=== PATIENT | female | born 1940 | race Caucasian/White ===

== ENCOUNTER 2016-05-17 21:39 | Emergency (ER) | payer MEDICARE, MEDICAID ==
[2016-05-17 21:53] VITALS: BP 156/57
--- NOTE | 2016-05-17 22:46 | RAD ---
INDICATION: Intracranial injury COMPARISON: CT brain August 16, 2015; TECHNIQUE: Noncontrast axial source images were acquired from the skull base to the vertex. FINDINGS: Ventricles/sulci: The ventricles and cisterns are normal in size and configuration for age. Brain parenchyma: There is periventricular and subcortical white matter change compatible with chronic ischemia. Intracranial hemorrhage:None. Extra-axial spaces: There are no abnormal extra axial fluid collections or evidence of extra-axial mass. Calvarium: There is no calvarial fracture or other calvarial abnormality. Scalp: There is no evidence of scalp or extracalvarial soft tissue abnormality. Paranasal sinuses/mastoid: The paranasal sinuses and mastoid air cells are clear. Other: None. IMPRESSION: Mild chronic right microvascular ischemic change. No acute findings.
--- NOTE | 2016-05-17 22:48 | RAD ---
INDICATION: Neck injury COMPARISON: CT neck January 10, 2015 TECHNIQUE: Noncontrast axial source images was performed from the skull base to the thoracic inlet. Coronal and and sagittal reformatted images were generated. FINDINGS: Vertebrae: There is no fracture or acute focal bony lesion. There are minor multilevel OsteoArthritic changes. Alignment: The craniocervical junction appears normal. The cervical vertebrae are normally aligned. Central Canal: There are no significant CT abnormalities of the central canal or foramina. MR imaging is a more sensitive method to evaluate the canal and foramina. Intervertebral disc spaces: The disc spaces are maintained. Brain: The visualized brain appears unremarkable. Soft tissues: The visualized soft tissue elements of the neck are unremarkable. The prevertebral soft tissues appear normal. The lung apices are clear. IMPRESSION: MINOR OSTEOARTHRITIS. NO ACUTE CT FINDINGS
== END 2016-05-17 23:42 | disposition left against medical advice (07) ==
LOC: ED 21:39
DX: S09.90XA Unspecified injury of head, initial encounter (principal); W19.XXXA Unspecified fall, initial encounter; Y93.9 Activity, unspecified; Y92.9 Unspecified place or not applicable; Y99.9 Unspecified external cause status; Z53.21 Procedure and treatment not carried out due to patient leaving prior to being seen by health care provider
CPT/HCPCS: 70450; 72125

== ENCOUNTER 2016-08-17 16:30 | Emergency (ER) | payer MEDICARE, MEDICAID ==
[2016-08-17] MEDS ORDERED: HYDROmorphone* 1 MG/ML 1 ML SYR IV ONE (17:48)
[2016-08-17] MEDS ORDERED: NS 0.9% 1000 ML* 2,000 ML IV ONE (17:48)
[2016-08-17 18:02] LABS: Hematocrit 39 % (35-47); Hemoglobin 12.7 g/dl (12.0-16.0); Mean Corpuscular HGB Conc 32 g/dl (31-36); Mean Corpuscular Hemoglobin 30 pg (27-31); Mean Corpuscular Volume 93 fL (80-97); Mean Platelet Volume 9 um3 (7.4-10.4); Red Blood Count 4.22 10^6/ul (4.0-5.4); Red Cell Distribution Width 14 % (10.5-15); White Blood Count 11.2 10^3/ul (3.5-10.8)
[2016-08-17 18:13] LABS: ALT 9 U/L (7-52); AST 13 U/L (13-39); Albumin 3.8 g/dL (3.2-5.2); Alkaline Phosphatase 37 U/L (34-104); Amylase 56 U/L (29-103); Anion Gap 6 mmol/L (2-11); BUN/Creatinine Ratio 19.2 (8-20); Blood Urea Nitrogen 20 mg/dL (6-24); C Reactive Protein < 1.00 mg/L (< 5.00); CO2 Carbon Dioxide 26 mmol/L (22-32); Calcium 9.5 mg/dL (8.6-10.3); Chloride 107 mmol/L (101-111); Creatine Kinase 49 U/L (10-223); EGFR African American 66.4 (>60); EGFR Non-African American 51.7 (>60); Globulin 2.8 g/dL (2-4); Glucose 91 mg/dL (70-100); Lipase 84 U/L (11.0-82.0); Potassium 3.6 mmol/L (3.5-5.0); Sodium 139 mmol/L (133-145); Total Protein 6.6 g/dL (6.4-8.9)
[2016-08-17] MEDS ORDERED: Iodixanol* (CONTRAST) 320 MG/ML 100 ML SDV IV ONE (18:16)
--- NOTE | 2016-08-17 19:18 | RAD ---
Indication: Back pain, right flank pain, history of abdominal aortic aneurysm. Contrast: Administered 100.0 ml of Contrast -- mgi/ml CTA of the abdomen and pelvis was performed after IV contrast administration. Coronal and sagittal as well as 3-D reconstructive images were obtained. There is fusiform dilatation of the abdominal aorta measuring 3.3 cm in length 2.3 cm in greatest AP dimension x 3.1 cm in width. There is common iliac artery dilatation measuring up to 17 mm on the right common artery. Peripheral thrombus is noted. The superior mesenteric artery and celiac axis are unremarkable. Origin of the renal arteries are unremarkable with no significant stenosis. The lung bases demonstrate no pleural fluid, nodules or masses. Heart is of normal size without evidence pericardial effusion. Liver is normal in size. No focal lesions or intrahepatic ductal dilatation is noted. Patient is status post cholecystectomy. Pancreas demonstrates no mass or pancreatic duct dilatation. The common duct is not dilated. Adrenal hyperplasia is noted. The kidneys demonstrate symmetric nephrograms. There is a calculi in the proximal right ureter measuring 3 mm. Periureteral infiltration is noted. This may represent a proximal right ureteral calculi. The left kidney is otherwise unremarkable No dilated loops of bowel are noted. The urinary bladder is unremarkable. No dilated loops of bowel are noted. The colon is filled with stool. IMPRESSION: FUSIFORM DILATATION OF THE DISTAL ABDOMINAL AORTA MEASURING 3.3 CM IN LENGTH X 2.3 CM AP X 3.1 CM IN WIDTH. THERE IS LIKELY PROXIMAL RIGHT HYDROURETER WITH PERIURETERAL INFILTRATION OF FAT AT THE PELVIC INLET LIKELY REPRESENTING URETERAL OBSTRUCTION WITH A 3 MM CALCULI.
--- NOTE | 2016-08-17 19:24 | RAD ---
Indication: Back pain. CT of the lumbar spine was obtained in the axial plane. Sagittal and coronal reconstructed images were obtained. Compression fracture of L1 and T11 is noted with near vertebral plana. The L1 vertebra is unchanged since previous exam of January 10, 2015. The T11 vertebra compression fracture was present on previous exam of December 16, 2015. Degenerative disc disease at L4-L5 and L5-S1 is noted. No jose fracture of the remainder of the vertebra is noted. Spinous processes are unremarkable. Right hydroureter is noted. Previously identified calculi in the pelvic Inlet is noted with periureteral infiltration of fat. Pelvic ring is intact. No other masses or fluid collections are noted. IMPRESSION: Right hydroureter with calculi in the right distal ureter. Compression fracture of L1 and T11 which was present on prior CT dated December 16, 2015.
[2016-08-17 20:27] LABS: Urine Bilirubin Negative (Negative); Urine Glucose Negative (Negative); Urine Nitrite Negative (Negative)
[2016-08-17] MEDS ORDERED: HYDROmorphone* 1 MG/ML 1 ML SYR IV SLOW PU ONE (20:30)
[2016-08-17] MEDS ORDERED: Tamsulosin CAP* 0.4 MG PO ONE (20:33)
[2016-08-17] MEDS ORDERED: HYDROmorphone TAB* 4 MG PO ONE (20:34)
[2016-08-17 21:29] VITALS: BP 180/83
--- NOTE | 2016-08-17 22:07 | ED ---
Ace Bernal Auryana, scribed for Bola Cuellar MD on 08/17/16 at 1814 . Abdominal Pain/Female - HPI Summary HPI Summary: 76 year old female presents with right flank pain starting this morning that has gotten progressively worse. She also reports dizziness/lightheadedness, increased urgency during the day, increased nocturia, and pedal edema, but denies any vomiting, CP, or SOB. She is on hydrocodone for chronic back pain with no improvement of flank pain. Patient states that she was seen at her PCP this morning who believed that the pain would subside - but the pain only became worse. She does reports a recent fall on Saturday. She is not on any blood thinners. PMHx is significant for DM, HTN, cholecystectomy, appendectomy, discectomy-lumbar, and OA/osteoporosis but no history kidney stones or aneurysms. She is on home O2 as needed. Social history is significant for tobacco use. - History of Current Complaint Chief Complaint: EDFlankPain Stated Complaint: FLANK PAIN Time Seen by Provider: 08/17/16 17:29 Hx Obtained From: Patient Hx Last Menstrual Period: N/A ?: No Onset/Duration: Gradual Onset, Lasting Days - since this morning, Still Present , Worse Since - progressively Timing: Constant Severity Initially: Mild Severity Currently: Moderate Pain Intensity: 10 Pain Scale Used: 0-10 Numeric Location: Flank - right Alleviating Factor(s): Nothing Associated Signs and Symptoms: Positive: Dizzy, Urinary Symptoms, Other: - PEDAL EDEMA. Negative: Chest Pain, Vomiting Allergies/Adverse Reactions: Allergies Allergy/AdvReac Type Severity Reaction Status Date / Time No Known Allergies Allergy Verified 01/26/16 15:16 PMH/Surg Hx/FS Hx/Imm Hx Endocrine/Hematology History: Reports: Hx Diabetes - hypoglycemic, Hx Thyroid Disease Denies: Hx Systemic Lupus Erythematosus Cardiovascular History: Reports: Hx Angina, Hx Hypercholesterolemia, Hx Hypertension, Hx Rheumatic Fever - A CHILD, Other Cardiovascular Problems/ Disorders - ANGINA Denies: Hx Congestive Heart Failure, Hx Pacemaker/ICD Respiratory History: Reports: Hx Seasonal Allergies, Other Respiratory Problems/ Disorders - SMOKER, ON OXYGEN AT 3 LITERS AT NIGHT Denies: Hx Asthma, Hx Chronic Obstructive Pulmonary Disease (COPD) GI History: Reports: Hx Gastroesophageal Reflux Disease, Hx Hiatal Hernia, Other GI Disorders - hiatal hernia Denies: Hx Ulcer History: Reports: Hx Renal Disease - hx of cyst removal, Other Problems/ Disorders - cysts removed from kidney Denies: Hx Dialysis Musculoskeletal History: Reports: Hx Arthritis - BILATERAL KNEES, BACK, BILATERAL HANDS, Hx Back Problems Denies: Hx Rheumatoid Arthritis Sensory History: Reports: Hx Contacts or Glasses Denies: Hx Hearing Aid Opthamlomology History: Reports: Hx Contacts or Glasses Neurological History: Reports: Hx Headaches, Hx Migraine Denies: Hx Dementia, Hx Seizures Psychiatric History: Reports: Hx Anxiety, Hx Depression Denies: Hx Panic Disorder, Hx Substance Abuse - Cancer History Cancer Type, Location and Year: Reports tumor in pelvis , melanoma, Hx Chemotherapy: No Hx Radiation Therapy: No Hx Palliative Cancer Treatment: No - Surgical History Surgery Procedure, Year, and Place: 1983 RIGHT KIDNEY SURGERY TO REMOVE CYST IN [place], 1984 [place]Y, [place] , 1985 BACK SURGERY, [place], 1973 HYSTERECTOMY, [place] 2004 , MELANOMA FROM LEFT ARM, 2009 AND 2013,NOSE SURGERY TO REMOVE LESION, [place], PARTIAL THYROID REMOVAL, LEFT SIDE T&A, GLAND REMOVAL FROM THROAT, Hx Anesthesia Reactions: No - Immunization History Date of Tetanus Vaccine: Unk Date of Influenza Vaccine: 01/09/13 Infectious Disease History: No Infectious Disease History: Reports: Hx Shingles - x2 Denies: Hx Hepatitis, Hx Human Immunodeficiency Virus (HIV), History Other Infectious Disease, Traveled Outside the in Last 30 Days - Family History Known Family History: Positive: Cardiac Disease - CHF, Other - CANCER - Social History Occupation: Retired Lives: Alone Alcohol Use: None Substance Use Type: Reports: None Smoking Status (MU): Heavy Every Day Tobacco Smoker Type: Cigarettes Amount Used/How Often: 1/2 PPD Length of Time of Smoking/Using Tobacco: 60 years Have You Smoked in the Last Year: Yes Review of Systems Positive: Other - lightheadedness/dizziness. Negative: Fever Eyes: Negative ENT: Negative Cardiovascular: Negative Negative: Chest Pain Respiratory: Negative Negative: Shortness Of Breath Gastrointestinal: Negative Negative: Vomiting Positive: frequency - increased, flank pain, other - increased nocturia Positive: Edema - pedal Skin: Negative Neurological: Negative Psychological: Normal All Other Systems Reviewed And Are Negative: Yes Physical Exam - Summary Physical Exam Summary: The patient is well-nourished in mild distress and in no acute pain. The skin is warm and dry and skin color reflects adequate perfusion. HEENT: The head is normocephalic and atraumatic. The pupils are equal and reactive. The conjunctivae are clear and without drainage. Nares are patent and without drainage. Mouth reveals drymucous membranes and the throat is without erythema and exudate. The external ears are intact. DENTURES Neck is supple with full range of motion and non-tender. There are no carotid bruits. There is no neck vein distension. Respiratory: Chest is non-tender. Lungs are clear to auscultation and breath sounds are symmetrical and equal. Dimished breath sounds Cardiovascular: Hear is regular rate and rhythm. There is no murmur or rub auscultated. There is no peripheral edema and pulses are symmetrical and equal. Abdomen: The abdomen is soft and non-tender but with right flank pain. Marked tenderness over the abdomen without distension. There are normal bowel sounds heard in all four quadrants and there is no organomegaly palpated and no pulsatile mass. Musculoskeletal: There is back pain noted - L4/L5 without swelling or edema. Extremities are non-tender with full range of motion. There is good capillary refill. There is peripheral edema without erythema or warmth but no calf tenderness elicited. Neurological: Patient is alert and oriented to person, place and time. The patient has symmetrical motor strength in all four extremities. Cranial nerves are grossly intact. Deep tendon reflexes are symmetrical and equal in all four extremities. Psychiatric: The patient has an appropriate affect and does not exhibit any anxiety or depression. Triage Information Reviewed: Yes Vital Signs On Initial Exam: Initial Vitals Temp Pulse Resp BP Pulse Ox 98.2 F 66 20 189/68 100 08/17/16 16:33 08/17/16 16:33 08/17/16 16:33 08/17/16 16:33 08/17/16 16:33 Vital Signs Reviewed: Yes - [place] Coma Scale Coma Scale Total: 15 Diagnostics - Vital Signs Vital Signs Temp Pulse Resp BP Pulse Ox 08/17/16 17:05 65 16 96 08/17/16 17:02 164/64 08/17/16 16:35 98.2 F 66 20 189/68 99 08/17/16 16:33 98.2 F 66 20 189/68 100 - Laboratory Lab Results: Lab Results 08/17/16 08/17/16 08/17/16 Range/Units 17:30 17:30 17:30 WBC 11.2 H (3.5-10.8) 10^3/ul RBC 4.22 (4.0-5.4) 10^6/ul Hgb 12.7 (12.0-16.0) g/dl Hct 39 (35-47) % MCV 93 (80-97) fL MCH 30 (27-31) pg MCHC 32 (31-36) g/dl RDW 14 (10.5-15) % Plt Count 254 (150-450) 10^3/ul MPV 9 (7.4-10.4) um3 Neut % (Auto) 64.1 (38-83) % Lymph % (Auto) 24.6 L (25-47) % [place] % (Auto) 7.5 (1-9) % Eos % (Auto) 2.7 (0-6) % Baso % (Auto) 1.1 (0-2) % Absolute Neuts (auto) 7.2 (1.5-7.7) 10^3/ul Absolute Lymphs (auto) 2.8 (1.0-4.8) 10^3/ul Absolute Monos (auto) 0.8 (0-0.8) 10^3/ul Absolute Eos (auto) 0.3 (0-0.6) 10^3/ul Absolute Basos (auto) 0.1 (0-0.2) 10^3/ul Absolute Nucleated RBC 0.01 10^3/ul Nucleated RBC % 0.1 INR (Anticoag Therapy) (0.89-1.11) Sodium 139 (133-145) mmol/L Potassium 3.6 (3.5-5.0) mmol/L Chloride 107 (101-111) mmol/L Carbon Dioxide 26 (22-32) mmol/L Anion Gap 6 (2-11) mmol/L BUN 20 (6-24) mg/dL Creatinine 1.04 H (0.51-0.95) mg/dL Est GFR ( Amer) 66.4 (>60) Est GFR (Non-Af Amer) 51.7 (>60) BUN/Creatinine Ratio 19.2 (8-20) Glucose 91 (70-100) mg/dL Lactic Acid 0.7 (0.5-2.0) mmol/L Calcium 9.5 (8.6-10.3) mg/dL Total Bilirubin 0.40 (0.2-1.0) mg/dL AST 13 (13-39) U/L ALT 9 (7-52) U/L Alkaline Phosphatase 37 (34-104) U/L Total Creatine Kinase 49 (10-223) U/L Troponin I 0.00 (<0.04) ng/mL C-Reactive Protein < 1.00 (< 5.00) mg/L Total Protein 6.6 (6.4-8.9) g/dL Albumin 3.8 (3.2-5.2) g/dL Globulin 2.8 (2-4) g/dL Albumin/Globulin Ratio 1.4 (1-3) Amylase 56 (29-103) U/L Lipase 84 H (11.0-82.0) U/L Urine Color Urine Appearance Urine pH (5-9) Ur Specific [place] (1.010-1.030) Urine Protein (Negative) Urine Ketones (Negative) Urine Blood (Negative) Urine Nitrate (Negative) Urine Bilirubin (Negative) Urine Urobilinogen (Negative) Ur Leukocyte Esterase (Negative) Urine Glucose (Negative) 08/17/16 08/17/16 Range/Units 17:30 18:57 WBC (3.5-10.8) 10^3/ul RBC (4.0-5.4) 10^6/ul Hgb (12.0-16.0) g/dl Hct (35-47) % MCV (80-97) fL MCH (27-31) pg MCHC (31-36) g/dl RDW (10.5-15) % Plt Count (150-450) 10^3/ul MPV (7.4-10.4) um3 Neut % (Auto) (38-83) % Lymph % (Auto) (25-47) % [place] % (Auto) (1-9) % Eos % (Auto) (0-6) % Baso % (Auto) (0-2) % Absolute Neuts (auto) (1.5-7.7) 10^3/ul Absolute Lymphs (auto) (1.0-4.8) 10^3/ul Absolute Monos (auto) (0-0.8) 10^3/ul Absolute Eos (auto) (0-0.6) 10^3/ul Absolute Basos (auto) (0-0.2) 10^3/ul Absolute Nucleated RBC 10^3/ul Nucleated RBC % INR (Anticoag Therapy) 0.93 (0.89-1.11) Sodium (133-145) mmol/L Potassium (3.5-5.0) mmol/L Chloride (101-111) mmol/L Carbon Dioxide (22-32) mmol/L Anion Gap (2-11) mmol/L BUN (6-24) mg/dL Creatinine (0.51-0.95) mg/dL Est GFR ( Amer) (>60) Est GFR (Non-Af Amer) (>60) BUN/Creatinine Ratio (8-20) Glucose (70-100) mg/dL Lactic Acid (0.5-2.0) mmol/L Calcium (8.6-10.3) mg/dL Total Bilirubin (0.2-1.0) mg/dL AST (13-39) U/L ALT (7-52) U/L Alkaline Phosphatase (34-104) U/L Total Creatine Kinase (10-223) U/L Troponin I (<0.04) ng/mL C-Reactive Protein (< 5.00) mg/L Total Protein (6.4-8.9) g/dL Albumin (3.2-5.2) g/dL Globulin (2-4) g/dL Albumin/Globulin Ratio (1-3) Amylase (29-103) U/L Lipase (11.0-82.0) U/L Urine Color Yellow Urine Appearance Clear Urine pH 6.0 (5-9) Ur Specific [place] 1.013 (1.010-1.030) Urine Protein Negative (Negative) Urine Ketones Negative (Negative) Urine Blood Negative (Negative) Urine Nitrate Negative (Negative) Urine Bilirubin Negative (Negative) Urine Urobilinogen Negative (Negative) Ur Leukocyte Esterase Negative (Negative) Urine Glucose Negative (Negative) Result Diagrams: 08/17/16 17:30 08/17/16 17:30 Lab Statement: Any lab studies that have been ordered have been reviewed, and results considered in the medical decision making process. - CT CTA ABD/PEL CT Interpretation: Positive (See Comments) - IMPRESSION: FUSIFORM DILATATION OF THE DISTAL ABDOMINAL AORTA MEASURING 3.3 CM IN LENGTH X 2.3 CM AP X 3.1 CM IN WIDTH. THERE IS LIKELY PROXIMAL RIGHT HYDROURETER WITH PERIURETERAL INFILTRATION OF FAT AT THE PELVIC INLET LIKELY REPRESENTING URETERAL OBSTRUCTION WITH A [address] Interpretation Completed By: Radiologist LUMBAR CT Interpretation: Positive (See Comments) - IMPRESSION: Right hydroureter with calculi in the right distal ureter. Compression fracture of L1 and T11 which was present on prior CT dated December 16, 2015. CT Interpretation Completed By: Radiologist - EKG 17:56 EKG Interpretation: NSR, nml axis, and no ST elevation Re-Evaluation - Re-Evaluation First Eval Re-Evaluation Time: 20:17 Abdominal Pain Fem Course/Dx - Course Course Of Treatment: 76 year old female presents with right flank pain starting this morning that has gotten progressively worse. She also reports dizziness/ lightheadedness, increased urgency during the day, increased nocturia, and pedal edema, but denies any vomiting, CP, or SOB. She is on hydrocodone for chronic back pain with no improvement of flank pain. Patient states that she was seen at her PCP this morning who believed that the pain would subside - but the pain only became worse. She does reports a recent fall on Saturday. She is not on any blood thinners. PMHx is significant for DM, HTN, cholecystectomy, appendectomy, discectomy-lumbar, and OA/osteoporosis but no history kidney stones or aneurysms. She is on home O2 as needed. Social history is significant for tobacco use. LABS:elevated lipase (84), elevated WBC (11.2), elevated creatinine (1.04); lactic, INR, troponin, CRP, and amylase WNL. UA: negative and WNL. CT ABD/PEL: IMPRESSION: FUSIFORM DILATATION OF THE DISTAL ABDOMINAL AORTA MEASURING 3.3 CM IN LENGTH X 2.3 CM AP X 3.1 CM IN WIDTH. THERE IS LIKELY PROXIMAL RIGHT HYDROURETER WITH PERIURETERAL INFILTRATION OF FAT AT THE PELVIC INLET LIKELY REPRESENTING URETERAL OBSTRUCTION WITH A [address]: IMPRESSION: Right hydroureter with calculi in the right distal ureter. Compression fracture of L1 and T11 which was present on prior CT dated December 16, 2015. On re-evaulation of patient - wishes to go home. Discussed labs, imaging, and plan of action. Will discharge home with pain medication for break through pain. Recommended follow up with PCP. Dx: renal calculi and aortic aneurysm. - Diagnoses Differential Diagnosis: Positive: Abdominal Aortic Aneurysm, Renal Colic, Urinary Tract Infection, Other - lumbar compression, aneurysm, obstructive uropathy Provider Diagnoses: Renal calculi, Aortic aneurysm, Hydronephrosis with ureteral calculus Discharge - Discharge Plan Condition: Stable Disposition: HOME Prescriptions: Tamsulosin CAP* [Flomax CAP*] 0.4 mg PO DAILY #7 cap Patient Education Materials: Kidney Stones (ED), Tamsulosin (By mouth) Referrals: Dimas RN TOMBSTONE POLISHERHaylee [Primary Care Provider] - 3 Days The documentation as recorded by the Ace moore Auryana accurately reflects the service I personally performed and the decisions made by , Bola Cuellar MD.
== END 2016-08-17 21:29 | disposition home or self-care (01) ==
LOC: ED 16:30
DX: N13.30 Unspecified hydronephrosis (principal); N20.0 Calculus of kidney; I71.9 Aortic aneurysm of unspecified site, without rupture; F17.210 Nicotine dependence, cigarettes, uncomplicated; E11.649 Type 2 diabetes mellitus with hypoglycemia without coma; I10 Essential (primary) hypertension
CPT/HCPCS: 36415; 72131; 74174; 80053; 81003; 82150; 82550; 83605; 83690; 84484; 85025; 85610; 86140; 93005; 96360; 96374; 96375; 99283; A9270-GY; J1170; Q9967

== ENCOUNTER 2016-09-06 19:03 | Emergency (ER) | payer MEDICAID, MEDICARE ==
[2016-09-06 20:32] VITALS: BP 164/74
== END 2016-09-06 21:07 | disposition home or self-care (01) ==
LOC: ED 19:03
DX: M54.5 Low back pain (principal); Z53.21 Procedure and treatment not carried out due to patient leaving prior to being seen by health care provider

== ENCOUNTER 2016-11-27 20:09 | Emergency (ER) | payer MEDICARE ==
[2016-11-27] MEDS ORDERED: Silver Nitrate/Potassium Nitr* 1 EA STICK TOPICAL ONE ×2 (22:26→22:40)
[2016-11-27 22:39] LABS: Hematocrit 36 % (35-47); Hemoglobin 12.2 g/dl (12.0-16.0); Mean Corpuscular HGB Conc 34 g/dl (31-36); Mean Corpuscular Hemoglobin 31 pg (27-31); Mean Corpuscular Volume 92 fL (80-97); Mean Platelet Volume 9 um3 (7.4-10.4); Red Blood Count 3.97 10^6/ul (4.0-5.4); Red Cell Distribution Width 15 % (10.5-15)
[2016-11-27 22:51] LABS: Albumin 3.7 g/dL (3.2-5.2); BUN/Creatinine Ratio 22.4 (8-20); Calcium 9.4 mg/dL (8.6-10.3); EGFR African American 71.2 (>60); EGFR Non-African American 55.3 (>60); Globulin 2.8 g/dL (2-4); Potassium 3.5 mmol/L (3.5-5.0); Total Bilirubin 0.5 mg/dL (0.2-1.0); Total Protein 6.5 g/dL (6.4-8.9)
--- NOTE | 2016-11-28 00:48 | ED ---
Neelima Bernal Thomas, scribed for Brandan Rowland on 11/27/16 at 2201 . Throat Pain/Nasal Congestion - HPI Summary HPI Summary: The pt is a 76 y/o F presenting to the ED c/o throat bleeding that began today at 19:00 s/p a throat biopsy that was performed at 15:00. The biopsy was performed under local anesthesia by Dr. Peters, prototype technician, as a diagnostic test for throat cancer. The bleeding is fairly constant and is described as spitting up clots of blood. The bleeding is aggravated and alleviated by nothing. The patient has treated the bleeding with nothing DRIER AND PULVERIZER TENDER. Pt additionally c/o chronic L ear pain and a chronic productive cough. Pt denies cough in the ED, CP, and any pain except her chronic ear ache. - History of Current Complaint Chief Complaint: EDGeneral Time Seen by Provider: 11/27/16 21:44 Hx Obtained From: Patient, Family/Director Of Outreach - daughter, in room Onset/Duration: Sudden Onset, Still Present Associated Signs And Symptoms: Positive: Negative Cough: Productive - no cough in the ED, but she does have a chronic productive cough Related History: Other (Noted In Comments) - throat biopsy performed today at 15 :00 - Allergies/Home Medications Allergies/Adverse Reactions: Allergies Allergy/AdvReac Type Severity Reaction Status Date / Time No Known Allergies Allergy Verified 11/27/16 20:21 PMH/Surg Hx/FS Hx/Imm Hx Previously Healthy: No Endocrine/Hematology History: Reports: Hx Diabetes - hypoglycemic, Hx Thyroid Disease Denies: Hx Systemic Lupus Erythematosus Cardiovascular History: Reports: Hx Angina, Hx Hypercholesterolemia, Hx Hypertension, Hx Rheumatic Fever - A CHILD, Other Cardiovascular Problems/ Disorders - ANGINA Denies: Hx Congestive Heart Failure, Hx Pacemaker/ICD Respiratory History: Reports: Hx Seasonal Allergies, Other Respiratory Problems/ Disorders - SMOKER, ON OXYGEN AT 3 LITERS AT NIGHT Denies: Hx Asthma, Hx Chronic Obstructive Pulmonary Disease (COPD) GI History: Reports: Hx Gastroesophageal Reflux Disease, Hx Hiatal Hernia, Other GI Disorders - hiatal hernia Denies: Hx Ulcer History: Reports: Hx Renal Disease - hx of cyst removal, Other Problems/ Disorders - cysts removed from kidney Denies: Hx Dialysis Musculoskeletal History: Reports: Hx Arthritis - BILATERAL KNEES, BACK, BILATERAL HANDS, Hx Back Problems Denies: Hx Rheumatoid Arthritis Sensory History: Reports: Hx Contacts or Glasses Denies: Hx Hearing Aid Opthamlomology History: Reports: Hx Contacts or Glasses Neurological History: Reports: Hx Headaches, Hx Migraine Denies: Hx Dementia, Hx Seizures Psychiatric History: Reports: Hx Anxiety, Hx Depression Denies: Hx Panic Disorder, Hx Substance Abuse - Cancer History Cancer Type, Location and Year: Reports tumor in pelvis , melanoma, Hx Chemotherapy: No Hx Radiation Therapy: No Hx Palliative Cancer Treatment: No - Surgical History Surgery Procedure, Year, and Place: 1983 RIGHT KIDNEY SURGERY TO REMOVE CYST IN [place], 1984 OPEN CHOLE[place]STECTOMY, [place] , 1985 BACK SURGERY, [place], 1973 HYSTERECTOMY, [facility] [place] 2005 , MELANOMA FROM LEFT ARM, 2009 AND 2013,NOSE SURGERY TO REMOVE LESION, [place], PARTIAL THYROID REMOVAL, LEFT SIDE T&A, GLAND REMOVAL FROM THROAT, Hx Anesthesia Reactions: No - Immunization History Date of Tetanus Vaccine: Unk Date of Influenza Vaccine: 01/09/13 Infectious Disease History: No Infectious Disease History: Reports: Hx Shingles - x2 Denies: Hx Hepatitis, Hx Human Immunodeficiency Virus (HIV), History Other Infectious Disease, Traveled Outside the in Last 30 Days - Family History Known Family History: Positive: Cardiac Disease - CHF, Other - CANCER - Social History Alcohol Use: None Substance Use Type: Reports: None Smoking Status (MU): Heavy Every Day Tobacco Smoker Type: Cigarettes Amount Used/How Often: 1/2 PPD Length of Time of Smoking/Using Tobacco: 60 years Have You Smoked in the Last Year: Yes Review of Systems Negative: Fever Positive: Ear Ache - L, chronic, Other - POS: throat bleeding (onset today 19: 00 s/p biopsy) Negative: Chest Pain Positive: Cough - chronic and productive, although none in the ED Negative: Other - NEG: any pain (excet ear ache) All Other Systems Reviewed And Are Negative: Yes Physical Exam Triage Information Reviewed: Yes Vital Signs On Initial Exam: Initial Vitals Temp Pulse Resp BP Pulse Ox 97.6 F 67 16 153/69 98 11/27/16 20:23 11/27/16 20:23 11/27/16 20:23 11/27/16 20:23 11/27/16 20:23 Vital Signs Reviewed: Yes Appearance: Positive: Well-Appearing, No Pain Distress Skin: Positive: Warm, Skin Color Reflects Adequate Perfusion, Dry Head/Face: Positive: Normal Head/Face Inspection Eyes: Positive: EOMI, JOHNNIE ENT: Positive: Other - bleeding from the left side of his tonsillar area. mild bleeding from the biopsy site Neck: Positive: Supple, Nontender Respiratory/Lung Sounds: Positive: Clear to Auscultation, Breath Sounds Present Cardiovascular: Positive: RRR, Pulses are Symmetrical in both Upper and Lower Extremities Abdomen Description: Positive: Nontender, Soft Bowel Sounds: Positive: Present Musculoskeletal: Positive: Normal, Strength/ROM Intact Neurological: Positive: Normal, Sensory/Motor Intact, Alert, Oriented to Person Place, Time Diagnostics - Vital Signs Vital Signs Temp Pulse Resp BP Pulse Ox 11/27/16 21:38 66 95 11/27/16 21:36 155/87 11/27/16 20:23 97.6 F 67 16 153/69 98 - Laboratory Lab Results: Lab Results 11/27/16 11/27/16 11/27/16 Range/Units 22:27 22:27 22:27 WBC 6.0 (3.5-10.8) 10^3/ul RBC 3.97 L (4.0-5.4) 10^6/ul Hgb 12.2 (12.0-16.0) g/dl Hct 36 (35-47) % MCV 92 (80-97) fL MCH 31 (27-31) pg MCHC 34 (31-36) g/dl RDW 15 (10.5-15) % Plt Count 278 (150-450) 10^3/ul MPV 9 (7.4-10.4) um3 Neut % (Auto) 36.9 L (38-83) % Lymph % (Auto) 48.9 H (25-47) % Bailey % (Auto) 9.6 H (1-9) % Eos % (Auto) 4.3 (0-6) % Baso % (Auto) 0.3 (0-2) % Absolute Neuts (auto) 2.2 (1.5-7.7) 10^3/ul Absolute Lymphs (auto) 2.9 (1.0-4.8) 10^3/ul Absolute Monos (auto) 0.6 (0-0.8) 10^3/ul Absolute Eos (auto) 0.3 (0-0.6) 10^3/ul Absolute Basos (auto) 0 (0-0.2) 10^3/ul Absolute Nucleated RBC 0 10^3/ul Nucleated RBC % 0 INR (Anticoag Therapy) 1.00 (0.89-1.11) APTT 31.1 (26.0-36.3) seconds Sodium 136 (133-145) mmol/L Potassium 3.5 (3.5-5.0) mmol/L Chloride 106 (101-111) mmol/L Carbon Dioxide 25 (22-32) mmol/L Anion Gap 5 (2-11) mmol/L BUN 22 (6-24) mg/dL Creatinine 0.98 H (0.51-0.95) mg/dL Est GFR ( Amer) 71.2 (>60) Est GFR (Non-Af Amer) 55.3 (>60) BUN/Creatinine Ratio 22.4 H (8-20) Glucose 92 (70-100) mg/dL Calcium 9.4 (8.6-10.3) mg/dL Total Bilirubin 0.50 (0.2-1.0) mg/dL AST 18 (13-39) U/L ALT 12 (7-52) U/L Alkaline Phosphatase 31 L (34-104) U/L Total Protein 6.5 (6.4-8.9) g/dL Albumin 3.7 (3.2-5.2) g/dL Globulin 2.8 (2-4) g/dL Albumin/Globulin Ratio 1.3 (1-3) Result Diagrams: 11/27/16 22:27 11/27/16 22:27 Lab Statement: Any lab studies that have been ordered have been reviewed, and results considered in the medical decision making process. Re-Evaluation - Re-Evaluation First Eval Re-Evaluation Time: 22:47 Change: Improved Comment: There is a large clot. It has stopped bleeding. Second Eval Re-Evaluation Time: 23:53 Change: Worse Comment: She has continued to bleed EENT Course/Dx - Course Assessment/Plan: The pt is a 76 y/o F presenting to the ED c/o throat bleeding that began today at 19:00 s/p a throat biopsy that was performed at 15:00. The biopsy was performed under local anesthesia by Dr. Peters, prototype technician, as a diagnostic test for throat cancer. The bleeding is fairly constant and is described as spitting up clots of blood. The bleeding is aggravated and alleviated by nothing. The patient has treated the bleeding with nothing DRIER AND PULVERIZER TENDER. Pt additionally c/o chronic L ear pain and a chronic productive cough. Pt denies cough in the ED, CP, and any pain except her chronic ear ache. In the ED course Arzol Silver Nitrate as applied. Bloodwork shows RBC 3.97. I consulted with Dr. Lee Peters ENT, who performed the patients biopsy today. I also consulted with Dr. Underwood ENT, regarding the patients care. I also consulted with Dr. Duong Chapman EM at [place], who accepts the patient for transfer to [facility]. She is diagnosed with postoperative bleeding s/p labs. - Diagnoses Provider Diagnoses: Postoperative bleeding from mouth, S/P biopsy, Tonsillar tumor - Provider Notifications Discussed Care Of Patient With: Lee Peters Time Discussed With Above Provider: 10:00 Instructed by Provider To: Other - I consulted with Dr. Peters ENT, regarding the patient's care. I also consulted with Dr. Underwood ENT, regarding the patient's care at 10:48. I also consulted with Dr. Duong Chapman, ED physician at [place], at 00:20. He accepts the patient for transfer. - Critical Care Time Critical Care Time: 30-74 min - tried to cautarise the bleeding site but unable to contain the bleeding. Discharge - Discharge Plan Condition: Stable Disposition: TRANS HIGHER LVL OF CARE FAC Discharge Disposition Comment: Transfer to [facility] ED Referrals: Dimas HERNANDEZ LAB SUPPORT SERVICE TECHHaylee [Primary Care Provider] - The documentation as recorded by the Neelima moore Thomas accurately reflects the service I personally performed and the decisions made by me, Brandan Rowland.
[2016-11-28 01:36] VITALS: BP 178/88
== END 2016-11-28 01:43 | disposition short-term general hospital (02) ==
LOC: ED 20:09
DX: K91.840 Postprocedural hemorrhage of a digestive system organ or structure following a digestive system procedure (principal); H92.02 Otalgia, left ear; R05 Cough
CPT/HCPCS: 36415; 80053; 85025; 85610; 85730; 99283; A9270-GY

== ENCOUNTER 2017-01-23 13:37 | Emergency (ER) | payer MEDICARE, MEDICAID ==
[2017-01-23] MEDS ORDERED: Aspirin Low Dose CHEW TAB* 81 MG PO ONE (13:47)
--- NOTE | 2017-01-23 14:28 | RAD ---
Indication: Chest pain, dizziness. Tobacco use. Oxygen dependent. Comparison: May 05, 2014 CT. Technique: Upright AP 1355 hours Report: Elevated lung volumes and both diffuse mild prominence of the interstitial markings and patchy rarefaction of the mid to upper lung zone interstitial markings. No focal pulmonary lesion, compelling alveolar consolidation, pleural effusion, pneumothorax. Cardiomegaly. Unremarkable central pulmonary vasculature and mediastinal contours. IMPRESSION: Stigmata of obstructive lung disease. No acute pulmonary or cardiac process evident.
[2017-01-23 14:36] VITALS: BP 155/65
[2017-01-23 14:40] LABS: Hematocrit 34 % (35-47); Hemoglobin 11.3 g/dl (12.0-16.0); Mean Corpuscular HGB Conc 33 g/dl (31-36); Mean Corpuscular Hemoglobin 30 pg (27-31); Mean Corpuscular Volume 92 fL (80-97); Mean Platelet Volume 8 um3 (7.4-10.4); Red Blood Count 3.71 10^6/ul (4.0-5.4); Red Cell Distribution Width 14 % (10.5-15); White Blood Count 5.3 10^3/ul (3.5-10.8)
[2017-01-23] MEDS ORDERED: NS 0.9% 1000 ML* 1,000 ML IV ONE (15:00)
[2017-01-23 15:01] LABS: Troponin I 0.01 ng/mL (<0.04)
[2017-01-23 15:03] LABS: Albumin 3.7 g/dL (3.2-5.2); BUN/Creatinine Ratio 22.9 (8-20); Calcium 9.1 mg/dL (8.6-10.3); EGFR African American 72.9 (>60); EGFR Non-African American 56.7 (>60); Globulin 2.8 g/dL (2-4); Potassium 3.4 mmol/L (3.5-5.0); Total Bilirubin 0.5 mg/dL (0.2-1.0); Total Protein 6.5 g/dL (6.4-8.9)
[2017-01-23] MEDS ORDERED: Iodixanol* (CONTRAST) 320 MG/ML 100 ML SDV IV ONE (15:34)
[2017-01-23] MEDS ORDERED: Albuterol/Ipratropium NEB.SOL* Albuterol 2.5 MG/Ipratropium 0.5 MG 3 ML INH ONE (15:54)
--- NOTE | 2017-01-23 16:17 | RAD ---
INDICATION: Abdominal pain. Known abdominal aortic aneurysm. COMPARISON: CTA abdomen and pelvis August 17, 2016 TECHNIQUE: Axial source images were obtained from the hemidiaphragms to the symphysis pubis following administration of oral and intravenous contrast. 99 mL Visipaque 320 was utilized. Coronal and sagittal reconstructed images were acquired. Lung bases: There are emphysematous changes in lung bases. Liver: The liver is normal in size. There are no masses. There is no ductal dilatation. Gallbladder: Cholecystectomy. Spleen: The spleen is normal in size. There are no masses. Pancreas: There is no focal pancreatic mass or ductal dilatation. Adrenal glands: There is no evidence of adrenal mass. Kidneys: The kidneys are normal in size and position. There are prompt nephrograms and there is prompt excretion bilaterally. There are no new renal parenchymal masses. There is a 1.8 cm midpole right renal cyst There is no evidence of nephrolithiasis. Adenopathy: There is no evidence of adenopathy by size criteria. Fluid collections: There are no free or localized fluid collections. Vessels: There are aortic and iliac intimal calcifications. 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 Both aneurysms are associated with a small amount of circumferential thrombus. The visceral branches arise satisfactorily. The IVC appears normal. GI tract: There are no acute CT bowel findings. There is no obstruction. The stomach and small bowel appear normal. The lower GI tract is normal. The cecum, ileocecal valve, and terminal ileum appear normal. The appendix is visualized and appear normal. Pelvic organs: The uterus and adnexa appear normal Bladder: There are no bladder masses. Abdominal and pelvic soft tissues: The extraperitoneal abdominal and pelvic soft tissues appear normal.. Osseous structures: There are no acute osseous findings. There are compression deformities of L1 and T11, unchanged. There is degenerative disease at L4-L5 and L5-S1 Other: None IMPRESSION: 1. Fusiform aneurysm of the infrarenal abdominal aorta measuring 2.9 cm, unchanged. 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 2. 1.8 cm right renal cyst. 3. Multiple compression deformities, unchanged.
[2017-01-23] MEDS ORDERED: predniSONE TAB* 50 MG PO ONE (17:22)
[2017-01-23] MEDS ORDERED: Azithromycin TAB* 250 MG PO ONE (17:23)
[2017-01-23] MEDS ORDERED: predniSONE TAB* 20 MG PO ONE (18:00)
--- NOTE | 2017-01-24 15:56 | ED ---
Nicholas Bernal Alfonso, scribed for Angelita Ratliff MD on 01/23/17 at 1436 . HPI Chest Pain - HPI Summary HPI Summary: This patient is a 76 year old F presenting to [facility] accompanied by a female with a chief complaint of pressured CP since 629 today. The patient rates the pain 9/10 in severity. Symptoms aggravated by nothing. Symptoms alleviated by nothing. Patient reports SOB, productive coughing (mucous), nausea, abdominal pain (lasting years), dizziness, weakness, headache, and a fall (4 years ago). Patient denies calf swelling, arm pain, jaw pain, vomiting and diarrhea. Dr. Santiago is her alterations expert. - History of Current Complaint Chief Complaint: EDChestPainROMI Time Seen by Provider: 01/23/17 13:47 Hx Obtained From: Patient Hx Last Menstrual Period: N/A Onset/Duration: Started Hours Ago - 629 today, Still Present Timing: Constant Current Severity: Severe Pain Intensity: 9 Pain Scale Used: 0-10 Numeric Chest Pain Radiates: No Character: Pressure/Squeezing Aggravating Factor(s): Nothing Alleviating Factor(s): Nothing Associated Signs and Symptoms: Positive: Other: - Patient reports SOB, productive coughing (mucous), nausea, abdominal pain (lasting years), dizziness , weakness, headache, and a fall (4 years ago). Patient denies calf swelling, arm pain, jaw pain, vomiting and diarrhea. - Allergy/Home Medications Allergies/Adverse Reactions: Allergies Allergy/AdvReac Type Severity Reaction Status Date / Time No Known Allergies Allergy Verified 01/23/17 13:41 PMH/Surg Hx/FS Hx/Imm Hx Endocrine/Hematology History: Reports: Hx Diabetes - hypoglycemic, Hx Thyroid Disease Denies: Hx Systemic Lupus Erythematosus Cardiovascular History: Reports: Hx Angina, Hx Hypercholesterolemia, Hx Hypertension, Hx Myocardial Infarction, Hx Rheumatic Fever - A CHILD, Other Cardiovascular Problems/Disorders - ANGINA Denies: Hx Congestive Heart Failure, Hx Pacemaker/ICD Respiratory History: Reports: Hx Seasonal Allergies, Other Respiratory Problems/ Disorders - SMOKER, ON OXYGEN AT 3 LITERS AT NIGHT Denies: Hx Asthma, Hx Chronic Obstructive Pulmonary Disease (COPD) GI History: Reports: Hx Gastroesophageal Reflux Disease, Hx Hiatal Hernia, Other GI Disorders - hiatal hernia Denies: Hx Ulcer History: Reports: Hx Renal Disease - hx of cyst removal, Other Problems/ Disorders - cysts removed from kidney Denies: Hx Dialysis Musculoskeletal History: Reports: Hx Arthritis - BILATERAL KNEES, BACK, BILATERAL HANDS, Hx Back Problems Denies: Hx Rheumatoid Arthritis Sensory History: Reports: Hx Contacts or Glasses Denies: Hx Hearing Aid Opthamlomology History: Reports: Hx Contacts or Glasses Neurological History: Reports: Hx Headaches, Hx Migraine Denies: Hx Dementia, Hx Seizures Psychiatric History: Reports: Hx Anxiety, Hx Depression, Hx Panic Disorder Denies: Hx Substance Abuse - Cancer History Cancer Type, Location and Year: Reports tumor in pelvis , melanoma, Hx Chemotherapy: No Hx Radiation Therapy: No Hx Palliative Cancer Treatment: No - Surgical History Surgery Procedure, Year, and Place: 1983 RIGHT KIDNEY SURGERY TO REMOVE CYST IN [place], 1984 OPEN CHOLECYSTECTOMY, [place] , 1985 BACK SURGERY, [place], 1973 HYSTERECTOMY, [facility] [place] 2004 , MELANOMA FROM LEFT ARM, 2009 AND 2013,NOSE SURGERY TO REMOVE LESION, [place], PARTIAL THYROID REMOVAL, LEFT SIDE T&A, GLAND REMOVAL FROM THROAT, Hx Anesthesia Reactions: No - Immunization History Date of Tetanus Vaccine: Unk Date of Influenza Vaccine: 01/09/13 Infectious Disease History: No Infectious Disease History: Reports: Hx Shingles - x2 Denies: Hx Hepatitis, Hx Human Immunodeficiency Virus (HIV), History Other Infectious Disease, Traveled Outside the in Last 30 Days - Family History Known Family History: Positive: Cardiac Disease - CHF, Other - CANCER - Social History Lives: Alone Alcohol Use: None Substance Use Type: Reports: None Smoking Status (MU): Heavy Every Day Tobacco Smoker Type: Cigarettes Amount Used/How Often: 1/2 PPD Length of Time of Smoking/Using Tobacco: 60 years Have You Smoked in the Last Year: Yes Review of Systems Positive: Chest Pain Positive: Shortness Of Breath, Cough Positive: Abdominal Pain, Nausea. Negative: Vomiting, Diarrhea Positive: Other - fall 4 years ago; negative arm pain, jaw pain, calf swelling Neurological: Other - dizziness, weakness, headache All Other Systems Reviewed And Are Negative: Yes Physical Exam - Summary Physical Exam Summary: General: Well appearing, no pain distress Skin: Warm, Skin Color Reflects Adequate Perfusion, Dry Eyes: EOMI, JOHNNIE ENT: Pharynx normal, TMs normal Neck: Supple, nontender Respiratory: CTA, breath sounds present, no rhonchi, no wheezes, no rales Cardiovascular: RRR, no murmur, no rub, no gallop Abdomen: Soft, umbilical tenderness, Non-distended, no guarding, no rebound Bowel: Present Musculoskeletal: TIFFANIE, No edema Neuro: Sensory/motor intact, A&Ox3, CN intact 2-12 Psych: Affect/mood appropriate Triage Information Reviewed: Yes Vital Signs On Initial Exam: Initial Vitals Temp Pulse Resp BP Pulse Ox 98.2 F 66 16 160/67 96 01/23/17 13:42 01/23/17 13:42 01/23/17 13:42 01/23/17 13:42 01/23/17 13:42 Vital Signs Reviewed: Yes - [place] Coma Scale Coma Scale Total: 15 Diagnostics - Vital Signs Vital Signs Temp Pulse Resp BP Pulse Ox 01/23/17 14:23 96 01/23/17 13:42 98.2 F 66 16 160/67 96 - Laboratory Result Diagrams: 01/23/17 14:26 01/23/17 14:26 Lab Statement: Any lab studies that have been ordered have been reviewed, and results considered in the medical decision making process. - Radiology CXR Radiology Interpretation Completed By: Radiologist - Stigmata of obstructive lung disease. No acute pulmonary or cardiac process evident. ED physician has reviewed this radiology report and agrees. - CT CTA A/P CT Interpretation Completed By: Radiologist - 1. Fusiform aneurysm of the infrarenal abdominal aorta measuring 2.9 cm, unchanged. 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 2. 1.8 cm right renal cyst. 3. Multiple compression deformities, unchanged. ED physician has reviewed this radiology report and agrees. - EKG 1351 Cardiac Rate: NL - BPM 62 EKG Rhythm: Sinus Rhythm EKG Interpretation: LVH Re-Evaluation - Re-Evaluation First Eval Re-Evaluation Time: 17:15 Change: Improved Chest Pain Course/Dx - Diagnoses Provider Diagnoses: COPD exacerbation Discharge - Discharge Plan Condition: Stable Disposition: HOME Patient Education Materials: COPD (Chronic Obstructive Pulmonary Disease) (ED) Referrals: Dimas GAMAPHaylee [Primary Care Provider] - Additional Instructions: RETURN TO THE EMERGENCY DEPARTMENT FOR CHANGING OR WORSENING SYMPTOMS. The documentation as recorded by the Nicholas moore Alfonso accurately reflects the service I personally performed and the decisions made by Gaudencio vazquez Justine, MD.
== END 2017-01-23 17:58 | disposition home or self-care (01) ==
LOC: ED 13:37
DX: J44.1 Chronic obstructive pulmonary disease with (acute) exacerbation (principal); I71.4 Abdominal aortic aneurysm, without rupture; I72.3 Aneurysm of iliac artery; N28.1 Cyst of kidney, acquired; R07.89 Other chest pain; R05 Cough; R11.0 Nausea; R10.9 Unspecified abdominal pain; R42 Dizziness and giddiness; R51 Headache; R53.1 Weakness; E11.9 Type 2 diabetes mellitus without complications; E07.9 Disorder of thyroid, unspecified; I20.9 Angina pectoris, unspecified; I10 Essential (primary) hypertension; I21.9 Acute myocardial infarction, unspecified; E78.00 Pure hypercholesterolemia, unspecified; K21.9 Gastro-esophageal reflux disease without esophagitis; F41.0 Panic disorder [episodic paroxysmal anxiety]; F32.9 Major depressive disorder, single episode, unspecified; F17.210 Nicotine dependence, cigarettes, uncomplicated
CPT/HCPCS: 36415; 71010; 74174; 80053; 83605; 84484; 85025; 93005; 94640; 96360; 96361; 99282; A9270-GY; J7512; Q9967

== ENCOUNTER 2017-04-24 18:41 | Emergency (ER) | payer MEDICARE, MEDICAID ==
[2017-04-24 18:59] VITALS: BP 155/61
--- NOTE | 2017-04-24 20:14 | RAD ---
Indication: Fall, head trauma. CT of the brain was performed without IV contrast. Comparison is made with previous exam dated May 17, 2016. Ventricular structures are midline. No midline shift is noted. The extra-axial spaces are unremarkable. There is no evidence of intracranial mass or hemorrhage. Periventricular lucency consistent with chronic ischemic White matter change is noted. This is unchanged from prior exam. Mastoid air cells and paranasal sinuses are otherwise unremarkable. IMPRESSION: No intracranial mass or hemorrhage is noted. No changes noted since May 17, 2016.
--- NOTE | 2017-04-24 20:15 | RAD ---
Indication: Neck injury and headaches. CT of the cervical spine was obtained in the axial plane. Sagittal and coronal reconstructed images were obtained. Comparison is made with previous exam dated May 17, 2016. Degenerative changes of the atlantoaxial joint is noted. No fracture is noted. The skull base demonstrates no evidence of fracture. Mastoid air cells are well aerated. The C1 ring is intact. No fracture is identified. The remainder of the vertebral bodies appear normal in height. No definite compression fracture is noted. Degenerative disc disease at C2-C3, C3-C4, C5-C6 and C7-T1 is noted. This is unchanged from previous exam. No facet arthropathy is noted. No fracture is identified. Spinal canal appears to be intact. IMPRESSION: No fracture of the cervical spine is noted. Degenerative disc disease at multiple levels.
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
== END 2017-04-24 20:41 | disposition home or self-care (01) ==
LOC: UCEAST 18:41
DX: S09.90XA Unspecified injury of head, initial encounter (principal); W19.XXXA Unspecified fall, initial encounter; Y92.9 Unspecified place or not applicable; M50.33 Other cervical disc degeneration, cervicothoracic region; F17.210 Nicotine dependence, cigarettes, uncomplicated
CPT/HCPCS: 70450; 72125; 99211; G0463

== ENCOUNTER 2017-06-14 18:17 | Emergency (ER) | payer MEDICARE, MEDICAID ==
[2017-06-14] MEDS ORDERED: Morphine INJ* 4 MG/ML 1 ML SYRINGE (NEW SYRINGE VERSION) IV ONE (21:24)
[2017-06-14] MEDS ORDERED: Ketorolac INJ* 30 MG/ML 1 ML VIAL IV PUSH ONE (21:33)
[2017-06-14 21:46] LABS: ABS Basophils 0.1 10^3/ul (0-0.2); ABS Eosinophils 0.4 10^3/ul (0-0.6); ABS Lymphocytes 2.5 10^3/ul (1.0-4.8); ABS Monocytes 0.8 10^3/ul (0-0.8); ABS Neutrophils 6.2 10^3/ul (1.5-7.7); ABS Nucleated RBC 0 10^3/ul; Eosinophil % 3.7 % (0-6); Hematocrit 37 % (35-47); Hemoglobin 12.1 g/dl (12.0-16.0); Lymphocyte % 25.5 % (25-47); Mean Corpuscular HGB Conc 33 g/dl (31-36); Mean Corpuscular Hemoglobin 30 pg (27-31); Mean Corpuscular Volume 91 fL (80-97); Mean Platelet Volume 8 um3 (7.4-10.4); Nucleated Red Blood Cells % 0; Platelet Count 344 10^3/ul (150-450); Red Blood Count 4.03 10^6/ul (4.0-5.4); Red Cell Distribution Width 14 % (10.5-15)
[2017-06-14 22:08] LABS: EGFR Non-African American 66.8 (>60)
[2017-06-14 23:33] LABS: Urine Appearance Cloudy; Urine Blood Negative (Negative); Urine Color Yellow; Urine Ketones Negative (Negative); Urine Protein Negative (Negative); Urine Specific Gravity 1.019 (1.010-1.030); Urine Urobilinogen Positive (Negative)
[2017-06-14 23:48] VITALS: BP 141/88
--- NOTE | 2017-06-15 07:28 | RAD ---
Indication: Pain after fall Comparison: None. Technique: AP and lateral views sacrum and coccyx. Report: The visualized bones of the sacrum and coccyx are well-corticated and properly aligned. The joint spaces are adequately maintained. There is no radiographically apparent acute fracture or dislocation. IMPRESSION: Normal radiograph of the sacrum and coccyx. If the patient's symptoms persist, follow-up imaging is recommended.
--- NOTE | 2017-06-15 07:31 | RAD ---
INDICATION: Head trauma after a fall COMPARISON: Most recent comparison CT of the brain is dated April 24, 2018 TECHNIQUE: Contiguous axial sections of the brain were obtained from the skull base to the vertex without contrast. FINDINGS: The ventricles, cisterns and sulci are within normal limits. There is scattered subcortical and periventricular white matter hypoattenuation similar in appearance to the previous MRI of the brain is most compatible with chronic microvascular disease. Otherwise the cesar-white matter differentiation is adequately maintained and there is no sulcal effacement. No significant focal abnormality or mass effect is present. There is no evidence for intracranial hemorrhage. No significant focal osseous abnormality is present. The visualized portion of the paranasal sinuses appear clear. The mastoid air cells are well aerated bilaterally. IMPRESSION: Stable microvascular disease without CT evidence of acute intracranial trauma.
--- NOTE | 2017-06-15 15:01 | ED ---
Trace Bernal Sixian, scribed for Mitchel Hernandez MD on 06/14/17 at 2129 . Complex/Multi-Sys Presentation - HPI Summary HPI Summary: Patient is a 77 year old F presenting to ED with a chief complaint of head pain s/p a fall since 1800 today. Pt states that she went to answer her phone and fell and hit the top of head. Pt denies being on any anticoagulants. Pt describes painas worsening in the last few days and she has fallen more often. The patient rates the pain 8/10 in severity. Symptoms aggravated and alleviated by nothing. Patient reports nausea, pain on her head and buttocks. Patient denies dizziness. Pt has fallen three times overnight. Pt statesshe has been falling chroically for several years with multiple specialist evaluations. Pt states no clear etiology of symptoms. - History Of Current Complaint Chief Complaint: EDHeadInjury Time Seen by Provider: 06/14/17 21:11 Hx Obtained From: Patient Onset/Duration: Sudden Onset, Lasting Hours, Still Present Timing: Constant, Hours Aggravating Factor(s): nothing Alleviating Factor(s): nothing Associated Signs And Symptoms: Positive: Other - Patient reports nausea, pain on her head and buttocks. Patient denies dizziness. - Allergies/Home Medications Allergies/Adverse Reactions: Allergies Allergy/AdvReac Type Severity Reaction Status Date / Time No Known Allergies Allergy Verified 06/14/17 18:24 PMH/Surg Hx/FS Hx/Imm Hx Endocrine/Hematology History: Reports: Hx Diabetes - hypoglycemic, Hx Thyroid Disease Denies: Hx Systemic Lupus Erythematosus Cardiovascular History: Reports: Hx Angina, Hx Hypercholesterolemia, Hx Hypertension, Hx Myocardial Infarction, Hx Rheumatic Fever - A CHILD, Other Cardiovascular Problems/Disorders - ANGINA Denies: Hx Congestive Heart Failure, Hx Pacemaker/ICD Respiratory History: Reports: Hx Seasonal Allergies, Other Respiratory Problems/ Disorders - SMOKER, ON OXYGEN AT 3 LITERS AT NIGHT Denies: Hx Asthma, Hx Chronic Obstructive Pulmonary Disease (COPD) GI History: Reports: Hx Gastroesophageal Reflux Disease, Hx Hiatal Hernia, Other GI Disorders - hiatal hernia Denies: Hx Ulcer History: Reports: Hx Renal Disease - hx of cyst removal, Other Problems/ Disorders - cysts removed from kidney Denies: Hx Dialysis Musculoskeletal History: Reports: Hx Arthritis - BILATERAL KNEES, BACK, BILATERAL HANDS, Hx Back Problems Denies: Hx Rheumatoid Arthritis Sensory History: Reports: Hx Contacts or Glasses Denies: Hx Hearing Aid Opthamlomology History: Reports: Hx Contacts or Glasses Neurological History: Reports: Hx Headaches, Hx Migraine Denies: Hx Dementia, Hx Seizures Psychiatric History: Reports: Hx Anxiety, Hx Depression, Hx Panic Disorder Denies: Hx Substance Abuse - Cancer History Cancer Type, Location and Year: Reports tumor in pelvis , melanoma, Hx Chemotherapy: No Hx Radiation Therapy: No Hx Palliative Cancer Treatment: No - Surgical History Surgery Procedure, Year, and Place: 1983 RIGHT KIDNEY SURGERY TO REMOVE CYST IN [place], 1984 OPEN CHO[place]STECTOMY, [place] , 1985 BACK SURGERY, [place], 1974 HYSTERECTOMY, [facility] [place] 2005 , MELANOMA FROM LEFT ARM, 2009 AND 2013,NOSE SURGERY TO REMOVE LESION, [place], PARTIAL THYROID REMOVAL, LEFT SIDE T&A, GLAND REMOVAL FROM THROAT, Hx Anesthesia Reactions: No - Immunization History Date of Tetanus Vaccine: Unk Date of Influenza Vaccine: 01/09/13 Infectious Disease History: No Infectious Disease History: Reports: Hx Shingles - x2 Denies: Hx Hepatitis, Hx Human Immunodeficiency Virus (HIV), History Other Infectious Disease, Traveled Outside the in Last 30 Days - Family History Known Family History: Positive: Unknown, Cardiac Disease - CHF, Other - CANCER - Social History Alcohol Use: None Substance Use Type: Reports: None Smoking Status (MU): Heavy Every Day Tobacco Smoker Type: Cigarettes Amount Used/How Often: 1/2 PPD Length of Time of Smoking/Using Tobacco: 60 years Have You Smoked in the Last Year: Yes Review of Systems Positive: Nausea Positive: Other - pain in head and buttocks Neurological: Negative - dizziness All Other Systems Reviewed And Are Negative: Yes Physical Exam - Summary Physical Exam Summary: Appearance: Well-appearing, no distress, Well-nourished Skin: Warm, color reflects adequate perfusion Head: . Tenderness to the parietal area. No swelling no hematoma no ecchymosis Eyes: EOMI, PERRLA ENT: Normal inspection Neck: Supple, no nodes, no JVD. Respiratory: Lungs clear, Normal breath sounds, no respiratory distress Cardio: RRR, No murmur, pulses normal, brisk capillary refill Abdomen: soft, nontender, no guarding, no rebound Bowel sounds: present Musculoskeletal: Strength Intact/ ROM intact. No calf tenderness. No edema. Tenderness to left buttock; no swelling; no ecchymosis Neuro: Alert, muscle tone normal, facial symmetry, speech normal, sensory/motor intact; CN intact II-XII Psychological: Normal Triage Information Reviewed: Yes Vital Signs On Initial Exam: Initial Vitals Temp Pulse Resp BP Pulse Ox 98.3 F 69 21 148/68 96 06/14/17 18:24 06/14/17 18:24 06/14/17 18:24 06/14/17 18:24 06/14/17 18:24 Vital Signs Reviewed: Yes Diagnostics - Vital Signs Vital Signs Temp Pulse Resp BP Pulse Ox 06/14/17 21:00 70 11 138/104 95 06/14/17 20:58 77 93 06/14/17 20:56 133/60 06/14/17 18:24 98.3 F 69 21 148/68 96 - Laboratory Lab Results: Lab Results 06/14/17 06/14/17 06/14/17 Range/Units 21:37 21:37 23:00 WBC 10.0 (3.5-10.8) 10^3/ul RBC 4.03 (4.0-5.4) 10^6/ul Hgb 12.1 (12.0-16.0) g/dl Hct 37 (35-47) % MCV 91 (80-97) fL MCH 30 (27-31) pg MCHC 33 (31-36) g/dl RDW 14 (10.5-15) % Plt Count 344 (150-450) 10^3/ul MPV 8 (7.4-10.4) um3 Neut % (Auto) 61.8 (38-83) % Lymph % (Auto) 25.5 (25-47) % [place] % (Auto) 7.8 H (0-7) % Eos % (Auto) 3.7 (0-6) % Baso % (Auto) 1.2 (0-2) % Absolute Neuts (auto) 6.2 (1.5-7.7) 10^3/ul Absolute Lymphs (auto) 2.5 (1.0-4.8) 10^3/ul Absolute Monos (auto) 0.8 (0-0.8) 10^3/ul Absolute Eos (auto) 0.4 (0-0.6) 10^3/ul Absolute Basos (auto) 0.1 (0-0.2) 10^3/ul Absolute Nucleated RBC 0 10^3/ul Nucleated RBC % 0 Sodium 138 (133-145) mmol/L Potassium 3.3 L (3.5-5.0) mmol/L Chloride 104 (101-111) mmol/L Carbon Dioxide 28 (22-32) mmol/L Anion Gap 6 (2-11) mmol/L BUN 14 (6-24) mg/dL Creatinine 0.83 (0.51-0.95) mg/dL Est GFR ( Amer) 86.0 (>60) Est GFR (Non-Af Amer) 66.8 (>60) BUN/Creatinine Ratio 16.9 (8-20) Glucose 102 H (70-100) mg/dL Calcium 9.5 (8.6-10.3) mg/dL Total Bilirubin 0.30 (0.2-1.0) mg/dL AST 13 (13-39) U/L ALT 8 (7-52) U/L Alkaline Phosphatase 41 (34-104) U/L Total Protein 6.7 (6.4-8.9) g/dL Albumin 3.7 (3.2-5.2) g/dL Globulin 3.0 (2-4) g/dL Albumin/Globulin Ratio 1.2 (1-3) Urine Color Yellow Urine Appearance Cloudy Urine pH 6.0 (5-9) Ur Specific Reese 1.019 (1.010-1.030) Urine Protein Negative (Negative) Urine Ketones Negative (Negative) Urine Blood Negative (Negative) Urine Nitrate Negative (Negative) Urine Bilirubin Negative (Negative) Urine Urobilinogen Positive A (Negative) Ur Leukocyte Esterase 3+ A (Negative) Urine WBC (Auto) 2+(11-20/hpf) A (Absent) Urine RBC (Auto) Absent (Absent) Ur Squamous Epith Cells Present A (Absent) Calcium Oxalate Crystal Present A (Absent) Urine Bacteria Absent (Absent) Urine Glucose Negative (Negative) Result Diagrams: 06/14/17 21:37 06/14/17 21:37 Lab Statement: Any lab studies that have been ordered have been reviewed, and results considered in the medical decision making process. - Radiology XR Radiology Interpretation Completed By: ED Physician - Sacrum and coccyx XR reveals no acute fracture or dislocation. ED physician has reviewed this radiology report. - CT head CT Interpretation Completed By: Radiologist - Head CT reveals no intra or extra axial hemorrhage or collection. No mass lesion or midline shift. There is stable mild cortical atrophy. The ventricles are not enlarged and are midline in position. Normal cesar white matter differentiation. Areas of low attenuation in the periventricular white matter are again notes and compatible with chronic microvascular ischemic changes. The calvarium is intact. The visualized paranasal sinuses and mastoid air cells are clear. ED physician has reviewed this radiology report. Re-Evaluation - Re-Evaluation First Eval Change: Improved - pt symptomaticvally improved with po analgesia. Pt repeat CN exam intact II-XII; pt with no acute neuro deficits. Plan for symptomatic tx with PCP/Neuro f/u. Complex Multi-Symp Course/Dx - Diagnoses Differential Diagnoses/HQI/PQRI: CVA, Metabolic Abnormality, Urinary Tract Infection, Other - vascular insufficiency, neuropathy, weakness Provider Diagnoses: Falls frequently Discharge - Discharge Plan Condition: Improved Disposition: HOME Patient Education Materials: Fall Prevention for Older Adults (ED) Referrals: Helene Rizo [Primary Care Provider] - 2 Days Additional Instructions: RETURN TO THE EMERGENCY DEPARTMENT FOR CHANGING OR WORSENING SYMPTOMS. The documentation as recorded by the Trace moore Sixian accurately reflects the service I personally performed and the decisions made by Mary vazquez Omari A, MD.
== END 2017-06-14 23:52 | disposition home or self-care (01) ==
LOC: ED 18:17
DX: R51 Headache (principal); R29.6 Repeated falls; F17.210 Nicotine dependence, cigarettes, uncomplicated; K21.9 Gastro-esophageal reflux disease without esophagitis; E11.649 Type 2 diabetes mellitus with hypoglycemia without coma; E78.00 Pure hypercholesterolemia, unspecified; I10 Essential (primary) hypertension; I25.2 Old myocardial infarction; W19.XXXA Unspecified fall, initial encounter; Y92.9 Unspecified place or not applicable
CPT/HCPCS: 36415; 70450; 72220; 80053; 81003; 81015; 85025; 87086; 96374; 96375; 99283; J1885

== ENCOUNTER 2017-06-25 13:21 | Inpatient (IN) | payer MEDICARE, MEDICAID ==
--- NOTE | 2017-06-25 15:10 | RAD ---
HISTORY: Falls, pain, hematoma, unsteady gait COMPARISONS: June 18, 2017 VIEWS: 3, Frontal view of the pelvis with frontal and frog-leg views of the left hip FINDINGS: BONE DENSITY: There is diffuse osteopenia. BONES: There is no displaced fracture. JOINTS: There is no arthropathy. ALIGNMENT: There is no dislocation. SOFT TISSUES: Unremarkable. OTHER FINDINGS: Degenerative changes are noted of the lower lumbar spine. IMPRESSION: NO RADIOGRAPHIC EVIDENCE FOR HIP FRACTURE. X-RAYS MAY BE NEGATIVE WITH NONDISPLACED HIP FRACTURE, IF THERE IS PERSISTENT CLINICAL CONCERN, RECOMMEND CONSIDERATION OF MRI. IN THE SETTING OF CONTRAINDICATION TO MRI OR LIMITATION IN EMERGENT ACCESS TO MRI, CT WOULD BE SUGGESTED.
--- NOTE | 2017-06-25 15:11 | RAD ---
HISTORY: Fall, left shoulder pain COMPARISONS: March 07, 2011 VIEWS: 4, Frontal internal rotation, external rotation, outlet, and axillary views of the left shoulder FINDINGS: BONE DENSITY: There is diffuse osteopenia. BONES: There is no displaced fracture. JOINTS: There is moderate osteoarthritis of the a.c. and glenohumeral joints. ALIGNMENT: There is no dislocation. SOFT TISSUES: Unremarkable. OTHER FINDINGS: None. IMPRESSION: 1. OSTEOPENIA. 2. OSTEOARTHRITIS. 3. NO ACUTE OSSEOUS INJURY. IF SYMPTOMS PERSIST, RECOMMEND REPEAT IMAGING
--- NOTE | 2017-06-25 15:14 | RAD ---
HISTORY: Fall, pain, unsteady gait COMPARISONS: MRI dated December 18, 2016 VIEWS: 4, Frontal and lateral views of the thoracic spine. FINDINGS: ALIGNMENT: There is a mild scoliotic curvature of the spine. VERTEBRAL BODIES: There is diffuse osteopenia. Again noted is a chronic compression deformity of T11. There is mild loss of vertebral body height at T10 when compared to December 18, 2016. There is no significant osseous retropulsion. There is mild anterolateral marginal osteophyte formation. JOINTS: Unremarkable. INTERVERTEBRAL DISCS: There is diffuse loss of intervertebral disc height. SOFT TISSUE: Unremarkable OTHER: The visualized lungs are clear. IMPRESSION: 1. OSTEOPENIA. 2. MILD LOSS OF VERTEBRAL BODY HEIGHT AT T10 COMPARED TO 2016 CONSISTENT WITH AN AGE-INDETERMINATE COMPRESSION FRACTURE. THERE IS NO OSSEOUS RETROPULSION. 3. STABLE COMPRESSION FRACTURE OF T11. 4. SCOLIOSIS. 5. DEGENERATIVE DISC DISEASE
--- NOTE | 2017-06-25 15:14 | RAD ---
INDICATION: Fall. Chest pain COMPARISON: Chest x-ray January 23, 2017 TECHNIQUE: PA and lateral dual-energy views were obtained. FINDINGS: Bones/Soft Tissues: There are no acute bony findings. There is osteopenia with compression deformities at the thoracolumbar junction associated refer to thoracic spine report) Cardiomediastinal: The cardiomediastinal silhouette is mildly prominent. Lungs: There are no infiltrates. Pleura: There are no pleural effusions. Other: None IMPRESSION: NO ACTIVE CARDIOPULMONARY DISEASE. THORACOLUMBAR COMPRESSION DEFORMITIES.
--- NOTE | 2017-06-25 15:19 | RAD ---
INDICATION: Frequent falls COMPARISON: CT brain June 14, 2017 TECHNIQUE: Noncontrast axial source images were acquired from the skull base to the vertex. FINDINGS: Ventricles/sulci: There is mild age-related cortical atrophy with compensatory dilatation of the CSF spaces. Brain parenchyma: There is mild periventricular and subcortical white matter change compatible with chronic ischemia. Intracranial hemorrhage:None. Extra-axial spaces: There are no abnormal extra axial fluid collections or evidence of extra-axial mass. Calvarium: There is no calvarial fracture or other calvarial abnormality. Scalp: There is no evidence of scalp or extracalvarial soft tissue abnormality. Paranasal sinuses/mastoid: The paranasal sinuses and mastoid air cells are clear. Other: None. IMPRESSION: NO ACUTE INTRACRANIAL FINDINGS. MILD AGE-RELATED CORTICAL ATROPHY WITH CHRONIC MICROVASCULAR ISCHEMIC CHANGE.
[2017-06-25 16:14] LABS: ABS Basophils 0.1 10^3/ul (0-0.2); ABS Eosinophils 0.3 10^3/ul (0-0.6); ABS Lymphocytes 2.4 10^3/ul (1.0-4.8); ABS Monocytes 0.9 10^3/ul (0-0.8); ABS Neutrophils 7.2 10^3/ul (1.5-7.7); ABS Nucleated RBC 0 10^3/ul; Eosinophil % 3.2 % (0-6); Hematocrit 36 % (35-47); Hemoglobin 12.4 g/dl (12.0-16.0); Lymphocyte % 21.9 % (25-47); Mean Corpuscular HGB Conc 34 g/dl (31-36); Mean Corpuscular Hemoglobin 31 pg (27-31); Mean Corpuscular Volume 91 fL (80-97); Mean Platelet Volume 7.6 um3 (7.4-10.4); Nucleated Red Blood Cells % 0.1; Platelet Count 494 10^3/ul (150-450); Red Cell Distribution Width 15 % (10.5-15); White Blood Count 10.9 10^3/ul (3.5-10.8)
[2017-06-25 16:22] LABS: INR 1.02 (0.77-1.02)
[2017-06-25] MEDS ORDERED: NS 0.9% 1000 ML* 1,000 ML IV ONE (16:59)
[2017-06-25] MEDS ORDERED: Iodixanol* (CONTRAST) 320 MG/ML 100 ML SDV IV ONE (17:05)
[2017-06-25] MEDS ORDERED: oxyCODONE/Acetamin 5/325 MG* TAB PO ONE (17:06)
[2017-06-25 17:10] LABS: Urine Appearance Cloudy; Urine Blood Negative (Negative); Urine Color Yellow; Urine Ketones Negative (Negative); Urine Protein Negative (Negative); Urine Specific Gravity 1.012 (1.010-1.030); Urine Urobilinogen Positive (Negative)
--- NOTE | 2017-06-25 17:52 | RAD ---
CLINICAL HISTORY: " Right lower quadrant pain with associated fall". Relevant surgical history includes cholecystectomy, hysterectomy and "back surgery" COMPARISON: CT abdomen pelvis dated December 16, 2015 TECHNIQUE: Contrast enhanced CT examination of the abdomen and pelvis from the lung bases through the initial tuberosities. The patient received 85 mL Visipaque 320 intravenously prior to imaging. FINDINGS: VISUALIZED LUNG BASES: The visualized lung bases are grossly clear. There is no pleural effusion. ABDOMEN AND PELVIS: The liver, spleen, pancreas and adrenal glands are grossly normal in appearance. The gallbladder is surgically absent with clips in the gallbladder fossa. The kidneys are normal in appearance without focal mass, calcification or signs of hydronephrosis. There is a fluid density cyst of the right kidney. Evaluation of the gastrointestinal tract is limited without administration of oral contrast. The small and large bowel are not distended. There is surgical material in the right paracolic gutter. The appendix is not discretely visualized but there are no focal inflammatory changes in the right lower quadrant characteristic of acute appendicitis. There is no gross retroperitoneal or mesenteric lymphadenopathy. The uterus is surgically absent. There is an infrarenal abdominal aortic aneurysm measuring 3 cm in diameter. Calcified atherosclerosis in the aorta extends into the iliac arteries. 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 Aneurysmal dilatation of the left common iliac artery just above the left iliac bifurcation measures 1.1 cm in diameter. In the left gluteal musculature there is a heterogeneous low-attenuation collection measuring 3.7 x 5 cm in the axial plane and 4.8 cm in the cephalocaudal projection (axial image 81 and sagittal image 84). Multilevel degenerative changes of the lower thoracic and lumbar spine includes loss of intervertebral disc height there are chronic compression deformities of L1 and T11 similar in appearance to the previous CT examination. No acute fractures are identified. IMPRESSION: 1. With a reported history of trauma, CT findings are most compatible with an age-indeterminate hematoma in the left gluteal musculature. Please correlate to physical examination. 2. Again seen is a 3 cm infrarenal abdominal aortic aneurysm not significantly changed since he January 23, 2017 CT examination. There are also right greater than left aneurysms of the bilateral common iliac arteries also similar to prior recent CT imaging. 3. Chronic, degenerative and iatrogenic findings as described above.
[2017-06-25] MEDS ORDERED: Potassium Chlor TAB* 20 MEQ TAB.ER PO ONE (17:54)
[2017-06-25] MEDS ORDERED: Ondansetron INJ* 2 MG/ML VIAL IV PRN (17:54)
[2017-06-25] MEDS ORDERED: Acetaminophen TAB* 325 MG PO PRN (17:54)
[2017-06-25] MEDS ORDERED: cefTRIAXone(*) 1 GM in NS 0.9% 50 ML* 50 ML IVPB SCH (17:56)
[2017-06-25] MEDS ORDERED: Dextrose 50% Syringe 50 ML* 25 GM/50 ML SYRINGE IV PUSH PRN (17:59)
[2017-06-25] MEDS ORDERED: Albuterol 2.5 MG/3 ML NEB.SOL* (0.083%) INH PRN (17:59)
[2017-06-25] MEDS ORDERED: NS 0.9% 1000 ML* 1,000 ML IV SCH (18:30)
--- NOTE | 2017-06-25 19:06 | RAD ---
INDICATION: Chronic neck and back pain COMPARISON: CT cervical spine April 24, 2017, thoracic spine MRI dated December 17, [address] of the lumbar spine August 17, 2016 TECHNIQUE: Axial source images of the cervical, thoracic and lumbar spine were acquired with coronal and sagittal reformatting. FINDINGS: Cervical spine: There is mild straightening of the normal cervical lordosis. The vertebral bodies and facet joints are appropriately aligned. Multilevel degenerative changes include loss of intervertebral disc height. There is no fracture, displacement or otherwise. There is no prevertebral soft tissue swelling. There is atherosclerotic calcification at the bilateral carotid bulbs. Thoracic spine: Multilevel degenerative changes include loss of intervertebral disc height. There are chronic compression deformities of T11 and L1 similar to the December 18, 2016 MRI of the thoracic spine. There is no acute fracture identified. The visualized lungs exhibit severe centrilobular emphysematous changes with interlobular and parenchymal thickening at the bilateral lung bases. Lumbar spine: Degenerative changes include loss of intervertebral disc height and chronic compression deformities of T11 and L1. There is no definite acute fracture or dislocation. There is coarse calcification of the abdominal aorta as well as a partially visualized lower abdominal aortic aneurysm. IMPRESSION: DEGENERATIVE CHANGES OF THE SPINE DESCRIBED ABOVE WITHOUT IDENTIFICATION OF ACUTE FRACTURE.
--- NOTE | 2017-06-25 20:27 | RAD ---
INDICATION: Bilateral leg weakness COMPARISON: Similar exam December 18, 2016 TECHNIQUE: Coronal roustabout crew, sagittal T1, inversion recovery, T2, and axial T1, T2 images were acquired of the thoracic spine. FINDINGS: Image quality is limited by motion artifact. The spinal cord terminates at the L1 level. There are no intrinsic abnormalities of the visualized cord. The vertebral bodies are appropriately aligned. Again seen are chronic compression deformities of T11 and L1 unchanged since the previous T-spine MRI. On the sagittal T1-weighted images there is loss of marrow signal at the superior endplate of the T10 vertebral body. On the fluid sensitive inversion recovery images there is increased signal at this same location. This is new since the previous MRI of the thoracic spine dated December 18, 2016. On the sagittal view images the intervertebral discs maintain appropriate T2 signal and adequate maintenance of height. Axial view images: Less otherwise specified below there is no significant central canal stenosis or neural foraminal stenosis. There is no pathologic appearing central canal or neural foraminal stenosis at any level. IMPRESSION: Fluid signal at the superior endplate of the T10 vertebral body, not seen on the 1916 MRI of the thoracic spine, could be an acute to subacute compression fracture. Please correlate to focality of the patient's back pain.
--- NOTE | 2017-06-25 20:33 | RAD ---
INDICATION: Back pain. COMPARISON: CT abdomen pelvis dated January 23, 2017 that shows compression deformities of T11 and L1. TECHNIQUE: Coronal hemmer chainstitch, sagittal T1, inversion recovery, T2, and axial T1, T2 images were acquired. FINDINGS: Image quality is severely degraded by motion artifact. The spinal cord terminates at the L1 level. There are no intrinsic abnormalities of the visualized cord. The lower thoracic and lumbar vertebrae are normally aligned. Again seen are compression deformities of T11 and L1. On the sagittal view images the intervertebral discs maintain appropriate T2 signal and adequate maintenance of height. Axial view images: Less otherwise specified below there is no significant central canal stenosis or neural foraminal stenosis. T12-L1:There is no significant central canal or neural foraminal stenoses. L1-L2: Broad-based disc protrusion exacerbated by mild posterior displacement of the fractured L1 vertebral body of the mild degree of central canal stenosis and mild bilateral neural foraminal stenosis. L2-L3: Broad-based disc protrusion combining with facet arthropathy and thickening ligamentum flavum causes mild bilateral neural foraminal stenosis. L3-L4: Broad-based disc protrusion eccentric towards the right combines with facet arthropathy and thickening of the ligamentum flavum to cause mild central canal stenosis, moderate right and mild to moderate left neural foraminal stenosis. L4-L5: Broad-based disc protrusion extending to the bilateral neural foramina and beyond to the left extraforaminal space, as is mild right and moderate left neural foraminal stenosis. L5-S1: There is no significant central canal or neural foraminal stenoses. IMPRESSION: Multilevel degenerative disc disease as described above and chronic compression fractures of T11 and L1.
[2017-06-25] MEDS: Mometasone/Formoter 200/5 MDI INH SCH (20:50)
[2017-06-25] MEDS ORDERED: Amitriptyline TAB* 25 MG PO SCH (21:00)
[2017-06-25] MEDS: Gabapentin CAP(*) 100 MG PO SCH (21:28)
[2017-06-25] MEDS: traZODone TAB* 100 MG PO SCH (21:29)
[2017-06-25] MEDS: oxyCODONE SR TAB(*) 10 MG TAB.SR PO SCH (21:30)
[2017-06-25] MEDS: cefTRIAXone 1000 MG SYRINGE IVPB Q24H (in NaCl) IVPB SCH ×2 (21:35)
--- NOTE | 2017-06-26 00:25 | CONS ---
CONSULTATION REPORT: DATE OF CONSULT: 06/25/17 HISTORY OF PRESENT ILLNESS: The patient is a very pleasant 77-year-old female with a history of dementia, diabetes, thyroid disease, coronary artery disease, hypercholesterolemia, hypertension, status post [place], rheumatic fever as a child, who is a smoker, who was brought to the emergency room because of complaints of generalized pain and weakness. She also complains of right lower quadrant pain that started this morning. The patient has history of multiple falls without loss of consciousness. The patient has also complaints of pain in the lower thoracic rib cage on the right and left and some occasionally to the right lower extremity. The patient reports that she is doing quite well. She denies any neck pain or back pain. She denies any loss of consciousness. The patient denies any weakness or numbness or tingling in the lower extremities. She does have baseline urinary incontinence, history of urinary incontinence, but denies GI incontinence. The patient is ambulating with a walker. The patient lives with her son and is accompanied today by her daughter, who contributes significantly into her history. PAST MEDICAL HISTORY: As above, history of diabetes, thyroid disease, coronary artery disease, hypercholesterolemia, hypertension, status post IL, GERD, hiatal hernia, renal disease, arthritis, migraine headaches, anxiety, depression , panic disorder. The patient reports that she has history of tumors in the pelvis and melanoma. PAST SURGICAL HISTORY: Multiple surgical interventions including right kidney surgery; open cholecystectomy; back surgery; hysterectomy; melanoma, left thumb ; nose surgery; thyroidectomy; T and A, gland removal. MEDICATIONS: The patient is takin. Amitriptyline. 2. Aspirin. 3. Bupropion. 4. Esomeprazole 5. Fluticasone. 6. Gabapentin 7. Olton. 8. Ipratropium. 9. Levothyroxine. 10. Lisinopril. 11. Oxycodone. 12. . 13. Tiotropium. 14. Venlafaxine. 15. Amlodipine. ALLERGIES: No known drug allergies. FAMILY HISTORY: Congestive heart failure and cancer. SOCIAL HISTORY: Tobacco: Positive. Alcohol: Negative. Recreational drug use : Negative. The patient lives with her son. She is retired. PHYSICAL EXAM: The patient is not in acute distress. She is resting comfortably in the stretcher. She has no tenderness to palpation of the cervical, thoracic, or lumbar spine. She has full range of motion of the cervical spine. She has some mild tenderness in the lower rib cage bilaterally. She is awake, alert and oriented x3. His pupils are equal and reactive. Cranial nerves II through XII are grossly intact. Motor 4-5/5 in all extremities with the exception of right hip flexion, which is 4-/5 which may be antalgic, as the patient has pain on palpation of her right thigh. Sensory grossly intact to light touch. Deep tendon reflexes are +1 bilaterally. No clonus. No Babinski. Chen's negative. Straight leg raise negative in the seating position. DIAGNOSTIC STUDIES/LAB DATA: The patient had a CT scan of the cervical spine that did not reveal evidence of acute fractures. Had CT scan of the thoracic spine that revealed evidence of old chronic T11 and L1 compression fracture. There is some vacuum phenomenon at approximately T10 level and anterior vertebral body level. The patient had also x-rays of thoracic spine with similar results. ASSESSMENT: This is a pleasant 77-year-old female with complaints of generalized pain and bilateral rib pain and right lower extremity pain. PLAN: The patient at this point is quite comfortable. MRI of the thoracic and lumbar spine did not reveal any evidence of acute canal compromise. There is some suspicion of increased signal in the anterior vertebral body of T10 on the STIR imaging, raising the suspicion of anterior T 10 fracture, although the official reports are not available at this point. Based on her imaging, and the lack of localized tenderness in her spine, we would consider conservative treatment at this point. The patient also had CT scan findings consistent with a left gluteal hematoma. The patient was seen in the emergency room and has been reviewed by Internal Medicine for further workup. No acute neurosurgical intervention at this point.May consider bracing for comfort. Consider evaluation for osteoporosis. Discussed in extent with the patient and her daughter. Thank you for allowing us to participate in the care of this patient. Please do not to hesitate to contact our office in case you have any further questions or concerns regarding the care of this patient. [id number]/[facility] #: [id number] MTDD
--- NOTE | 2017-06-26 00:25 | HP ---
CC: Helene Rizo NP; Dr. Pelayo; Dr. De La Vega * HISTORY AND PHYSICAL: DATE OF ADMISSION: 06/25/17 PRIMARY CARE PROVIDER: Helene Rizo NP ATTENDING PHYSICIAN WHILE IN THE HOSPITAL: Dr. Pierce Taylor * (report dictated by Vince Atwood NP) CHIEF COMPLAINT: 1. Falls. 2. Right-sided pain radiating into back going down to lower leg. HISTORY OF PRESENT ILLNESS: Ms. Nagy is a 77-year-old female patient. She carries a history of diabetes. She also has a history of COPD, chronic back pain, history of hypertension, hypothyroidism, hyperlipidemia, GERD, anxiety, vertigo, CAD, and history of dementia. The patient comes in today and she is a poor historian. Apparently, for the last 3 to 4 weeks, she has had several increasing falls. She states she has not been having any chest pain, shortness of breath. Denies having any passing out like episodes, she says that often times when she is backing up, her right leg will just give out on her, and she says she has been having these episodes for the last month. She came in today because she was having pain just underneath the right rib cage, near the right upper quadrant that radiates into her back and then down her leg, and she has been having this intermittently. She says that the discomfort was becoming unrelenting, so she decided to come into the ER today. She denies having any again loss of consciousness. No chest pain. She says she does not feel any more short of breath than her baseline. She denies having any cold symptoms or any coughing. Denies having any fevers or chills, or any nausea or vomiting. She denies having any trouble with urination or trouble with bowel or bladder incontinence. She was concerned because of the increasing falls. Her family was concerned, they brought her into the emergency department today to be further evaluated. She denies any rashes. She denies having any recent change in medications. She was evaluated here in the ED, it was noted that her troponin was mildly elevated. In addition to this, there was a question of UTI , and because of this, we were asked to evaluate for admission. PAST MEDICAL HISTORY: Significant for: 1. Diabetes. 2. COPD. 3. Chronic back pain. 4. Hypertension. 5. Hyperlipidemia. 6. Hypothyroidism. 7. GERD. 8. Anxiety. 9. Vertigo. 10. CAD. 11. Dementia. PAST SURGICAL HISTORY: The patient has had: 1. TIA. 2. Partial thyroidectomy. 3. Cholecystectomy. 4. Appendectomy. 5. Hysterectomy. MEDICATIONS: Home medications include: 1. Lisinopril 20 mg p.o. daily. 2. Trazodone 100 mg p.o. daily. 3. Effexor 225 mg daily. 4. Spiriva 1 capsule inhaled daily. 5. Aspirin 81 mg daily. 6. Wellbutrin 450 mg p.o. daily. 7. Norvasc 2.5 mg daily. 8. Zantac 300 mg p.o. daily with meals. 9. Advair 1 puff inhaled b.i.d. 10. Nexium 40 mg daily. 11. Neurontin 100 mg p.o. b.i.d. 12. Amitriptyline 25 mg at bedtime. 13. Synthroid 88 mcg daily. 14. Ol[place] 1 tablet every 6 hours. 15. Ipratropium bromide 2 sprays both nares daily. 16. Oxycodone ER 30 mg p.o. q.8 hours. 17. Imitrex 50 mg daily as needed for headache. ALLERGIES TO MEDICATIONS: Include no known drug allergies. FAMILY HISTORY: Mother had a history of CA, unknown origin. Father had a history of CHF. SOCIAL HISTORY: She is still smoking. Smokes about half a pack a day. She does not drink alcohol. Surrogate decision maker is her daughter, Chris. REVIEW OF SYSTEMS: There is no documented fever. She denied having any significant weight change. There was no double vision. Denies having any ear discharge. There is no rhinorrhea. There is no sore throat. No thyroid enlargement. She denies having any chest pain. She denies having any orthopnea. There is no nocturnal dyspnea. The patient denied having any abdominal pain. She denies having any again loss of consciousness. No pruritus , she denied having any skin ulcerations. Review of 14 systems completed, all others negative. PHYSICAL EXAMINATION GENERAL: At this time, Ms. Nagy is a 77-year-old female patient, she is sitting in the ED stretcher. She does not appear to be in any acute distress. She appears to be chronically ill appearing. VITAL SIGNS: Blood pressure 179/57 with a pulse of 70, respirations 18, O2 sat 94%, temperature 97.8. HEENT: Head: Atraumatic, normocephalic. Eyes: EOMs are intact. Sclerae are anicteric and not pale. Throat: Oral mucosa appears to be dry. No oropharyngeal erythema. NECK: Supple. LUNGS: Diminished at the bases. Equal diaphragmatic expansion. HEART: Sounds S1, S2. Regular rate and rhythm. No murmurs, rubs, or gallops. ABDOMEN: Soft, it was flat, nontender. Bowel sounds were present. EXTREMITIES: Pulses were 2+ throughout. She is moving the upper extremities with 5/5 strength. The lower extremities, she has 5/5 strength with plantar and dorsiflexion. She has 5/5 strength at hip extension and flexion on the left leg. Hip flexion and extension on the right leg is about 3/5 strength. Knee extension bilaterally is 5/5 strength and knee flexion is 5/5 strength. NEUROLOGIC: She is awake, alert, and oriented x3. Treater Helper are equal. Her tongue was midline. She had no facial drooping. [id number] intact bilaterally. She again had weakness noted with raising the right lower extremity compared to the left lower extremity and weakness again was noted in the right lower extremity compared to the left lower extremity. Sensation is intact bilaterally. There was no pain with straight leg raise. No other gross focal deficits. SKIN: Grossly intact. DIAGNOSTIC STUDIES/LAB DATA: WBC 10.9, RBC of 4.0, hemoglobin 12.4, hematocrit 36, platelet count 494. The INR was 1.02. Sodium was 139, potassium is 3.1, chloride 101, bicarb of 28, BUN 15, creatinine of 0.79, glucose of 82, lactate 1.7, calcium was 10.7. Total bilirubin 0.6, AST 15, ALT 12, alk phos 53. Troponin 0.04. B12 and folate pending. Her albumin is 3.7. Urine showed 3+ urobilinogen, 3+ leukocyte esterase, 3+ wbc's. Toxicology was negative for alcohol. She had multiple imaging here in the ED starting out with a brain CT, which showed no acute intracranial findings, mild age-related cortical atrophy with chronic microvascular ischemic change. She had an EKG obtained today showing a normal sinus rhythm, rate of 71. No ST elevations or T-wave inversions were noted. I did review it from her previous EKG, it appears to be unchanged from her previous EKGs. She had a hip/pelvis x-ray obtained today, showed no radiographic evidence for hip fracture, as x-ray may be negative for nondisplaced hip fracture. If there is persistent clinical concern, recommend correlation with MRI or CT scan. Shoulder x-ray was obtained today, showed osteopenia, osteoarthritis, no acute osseous injury. Chest x-ray obtained today, showed no active cardiopulmonary disease, thoracolumbar compression deformities. She had a thoracic spine x-ray obtained today and showed osteopenia, mild loss of vertebral body height at T10 compared to November 2016 consistent with age- indeterminate compression fracture. There is no osseous retropulsion. Stable compression fracture at T11, scoliosis, and there is degenerative disk disease. She had abdominal pelvis CT obtained today, which showed CT findings compatible with age-indeterminate hematoma in the left gluteal musculature. Please correlate with physical exam. Again, there is a 3-cm infrarenal abdominal aortic aneurysm not significantly changed since December 2016 exam. 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 Old medical records were reviewed. ASSESSMENT AND PLAN: Ms. Nagy is a 77-year-old female patient with multiple medical problems, coming into the ED today with complaints of increasing falls, weakness. On evaluation today, there was concern as her troponin was mildly elevated, it does appear that she does have urinary tract infection. In addition to this, there was concern for weakness in her right lower extremity. We were asked to evaluate for admission. She will be admitted under observation status for: 1. Increasing falls. Again, on my exam, I do know that she has trouble lifting her right leg straight off the bed compared to her left leg and there is weakness there but she has 5/5 dorsi and plantar flexion in leg and extension at the knees bilaterally too and in flexion. I did touch base with Neurology and Neurosurgery, they will be evaluating her. The plan will be to get a CT of the cervical spine, lumbar spine, and thoracic spine, and MRI of the thoracic and lumbar spine with Neurology input. I am leaving the patient on bedrest until we have the CT of the cervical spine, but again she is not having any pain on palpation of the cervical spine and not complaining of pain there, so I suspect there is no osseous injury, but because of the falls, we need to check this. Place her on bedrest until we have this back and we will continue to follow her. Again, Dr. Pelayo will be evaluating and will get further imaging. If the CT of the cervical spine is cleared, then we will obviously go ahead and we will get PT involved. 2. Right rib pain. Chest x-ray was negative for fracture. I will go ahead and order Lidoderm patch. Continue her medications as prescribed. The pain is going down the lower extremities, so we are getting thoracic imaging and we will continue to follow this. 3. Elevated troponin, etiology unclear. She is not having any chest pain. She is not short of breath. I think etiology is unclear with the elevated troponin. I am going to get an echo. I will cycle her troponins. I will place her on telemetry. She is on aspirin already and we will continue to monitor. 4. Diabetes. She will be on lispro sliding scale. 5. Chronic obstructive pulmonary disease. We will continue her nebulizers and breathing treatments as prescribed. 6. Chronic back pain. I will continue her pain medications. 7. Hypertension. Continue meds as prescribed. 8. Hypothyroidism. Continue Synthroid. 9. Hyperlipidemia. I will continue her current medical regimen at this point. 10. Depression and anxiety. Continue meds as described. 11. Dementia. Continue with supportive care. 12. History of coronary artery disease. She is on aspirin for the time being. 13. Gastroesophageal reflux disease. Continue PPI therapy. 14. DVT prophylaxis. Because of this hematoma, I am going to hold off on heparin subcu. I will place her on SCDs. If her H and H remain stable between today and tomorrow, we will consider starting her on heparin subcu. 15. Code status. Full code. 16. Fluid, electrolytes, nutrition. She can have a consistent carb diet. TIME SPENT: On the admission was 70 minutes, greater than half of the time was spent [id number] with the patient, obtaining my history and physical, the other half of the time was spent going over the plan of care with the patient and implementing the plan of care. I did discuss the plan of care with my attending, Dr. Taylor; he is in agreement. VINCE ATWOOD NP [id number]/[facility] #: [id number] [place]
[2017-06-26 00:29] LABS: EGFR Non-African American 84.1 (>60)
[2017-06-26] MEDS: oxyCODONE SR TAB(*) 10 MG TAB.SR PO SCH ×2 (05:25→21:15)
[2017-06-26] MEDS: Levothyroxine TAB* 88 MCG TAB PO SCH (05:27)
[2017-06-26 06:36] LABS: ABS Basophils 0.1 10^3/ul (0-0.2); ABS Eosinophils 0.3 10^3/ul (0-0.6); ABS Lymphocytes 2.3 10^3/ul (1.0-4.8); ABS Monocytes 0.7 10^3/ul (0-0.8); ABS Neutrophils 4.2 10^3/ul (1.5-7.7); ABS Nucleated RBC 0 10^3/ul; Eosinophil % 3.7 % (0-6); Hematocrit 32 % (35-47); Hemoglobin 10.7 g/dl (12.0-16.0); Lymphocyte % 30.3 % (25-47); Mean Corpuscular HGB Conc 33 g/dl (31-36); Mean Corpuscular Hemoglobin 30 pg (27-31); Mean Corpuscular Volume 91 fL (80-97); Mean Platelet Volume 7.6 um3 (7.4-10.4); Nucleated Red Blood Cells % 0; Platelet Count 427 10^3/ul (150-450); Red Blood Count 3.55 10^6/ul (4.0-5.4); Red Cell Distribution Width 15 % (10.5-15); White Blood Count 7.5 10^3/ul (3.5-10.8)
[2017-06-26 06:40] LABS: INR 1.02 (0.77-1.02)
[2017-06-26 06:56] LABS: EGFR Non-African American 84.1 (>60)
[2017-06-26] MEDS ORDERED: Omeprazole CAP* 20 MG PO SCH (07:30)
[2017-06-26] MEDS ORDERED: Insulin LISPRO* 1 UNITS UNIT SUBCUT SCH (07:30)
[2017-06-26] MEDS: Mometasone/Formoter 200/5 MDI INH SCH ×2 (08:35→19:24)
[2017-06-26] MEDS: Tiotropium CAP.INH* CAP.INH/18 MCG (USE ORDER SET !) INH SCH (08:36)
[2017-06-26] MEDS: Famotidine TAB* 20 MG PO SCH (08:59)
[2017-06-26] MEDS ORDERED: Lisinopril TAB* 10 MG PO SCH (09:00)
[2017-06-26] MEDS ORDERED: Venlafaxine EXT RELEASE CAP* 75 MG PO SCH (09:00)
[2017-06-26] MEDS ORDERED: BuPROPion XL* 150 MG TAB.XL PO SCH (09:00)
[2017-06-26] MEDS ORDERED: Spiriva Inhaler DEVICE* 1 EACH DEVICE INH ONE (09:00)
--- NOTE | 2017-06-26 09:30 | ECHO ---
Patient: POLO MORRIS [facility] Rec#: [id number] : 1940 Date: 06/26/2017 Age: 77y Height: 157.48 cm / 62.0 in Weight: 63.96 kg / 141.0 lbs Sex: F BSA: 1.65 Room#: 438 Admit Date#: 06/25/2017 Type: Inpatient Referring: Vince Atwood NP Reading: Haylee Santiago MD Heel Scorer: Jelly Boudreaux RDCS CC: Jaleesa De La Vega Transthoracic Echocardiogram Indication: ACS/CAD BP: 135/57 HR: 64 Rhythm: NSR Findings History: DM,COPD,HLD,HTN,hypothyroid,GERD,anxiety,vertigo,CAD,dementia. Technical Comments: The study quality is good. Completed at 0850. Left Ventricle: The left ventricular chamber size is normal. Moderate concentric left ventricular hypertrophy is observed. Global left ventricular wall motion and contractility are within normal limits. There is normal left ventricular systolic function. The estimated ejection fraction is 55-60%. Abnormal left ventricular diastolic filling is observed, consistent with impaired relaxation. The left ventricular diastolic filling pattern is consistent with elevated left ventricular end-diastolic pressure. Left Atrium: The left atrium is severely dilated. Right Ventricle: The right ventricular cavity size is normal. The right ventricular global systolic function is normal. Right Atrium: The right atrium is mildly dilated. Aortic Valve: The aortic valve is trileaflet. There is evidence of aortic sclerosis without stenosis. There is moderate aortic regurgitation. There is no evidence of aortic stenosis. The mean gradient of the aortic valve is 9.37 mmHg. The measured aortic regurgitation pressure half-time is 459 msec. Mitral Valve: The mitral valve leaflets are mildly thickened. Mitral valve leaflet mobility is mildly restricted. There is moderate mitral regurgitation. The mitral regurgitant jet is posteriorly directed. The mitral regurgitant jet is laterally directed. There is mild to moderate mitral stenosis. based on visual estimate and mean gradient, no PISA performed. The mean gradient across the mitral valve is 5.89 mmHg. Tricuspid Valve: The tricuspid valve leaflets are normal. There is mild to moderate tricuspid regurgitation. The right ventricular systolic pressure is estimated at 49 mmHg. There is evidence of moderate pulmonary hypertension. There is no tricuspid stenosis. Pulmonic Valve: The pulmonic valve appears normal. There is no evidence of pulmonic regurgitation. There is no pulmonic stenosis. Pericardium: A pericardial fat pad is visualized. Aorta: There is no dilatation of the ascending aorta. There is no dilatation of the aortic arch. There is no dilation of the aortic root. Pulmonary Artery: The main pulmonary artery appears normal. Venous: The inferior vena cava is dilated. There is a greater than 50% respiratory change in the inferior vena cava dimension. Conclusions Moderate concentric left ventricular hypertrophy is observed. Global left ventricular wall motion and contractility are within normal limits. The estimated ejection fraction is 55-60%. Abnormal left ventricular diastolic filling is observed, consistent with impaired relaxation. Elevated left ventricular end-diastolic pressure. The right ventricular global systolic function is normal. The left atrium is severely dilated. There is evidence of aortic sclerosis without stenosis. There is moderate aortic regurgitation: pressure half-time is 459 msec. Mitral valve leaflet mobility is mildly restricted. There is moderate mitral regurgitation-posterior lateral jet. There is mild to moderate mitral stenosis. based on visual estimate and mean gradient, no PISA performed. The mean gradient across the mitral valve is 5.89 mmHg. There is mild to moderate tricuspid regurgitation. There is evidence of moderate pulmonary hypertension: 49 mmHg. No prior study to compare. Measurements Name Value Normal Range RVIDd (AP) 2D 2.6 cm (0.9 - 2.6) RVDdMajor (2D) 3.3 cm (2.2 - 4.4) RAd ISD 4CH 5.2 cm (3.4 - 4.9) RA (A4C)W 3.3 cm (2.9 - 4.6) IVSd (2D) 1.3 cm (0.6 - 1) LVPWd (2D) 1.5 cm (0.6 - 1) LVIDd (2D) 4.5 cm (3.6 - 5.4) LVIDs (2D) 3.4 cm - LV FS (2D) 26 % (25 - 45) Aortic Annulus 1.8 cm (1.4 - 2.6) Ao root diameter (2D) 3.1 cm (2.1 - 3.5) Ascending Ao 3 cm (2.1 - 3.4) Aortic arch 2 cm (1.8 - 3.4) Descending Ao 0.6 cm - LA dimension (AP) 2D 4.6 cm (2.3 - 3.8) LAd ISD 4CH 5.8 cm (2.9 - 5.3) LA ISD 4CH W 3.9 cm (2.5 - 4.5) Name Value Normal Range LA ESV SP 4CH (A/L) 74 ml - LA ESV SP 2CH (A/L) 98 ml - LA ESV BP (A/L) 86 ml - LA ESV BP (A/L) index 51.91 ml/m2 - LA ESV SP 4CH (MOD) 68 ml - LA ESV SP 2CH (MOD) 92 ml - Name Value Normal Range MV E-wave Vmax 2 m/sec - MV deceleration time 173 msec - MV A-wave Vmax 2.4 m/sec - MV E:A ratio 0.84 ratio - LV septal e' Vmax 0.03 m/sec - LV lateral e' Vmax 0.05 m/sec - LV E:e' septal ratio 66.67 ratio - LV E:e' lateral ratio 40 ratio - Name Value Normal Range AV Vmax 2.5 m/sec - AV VTI 46.6 cm - AV peak gradient 24.13 mmHg - AV mean gradient 9.37 mmHg - LVOT diameter 1.9 cm - LVOT Vmax 1 m/sec - LVOT VTI 22.9 cm - LVOT peak gradient 4 mmHg - LVOT mean gradient 1.69 mmHg - SV LVOT 73 ml - AR PHT 459 msec - AR peak gradient 81.8 mmHg - Name Value Normal Range MV Vmax 2.4 m/sec - MV VTI 71.88 cm - MV peak gradient 22.13 mmHg - MV mean gradient 5.89 mmHg - MV PHT 38 msec - MR Vmax 5.5 m/sec - MR VTI 217 cm - MVA (PHT) 5.7 cm2 - MVA (continuity VTI) 1 cm2 - Name Value Normal Range TR Vmax 3.2 m/sec - TR peak gradient 41 mmHg - RAP 8 mmHg - RVSP 49 mmHg - IVC diameter 2.2 cm - Name Value Normal Range PV Vmax 1 m/sec - PV peak gradient 3.66 mmHg -
--- NOTE | 2017-06-26 10:06 | PN ---
Subjective Date of Service: 06/26/17 Interval History: C/O pain R side abd, better today. Hasn't walked here yet. Objective Active Medications: Acetaminophen (Tylenol Tab*) 650 mg PO Q4H PRN PRN Reason: FEVER/PAIN Albuterol (Ventolin 2.5 Mg/3 Ml Neb.Tuyet*) 2.5 mg INH Q2H PRN PRN Reason: SOB/WHEEZING Amlodipine Besylate (Norvasc Tab*) 2.5 mg PO DAILY [facility] Aspirin (Aspirin Ec Low Dose*) 81 mg PO DAILY [facility] Bupropion HCl (Wellbutrin Xl *) 150 mg PO DAILY [facility] PRN Reason: Protocol Bupropion HCl (Bupropion Xl*) 300 mg PO DAILY [facility] Famotidine (Pepcid Tab*) 40 mg PO DAILY WITH MEAL [facility] PRN Reason: Protocol Last Admin: 06/26/17 08:59 Dose: Not Given Gabapentin (Neurontin Cap(*)) 100 mg PO BID [facility] Last Admin: 06/25/17 21:28 Dose: 100 mg Ceftriaxone Sodium 1,000 mg/ (Sodium Chloride) 10 mls @ 40 mls/hr IVPB Q24H [facility] Last Admin: 06/25/17 21:35 Dose: 40 mls/hr Levothyroxine Sodium (Synthroid Tab*) 88 mcg PO DAILY@0600 [facility] Last Admin: 06/26/17 05:27 Dose: 88 mcg Lidocaine (Lidoderm 5% Patch*) 1 patch TRANSDERM DAILY [facility] Lisinopril (Prinivil Tab*) 5 mg PO DAILY [facility] Mometasone Furoate/Formoterol Fumar (Dulera 200/5 Mdi*) 2 puff INH BID [facility] Last Admin: 06/26/17 08:35 Dose: Not Given Omeprazole (Prilosec Cap*) 20 mg PO DAILY@0730 [facility] PRN Reason: Protocol Last Admin: 06/26/17 08:58 Dose: 20 mg Ondansetron HCl (Zofran Inj*) 4 mg IV Q6H PRN PRN Reason: NAUSEA Oxycodone HCl (Oxycontin(*)) 30 mg PO Q8HR [facility] Last Admin: 06/26/17 05:25 Dose: 30 mg Pharmacy Profile Note (Lidocaine Patch Remove*) 1 note PATCH OFF 2100 [facility] Tiotropium [place] (Spiriva Cap.Inh*) 1 cap INH DAILY [facility] Last Admin: 06/26/17 08:36 Dose: Not Given Trazodone HCl (Desyrel Tab*) 100 mg PO BEDTIME [facility] Last Admin: 06/25/17 21:29 Dose: 100 mg Venlafaxine HCl (Effexor Xr Cap*) 150 mg PO DAILY [facility] Venlafaxine HCl (Effexor Xr Cap*) 75 mg PO DAILY [facility] Vital Signs - 8 hr 06/26/17 06/26/17 06/26/17 03:40 05:25 07:59 Temperature 98.0 F Pulse Rate 71 Respiratory 16 16 16 Rate Blood Pressure 135/57 (mmHg) O2 Sat by Pulse 87 Oximetry 06/26/17 08:00 Temperature Pulse Rate Respiratory 16 Rate Blood Pressure (mmHg) O2 Sat by Pulse Oximetry Oxygen Devices in Use Now: Nasal Cannula Appearance: Alert, supine in bed. In good spirits. Looks comfortable. Eyes: No Scleral Icterus Respiratory: Symmetrical Chest Expansion and Respiratory Effort, Clear to Auscultation, Clear to Percussion Cardiovascular: NL Sounds; No Murmurs; No JVD, RRR, No Edema, - Abdominal: NL Sounds; No Tenderness; No Distention, No Hepatosplenomegaly, - Extremities: No Edema, No Clubbing, Cyanosis, - - pain with bed-turning. Skin: No Nodules or Sclerosis, - - Ecchymosis R flank, L thigh Neurological: Alert and Oriented x 3, NL Sensation Result Diagrams: 06/26/17 06:02 06/26/17 06:02 Microbiology and Other Data: Microbiology 06/25/17 19:52 Influenza Types A,B Antigen (LISA) - Final Nasal Specimen received for Influenza A/B Molecular testing Assess/Plan/Problems-Billing Assessment: - Patient Problems (1) Multiple falls Current Visit: Yes Status: Acute Code(s): R29.6 - REPEATED FALLS SNOMED Code(s): 849265401 Comment: Lisinopril dose decreased. PT eval. (2) COPD (chronic obstructive pulmonary disease) Current Visit: No Status: Chronic Code(s): J44.9 - CHRONIC OBSTRUCTIVE PULMONARY DISEASE, UNSPECIFIED SNOMED Code(s): 65619750 Comment: On home O2. Continue tiotropium, dual inhaler. (3) Hypothyroid Current Visit: No Status: Chronic Code(s): E03.9 - HYPOTHYROIDISM, UNSPECIFIED SNOMED Code(s): 13685571 Comment: TSH 3.09 06/25/17. (4) CAD (coronary artery disease) Current Visit: No Status: Chronic Code(s): I25.10 - ATHSCL HEART DISEASE OF [place] CORONARY ARTERY W/O ANG PCTRS SNOMED Code(s): 76569208 Comment: Continue ASA. Pt should discuss statin with her PCP.
[2017-06-26] MEDS: Lidocaine PATCH 5%* 1 PATCH TRANSDERM SCH (10:26)
[2017-06-26] MEDS: Aspirin EC TAB* 81 MG TAB.EC PO SCH (10:27)
[2017-06-26] MEDS: BuPROPion XL* 300 MG TAB.XL PO SCH (10:27)
[2017-06-26] MEDS: Gabapentin CAP(*) 100 MG PO SCH ×2 (10:28→21:13)
[2017-06-26] MEDS: Venlafaxine EXT RELEASE CAP* 75 MG PO SCH (10:29)
[2017-06-26] MEDS: amLODIPine TAB* 5 MG PO SCH (10:30)
[2017-06-26] MEDS: Lisinopril TAB* 10 MG PO SCH (10:30)
[2017-06-26] MEDS ORDERED: oxyCODONE SR TAB(*) 10 MG TAB.SR PO SCH (18:00)
[2017-06-26] MEDS ORDERED: Lidocaine Patch REMOVE* 1 NOTE MISC PATCH OFF SCH (21:00)
[2017-06-26] MEDS: cefTRIAXone 1000 MG SYRINGE IVPB Q24H (in NaCl) IVPB SCH ×2 (21:06)
[2017-06-26] MEDS: traZODone TAB* 100 MG PO SCH (21:16)
--- NOTE | 2017-06-26 22:07 | CONS ---
CC: Helene Rizo NP * NEUROLOGY CONSULTATION: DATE OF CONSULT: 06/26/17 PRIMARY CARE PROVIDER: Helene Rizo NP, [facility] REASON FOR CONSULT: Falls and right leg weakness. HISTORY OF PRESENT ILLNESS: Ms. Nagy is a 77-year-old woman with a history of diet controlled diabetes, COPD, dementia, hypertension, and hyperlipidemia as well as chronic falling who came in to the emergency department yesterday because of an increase in falls. There is no other family in the room and I was unsuccessful in getting in touch with her daughter and the patient herself does not seem to be the most reliable informant secondary to her dementia. Nevertheless, she states that she has been falling for a long time; but over the last 2 to 3 months, she has had an increase in falls and yesterday, when she got up, she fell 3 times and so called her son, who brought her in to the emergency room. She has had multiple bruises over her body from falling and states she has hit her head as well, though denies loss of consciousness. She states she sometimes gets dizzy before she falls and other times, she states that she is asleep and then when she wakes up and gets up to move, she falls, but this is not always the case. She does not use any assistive device to ambulate at home. Recently, she had a fall, which caused extensive bruising over her left lateral leg. She also has some resolving bruising over her right lateral thigh as well. She further describes discomfort across her abdomen, possibly in her lower rib cage. She also describes back pain to me, which is in the lower back and radiates into the right gluteal region as well as into the hip and sometimes down the right leg. She also describes chronic difficulties with her memory. Upon evaluation of her, I began questioning her about her vision and she endorses double vision when directly asked. She apparently sees Dr. Brandon and says that she was told she had a cyst in her eye, but is unable to give any other details about that. She states she has had progressive vision loss in the left eye over the past several years. She denies any recent change in her medications. On her admission evaluation to the hospital by Vince Atwood, he noticed right flexor weakness and in the context of falls, has asked Neurology to evaluate. PAST MEDICAL HISTORY: 1. Diet controlled diabetes. 2. COPD. 3. Chronic back pain. 4. Hypertension. 5. Hyperlipidemia. 6. Hypothyroidism. 7. GERD. 8. Anxiety. 9. Vertigo. 10. CAD. 11. Dementia. PAST SURGICAL HISTORY: 1. Partial thyroidectomy. 2. Cholecystectomy. 3. Appendectomy. 4. Hysterectomy. HOME MEDICATIONS: 1. Lisinopril 20 mg daily. 2. Trazodone 100 mg at bedtime. 3. Venlafaxine 150 mg daily as well as 75 mg daily. 4. Spiriva 1 daily. 5. Aspirin 81 mg. 6. Wellbutrin 450 mg daily. 7. Amlodipine 2.5 mg daily. 8. Ranitidine 300 mg daily. 9. Advair Diskus twice daily. 10. Nexium 40 mg daily. 11. Gabapentin 100 mg twice daily. 12. Amitriptyline 25 mg at bedtime. 13. Levothyroxine 88 mcg daily. 14. [place] 7.5/325 mg 1 tablet q.6 hours p.r.n. 15. Ipratropium bromide 2 sprays daily. 16. Oxycodone 30 mg q.8 hours. 17. Sumatriptan 50 mg once daily as needed. ALLERGIES: No known drug allergies. FAMILY HISTORY: Mother with a history of cancer. Father with a history of heart failure. SOCIAL HISTORY: The admission H and P indicates that she reported smoking a half pack per day, but to me she states she smokes 1 or 2 cigarettes per week. She has an extensive smoking history and uses oxygen at night. She does not drink alcohol. REVIEW OF SYSTEMS: She reported unintentional weight loss to me, which if the baseline weight she reports is correct at 185 pounds, then she has lost 50 pounds over some period of time. The exact period is unclear. She reports feeling sleepy often and sleeping too much. She has a chronic cough. She did not endorse any chest pain. She did endorse some numbness and tingling in her lower extremities and describes this in her groin bilaterally as well as in her feet. However, it appeared at times that she was describing pain rather than numbness or tingling. PHYSICAL EXAMINATION: Vital Signs: Temperature 98.4, blood pressure 160/60, heart rate 64, oxygen saturation 96% on O2 by nasal cannula. When I initially entered the room, she was asleep and required gentle tactile stimulation in order to wake up. At a few times during my evaluation, she was noted to begin to drift off to sleep; but in general, was able to maintain alertness and participate well throughout the evaluation. She has bruising over her left upper thigh, lateral aspect as well as a small area on her lateral thigh on the right. She has arcus senilis laterally. Lung sounds are clear to auscultation. Her heart is in a regular rate and rhythm with a soft systolic ejection murmur. Her skin was intact. There was no obvious joint swelling or erythema. On neurologic examination, she had a difficult time stating whether it was May or May. She was several days off on the exact date. She initially stated it was 208, but then was able to say 2017. She was able to describe the cookie theft picture, though said that boy was getting cigarettes down off the shelf. She was able to name objects on the stroke cards, but had difficulty with low frequency objects. Her speech is clear. On neurologic exam, her pupils are equal, round, and reactive from 3 to 2 mm bilaterally. She did appear to have intermittent left exophoria but did not report any diplopia on exam and there are full eye movements. Her sanchez are full to confrontation bilaterally. Facial sensation and musculature is full and symmetric. Hearing is intact to finger rub on the right, but diminished on the left. The palate elevates symmetrically and the tongue is midline. On motor examination, she was paratonic throughout. Her strength is full in the upper extremities with no pronator drift. Her strength is full in the left lower extremity as well as the distal right lower extremity and when she is given encouragement, her strength is full in the right hip flexor as well, but she describes pain with each attempt at formal muscle testing in her right lower back into her gluteal region. She has a difficult time describing where this pain radiates, but it seems that it may radiate into her calf on lateral aspect on the right. On sensory testing, there is no deficit to pinprick in the upper and lower extremities. She does not sense vibration at the right great toe, but is able to sense it at the left toe, though it is difficult to gauge exactly how long. Her proprioception is intact bilaterally in the great toes. Reflexes are 2+ throughout the upper extremities, 2+ at the knees and absent ankle jerks bilaterally with downgoing toes. [id number] and heel-to- merida are without ataxia. I ambulated her with a walker and she was overall stable with no clear asymmetries in her gait. LABORATORY DATA: Her laboratory data was reviewed and overall was not contributory to her current presentation including a CBC, BMP. Her urinalysis showed 3+ leukocyte esterase and 3+ white blood cells, but nitrites. Her urine has grown out E. coli and she is currently being treated with ceftriaxone. IMAGING: Since her admission, she has had several imaging studies including a CT of her spine, which shows multilevel degenerative changes in the cervical, thoracic, and lumbar spine with compression deformities of T11 and L1 with no acute fracture or dislocation. There is also apparently new compression fracture of T10, which was confirmed on the MRI of the spine. Furthermore, the MRI of the lumbar spine showed moderate right neuroforaminal stenosis at the L3- 4 level and moderate left neuroforaminal stenosis at the L4-5 level and otherwise, the degree of stenosis of either central canal or the neural foramina was of a no significant degree or mild degree. The MRI of her thoracic spine demonstrates fluid signal at the superior endplate of the T10 vertebral body, which was not seen on a November 2016 MRI of the thoracic spine and was thought to be compatible with an acute to subacute compression fracture. IMPRESSION: Shu Nagy is a 77-year-old woman with multiple medical problems who presented to the emergency room with an increase in falls. There was concern for a possible neurologic etiology for apparent right hip flexor weakness; but on my exam today, I think this is more related to pain coming from her back and into her hip than true weakness. Her MRI scan does show a new compression fracture at T10, which could be contributing to her back pain. There is no obvious nerve root compression to explain the radicular pain that she seems to report in her right leg. She may have some sciatic compression and might benefit from physical therapy in this regard. I also think that she would benefit from using a walker. Furthermore, I think a close attention needs to be paid to her extensive home medication list with multiple sedating medications including trazodone, Effexor , Wellbutrin, amitriptyline, [place], and oxycodone. This alone puts her at risk for falls and attempts should be made to streamline her medications as much as possible. I do not think she needs any further neurologic workup at this time. 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 Thank you for this consultation. Please let me know if I can assist in Ms. Nagy 's care in the future. [id number]/[facility] #: [id number] [place]
[2017-06-27] MEDS: Levothyroxine TAB* 88 MCG TAB PO SCH (05:20)
[2017-06-27] MEDS: Mometasone/Formoter 200/5 MDI INH SCH (08:28)
[2017-06-27] MEDS: Tiotropium CAP.INH* CAP.INH/18 MCG (USE ORDER SET !) INH SCH (08:28)
[2017-06-27 08:58] VITALS: BP 130/55
--- NOTE | 2017-06-27 08:59 | PN ---
Progress Note - Progress Note Date of Service: 06/27/17 Note: Time spent on discharge 50 minutes.
[2017-06-27] MEDS ORDERED: Cholecalciferol TAB* 1000 UNITS PO SCH (09:00)
[2017-06-27] MEDS: Famotidine TAB* 20 MG PO SCH (10:29)
[2017-06-27] MEDS: amLODIPine TAB* 5 MG PO SCH (10:29)
[2017-06-27] MEDS: Aspirin EC TAB* 81 MG TAB.EC PO SCH (10:30)
[2017-06-27] MEDS: Lisinopril TAB* 10 MG PO SCH (10:31)
[2017-06-27] MEDS: Lidocaine PATCH 5%* 1 PATCH TRANSDERM SCH (10:31)
[2017-06-27] MEDS: Venlafaxine EXT RELEASE CAP* 75 MG PO SCH (10:32)
[2017-06-27] MEDS: oxyCODONE SR TAB(*) 10 MG TAB.SR PO SCH (10:36)
[2017-06-27] MEDS: BuPROPion XL* 300 MG TAB.XL PO SCH (10:37)
[2017-06-27] MEDS ORDERED: traZODone TAB* 50 MG TAB PO SCH (21:00)
--- NOTE | 2017-06-28 03:53 | DS ---
CC: Helene Rizo NP * DISCHARGE SUMMARY: DATE OF ADMISSION: DATE OF DISCHARGE: 06/27/17 HOSPITAL COURSE: This 77-year-old woman presented with a complaint of frequent falls and right-sided pain radiating from her back to her right lower leg. The history is detailed in the admission note. She was evaluated in the emergency room with CT scan of the cervical, lumbar and thoracic spine and MRI of the thoracic and lumbar spine. She also had a transthoracic echocardiogram and CT scan of the abdomen and pelvis, plain film of the thoracic spine and chest x-ray. MRI was suspicious for some degree of compression fracture of T10. Echocardiogram showed normal ejection fraction. There was moderate aortic regurgitation. The left atrium was severely dilated. The impaired abnormal left ventricular diastolic filling was also observed. The patient's pain more or less resolved. She was evaluated in consultation by Dr. De La Vega and Dr. Pelayo. Dr. De La Vega felt that the patient's problem with frequent falls was most likely related to her back pain and compression fracture and felt that no further neurologic workup was needed. The patient was seen by Physical Therapy. She tended to fall backwards. She was also noted by the staff to be somewhat sedated. I reduced her oxycodone from 30 mg t.i.d. to 30 mg b.i.d., I also reduced several other psychotropic drugs all of which could contribute to falls. Her mentation seemed to improve on less oxycodone. I also decreased the lisinopril from 20 to 5 mg daily as her blood pressure was also low. This may also help reduce the incidence of frequent falls. FINAL DIAGNOSES: 1. Frequent falls. 2. T10 compression fracture. 3. Chronic obstructive pulmonary disease. 4. Hypothyroidism. 5. Coronary artery disease. DISCHARGE MEDICATIONS: 1. Vitamin D 1000 units daily. 2. Lisinopril 5 mg daily. 3. Oxycodone SR 30 mg b.i.d. 4. Trazodone 50 mg h.s. 5. Venlafaxine 150 mg daily. 6. Tiotropium 1 capsule daily. 7. Aspirin 81 mg daily. 8. Bupropion XL 300 mg daily. 9. Amlodipine 2.5 mg daily. 10. Ranitidine 300 mg daily. 11. Fluticasone-salmeterol 250/50 one puff b.i.d. 12. Esomeprazole 40 mg daily. 13. Gabapentin 100 mg b.i.d. 14. Levothyroxine 88 mcg daily. 15. Hydrocodone-acetaminophen 7.5/325 one every 6 hours p.r.n. 16. Ipratropium bromide 2 sprays both nares daily. 17. Sumatriptan 50 mg p.r.n. Consideration for further dose reduction or elimination of some of these medications should be given. [id number]/[facility] #: [id number] MTDD
== END 2017-06-27 11:50 | disposition home health service (06) | DRG 544 ==
LOC: ED 13:21 → MEDTELE 17:49 → OBSVTOIN 06-26 15:00
PROVIDERS: ADMIT Internal Medicine; ATTEND Internal Medicine
DX: M48.54XA Collapsed vertebra, not elsewhere classified, thoracic region, initial encounter for fracture (principal); J44.9 Chronic obstructive pulmonary disease, unspecified; E11.9 Type 2 diabetes mellitus without complications; G89.29 Other chronic pain; M54.9 Dorsalgia, unspecified; I10 Essential (primary) hypertension; E03.9 Hypothyroidism, unspecified; E78.5 Hyperlipidemia, unspecified; K21.9 Gastro-esophageal reflux disease without esophagitis; F41.9 Anxiety disorder, unspecified; I25.10 Atherosclerotic heart disease of native coronary artery without angina pectoris; F03.90 Unspecified dementia, unspecified severity, without behavioral disturbance, psychotic disturbance, mood disturbance, and anxiety; R29.6 Repeated falls; F17.210 Nicotine dependence, cigarettes, uncomplicated; F32.9 Major depressive disorder, single episode, unspecified; S70.11XA Contusion of right thigh, initial encounter; S80.12XA Contusion of left lower leg, initial encounter; W19.XXXA Unspecified fall, initial encounter; H50.52 Exophoria; R07.81 Pleurodynia; I35.1 Nonrheumatic aortic (valve) insufficiency; Z90.710 Acquired absence of both cervix and uterus; Z90.49 Acquired absence of other specified parts of digestive tract; Z82.49 Family history of ischemic heart disease and other diseases of the circulatory system; Z80.9 Family history of malignant neoplasm, unspecified; Y92.9 Unspecified place or not applicable; Z79.82 Long term (current) use of aspirin
CPT/HCPCS: 36415; 70450; 71046; 72070; 72125; 72128; 72131; 72146; 72148; 74177; 80048; 80053; 80320; 81003; 81015; 82306; 82607; 82746; 83605; 84443; 84484; 85025; 85610; 87040; 87077; 87086; 87186; 87502; 93005; 93306; 94640; 94760; 99284; A9270-GY; G0378; G0480; G8978-GP-CJ; G8979-GP-CI; J0696; Q9967

== ENCOUNTER 2017-07-19 17:25 | Emergency (ER) | payer MEDICARE, MEDICAID ==
[2017-07-19 20:27] VITALS: BP 0/0
--- NOTE | 2017-07-19 21:49 | ED ---
Damien Bernal Jennifer, scribed for Monico King MD on 07/19/17 at 1915 . Back Pain - HPI Summary HPI Summary: The patient is a 77 year old female who presents with back pain that began 2-3 weeks ago and worsened in the last week. The patient reports she went to [place] and [facility] for her back pain, but they did not help her. She reports that she has back pain on both sides of her back that worsens upon palpation. She adds that when she sits, it feels like she is sitting on a rock or ball. The patient explains that when she is about to sneeze or cough, her whole back hurts and the pain radiates to her upper abdomen. She additionally complains of constipation and inability to sleep due to the pain. - History of Current Complaint Chief Complaint: EDAbdPain Stated Complaint: ABD AND BACK PAIN Time Seen by Provider: 07/19/17 18:04 Hx Obtained From: Patient Hx Last Menstrual Period: post menopause Onset/Duration: Sudden Onset, Lasting Weeks - 2-3 weeks, Still Present, Worse Since - last week Onset/Duration: Still Present, Worse Since - this week Timing: Constant Back Pain Location: Is Diffuse Severity Initially: Severe Severity Currently: Severe Pain Intensity: 10 Pain Scale Used: 0-10 Numeric Character: Unable to Describe Aggravating Symptom(s): Other - Sneezing, coughing Alleviating Symptom(s): Nothing Associated Signs And Symptoms: Positive: Other - abdominal pain, constpiation, inability to sleep - Allergies/Home Medications Allergies/Adverse Reactions: Allergies Allergy/AdvReac Type Severity Reaction Status Date / Time No Known Allergies Allergy Verified 07/19/17 17:26 PMH/Surg Hx/FS Hx/Imm Hx Endocrine/Hematology History: Reports: Hx Diabetes - hypoglycemic, Hx Thyroid Disease - hypothyroid Denies: Hx Systemic Lupus Erythematosus Cardiovascular History: Reports: Hx Angina, Hx Coronary Artery Disease, Hx Hypercholesterolemia, Hx Hypertension, Hx Myocardial Infarction, Hx Rheumatic Fever, Other Cardiovascular Problems/Disorders - ANGINA Denies: Hx Congestive Heart Failure, Hx Pacemaker/ICD Respiratory History: Reports: Hx Seasonal Allergies, Other Respiratory Problems/ Disorders - SMOKER, ON OXYGEN AT 3 LITERS AT NIGHT Denies: Hx Asthma, Hx Chronic Obstructive Pulmonary Disease (COPD) GI History: Reports: Hx Gastroesophageal Reflux Disease, Hx Hiatal Hernia, Other GI Disorders - hiatal hernia Denies: Hx Ulcer History: Reports: Hx Renal Disease - hx of cyst removal, Other Problems/ Disorders - cysts removed from kidney Denies: Hx Dialysis Musculoskeletal History: Reports: Hx Arthritis - BILATERAL KNEES, BACK, BILATERAL HANDS, Hx Back Problems Denies: Hx Rheumatoid Arthritis Sensory History: Reports: Hx Contacts or Glasses - glasses Denies: Hx Hearing Aid Opthamlomology History: Reports: Hx Contacts or Glasses - glasses Neurological History: Reports: Hx Headaches, Hx Migraine Denies: Hx Dementia, Hx Seizures Psychiatric History: Reports: Hx Anxiety, Hx Depression Denies: Hx Panic Disorder, Hx Substance Abuse - Cancer History Cancer Type, Location and Year: Reports tumor in pelvis , melanoma, Hx Chemotherapy: No Hx Radiation Therapy: No Hx Palliative Cancer Treatment: No - Surgical History Surgery Procedure, Year, and Place: CATARACTS; PARTIAL THYROIDECTOMY; PAVAN; HYSTERECTOMY; T&A; APPENDECTOMY; CYST REMOVED FROM KIDNEY; BACK SURGERY; MELANOMA REMOVED FROM LEFT ARM; NASAL SURGERY Hx Anesthesia Reactions: No - Immunization History Date of Tetanus Vaccine: Unk Date of Influenza Vaccine: 01/09/13 Infectious Disease History: No Infectious Disease History: Reports: Hx Shingles Denies: Hx Hepatitis, Hx Human Immunodeficiency Virus (HIV), History Other Infectious Disease, Traveled Outside the [place] in Last 30 Days - Family History Known Family History: Positive: Cardiac Disease - CHF, Other - CANCER - Social History Alcohol Use: None Substance Use Type: Reports: None Smoking Status (MU): Light Every Day Tobacco Smoker Type: Cigarettes Amount Used/How Often: 1/2 PPD Length of Time of Smoking/Using Tobacco: 60 years Have You Smoked in the Last Year: Yes Review of Systems Gastrointestinal: Other - constipation Positive: Abdominal Pain Positive: Myalgia - back pain All Other Systems Reviewed And Are Negative: Yes Physical Exam - Summary Physical Exam Summary: Appearance: The patient is well-nourished in no acute distress and in no acute pain. Skin: The skin is warm and dry and skin color reflects adequate perfusion. HEENT: The head is normocephalic and atraumatic. The pupils are equal and reactive. The conjunctivae are clear and without drainage. Nares are patent and without drainage. Mouth reveals moist mucous membranes and the throat is without erythema and exudate. The external ears are intact. The ear canals are patent and without drainage. The tympanic membranes are intact. Neck: the neck is supple with full range of motion and non-tender. There are no carotid bruits. There is no neck vein distension. Respiratory: Chest is non-tender. Lungs are clear to auscultation and breath sounds are symmetrical and equal. Cardiovascular: Heart is regular rate and rhythm. There is no murmur or rub auscultated. There is no peripheral edema and pulses are symmetrical and equal. Abdomen: The abdomen is soft and non-tender. There are normal bowel sounds heard in all four quadrants and there is no organomegaly palpated. Musculoskeletal: There is tenderness in the paradorsal and lower dorsal area. Extremities are non-tender with full range of motion. There is good capillary refill. There is no peripheral edema or calf tenderness elicited. Neurological: Patient is alert and oriented to person, place and time. The patient has symmetrical motor strength in all four extremities. Cranial nerves are grossly intact. Deep tendon reflexes are symmetrical and equal in all four extremities. Psychiatric: The patient has an appropriate affect and does not exhibit any anxiety or depression. Triage Information Reviewed: Yes Vital Signs On Initial Exam: Initial Vitals Temp Pulse Resp BP Pulse Ox 97.7 F 72 20 151/67 99 07/19/17 17:26 07/19/17 17:26 07/19/17 17:26 07/19/17 17:26 07/19/17 17:26 Vital Signs Reviewed: Yes Diagnostics - Vital Signs Vital Signs Temp Pulse Resp BP Pulse Ox 07/19/17 18:45 65 152/69 95 07/19/17 18:44 66 87 07/19/17 17:26 97.7 F 72 20 151/67 99 - Laboratory Lab Statement: Any lab studies that have been ordered have been reviewed, and results considered in the medical decision making process. Back Pain Course/Dx - Course Course Of Treatment: Immediately after I saw Ms. Nagy, an ABC alert was called and when I returned from that, she had left. - Diagnoses Provider Diagnoses: Chronic back pain Discharge - Sign-Out/Discharge Documenting (check all that apply): Discharge - Discharge Plan Condition: Stable Disposition: ELOPEMENT Referrals: Helene Rizo [Primary Care Provider] - Additional Instructions: Follow up with your primary care physician in three days. Return to the emergency department for any new or worsening symptoms. - Billing Disposition and Condition Condition: STABLE Disposition: ELOP The documentation as recorded by the Damien moore Jennifer accurately reflects the service I personally performed and the decisions made by me, Monico King MD.
== END 2017-07-19 20:27 | disposition left against medical advice (07) ==
LOC: ED 17:25
DX: M54.9 Dorsalgia, unspecified (principal); G89.29 Other chronic pain; R10.9 Unspecified abdominal pain; K59.00 Constipation, unspecified; E11.9 Type 2 diabetes mellitus without complications; E03.9 Hypothyroidism, unspecified; 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native coronary artery with unspecified angina pectoris; I10 Essential (primary) hypertension; I25.2 Old myocardial infarction; E78.00 Pure hypercholesterolemia, unspecified; K21.9 Gastro-esophageal reflux disease without esophagitis; K44.9 Diaphragmatic hernia without obstruction or gangrene; F41.9 Anxiety disorder, unspecified; F32.9 Major depressive disorder, single episode, unspecified; F17.210 Nicotine dependence, cigarettes, uncomplicated
CPT/HCPCS: 99282

== ENCOUNTER 2017-08-23 10:31 | Emergency (ER) | payer MEDICARE, MEDICAID ==
[2017-08-23 11:09] LABS: ABS Basophils 0.1 10^3/ul (0-0.2); ABS Eosinophils 0.4 10^3/ul (0-0.6); ABS Lymphocytes 2.6 10^3/ul (1.0-4.8); ABS Monocytes 0.8 10^3/ul (0-0.8); ABS Neutrophils 5.3 10^3/ul (1.5-7.7); ABS Nucleated RBC 0 10^3/ul; Eosinophil % 4.9 % (0-6); Hematocrit 38 % (35-47); Hemoglobin 12.7 g/dl (12.0-16.0); Lymphocyte % 27.9 % (25-47); Mean Corpuscular HGB Conc 34 g/dl (31-36); Mean Corpuscular Hemoglobin 31 pg (27-31); Mean Corpuscular Volume 91 fL (80-97); Mean Platelet Volume 7.8 um3 (7.4-10.4); Nucleated Red Blood Cells % 0; Platelet Count 339 10^3/ul (150-450); Red Blood Count 4.17 10^6/ul (4.0-5.4); Red Cell Distribution Width 15 % (10.5-15); White Blood Count 9.2 10^3/ul (3.5-10.8)
[2017-08-23 11:36] LABS: EGFR Non-African American 55.8 (>60)
[2017-08-23] MEDS ORDERED: Magnesium Sulfate 1 GM IV* 1 GM/100 ML BAG IV ONE (11:49)
--- NOTE | 2017-08-23 12:05 | RAD ---
HISTORY: Right upper quadrant pain COMPARISONS: CT dated June 25, 2017 TECHNIQUE: Multiple transverse and longitudinal ultrasound images were obtained of the right upper quadrant of the abdomen using grayscale and color Doppler imaging. FINDINGS: LIVER: The liver is normal in shape, size, contour, and echogenicity. There are no focal parenchymal masses. There is normal hepatopedal flow of the portal vein on Doppler imaging. BILIARY TREE: There is no intrahepatic or extrahepatic biliary dilatation. The common duct measures 0.5 cm. GALLBLADDER: The patient is status post cholecystectomy. PANCREAS: The head of the pancreas is unremarkable. The tail of the pancreas is not well visualized secondary to overlying bowel gas. RIGHT KIDNEY: There is a simple cyst of the upper pole measuring 2.1 x 1.7 x 2.3 cm. There is no hydronephrosis or nephrolithiasis. The right kidney measures 9.6 x 3.6 x 4 cm. AORTA AND IVC: There is aneurysmal dilatation of the abdominal aorta measuring 3 x 3.7 cm transversely, similar to the previous CT examination. FLUID: There are no pleural effusions. There is no free fluid within the hepatorenal recess. OTHER FINDINGS: None. IMPRESSION: 1. STATUS POST TOTAL CHOLECYSTECTOMY. 2. STABLE ABDOMINAL AORTIC ANEURYSM.
--- NOTE | 2017-08-23 12:41 | RAD ---
INDICATION: Right-sided chest pain COMPARISON: Chest x-ray dated June 25, 2017 TECHNIQUE: Single AP view of the chest was obtained. FINDINGS: The heart and mediastinum exhibit normal size and contour. Again seen is mild calcification overlying the arch of the aorta. The lungs are grossly clear. There is no evidence of a large pleural effusion. Stable healed rib fractures are noted at the lateral left ribs. IMPRESSION: No radiographic evidence for acute cardiopulmonary abnormality on this single AP view chest x-ray.
--- NOTE | 2017-08-23 12:46 | RAD ---
INDICATION: Right-sided chest pain COMPARISON: Similar radiograph August 31, 2010 TECHNIQUE: 4 views of the right ribs were obtained. FINDINGS: No fracture or significant focal osseous abnormality is seen. No pneumothorax is apparent. Limited views demonstrate grossly clear lungs. Again noted are surgical clips overlying the right upper quadrant unchanged from the prior radiograph. IMPRESSION: No radiographically apparent displaced rib fracture or pneumothorax. If the patient's symptoms persist, follow-up imaging is recommended.
--- NOTE | 2017-08-23 13:41 | ED ---
Gege Bernal Rebecca, scribed for Sergei Silverman MD on 08/23/17 at 1047 . HPI Chest Pain - HPI Summary HPI Summary: Pt is a 77 y/o F who presents to ED c/o right lateral chest pain. The pain began this morning at 0040 and is currently moderate, ranked 7/10. Sx aggravated by walking, deep breaths and positional changes, alleviated by nothing. Additionally c/o SOB and hematuria. Denies N/V, and fever. Pt fell a few days ago, multiple times, and her daughter reports she has multiple fractures in her back. Dx UTI about 3 weeks ago for which she has finished the course of Abx. PMHx COPD. SHx current smoker. - History of Current Complaint Chief Complaint: EDChestWallPain Time Seen by Provider: 08/23/17 10:36 Hx Obtained From: Patient Hx Last Menstrual Period: post menopause Onset/Duration: Started Hours Ago, Still Present Time of Onset: 04:00 Current Severity: Moderate Pain Intensity: 7 Pain Scale Used: 0-10 Numeric Chest Pain Location: Right Lateral Aggravating Factor(s): Position, Deep Breaths, Other: - Walking Alleviating Factor(s): Nothing Associated Signs and Symptoms: Positive: Shortness of Breath. Negative: Fever, Nausea - Additional Pertinent History Primary Care Physician: SANJANA - Allergy/Home Medications Allergies/Adverse Reactions: Allergies Allergy/AdvReac Type Severity Reaction Status Date / Time No Known Allergies Allergy Verified 07/19/17 17:26 Home Medications: Home Medications Albuterol 2.5MG/3ML (0.083%)* [Ventolin 2.5 MG/3 ML NEB.JORGE*] 2.5 mg INH Q6H PRN 08/23/17 [History Confirmed 08/23/17] Fenofibrate(NF) [Tricor(NF)] 160 mg PO DAILY 08/23/17 [History Confirmed ] PMH/Surg Hx/FS Hx/Imm Hx Endocrine/Hematology History: Reports: Hx Diabetes - hypoglycemic, Hx Thyroid Disease - hypothyroid Denies: Hx Systemic Lupus Erythematosus Cardiovascular History: Reports: Hx Angina, Hx Coronary Artery Disease, Hx Hypercholesterolemia, Hx Hypertension, Hx Myocardial Infarction, Hx Rheumatic Fever, Other Cardiovascular Problems/Disorders - ANGINA Denies: Hx Congestive Heart Failure, Hx Pacemaker/ICD Respiratory History: Reports: Hx Chronic Obstructive Pulmonary Disease (COPD), Hx Seasonal Allergies, Other Respiratory Problems/Disorders - SMOKER, ON OXYGEN AT 3 LITERS AT NIGHT Denies: Hx Asthma GI History: Reports: Hx Gastroesophageal Reflux Disease, Hx Hiatal Hernia, Other GI Disorders - hiatal hernia Denies: Hx Ulcer History: Reports: Hx Renal Disease - hx of cyst removal, Other Problems/ Disorders - cysts removed from kidney Denies: Hx Dialysis Musculoskeletal History: Reports: Hx Arthritis - BILATERAL KNEES, BACK, BILATERAL HANDS, Hx Back Problems Denies: Hx Rheumatoid Arthritis Sensory History: Reports: Hx Contacts or Glasses - glasses Denies: Hx Hearing Aid Opthamlomology History: Reports: Hx Contacts or Glasses - glasses Neurological History: Reports: Hx Headaches, Hx Migraine Denies: Hx Dementia, Hx Seizures Psychiatric History: Reports: Hx Anxiety, Hx Depression Denies: Hx Panic Disorder, Hx Substance Abuse - Cancer History Cancer Type, Location and Year: Reports tumor in pelvis , melanoma, Hx Chemotherapy: No Hx Radiation Therapy: No Hx Palliative Cancer Treatment: No - Surgical History Surgery Procedure, Year, and Place: CATARACTS; PARTIAL THYROIDECTOMY; PAVAN; HYSTERECTOMY; T&A; APPENDECTOMY; CYST REMOVED FROM KIDNEY; BACK SURGERY; MELANOMA REMOVED FROM LEFT ARM; NASAL SURGERY Hx Anesthesia Reactions: No - Immunization History Date of Tetanus Vaccine: Unk Date of Influenza Vaccine: 01/09/13 Infectious Disease History: No Infectious Disease History: Reports: Hx Shingles Denies: Hx Hepatitis, Hx Human Immunodeficiency Virus (HIV), History Other Infectious Disease, Traveled Outside the [place] in Last 30 Days - Family History Known Family History: Positive: Cardiac Disease - CHF, Other - CANCER - Social History Alcohol Use: None Substance Use Type: Reports: None Smoking Status (MU): Light Every Day Tobacco Smoker Type: Cigarettes Amount Used/How Often: 1/2 PPD Length of Time of Smoking/Using Tobacco: 60 years Have You Smoked in the Last Year: Yes Review of Systems Negative: Fever Positive: Chest Pain - Right lateral Positive: Shortness Of Breath Negative: Vomiting, Nausea Positive: hematuria All Other Systems Reviewed And Are Negative: Yes Physical Exam - Summary Physical Exam Summary: VITAL SIGNS: Reviewed. GENERAL: ~Patient is a well-developed and nourished female who is lying comfortable in the stretcher. ~Patient is not in any acute respiratory distress. HEAD AND FACE: No signs of trauma. ~No ecchymosis, hematomas or skull depressions. No sinus tenderness. EYES: PERRLA, EOMI x 2, No injected conjunctiva, no nystagmus. EARS: Hearing grossly intact. Ear canals and tympanic membranes are within normal limits. MOUTH: Oropharynx within normal limits. NECK: Supple, trachea is midline, no adenopathy, no JVD, no carotid bruit, no c- spine tenderness, neck with full ROM. CHEST: Symmetric, no tenderness at palpation LUNGS: Crackles in the bases of the lungs. No wheezing. CVS: Regular rate and rhythm, S1 and S2 present, 2/6 injection systolic murmur, no gallops appreciated. ABDOMEN: Soft, tender in the RUQ with some guarding but no rebound. No signs of distention. No masses palpated. Bowel sounds are normal. EXTREMITIES: FROM in all major joints, no edema, no cyanosis or clubbing. NEURO: Alert and oriented x 3. No acute neurological deficits. Speech is normal and follows commands. SKIN: Dry and warm Triage Information Reviewed: Yes Vital Signs On Initial Exam: Initial Vitals Temp Pulse Resp BP Pulse Ox 97.6 F 74 19 122/53 95 08/23/17 10:35 08/23/17 10:35 08/23/17 10:35 08/23/17 10:35 08/23/17 10:35 Vital Signs Reviewed: Yes Diagnostics - Vital Signs Vital Signs Temp Pulse Resp BP Pulse Ox 08/23/17 10:35 97.6 F 74 19 122/53 95 - Laboratory Lab Results: Lab Results 08/23/17 08/23/17 08/23/17 Range/Units 10:47 10:47 10:47 WBC 9.2 (3.5-10.8) 10^3/ul RBC 4.17 (4.0-5.4) 10^6/ul Hgb 12.7 (12.0-16.0) g/dl Hct 38 (35-47) % MCV 91 (80-97) fL MCH 31 (27-31) pg MCHC 34 (31-36) g/dl RDW 15 (10.5-15) % Plt Count 339 (150-450) 10^3/ul MPV 7.8 (7.4-10.4) um3 Neut % (Auto) 57.5 (38-83) % Lymph % (Auto) 27.9 (25-47) % Bowman % (Auto) 8.5 H (0-7) % Eos % (Auto) 4.9 (0-6) % Baso % (Auto) 1.2 (0-2) % Absolute Neuts (auto) 5.3 (1.5-7.7) 10^3/ul Absolute Lymphs (auto) 2.6 (1.0-4.8) 10^3/ul Absolute Monos (auto) 0.8 (0-0.8) 10^3/ul Absolute Eos (auto) 0.4 (0-0.6) 10^3/ul Absolute Basos (auto) 0.1 (0-0.2) 10^3/ul Absolute Nucleated RBC 0 10^3/ul Nucleated RBC % 0 APTT 33.3 (26.0-36.3) seconds Sodium 137 L (139-145) mmol/L Potassium 3.5 (3.5-5.0) mmol/L Chloride 104 (101-111) mmol/L Carbon Dioxide 26 (22-32) mmol/L Anion Gap 7 (2-11) mmol/L BUN 16 (6-24) mg/dL Creatinine 0.97 H (0.51-0.95) mg/dL Est GFR ( Amer) 71.8 (>60) Est GFR (Non-Af Amer) 55.8 (>60) BUN/Creatinine Ratio 16.5 (8-20) Glucose 114 H (70-100) mg/dL Lactic Acid (0.5-2.0) mmol/L Calcium 9.6 (8.6-10.3) mg/dL Magnesium 1.6 L (1.9-2.7) mg/dL Total Bilirubin 0.30 (0.2-1.0) mg/dL AST 12 L (13-39) U/L ALT 8 (7-52) U/L Alkaline Phosphatase 154 H (34-104) U/L Total Creatine Kinase 19 (10-223) U/L CK-MB (CK-2) 1.4 (0.6-6.3) ng/mL Troponin I 0.00 (<0.04) ng/mL B-Natriuretic Peptide ( - 100) pg/mL Total Protein 6.8 (6.4-8.9) g/dL Albumin 3.5 (3.2-5.2) g/dL Globulin 3.3 (2-4) g/dL Albumin/Globulin Ratio 1.1 (1-3) TSH 0.05 L (0.34-5.60) mcIU/mL 08/23/17 08/23/17 Range/Units 10:47 11:04 WBC (3.5-10.8) 10^3/ul RBC (4.0-5.4) 10^6/ul Hgb (12.0-16.0) g/dl Hct (35-47) % MCV (80-97) fL MCH (27-31) pg MCHC (31-36) g/dl RDW (10.5-15) % Plt Count (150-450) 10^3/ul MPV (7.4-10.4) um3 Neut % (Auto) (38-83) % Lymph % (Auto) (25-47) % Bowman % (Auto) (0-7) % Eos % (Auto) (0-6) % Baso % (Auto) (0-2) % Absolute Neuts (auto) (1.5-7.7) 10^3/ul Absolute Lymphs (auto) (1.0-4.8) 10^3/ul Absolute Monos (auto) (0-0.8) 10^3/ul Absolute Eos (auto) (0-0.6) 10^3/ul Absolute Basos (auto) (0-0.2) 10^3/ul Absolute Nucleated RBC 10^3/ul Nucleated RBC % APTT (26.0-36.3) seconds Sodium (139-145) mmol/L Potassium (3.5-5.0) mmol/L Chloride (101-111) mmol/L Carbon Dioxide (22-32) mmol/L Anion Gap (2-11) mmol/L BUN (6-24) mg/dL Creatinine (0.51-0.95) mg/dL Est GFR ( Amer) (>60) Est GFR (Non-Af Amer) (>60) BUN/Creatinine Ratio (8-20) Glucose (70-100) mg/dL Lactic Acid 1.7 (0.5-2.0) mmol/L Calcium (8.6-10.3) mg/dL Magnesium (1.9-2.7) mg/dL Total Bilirubin (0.2-1.0) mg/dL AST (13-39) U/L ALT (7-52) U/L Alkaline Phosphatase (34-104) U/L Total Creatine Kinase (10-223) U/L CK-MB (CK-2) (0.6-6.3) ng/mL Troponin I (<0.04) ng/mL B-Natriuretic Peptide 53 ( - 100) pg/mL Total Protein (6.4-8.9) g/dL Albumin (3.2-5.2) g/dL Globulin (2-4) g/dL Albumin/Globulin Ratio (1-3) TSH (0.34-5.60) mcIU/mL Result Diagrams: 08/23/17 10:47 08/23/17 10:47 Lab Statement: Any lab studies that have been ordered have been reviewed, and results considered in the medical decision making process. - Radiology CXR Xray Interpretation: No Acute Changes - No radiographic evidence for acute cardiopulmonary abnormality on this single AP view chest x-ray. ED physician reviewed this radiology report. Radiology Interpretation Completed By: Radiologist Rib XR Xray Interpretation: No Acute Changes - No radiographically apparent displaced rib fracture or pneumothorax. If the patient's symptoms persist, follow-up imaging is recommended. ED physician reviewed this radiology report. Radiology Interpretation Completed By: Radiologist - Ultrasound No standard instances Ultrasound Interpretation Completed By: Radiologist - Abdomen US: 1. STATUS POST TOTAL CHOLECYSTECTOMY. 2. STABLE ABDOMINAL AORTIC ANEURYSM. ED physician reviewed this radiology report. - EKG 1056 Cardiac Rate: NL - 69 bpm EKG Rhythm: Sinus Rhythm EKG Interpretation: ST depressions in lead I, V4 and V5; no ST elevations Re-Evaluation - Re-Evaluation First Eval Re-Evaluation Time: 13:20 Comment: Discussed results, pt is doing well. Chest Pain Course/Dx - Course Assessment/Plan: This patient is a 77-year-old female who presents to the emergency room with the chief complaint of right-sided chest wall pain and right upper quadrant pain. Blood test results without any significant abnormality except for sodium 137 and glucose 114. Magnesium level is 1.6 for which the patient was given magnesium IV. TSH is 0.05. Chest x-ray impression: No radiographic evidence of acute cardiopulmonary abnormality. Right upper quadrant ultrasound impression: Status post total cholecystectomy. Stable abdominal aortic aneurysm. Review x-ray impression: No radiographic apparent displacement fracture or pneumothorax. The patient was given Percocet for the pain of the right rib cage area. I do not find any evidence of fractures. The right upper quadrant ultrasound also negative. Therefore I believe that the patient pain is secondary to rib contusion. Therefore the patient will be discharged home with follow-up with primary care physician. I discussed all the findings and test results with the patient. Patient was instructed to return to the emergency room immediately if any of the symptoms return or worsens. Plan of care was discussed with the patient and understands and agrees. All questions were answered at patient satisfaction. There were no further complaints or concerns. Lung exam before discharge: CTA B/L. Good air exchange. No wheezing or crackles heard. CVS: S1 and S2 present. No murmurs appreciated. Patient is alert and oriented x 3. Patient is hemodynamically stable. Patient will be discharged home with follow up PCP in the next 2-3 days - Chest Pain Differential Diagnosis/HQI/PQRI: Acute LA, ACS, Angina, CHF, Chest Wall, GI Disease, Lower Respiratory Infection - Diagnoses Provider Diagnoses: Rib pain on right side Discharge - Sign-Out/Discharge Documenting (check all that apply): Discharge/Admit/Transfer - Discharge Plan Condition: Stable Disposition: HOME Prescriptions: HYDROcodone/ACETAMIN 5-325 MG* [[place] 5-325 TAB*] 1 tab PO Q6H PRN #10 tab MDD 4 tab PRN Reason: Pain Referrals: Helene Rizo [Primary Care Provider] - - Billing Disposition and Condition Condition: STABLE Disposition: HOME The documentation as recorded by the Gege moore Rebecca accurately reflects the service I personally performed and the decisions made by me, Sergei Silverman MD.
[2017-08-23 14:02] VITALS: BP 140/58
== END 2017-08-23 14:02 | disposition home or self-care (01) ==
LOC: ED 10:31
DX: R07.81 Pleurodynia (principal); R07.9 Chest pain, unspecified; R06.02 Shortness of breath; R31.9 Hematuria, unspecified; Z79.899 Other long term (current) drug therapy; F17.210 Nicotine dependence, cigarettes, uncomplicated; E11.9 Type 2 diabetes mellitus without complications; E03.9 Hypothyroidism, unspecified; 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native coronary artery with unspecified angina pectoris; I10 Essential (primary) hypertension; E78.00 Pure hypercholesterolemia, unspecified; I25.2 Old myocardial infarction; K21.9 Gastro-esophageal reflux disease without esophagitis; J44.9 Chronic obstructive pulmonary disease, unspecified; R94.31 Abnormal electrocardiogram [ECG] [EKG]
CPT/HCPCS: 36415; 71045; 76705; 80053; 82550; 82553; 83605; 83735; 83880; 84443; 84484; 85025; 85730; 93005; 96365; 99283; J3475

== ENCOUNTER 2017-09-11 17:43 | Emergency (ER) | payer MEDICAID, MEDICARE, OTHER ==
[2017-09-11 18:50] LABS: ABS Basophils 0 10^3/ul (0-0.2); ABS Eosinophils 0.3 10^3/ul (0-0.6); ABS Lymphocytes 1.9 10^3/ul (1.0-4.8); ABS Monocytes 0.7 10^3/ul (0-0.8); ABS Neutrophils 5.6 10^3/ul (1.5-7.7); ABS Nucleated RBC 0 10^3/ul; Eosinophil % 3.4 % (0-6); Hematocrit 37 % (35-47); Hemoglobin 12.2 g/dl (12.0-16.0); Lymphocyte % 22.5 % (25-47); Mean Corpuscular HGB Conc 33 g/dl (31-36); Mean Corpuscular Hemoglobin 30 pg (27-31); Mean Corpuscular Volume 91 fL (80-97); Mean Platelet Volume 7.4 um3 (7.4-10.4); Nucleated Red Blood Cells % 0; Platelet Count 270 10^3/ul (150-450); Red Blood Count 4.09 10^6/ul (4.00-5.40); Red Cell Distribution Width 15 % (10.5-15); White Blood Count 8.5 10^3/ul (3.5-10.8)
--- NOTE | 2017-09-11 19:26 | RAD ---
INDICATION: Head injury. COMPARISON: Comparison is made with a prior CT of the brain from June 25, 2017. TECHNIQUE: Contiguous axial sections of the brain were obtained from the skull base to the vertex without contrast. FINDINGS: The ventricles, cisterns and sulci are enlarged consistent with age-related atrophy. There are multiple focal areas of decreased density in the subcortical and periventricular white matter suggestive of moderate chronic small vessel ischemic changes. No other focal abnormality or mass effect is seen. There is no evidence for hemorrhage. No fracture is seen. The visualized portion of the paranasal sinuses and mastoid air cells appear clear. IMPRESSION: 1. NO EVIDENCE FOR ACUTE INTRACRANIAL ABNORMALITY. 2. FINDINGS SUGGESTIVE OF MODERATE CHRONIC SMALL VESSEL ISCHEMIC CHANGES.
--- NOTE | 2017-09-11 19:34 | RAD ---
INDICATION: Trauma. COMPARISON: Comparison is made with a prior CT of the cervical spine from June 25, 2017. TECHNIQUE: Contiguous axial sections were obtained from the skull base through the C7 vertebra. Images were reconstructed in the sagittal and coronal planes. FINDINGS: The vertebra are in normal alignment. No prevertebral soft tissue swelling or fracture is seen. At the C3-C4 level there is mild posterior uncinate process spurring and moderate hypertrophic changes within the facet joints. No spinal canal narrowing is seen. There is moderate neural foraminal narrowing on the left side and mild neural foraminal narrowing on the right side. At the C4-C5 level there is no evidence for spinal canal or neural foraminal narrowing. At the C5-C6 level there is mild posterior uncinate process spurring. No spinal canal or neural foraminal narrowing is seen. At the C6-C7 level no spinal canal or neural foraminal narrowing is seen. IMPRESSION: 1. NO EVIDENCE FOR FRACTURE. 2. MILD TO MODERATE CERVICAL SPONDYLOSIS.
[2017-09-11 19:39] LABS: EGFR Non-African American 55.2 (>60)
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
[2017-09-11] MEDS ORDERED: Tetan/Diph/Pertus SYR(Tdap)* 0.5 ML SYR(BOOSTRIX) use SYR IM ONE (19:44)
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
[2017-09-11 21:11] VITALS: BP 154/78
== END 2017-09-11 21:10 | disposition home or self-care (01) ==
LOC: ED 17:43
DX: S00.93XA Contusion of unspecified part of head, initial encounter (principal); S00.212A Abrasion of left eyelid and periocular area, initial encounter; V43.52XA Car driver injured in collision with other type car in traffic accident, initial encounter; Y92.410 Unspecified street and highway as the place of occurrence of the external cause; F17.210 Nicotine dependence, cigarettes, uncomplicated; Z23 Encounter for immunization; M47.812 Spondylosis without myelopathy or radiculopathy, cervical region
CPT/HCPCS: 36415; 70450; 70486; 72125; 80053; 85025; 90471; 90715; 99283

== ENCOUNTER 2017-10-04 13:21 | Emergency (ER) | payer MEDICARE, MEDICAID ==
--- NOTE | 2017-10-04 14:16 | UC ---
Hip/Pelvis Pain - HPI Summary HPI Summary: Patient has a history of frequent falls patient is supposed to use a walker in her home but does not. Patient fall over 6 days ago continued right hip and pelvis pain gait steady ambulating without difficulty at this time. - History Of Current Complaint Chief Complaint: UCLowerExtremity Stated Complaint: HIP INJURY Time Seen by Provider: 10/04/17 14:09 Hx Obtained From: Patient Hx Last Menstrual Period: post menopause ?: No Mechanism Of Injury: fall Onset/Duration: Sudden Onset, Lasting Days - 5-6, Still Present Timing: Constant Pain Intensity: 8 Pain Scale Used: 0-10 Numeric Location: Diffuse - right hip Aggravating Factor(s): Movement Alleviating Factor(s): Nothing - Allergies/Home Medications Allergies/Adverse Reactions: Allergies Allergy/AdvReac Type Severity Reaction Status Date / Time No Known Allergies Allergy Verified 07/19/17 17:26 PMH/Surg Hx/FS Hx/Imm Hx Previously Healthy: No Endocrine History: Hypothyroidism Cardiovascular History: Cardiac Disease, Hypertension Psychological History: Depression - Surgical History Surgical History: Yes Surgery Procedure, Year, and Place: CATARACTS; PARTIAL THYROIDECTOMY; PAVAN; HYSTERECTOMY; T&A; APPENDECTOMY; CYST REMOVED FROM KIDNEY; BACK SURGERY; MELANOMA REMOVED FROM LEFT ARM; NASAL SURGERY - Family History Known Family History: Positive: Unknown, Cardiac Disease - CHF, Other - CANCER - Social History Occupation: Retired Lives: With Family Alcohol Use: None Substance Use Type: None Smoking Status (MU): Light Every Day Tobacco Smoker Type: Cigarettes Amount Used/How Often: 1/2 PPD Length of Time of Smoking/Using Tobacco: 60 years Have You Smoked in the Last Year: Yes When Did the Patient Quit Smoking/Using Tobacco: 2 weeks ago Household Exposure Type: Cigarettes - Immunization History Most Recent Influenza Vaccination: 2014 Most Recent Tetanus Shot: utd Most Recent Pneumonia Vaccination: Within 5 years Review of Systems Constitutional: Negative Skin: Negative Eyes: Negative ENT: Negative Respiratory: Negative Cardiovascular: Negative Gastrointestinal: Negative Genitourinary: Negative Motor: Negative Neurovascular: Negative Musculoskeletal: Arthralgia - right hip Neurological: Negative Psychological: Negative Is Patient Immunocompromised?: No All Other Systems Reviewed And Are Negative: Yes Physical Exam Triage Information Reviewed: Yes Appearance: Well-Appearing, No Pain Distress, Well-Nourished Vital Signs: Initial Vital Signs Temp 98.6 F 10/04/17 13:52 Pulse 68 10/04/17 13:52 Resp 18 10/04/17 13:52 BP 132/75 10/04/17 13:52 Pulse Ox 94 10/04/17 13:52 Vital Signs Reviewed: Yes Eye Exam: Normal Eyes: Positive: Conjunctiva Clear ENT Exam: Normal ENT: Positive: Normal ENT inspection, Hearing grossly normal. Negative: Nasal drainage, Trismus, Muffled voice, Hoarse voice, Dental tenderness Dental Exam: Normal Neck exam: Normal Neck: Positive: Supple, Nontender, No Lymphadenopathy Respiratory Exam: Normal Respiratory: Positive: Chest non-tender, Lungs clear, Normal breath sounds, No respiratory distress, No accessory muscle use Cardiovascular Exam: Normal Cardiovascular: Positive: RRR, No Murmur, Pulses Normal, Brisk Capillary Refill Abdominal Exam: Normal Abdomen Description: Positive: Nontender, No Organomegaly, Soft. Negative: CVA Tenderness (R), CVA Tenderness (L) Bowel Sounds: Positive: Present Musculoskeletal Exam: Normal Musculoskeletal: Positive: Strength Intact, ROM Intact, No Edema Neurological Exam: Normal Neurological: Positive: Alert, Muscle Tone Normal Psychological Exam: Normal Skin Exam: Normal Diagnostics - Laboratory Diagnostic Studies Completed/Ordered: UA +1 leuks - specific gravity greater than 1.03 Will culture urine Hip Injury Course/Dx - Course Course Of Treatment: Use walker, referal made to geriatric specialist, culture urine, increase fluids follow with pcp - Differential Dx/Diagnosis Provider Diagnoses: right hip pain, chonic falls, orthostatic, Discharge - Sign-Out/Discharge Documenting (check all that apply): Discharge/Admit/Transfer - Discharge Plan Condition: Stable Disposition: HOME Patient Education Materials: Contusion in Adults (ED), Hypotension (ED), Syncope in Older Adults (ED) Referrals: Meka Castano DO [Doctor of Osteopathy] - 3 Days Additional Instructions: Please usual walker at all times lying 159/62 hr61 sitting 131/57 hr68 standing 122/60 hr 72 Consider following up with the geriatric specialist. I referred to to the geriatric specialist group down in [place] as an option Dr. Meka Castano is one of the providers there and her phone number is on your discharge instructions - Billing Disposition and Condition Condition: STABLE Disposition: Home
--- NOTE | 2017-10-04 14:44 | RAD ---
HISTORY: fall/pain, right hip pain COMPARISONS: June 18, 2017 VIEWS: 3, Frontal view of the pelvis with frontal and frog-leg views of the right hip FINDINGS: BONE DENSITY: Normal. BONES: There is no displaced fracture. 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 ALIGNMENT: There is no dislocation. SOFT TISSUES: Unremarkable. OTHER FINDINGS: None. IMPRESSION: NO RADIOGRAPHIC EVIDENCE FOR HIP FRACTURE. X-RAYS MAY BE NEGATIVE WITH NONDISPLACED HIP FRACTURE, IF THERE IS PERSISTENT CLINICAL CONCERN, RECOMMEND CONSIDERATION OF MRI. IN THE SETTING OF CONTRAINDICATION TO MRI OR LIMITATION IN EMERGENT ACCESS TO MRI, CT WOULD BE SUGGESTED.
[2017-10-04 14:54] VITALS: BP 159/62
--- NOTE | 2017-10-06 15:24 | UC ---
- Progress Note Progress Note: Urine culture final with no growth. Pt was seen for hip pain and falls - no change of instructions at this time. Discharge - Sign-Out/Discharge Documenting (check all that apply): Post-Discharge Follow Up - Discharge Plan Condition: Stable Disposition: HOME Patient Education Materials: Contusion in Adults (ED), Hypotension (ED), Syncope in Older Adults (ED) Referrals: Meka Castano DO [Doctor of Osteopathy] - 3 Days Additional Instructions: Please usual walker at all times lying 159/62 hr61 sitting 131/57 hr68 standing 122/60 hr 72 Consider following up with the geriatric specialist. I referred to to the geriatric specialist group down in [place] as an option Dr. Meka Castano is one of the providers there and her phone number is on your discharge instructions - Billing Disposition and Condition Condition: STABLE Disposition: Home
== END 2017-10-04 15:45 | disposition home or self-care (01) ==
LOC: UCEAST 13:21
DX: M25.551 Pain in right hip (principal); R29.6 Repeated falls; I95.1 Orthostatic hypotension; I10 Essential (primary) hypertension; F17.210 Nicotine dependence, cigarettes, uncomplicated
CPT/HCPCS: 81003; 87086; 93005; 99213; G0463

== ENCOUNTER 2017-10-11 13:22 | Inpatient (IN) | payer MEDICARE, MEDICAID ==
--- NOTE | 2017-10-11 14:51 | RAD ---
HISTORY: confusion COMPARISONS: September 11, 2017 TECHNIQUE: Multiple contiguous axial CT scans were obtained of the head without intravenous contrast. FINDINGS: HEMORRHAGE/INFARCT: There is no hemorrhage or acute infarct. MASSES/SHIFT: There is no mass or shift. EXTRA-AXIAL SPACES: There are no extra-axial fluid collections. SULCI AND VENTRICLES: The sulci and ventricles are normal in size and position for the patient's stated age. CEREBRUM: There is hypoattenuation of the periventricular and subcortical white matter. BRAINSTEM: There are no focal parenchymal abnormalities. CEREBELLUM: There are no focal parenchymal abnormalities. VESSELS: There is calcification of the cavernous segments of the internal carotid arteries bilaterally and of the distal vertebral arteries bilaterally. PARANASAL SINUSES: The paranasal sinuses are clear. ORBITS: The orbits are unremarkable. BONES AND SOFT TISSUE: No bone or soft tissue abnormalities are noted. OTHER: None IMPRESSION: NO ACUTE INTRACRANIAL PATHOLOGY. CHRONIC SMALL VESSEL ISCHEMIC CHANGES
[2017-10-11] MEDS ORDERED: Tetan/Diph/Pertus SYR(Tdap)* 0.5 ML SYR(BOOSTRIX) use SYR IM ONE (15:03)
--- NOTE | 2017-10-11 15:42 | RAD ---
Indication: Confusion. Single frontal view of the chest performed at 1520 hours was reviewed. Comparison is made with previous exam dated September 04, 2017. No mediastinal shift is noted. Heart is of normal size and configuration. Lung sanchez appear clear. IMPRESSION: NO ACTIVE CARDIOPULMONARY DISEASE IS NOTED.
[2017-10-11 16:13] LABS: ABS Basophils 0.1 10^3/ul (0-0.2); ABS Eosinophils 0.3 10^3/ul (0-0.6); ABS Lymphocytes 2.4 10^3/ul (1.0-4.8); ABS Monocytes 0.7 10^3/ul (0-0.8); ABS Neutrophils 3.5 10^3/ul (1.5-7.7); ABS Nucleated RBC 0 10^3/ul; Eosinophil % 4.4 % (0-6); Hematocrit 35 % (35-47); Hemoglobin 11.7 g/dl (12.0-16.0); Lymphocyte % 34.3 % (25-47); Mean Corpuscular HGB Conc 33 g/dl (31-36); Mean Corpuscular Hemoglobin 29 pg (27-31); Mean Corpuscular Volume 89 fL (80-97); Mean Platelet Volume 7.5 um3 (7.4-10.4); Nucleated Red Blood Cells % 0.1; Platelet Count 327 10^3/ul (150-450); Red Blood Count 3.96 10^6/ul (4.00-5.40); Red Cell Distribution Width 14 % (10.5-15)
[2017-10-11 16:41] LABS: INR 0.98 (0.77-1.02)
--- NOTE | 2017-10-11 16:59 | RAD ---
INDICATION: Fall, neck pain. COMPARISON: Comparison is made with a prior CT of the cervical spine from September 11, 2017. TECHNIQUE: Contiguous axial sections were obtained from the skull base through the T1 vertebra. Images were reconstructed in the sagittal and coronal planes. FINDINGS: There is a [id number] cervical scoliosis convex toward the right side. There is straightening of the cervical spine. The vertebra are otherwise in normal alignment. No prevertebral soft tissue swelling or fracture is seen. At the C3-C4 level there is mild uncinate process spurring and hypertrophic changes within the facet joints. No significant spinal canal narrowing is present. There is mild to moderate bilateral neural foraminal narrowing left greater than right. At the C4-C5 level there is mild uncinate process spurring and hypertrophic changes within the facet joints. No significant spinal canal or neural foraminal narrowing is seen. At the C5-C6 level there is mild posterior uncinate process spurring. No significant spinal canal narrowing is present. There is mild bilateral neural foraminal narrowing. At C6-C7 level there is mild posterior uncinate process spurring. No significant spinal canal or neural foraminal narrowing is seen. There is moderate centrilobular emphysematous change visualized at the lung apices which are clear. IMPRESSION: 1. NO EVIDENCE FOR FRACTURE. 2. MILD TO MODERATE CERVICAL SPONDYLOSIS.
--- NOTE | 2017-10-11 17:05 | RAD ---
Indication: Cervical and thoracic spine pain post falls. Confusion and decreased balance. Comparison: June 26, [address] Technique: Noncontrast CT thoracic spine. Multiplanar reformation. Report: Negative for paravertebral hematoma. Mild predominant anterior column superior endplate compression fracture of the T9 vertebral body with gross trabecular impaction is new compared with the June 25, 2017 exam. Moderate predominant anterior column compression fracture at T10 with gross trabecular impaction and cortical disruption is also new. Severe biconcave predominant anterior column compression fracture at T11 is also new. Severe biconcave compression fracture at L1 is chronic. Mild dorsal bulging of the middle column is noted at the T11 and L1 vertebral bodies without significant compromise of the central canal. Mildly increased thoracic kyphosis at the lower thoracic segment and thoracic lumbar junction without significant spondylolisthesis at any level. IMPRESSION: #. Acute or subacute osteoporotic compression fractures at the T9, T10, and T11 vertebral bodies as described new compared with the June 25, 2017 exam. #. Chronic osteoporotic compression fracture at L1. #. Mild dorsal bulging of the middle column is noted at the T11 and L1 vertebral bodies without significant compromise of the central canal. #. Negative for paravertebral hematoma.
[2017-10-11] MEDS ORDERED: Mouth Piece, Nicotine* 1 EACH CARTRIDGE INH PRN (18:10)
[2017-10-11] MEDS ORDERED: Nicotine Inhaler* 10 MG AMP INH PRN (18:10)
[2017-10-11] MEDS ORDERED: Ondansetron INJ* 2 MG/ML VIAL IV PRN (18:10)
[2017-10-11] MEDS ORDERED: Acetaminophen TAB* 325 MG PO PRN (18:10)
[2017-10-11] MEDS ORDERED: HYDROcodone/ACETAMIN 5-325 MG* 1 TAB PO PRN (18:26)
[2017-10-11] MEDS ORDERED: Albuterol 2.5 MG/3 ML NEB.SOL* (0.083%) INH PRN (18:26)
--- NOTE | 2017-10-11 18:28 | ED ---
Back Pain - HPI Summary HPI Summary: This patient is a 77 year old F presenting to [facility] with a chief complaint of back pain due to frequent falls. Pt states that she cannot pick anything up or bend over. The patient rates the pain 9/10 in severity. Pts PCP knows about her frequent falls and abrasions. Patient reports nausea, back pain, neck pain. Pt has no nurse or aid at home, but her son visits frequently. PMHx of diabetes and HTN. SHx smoking. - History of Current Complaint Chief Complaint: EDGeneral Stated Complaint: GENERAL ILLNESS/WEAKNESS Time Seen by Provider: 10/11/17 14:49 Hx Obtained From: Patient Hx Last Menstrual Period: post menopause Onset/Duration: Gradual Onset Onset/Duration: Started Days Ago - known fall yesterday Timing: Constant Back Pain Location: Is Diffuse Severity Initially: Severe Severity Currently: Severe Pain Intensity: 9 Pain Scale Used: 0-10 Numeric Character: Sharp - Allergies/Home Medications Allergies/Adverse Reactions: Allergies Allergy/AdvReac Type Severity Reaction Status Date / Time No Known Allergies Allergy Verified 10/11/17 13:41 PMH/Surg Hx/FS Hx/Imm Hx Endocrine/Hematology History: Reports: Hx Diabetes - hypoglycemic, Hx Thyroid Disease - hypothyroid Denies: Hx Systemic Lupus Erythematosus Cardiovascular History: Reports: Hx Angina, Hx Coronary Artery Disease, Hx Hypercholesterolemia, Hx Hypertension, Hx Myocardial Infarction, Hx Rheumatic Fever Denies: Hx Congestive Heart Failure, Hx Pacemaker/ICD Comment Only: Other Cardiovascular Problems/Disorders - heart murmer since 16 years old Respiratory History: Reports: Hx Chronic Obstructive Pulmonary Disease (COPD), Hx Seasonal Allergies Denies: Hx Asthma, Other Respiratory Problems/Disorders GI History: Reports: Hx Gastroesophageal Reflux Disease, Hx Hiatal Hernia, Other GI Disorders - hiatal hernia Denies: Hx Ulcer History: Reports: Hx Renal Disease - hx of cyst removal, Other Problems/ Disorders - cysts removed from kidney Denies: Hx Dialysis Musculoskeletal History: Reports: Hx Arthritis - BILATERAL KNEES, BACK, BILATERAL HANDS, Hx Back Problems Denies: Hx Rheumatoid Arthritis Sensory History: Reports: Hx Contacts or Glasses - glasses Denies: Hx Hearing Aid Opthamlomology History: Reports: Hx Contacts or Glasses - glasses Neurological History: Reports: Hx Headaches, Hx Migraine Denies: Hx Dementia, Hx Seizures Psychiatric History: Reports: Hx Anxiety, Hx Depression Denies: Hx Panic Disorder, Hx Substance Abuse - Cancer History Cancer Type, Location and Year: Reports tumor in pelvis , melanoma, Hx Chemotherapy: No Hx Radiation Therapy: No Hx Palliative Cancer Treatment: No - Surgical History Surgery Procedure, Year, and Place: CATARACTS; PARTIAL THYROIDECTOMY; PAVAN; HYSTERECTOMY; T&A; APPENDECTOMY; CYST REMOVED FROM KIDNEY; BACK SURGERY; MELANOMA REMOVED FROM LEFT ARM; NASAL SURGERY Hx Anesthesia Reactions: No - Immunization History Date of Tetanus Vaccine: Unk Date of Influenza Vaccine: 01/09/13 Infectious Disease History: No Infectious Disease History: Reports: Hx Shingles Denies: Hx Hepatitis, Hx Human Immunodeficiency Virus (HIV), History Other Infectious Disease, Traveled Outside the [place] in Last 30 Days - Family History Known Family History: Positive: Cardiac Disease - CHF, Other - CANCER - Social History Alcohol Use: None Substance Use Type: Reports: None Smoking Status (MU): Light Every Day Tobacco Smoker Type: Cigarettes Amount Used/How Often: 1/2 PPD Length of Time of Smoking/Using Tobacco: 60 years Have You Smoked in the Last Year: Yes Review of Systems Positive: Nausea Positive: Other - back and neck pain Positive: Bruising - many locations due to frequent falls, Other - scrapes All Other Systems Reviewed And Are Negative: Yes Physical Exam - Summary Physical Exam Summary: Appearance: Well appearing, no pain distress Skin: warm, dry, reflects adequate perfusion. Skin tear on the left hand, left bicep, and many other locations on her body. Abrasion to the right thumb with bruising. Abrasion on the left side of her nose. Lumbar surgical scarring. Head/face: abrasion on nose Eyes: EOMI, JOHNNIE ENT: normal. Moist mucous membranes. Neck: supple, non-tender Respiratory: CTA, breath sounds present. Lung sounds diminished, no wheezing, rales, or rhonchi Cardiovascular: RRR, pulses symmetrical Abdomen: non-tender, soft Bowel Sounds: present Musculoskeletal: normal, strength/ROM intact. Right hip pain. Mid-lower thoracic pain on the midline. No cervical tenderness. Able to bear own weight but cannot walk due to instability and weakness. Global weakness without focality. Neuro: normal, sensory motor intact, A&Ox3 Triage Information Reviewed: Yes Vital Signs On Initial Exam: Initial Vitals Temp Pulse Resp BP Pulse Ox 97.1 F 73 20 145/67 95 10/11/17 13:37 10/11/17 13:37 10/11/17 13:37 10/11/17 13:37 10/11/17 13:37 Vital Signs Reviewed: Yes Diagnostics - Vital Signs Vital Signs Temp Pulse Resp BP Pulse Ox 10/11/17 15:01 15 10/11/17 14:57 66 18 140/66 95 10/11/17 14:54 66 93 10/11/17 13:37 97.1 F 73 20 145/67 95 - Laboratory Lab Results: Lab Results 10/11/17 10/11/17 10/11/17 Range/Units 16:02 16:02 16:02 WBC 7.0 (3.5-10.8) 10^3/ul RBC 3.96 L (4.00-5.40) 10^6/ul Hgb 11.7 L (12.0-16.0) g/dl Hct 35 (35-47) % MCV 89 (80-97) fL MCH 29 (27-31) pg MCHC 33 (31-36) g/dl RDW 14 (10.5-15) % Plt Count 327 (150-450) 10^3/ul MPV 7.5 (7.4-10.4) um3 Neut % (Auto) 50.4 (38-83) % Lymph % (Auto) 34.3 (25-47) % [place] % (Auto) 9.6 H (0-7) % Eos % (Auto) 4.4 (0-6) % Baso % (Auto) 1.3 (0-2) % Absolute Neuts (auto) 3.5 (1.5-7.7) 10^3/ul Absolute Lymphs (auto) 2.4 (1.0-4.8) 10^3/ul Absolute Monos (auto) 0.7 (0-0.8) 10^3/ul Absolute Eos (auto) 0.3 (0-0.6) 10^3/ul Absolute Basos (auto) 0.1 (0-0.2) 10^3/ul Absolute Nucleated RBC 0 10^3/ul Nucleated RBC % 0.1 INR (Anticoag Therapy) 0.98 (0.77-1.02) Sodium 138 (135-145) mmol/L Potassium 3.8 (3.5-5.0) mmol/L Chloride 103 (101-111) mmol/L Carbon Dioxide 28 (22-32) mmol/L Anion Gap 7 (2-11) mmol/L BUN 11 (6-24) mg/dL Creatinine 0.71 (0.51-0.95) mg/dL Est GFR ( Amer) 96.8 (>60) Est GFR (Non-Af Amer) 80.0 (>60) BUN/Creatinine Ratio 15.5 (8-20) Glucose 76 (70-100) mg/dL Lactic Acid (0.5-2.0) mmol/L Calcium 9.4 (8.6-10.3) mg/dL Total Bilirubin 0.40 (0.2-1.0) mg/dL AST 12 L (13-39) U/L ALT 8 (7-52) U/L Alkaline Phosphatase 164 H (34-104) U/L Total Creatine Kinase 115 (10-223) U/L Troponin I 0.01 (<0.04) ng/mL Total Protein 6.7 (6.4-8.9) g/dL Albumin 3.5 (3.2-5.2) g/dL Globulin 3.2 (2-4) g/dL Albumin/Globulin Ratio 1.1 (1-3) TSH 0.03 L (0.34-5.60) mcIU/mL Acetaminophen < 15 mcg/mL Serum Alcohol < 10 (<10) mg/dL 10/11/17 Range/Units 16:02 WBC (3.5-10.8) 10^3/ul RBC (4.00-5.40) 10^6/ul Hgb (12.0-16.0) g/dl Hct (35-47) % MCV (80-97) fL MCH (27-31) pg MCHC (31-36) g/dl RDW (10.5-15) % Plt Count (150-450) 10^3/ul MPV (7.4-10.4) um3 Neut % (Auto) (38-83) % Lymph % (Auto) (25-47) % [place] % (Auto) (0-7) % Eos % (Auto) (0-6) % Baso % (Auto) (0-2) % Absolute Neuts (auto) (1.5-7.7) 10^3/ul Absolute Lymphs (auto) (1.0-4.8) 10^3/ul Absolute Monos (auto) (0-0.8) 10^3/ul Absolute Eos (auto) (0-0.6) 10^3/ul Absolute Basos (auto) (0-0.2) 10^3/ul Absolute Nucleated RBC 10^3/ul Nucleated RBC % INR (Anticoag Therapy) (0.77-1.02) Sodium (135-145) mmol/L Potassium (3.5-5.0) mmol/L Chloride (101-111) mmol/L Carbon Dioxide (22-32) mmol/L Anion Gap (2-11) mmol/L BUN (6-24) mg/dL Creatinine (0.51-0.95) mg/dL Est GFR ( Amer) (>60) Est GFR (Non-Af Amer) (>60) BUN/Creatinine Ratio (8-20) Glucose (70-100) mg/dL Lactic Acid 0.7 (0.5-2.0) mmol/L Calcium (8.6-10.3) mg/dL Total Bilirubin (0.2-1.0) mg/dL AST (13-39) U/L ALT (7-52) U/L Alkaline Phosphatase (34-104) U/L Total Creatine Kinase (10-223) U/L Troponin I (<0.04) ng/mL Total Protein (6.4-8.9) g/dL Albumin (3.2-5.2) g/dL Globulin (2-4) g/dL Albumin/Globulin Ratio (1-3) TSH (0.34-5.60) mcIU/mL Acetaminophen mcg/mL Serum Alcohol (<10) mg/dL Result Diagrams: 10/11/17 16:02 10/11/17 16:02 Lab Statement: Any lab studies that have been ordered have been reviewed, and results considered in the medical decision making process. - Radiology CXR Radiology Interpretation Completed By: Radiologist - NO ACTIVE CARDIOPULMONARY DISEASE IS NOTED. ER Physician reviewed this report - CT Brain CT Interpretation Completed By: Radiologist - NO ACUTE INTRACRANIAL PATHOLOGY. CHRONIC SMALL VESSEL ISCHEMIC CHANGES ER Physician reviewed this report C-Spine CT Interpretation Completed By: Radiologist - 1. NO EVIDENCE FOR FRACTURE. 2. MILD TO MODERATE CERVICAL SPONDYLOSIS. ER Physician Reviewed this report T-Spine CT Interpretation Completed By: Radiologist - Acute or subacute osteoporotic compression fractures at the T9, T10, and T11 vertebral bodies as described new compared with the June 25, 2017 exam. #. Chronic osteoporotic compression fracture at L1. #. Mild dorsal bulging of the middle column is noted at the T11 and L1 vertebral bodies without significant compromise of the central canal. #. Negative for paravertebral hematoma. ER Physician reviewed this report - EKG 14:52 Cardiac Rate: NL - 66 bpm EKG Interpretation: 1st degree AV block, minimal ST depression V3-V5, lead I, nml axis Back Pain Course/Dx - Course Course Of Treatment: Patient with generalized weakness and found to have mid thoracic pain. This appeared acute any CT was performed. She has multiple compression fractures through this area. She is able to stand but cannot walk or stand up straight. Head CT was negative. She will require admission, and likely evaluation by spine surgery. She was treated for discomfort and admitted to the hospitalist service. - Diagnoses Provider Diagnoses: Multiple falls, Thoracic compression fracture, Generalized weakness - Provider Notifications Discussed Care Of Patient With: Garland Woodson Time Discussed With Above Provider: 16:30 Instructed by Provider To: Admit As Inpatient Discharge - Sign-Out/Discharge Documenting (check all that apply): Patient Departure - Admit - Discharge Plan Condition: Fair Disposition: ADMITTED TO [facility] Referrals: Helene Rizo [Primary Care Provider] - - Billing Disposition and Condition Condition: FAIR Disposition: Admitted to [facility]
[2017-10-11 19:01] LABS: Urine Appearance Clear; Urine Blood Negative (Negative); Urine Color Straw; Urine Ketones Negative (Negative); Urine Protein Negative (Negative); Urine Red Blood Cell Absent (Absent); Urine Specific Gravity 1.004 (1.010-1.030); Urine Urobilinogen Negative (Negative); Urine White Blood Cell Absent (Absent)
--- NOTE | 2017-10-11 19:37 | RAD ---
INDICATION: Ataxia. COMPARISON: Comparison is made with a prior CT of the brain from October 11, 2017 and a prior MRI of the brain from February 06, 2016. TECHNIQUE: Sagittal T1, axial T1, T2, susceptibility, FLAIR and diffusion weighted images were obtained. FINDINGS: The ventricles, cisterns and sulci appear prominent consistent with age-related atrophy. There are prominent areas of increased signal intensity on T2-weighted images present within the subcortical and periventricular white matter most consistent with moderate to severe chronic small vessel ischemic changes. No mass effect is present. No areas of restricted diffusion are present. There is no evidence for infarct or hemorrhage. The paranasal sinuses and mastoid air cells appear clear. IMPRESSION: 1. NO EVIDENCE FOR ACUTE INTRACRANIAL ABNORMALITY. 2. FINDINGS MOST CONSISTENT WITH MODERATE TO SEVERE CHRONIC SMALL VESSEL ISCHEMIC CHANGES.
[2017-10-11] MEDS ORDERED: Lidocaine Patch REMOVE* 1 NOTE MISC SCH (21:00)
[2017-10-11] MEDS: Lidocaine Patch REMOVE* 1 NOTE MISC PATCH OFF SCH (22:11)
[2017-10-11] MEDS: oxyCODONE SR TAB(*) 15 MG TAB.SR PO SCH (22:16)
[2017-10-11] MEDS: Heparin VIAL(*) 5000 UNITS/ML VIAL (FIVE THOUSAND) SUBCUT SCH (22:17)
[2017-10-11] MEDS: Gabapentin CAP(*) 100 MG PO SCH (22:17)
--- NOTE | 2017-10-11 22:33 | HP ---
CC: Helene Rizo NP * ADMISSION HISTORY AND PHYSICAL: DATE OF ADMISSION: 10/11/17 PRIMARY CARE PROVIDER: Helene Rizo NP MY ATTENDING WHILE IN THE HOSPITAL: Rex Montenegro MD * (DICTATED BY DALIA ALEX) CHIEF COMPLAINT: Frequent falls, increased confusion. HISTORY OF PRESENT ILLNESS: Ms. Nagy is a 77-year-old female with a past medical history significant for COPD, hypertension, hyperlipidemia, dementia, coronary artery disease, vertigo, peripheral neuropathy, and postprocedural hypothyroidism who presents to the hospital for the second time this year with increased falls and confusion. The patient was brought in by her daughter because she has had 3 falls in the bathroom within the last day sustaining several minor injuries with increased pain in her back. The patient has chronic back pain with known left- sided radiculopathy present before her previous admission. The patient also had a known compression fracture at T10. The patient is a very poor historian, initially stated the reason she came in was because her feet hurt, but then asked how long her feet had been hurting, she stated for years and is unable to tell or characterize this pain. The patient states that she has felt weak particularly in her right hip. The patient also states that she has not had a bowel movement in days and has been having frequent dysuria with incontinence, but no incontinence of stool. The patient's daughter states that the patient has been having a sore throat and has had difficulty swallowing. The patient claims she has lost 45 pounds in the past year. The patient denies fevers, chills, nausea, vomiting, chest pain , shortness of breath, abdominal pain. The patient denies any recent changes in medication or diet. The patient's daughter states that her mother has a pill box that she lays out, but that she believes her mother has been taking pills from the bottles as well. The patient has been more confused having hallucinations and talking to people who have been for years according to the patient's daughter. The patient has been having worsening dementia with a significant decline over the past several days. The patient complains intermittently of pain from her back wrapping around her side and during the interview complains mainly of right-sided pain in her lower back radiating to her upper leg. The patient in the emergency department had a thoracic spine CT which showed new compression fractures at T9, 10, and 11, as well as a chronic fracture at L1 with mid dorsal bulging of the middle column noted at T11 and 1 without significant canal stenosis. The patient had a brain CT which was normal. Due to concern for frequent falls and worsening confusion, we were asked to evaluate for admission. PAST MEDICAL HISTORY: COPD with emphysema; diabetes mellitus type 2, diet controlled; idiopathic peripheral neuropathy; hypertension; hyperlipidemia; postprocedural hypothyroidism; GERD; anxiety; vertigo; coronary artery disease; dementia. PAST SURGICAL HISTORY: Partial thyroidectomy, cholecystectomy, appendectomy, hysterectomy, right side kidney surgery, melanoma removal, T and A. MEDICATIONS: On admission: 1. Venlafaxine 150 mg p.o. daily. 2. Aspirin 81 mg p.o. daily. 3. Bupropion 300 mg p.o. daily. 4. Amlodipine 2.5 mg p.o. daily. 5. Ranitidine 300 mg p.o. daily. 6. Advair 250/50 mcg 1 puff inhalation b.i.d. 7. Nexium 40 mg p.o. daily. 8. Neurontin 100 mg p.o. b.i.d. 9. Levothyroxine 88 mcg p.o. daily. 10. Sumatriptan 50 mg p.o. b.i.d. as needed. 11. Vitamin D 1000 units p.o. daily. 12. Lisinopril 5 mg p.o. daily. 13. Trazodone 50 mg p.o. at bedtime as needed. 14. Albuterol 2.5 mg inhalation q.6 hours as needed. 15. [place] 5/325 mg 1 tab p.o. q.6 hours as needed. 16. OxyContin 30 mg p.o. q.12 hours. ALLERGIES: No known drug allergies. FAMILY HISTORY: The patient's mother of unknown cancer. The patient's father of CHF. SOCIAL HISTORY: The patient is an active smoker, smoking 3 to 4 cigarettes a day. The patient denies alcohol or drug abuse. 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 The patient has twice and has 6 children. The patient would like her daughter, Chris Martinez, to be her surrogate decision maker. REVIEW OF SYSTEMS: A 14-point review of systems was reviewed and is negative except as above. PHYSICAL EXAMINATION GENERAL: The patient is a 77-year-old female with a small abrasion with blood on her face. VITAL SIGNS: At the time of evaluation, temperature 97.1, pulse rate 66, respiratory rate 18, oxygen saturation 95% on room air, blood pressure 140/66. HEENT: Head: Normocephalic. No crepitus or step-offs or ecchymosis on the head. Small open area between the eyes. Sclerae anicteric. No conjunctival injection. Nasal mucosa moist. Oral mucosa moist. No pharyngeal erythema, discharge, or exudate. NECK: Supple, nontender. No lymphadenopathy. No carotid bruits auscultated. No stepoff or crepitus over the spinous processes. No JVD. RESPIRATORY: Diminished throughout. Slight expiratory wheezes particularly in the lower lobes. CARDIAC: Regular rate and rhythm. No clicks, murmurs, gallops, or rubs. Pulses 2+ in the bilateral dorsalis pedis, posterior tibialis, and radial areas. No bilateral lower extremity edema noted. ABDOMEN: Soft, nontender, nondistended. Bowel sounds present, normoactive in all 4 quadrants. No hepatosplenomegaly. No abdominal bruits auscultated. GENITOURINARY: No suprapubic or CVA tenderness. NEUROLOGIC: The patient is alert and oriented to person and place, not to time. Cranial nerves II through XII intact. No nystagmus. Cerebellar testing performed without difficulty. Strength preserved in the bilateral upper extremities. Sensation to light touch preserved in the bilateral upper and lower extremities distally and proximally. Strength 5/5 in the right lower extremity. Straight leg raise negative. Strength 4/5 with abduction and flexion in the left lower extremity. Reflexes 2+ in the bilateral biceps and patellar areas, 1+ in bilateral Achilles areas. Babinski is downgoing bilaterally. The patient ambulates with difficulty with significant retropulsion and with each step seeming to fall to the left without intervention. SKIN: Skin tear covered with bandage on the left upper forearm. Skin tear on the right upper arm. Significant number of other small bruises, open area on the face as above. No other significant rashes. PSYCHIATRIC: Pleasant and cooperative. LABORATORY DATA: White blood cell count 7.0, hemoglobin 11.7, platelet count 327,000. INR 0.98. Sodium 138, potassium 3.8, chloride 103, carbon dioxide 28 , anion gap 7, BUN 11, creatinine 0.71, glucose 76, lactic acid 0.7, calcium 9.4 , bilirubin 0.4, AST 12, ALT 8, alkaline phosphatase 164, creatine kinase 115. Troponin I of 0.01. Protein 6.7. Albumin 3.5. Globulin 3.2. TSH 0.03. Tylenol less than 15. Alcohol less than 10. STUDIES: Brain CT read as no acute intracranial pathology. Chronic small vessel ischemic changes. Chest x-ray read as no active cardiopulmonary disease. Thoracic spine CT read as acute or subacute osteoporotic compression fractures at T9, T10, and T11. Vertebral bodies as described, new compared to 06/25/17 exam. Chronic osteoporotic compression fracture at L1. Mild dorsal bulging of the middle column noted at T11 and L1. Vertebral bodies without significant impinging on the central canal. Negative for apparent vertebral hematoma. Cervical spine CT read as no evidence for fracture. Mild to moderate cervical spondylosis. Electrocardiogram shows normal sinus rhythm, left axis deviation. No hypertrophy, enlargement. No ST segment abnormalities except for T-wave inversion in lead 3. [place] of 214, QTC of 432, rate of 66. No other abnormalities. ASSESSMENT AND PLAN/IMPRESSION: Ms. Nagy is a 77-year-old female with past medical history significant for chronic obstructive pulmonary disease, hypertension, hyperlipidemia, dementia, coronary artery disease, and frequent falls who presents with worsening falls, worsening confusion including hallucinations, who is being admitted to the hospital with concern for new compression fractures as well as increasing complaints of falls and confusion with ataxia on exam concerning for a possible neurologic process. 1. Frequent falls. The cause of the patient's falls are likely multifactorial. The patient has recently in May had her polypharmacy burden reduced with decreasing of her pain medication. We will at this time discontinue the patient's trazodone as this is her third antidepressive agent, which may be contributing to delirium and falls. The patient will be seen by Physical Therapy and Occupational Therapy to see if they can help with her balance. The patient has no difficulty with cerebellar testing on finger-to- nose exam or rapid alternating movement exam; however, she is significantly ataxic with ambulation including significant retropulsion. I will order an MRI of the brain and a neurological consult. The patient's peripheral neuropathy may be contributing to this as well. The patient also may be overdosing on her levothyroxine, which may be leading to an increase in her confusion and agitation. The patient was found to be orthostatic at convenient care several days ago. We will repeat this test. However, the patient does not lose consciousness with her falls and this is not likely to be the sole underlying cause to her falling. The patient may need subacute rehab to help restore functional capacity. 2. New compression fractures of the spine. The patient has 3 new compression fractures of her thoracic spine that does not appear to be narrowing the canal. However, I will obtain a repeat neurosurgical consultation for consideration of bracing and the utility of possible surgery or MRI. Pain control with lidocaine patch and the patient's home medications including OxyContin, hydrocodone, and gabapentin. 3. Hypothyroidism, postsurgical. The patient had a previous partial thyroidectomy. We will add on T3 and T4 to assess her low TSH. We will adjust the patient's levothyroxine appropriately. It is very likely the patient has been taking excess of her thyroid hormone. 4. Chronic obstructive pulmonary disease. Continue home inhalers. 5. Hypertension. The patient is normotensive. Continue amlodipine and lisinopril. 6. Anxiety and depression. Continue venlafaxine and bupropion. Discontinue trazodone. Recommend weaning off agent as tolerated. 7. Dysuria. The patient's urinalysis is pending. A urinary tract infection may very well be contributing to this. Blood cultures are pending. The patient shows no other signs of sepsis. 8. Coronary artery disease. Continue aspirin. The patient follows with Cardiology outpatient. The patient is not having chest pain or ischemic signs on her EKG. The patient at this point in life will not likely benefit from statin therapy. 9. Neuropathy. Continue gabapentin. This may be contributing to the patient' s falls of unknown cause. 10. Diabetes mellitus, diet controlled. 11. DVT prophylaxis: Heparin subcu. 12. Code status: The patient would like to be a full code. The patient's surrogate decision maker is her daughter, Chris Martinez. 13. FEN: There is concern for dysphagia. The patient will have a bedside swallow evaluation with nursing and will either follow up with speech therapy or have a consistent carbohydrate diet. After that, the patient does not need intravenous fluids. 14. Disposition: The patient will be admitted inpatient. The patient may need placement due to frequent falls and inability to handle medications at home. TIME SPENT: Approximately 75 minutes were spent on this admission, 45 of which was spent [id number] with the patient and family obtaining history and physical and discussing the treatment plan. This plan has been discussed with my attending, Dr. Rex Montenegro, and he is in agreement. DALIA ALEX [id number]/CPS #: [id number] [place]
[2017-10-12] MEDS: Mometasone/Formoter 200/5 MDI INH SCH ×3 (00:23→20:53)
[2017-10-12] MEDS: Levothyroxine TAB* 88 MCG TAB PO SCH (06:13)
[2017-10-12] MEDS: Heparin VIAL(*) 5000 UNITS/ML VIAL (FIVE THOUSAND) SUBCUT SCH ×3 (06:13→22:29)
[2017-10-12 06:38] LABS: ABS Basophils 0.1 10^3/ul (0-0.2); ABS Eosinophils 0.3 10^3/ul (0-0.6); ABS Lymphocytes 2.5 10^3/ul (1.0-4.8); ABS Monocytes 0.6 10^3/ul (0-0.8); ABS Neutrophils 2.8 10^3/ul (1.5-7.7); ABS Nucleated RBC 0 10^3/ul; Eosinophil % 4.6 % (0-6); Hematocrit 35 % (35-47); Hemoglobin 11.7 g/dl (12.0-16.0); Lymphocyte % 39.6 % (25-47); Mean Corpuscular HGB Conc 34 g/dl (31-36); Mean Corpuscular Hemoglobin 30 pg (27-31); Mean Corpuscular Volume 89 fL (80-97); Mean Platelet Volume 7.7 um3 (7.4-10.4); Nucleated Red Blood Cells % 0; Platelet Count 309 10^3/ul (150-450); Red Cell Distribution Width 14 % (10.5-15); White Blood Count 6.2 10^3/ul (3.5-10.8)
[2017-10-12] MEDS ORDERED: Magnesium Sulfate IV* 2 GM in NS 0.9% 100 ML* 100 ML IVPB ONE (07:15)
[2017-10-12 07:20] LABS: EGFR Non-African American 90.2 (>60)
[2017-10-12] MEDS: Aspirin EC TAB* 81 MG TAB.EC PO SCH (08:27)
[2017-10-12] MEDS: Venlafaxine EXT RELEASE CAP* 75 MG PO SCH (08:27)
[2017-10-12] MEDS: Cholecalciferol TAB* 1000 UNITS PO SCH (08:27)
[2017-10-12] MEDS: Gabapentin CAP(*) 100 MG PO SCH ×2 (08:27→22:28)
[2017-10-12] MEDS: Famotidine TAB* 20 MG PO SCH (08:27)
[2017-10-12] MEDS: BuPROPion XL* 300 MG TAB.XL PO SCH (08:27)
[2017-10-12] MEDS: Omeprazole CAP* 20 MG PO SCH (08:28)
[2017-10-12] MEDS: Lisinopril TAB* 5 MG PO SCH (08:28)
[2017-10-12] MEDS: amLODIPine TAB* 5 MG PO SCH (08:29)
[2017-10-12] MEDS: Lidocaine PATCH 5%* 1 PATCH TRANSDERM SCH (08:30)
--- NOTE | 2017-10-12 12:13 | PN ---
Subjective Date of Service: 10/12/17 Interval History: Patient is feeling well this AM. Denies pain in back when resting. Denies dizziness, Chest Pain, F/C, N/V, abdominal pain, diarrhea, dysuria, weakness, spasms, or other pain. Is A/Ox1, is anxious to go home. Family History: Unchanged from Admission Social History: Unchanged from Admission Past Medical History: Unchanged from Admission Objective Active Medications: Acetaminophen (Tylenol Tab*) 650 mg PO Q6H PRN PRN Reason: FEVER/PAIN Hydrocodone Bitart/Acetaminophen ([place] 5-325 Tab*) 1 tab PO Q6H PRN PRN Reason: PAIN Albuterol (Ventolin 2.5 Mg/3 Ml Neb.Tuyet*) 2.5 mg INH Q6H PRN PRN Reason: SHORTNESS OF BREATH Amlodipine Besylate (Norvasc Tab*) 2.5 mg PO DAILY [facility] Last Admin: 10/12/17 08:29 Dose: 2.5 mg Aspirin (Aspirin Ec Tab*) 81 mg PO DAILY [facility] Last Admin: 10/12/17 08:27 Dose: 81 mg Bupropion HCl (Bupropion Xl*) 300 mg PO DAILY [facility] Last Admin: 10/12/17 08:27 Dose: 300 mg Cholecalciferol (Vitamin D Tab*) 1,000 units PO DAILY [facility] Last Admin: 10/12/17 08:27 Dose: 1,000 units Device (Nicotine Mouth Piece*) 1 each INH .USE WITH NICOTROL PRN PRN Reason: CRAVING Famotidine (Pepcid Tab*) 40 mg PO DAILY WITH MEAL [facility]; Protocol Last Admin: 10/12/17 08:27 Dose: 40 mg Gabapentin (Neurontin Cap(*)) 100 mg PO BID [facility] Last Admin: 10/12/17 08:27 Dose: 100 mg Heparin Sodium (Porcine) (Heparin Vial(*)) 5,000 units SUBCUT Q8HR [facility] Last Admin: 10/12/17 06:13 Dose: 5,000 units Levothyroxine Sodium (Synthroid Tab*) 88 mcg PO 0600 [facility] Last Admin: 10/12/17 06:13 Dose: 88 mcg Lidocaine (Lidoderm 5% Patch*) 1 patch TRANSDERM DAILY [facility] Last Admin: 10/12/17 08:30 Dose: 1 patch Lisinopril (Prinivil Tab*) 5 mg PO DAILY [facility] Last Admin: 10/12/17 08:28 Dose: 5 mg Melatonin (Melatonin) 3 mg PO BEDTIME PRN PRN Reason: INSOMNIA Mometasone Furoate/Formoterol Fumar (Dulera 200/5 Mdi*) 2 puff INH BID [facility] Last Admin: 10/12/17 09:32 Dose: 2 puff Nicotine (Nicotine Inhaler*) 10 mg INH Q2H PRN PRN Reason: CRAVING Omeprazole (Prilosec Cap*) 20 mg PO DAILY [facility]; Protocol Last Admin: 10/12/17 08:28 Dose: 20 mg Ondansetron HCl (Zofran Inj*) 4 mg IV Q6H PRN PRN Reason: NAUSEA Oxycodone HCl (Oxycontin(*)) 30 mg PO Q12H [facility] Last Admin: 10/11/17 22:16 Dose: 30 mg Pharmacy Profile Note (Lidocaine Patch Remove*) 1 note PATCH OFF 2100 [facility] Last Admin: 10/11/17 22:11 Dose: Not Given Venlafaxine HCl (Effexor Xr Cap*) 150 mg PO DAILY [facility] Last Admin: 10/12/17 08:27 Dose: 150 mg Vital Signs - 8 hr 10/12/17 10/12/17 10/12/17 08:27 08:28 09:36 Temperature 98.0 F Pulse Rate 65 65 Respiratory 20 18 14 Rate Blood Pressure 129/60 (mmHg) O2 Sat by Pulse 100 97 Oximetry Oxygen Devices in Use Now: None Appearance: Patient is a 77yo female who appears stated age and is sitting in the bed in [facility]. Eyes: No Scleral Icterus, PERRLA Ears/Nose/Mouth/Throat: NL Teeth, Lips, Gums, Clear Oropharnyx, Mucous Membranes Moist Neck: NL Appearance and Movements; NL JVP, Trachea Midline Respiratory: Symmetrical Chest Expansion and Respiratory Effort, Clear to Auscultation Cardiovascular: NL Sounds; No Murmurs; No JVD, RRR, No Edema Abdominal: NL Sounds; No Tenderness; No Distention, No Hepatosplenomegaly Lymphatic: No Cervical Adenopathy Extremities: No Edema, No Clubbing, Cyanosis Skin: No Nodules or Sclerosis, - - Minor unchanged skin tears and bruising. Neurological: NL Sensation, - - Left leg weakness, A/Ox1. Unchanged from yesterday. Result Diagrams: 10/12/17 06:24 10/12/17 06:24 Additional Lab and Data: Lab Results 10/11/17 10/11/17 10/11/17 Range/Units 16:02 16:02 16:02 WBC 7.0 (3.5-10.8) 10^3/ul RBC 3.96 L (4.00-5.40) 10^6/ul Hgb 11.7 L (12.0-16.0) g/dl Hct 35 (35-47) % MCV 89 (80-97) fL MCH 29 (27-31) pg MCHC 33 (31-36) g/dl RDW 14 (10.5-15) % Plt Count 327 (150-450) 10^3/ul MPV 7.5 (7.4-10.4) um3 Neut % (Auto) 50.4 (38-83) % Lymph % (Auto) 34.3 (25-47) % [place] % (Auto) 9.6 H (0-7) % Eos % (Auto) 4.4 (0-6) % Baso % (Auto) 1.3 (0-2) % Absolute Neuts (auto) 3.5 (1.5-7.7) 10^3/ul Absolute Lymphs (auto) 2.4 (1.0-4.8) 10^3/ul Absolute Monos (auto) 0.7 (0-0.8) 10^3/ul Absolute Eos (auto) 0.3 (0-0.6) 10^3/ul Absolute Basos (auto) 0.1 (0-0.2) 10^3/ul Absolute Nucleated RBC 0 10^3/ul Nucleated RBC % 0.1 INR (Anticoag Therapy) 0.98 (0.77-1.02) Sodium 138 (135-145) mmol/L Potassium 3.8 (3.5-5.0) mmol/L Chloride 103 (101-111) mmol/L Carbon Dioxide 28 (22-32) mmol/L Anion Gap 7 (2-11) mmol/L BUN 11 (6-24) mg/dL Creatinine 0.71 (0.51-0.95) mg/dL Est GFR ( Amer) 96.8 (>60) Est GFR (Non-Af Amer) 80.0 (>60) BUN/Creatinine Ratio 15.5 (8-20) Glucose 76 (70-100) mg/dL Lactic Acid (0.5-2.0) mmol/L Calcium 9.4 (8.6-10.3) mg/dL Total Bilirubin 0.40 (0.2-1.0) mg/dL AST 12 L (13-39) U/L ALT 8 (7-52) U/L Alkaline Phosphatase 164 H (34-104) U/L Total Creatine Kinase 115 (10-223) U/L Troponin I 0.01 (<0.04) ng/mL Total Protein 6.7 (6.4-8.9) g/dL Albumin 3.5 (3.2-5.2) g/dL Globulin 3.2 (2-4) g/dL Albumin/Globulin Ratio 1.1 (1-3) TSH 0.03 L (0.34-5.60) mcIU/mL Acetaminophen < 15 mcg/mL Serum Alcohol < 10 (<10) mg/dL 10/11/17 Range/Units 16:02 WBC (3.5-10.8) 10^3/ul RBC (4.00-5.40) 10^6/ul Hgb (12.0-16.0) g/dl Hct (35-47) % MCV (80-97) fL MCH (27-31) pg MCHC (31-36) g/dl RDW (10.5-15) % Plt Count (150-450) 10^3/ul MPV (7.4-10.4) um3 Neut % (Auto) (38-83) % Lymph % (Auto) (25-47) % [place] % (Auto) (0-7) % Eos % (Auto) (0-6) % Baso % (Auto) (0-2) % Absolute Neuts (auto) (1.5-7.7) 10^3/ul Absolute Lymphs (auto) (1.0-4.8) 10^3/ul Absolute Monos (auto) (0-0.8) 10^3/ul Absolute Eos (auto) (0-0.6) 10^3/ul Absolute Basos (auto) (0-0.2) 10^3/ul Absolute Nucleated RBC 10^3/ul Nucleated RBC % INR (Anticoag Therapy) (0.77-1.02) Sodium (135-145) mmol/L Potassium (3.5-5.0) mmol/L Chloride (101-111) mmol/L Carbon Dioxide (22-32) mmol/L Anion Gap (2-11) mmol/L BUN (6-24) mg/dL Creatinine (0.51-0.95) mg/dL Est GFR ( Amer) (>60) Est GFR (Non-Af Amer) (>60) BUN/Creatinine Ratio (8-20) Glucose (70-100) mg/dL Lactic Acid 0.7 (0.5-2.0) mmol/L Calcium (8.6-10.3) mg/dL Total Bilirubin (0.2-1.0) mg/dL AST (13-39) U/L ALT (7-52) U/L Alkaline Phosphatase (34-104) U/L Total Creatine Kinase (10-223) U/L Troponin I (<0.04) ng/mL Total Protein (6.4-8.9) g/dL Albumin (3.2-5.2) g/dL Globulin (2-4) g/dL Albumin/Globulin Ratio (1-3) TSH (0.34-5.60) mcIU/mL Acetaminophen mcg/mL Serum Alcohol (<10) mg/dL Assess/Plan/Problems-Billing Assessment: Patient is a 77yo female with a PHM for COPD, CAD, Chronic Pain, A/D, Peripheral Neuropathy, who is admitted due to frequent falls and increasing confusion with concerns for safety at home. - Patient Problems (1) Multiple falls Current Visit: No Status: Acute Code(s): R29.6 - REPEATED FALLS SNOMED Code(s): 857153773 Comment: Unclear Cause. Appreciate Neurological consult. Concern for Cervical Spinal disease due to UMN signs on exam. Orthostatic, will repeat after fluids. No syncope or lightheadedness on standing. Ataxic on exam, possible related to peripheral neuropathy. PT/OT. May need rehab or custodial care. (2) CAD (coronary artery disease) Current Visit: No Status: Chronic Code(s): I25.10 - ATHSCL HEART DISEASE OF [place] CORONARY ARTERY W/O ANG PCTRS SNOMED Code(s): 79127391 Comment: Continue ASA, Lisinopril. (3) COPD (chronic obstructive pulmonary disease) Current Visit: No Status: Chronic Code(s): J44.9 - CHRONIC OBSTRUCTIVE PULMONARY DISEASE, UNSPECIFIED SNOMED Code(s): 15501963 Comment: Continue tiotropium, dual inhaler. Albuterol PRN, No Exacerbation. (4) Chronic pain Current Visit: No Status: Chronic Code(s): G89.29 - OTHER CHRONIC PAIN SNOMED Code(s): 83466580 Comment: Continue opiates, Gabapentin, and Venlafaxine. 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 (5) Diabetes Current Visit: No Status: Chronic Code(s): E11.9 - TYPE 2 DIABETES MELLITUS WITHOUT COMPLICATIONS SNOMED Code(s): 96926560 Comment: Diet controlled. No Elevated fasting glucose. (6) GERD (gastroesophageal reflux disease) Current Visit: No Status: Chronic Code(s): K21.9 - GASTRO-ESOPHAGEAL REFLUX DISEASE WITHOUT ESOPHAGITIS SNOMED Code(s): 063090181 Comment: Continue Omeprazole. (7) HTN (hypertension) Current Visit: No Status: Chronic Code(s): I10 - ESSENTIAL (PRIMARY) HYPERTENSION SNOMED Code(s): 39549648 Comment: Continue amlodipine and lisinopril. Orthostatic. Will give fluid trial and repeat in AM. (8) Hypothyroid Current Visit: No Status: Chronic Code(s): E03.9 - HYPOTHYROIDISM, UNSPECIFIED SNOMED Code(s): 00233902 Comment: TSH low with high T4. Concern for multuple dosing with patients home synthroid. Repeat in 3 months after supervised medication compliance. Status and Disposition: Inpatient.
[2017-10-12] MEDS: oxyCODONE SR TAB(*) 15 MG TAB.SR PO SCH ×2 (13:17→22:27)
--- NOTE | 2017-10-12 14:49 | CONS ---
CC: MICHAEL Short * NEUROLOGY CONSULTATION: DATE OF CONSULT: 10/12/17 REQUESTING PROVIDER: DALIA Jaimes REASON FOR CONSULT: Gait ataxia. HISTORY OF PRESENT ILLNESS: Shu Nagy is a 77-year-old woman with a history of diet-controlled diabetes, COPD, reported history of dementia as well as hypertension and hyperlipidemia and known compression fractures in her thoracic and upper lumbar spine, who came into the emergency department yesterday because of increasing falls and potentially increasing confusion as well. I previously saw her during a hospitalization in May when she came in for falls and there was concern that she had right leg weakness. On Mr. Taveras's evaluation yesterday, he felt that she was ataxic with retropulsion as well as falling to the left when he was ambulating her and therefore requested neurology consultation. In my previous evaluation of Ms. Nagy, I did not find any focal weakness, but she did describe radicular pain down her right leg at that time. I also made mention of her extensive home medication list, which includes multiple sedating medications and recommendation for attention to streamlining these medications. On my evaluation today, Ms. Nagy is somewhat difficult to get a history from as she is frequently falling asleep during the evaluation. Nursing notes indicate that she had a very active and restless night and apparently did not sleep much. She tells me that she gets dizzy, which she has difficulty further describing, but it seems that she feels lightheaded and as though she may pass out and has frequent falls at home. She seems to indicate that when she falls she is not always using her walker and sometimes she is tripped by her cat and other times she may trip on a carpet and fall, but still at other times she does not know what causes her to fall. She does describe feeling pulled to one side or the other, but is not consistent in any particular direction. She has sustained injuries and abrasions to her upper extremities as well as her nose where she has an abrasion. She lives alone and is not specific about what kind of help she has coming into the house, but Mr. Taveras tells me that apparently her daughter fills her pillbox once a week, but has suspicion that her mother may take additional medications out of the bottles themselves as well. The patient denies any specific pain at the time of my evaluation, but does endorse a history of neck as well as back pain. She denies any numbness or tingling currently. She denies any dizziness or vertigo at the present time, but does state that if she turns too quickly she will feel dizzy. PAST MEDICAL HISTORY: COPD, diet-controlled diabetes, probable peripheral neuropathy, hypertension, hyperlipidemia, postsurgical hypothyroidism, GERD, anxiety, vertigo, coronary artery disease, dementia. PAST SURGICAL HISTORY: Partial thyroidectomy, cholecystectomy, appendectomy, hysterectomy. HOME MEDICATIONS: 1. Levothyroxine 88 mcg daily. 2. Ranitidine 300 mg daily. 3. Lisinopril 5 mg daily. 4. OxyContin 30 mg q.12 hours. 5. Amlodipine 2.5 mg daily. 6. Venlafaxine XR 150 mg daily. 7. Sumatriptan 50 mg p.r.n. migraine. 8. Trazodone 50 mg at bedtime. 9. Albuterol as needed. 10. Vitamin D 1000 units daily. 11. Bupropion 300 mg daily. 12. Aspirin 81 mg. 13. Gabapentin 100 mg twice daily. 14. Advair twice daily. 15. Nexium 40 mg daily. 16. [place] 5/325 one tablet q.6 p.r.n. In hospital, she is receiving all of the above medications except trazodone was discontinued. She has not received Edwards since her admission and last took OxyContin last evening at 2216. ALLERGIES: No known drug allergies. FAMILY HISTORY: Mother with cancer. Father had heart failure. SOCIAL HISTORY: She tells me she smokes 2 to 3 cigarettes per day. She uses oxygen at night. She denies alcohol intake. She lives alone. REVIEW OF SYSTEMS: She tells me that she is sleepy during the day, but has trouble sleeping at night, yet denies taking naps during the day. Otherwise, as per the HPI. PHYSICAL EXAMINATION: Vital Signs: Temperature 98, blood pressure 129/60, heart rate 65, oxygen saturation 100% on room air. I do not see the vitals yet listed in the chart, but per report from her nurse, her orthostatic vital signs were positive with approximately 20 mmHg drop in her systolic blood pressure from supine to standing. On general examination, she appears her stated age and is in no acute distress. She was initially sleeping when I entered the room and can be awoken easily, but falls back to sleep frequently during the exam and is difficult to keep awake. Her heart is in a regular rate and rhythm with a systolic ejection murmur. There are no carotid bruits. Lungs were clear to auscultation bilaterally. On neurologic exam, she is aware that she is in the hospital. She is sleepy as noted above. She states that the year is "8." Naming for simple objects is intact. She frequently trails off in her speech and will then talk off topic as she is falling asleep and forgets the question that is asked to her. Her speech is clear when she is fully awake. On cranial nerve exam, pupils were equal, round, and reactive from 3 to 2 mm. She has an intermittent left exophoria, which is worse with upgaze and was noted on the previous exam in May as well. Her versions are otherwise full with no nystagmus. Gordon are full to confrontation. Facial sensation and musculature are full and symmetric. Hearing is intact to voice. Palate elevates symmetrically and the tongue is midline. On motor examination, she has full strength in the upper and lower extremities. She had some paratonia in the lower extremities, but also seems to have some increased tone in the left leg over and above the paratonia. Sensation was intact to temperature in the upper and lower extremities and I could not test vibration as she continually was falling asleep. She was noted to have some sleep myoclonus. Her reflexes were 3+ in the upper extremities, 3+ at the left knee with cross adduction, 2+ at the ankles with a possible upgoing toe on the left, but she is also ticklish. The toe on the right appeared mute. I ambulated her during a later evaluation with a walker with her nurse and she had decreased excursion of her left foot with less dorsiflexion on that side. She had a wide base to her stance. She turned en bloc with the walker. Overall, she appeared relatively stable with the walker, however. DIAGNOSTIC STUDIES/LAB DATA: White blood cell count 6.2, hemoglobin 11.7, hematocrit 35, platelet count 309. Her initial chemistry panel was overall unremarkable aside from an elevated alkaline phosphatase of 164, AST 12, ALT 8. TSH was 0.03 and T4 was elevated at 13.93. Troponin was negative. Urinalysis was negative for infection, though there was 3+ leukocyte esterase. Toxicology screen included Tylenol and alcohol and both were negative. INR was normal. She has had numerous imaging studies, which I reviewed. Her MRI of the brain was contaminated by motion artifact, but there is evidence of atrophy as well as small vessel disease, which appears stable from a previous scan two years ago. There is no evidence of any acute process. Her cervical spine CT showed no evidence for a significant central canal stenosis, though she does have some cervical spondylosis. Her thoracic spine CT shows acute or subacute compression fractures at the T9, 10 and 11 vertebral bodies, which were new compared with the 06/25/17 exam. There is also chronic compression fracture at L1 and mild bulging at the T11 and L1 vertebral bodies, but without significant compromise of the central canal. IMPRESSION AND PLAN: This is a 77-year-old woman with multiple medical problems as well as polypharmacy, who comes in again with increase in falls. On my examination, her mental status is notable for her being significantly sleepy, but arousable and I attribute that at this time to an apparent poor night sleep last night. Otherwise, she seems to have some increased tone in her left lower extremity with a possible upgoing toe on that side with preserved ankle jerks, which I did not note on my previous examination. Her CT of the cervical spine does not show any cervical stenosis, but one could consider an MRI of the cervical spine on Saturday to evaluate for any intramedullary lesion, which might explain her upper motor neuron symptoms and gait instability. With a walker, she seems to be significantly more stable and it seems that some of her falls at home at least in part may be occurring when she is not using her walker. I again think that her medication list is a significant contributor here including her opiates with the OxyContin as well as the p.r.n. [place], in addition to bupropion and venlafaxine as well as gabapentin, though the latter medication is at a relatively low dose. If she is at home with access to these medications, it is not clear to me if she could be taking more than prescribed or if the prescribed doses may be too much for her. I think that she is likely not safe to be home alone without any services and with free access to her medications. Physical Therapy and Occupational Therapy consults are ordered, which I agree with and will be important for determining her disposition when she is medically ready to go home. Finally, orthostasis could also be contributing to these falls. Thank you for this consultation. [id number]/CPS #: [id number] [place]
[2017-10-12] MEDS: NS 0.9% 1000 ML* 1,000 ML IV SCH (17:11)
--- NOTE | 2017-10-12 22:12 | CONS ---
CONSULTATION REPORT: DATE OF CONSULT: 10/12/17 HISTORY OF PRESENT ILLNESS: The patient is a very pleasant 77-year-old female with significant past medical history for COPD, hypertension, hyperlipidemia, dementia, coronary artery disease, vertigo, peripheral neuropathy, postprocedural hypothyroidism who presented to the hospital with increased falls and contusion. The patient was seen in the hospital before on 06/25/17 and at that time she was diagnosed with chronic T11 and L1 compression fractures with a possible superior T10 fracture. The patient was reported to have sustained multiple falls. Requested to see the patient by telemedicine service because of new CT scan findings consisting of T9, T10, T11 osteoporotic compression fractures. The patient has a history of dementia and is a poor historian. History was obtained by the patient and the patient's chart. The patient does not recall any falls but it is reported that per her daughter she has been having several falls. She denies any acute cervical, thoracic or lumbar pain today, although she was reported to have chronic complaints of back pain. The patient reports she has no weakness, numbness or tingling of her extremities. She is reported to have chronic urinary incontinence but no GI incontinence. The patient is ambulating with a walker. PAST MEDICAL HISTORY: COPD, diabetes type 2, idiopathic peripheral neuropathy, hypertension, hyperlipidemia, postprocedural hypothyroidism, GERD, anxiety, vertigo, coronary artery disease, and dementia. PAST SURGICAL HISTORY: Thyroidectomy, cholecystectomy, appendectomy, hysterectomy, kidney surgery, melanoma removal, T and A. MEDICATIONS: 1. Venlafaxine. 2. Aspirin. 3. Bupropion. 4. Amlodipine. 5. Ranitidine. 6. Advair. 7. Nexium. 8. Neurontin. 9. Levothyroxine. 10. Sumatriptan. 11. Vitamin D. 12. Lisinopril. 13. Trazodone. 14. Albuterol. 15. [place]. 16. OxyContin. ALLERGIES: No known drug allergies. FAMILY HISTORY: Cancer and CHF. SOCIAL HISTORY: Tobacco positive. Alcohol negative. Recreational drug use negative. 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 She has twice and has 6 children. Per chart, the patient's daughter, Chris Martinez, is to be her surrogate decision maker. PHYSICAL EXAMINATION: The patient is not in acute distress. She is resting comfortably in the bed. She is reported to ambulate with a walker per nurse. She is awake, alert and oriented x3, although she has significant confusion when she is trying to describe past events. Pupils are equal and reactive. Cranial nerves II through XII grossly intact. Motor 4-5/5 in lower extremities. Sensory is grossly intact to light touch. Deep tendon reflexes + 1 bilaterally. No clonus and no Babinski. Brielle's negative. Straight leg test negative in the lying position. No tenderness to palpation in the thoracic or lumbar spine. She has free range of motion in the cervical spine. DIAGNOSTIC STUDIES: The patient has multiple studies including a CT scan of the brain that did not reveal any acute injuries. CT of the cervical spine did not reveal acute fractures, but she does have evidence of spondylosis. CT scan of the thoracic spine reveals multilevel osteoporotic compression fractures which are new compared to 06/25/17 including T9, T10 and T11. There is no minimal to no retropulsion in the canal without canal compromise. The patient also has a chronic compression fracture of the L1 without canal compromise. The patient has a recent MRI of the brain that did not reveal any acute abnormal findings. ASSESSMENT: The patient is a very pleasant 77-year-old female with multiple medical comorbidities with multiple compression osteoporotic fractures with complaints of frequent falls. PLAN: The patient at this point is doing quite well from her osteoporotic fractures, although she has a history of melanoma and metastatic disease cannot be excluded. Based on her chronic presentation, I think it is unlikely that this represents metastatic disease, although it cannot be completely excluded. The patient also has been evaluated by Dr. De La Vega and is scheduled for an MRI of her cervical spine to exclude any acute cord compression or intramedullary lesion that may attribute to her instability as she was found to have positive Babinski on Dr. De La Vega's exam. From her thoracic fracture standpoint, the patient would be better served with conservative treatment. She can have a thoracolumbar orthosis when out of bed and at all times for comfort. We discussed the other possibility of surgical intervention, forms of multilevel percutaneous screw placement and stabilization with possible tracheoplasty but based on the extent of her disease and the significant chance of continuation of need for further surgical interventions for adjacent level disease and fractures, the patient may be better served by conservative treatment and medical management of osteoporosis. The patient also would not like to proceed with surgical intervention at this time. The patient may benefit from upright x -ray of her thoracic and lumbar spine and will be happy to follow the MRI of the cervical spine when it will be available. Thank you for allowing us to participate in the care of this patient. Please do not hesitate to contact our office in case you have any further questions or concerns regarding the care of this patient. [id number]/CPS #: [id number] MTDD
[2017-10-12] MEDS: Melatonin 3 MG TAB PO PRN (22:28)
[2017-10-12] MEDS: Lidocaine Patch REMOVE* 1 NOTE MISC PATCH OFF SCH (22:29)
[2017-10-13] MEDS: Heparin VIAL(*) 5000 UNITS/ML VIAL (FIVE THOUSAND) SUBCUT SCH ×3 (05:51→21:50)
[2017-10-13] MEDS: NS 0.9% 1000 ML* 1,000 ML IV SCH (05:51)
[2017-10-13] MEDS: Levothyroxine TAB* 88 MCG TAB PO SCH (05:51)
[2017-10-13 06:35] LABS: ABS Basophils 0.1 10^3/ul (0-0.2); ABS Eosinophils 0.3 10^3/ul (0-0.6); ABS Lymphocytes 2.6 10^3/ul (1.0-4.8); ABS Monocytes 0.6 10^3/ul (0-0.8); ABS Neutrophils 2.5 10^3/ul (1.5-7.7); ABS Nucleated RBC 0 10^3/ul; Eosinophil % 4.8 % (0-6); Hematocrit 34 % (35-47); Hemoglobin 11.6 g/dl (12.0-16.0); Lymphocyte % 43.4 % (25-47); Mean Corpuscular HGB Conc 34 g/dl (31-36); Mean Corpuscular Hemoglobin 30 pg (27-31); Mean Corpuscular Volume 89 fL (80-97); Mean Platelet Volume 7.5 um3 (7.4-10.4); Nucleated Red Blood Cells % 0.1; Platelet Count 299 10^3/ul (150-450); Red Blood Count 3.85 10^6/ul (4.00-5.40); Red Cell Distribution Width 14 % (10.5-15); White Blood Count 6.1 10^3/ul (3.5-10.8)
[2017-10-13 06:50] LABS: EGFR Non-African American 85.6 (>60)
[2017-10-13] MEDS ORDERED: Magnesium Sulfate IV* 3 GM in NS 0.9% 100 ML* 100 ML IVPB ONE (07:30)
[2017-10-13] MEDS: Omeprazole CAP* 20 MG PO SCH (08:00)
[2017-10-13] MEDS: Lidocaine PATCH 5%* 1 PATCH TRANSDERM SCH (08:11)
[2017-10-13] MEDS: Gabapentin CAP(*) 100 MG PO SCH ×2 (08:11→21:49)
[2017-10-13] MEDS: Famotidine TAB* 20 MG PO SCH (08:11)
[2017-10-13] MEDS: Venlafaxine EXT RELEASE CAP* 75 MG PO SCH (08:11)
[2017-10-13] MEDS: amLODIPine TAB* 5 MG PO SCH (08:12)
[2017-10-13] MEDS: Aspirin EC TAB* 81 MG TAB.EC PO SCH (08:12)
[2017-10-13] MEDS: Cholecalciferol TAB* 1000 UNITS PO SCH (08:12)
[2017-10-13] MEDS: Lisinopril TAB* 5 MG PO SCH (08:12)
[2017-10-13] MEDS: BuPROPion XL* 300 MG TAB.XL PO SCH (08:16)
[2017-10-13] MEDS: Mometasone/Formoter 200/5 MDI INH SCH ×2 (08:28→20:02)
[2017-10-13] MEDS: oxyCODONE SR TAB(*) 15 MG TAB.SR PO SCH (11:19)
--- NOTE | 2017-10-13 13:44 | RAD ---
INDICATION: Neck pain COMPARISON: None TECHNIQUE: Coronal T2, sagittal T1, inversion recovery, T2, and axial T1, T2, and gradient echo images were acquired. Image quality is limited by motion artifact. FINDINGS: The sella and craniocervical junction appear unremarkable. There are no intrinsic abnormalities of the cord. The cervical vertebrae are normally aligned. The atlantodental interval is normal. Axial view images: Less otherwise specified below there is no significant central canal stenosis or neural foraminal stenosis. C2-C3: There is no significant central canal or neural foraminal stenoses. C3-C4: There is no significant central canal or neural foraminal stenoses. C4-C5: There is broad-based disc protrusion eccentric towards the left foramen that abuts the ventral thecal sac. There is no clear neural foraminal stenosis but the image quality is poor. C5-C6: There is no significant central canal or neural foraminal stenoses. C6-C7: There is no significant central canal or neural foraminal stenoses. C7-T1: There is no significant central canal or neural foraminal stenoses. IMPRESSION:MR images of the cervical spine are of very limited quality due to motion artifact. There is mild multilevel degenerative change most severe at C4/C5.
[2017-10-13] MEDS ORDERED: oxyCODONE SR TAB(*) 20 MG TAB.SR PO SCH (14:30)
[2017-10-13] MEDS ORDERED: Docusate CAP* 100 MG PO PRN (14:30)
[2017-10-13] MEDS ORDERED: Polyethylene Glycol 3350* 17 GM PACKET PO PRN (14:30)
--- NOTE | 2017-10-13 14:49 | PN ---
Subjective Date of Service: 10/13/17 Interval History: Patient denies any pain today. States she feels very steady on her feet. Denies CP, SOB, N/V, abdominal pain, Dysuria, Dizziness on standing, diarrhea, F/C, or other pain. No Spasms or other pain in LLE. Wants to go home and wants to not go to rehab. Family History: Unchanged from Admission Social History: Unchanged from Admission Past Medical History: Unchanged from Admission Objective Active Medications: Acetaminophen (Tylenol Tab*) 650 mg PO Q6H PRN PRN Reason: FEVER/PAIN Hydrocodone Bitart/Acetaminophen (Lamoure 5-325 Tab*) 1 tab PO Q6H PRN PRN Reason: PAIN Last Admin: 10/12/17 22:29 Dose: 1 tab Albuterol (Ventolin 2.5 Mg/3 Ml Neb.Tuyet*) 2.5 mg INH Q6H PRN PRN Reason: SHORTNESS OF BREATH Amlodipine Besylate (Norvasc Tab*) 2.5 mg PO DAILY [facility] Last Admin: 10/13/17 08:12 Dose: 2.5 mg Aspirin (Aspirin Ec Tab*) 81 mg PO DAILY [facility] Last Admin: 10/13/17 08:12 Dose: 81 mg Bupropion HCl (Bupropion Xl*) 300 mg PO DAILY [facility] Last Admin: 10/13/17 08:16 Dose: 300 mg Cholecalciferol (Vitamin D Tab*) 1,000 units PO DAILY [facility] Last Admin: 10/13/17 08:12 Dose: 1,000 units Device (Nicotine Mouth Piece*) 1 each INH .USE WITH NICOTROL PRN PRN Reason: CRAVING Docusate Sodium (Colace Cap*) 200 mg PO DAILY PRN PRN Reason: CONSTIPATION Famotidine (Pepcid Tab*) 40 mg PO DAILY WITH MEAL [facility]; Protocol Last Admin: 10/13/17 08:11 Dose: 40 mg Gabapentin (Neurontin Cap(*)) 100 mg PO BID [facility] Last Admin: 10/13/17 08:11 Dose: 100 mg Heparin Sodium (Porcine) (Heparin Vial(*)) 5,000 units SUBCUT Q8HR [facility] Last Admin: 10/13/17 05:51 Dose: 5,000 units Sodium Chloride (Ns 0.9% 1000 Ml*) 1,000 mls @ 100 mls/hr IV PER RATE [facility] Stop: 10/14/17 00:14 Last Admin: 10/13/17 05:51 Dose: 100 mls/hr Levothyroxine Sodium (Synthroid Tab*) 88 mcg PO 0600 [facility] Last Admin: 10/13/17 05:51 Dose: 88 mcg Lidocaine (Lidoderm 5% Patch*) 1 patch TRANSDERM DAILY [facility] Last Admin: 10/13/17 08:11 Dose: 1 patch Lisinopril (Prinivil Tab*) 5 mg PO DAILY [facility] Last Admin: 10/13/17 08:12 Dose: 5 mg Melatonin (Melatonin) 3 mg PO BEDTIME PRN PRN Reason: INSOMNIA Last Admin: 10/12/17 22:28 Dose: 3 mg Mometasone Furoate/Formoterol Fumar (Dulera 200/5 Mdi*) 2 puff INH BID [facility] Last Admin: 10/13/17 08:28 Dose: 2 puff Nicotine (Nicotine Inhaler*) 10 mg INH Q2H PRN PRN Reason: CRAVING Omeprazole (Prilosec Cap*) 20 mg PO DAILY [facility]; Protocol Last Admin: 10/13/17 08:00 Dose: 20 mg Ondansetron HCl (Zofran Inj*) 4 mg IV Q6H PRN PRN Reason: NAUSEA Oxycodone HCl (Oxycontin(*)) 20 mg PO Q12H [facility] Pharmacy Profile Note (Lidocaine Patch Remove*) 1 note PATCH OFF 2100 [facility] Last Admin: 10/12/17 22:29 Dose: 1 note Polyethylene Glycol/Electrolytes (Miralax*) 17 gm PO DAILY PRN PRN Reason: CONSTIPATION Venlafaxine HCl (Effexor Xr Cap*) 150 mg PO DAILY [facility] Last Admin: 10/13/17 08:11 Dose: 150 mg Vital Signs - 8 hr 10/13/17 10/13/17 10/13/17 07:40 07:44 08:00 Temperature 97.9 F Pulse Rate 55 64 Respiratory 12 12 Rate Blood Pressure 135/47 120/36 (mmHg) O2 Sat by Pulse 100 100 Oximetry 10/13/17 10/13/17 10/13/17 08:11 08:30 11:19 Temperature Pulse Rate 70 Respiratory 12 16 12 Rate Blood Pressure (mmHg) O2 Sat by Pulse 93 Oximetry 10/13/17 11:37 Temperature 97.3 F Pulse Rate 58 Respiratory 18 Rate Blood Pressure 126/49 (mmHg) O2 Sat by Pulse 100 Oximetry Oxygen Devices in Use Now: None Appearance: Patient is a 77yo female who appears stated age and is sitting in the bed in NAD. Eyes: No Scleral Icterus, PERRLA Ears/Nose/Mouth/Throat: NL Teeth, Lips, Gums, Clear Oropharnyx, Mucous Membranes Moist Neck: NL Appearance and Movements; NL JVP, Trachea Midline Respiratory: Symmetrical Chest Expansion and Respiratory Effort, Clear to Auscultation Cardiovascular: NL Sounds; No Murmurs; No JVD, RRR, No Edema Abdominal: NL Sounds; No Tenderness; No Distention, No Hepatosplenomegaly Lymphatic: No Cervical Adenopathy Extremities: No Edema, No Clubbing, Cyanosis Skin: No Nodules or Sclerosis Neurological: Alert and Oriented x 3, NL Sensation, - - 4/5 strength in LLE with increased reflexes compared to right side. Unable to provoke babinski. Result Diagrams: 10/13/17 06:14 10/13/17 06:14 Additional Lab and Data: Lab Results 10/11/17 10/11/17 10/11/17 Range/Units 16:02 16:02 16:02 WBC 7.0 (3.5-10.8) 10^3/ul RBC 3.96 L (4.00-5.40) 10^6/ul Hgb 11.7 L (12.0-16.0) g/dl Hct 35 (35-47) % MCV 89 (80-97) fL MCH 29 (27-31) pg MCHC 33 (31-36) g/dl RDW 14 (10.5-15) % Plt Count 327 (150-450) 10^3/ul MPV 7.5 (7.4-10.4) um3 Neut % (Auto) 50.4 (38-83) % Lymph % (Auto) 34.3 (25-47) % [place] % (Auto) 9.6 H (0-7) % Eos % (Auto) 4.4 (0-6) % Baso % (Auto) 1.3 (0-2) % Absolute Neuts (auto) 3.5 (1.5-7.7) 10^3/ul Absolute Lymphs (auto) 2.4 (1.0-4.8) 10^3/ul Absolute Monos (auto) 0.7 (0-0.8) 10^3/ul Absolute Eos (auto) 0.3 (0-0.6) 10^3/ul Absolute Basos (auto) 0.1 (0-0.2) 10^3/ul Absolute Nucleated RBC 0 10^3/ul Nucleated RBC % 0.1 INR (Anticoag Therapy) 0.98 (0.77-1.02) Sodium 138 (135-145) mmol/L Potassium 3.8 (3.5-5.0) mmol/L Chloride 103 (101-111) mmol/L Carbon Dioxide 28 (22-32) mmol/L Anion Gap 7 (2-11) mmol/L BUN 11 (6-24) mg/dL Creatinine 0.71 (0.51-0.95) mg/dL Est GFR ( Amer) 96.8 (>60) Est GFR (Non-Af Amer) 80.0 (>60) BUN/Creatinine Ratio 15.5 (8-20) Glucose 76 (70-100) mg/dL Lactic Acid (0.5-2.0) mmol/L Calcium 9.4 (8.6-10.3) mg/dL Total Bilirubin 0.40 (0.2-1.0) mg/dL AST 12 L (13-39) U/L ALT 8 (7-52) U/L Alkaline Phosphatase 164 H (34-104) U/L Total Creatine Kinase 115 (10-223) U/L Troponin I 0.01 (<0.04) ng/mL Total Protein 6.7 (6.4-8.9) g/dL Albumin 3.5 (3.2-5.2) g/dL Globulin 3.2 (2-4) g/dL Albumin/Globulin Ratio 1.1 (1-3) TSH 0.03 L (0.34-5.60) mcIU/mL Acetaminophen < 15 mcg/mL Serum Alcohol < 10 (<10) mg/dL 10/11/17 Range/Units 16:02 WBC (3.5-10.8) 10^3/ul RBC (4.00-5.40) 10^6/ul Hgb (12.0-16.0) g/dl Hct (35-47) % MCV (80-97) fL MCH (27-31) pg MCHC (31-36) g/dl RDW (10.5-15) % Plt Count (150-450) 10^3/ul MPV (7.4-10.4) um3 Neut % (Auto) (38-83) % Lymph % (Auto) (25-47) % [place] % (Auto) (0-7) % Eos % (Auto) (0-6) % Baso % (Auto) (0-2) % Absolute Neuts (auto) (1.5-7.7) 10^3/ul Absolute Lymphs (auto) (1.0-4.8) 10^3/ul Absolute Monos (auto) (0-0.8) 10^3/ul Absolute Eos (auto) (0-0.6) 10^3/ul Absolute Basos (auto) (0-0.2) 10^3/ul Absolute Nucleated RBC 10^3/ul Nucleated RBC % INR (Anticoag Therapy) (0.77-1.02) Sodium (135-145) mmol/L Potassium (3.5-5.0) mmol/L Chloride (101-111) mmol/L Carbon Dioxide (22-32) mmol/L Anion Gap (2-11) mmol/L BUN (6-24) mg/dL Creatinine (0.51-0.95) mg/dL Est GFR ( Amer) (>60) Est GFR (Non-Af Amer) (>60) BUN/Creatinine Ratio (8-20) Glucose (70-100) mg/dL Lactic Acid 0.7 (0.5-2.0) mmol/L Calcium (8.6-10.3) mg/dL Total Bilirubin (0.2-1.0) mg/dL AST (13-39) U/L ALT (7-52) U/L Alkaline Phosphatase (34-104) U/L Total Creatine Kinase (10-223) U/L Troponin I (<0.04) ng/mL Total Protein (6.4-8.9) g/dL Albumin (3.2-5.2) g/dL Globulin (2-4) g/dL Albumin/Globulin Ratio (1-3) TSH (0.34-5.60) mcIU/mL Acetaminophen mcg/mL Serum Alcohol (<10) mg/dL Microbiology and Other Data: Microbiology 10/11/17 18:20 Urine Culture - Preliminary Urine Escherichia Coli 10/11/17 16:03 Aerobic Blood Culture - Preliminary Blood Venous No Growth Day 1 Anaerobic Blood Culture - Preliminary No Growth Day 1 10/11/17 15:33 Aerobic Blood Culture - Preliminary Blood Venous No Growth Day 1 Anaerobic Blood Culture - Preliminary No Growth Day 1 Assess/Plan/Problems-Billing Assessment: Patient is a 77yo female with a PHM for COPD, CAD, Chronic Pain, A/D, Peripheral Neuropathy, who is admitted due to frequent falls and increasing confusion with concerns for safety at home. - Patient Problems (1) Multiple falls Current Visit: No Status: Acute Code(s): R29.6 - REPEATED FALLS SNOMED Code(s): 852598795 Comment: Unclear Cause. Appreciate Neurological consult. Concern for Cervical Spinal disease due to UMN signs on exam. MRI poor quality with no obvious cord impingement. Orthostatic after fluids. No syncope or lightheadedness on standing. Encourage oral intake. Ataxic on exam, possible related to peripheral neuropathy. PT/OT. May need rehab or penitentiary care. (2) CAD (coronary artery disease) Current Visit: No Status: Chronic Code(s): I25.10 - ATHSCL HEART DISEASE OF [place] CORONARY ARTERY W/O ANG PCTRS SNOMED Code(s): 82917911 Comment: Continue ASA, Lisinopril. (3) COPD (chronic obstructive pulmonary disease) Current Visit: No Status: Chronic Code(s): J44.9 - CHRONIC OBSTRUCTIVE PULMONARY DISEASE, UNSPECIFIED SNOMED Code(s): 28728840 Comment: Continue tiotropium, dual inhaler. Albuterol PRN, No Exacerbation. (4) Chronic pain Current Visit: No Status: Chronic Code(s): G89.29 - OTHER CHRONIC PAIN SNOMED Code(s): 23225632 Comment: Continue opiates, Gabapentin, and Venlafaxine. Possibly replated to peripheral neuropathy and penitentiary spinal disease. Decrease Oxycontin due to falls and adequate pain control. (5) Diabetes Current Visit: No Status: Chronic Code(s): E11.9 - TYPE 2 DIABETES MELLITUS WITHOUT COMPLICATIONS SNOMED Code(s): 55500817 Comment: Diet controlled. No Elevated fasting glucose. (6) GERD (gastroesophageal reflux disease) Current Visit: No Status: Chronic Code(s): K21.9 - GASTRO-ESOPHAGEAL REFLUX DISEASE WITHOUT ESOPHAGITIS SNOMED Code(s): 808345114 Comment: Continue Omeprazole. (7) HTN (hypertension) Current Visit: No Status: Chronic Code(s): I10 - ESSENTIAL (PRIMARY) HYPERTENSION SNOMED Code(s): 35484377 Comment: Continue amlodipine and lisinopril. Orthostatic after fluids. Encourage oral intake. (8) Hypothyroid Current Visit: No Status: Chronic Code(s): E03.9 - HYPOTHYROIDISM, UNSPECIFIED SNOMED Code(s): 85387198 Comment: TSH low with high T4. Concern for multuple dosing with patients home synthroid. Repeat in 3 months after supervised medication compliance. Status and Disposition: Inpatient. Will likely need rehab. Patient obviously lacks capacity to refuse rehab placement. Will Obtain formal psychiatry consultation if patient continues to refuse placement.
[2017-10-13] MEDS: Melatonin 3 MG TAB PO PRN (21:48)
[2017-10-13] MEDS: Lidocaine Patch REMOVE* 1 NOTE MISC PATCH OFF SCH (21:49)
[2017-10-13] MEDS: oxyCODONE SR TAB(*) 20 MG TAB.SR PO SCH (21:49)
[2017-10-14] MEDS: Levothyroxine TAB* 88 MCG TAB PO SCH (06:09)
[2017-10-14] MEDS: Heparin VIAL(*) 5000 UNITS/ML VIAL (FIVE THOUSAND) SUBCUT SCH ×3 (06:10→21:43)
[2017-10-14] MEDS: Famotidine TAB* 20 MG PO SCH (08:11)
[2017-10-14] MEDS: Aspirin EC TAB* 81 MG TAB.EC PO SCH (08:12)
[2017-10-14] MEDS: Omeprazole CAP* 20 MG PO SCH (08:12)
[2017-10-14] MEDS: Venlafaxine EXT RELEASE CAP* 75 MG PO SCH (08:13)
[2017-10-14] MEDS: Cholecalciferol TAB* 1000 UNITS PO SCH (08:13)
[2017-10-14] MEDS: BuPROPion XL* 300 MG TAB.XL PO SCH (08:13)
[2017-10-14] MEDS: Lisinopril TAB* 5 MG PO SCH (08:13)
[2017-10-14] MEDS: Gabapentin CAP(*) 100 MG PO SCH ×2 (08:13→19:52)
[2017-10-14] MEDS: Lidocaine PATCH 5%* 1 PATCH TRANSDERM SCH (08:20)
[2017-10-14] MEDS: Mometasone/Formoter 200/5 MDI INH SCH ×2 (08:38→19:55)
--- NOTE | 2017-10-14 10:03 | RAD ---
Indication: Compression fracture for follow-up. 2 views of the thoracic spine are reviewed and compared to previous CT dated October 11, 2017. Again noted is compression fracture of L1 vertebra unchanged from previous. Compression fractures of T9 of less than 25%, proximal 50% of T10 and 75% of T11 is again identified similar extent to that seen on 713 and 18. The remainder of the vertebra unremarkable. IMPRESSION: Compression fractures of T9, T10 and T11 as well as L1 appears similar to that identified on October 11, 2017.
[2017-10-14] MEDS: oxyCODONE SR TAB(*) 20 MG TAB.SR PO SCH ×2 (11:02→22:40)
[2017-10-14] MEDS: Cyanocobalamin TAB* 500 MCG PO SCH (12:27)
--- NOTE | 2017-10-14 14:49 | PN ---
Subjective Date of Service: 10/14/17 Interval History: Patient confused this AM but in very good spirits. Initially amenable to rehab, then became angry and tried to leave. Calmed down later with family present. Denies CP, SOB, N/V, abdominal Pain, diarrhea, dysuria, F/C, dizziness, or other pain. Family History: Unchanged from Admission Social History: Unchanged from Admission Past Medical History: Unchanged from Admission Objective Active Medications: Acetaminophen (Tylenol Tab*) 650 mg PO Q6H PRN PRN Reason: FEVER/PAIN Last Admin: 10/14/17 08:12 Dose: 650 mg Hydrocodone Bitart/Acetaminophen ([place] 5-325 Tab*) 1 tab PO Q6H PRN PRN Reason: PAIN Last Admin: 10/12/17 22:29 Dose: 1 tab Albuterol (Ventolin 2.5 Mg/3 Ml Neb.Tuyet*) 2.5 mg INH Q6H PRN PRN Reason: SHORTNESS OF BREATH Aspirin (Aspirin Ec Tab*) 81 mg PO DAILY [facility] Last Admin: 10/14/17 08:12 Dose: 81 mg Bupropion HCl (Bupropion Xl*) 300 mg PO DAILY [facility] Last Admin: 10/14/17 08:13 Dose: 300 mg Calcium Citrate (Citracal Tab*) 400 mg PO QPM [facility] Cholecalciferol (Vitamin D Tab*) 2,000 units PO DAILY [facility] Cyanocobalamin (Vitamin B12 Tab*) 1,000 mcg PO DAILY [facility] Last Admin: 10/14/17 12:27 Dose: 1,000 mcg Device (Nicotine Mouth Piece*) 1 each INH .USE WITH NICOTROL PRN PRN Reason: CRAVING Docusate Sodium (Colace Cap*) 200 mg PO DAILY PRN PRN Reason: CONSTIPATION Famotidine (Pepcid Tab*) 40 mg PO DAILY WITH MEAL [facility]; Protocol Last Admin: 10/14/17 08:11 Dose: 40 mg Gabapentin (Neurontin Cap(*)) 100 mg PO BID [facility] Last Admin: 10/14/17 08:13 Dose: 100 mg Heparin Sodium (Porcine) (Heparin Vial(*)) 5,000 units SUBCUT Q8HR [facility] Last Admin: 10/14/17 14:22 Dose: 5,000 units Levothyroxine Sodium (Synthroid Tab*) 88 mcg PO 0600 [facility] Last Admin: 10/14/17 06:09 Dose: 88 mcg Lidocaine (Lidoderm 5% Patch*) 1 patch TRANSDERM DAILY [facility] Last Admin: 10/14/17 08:20 Dose: 1 patch Lisinopril (Prinivil Tab*) 5 mg PO DAILY [facility] Last Admin: 10/14/17 08:13 Dose: 5 mg Melatonin (Melatonin) 3 mg PO BEDTIME PRN PRN Reason: INSOMNIA Last Admin: 10/13/17 21:48 Dose: 3 mg Mometasone Furoate/Formoterol Fumar (Dulera 200/5 Mdi*) 2 puff INH BID [facility] Last Admin: 10/14/17 08:38 Dose: 2 puff Nicotine (Nicotine Inhaler*) 10 mg INH Q2H PRN PRN Reason: CRAVING Omeprazole (Prilosec Cap*) 20 mg PO DAILY [facility]; Protocol Last Admin: 10/14/17 08:12 Dose: 20 mg Ondansetron HCl (Zofran Inj*) 4 mg IV Q6H PRN PRN Reason: NAUSEA Oxycodone HCl (Oxycontin(*)) 20 mg PO 1100,2300 [facility] Last Admin: 10/14/17 11:02 Dose: 20 mg Pharmacy Profile Note (Lidocaine Patch Remove*) 1 note PATCH OFF 2100 [facility] Last Admin: 10/13/17 21:49 Dose: 1 note Polyethylene Glycol/Electrolytes (Miralax*) 17 gm PO DAILY PRN PRN Reason: CONSTIPATION Venlafaxine HCl (Effexor Xr Cap*) 150 mg PO DAILY [facility] Last Admin: 10/14/17 08:13 Dose: 150 mg Vital Signs - 8 hr 10/14/17 10/14/17 10/14/17 07:31 07:32 08:13 Temperature 98.0 F Pulse Rate 68 Respiratory 18 20 20 Rate Blood Pressure 151/64 (mmHg) O2 Sat by Pulse 98 Oximetry 10/14/17 10/14/17 10/14/17 08:39 10:52 11:02 Temperature Pulse Rate 76 Respiratory 18 18 18 Rate Blood Pressure (mmHg) O2 Sat by Pulse 92 Oximetry 10/14/17 13:01 Temperature Pulse Rate Respiratory 18 Rate Blood Pressure (mmHg) O2 Sat by Pulse Oximetry Oxygen Devices in Use Now: None Appearance: Patient is a 77yo female who appears stated age and is sitting in the bed in NAD. Eyes: No Scleral Icterus, PERRLA Ears/Nose/Mouth/Throat: NL Teeth, Lips, Gums, Clear Oropharnyx, Mucous Membranes Moist Neck: NL Appearance and Movements; NL JVP, Trachea Midline Respiratory: Symmetrical Chest Expansion and Respiratory Effort, Clear to Auscultation Cardiovascular: NL Sounds; No Murmurs; No JVD, RRR, No Edema Abdominal: NL Sounds; No Tenderness; No Distention, No Hepatosplenomegaly Lymphatic: No Cervical Adenopathy Extremities: No Edema, No Clubbing, Cyanosis Skin: No Nodules or Sclerosis, - - Stable skin tears. Neurological: NL Sensation, NL Muscle Strength and Tone, - - Left leg Weakness resolved. Persistent hyperreflexia in LLE. Very poor balance with retropulsion. Positive Romberg. Result Diagrams: 10/13/17 06:14 10/13/17 06:14 Additional Lab and Data: Lab Results 10/11/17 10/11/17 10/11/17 Range/Units 16:02 16:02 16:02 WBC 7.0 (3.5-10.8) 10^3/ul RBC 3.96 L (4.00-5.40) 10^6/ul Hgb 11.7 L (12.0-16.0) g/dl Hct 35 (35-47) % MCV 89 (80-97) fL MCH 29 (27-31) pg MCHC 33 (31-36) g/dl RDW 14 (10.5-15) % Plt Count 327 (150-450) 10^3/ul MPV 7.5 (7.4-10.4) um3 Neut % (Auto) 50.4 (38-83) % Lymph % (Auto) 34.3 (25-47) % [place] % (Auto) 9.6 H (0-7) % Eos % (Auto) 4.4 (0-6) % Baso % (Auto) 1.3 (0-2) % Absolute Neuts (auto) 3.5 (1.5-7.7) 10^3/ul Absolute Lymphs (auto) 2.4 (1.0-4.8) 10^3/ul Absolute Monos (auto) 0.7 (0-0.8) 10^3/ul Absolute Eos (auto) 0.3 (0-0.6) 10^3/ul Absolute Basos (auto) 0.1 (0-0.2) 10^3/ul Absolute Nucleated RBC 0 10^3/ul Nucleated RBC % 0.1 INR (Anticoag Therapy) 0.98 (0.77-1.02) Sodium 138 (135-145) mmol/L Potassium 3.8 (3.5-5.0) mmol/L Chloride 103 (101-111) mmol/L Carbon Dioxide 28 (22-32) mmol/L Anion Gap 7 (2-11) mmol/L BUN 11 (6-24) mg/dL Creatinine 0.71 (0.51-0.95) mg/dL Est GFR ( Amer) 96.8 (>60) Est GFR (Non-Af Amer) 80.0 (>60) BUN/Creatinine Ratio 15.5 (8-20) Glucose 76 (70-100) mg/dL Lactic Acid (0.5-2.0) mmol/L Calcium 9.4 (8.6-10.3) mg/dL Total Bilirubin 0.40 (0.2-1.0) mg/dL AST 12 L (13-39) U/L ALT 8 (7-52) U/L Alkaline Phosphatase 164 H (34-104) U/L Total Creatine Kinase 115 (10-223) U/L Troponin I 0.01 (<0.04) ng/mL Total Protein 6.7 (6.4-8.9) g/dL Albumin 3.5 (3.2-5.2) g/dL Globulin 3.2 (2-4) g/dL Albumin/Globulin Ratio 1.1 (1-3) TSH 0.03 L (0.34-5.60) mcIU/mL Acetaminophen < 15 mcg/mL Serum Alcohol < 10 (<10) mg/dL 10/11/17 Range/Units 16:02 WBC (3.5-10.8) 10^3/ul RBC (4.00-5.40) 10^6/ul Hgb (12.0-16.0) g/dl Hct (35-47) % MCV (80-97) fL MCH (27-31) pg MCHC (31-36) g/dl RDW (10.5-15) % Plt Count (150-450) 10^3/ul MPV (7.4-10.4) um3 Neut % (Auto) (38-83) % Lymph % (Auto) (25-47) % [place] % (Auto) (0-7) % Eos % (Auto) (0-6) % Baso % (Auto) (0-2) % Absolute Neuts (auto) (1.5-7.7) 10^3/ul Absolute Lymphs (auto) (1.0-4.8) 10^3/ul Absolute Monos (auto) (0-0.8) 10^3/ul Absolute Eos (auto) (0-0.6) 10^3/ul Absolute Basos (auto) (0-0.2) 10^3/ul Absolute Nucleated RBC 10^3/ul Nucleated RBC % INR (Anticoag Therapy) (0.77-1.02) Sodium (135-145) mmol/L Potassium (3.5-5.0) mmol/L Chloride (101-111) mmol/L Carbon Dioxide (22-32) mmol/L Anion Gap (2-11) mmol/L BUN (6-24) mg/dL Creatinine (0.51-0.95) mg/dL Est GFR ( Amer) (>60) Est GFR (Non-Af Amer) (>60) BUN/Creatinine Ratio (8-20) Glucose (70-100) mg/dL Lactic Acid 0.7 (0.5-2.0) mmol/L Calcium (8.6-10.3) mg/dL Total Bilirubin (0.2-1.0) mg/dL AST (13-39) U/L ALT (7-52) U/L Alkaline Phosphatase (34-104) U/L Total Creatine Kinase (10-223) U/L Troponin I (<0.04) ng/mL Total Protein (6.4-8.9) g/dL Albumin (3.2-5.2) g/dL Globulin (2-4) g/dL Albumin/Globulin Ratio (1-3) TSH (0.34-5.60) mcIU/mL Acetaminophen mcg/mL Serum Alcohol (<10) mg/dL Microbiology and Other Data: Microbiology 10/11/17 18:20 Urine Culture - Preliminary Urine Escherichia Coli 10/11/17 16:03 Aerobic Blood Culture - Preliminary Blood Venous No Growth Day 1 Anaerobic Blood Culture - Preliminary No Growth Day 1 10/11/17 15:33 Aerobic Blood Culture - Preliminary Blood Venous No Growth Day 1 Anaerobic Blood Culture - Preliminary No Growth Day 1 Assess/Plan/Problems-Billing Assessment: Patient is a 77yo female with a PHM for COPD, CAD, Chronic Pain, A/D, Peripheral Neuropathy, who is admitted due to frequent falls and increasing confusion with concerns for safety at home. - Patient Problems (1) Multiple falls Current Visit: No Status: Acute Code(s): R29.6 - REPEATED FALLS SNOMED Code(s): 295052305 Comment: Unclear Cause. Appreciate Neurological consult. Concern for Cervical Spinal disease due to UMN signs on exam. MRI poor quality with no obvious cord impingement. No lesions. Orthostatic after fluids. No syncope or lightheadedness on standing. Encourage oral intake. Ataxic on exam, possible related to peripheral neuropathy. B12 deficient since at least 2013. Replace and check MMA. PT/OT. Plan for rehab tomorrow. (2) Compression fracture Current Visit: Yes Status: Acute Code(s): LCK1434 - SNOMED Code(s): 335434598 Comment: At T9-11 and L1. Age indeterminant. Appreciate Neurosurigcal input. Pain well controlled. Conservative management. No instability on XR. Patient refuses bracing and has good pain control. Would benefit from bisphosphonate therapy in 2 weeks for prevention of further fracture. (3) CAD (coronary artery disease) Current Visit: No Status: Chronic Code(s): I25.10 - ATHSCL HEART DISEASE OF [place] CORONARY ARTERY W/O ANG PCTRS SNOMED Code(s): 81442226 Comment: Continue ASA, Lisinopril. (4) COPD (chronic obstructive pulmonary disease) Current Visit: No Status: Chronic Code(s): J44.9 - CHRONIC OBSTRUCTIVE PULMONARY DISEASE, UNSPECIFIED SNOMED Code(s): 12682137 Comment: Continue tiotropium, dual inhaler. Albuterol PRN, No Exacerbation. (5) Chronic pain Current Visit: No Status: Chronic Code(s): G89.29 - OTHER CHRONIC PAIN SNOMED Code(s): 48507358 Comment: Continue opiates, Gabapentin, and Venlafaxine. 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 Decrease Oxycontin due to falls and adequate pain control. (6) Diabetes Current Visit: No Status: Chronic Code(s): E11.9 - TYPE 2 DIABETES MELLITUS WITHOUT COMPLICATIONS SNOMED Code(s): 84720947 Comment: Diet controlled. No Elevated fasting glucose. (7) GERD (gastroesophageal reflux disease) Current Visit: No Status: Chronic Code(s): K21.9 - GASTRO-ESOPHAGEAL REFLUX DISEASE WITHOUT ESOPHAGITIS SNOMED Code(s): 804530696 Comment: Continue Omeprazole. (8) HTN (hypertension) Current Visit: No Status: Chronic Code(s): I10 - ESSENTIAL (PRIMARY) HYPERTENSION SNOMED Code(s): 94257295 Comment: Continue amlodipine and lisinopril. Orthostatic after fluids. Encourage oral intake. (9) Hypothyroid Current Visit: No Status: Chronic Code(s): E03.9 - HYPOTHYROIDISM, UNSPECIFIED SNOMED Code(s): 30115353 Comment: TSH low with high T4. Concern for multuple dosing with patients home synthroid. Repeat in 3 months after supervised medication compliance. (10) Osteoporosis Current Visit: Yes Status: Acute Code(s): M81.0 - AGE-RELATED OSTEOPOROSIS W /O CURRENT PATHOLOGICAL FRACTURE SNOMED Code(s): 48006260 Comment: On XR with multiple fractures. Will increase vitamin D supplementation with goal of 30-50. Start Calcium supplementation. Recommend bisphosphonate therapy in 4-6 weeks. (11) B12 deficiency Current Visit: Yes Status: Acute Code(s): E53.8 - DEFICIENCY OF OTHER SPECIFIED B GROUP VITAMINS SNOMED Code(s): 257797143 Comment: Borderline low, start supplementation and MMA pending. Possible contributor to peripheral neuropathy and poor balance. (12) Full code status Current Visit: Yes Status: Acute Code(s): Z78.9 - OTHER SPECIFIED HEALTH STATUS SNOMED Code(s): 617812377 (13) DVT prophylaxis Current Visit: Yes Status: Acute Code(s): QPW9080 - SNOMED Code(s): 512419128 Comment: Heparin SubQ. Status and Disposition: Inpatient. Will likely need rehab. Patient obviously lacks capacity to refuse rehab placement. Will Obtain formal psychiatry consultation if patient continues to refuse placement.
[2017-10-14] MEDS ORDERED: Calcium Citrate TAB* 200 MG PO SCH (18:00)
[2017-10-14] MEDS ORDERED: Haloperidol INJ IV/IM* 5 MG/ML AMP IV SLOW PU ONE (19:39)
[2017-10-14] MEDS: Lidocaine Patch REMOVE* 1 NOTE MISC PATCH OFF SCH (19:53)
--- NOTE | 2017-10-14 23:19 | PN ---
Progress Note - Progress Note Date of Service: 10/14/17 Note: Witnessed fall - Landed on bottom. No complaints of pain. No injuries. Required haldol earlier for agitation. Safey monitor ordered.
--- NOTE | 2017-10-15 02:37 | PN ---
Progress Note - Progress Note Date of Service: 10/14/17 SOAP: Subjective: []Patient was seen earlier today. Received Haldol for agitation as reported by nurse. Tolerates PO, Voids. No complains of back pain. Objective: []VSS Easily arousable, Pleasantly confused Ox2, JOHNNIE, Face symmetric Motor Carla 4-5/5 Sensory grossly intact to light touch Assessment: []77 yo f , multiple TL pathologic fractures Plan: []Monitor VS, Neurochecks TLSO brace when OOB Conservative management if pain well tolerated and neurologically stable. Fall precautions Medical management of osteoporosis. MRI of C spine, limiteed due to motion, no apparent cord compression XR of T spine upright: No changes in alignment of T spine. Appreciate IM/Neurology care. Nicolas Pelayo MD
--- NOTE | 2017-10-15 02:44 | PN ---
NEUROLOGY PROGRESS NOTE: DATE OF FOLLOWUP: 10/14/17 HISTORY: There have not been any acute events. The patient appears more awake today than on my initial evaluation. She states she wants to go home and is a bit irritable about that, but at the same time states that she invites the idea of rehab to help her get stronger and help her be more safe at home. She underwent MRI scan of the cervical spine, but unfortunately the image quality is rather poor secondary to motion artifact. Mr. Taveras noted that her B12 has run on the low side of normal for quite sometime and has ordered further workup for that. MEDICATIONS: Medications were reviewed and include a lower dose of OxyContin 20 mg twice daily. She has been started on cyanocobalamin 1000 mcg daily. She otherwise remains on venlafaxine 150 mg daily as well as bupropion 300 mg daily and [place] q. 6 p.r.n., which she has not used since 10/12/17. PHYSICAL EXAMINATION: Vital signs: Temperature 98 degrees, blood pressure 151/ 64, heart rate 76, oxygen saturation was 92% on room air. On general examination, she was initially sitting up at the edge of her bed and her granddaughter and nephew were present in the room. On general exam, she is in no acute distress, but occasionally irritable about still being in the hospital. Her heart is in a regular rate and rhythm. Lungs are clear to auscultation bilaterally. There is no extremity edema. On neurologic exam, versions are full without nystagmus, but there is exophoria of the left eye, which is augmented with vertical eye movement upward. Gordon are full to confrontation. Facial sensation and musculature is slow and symmetric. The palate elevates symmetrically and tongue is midline. On motor examination, there is no focal weakness and strength appears full. Sensation is intact to light touch. Reflexes were not specifically retested today, but she did not appear to have an upgoing toe today. DATA: I reviewed her MRI of the cervical spine, which as mentioned was significantly limited due to motion artifact, but there was no clear intramedullary lesion noted. She does have some degenerative disk disease, most pronounced at C4- C5. In terms of her B12 level, this is measured at 295 on 10/13/17 and historically , her lowest level was 198 in 2016. Methylmalonic acid has been ordered as well. IMPRESSION: This is a 77-year-old woman with multiple medical problems in addition to polypharmacy who comes in with increase in falls and confusion. Her mentation has improved today in terms of her level of alertness, but she is not oriented to the year, though she is aware she is in the hospital. She also occasionally still goes off on tangents telling stories about things that are unrelated to the conversation at hand. In terms of her falls and workup for that, these are likely multifactorial and in part related to polypharmacy as well as her chronic pain and potentially peripheral neuropathy. I do not detect any jose ataxia on my exams. I think she needs a more stable and supportive living situation and at least likely needs subacute rehab. Her home living situation needs to be evaluated as her granddaughter indicated that many of her falls seem to be related to tripping over things on the floor. She also needs to consistently use her walker in her home. She may also benefit from additional help with her medications and restricted access to her medication bottles otherwise. If I can be of further assistance during Mrs. Nagy's hospitalization, please do not hesitate to let me know. [id number]/[facility] #: [id number] [place]
[2017-10-15] MEDS: Heparin VIAL(*) 5000 UNITS/ML VIAL (FIVE THOUSAND) SUBCUT SCH (05:37)
[2017-10-15] MEDS: Levothyroxine TAB* 88 MCG TAB PO SCH (05:37)
[2017-10-15 06:42] LABS: ABS Basophils 0.1 10^3/ul (0-0.2); ABS Eosinophils 0.3 10^3/ul (0-0.6); ABS Lymphocytes 2.4 10^3/ul (1.0-4.8); ABS Monocytes 0.6 10^3/ul (0-0.8); ABS Neutrophils 3.3 10^3/ul (1.5-7.7); ABS Nucleated RBC 0 10^3/ul; Eosinophil % 4.5 % (0-6); Hematocrit 32 % (35-47); Hemoglobin 11.1 g/dl (12.0-16.0); Lymphocyte % 36.5 % (25-47); Mean Corpuscular HGB Conc 34 g/dl (31-36); Mean Corpuscular Hemoglobin 30 pg (27-31); Mean Corpuscular Volume 88 fL (80-97); Mean Platelet Volume 7.5 um3 (7.4-10.4); Nucleated Red Blood Cells % 0; Platelet Count 295 10^3/ul (150-450); Red Blood Count 3.69 10^6/ul (4.00-5.40); Red Cell Distribution Width 14 % (10.5-15); White Blood Count 6.7 10^3/ul (3.5-10.8)
[2017-10-15 07:02] LABS: EGFR Non-African American 82.7 (>60)
[2017-10-15] MEDS ORDERED: Magnesium Sulf 4 GM/100 ML IV* 4,000 MG/100 ML BAG IVPB ONE (07:32)
[2017-10-15] MEDS: Mometasone/Formoter 200/5 MDI INH SCH (08:24)
[2017-10-15] MEDS: Gabapentin CAP(*) 100 MG PO SCH (08:47)
[2017-10-15] MEDS: Cyanocobalamin TAB* 500 MCG PO SCH (08:47)
[2017-10-15] MEDS: Omeprazole CAP* 20 MG PO SCH (08:47)
[2017-10-15] MEDS: Aspirin EC TAB* 81 MG TAB.EC PO SCH (08:47)
[2017-10-15] MEDS: BuPROPion XL* 300 MG TAB.XL PO SCH (08:47)
[2017-10-15] MEDS: Lisinopril TAB* 5 MG PO SCH (08:48)
[2017-10-15] MEDS: Lidocaine PATCH 5%* 1 PATCH TRANSDERM SCH (08:48)
[2017-10-15] MEDS: Famotidine TAB* 20 MG PO SCH (08:48)
[2017-10-15] MEDS: Venlafaxine EXT RELEASE CAP* 75 MG PO SCH (08:48)
[2017-10-15] MEDS ORDERED: Cholecalciferol TAB* 1000 UNITS PO SCH (09:00)
--- NOTE | 2017-10-15 10:35 | DS ---
CC: MICHAEL Short; [facility] * DISCHARGE SUMMARY: DATE OF ADMISSION: 10/11/17 DATE OF DISCHARGE: 10/15/17 PRIMARY CARE PROVIDER: MICHAEL Short. ATTENDING PHYSICIAN WHILE IN THE HOSPITAL: Dr. Gabby Christina.* (DICTATED BY DALIA ALEX) PRIMARY DISCHARGE DIAGNOSES: 1. Thoracic compression fractures. 2. B12 deficiency. 3. Unsteadiness leading to frequent falls. SECONDARY DISCHARGE DIAGNOSES: 1. Chronic obstructive pulmonary disease with emphysema. 2. Diet controlled diabetes type 2. 3. Peripheral neuropathy. 4. Hypertension. 5. Hyperlipidemia. 6. Hypothyroidism, status post thyroidectomy. 7. Gastroesophageal reflux disease. 8. Anxiety. 9. Coronary artery disease. 10. Dementia. 11. Melanoma. STUDIES DONE WHILE IN THE HOSPITAL: Brain CT from 10/11/17 read as no acute intracranial pathology, chronic small vessel ischemic changes. Chest x-ray from 10/11/17 read as no active cardiopulmonary disease is noted. Electrocardiogram shows normal sinus rhythm. No ST segment abnormalities. No hypertrophy or enlargement. Rate of 66, QTc of 433. No other abnormalities. Thoracic spine CT from 10/11/17 read as subacute osteoporotic compression fracture of the T9, T10, T11 vertebral bodies as described, new compared with exam. Chronic osteoporosis, compression fracture L1, mild dorsal bulging in the mid column at T11 and L1 vertebral bodies without significant compromise of central canal. Negative for paravertebral hematoma. Cervical spine CT read as, no evidence of fracture, mild to moderate cervical spondylosis. Brain MRI from 10/11/17 read as no evidence for acute intracranial abnormalities. Findings most consistent with moderate to severe small vessel ischemic changes. Cervical spine MRI from 10/12/17 read as MRI images of the cervical spine are very limited to motion artifact. There is mild multilevel degenerative change most severe at C4, C5. Thoracolumbar spine x-ray upright shows compression fracture at the T9, T10, T11 as well L1 appears to be similar to that, identified on 10/11/17. MEDICATIONS AT DISCHARGE: 1. Venlafaxine extended release 150 mg p.o. daily. 2. Aspirin 81 mg p.o. daily. 3. Bupropion XL 300 mg p.o. daily. 4. Zantac 300 mg p.o. daily. 5. Advair Diskus 250/50 one puff inhalation b.i.d. 6. Nexium 40 mg p.o. daily. 7. Gabapentin 100 mg p.o. b.i.d. 8. Levothyroxine 88 mcg p.o. daily. 9. Imitrex 50 mg p.o. biweekly as needed. 10. Cholecalciferol 1000 units p.o. daily. 11. Lisinopril 5 mg p.o. daily. 12. Albuterol nebulizer 2.5 mg inhalation q. 6 hours as needed. 13. Tylenol 650 mg p.o. q. 6 hours as needed. 14. Calcium citrate 400 mg p.o. q. p.m. 15. Vitamin B12 of 1000 mcg p.o. daily. 16. Docusate 200 mg p.o. daily as needed. 17. Lidocaine patch 1 patch transdermal daily to the back. 18. Melatonin 3 mg p.o. at bedtime as needed for insomnia. 19. Nicotine inhaler 10 mg inhalation q. 2 hours as needed. 20. OxyContin 20 mg p.o. 1100 and 2300. 21. Tiline 1 tab p.o. q. 6 hours as needed. New Medications at discharge: 1. OxyContin. 2. Nicotine inhaler. 3. Melatonin. 4. Lidocaine patch. 5. Docusate. 6. Vitamin B12. 7. Calcium. 8. Tylenol. Medications discontinued at discharge: 1. Amlodipine 2.5 mg p.o. daily. 2. Trazodone 50 mg p.o. at bedtime. HOSPITAL COURSE: This is a brief summary of the patient's presentation. For more details please see the history and physical from DALIA Alex, on . In brief, the patient is a 77-year-old female with past medical history significant for the above who presented to the emergency department with a significant decrease in her mental status as well as significant increase in the frequency of her falls, including 3 on the day before admission with severe back pain and weakness in her left leg. The patient was a very poor historian, was unable to describe further the situation surrounding her falls; however, her daughter states that she has had several in the past in the bathroom without obvious deformity or injury. The patient reported dysuria and urinary incontinence which is a long-term problem for her, but no incontinence of stool. The patient also had pain from her back wrapping around her right side. The patient also complained of pain in her bilateral feet which has been going on for a long time. The patient also stated she has lost 45 pounds in the past year, but this was unsubstantiated. The patient had other signs of infection, had no other symptoms. On exam, the patient was found to be ataxic and had new compression fracture at the T9, T10, T11 and a chronic fracture at L1. The patient was admitted to the hospital, had a negative urine culture, negative MRI of the brain. Cervical spine MRI as above. The patient was seen in consultation by Dr. Jaleesa De La Vega of Neurology who thought there are possible upper motor neuron signs on her exam including hyperreflexia and positive Babinski in her left lower extremity and spinal pathology was ruled out with an MRI of the spine. The patient had no other significant abnormalities on her neurologic exam except for being confused at her baseline. She recommended continuing to attempt to decrease the patient's neuroactive medications. The patient was also seen in consultation by Dr. Zaid Pelayo of Neurosurgery who recommended conservative treatment and a possible thoracolumbar orthosis for comfort; however, the patient declined this and was not having significant pain. He recommended an upright x-ray of the thoracic and lumbar spine which was performed and read as above. The patient was found to have orthostatic hypotension which did not resolve. The patient's amlodipine was stopped. The patient was never symptomatic from her orthostatic hypotension. The patient continued to be ataxic on exam. The patient was seen in consultation by Physical Therapy and Occupational Therapy who identified rehab needs for the patient in order to improve her balance and decrease her fall risk. The patient had a vitamin D level which was 21. The patient was already started on vitamin D supplementation which was increased to 1000 units daily as above. The patient vitamin B12 level was found to be 295 which is borderline low and methylmalonic acid was sent and the patient was started on B12 supplementation. The patient has noted to be B12 deficient since 2014 and this may be contributing to her neuropathy and falls. The patient had negative blood cultures, negative urine culture. The patient had no difficulty swallowing. It was discussed at length with the patient's family that she would benefit from rehab before returning home. The patient was found to be hyperthyroid with a depressed TSH and elevated T4 on admission. The patient's family states that she had probably been taking excess medications outside of her pill box which could include levothyroxine and no adjustments were made to her levothyroxine dosing at this time due to the patient's hyperthyroidism likely being from increased levothyroxine intake. It was also discussed with the patient's family that she would probably benefit from increased help with her medications if she were to return home and that supervised taking of her medications would likely be the most appropriately course for her. Family is in agreement and a referral was sent out to [facility] with a tentative discharge plan for 10/15/17 for rehab. DISCHARGE PLAN: The patient will be discharged to [facility] on . The patient's family will transport. The patient will get physical therapy and occupational therapy to help improve her balance with the initial goal of her returning home when it is safe. The patient will be continued on B12 and vitamin D supplementation as above to help with her balance and decrease her risk of osteoporotic compression fractures if she is to fall. The patient should be started on a bisphosphonate or other anti-bone resorptive therapy in 4 to 6 weeks after discharge in order to decrease her risk of continued compression fractures. The patient should follow up with the primary care provider within 1 week after discharge from [facility]. Consideration for long-term placement should be made. If the patient is having significant pain, a thoracolumbar spine orthosis should be considered. However, the patient refused this and would likely be noncompliant with this intervention. Per her report, the patient should be attempted to be weaned off of her psychoactive medications as tolerated. The patient's trazodone was discontinued while in the hospital and the patient's OxyContin was decreased. The patient should have a heart-healthy diet without caffeine, engage in activity as tolerated in a safe manner. The patient should return to the hospital for injury related to falls, chest pain, shortness of breath, or other alarming symptoms. TIME SPENT: Approximately 60 minutes was spent on this discharge, 30 of which was spent [id number] with the patient obtaining the history and physical and discussing treatment plan. DALIA ALEX [id number]/[facility] #: [id number] [place]
[2017-10-15] MEDS: oxyCODONE SR TAB(*) 20 MG TAB.SR PO SCH (10:58)
[2017-10-15 11:20] VITALS: BP 130/45
--- NOTE | 2017-10-15 14:34 | PN ---
Subjective Date of Service: 10/15/17 Interval History: Patient has no pain again today. In good spirits, denies CP, SOB, N/V, abdominal pain, diarrhea, F/C, Dysuria or other pain. Family History: Unchanged from Admission Social History: Unchanged from Admission Past Medical History: Unchanged from Admission Objective Vital Signs - 8 hr 10/15/17 10/15/17 10/15/17 06:35 08:00 08:25 Temperature 98.2 F Pulse Rate 74 74 Respiratory 16 17 14 Rate Blood Pressure 129/64 (mmHg) O2 Sat by Pulse 95 94 Oximetry 10/15/17 10/15/17 10/15/17 08:47 10:47 10:58 Temperature Pulse Rate Respiratory 17 17 17 Rate Blood Pressure (mmHg) O2 Sat by Pulse Oximetry 10/15/17 11:13 Temperature 98.0 F Pulse Rate 66 Respiratory 16 Rate Blood Pressure 130/45 (mmHg) O2 Sat by Pulse 95 Oximetry Oxygen Devices in Use Now: None Appearance: Patient is a 77yo female who appears stated age and is sitting in the bed in [facility]. Eyes: No Scleral Icterus, PERRLA Ears/Nose/Mouth/Throat: NL Teeth, Lips, Gums, Clear Oropharnyx, Mucous Membranes Moist Neck: NL Appearance and Movements; NL JVP, Trachea Midline Respiratory: Symmetrical Chest Expansion and Respiratory Effort, Clear to Auscultation Cardiovascular: NL Sounds; No Murmurs; No JVD, RRR, No Edema Abdominal: NL Sounds; No Tenderness; No Distention, No Hepatosplenomegaly Lymphatic: No Cervical Adenopathy Extremities: No Edema, No Clubbing, Cyanosis Skin: No Rash or Ulcers, No Nodules or Sclerosis Neurological: NL Sensation, NL Muscle Strength and Tone, - - A/Ox1. Neurological exam Result Diagrams: 10/15/17 06:24 10/15/17 06:24 Additional Lab and Data: Lab Results 10/11/17 10/11/17 10/11/17 Range/Units 16:02 16:02 16:02 WBC 7.0 (3.5-10.8) 10^3/ul RBC 3.96 L (4.00-5.40) 10^6/ul Hgb 11.7 L (12.0-16.0) g/dl Hct 35 (35-47) % MCV 89 (80-97) fL MCH 29 (27-31) pg MCHC 33 (31-36) g/dl RDW 14 (10.5-15) % Plt Count 327 (150-450) 10^3/ul MPV 7.5 (7.4-10.4) um3 Neut % (Auto) 50.4 (38-83) % Lymph % (Auto) 34.3 (25-47) % Wetzel % (Auto) 9.6 H (0-7) % Eos % (Auto) 4.4 (0-6) % Baso % (Auto) 1.3 (0-2) % Absolute Neuts (auto) 3.5 (1.5-7.7) 10^3/ul Absolute Lymphs (auto) 2.4 (1.0-4.8) 10^3/ul Absolute Monos (auto) 0.7 (0-0.8) 10^3/ul Absolute Eos (auto) 0.3 (0-0.6) 10^3/ul Absolute Basos (auto) 0.1 (0-0.2) 10^3/ul Absolute Nucleated RBC 0 10^3/ul Nucleated RBC % 0.1 INR (Anticoag Therapy) 0.98 (0.77-1.02) Sodium 138 (135-145) mmol/L Potassium 3.8 (3.5-5.0) mmol/L Chloride 103 (101-111) mmol/L Carbon Dioxide 28 (22-32) mmol/L Anion Gap 7 (2-11) mmol/L BUN 11 (6-24) mg/dL Creatinine 0.71 (0.51-0.95) mg/dL Est GFR ( Amer) 96.8 (>60) Est GFR (Non-Af Amer) 80.0 (>60) BUN/Creatinine Ratio 15.5 (8-20) Glucose 76 (70-100) mg/dL Lactic Acid (0.5-2.0) mmol/L Calcium 9.4 (8.6-10.3) mg/dL Total Bilirubin 0.40 (0.2-1.0) mg/dL AST 12 L (13-39) U/L ALT 8 (7-52) U/L Alkaline Phosphatase 164 H (34-104) U/L Total Creatine Kinase 115 (10-223) U/L Troponin I 0.01 (<0.04) ng/mL Total Protein 6.7 (6.4-8.9) g/dL Albumin 3.5 (3.2-5.2) g/dL Globulin 3.2 (2-4) g/dL Albumin/Globulin Ratio 1.1 (1-3) TSH 0.03 L (0.34-5.60) mcIU/mL Acetaminophen < 15 mcg/mL Serum Alcohol < 10 (<10) mg/dL 10/11/17 Range/Units 16:02 WBC (3.5-10.8) 10^3/ul RBC (4.00-5.40) 10^6/ul Hgb (12.0-16.0) g/dl Hct (35-47) % MCV (80-97) fL MCH (27-31) pg MCHC (31-36) g/dl RDW (10.5-15) % Plt Count (150-450) 10^3/ul MPV (7.4-10.4) um3 Neut % (Auto) (38-83) % Lymph % (Auto) (25-47) % Wetzel % (Auto) (0-7) % Eos % (Auto) (0-6) % Baso % (Auto) (0-2) % Absolute Neuts (auto) (1.5-7.7) 10^3/ul Absolute Lymphs (auto) (1.0-4.8) 10^3/ul Absolute Monos (auto) (0-0.8) 10^3/ul Absolute Eos (auto) (0-0.6) 10^3/ul Absolute Basos (auto) (0-0.2) 10^3/ul Absolute Nucleated RBC 10^3/ul Nucleated RBC % INR (Anticoag Therapy) (0.77-1.02) Sodium (135-145) mmol/L Potassium (3.5-5.0) mmol/L Chloride (101-111) mmol/L Carbon Dioxide (22-32) mmol/L Anion Gap (2-11) mmol/L BUN (6-24) mg/dL Creatinine (0.51-0.95) mg/dL Est GFR ( Amer) (>60) Est GFR (Non-Af Amer) (>60) BUN/Creatinine Ratio (8-20) Glucose (70-100) mg/dL Lactic Acid 0.7 (0.5-2.0) mmol/L Calcium (8.6-10.3) mg/dL Total Bilirubin (0.2-1.0) mg/dL AST (13-39) U/L ALT (7-52) U/L Alkaline Phosphatase (34-104) U/L Total Creatine Kinase (10-223) U/L Troponin I (<0.04) ng/mL Total Protein (6.4-8.9) g/dL Albumin (3.2-5.2) g/dL Globulin (2-4) g/dL Albumin/Globulin Ratio (1-3) TSH (0.34-5.60) mcIU/mL Acetaminophen mcg/mL Serum Alcohol (<10) mg/dL Microbiology and Other Data: Microbiology 10/11/17 18:20 Urine Culture - Preliminary Urine Escherichia Coli 10/11/17 16:03 Aerobic Blood Culture - Preliminary Blood Venous No Growth Day 1 Anaerobic Blood Culture - Preliminary No Growth Day 1 10/11/17 15:33 Aerobic Blood Culture - Preliminary Blood Venous No Growth Day 1 Anaerobic Blood Culture - Preliminary No Growth Day 1 Assess/Plan/Problems-Billing Assessment: Patient is a 77yo female with a PHM for COPD, CAD, Chronic Pain, A/D, Peripheral Neuropathy, who is admitted due to frequent falls and increasing confusion with concerns for safety at home. - Patient Problems (1) Multiple falls Status: Acute Code(s): R29.6 - REPEATED FALLS SNOMED Code(s): 995949936 Comment: Unclear Cause. Appreciate Neurological consult. Concern for Cervical Spinal disease due to UMN signs on exam. MRI poor quality with no obvious cord impingement. No lesions. Orthostatic after fluids. No syncope or lightheadedness on standing. Encourage oral intake. Ataxic on exam, possible related to peripheral neuropathy. B12 deficient since at least 2013. Replace and check MMA. PT/OT. Plan for rehab tomorrow. (2) Compression fracture Status: Acute Code(s): TCJ5063 - SNOMED Code(s): 246179114 Comment: At T9-11 and L1. Age indeterminant. Appreciate Neurosurigcal input. Pain well controlled. Conservative management. No instability on XR. Patient refuses bracing and has good pain control. Would benefit from bisphosphonate therapy in 2 weeks for prevention of further fracture. (3) CAD (coronary artery disease) Status: Chronic Code(s): I25.10 - ATHSCL HEART DISEASE OF [place] CORONARY ARTERY W/O ANG PCTRS SNOMED Code(s): 53258900 Comment: Continue ASA, Lisinopril. (4) COPD (chronic obstructive pulmonary disease) Status: Chronic Code(s): J44.9 - CHRONIC OBSTRUCTIVE PULMONARY DISEASE, UNSPECIFIED SNOMED Code(s): 02607352 Comment: Continue tiotropium, dual inhaler. Albuterol PRN, No Exacerbation. (5) Chronic pain Status: Chronic Code(s): G89.29 - OTHER CHRONIC PAIN SNOMED Code(s): 52946196 Comment: Continue opiates, Gabapentin, and Venlafaxine. Possibly replated to peripheral neuropathy and [facility] spinal disease. Decrease Oxycontin due to falls and adequate pain control. (6) Diabetes Status: Chronic Code(s): E11.9 - TYPE 2 DIABETES MELLITUS WITHOUT COMPLICATIONS SNOMED Code(s): 07420536 Comment: Diet controlled. No Elevated fasting glucose. (7) GERD (gastroesophageal reflux disease) Status: Chronic Code(s): K21.9 - GASTRO-ESOPHAGEAL REFLUX DISEASE WITHOUT ESOPHAGITIS SNOMED Code(s): 962941333 Comment: Continue Omeprazole. (8) HTN (hypertension) Status: Chronic Code(s): I10 - ESSENTIAL (PRIMARY) HYPERTENSION SNOMED Code( s): 81065866 Comment: Continue amlodipine and lisinopril. Orthostatic after fluids. Encourage oral intake. (9) Hypothyroid Status: Chronic Code(s): E03.9 - HYPOTHYROIDISM, UNSPECIFIED SNOMED Code(s) : 31596284 Comment: TSH low with high T4. Concern for multuple dosing with patients home synthroid. Repeat in 3 months after supervised medication compliance. (10) Osteoporosis Status: Acute Code(s): M81.0 - AGE-RELATED OSTEOPOROSIS W/O CURRENT PATHOLOGICAL FRACTURE SNOMED Code(s): 76655243 Comment: On XR with multiple fractures. Will increase vitamin D supplementation with goal of 30-50. Start Calcium supplementation. Recommend bisphosphonate therapy in 4-6 weeks. (11) B12 deficiency Status: Acute Code(s): E53.8 - DEFICIENCY OF OTHER SPECIFIED B GROUP VITAMINS SNOMED Code(s): 165461751 Comment: Borderline low, start supplementation and MMA pending. Possible contributor to peripheral neuropathy and poor balance. (12) Full code status Status: Acute Code(s): Z78.9 - OTHER SPECIFIED HEALTH STATUS SNOMED Code(s) : 815881837 (13) DVT prophylaxis Status: Acute Code(s): KXC5646 - SNOMED Code(s): 736000755 Comment: Heparin SubQ. Status and Disposition: Inpatient. Will likely need rehab. Patient obviously lacks capacity to refuse rehab placement. Will Obtain formal psychiatry consultation if patient continues to refuse placement.
== END 2017-10-15 11:30 | DRG 543 ==
LOC: ED 13:22 → MED 21:00
PROVIDERS: ADMIT Internal Medicine; ATTEND Hospitalist
DX: M80.88XA Other osteoporosis with current pathological fracture, vertebra(e), initial encounter for fracture (principal); R44.3 Hallucinations, unspecified; E11.42 Type 2 diabetes mellitus with diabetic polyneuropathy; I95.1 Orthostatic hypotension; E53.8 Deficiency of other specified B group vitamins; R26.81 Unsteadiness on feet; S41.112A Laceration without foreign body of left upper arm, initial encounter; S41.111A Laceration without foreign body of right upper arm, initial encounter; W18.30XA Fall on same level, unspecified, initial encounter; J43.9 Emphysema, unspecified; E78.5 Hyperlipidemia, unspecified; K21.9 Gastro-esophageal reflux disease without esophagitis; F41.9 Anxiety disorder, unspecified; I25.10 Atherosclerotic heart disease of native coronary artery without angina pectoris; I11.9 Hypertensive heart disease without heart failure; F03.90 Unspecified dementia, unspecified severity, without behavioral disturbance, psychotic disturbance, mood disturbance, and anxiety; E89.0 Postprocedural hypothyroidism; R32 Unspecified urinary incontinence; F17.210 Nicotine dependence, cigarettes, uncomplicated; F32.9 Major depressive disorder, single episode, unspecified; G89.29 Other chronic pain; M50.121 Cervical disc disorder at C4-C5 level with radiculopathy; Z91.81 History of falling; Y92.009 Unspecified place in unspecified non-institutional (private) residence as the place of occurrence of the external cause; Z79.82 Long term (current) use of aspirin; Z79.891 Long term (current) use of opiate analgesic; Z79.899 Other long term (current) drug therapy; Z80.9 Family history of malignant neoplasm, unspecified; Z82.49 Family history of ischemic heart disease and other diseases of the circulatory system; Z85.820 Personal history of malignant melanoma of skin
CPT/HCPCS: 36415; 70450; 70551; 71045; 72080; 72125; 72128; 72141; 80048; 80053; 80320; 80329; 81003; 81015; 82306; 82550; 82607; 83605; 83735; 83921; 84436; 84443; 84479; 84484; 85025; 85610; 87040; 87077; 87086; 87186; 90715; 93005; 94640; 99285; A9270-GY; G0480; G8978-GP-CJ; G8979-GP-CI; G8987-GO-CK; G8988-GO-CI; J1630; J1644; J3475

== ENCOUNTER 2017-10-16 06:42 | Emergency (ER) | payer MEDICARE, MEDICAID ==
--- NOTE | 2017-10-16 07:31 | ED ---
Head Injury - HPI Summary HPI Summary: This is Staci moore, documenting for attending Waldo Chin MD. 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 Pain is 8/10 in severity, upon triage. Children report she was recently released from the hospital to rehab where she fell. Denies LOC, neck pain chest pain, new extremity pain, and abdominal pain. Patient is on 3L of O2 at home. - History Of Current Complaint Chief Complaint: EDHeadInjury Stated Complaint: FALL Time Seen by Provider: 10/16/17 06:49 Hx Obtained From: Patient, Family/Manager Corporate Responsibility Hx Last Menstrual Period: post menopause Mechanism Of Injury: Fall From A Standing Position Onset/Duration: Started Hours Ago Onset of Pain: Immediate Pain Intensity: 8 Pain Scale Used: 0-10 Numeric Location: Diffuse Associated Signs And Symptoms: Negative Related History: Similar Episode/Dx as - recent fall - Allergies/Home Medications Allergies/Adverse Reactions: Allergies Allergy/AdvReac Type Severity Reaction Status Date / Time No Known Allergies Allergy Verified 10/16/17 07:08 PMH/Surg Hx/FS Hx/Imm Hx Endocrine/Hematology History: Reports: Hx Diabetes - NIDDM, Hx Thyroid Disease - hypothyroid Denies: Hx Systemic Lupus Erythematosus Cardiovascular History: Reports: Hx Angina, Hx Coronary Artery Disease, Hx Hypercholesterolemia, Hx Hypertension, Hx Myocardial Infarction, Hx Rheumatic Fever Denies: Hx Congestive Heart Failure, Hx Pacemaker/ICD Comment Only: Other Cardiovascular Problems/Disorders - heart murmer since 16 years old Respiratory History: Reports: Hx Chronic Obstructive Pulmonary Disease (COPD), Hx Seasonal Allergies Denies: Hx Asthma, Other Respiratory Problems/Disorders GI History: Reports: Hx Gastroesophageal Reflux Disease, Hx Hiatal Hernia, Other GI Disorders - hiatal hernia Denies: Hx Ulcer History: Reports: Hx Renal Disease - hx of cyst removal, Other Problems/ Disorders - cysts removed from kidney Denies: Hx Dialysis Musculoskeletal History: Reports: Hx Arthritis - BILATERAL KNEES, BACK, BILATERAL HANDS, Hx Back Problems Denies: Hx Rheumatoid Arthritis Sensory History: Denies: Hx Contacts or Glasses, Hx Hearing Aid Opthamlomology History: Denies: Hx Contacts or Glasses Neurological History: Reports: Hx Dementia, Hx Headaches, Hx Migraine, Other Neuro Impairments/Disorders - COMPRESSION FX T9,T10,T11 AND L1 Denies: Hx Seizures Psychiatric History: Reports: Hx Anxiety, Hx Depression Denies: Hx Panic Disorder, Hx Substance Abuse - Cancer History Cancer Type, Location and Year: Reports tumor in pelvis , melanoma, Hx Chemotherapy: No Hx Radiation Therapy: No Hx Palliative Cancer Treatment: No - Surgical History Surgery Procedure, Year, and Place: CATARACTS; PARTIAL THYROIDECTOMY; PAVAN; HYSTERECTOMY; T&A; APPENDECTOMY; CYST REMOVED FROM KIDNEY; BACK SURGERY; MELANOMA REMOVED FROM LEFT ARM; NASAL SURGERY Hx Anesthesia Reactions: No - Immunization History Date of Tetanus Vaccine: Unk Date of Influenza Vaccine: 01/09/13 Infectious Disease History: No Infectious Disease History: Reports: Hx Shingles Denies: Hx Hepatitis, Hx Human Immunodeficiency Virus (HIV), History Other Infectious Disease, Traveled Outside the [place] in Last 30 Days - Family History Known Family History: Positive: Cardiac Disease - CHF, Other - CANCER - Social History Alcohol Use: None Substance Use Type: Reports: None Smoking Status (MU): Light Every Day Tobacco Smoker Type: Cigarettes Amount Used/How Often: 1/2 PPD Length of Time of Smoking/Using Tobacco: 60 years Have You Smoked in the Last Year: Yes Review of Systems Cardiovascular: Negative Respiratory: Negative Musculoskeletal: Negative - neck pain Positive: Headache All Other Systems Reviewed And Are Negative: Yes Physical Exam - Summary Physical Exam Summary: GENERAL: Patient is a well developed and nourished female who is lying comfortable in the stretcher. Patient is not in any acute respiratory distress. HEAD AND FACE: Normocephalic EYES: PERRLA, EOMI x 2. EARS: Hearing grossly intact. MOUTH: Oropharynx within normal limits. NECK: Supple, trachea is midline, no adenopathy, no JVD, no carotid bruit. No C- Spine tenderness CHEST: Symmetric, no tenderness at palpation LUNGS: Clear to auscultation bilaterally. No wheezing or crackles. CVS: Regular rate and rhythm, S1 and S2 present, no murmurs or gallops appreciated. ABDOMEN: Soft, non-tender. Bowel sounds are normal. No abdominal abnormal pulsations. EXTREMITIES: Full ROM in all major joints, no edema, no cyanosis or clubbing. NEURO: Alert and oriented x 3. No acute neurological deficits. Speech is normal and follows commands. SKIN: Dry and warm GCS: 15 Triage Information Reviewed: Yes Vital Signs On Initial Exam: Initial Vitals Temp Pulse Resp BP Pulse Ox 98.6 F 66 18 150/73 89 10/16/17 06:44 10/16/17 06:44 10/16/17 06:44 10/16/17 06:44 10/16/17 06:44 Vital Signs Reviewed: Yes Diagnostics - Vital Signs Vital Signs Temp Pulse Resp BP Pulse Ox 10/16/17 06:44 98.6 F 66 18 150/73 89 - Laboratory Lab Statement: Any lab studies that have been ordered have been reviewed, and results considered in the medical decision making process. - CT Brain CT CT Interpretation Completed By: Radiologist - NO ACUTE INTRACRANIAL PATHOLOGY. CHRONIC SMALL VESSEL ISCHEMIC CHANGE ED Physician has reviewed this report. C Spine CT CT Interpretation Completed By: Radiologist - 1. DEGENERATIVE DISC DISEASE AND OSTEOARTHRITIS. 2. NO ACUTE OSSEOUS INJURY TO THE CERVICAL SPINE. 3. EMPHYSEMA. 4. ATHEROSCLEROSIS. ED Physician has reviewed this report. Re-Evaluation - Re-Evaluation 1 Re-Evaluation Time: 09:00 Change: Unchanged - Patient continues to deny any arm, shoulder or leg pain. All major joints with FROM. 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 Pain is 8/10 in severity, upon triage. Children report she was recently released from the hospital to rehab where she fell. Denies LOC, neck pain chest pain, new extremity pain, and abdominal pain. Patient is on 3L of O2 at home. Brain CT revealing:NO ACUTE INTRACRANIAL PATHOLOGY. CHRONIC SMALL VESSEL ISCHEMIC CHANGE. C-Spine CT reveals: 1. DEGENERATIVE DISC DISEASE AND OSTEOARTHRITIS. 2. NO ACUTE OSSEOUS INJURY TO THE CERVICAL SPINE. 3. EMPHYSEMA. 4. ATHEROSCLEROSIS. Patient is given 975mg PO Ibuprofen. GCS of 15. Results were discussed with patient. Patient is feeling better and mechancially stable. patient will be discharged home. - Diagnoses Provider Diagnoses: Fall, Head injury Discharge - Sign-Out/Discharge Documenting (check all that apply): Patient Departure - Discharge Plan Condition: Stable Disposition: HOME Patient Education Materials: Head Injury (ED), Fall Prevention (ED) Referrals: Helene Rizo [Primary Care Provider] - 2 Days Additional Instructions: RETURN TO THE EMERGENCY DEPARTMENT FOR CHANGING OR WORSENING SYMPTOMS. - Billing Disposition and Condition Condition: STABLE Disposition: Home
[2017-10-16] MEDS ORDERED: Acetaminophen TAB* 325 MG PO ONE (07:55)
--- NOTE | 2017-10-16 08:27 | RAD ---
HISTORY: Fall w/ head pain COMPARISONS: October 11, 2017 TECHNIQUE: Multiple contiguous axial CT scans were obtained of the head without intravenous contrast. FINDINGS: HEMORRHAGE/INFARCT: There is no hemorrhage or acute infarct. MASSES/SHIFT: There is no mass or shift. EXTRA-AXIAL SPACES: There are no extra-axial fluid collections. SULCI AND VENTRICLES: The sulci and ventricles are normal in size and position for the patient's stated age. CEREBRUM: There is hypoattenuation of the periventricular and subcortical white matter. BRAINSTEM: There are no focal parenchymal abnormalities. CEREBELLUM: There are no focal parenchymal abnormalities. VESSELS: There is calcification of the cavernous segments of the internal carotid arteries bilaterally and of the distal vertebral arteries bilaterally. PARANASAL SINUSES: The paranasal sinuses are clear. ORBITS: The orbits are unremarkable. BONES AND SOFT TISSUE: No bone or soft tissue abnormalities are noted. OTHER: None IMPRESSION: NO ACUTE INTRACRANIAL PATHOLOGY. CHRONIC SMALL VESSEL ISCHEMIC CHANGE
--- NOTE | 2017-10-16 08:30 | RAD ---
HISTORY: Fall w/ neck pain COMPARISONS: October 11, 2017 TECHNIQUE: Multiple contiguous axial CT scans were obtained of the cervical spine without intravenous contrast, with coronal and sagittal multiplanar reformations. FINDINGS: BRAIN: The visualized brain is unremarkable CENTRAL CANAL: Evaluation of the central canal is limited on CT technique; however, there is no obvious canalicular mass or epidural hemorrhage. ALIGNMENT: There is scoliotic curvature of the spine. VERTEBRAL BODIES: The odontoid process is intact. The atlantoaxial intervals are symmetric. The vertebral bodies are normal in attenuation, without fracture. JOINTS: There is uncovertebral and facet osteoarthritis. There is no subluxation or dislocation. MUSCULATURE: Unremarkable INTERVERTEBRAL DISCS: There is diffuse loss of intervertebral disc height. AXIAL IMAGES: C2-C3: There is no osseous neural foraminal narrowing or central canal stenosis. C3-C4: There is left greater than right uncovertebral and facet hypertrophy. There is severe left and mild right neural foraminal narrowing. There is no osseous central canal stenosis. C4-C5: There is no osseous neural foraminal narrowing or central canal stenosis. C5-C6: There is no osseous neural foraminal narrowing or central canal stenosis. C6-C7: There is no osseous neural foraminal narrowing or central canal stenosis. C7-T1: There is no osseous neural foraminal narrowing or central canal stenosis. SOFT TISSUES: The visualized soft tissues of the neck are unremarkable. The prevertebral fat stripe is preserved. OTHER: There is biapical emphysematous change. There is calcification of the carotid bifurcations. IMPRESSION: 1. DEGENERATIVE DISC DISEASE AND OSTEOARTHRITIS. 2. NO ACUTE OSSEOUS INJURY TO THE CERVICAL SPINE. 3. EMPHYSEMA. 4. ATHEROSCLEROSIS.
[2017-10-16 11:51] VITALS: BP 139/87
== END 2017-10-16 11:49 | disposition home or self-care (01) ==
LOC: ED 06:42
DX: S09.90XA Unspecified injury of head, initial encounter (principal); W18.30XA Fall on same level, unspecified, initial encounter; Z91.81 History of falling; Y93.9 Activity, unspecified; Y92.9 Unspecified place or not applicable; M50.30 Other cervical disc degeneration, unspecified cervical region; M47.812 Spondylosis without myelopathy or radiculopathy, cervical region; E11.9 Type 2 diabetes mellitus without complications; E03.9 Hypothyroidism, unspecified; 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native coronary artery with unspecified angina pectoris; I10 Essential (primary) hypertension; E78.00 Pure hypercholesterolemia, unspecified; J44.9 Chronic obstructive pulmonary disease, unspecified; K21.9 Gastro-esophageal reflux disease without esophagitis; K44.9 Diaphragmatic hernia without obstruction or gangrene; F03.90 Unspecified dementia, unspecified severity, without behavioral disturbance, psychotic disturbance, mood disturbance, and anxiety; F41.9 Anxiety disorder, unspecified; F32.9 Major depressive disorder, single episode, unspecified; Z85.820 Personal history of malignant melanoma of skin; Z82.49 Family history of ischemic heart disease and other diseases of the circulatory system; Z80.9 Family history of malignant neoplasm, unspecified; F17.210 Nicotine dependence, cigarettes, uncomplicated
CPT/HCPCS: 70450; 72125; 99282; A9270-GY

== ENCOUNTER 2017-11-19 14:54 | Emergency (ER) | payer MEDICARE, MEDICAID ==
[2017-11-19] MEDS ORDERED: HYDROcodone/ACETAMIN 5-325 MG* 1 TAB PO ONE (15:55)
--- NOTE | 2017-11-19 15:57 | UC ---
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 The pain is rated 9/10 in severity and described as stabbing. She tripped over her oxygen machine and fell backward into a set of glass doors, impacting her L shoulder against the floor. She denies any head impact during the fall. The pain is aggravated by deep breaths. She notes L rib pain and back pain (chronic ) but denies SOB and difficulty walking. The pt did not take any pain medication after the incident.She reports a hx of frequent falls. - History of Current Complaint Chief Complaint: UCUpperExtremity Stated Complaint: SHOULDER INJURY Time Seen by Provider: 11/19/17 15:47 Hx Obtained From: Patient Hx Last Menstrual Period: post menopause Onset/Duration: Sudden Onset, Still Present Severity Currently: Severe Pain Intensity: 9 Pain Scale Used: 0-10 Numeric Character: Sharp Aggravating Factor(s): Other - Deep breaths Alleviating Factor(s): Nothing Associated Signs And Symptoms: Positive: Negative - SOB, difficulty walking, Other - Positive: L rib pain, back pain (chronic) - Allergies/Home Medications Allergies/Adverse Reactions: Allergies Allergy/AdvReac Type Severity Reaction Status Date / Time oxycodone [From OxyContin] Allergy Altered Verified 11/19/17 15:22 Mental Status PMH/Surg Hx/FS Hx/Imm Hx Previously Healthy: No Endocrine History: Diabetes - Type 2 DM, Hypothyroidism, Dyslipidemia - HLD Cardiovascular History: Other - Angina Other Cardiovascular History: . Respiratory History: COPD GI/ History: Gastroesophageal Reflux - Surgical History Surgical History: Yes Surgery Procedure, Year, and Place: CATARACTS; PARTIAL THYROIDECTOMY; PAVAN; HYSTERECTOMY; T&A; APPENDECTOMY; CYST REMOVED FROM KIDNEY; BACK SURGERY; MELANOMA REMOVED FROM LEFT ARM; NASAL SURGERY - Family History Known Family History: Positive: Unknown, Cardiac Disease - CHF, Other - CANCER - Social History Occupation: Retired Lives: With Family Alcohol Use: None Substance Use Type: None Smoking Status (MU): Heavy Every Day Tobacco Smoker Type: Cigarettes Amount Used/How Often: 1/2 PPD Length of Time of Smoking/Using Tobacco: 60 years Have You Smoked in the Last Year: Yes When Did the Patient Quit Smoking/Using Tobacco: 2 weeks ago Household Exposure Type: Cigarettes - Immunization History Most Recent Influenza Vaccination: 2014 Most Recent Tetanus Shot: utd Most Recent Pneumonia Vaccination: Within 5 years Review of Systems Respiratory: Negative - SOB Musculoskeletal: Negative - Difficulty walking, Other: - L shoulder pain, L rib pain, chronic pain (chronic) All Other Systems Reviewed And Are Negative: Yes Physical Exam - Summary Physical Exam Summary: General: well-appearing, mild to moderate pain stress Skin: warm, color reflects adequate perfusion, dry Head: normal Eyes: EOMI, JOHNNIE ENT: normal Neck: supple, nontender Respiratory: CTA, breath sounds present Cardiovascular: RRR Abdomen: soft, nontender Bowel: present Musculoskeletal: Tenderness in the L posterior and lateral ribs; tenderness at the L shoulder, strength/ROM intact; Lower back non-tender; has good pulses Neurological: sensory/motor intact, A&O x3 GCS:15 Psychological: affect/mood appropriate Triage Information Reviewed: Yes Vital Signs: Initial Vital Signs Temp 98.0 F 11/19/17 15:17 Pulse 74 11/19/17 15:17 Resp 18 11/19/17 15:17 BP 152/76 11/19/17 15:17 Pulse Ox 97 11/19/17 15:17 Vital Signs Reviewed: Yes Diagnostics - Radiology Thoracic Spine CT Radiology Interpretation Completed By: Radiologist - IMPRESSION: Compression fracture of T9, T10, T11 and L1 which are unchanged from previous exam. No paravertebral soft tissue is noted. The ED physician has reviewed this radiology report. L Shoulder X-Ray Radiology Interpretation Completed By: Radiologist - IMPRESSION: AC joint arthritis without evidence of fracture. The ED physician has reviewed this radiology report. L Humerus X-Ray Radiology Interpretation Completed By: Radiologist - IMPRESSION: No fracture of the left humerus is noted. The ED physician has reviewed this radiology report. Cervical Spine CT Radiology Interpretation Completed By: Radiologist - IMPRESSION: 1. DEGENERATIVE DISC DISEASE AND OSTEOARTHRITIS. 2. NO ACUTE OSSEOUS INJURY TO THE CERVICAL SPINE. 3. EMPHYSEMA. 4. ATHEROSCLEROSIS. The ED physician has reviewed this radiology report. Brain CT Radiology Interpretation Completed By: Radiologist - IMPRESSION: NO ACUTE INTRACRANIAL PATHOLOGY. CHRONIC SMALL VESSEL ICHEMIC CHANGE The ED physician has reviewed this radiology report. CXR Radiology Interpretation Completed By: Radiologist - IMPRESSION: No evidence of pneumothorax or alveolar consolidation is noted The ED physician has reviewed this radioology report. Re-Evaluation - Re-Evaluation First Eval Re-Evaluation Time: 17:45 Change: Improved - Pt reports decreased pain after taking hydrocordone. Discussed the X-Ray results, CT results, and discharge plan with the pt. Upper Extremity Course/Dx - Course Course Of Treatment: DISCUSSED X-RAY RESULTS WITH THE PATIENT AND HER DAUGHTER. THE THORACIC COMPRESSION FRACTURES ARE NOT NEW. F/U PMD; RECHECK SOONER IF WORSE. - Differential Dx/Diagnosis Provider Diagnoses: RIB PAIN. LEFT SHOULDER PAIN. THORACIC COMPRESSION FRACTURES Discharge - Sign-Out/Discharge Documenting (check all that apply): Patient Departure All imaging exams completed and their final reports reviewed: Yes - Discharge Plan Condition: Stable Disposition: HOME Prescriptions: oxyCODONE TAB* [Roxycodone TAB 5 mg*] 5 mg PO Q4H PRN #30 tab MDD 6 PRN Reason: Pain Patient Education Materials: Rib Fracture (ED), Vertebral Compression Fracture (ED), Back Pain (ED), Shoulder Pain (ED) Referrals: Helene Rizo [Primary Care Provider] - Additional Instructions: FOLLOW UP WITH YOUR DOCTOR. USE THE INCENTIVE SPIROMETER EVERY 4 HOURS DIRECTED. GET RECHECKED FOR ANY WORSENING OF YOUR CONDITION OR QUESTIONS OR CONCERNS. - Billing Disposition and Condition Condition: STABLE Disposition: Home - Attestation Statements Document Initiated by Scribe: Yes Documenting Scribe: Josefina Rajan Provider For Whom Helga is Documenting (Include Credential): Dr. Ezra Singletary MD Scribe Attestation: Josefina Bernal scribed for Dr. Ezra Singletary MD on 11/19/17 at 1911. Scribe Documentation Reviewed: Yes Provider Attestation: The documentation as recorded by the Josefina moore accurately reflects the service I personally performed and the decisions made by me, Dr. Ezra Singletary MD
--- NOTE | 2017-11-19 16:48 | RAD ---
Indication: Left shoulder pain. 3 views of left shoulder demonstrates AC joint arthritis. There is no fracture or dislocation. No other bone or joint abnormality is identified. IMPRESSION: AC joint arthritis without evidence of fracture.
--- NOTE | 2017-11-19 16:49 | RAD ---
Indication: Left upper arm pain. 2 views of left humerus demonstrates no fracture. No other bone or joint abnormality is noted. IMPRESSION: No fracture of the left humerus is noted.
--- NOTE | 2017-11-19 16:56 | RAD ---
Indication: Back pain. CT of the thoracic spine was obtained in the axial plane. Sagittal and coronal reconstructed images were obtained. There is compression of T10 and T11 of 25% or more. There is 75% or greater compression fracture of T11. Less than 25% compression of T9 is noted. Findings are not significantly changed since October 11, 2017. No retropulsed fragment is noted. The remainder of the thoracic vertebra are otherwise unremarkable. Again noted is 50-75% compression of the L1 vertebra. No evidence of perivertebral hematoma is noted. IMPRESSION: Compression fracture of T9, T10, T11 and L1 which are unchanged from previous exam. No paravertebral soft tissue is noted.
--- NOTE | 2017-11-19 17:24 | RAD ---
Indication: Left chest pain after fall. CT of the chest performed without IV contrast. Coronal and sagittal reconstructed images were obtained. There is no pneumothorax noted. The trachea and major bronchi appear patent. The lung sanchez demonstrate no evidence of alveolar consolidation. Inferior thyroid lobes are grossly unremarkable. No mediastinal or hilar adenopathy is noted. The heart is of normal size without evidence of pericardial effusion. Coronary artery disease is noted. No fracture of left ribs is identified. There may be areas of sclerosis in the left anterior ribs of uncertain clinical significance. This may be due to old healed fracture. The patient is status post cholecystectomy. IMPRESSION: No evidence of pneumothorax or alveolar consolidation is noted
[2017-11-19 18:15] VITALS: BP 155/71
== END 2017-11-19 18:10 | disposition home or self-care (01) ==
LOC: UCEAST 14:54
DX: M25.512 Pain in left shoulder (principal); R07.81 Pleurodynia; W19.XXXA Unspecified fall, initial encounter; Y92.9 Unspecified place or not applicable; M48.54XA Collapsed vertebra, not elsewhere classified, thoracic region, initial encounter for fracture; M19.012 Primary osteoarthritis, left shoulder; M50.30 Other cervical disc degeneration, unspecified cervical region; F17.210 Nicotine dependence, cigarettes, uncomplicated; Z88.5 Allergy status to narcotic agent
CPT/HCPCS: 71250; 72128; 99212; G0463

== ENCOUNTER 2017-11-20 21:55 | Observation (INO) | payer MEDICARE, MEDICAID ==
[2017-11-20 22:20] LABS: ABS Basophils 0.1 10^3/ul (0-0.2); ABS Eosinophils 0.2 10^3/ul (0-0.6); ABS Lymphocytes 1.4 10^3/ul (1.0-4.8); ABS Monocytes 0.6 10^3/ul (0-0.8); ABS Neutrophils 5.6 10^3/ul (1.5-7.7); ABS Nucleated RBC 0 10^3/ul; Hematocrit 36 % (35-47); Hemoglobin 12.1 g/dl (12.0-16.0); Lymphocyte % 18.3 % (25-47); Mean Corpuscular HGB Conc 33 g/dl (31-36); Mean Corpuscular Hemoglobin 30 pg (27-31); Mean Corpuscular Volume 90 fL (80-97); Mean Platelet Volume 7.8 um3 (7.4-10.4); Nucleated Red Blood Cells % 0; Platelet Count 238 10^3/ul (150-450); Red Blood Count 4.04 10^6/ul (4.00-5.40); Red Cell Distribution Width 16 % (10.5-15); White Blood Count 7.9 10^3/ul (3.5-10.8)
--- NOTE | 2017-11-20 22:22 | ED ---
Syncope/Near Syncope - HPI Summary HPI Summary: Pt is a 77 year old female who took a slip and fall yesterday. She was seen at urgent care, and was diagnosed with broken ribs, and the fall was witnessed by her daughter. Her family described her having a 1 min seizure; pt has had them before, but is nothing constant or regular. 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 The pt was giving limited responses due to being slightly lethargic, and she does not recall seizure. Pt denies pain, headache, or pain with ribs. The pt did not respond to inquiry about who she lives with. Per daughter, pt has had no recent med changes, and does not have a hx of seizures. The pt came out of rehab a few weeks ago, has a hx of dizziness that is still present. Per daughter, pt has had no fevers, but has had previous headaches and recurring falls. Daughter also states pt had complaints of dizziness yesterday. - History Of Current Complaint Chief Complaint: EDSeizure Time Seen by Provider: 11/20/17 21:58 Hx Obtained From: Patient, EMS Hx From Patient Unobtainable Due To: Altered Mental Status Onset/Duration: Lasting Minutes - 1 minute Timing: Intermittent Episode Lasting - 1min today, irregular episodes in the past Context: Witnessed - by daughter - Allergies/Home Medications Allergies/Adverse Reactions: Allergies Allergy/AdvReac Type Severity Reaction Status Date / Time oxycodone [From OxyContin] Allergy Altered Verified 11/19/17 15:22 Mental Status PMH/Surg Hx/FS Hx/Imm Hx Previously Healthy: No Endocrine/Hematology History: Reports: Hx Diabetes - type 2 dm, Hx Thyroid Disease - hypothyroid Denies: Hx Systemic Lupus Erythematosus Cardiovascular History: Reports: Hx Angina, Hx Coronary Artery Disease, Hx Hypercholesterolemia, Hx Hypertension, Hx Myocardial Infarction, Hx Rheumatic Fever Denies: Hx Congestive Heart Failure, Hx Pacemaker/ICD Comment Only: Other Cardiovascular Problems/Disorders - heart murmer since 16 years old Respiratory History: Reports: Hx Chronic Obstructive Pulmonary Disease (COPD), Hx Seasonal Allergies Denies: Hx Asthma, Other Respiratory Problems/Disorders GI History: Reports: Hx Gastroesophageal Reflux Disease, Hx Hiatal Hernia, Other GI Disorders - hiatal hernia Denies: Hx Ulcer History: Reports: Hx Renal Disease - hx of cyst removal, Other Problems/ Disorders - cysts removed from kidney Denies: Hx Dialysis Musculoskeletal History: Reports: Hx Arthritis - BILATERAL KNEES, BACK, BILATERAL HANDS, Hx Back Problems Denies: Hx Rheumatoid Arthritis Sensory History: Denies: Hx Contacts or Glasses, Hx Hearing Aid Opthamlomology History: Denies: Hx Contacts or Glasses Neurological History: Reports: Hx Dementia, Hx Headaches, Hx Migraine, Other Neuro Impairments/Disorders - COMPRESSION FX T9,T10,T11 AND L1 Denies: Hx Seizures Psychiatric History: Reports: Hx Anxiety, Hx Depression Denies: Hx Panic Disorder, Hx Substance Abuse - Cancer History Cancer Type, Location and Year: MELANOMA Hx Chemotherapy: No Hx Radiation Therapy: No Hx Palliative Cancer Treatment: No - Surgical History Surgery Procedure, Year, and Place: CATARACTS; PARTIAL THYROIDECTOMY; PAVAN; HYSTERECTOMY; T&A; APPENDECTOMY; CYST REMOVED FROM KIDNEY; BACK SURGERY; MELANOMA REMOVED FROM LEFT ARM; NASAL SURGERY Hx Anesthesia Reactions: No - Immunization History Date of Tetanus Vaccine: Unk Date of Influenza Vaccine: 01/09/13 Infectious Disease History: Yes Infectious Disease History: Reports: Hx Shingles Denies: Hx Hepatitis, Hx Human Immunodeficiency Virus (HIV), History Other Infectious Disease, Traveled Outside the [place] in Last 30 Days - Family History Known Family History: Positive: Unknown, Cardiac Disease - CHF, Other - CANCER - Social History Alcohol Use: None Substance Use Type: Reports: None Smoking Status (MU): Heavy Every Day Tobacco Smoker Type: Cigarettes Amount Used/How Often: 1/2 PPD Length of Time of Smoking/Using Tobacco: 60 years Have You Smoked in the Last Year: Yes Review of Systems Negative: Fever Positive: Other - Tired, lethargic All Other Systems Reviewed And Are Negative: Yes Physical Exam - Summary Physical Exam Summary: Appearance: Well-appearing, Well-nourished, lying in bed comfortable Skin: Warm, dry, no obvious rash Eyes: sclera anicteric, no conjunctival pallor ENT: mucous membranes moist Neck: deferred Respiratory: No signs of respiratory distress Cardiovascular: Appears well perfused, pulses are nml Abdomen: deferred Musculoskeletal: Moving all 4 extremities without obvious discomfort Neurological: Awake and alert, mentation is normal, speech is fluent and appropriate Psychiatric: Somnolence, lethargy, no motor focal deficits. Triage Information Reviewed: Yes Vital Signs On Initial Exam: Initial Vitals Temp Pulse Resp BP Pulse Ox 97.7 F 80 18 185/83 88 11/20/17 22:02 11/20/17 22:02 11/20/17 22:02 11/20/17 22:02 11/20/17 22:02 Vital Signs Reviewed: Yes Diagnostics - Vital Signs Vital Signs Temp Pulse Resp BP Pulse Ox 11/20/17 22:02 97.7 F 80 18 185/83 88 - Laboratory Result Diagrams: 11/21/17 08:51 11/21/17 08:51 Lab Statement: Any lab studies that have been ordered have been reviewed, and results considered in the medical decision making process. - CT Brain CT Interpretation: No Acute Changes CT Interpretation Completed By: Radiologist - EKG 2244 Cardiac Rate: Tachycardia - 101 bpm EKG Rhythm: Sinus Tachycardia Re-Evaluation - Re-Evaluation 1 Re-Evaluation Time: 20:26 Change: Worse - 2025 seizure lasted about 1 minute. Course/Dx - Diagnoses Differential Diagnosis/HQI/PQRI: Positive: Seizure Provider Diagnoses: Multiple falls, New onset seizure Discharge - Sign-Out/Discharge Documenting (check all that apply): Patient Departure - Discharge Plan Condition: Guarded Disposition: ADMITTED TO [facility] - Billing Disposition and Condition Condition: GUARDED Disposition: Admitted to [facility] - Attestation Statements Document Initiated by Scribe: Yes Documenting Scribe: Елена Tai Provider For Whom Helga is Documenting (Include Credential): Monico Arciniega MD. Scribe Attestation: Елена Bernal scribed for Monico Arciniega MD. on 11/22/17 at 1838. Scribe Documentation Reviewed: Yes Provider Attestation: The documentation as recorded by the scribeЕлена accurately reflects the service I personally performed and the decisions made by me, Monico Arciniega MD.
[2017-11-20] MEDS ORDERED: LORazepam INJ* 2 MG/ML 1 ML VIAL ONE (22:26)
[2017-11-20 22:27] LABS: INR 0.88 (0.77-1.02)
[2017-11-20] MEDS ORDERED: Phenytoin IV(*) 1,000 MG in NS 0.9% 250 ML* 180 ML IV ONE (22:30)
[2017-11-20] MEDS ORDERED: LORazepam INJ* 2 MG/ML 1 ML VIAL IV PUSH ONE ×2 (22:30→22:38)
[2017-11-20 22:38] LABS: EGFR Non-African American 67.8 (>60)
--- NOTE | 2017-11-20 23:29 | RAD ---
EXAM: CT Head Without Intravenous Contrast EXAM DATE/TIME: 11/20/2017 10:54 PM CLINICAL HISTORY: 77 years old, female; Signs and symptoms; Alteration of consciousness and altered mental status/memory loss and other: New onset seizures; Other: Seizures/wittnessed; Additional info: New onset seizures, fall several days ago TECHNIQUE: Axial computed tomography images of the head/brain without intravenous contrast. All CT scans at this facility use at least one of these dose optimization techniques: automated exposure control; mA and/or kV adjustment per patient size (includes targeted exams where dose is matched to clinical indication); or iterative reconstruction. COMPARISON: BRAIN WO CT BRAIN WO 10/16/2017 7:28 AM FINDINGS: Brain: Decreased attenuation of the supratentorial white matter is likely secondary to chronic microvascular ischemia. No hemorrhage. Ventricles: Ventricular and subarachnoid spaces are age appropriate. Bones/joints: Unremarkable. No acute fracture. Soft tissues: Unremarkable. Vasculature: Intracranial vascular calcification. Sinuses: Unremarkable as visualized. No acute sinusitis. Mastoid air cells: Unremarkable as visualized. No mastoid effusion. Other findings: Mild patient motion. IMPRESSION: No acute intracranial abnormality.
[2017-11-21 00:18] LABS: Urine Appearance Clear; Urine Blood Negative (Negative); Urine Color Yellow; Urine Ketones Negative (Negative); Urine Protein Negative (Negative); Urine Specific Gravity 1.017 (1.010-1.030); Urine Urobilinogen Negative (Negative)
--- NOTE | 2017-11-21 06:28 | HP ---
H&P (Free Text) History and Physical: PCP: Geno Rizo Date/Time: 11/21/2017 0545 CC: seizure HPI: Mrs Nagy is a 77F HX COPD, DM2, melanoma, HTN, HLD, hypothyroid, dementia, CAD who is unable to give a history at this time. Baseline cognitive ability is uncertain. She is agitated and fidgeting in the ED bed. She reportedly presented with family reporting new onset seizure and was witnessed to have a grand mal event after admission to the ED. She was loaded with 1g phenytoin and currently appears post-ictal, but in no distress. PMedHx DM2 w/ peripheral neuropathy COPD melanoma HTN HLD hypothyroidism dementia CAD GERD PSurgHx unobtainable SocHx: unobtainable FamHx: unobtainable ROS: as above, otherwise reviewed and all were negative vitals: reviewed Constitutional: NAD, normally developed, well-nourished elderly white female HEENM: atraumatic; sclera/conjunctiva: anicteric/clear; hearing: unable to assess; oropharynx: clear, mucosa moist Neck: soft tissue: no nuchal rigidity; thyroid: normal Pulmonary: clear to auscultation bilaterally, fair to good aeration, no accessory muscle use CV: RR/RR, normal S1S2, no carotid bruit, no jugular venous distention, 2+ B DP/ PT, no edema Abdominal: soft, non-distended, non-tender, no rebound/guarding/rigidity, normoactive bowel sounds, no hepatosplenomegaly or masses, no costovertebral angle tenderness Musculoskeletal: general: grossly intact, non-tender Integumental: normal appearance and texture of exposed skin Neurological: grossly non-focal Psychiatric orientation: AA & disoriented affect: mildly agitated/fidgeting mood: acquiescent eye contact: poor content: incoherent insight: poor Testing: reviewed CT brain W, personally reviewed: no report available, no overt acute abnormality Impression: 77F HX COPD, DM2, melanoma, HTN, HLD, hypothyroid, dementia, CAD presenting with new onset seizures DIAGNOSIS & PLAN Primary new onset seizures : MRI brain WO in AM r/o metastatic melanoma : EEG in AM : neurology consult in AM : seizure precautions : supplemental oxygen : supportive care Secondary DM2 w/ peripheral neuropathy : correctional lispro ACHS weight based protocol : NPO until bedside swallow passed COPD : review meds once reconciled melanoma HTN : review meds once reconciled HLD : review meds once reconciled hypothyroidism : review meds once reconciled dementia : review meds once reconciled CAD : review meds once reconciled GERD : review meds once reconciled Admission Rational: inpatient for new onset seizures not expected to be adequately worked up within 48H to allow for discharge DVTp: SCDs & heparin SQ Code Status: full HCP: unable to confirm
--- NOTE | 2017-11-21 08:54 | PN ---
Subjective Date of Service: 11/21/17 Interval History: Ms. Nagy reports back and hip pain today. Her daughter notes that she has had chronic pain. She denies chest pain, SOB, nausea, or abdominal pain. On repeat exam this afternoon, she is more confused, sitting with her gown off and picking at her IV line. She continues to be oriented x 3. Objective Vital Signs: Temp Pulse Resp BP Pulse Ox 98.3 F 81 16 129/87 98 11/21/17 07:32 11/21/17 07:32 11/21/17 07:32 11/21/17 07:32 11/21/17 07:32 Oxygen Devices in Use Now: None Appearance: Elderly female sitting up in chair in NAD Eyes: No Scleral Icterus Ears/Nose/Mouth/Throat: Mucous Membranes Moist Respiratory: Symmetrical Chest Expansion and Respiratory Effort, Clear to Auscultation Cardiovascular: NL Sounds; No Murmurs; No JVD, No Edema Abdominal: NL Sounds; No Tenderness; No Distention Extremities: No Edema Skin: No Rash or Ulcers Neurological: Alert and Oriented x 3, NL Muscle Strength and Tone Nutrition: Taking PO's Result Diagrams: 11/21/17 08:51 11/21/17 08:51 Assess/Plan/Problems-Billing Assessment: Mr. Nagy is a 77 yo F with a PMH of DM, HTN, HLD who was admitted on 11/21/17 with new onset seizures. - Patient Problems (1) Seizure Comment: - Two seizures noted yesterday. Reviewed case with neurology, patient on high dose welbutrin which lowers the seizure threshold. Given that seizures may have been provoked by this med, plan to stop and start low dose depakote. - EEG with diffuse slowing. - MRI brain cancelled since seizures likely related to meds, will need outpatient follow up with neurology. (2) CAD (coronary artery disease) Comment: Continue ASA, Lisinopril. (3) COPD (chronic obstructive pulmonary disease) Comment: - No evidence of acute exacerbation. - Continue tiotropium, dual inhaler. Albuterol PRN. (4) Chronic pain Comment: - Increase oxycodone to 10mg po q4h, gabapentin, and venlafaxine. (5) Diabetes Comment: Diet controlled. (6) GERD (gastroesophageal reflux disease) Comment: Continue Omeprazole. (7) HTN (hypertension) Comment: - SBP 150-170s. - Continue amlodipine and lisinopril. (8) Hypothyroid Comment: - Continue levothyroxine. (9) DVT prophylaxis Comment: Heparin SubQ. (10) Full code status Comment: Status and Disposition: Inpatient. Anticipate discharge to home when medically stable.
[2017-11-21] MEDS ORDERED: Heparin VIAL(*) 5000 UNITS/ML VIAL (FIVE THOUSAND) SUBCUT SCH (09:00)
[2017-11-21] MEDS ORDERED: Aspirin TAB* 325 MG PO SCH (09:00)
[2017-11-21] MEDS ORDERED: Omeprazole CAP* 20 MG PO SCH (09:00)
[2017-11-21] MEDS ORDERED: Lisinopril TAB* 10 MG PO SCH (09:00)
[2017-11-21 09:02] LABS: ABS Basophils 0.1 10^3/ul (0-0.2); ABS Eosinophils 0.1 10^3/ul (0-0.6); ABS Lymphocytes 2.1 10^3/ul (1.0-4.8); ABS Monocytes 0.9 10^3/ul (0-0.8); ABS Neutrophils 7.5 10^3/ul (1.5-7.7); ABS Nucleated RBC 0 10^3/ul; Eosinophil % 0.6 % (0-6); Hematocrit 36 % (35-47); Hemoglobin 12.2 g/dl (12.0-16.0); Lymphocyte % 19.9 % (25-47); Mean Corpuscular HGB Conc 34 g/dl (31-36); Mean Corpuscular Hemoglobin 30 pg (27-31); Mean Corpuscular Volume 90 fL (80-97); Nucleated Red Blood Cells % 0; Platelet Count 228 10^3/ul (150-450); Red Blood Count 4.01 10^6/ul (4.00-5.40); Red Cell Distribution Width 15 % (10.5-15); White Blood Count 10.7 10^3/ul (3.5-10.8)
[2017-11-21 09:21] LABS: EGFR Non-African American 97.2 (>60)
[2017-11-21] MEDS: Insulin LISPRO* 1 UNITS UNIT SUBCUT SCH ×3 (11:43→21:44)
[2017-11-21] MEDS ORDERED: oxyCODONE TAB* 5 MG TAB PO PRN (12:13)
[2017-11-21] MEDS ORDERED: Albuterol 2.5 MG/3 ML NEB.SOL* (0.083%) INH PRN (12:13)
[2017-11-21] MEDS ORDERED: Acetaminophen TAB* 325 MG PO PRN (12:13)
[2017-11-21] MEDS: oxyCODONE TAB* 5 MG TAB PO PRN ×2 (17:15→21:48)
[2017-11-21] MEDS: Mometasone/Formoter 200/5 MDI INH SCH (20:04)
[2017-11-21] MEDS ORDERED: Gabapentin CAP(*) 100 MG PO SCH (21:00)
[2017-11-21] MEDS ORDERED: Atorvastatin* 20 MG TAB PO SCH (21:00)
[2017-11-21] MEDS ORDERED: Zolpidem TAB* 10 MG PO SCH (21:00)
[2017-11-21] MEDS: Gabapentin CAP(*) 100 MG PO SCH (21:48)
[2017-11-21] MEDS: Divalproex DR TAB(*) 250 MG PO SCH (21:48)
[2017-11-22] MEDS: oxyCODONE TAB* 5 MG TAB PO PRN ×2 (02:14→10:39)
--- NOTE | 2017-11-22 02:50 | EEG ---
ELECTROENCEPHALOGRAPHY: DATE OF STUDY: 11/21/17 - ROOM #405 DATE OF READ: 11/21/17 ORDERED BY: Dr. Hilario Saba. DURATION OF THE STUDY: 10:09 a.m. - 10:29 a.m. CLINICAL PROBLEM: Mrs. Shu Nagy is a 77-year-old female who has history of dementia, who had 2 seizure-like episode, one described as head and eyes deviation towards the left with right arm shaking lasting 30 to 60 seconds. This EEG was obtained to evaluate for epileptiform abnormalities or electrographic seizures. CLINICAL STATE: Awake and sleep. MEDICATIONS: 1. Oxycodone. 2. Effexor. 3. Sumatriptan. 4. Ranitidine. 5. Lisinopril. 6. Levothyroxine. 7. Gabapentin. 8. Advair. 9. Esomeprazole. 10. Vitamin D. 11. Bupropion. 12. Ventolin. 13. Acetaminophen. REPORT: The background consisted of mixed frequency slowing in the delta and theta range with appropriate organization, clearly defined anterior posterior voltage. There was a waking slow background rhythm of 8 Hz, which was symmetrical and showed normal reactivity. Anteriorly, there were intermittent, diffuse, high amplitude delta activity with a frequency of 2-3 Hz consistent with FIRDA. These lasted for approximately 1 to 2 seconds. Attenuation of the occipital rhythm accompanied drowsiness. The sleep background was disorganized with persistent theta frequency and brief rounds of sleep spindles and vertex waves. The sleep transient showed appropriate morphology and are bilaterally synchronous and symmetrical. Hyperventilation and photic stimulation were not performed. There were rare sharply contoured waves mostly seen in right frontotemporal region, maximal at F8 and T6, which have the morphology of sharp epileptiform discharges. Throughout the recording, there were no electrographic seizures. CLINICAL IMPRESSION: This is an abnormal wake and sleep EEG due to diffuse slowing, frontal intermittent rhythmic delta activity, and rare sharply contoured waves in the right frontotemporal region that are suspicious for epileptiform discharges. These findings are suggestive of a mild, nonspecific diffuse encephalopathy with a concern for increased epileptogenic potentials emanating from the right frontotemporal areas. There were no electrographic seizures. Clinical correlation is recommended. I have discussed these findings with Dr. Lorna Newton at 16:30 p.m. [id number]/[facility] #: [id number] [facility]
[2017-11-22] MEDS ORDERED: Levothyroxine TAB* 88 MCG TAB PO SCH (06:00)
--- NOTE | 2017-11-22 07:52 | PN ---
Subjective Date of Service: 11/22/17 Interval History: Ms. Nagy complains of shoulder pain that started yesterday. Her daughter reports that she has had pain since she fell at home on Saturday. She also then notes that she hasn't had trouble falling at home. Ms. Nagy is intermittently clear and coherent and then will become very confused and forgetful. Ms. Nagy was ambulated with the neurologist today and noted to have a very unsteady gait. Note is made of the fact that the patient has been seen by Dr. De La Vega on two separate other occasions with concern for falls and gait ataxia. Objective Active Medications: Acetaminophen (Tylenol Tab*) 650 mg PO Q6H PRN Albuterol (Ventolin 2.5 Mg/3 Ml Neb.Tuyet*) 2.5 mg INH Q6H PRN Cholecalciferol (Vitamin D Tab*) 1,000 units PO DAILY MELLISA Divalproex Sodium (Depakote Dr Tab(*)) 250 mg PO BID MELLISA Gabapentin (Neurontin Cap(*)) 100 mg PO BID MELLISA Insulin Human Lispro (Humalog*) 0 units SUBCUT ACHS MELLISA; Protocol Levothyroxine Sodium (Synthroid Tab*) 88 mcg PO 0600 MELLISA Lisinopril (Prinivil Tab*) 5 mg PO DAILY MELLISA Mometasone Furoate/Formoterol Fumar (Dulera 200/5 Mdi*) 2 puff INH BID MELLISA Oxycodone HCl (Roxycodone Tab*) 10 mg PO Q4H PRN Venlafaxine HCl (Effexor Xr Cap*) 150 mg PO DAILY [facility] Vital Signs: Temp Pulse Resp BP Pulse Ox 97.5 F 73 17 156/62 93 11/22/17 03:52 11/22/17 03:52 11/22/17 05:52 11/22/17 03:52 11/22/17 03:54 Oxygen Devices in Use Now: None Appearance: Female sitting up in chair in NAD Eyes: No Scleral Icterus Ears/Nose/Mouth/Throat: Mucous Membranes Moist Neck: NL Appearance and Movements; NL JVP Respiratory: Symmetrical Chest Expansion and Respiratory Effort, Clear to Auscultation Cardiovascular: NL Sounds; No Murmurs; No JVD, No Edema Abdominal: NL Sounds; No Tenderness; No Distention Extremities: No Edema Skin: No Rash or Ulcers Neurological: NL Muscle Strength and Tone, - - Alert and oriented x 2, forgetful at times Nutrition: Taking PO's Result Diagrams: 11/21/17 08:51 11/21/17 08:51 Assess/Plan/Problems-Billing Assessment: Mr. Nagy is a 77 yo F with a PMH of DM, HTN, HLD and chronic pain who was admitted on 11/21/17 with new onset seizures. - Patient Problems (1) Seizure Comment: - Two seizures noted yesterday. Reviewed case with neurology, patient on high dose welbutrin which lowers the seizure threshold. Plan to stop and start low dose depakote. - EEG with diffuse slowing and some possible epileptiform like discharges. - MRI brain cancelled since seizures likely related to meds, will need outpatient follow up with neurology. Also had a previous MRI brain one month ago without acute abnormality but does show moderate to severe small vessel disease. (2) Shoulder pain Comment: - No fracture, 2 rib fractures noted. - Daughter notes fall at home prior to arrival. (3) CAD (coronary artery disease) Comment: - Continue ASA, Lisinopril. (4) COPD (chronic obstructive pulmonary disease) Comment: - No evidence of acute exacerbation. - Continue tiotropium, dual inhaler. Albuterol PRN. (5) Chronic pain Comment: - Increase oxycodone to 10mg po q4h, gabapentin, and venlafaxine. (6) Diabetes Comment: - Diet controlled. (7) GERD (gastroesophageal reflux disease) Comment: - Continue Omeprazole. (8) HTN (hypertension) Comment: - SBP 150-170s. - Continue amlodipine and lisinopril. (9) Hypothyroid Comment: - Continue levothyroxine. (10) DVT prophylaxis Comment: Heparin SubQ. (11) Full code status Comment: Status and Disposition: Inpatient. Discharge to home.
[2017-11-22] MEDS: Mometasone/Formoter 200/5 MDI INH SCH (07:55)
[2017-11-22] MEDS: Insulin LISPRO* 1 UNITS UNIT SUBCUT SCH (08:49)
[2017-11-22] MEDS ORDERED: BuPROPion XL* 300 MG TAB.XL PO SCH (09:00)
[2017-11-22] MEDS ORDERED: Lisinopril TAB* 5 MG PO SCH (09:00)
[2017-11-22] MEDS ORDERED: Venlafaxine EXT RELEASE CAP* 75 MG PO SCH ×2 (09:00)
[2017-11-22] MEDS ORDERED: Cholecalciferol TAB* 1000 UNITS PO SCH (09:00)
--- NOTE | 2017-11-22 09:26 | RAD ---
INDICATION: Left shoulder pain COMPARISON: Left humerus a 2017 TECHNIQUE: Routine frontal and Y views were obtained. FINDINGS: There is moderate glenohumeral osteoarthritis. There is mild AC joint osteoarthritis. The soft tissues are intact. There are multiple rib fractures. There are mildly displaced acute anterolateral left second and third rib fractures. There are old left sixth and seventh rib fractures Incidental note is made of multiple. IMPRESSION: 1. OSTEOARTHRITIS LEFT SHOULDER 2. ACUTE LEFT SECOND AND THIRD RIB FRACTURES. FINDINGS CALLED TO FLOOR
[2017-11-22] MEDS: Gabapentin CAP(*) 100 MG PO SCH (10:37)
[2017-11-22] MEDS: Divalproex DR TAB(*) 250 MG PO SCH (10:38)
--- NOTE | 2017-11-22 11:52 | RAD ---
HISTORY: Fall, new onset seizure COMPARISONS: November 20, 2017 TECHNIQUE: Multiple contiguous axial CT scans were obtained of the head without intravenous contrast. FINDINGS: HEMORRHAGE/INFARCT: There is no hemorrhage or acute infarct. MASSES/SHIFT: There is no mass or shift. EXTRA-AXIAL SPACES: There are no extra-axial fluid collections. SULCI AND VENTRICLES: The sulci and ventricles are normal in size and position for the patient's stated age. CEREBRUM: There is hypoattenuation of the periventricular and subcortical white matter. BRAINSTEM: There are no focal parenchymal abnormalities. CEREBELLUM: There are no focal parenchymal abnormalities. VESSELS: The vessels are grossly normal. PARANASAL SINUSES: The paranasal sinuses are clear. ORBITS: The orbits are unremarkable. BONES AND SOFT TISSUE: No bone or soft tissue abnormalities are noted. OTHER: None IMPRESSION: NO ACUTE INTRACRANIAL PATHOLOGY. CHRONIC SMALL VESSEL ISCHEMIC CHANGES.
[2017-11-22 13:35] VITALS: BP 149/61
--- NOTE | 2017-11-22 20:53 | CONS ---
NEUROLOGY CONSULTATION NOTE: DATE OF CONSULT: 11/22/17 PRIMARY PROVIDER: Lorna Newton NP REASON FOR CONSULT: Seizure. CHIEF COMPLAINT: "I had a seizure." HISTORY OF PRESENT ILLNESS: Ms. Shu Nagy is a 77-year-old female who has history of COPD, on intermittent oxygen; reported history of dementia; diet- controlled diabetes; hypertension; dyslipidemia. The history was mostly obtained by the patient's daughter via telephone as the patient is unaware of the reason for her hospitalization. I spoke to Chris Martinez today and she informed me that the patient had a seizure yesterday at approximately 9 p.m. The seizure was described as generalized convulsion, foaming at the mouth, moaning, stiffening of the upper and lower extremities, and shaking for approximately 30-60 seconds. Her eyes rolled to the back of the head and her eyes were wide open. She did have urinary incontinence, but did not bite her tongue, although she did not have her dentures on. The patient resides with her son, who witnessed the seizure. Her son suffers from epilepsy and knows exactly how seizure appears. She was brought to the emergency room where the patient had a second convulsive episode that was witnessed by our sonar technician, Loly, and was described as eye deviation towards the left, head deviating towards the left, and generalized tonic-clonic activity that lasted approximately 30 seconds. The patient had postictal confusion following the incident for approximately 15 minutes. Today, the patient is in no acute distress and is requesting to go home. She had an incident this morning where she got up without assistance and fell injuring her left shoulder as well as her left frontal head region by the eyebrows. She had a repeat CT head after the fall that showed no evidence of intraparenchymal hemorrhage or acute intracranial abnormality. Seizure risk factor, the patient denied any history of epilepsy. She has no history of meningitis or encephalitis. Her son suffers from epilepsy since he was 11 months old. The patient did have a low back surgery in the past, but no intracranial procedures. She has had multiple falls and concussions in the past , last concussion was August 2017. Her major risk factor includes Wellbutrin use at 300 mg daily. The patient has been evaluated in our ED and by our neurologist multiple times throughout the year. She was evaluated by Dr. Jaleesa De La Vega in May and in September of 2017 for frequent falls. The patient's falls were thought to be related to polypharmacy, orthostasis, and mechanical given her poor mobility secondary to multilevel degenerative disk disease. When evaluating the patient today, she was extremely unsteady when ambulating. The patient was started on valproic acid 250 mg twice daily and was loaded with phenytoin yesterday 1 g IV x1. The patient is denying any headaches, visual disturbance, slurred speech, swallowing difficulty, focal weakness or paresthesias. She is complaining of left hip pain after the fall. PAST MEDICAL HISTORY: COPD, diet-controlled diabetes, hypertension, dyslipidemia, postsurgical hypothyroidism, GERD, anxiety, vertigo, coronary artery disease, and reported dementia. PAST SURGICAL HISTORY: Hysterectomy, appendectomy, cholecystectomy, partial thyroidectomy, and lumbar spine procedure. HOME MEDICATIONS: 1. Venlafaxine 150 mg daily. 2. Bupropion 300 mg daily. 3. Ranitidine 300 mg daily with meal. 4. Fluticasone/salmeterol 250/50 one puff inhaled twice daily. 5. Esomeprazole 40 mg daily. 6. Gabapentin 100 mg p.o. b.i.d. 7. Levothyroxine 88 mcg p.o. daily. 8. Sumatriptan 50 mg p.o. once daily. 9. Cholecalciferol 1000 units p.o. daily. 10. Lisinopril 5 mg p.o. daily. 11. Albuterol 2.5 mg inhaled every 6 hours p.r.n. 12. Acetaminophen 650 mg p.o. every 6 hours p.r.n. 13. Oxycodone 5 mg p.o. every 4 hours as needed. ALLERGIES: No known drug allergies. FAMILY HISTORY: Father had heart failure. Mother was diagnosed with cancer. SOCIAL HISTORY: The patient smokes 2 to 3 cigarettes per day. She uses oxygen occasionally, but mostly at night. She denied any alcohol intake. She lives alone, but her son stays with her. REVIEW OF SYSTEMS: A 14-point review of systems was obtained, but otherwise negative except for what was mentioned in the HPI. PHYSICAL EXAM: Vitals: Temperature of 98.3, pulse rate of 69, respiratory rate of 16, oxygen saturation of 89%, and blood pressure is 154/63. The patient is a well- nourished, well-developed, slightly confused elderly female, who appears older than stated age. Head: She has a bruise right on top of the left eyebrow region with slight bruising in the left shoulder region as well. Eyes: Conjunctivae/corneas are clear with no scleral icterus. Neck is supple and symmetrical with no carotid bruits. Lungs are clear to auscultation bilaterally with nonlabored breathing. Cardiovascular: Regular rhythm. Normal S1, S2. Extremities: Normal range of motion with no cyanosis. Skin: No skin lesions or laceration. Psych: Affect is broad and slightly irritable mood. She is difficult to establish rapport given her memory loss and poor historian. Neurological Examination: Mental Status: She is awake, alert to self and family, but not oriented to place or time. She thought it is 2019 and the month of November. She was able to express herself and she has fears about being hospitalized any further, but had trouble naming. She did comprehend 1-2 step command. Cranial Nerves: Normal confrontation bilaterally. Pupils are mid range and reactive to light. Sensation is intact on the forehead, cheeks, and jaw region bilaterally. She has no facial droop. She is able to hear throughout the history process. She has symmetrical palatal elevation. Normal strength against resistance. Tongue is symmetrical and midline without any atrophy or fasciculation. Motor Examination: She has no pronator drift. Her tone seems to be slightly increased bilaterally or she is just resisting. She is able to elevate both arms and legs to command symmetrically. Reflexes: Right/left, brachioradialis 2/2, biceps 2/2, triceps 2/2, patella 1/1, ankle 0/ ankle, plantar mute/flexor. Sensation distal to proximal sensory gradient to light touch and pinprick demarcated at the knees bilaterally. She has complete impaired proprioception at the great toes. Vibration is reduced at the great toes at 3 seconds on the right, 4 seconds on the left. She has normal finger-to -nose bilaterally. Her gait is wide based, unsteady, ataxic with slight retropulsion and swing towards the right. She needed 1-person assist. DIAGNOSTIC STUDIES/LAB DATA: WBC of 10.7, hemoglobin 12.2, hematocrit of 36, platelets 228. Sodium 138, potassium 3.4, chloride 106, carbon dioxide 27, creatinine of 0.60. She had a urinalysis that showed no evidence of pyuria. Vitamin B12 level was not checked. Imaging studies: Head CT completed on 11/22/17 showed no evidence of acute intracranial pathology. Chronic small vessel ischemic changes. She had an MRI that I personally reviewed, completed on 10/11/17. The MRI study was done without contrast and there were reports that there is no evidence for acute intracranial abnormality. She has findings consistent with moderate-to- severe chronic small vessel ischemic changes. She also had a cervical spine MRI done 10/12/17. That I personally reviewed. The study was limited, but there are mild multilevel degenerative changes most severe at C4-C5. She had no evidence of moderate or severe spinal canal narrowing. The patient also had an MRI of the thoracic spine completed May of 2017 that showed fluid signal in the superior endplate of T10 vertebral body, not seen on the . MRI of the thoracic spine could be due to subacute compression fracture. The patient had an EEG done on 11/21/17 that showed evidence of mild nonspecific encephalopathy with some questionable rare sharply contoured waves in the right frontotemporal region. ASSESSMENT AND RECOMMENDATION: Ms. Shu Nagy is a 77-year-old female, who has multiple medical problems including chronic obstructive pulmonary disease, on oxygen, who continues to smoke; depression, who was taking Wellbutrin 300 mg daily, who presented with 2 generalized witnessed convulsive seizures. I suspect the seizures are related to Wellbutrin use; however, given the two episodes, the patient was started on low-dose valproic acid 250 mg twice daily. She can eventually be weaned off as an outpatient since we suspect this is a provoked seizure related to Wellbutrin use. She did have nonspecific finding of sharply contoured waves in the right frontotemporal region on EEG, which do raise concern for increased epileptogenic potential. The patient has other risk factors to develop epilepsy, which include multiple head traumas and concussions in the past and a family history of epilepsy and given her son has epilepsy that is another risk factor for seizures. Another major issue today is that the patient also is presenting with multiple falls and significant gait instability. She presented with falls multiple times over the last year. 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 In addition, the patient has multilevel degenerative disk disease in the thoracic and lumbar spine, which can contribute to her gait, and as pointed out by Dr. De La Vega in previous hospitalization that the patient may be overmedicated.. Lastly, when reviewing her CT scan, you can appreciate that the patient has had multivessel small lacunar infarcts and she has significant amount of chronic small vessel ischemic change, which I am sure can be contributing to the falls and to the degree of her dementia. I suspect her dementia is most likely related to vascular dementia rather than Alzheimer's dementia. The patient was supposed to be taking aspirin at home, but she is not. Therefore, I recommend aspirin 81 mg daily. I recommend that we do continue Depakote for the short term to make sure she does not have any further seizures since she has had 2 generalized tonic-clonic seizures during the same presentation. If she does not have any seizures after 6 to 8 weeks, she can follow up with us as an outpatient and then we will wean off the Depakote. She should not be on Wellbutrin on discharge. She should talk to her psychiatrist to consider other intervention, but she is currently taking venlafaxine. I will continue that for now. When ambulating the patient today, I do not feel that she is safe to go back to her home. The patient may benefit from short-term rehab and will need some type of assist at home, either an aide or a caregiver that can be with her at all times. Otherwise, the patient will come back with more falls and now that she will be on aspirin therapy will be at risk of bleeding. I discussed this in detail with the patient's daughter, who verbalized understanding. I will sign this case off Dr. Jelly Sadler, who will be covering this weekend. TIME SPENT: I spent a total of 75 minutes and 50% of that was spent obtaining history, reviewing previous records, examining the patient, and discussing the treatment plan with the patient, her daughter, and . Lorna Newton. [id number]/[facility] #: [id number] [place]
--- NOTE | 2017-11-23 02:00 | DS ---
CC: MICHAEL Short * [facility] MEDICINE DISCHARGE SUMMARY: DATE OF ADMISSION: 11/21/17 DATE OF DISCHARGE: 11/22/17 PRIMARY CARE PHYSICIAN: MICHAEL Short ATTENDING PROVIDER: Pierce Taylor MD * (DICTATED BY MELANY PUENTES NP) PRIMARY DIAGNOSIS: Seizures, new onset. SECONDARY DIAGNOSES: 1. Gait ataxia. 2. History of transient ischemic attack. 3. Dementia. 4. Type 2 diabetes with peripheral neuropathy. 5. Chronic obstructive pulmonary disease. 6. Melanoma. 7. Hypertension. 8. Hyperlipidemia. 9. Hypothyroidism. 10. Coronary artery disease. 11. Gastroesophageal reflux disease. MEDICATIONS AT THE TIME OF DISCHARGE: 1. Venlafaxine XR 150 mg p.o. daily. 2. Sumatriptan p.r.n. 3. Ranitidine 300 mg p.o. daily. 4. Lisinopril 5 mg p.o. daily. 5. Levothyroxine 88 mcg p.o. daily. 6. Gabapentin 100 mg p.o. b.i.d. 7. Advair 250/50 one puff inhaled b.i.d. 8. Esomeprazole 40 mg p.o. daily. 9. Cholecalciferol 1000 units p.o. daily. 10. Albuterol inhaler nebulizer p.r.n. 11. Tylenol p.r.n. 12. Oxycodone 10 mg p.o. q.6 hours p.r.n. 13. Divalproex DR 250 mg p.o. b.i.d. (new medication). 14. Please hold Wellbutrin. HOSPITAL COURSE: Ms. Nagy is a 77-year-old female with a past medical history as outline above, who presented to the hospital on 11/21/17 with concern for new onset seizures. Please see the dictated H and P from Hilario Saba MD for complete details. In brief, the patient's family noted that she had had witnessed event where she was shaking, foaming at the mouth and unresponsive. Thereafter, she was not responsive and snoring consistent with a postictal state. She was brought to the emergency room and while in the ED, had a second episode that was witnessed by ED staff. The patient's labs were unremarkable. Her vital signs were stable. Her CT brain was normal. Mr. Nagy was admitted to the hospital, she was started on Depakote 250 mg p.o. b.i.d. after consultation was provided by the neurological team. Note was made of the fact that the patient takes Wellbutrin at home and that this would be a medication that would lower this seizure threshold. However, in talking with the patient's daughter, it is unclear how frequently she actually takes this medication. The patient has significant dementia and is unreliable historian in this regard. The patient has had no seizure activity since admission. The remainder of her workup will include an EEG, which showed slowing and "was an abnormal awake and sleep EEG due to diffuse slowing, frontal intermittent rhythmic delta activity and rare sharply contoured waves in the right frontotemporal region that are suspicious for epileptiform discharges. These findings are suggestive of a mild, nonspecific diffuse encephalopathy with a concern for increased epileptogenic potentials emanating from the right frontotemporal areas." On the morning of 11/22/17, the patient attempted to get out of the bed independently and had a fall. She hit the left side of her head. CT of the brain showed no bleed or other abnormality. The patient complained of right shoulder pain since admission. The patient's daughter noted that she had fallen at home and actually been evaluated in the [facility] on 11/19/17 with concern for shoulder fracture, which showed no fracture. That imaging was repeated and demonstrated 2 left-sided rib fractures which were present on the prior chest xray from 11/19/17 per discussion with the radiologist. Ms. Nagy was evaluated by Neurology and again note was made of her gait ataxia. The patient's daughter reports that she has not had issues with falling, but then did note that she fell immediately prior to admission. The patient has 2 previous consultations with Neurology here at our hospital for falls and gait ataxia. I suspected that this is all related to her advanced dementia, advanced small-vessel disease, multiple TIAs and concussions in the past. The patient is a high risk for falls. This has been discussed with her daughter at length and she states that the patient has 24-hour care at home and that she will be monitored continuously. We offered consideration for [facility] placement or subacute rehab placement and the family adamantly denies that and states that they will be able to continue to care for her at home. Ms. Nagy is medically stable for discharge to home. She will need to follow up with her home neurologist for evaluation of need for further treatment of seizures. DISPOSITION: Home. DIET: Regular. ACTIVITY: As tolerated. The patient will need 24-hour care. FOLLOWUP PLANS: 1. Please follow up with outpatient Neurology. Family is asked to call on Saturday for an appointment within the next month. 2. Please follow up with Dr. Rizo per routine in the next week. TIME SPENT: Approximately 60 minutes were spent on the discharge of this patient, more than half time was spent with her and her daughter at the bedside reviewing the events leading up and during this hospitalization, performing the physical examination, and reviewing my plan of care. MELANY PUENTES NP [id number]/[facility] #: [id number] [place]
== END 2017-11-22 16:25 | disposition home or self-care (01) ==
LOC: ED 21:55 → OBSVTOIN 11-21 05:45 → MED 11-21 05:45 → INTOOBSV 11-21 05:45 → MED 11-22 00:17
PROVIDERS: ADMIT Hospitalist; ATTEND Internal Medicine
DX: R56.9 Unspecified convulsions (principal); R26.0 Ataxic gait; Z86.73 Personal history of transient ischemic attack (TIA), and cerebral infarction without residual deficits; F03.90 Unspecified dementia, unspecified severity, without behavioral disturbance, psychotic disturbance, mood disturbance, and anxiety; E11.40 Type 2 diabetes mellitus with diabetic neuropathy, unspecified; J44.9 Chronic obstructive pulmonary disease, unspecified; I10 Essential (primary) hypertension; E78.5 Hyperlipidemia, unspecified; E03.9 Hypothyroidism, unspecified; 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native coronary artery with unspecified angina pectoris; K21.9 Gastro-esophageal reflux disease without esophagitis; Z79.899 Other long term (current) drug therapy; Z88.8 Allergy status to other drugs, medicaments and biological substances; Z85.820 Personal history of malignant melanoma of skin; F17.210 Nicotine dependence, cigarettes, uncomplicated; M25.519 Pain in unspecified shoulder; G89.29 Other chronic pain; R00.0 Tachycardia, unspecified
CPT/HCPCS: 36415; 70450; 71250; 72128; 80048; 80053; 81003; 82607; 83605; 83735; 85025; 85610; 93005; 95819; 96374; 96375; 99212; 99283; 99284; A9270-GY; G0378; G0463; J1165; J2060

== ENCOUNTER 2018-05-15 20:30 | Emergency (ER) | payer MEDICARE, MEDICAID ==
--- OUTSIDE RECORDS SUMMARY | 2018-05-15 20:57 | XMS REPORT | Continuity of Care Document ---
:1940 External Reference #:[id number] Author Name Fabiola Vincent Care Team Providers Name Role Phone Martha Bennett M.D. Primary Care Physician Unavailable Payers Type Date Identification Numbers Payment Provider Subscriber Effective: 2017 Policy Number: [id number] Medicare Shu Yakov PayID: [id number] [address] [facility] [address] Effective: 2006 Policy Number: [id number] Medicare Shu Yakov Expires: 2018 PayID: [id number] [address] [place] [address] Policy Number: [id number] Medicaid August Yakov PayID: [id number] [address] [place] [address] Advance Directives Description No Information Available Problems Date Description Provider Status Onset: 03/08/2014 Chest pain Haylee Santiago M.D. Active Onset: 03/08/2014 Hyperlipidemia Haylee Santiago M.D. Active Onset: 03/08/2014 Essential hypertension Haylee Santiago M.D. Active Onset: 03/08/2014 Pulmonary emphysema Haylee Santiago M.D. Active Onset: 03/08/2014 Peripheral vascular disease Haylee Santiago M.D. Active Onset: 05/21/2014 Coronary arteriosclerosis Haylee Santiago M.D. Active Onset: 05/21/2014 Benign essential hypertension Haylee Santiago M.D. Active Onset: 05/21/2014 Myalgia & Myositis Unspecified Haylee Santiago M.D. Active Onset: 12/10/2014 Neuralgia Hieu Bahena MD Active Onset: 12/10/2014 Idiopathic peripheral neuropathy Hieu Bahena MD Active Onset: 12/10/2014 Dizziness and giddiness Hieu Bahena MD Active Onset: 02/07/2015 Pathological fracture of vertebra Andrae Valdovinos M.D. Active Onset: 02/07/2015 Lumbar sprain Andrae Valdovinos M.D. Active Onset: 02/07/2015 Age-related osteoporosis without Andrae Valdovinos M.D. Active current pathological fracture Onset: 05/09/2015 Atherosclerotic heart disease of Haylee Santiago M.D. Active [place] coronary artery with unspecified angina pectoris Onset: 05/09/2015 Mixed hyperlipidemia Haylee Santiago M.D. Active Onset: 05/23/2015 Late effect of fracture of spine Andrae Valdovinos M.D. Active AND/OR trunk without spinal cord lesion Onset: 06/15/2015 Inflammatory and toxic neuropathy Hieu Bahena MD Active Onset: 06/15/2015 Temporomandibular joint disorder Hieu Bahena MD Active Onset: 06/15/2015 Plain X-ray skull abnormal Hieu Bahena MD Active Onset: 01/25/2016 Abnormal gait Hieu Bahena MD Active Onset: 05/11/2016 Multi-infarct dementia, uncomplicated Hieu Bahena MD Active Onset: 05/02/2018 Mitral valve disorder Haylee Santiago M.D. Active Family History Date Family Member(s) Problem(s) Comments General Tuberculosis father General Cancer mother Social History Type Date Description Comments Sex Unknown Marital Status Lives With Alone Occupation Retired Tobacco Use Start: Unknown Light tobacco smoker (10 or fewer cigarettes/day) Smoking Status Reviewed: 05/02/18 Light tobacco smoker (10 or fewer cigarettes/day) ETOH Use Denies alcohol use Recreational Drug Use Denies Drug Use Tobacco Use Start: Unknown Patient is a current uses logic when she smoker, smokes some feels she needs a days cigarette Exercise Type/Frequency Does not exercise Allergies, Adverse Reactions, Alerts Date Description Reaction Status Severity Comments 05/02/2018 Gabapentin Dizziness Active 03/08/2014 NKDA Inactive Medications Medication Date Status Form Strength Qnty SIG Indications Ordering Provider Cozaar 05/02 Active Tablets 25mg 90tab 1 by mouth R05 Haylee /2019 s every day Andressa Santiago Effexor XR Active Caps ER 150mg 90cap 1 by mouth Unknown /0000 24HR s daily Synthroid Active Tablets 88mcg 30tab 1 by mouth Unknown /0000 s every day Nexium Active Capsules DR 40mg 30cap 1 by mouth Unknown /0000 s qd in Am Ventolin HFA Active Aerosol 108(90Bas 1unit 2 puffs by Unknown /0000 e) s mouth four mcg/Act times a day as needed Effexor XR Active Caps ER 75mg 1 by mouth Unknown /0000 24HR every day Oxygen Active Misc 3 l nc Unknown / continuous Fluticasone Active Suspension 50mcg/Act 2 sprays Unknown each nostril daily as needed Trazodone HCL Active Tablets 100mg take 1 Unknown /0000 tablet by mouth at bedtime Raloxifene HCL Active Tablets 60mg take 1 Unknown /0000 tablet by mouth once daily (pt no longer taking) Meloxicam Active Tablets 15mg take 1 Unknown /0000 tablet by mouth once daily Sumatriptan Active Tablets 100mg Take 1 Unknown Succinate /0000 Tablet By Mouth AT Onset Of Headache, July Repeat 1 Time AF... Ranitidine HCL Active Tablets 300mg 1 daily at Unknown /0000 night Vesicare Active Tablets 10mg 1 by mouth Unknown /0000 every day Lisinopril 07/23 Hx Tablets 5mg 30tab 1 by mouth R05 Brian /2017 s every day Jamie Nicole M.DIon 05/02 Robaxin 02/07 Hx Tablets 500mg 60tab 1-2 tab by S33.5xxA Andrae Lama /2014 s mouth four Aruna, - times a day M.DIon 05/30 as needed spasm Amitriptyline 12/31 Hx Tablets 10mg 120ta 4 tabs Hieu BROWN /2014 bs daily Jamie Bahena MD 04/01 Gabapentin 12/10 Hx Capsules 100mg 270ca 1po three 729.2 Hieu /Marco A ps times a day Jamie Bahena for 7 days 03/03 then 2 by /2014 mouth three times a day for 7 days then 3 by mouth three times a day Lisinopril 05/21 Hx Tablets 20mg 90tab 1 by mouth Haylee s every day Pamela, - M.D. 07/22 Pravastatin 03/08 Hx Tablets 20mg 90tab 2 tablet by 272.4 Haylee Sodium s mouth once Pamela, - daily at M.D. 12/30 Aspirin Ec Hx Tablets DR 81mg 100ta 1 by mouth Unknown /0000 bs every day - 12/30 Oxybutynin Hx Tablets ER 10mg 1 by mouth Unknown Chloride ER /0000 24HR every day - 03/05 Lisinopril Hx Tablets 5mg 2 by mouth Unknown /0000 every day - 05/21 Fenofibrate Hx Tablets 145mg 90tab 1 by mouth 272.4 Unknown /0000 s every day - 03/08 Oxycontin Hx Tab ER 12H 30mg 60tab 1 po tid Unknown /0000 Abuse-Det s prn - 12/09 Meclizine HCL Hx Tablets 25mg 60tab 2 by mouth Unknown /0000 s four times - a day as 08/28 Amitriptyline Hx Tablets 25mg 1 by mouth Unknown HCL /0000 every night - at bedtime 12/31 [place] Q Plus 100 Hx 2 softgel Unknown /0000 po daily - 11/03 Hydrocodone-Acet Hx Tablets 7.5-325mg Take 1 Unknown aminophen /0000 Tablet - Every 4 To 08/28 6 Hours Needed For Pain Oxycodone HCL Hx Tablets 30mg Take 1 Tab Unknown /0000 3 Times A - Day as 04/30 Fenofibrate Hx Tablets 160mg take 1 Unknown /0000 tablet once - daily 08/28 Celecoxib 00 Hx Capsules 100mg 1 po bid Unknown /0000 - 04/01 Amitriptyline Hx Tablets 25mg 1 by mouth Unknown HCL /0000 every night - at bedtime 05/02 Cyclobenzaprine Hx Tablets 10mg one by Unknown HCL /0000 mouth three - times a day 12/30 as needed spasm Meloxicam Hx Tablets 15mg once daily Unknown /0000 with food - 12/30 Oxybutynin 00 Hx Tablets ER 10mg 1 by mouth Unknown Chloride ER /0000 24HR every day - 12/30 Imitrex Hx Tablets 100mg take 1 by Unknown /0000 mouth every - 4-6 hour as 12/30 needed for migraine Carbamazepine Hx Tablets 200mg 1 tab by Unknown /0000 mouth daily - 12/30 Sucralfate Hx Tablets 1gm take 1 Unknown /0000 tablet four - times a day 05/02 (Before Meals And AT Night) Not currently Medications Administered in Office Medication Date Status Form Strength Qnty SIG Indications Ordering Provider Inj, 09/18/ Administered Injection Ernesto Peters Regadenoson, 0.1 2016 MG Thea AdenDIon, FACC, FASNC Aminophylline 09/18/ Administered Injection Ernesto Peters 2016 Andressa Aden, FACC, FASNC Technetium TC 09/18/ Administered Injection Ernesto Peters 99M Tetrofosmin, 2016 Markie Per Unit Dose Up M.D., To 40 FACC, Millicuries FASNC Inj, 05/16/ Administered Injection Soham S. Regadenoson, 0.1 2015 DO Kenny MG FACC Inj, 05/16/ Administered Injection Haylee Regadenoson, 0.1 2015 MG Andressa Santiago Aminophylline 05/16/ Administered Injection Soham S. 2016 DO Kenny FACC Aminophylline 05/16/ Administered Injection Haylee 2016 Andressa Santiago Technetium TC 05/16/ Administered Injection Soham S. 99M Tetrofosmin, 2015 DO Kenny Per Unit Dose Up FACC To 40 Millicuries Technetium TC 05/16/ Administered Injection Haylee 99M Tetrofosmin, 2015 Pamela Per Unit Dose Up M.D. To 40 Millicuries Inj, 06/27/ Administered Injection Ernesto Peters Regadenoson, 0.1 2012 MG Thea AdenDIon, FACC, FASNC Aminophylline 06/27/ Administered Injection Ernesto Peters 2012 Andressa Aden, FACC, FASNC Technetium TC 06/27/ Administered Injection Ernesto Fran 99M Tetrofosmin, 2012 Markie Per Unit Dose Up M.D., To 40 FACC, Millicuries FASNC Immunizations CPT Code Status Date Vaccine Lot # [id number] Given 01/09/2016 Fluzone Vaccine Vital Signs Date Vital Result Comment 05/02/2018 8:34am Height 62 inches 5'2" Weight 138.12 lb Heart Rate 82 /min BP Systolic Sitting 132 mmHg BP Diastolic Sitting 86 mmHg BMI (Body Mass Index) 25.3 kg/m2 Ejection Fraction 55-60 06/26/17 08/29/2017 9:07am Height 62 inches 5'2" Weight 131.00 lb Heart Rate 74 /min BP Systolic Sitting 134 mmHg BP Diastolic Sitting 62 mmHg BP Systolic Standing 128 mmHg BP Diastolic Standing 62 mmHg Respiratory Rate 18 /min BMI (Body Mass Index) 24.0 kg/m2 Ejection Fraction 55-60% 06/26/2017 echo 12/19/2016 2:43pm Height 62 inches 5'2" Weight 143.00 lb with shoes Heart Rate 68 /min BP Systolic Sitting 162 mmHg Rue reg cuff BP Diastolic Sitting 86 mmHg Rue reg cuff BP Systolic Standing 160 mmHg Rue reg cuff BP Diastolic Standing 84 mmHg Rue reg cuff Respiratory Rate 18 /min BMI (Body Mass Index) 26.2 kg/m2 Ejection Fraction 50-55% 09/24/2016-echo 09/14/2016 12:53pm Height 62 inches 5'2" Weight 150.00 lb with shoes Heart Rate 84 /min BP Systolic Sitting 140 mmHg Rue reg cuff BP Diastolic Sitting 80 mmHg Rue reg cuff BP Systolic Standing 146 mmHg Rue reg cuff BP Diastolic Standing 88 mmHg Rue reg cuff Respiratory Rate 20 /min BMI (Body Mass Index) 27.4 kg/m2 Ejection Fraction 50-55% 06/27/2012-echo 07/26/2016 2:03pm Height 64 inches 5'4" Weight 154.00 lb Heart Rate 76 /min BP Systolic Sitting 126 mmHg BP Diastolic Sitting 80 mmHg BP Systolic Lying Down 120 mmHg standing 120/80 BP Diastolic Lying Down 82 mmHg standing 120/80 BMI (Body Mass Index) 26.4 kg/m2 05/11/2016 11:54am Height 64 inches 5'4" Weight 159.25 lb Heart Rate 88 /min BP Systolic Sitting 140 mmHg BP Diastolic Sitting 70 mmHg Respiratory Rate 18 /min BMI (Body Mass Index) 27.3 kg/m2 01/25/2016 9:00am Height 64 inches 5'4" Weight 154.38 lb Heart Rate 76 /min BP Systolic Sitting 122 mmHg BP Diastolic Sitting 80 mmHg BMI (Body Mass Index) 26.5 kg/m2 06/15/2015 9:56am Height 64 inches 5'4" Weight 166.00 lb Heart Rate 80 /min BP Systolic Sitting 160 mmHg BP Diastolic Sitting 78 mmHg Respiratory Rate 17 /min BMI (Body Mass Index) 28.5 kg/m2 06/02/2015 2:44pm Height 64 inches 5'4" Weight 167.00 lb with shoes Heart Rate 80 /min BP Systolic Sitting 149 mmHg LA reg cuff BP Diastolic Sitting 84 mmHg LA reg cuff BP Systolic Standing 160 mmHg LA reg cuff BP Diastolic Standing 90 mmHg LA reg cuff Respiratory Rate 17 /min BMI (Body Mass Index) 28.7 kg/m2 Ejection Fraction 50-55% date 06/27/12 ECHO 05/23/2015 1:32pm Height 64 inches 5'4" Weight 169.00 lb Heart Rate 72 /min BP Systolic Sitting 150 mmHg BP Diastolic Sitting 80 mmHg Pain Level 10 BMI (Body Mass Index) 29.0 kg/m2 05/09/2015 10:16am Height 64 inches 5'4" Weight 169.00 lb with shoes Heart Rate 70 /min 74 BP Systolic Sitting 136 mmHg LA reg cuff BP Diastolic Sitting 90 mmHg LA reg cuff BP Systolic Standing 140 mmHg LA reg cuff BP Diastolic Standing 86 mmHg LA reg cuff Respiratory Rate 16 /min BMI (Body Mass Index) 29.0 kg/m2 Ejection Fraction 50-55% date 06/27/12 ECHO 03/04/2015 2:54pm Height 64 inches 5'4" Heart Rate 84 /min BP Systolic Sitting 142 mmHg BP Diastolic Sitting 86 mmHg Respiratory Rate 16 /min 02/07/2015 2:40pm Height 64 inches 5'4" Weight 175.00 lb Heart Rate 89 /min BP Systolic Sitting 154 mmHg BP Diastolic Sitting 92 mmHg Pain Level 10 lower back, r flank BMI (Body Mass Index) 30.0 kg/m2 12/10/2014 8:35am Height 64 inches 5'4" Weight 177.00 lb Heart Rate 72 /min BP Systolic Sitting 114 mmHg BP Diastolic Sitting 74 mmHg Respiratory Rate 16 /min BMI (Body Mass Index) 30.4 kg/m2 11/10/2014 3:26pm Height 64 inches 5'4" Weight 178.00 lb Heart Rate 80 /min BP Systolic Sitting 148 mmHg Ra reg cuff BP Diastolic Sitting 86 mmHg Ra reg cuff BP Systolic Standing 142 mmHg Ra BP Diastolic Standing 80 mmHg Ra Respiratory Rate 18 /min BMI (Body Mass Index) 30.6 kg/m2 Ejection Fraction 50-55% 06/27/12 05/21/2014 1:01pm Height 64 inches 5'4" Weight 181.00 lb with boots Heart Rate 92 /min BP Systolic Sitting 168 mmHg Ra reg cuff BP Diastolic Sitting 70 mmHg Ra reg cuff BP Systolic Standing 162 mmHg Ra reg cuff BP Diastolic Standing 82 mmHg Ra reg cuff Respiratory Rate 17 /min BMI (Body Mass Index) 31.1 kg/m2 03/08/2014 3:51pm Height 64 inches 5'4" Weight 174.00 lb with shoes Heart Rate 72 /min BP Systolic Sitting 154 mmHg Ra reg cuff BP Diastolic Sitting 90 mmHg Ra reg cuff BP Systolic Standing 160 mmHg Ra reg cuff BP Diastolic Standing 90 mmHg Ra reg cuff Respiratory Rate 17 /min BMI (Body Mass Index) 29.9 kg/m2 Results Test Date Facility Test Result H/L Range Note Laboratory test 12/15/2014 TSH (Thyroid 1.22 ?IU/mL N 0.34-5.60 finding Stim Horm) Vitamin B12 227 pg/mL N 180-914 1 Folic Acid (Folate) 6.14 ng/mL N >3.99 Laboratory test finding 04/14/2014 Ast 19 U/L N 13-39 Creatine Kinase 31 U/L N 10-223 LDL Cholesterol Direct 123 mg/dL N 2 Glucose 103 mg/dL High 70-100 Laboratory test 12/28/2013 [facility] Inr 0.97 N 0.85-1.[address] [place], [place] [id number] [phone] Laboratory test 12/28/2013 [facility] Activated 33.9 seconds N 24.0-36.[address] [place] [address] Thrombo Time [phone] Normal Range 180 to 914 Indeterminate Range 145 to 180 Deficient Range <145 2 Desirable <100 Near Optimal 100-129 Borderline high 130-159 High 160-189 Very High >189 Procedures Date Code Description Status 05/02/2018 32513 EKG Tracing & Interpretation Completed 03/06/2018 75802 Destruction ALL Benign Or Premalignant Lesion (Other Than Completed [place] 11/21/2017 04784 EEG Recording Awake & Asleep Completed 06/26/2017 30674 ECHO Transthorasic Realtime 2D W Doppler & Color Flow Hosp Completed 06/26/2017 17123 EKG, Interpretation Only Completed 12/19/2016 98541 EKG Tracing & Interpretation Completed 09/24/2016 59210 ECHO Transthoracic, Real-Time 2D With Doppler And Color Completed Flow 09/18/2016 57459 Stress Test Completed 09/18/2016 55329 Myocardial Perfusion Imaging Tomographic (Spect) Multiple Completed Studies 09/14/2016 08185 EKG Tracing & Interpretation Completed 05/20/2015 73396 Nerve Conduction 05-06 Studies Completed 05/20/2015 48489 Needle Electromyography Complete, Five Or More Muscles Completed Studied 05/18/2015 31033 Holter Monitoring 24 HR New Completed 05/16/2015 21175 Stress Test Completed 05/16/2015 70273 Myocardial Perfusion Imaging Tomographic (Spect) Multiple Completed Studies 05/16/2015 95832 Myocardial Perfusion Imaging Tomographic (Spect) Multiple Completed Studies 05/13/2015 14490 Holter Monitoring 24 HR New Completed 11/10/2014 53726 EKG Tracing & Interpretation Completed 11/10/2014 55863 EKG Tracing & Interpretation Completed 04/15/2014 21063 Artery Study Extremity Mult Levels Bilateral Completed 03/08/2014 52209 EKG Tracing & Interpretation Completed 12/29/2013 76397 Treadmill Interp/Report Only Completed 12/29/2013 67588 Stress Test Supervsn W/Out I/R Completed 12/29/2013 15472 EKG, Interpretation Only Completed 12/28/2013 76038 EKG, Interpretation Only Completed 08/21/2012 85398 Artery Study Extremity Mult Levels Bilateral Completed 08/15/2012 76602 Carotid Doppler,Bilateral Completed 06/27/2012 65191 ECHO Transthoracic, Real-Time 2D With Doppler And Color Completed Flow 06/27/2012 60041 ECHO Transthoracic, Real-Time 2D With Doppler And Color Completed Flow 06/27/2012 26087 Stress Test Completed 06/27/2012 71536 Myocardial Perfusion Imaging Tomographic (Spect) Multiple Completed Studies 06/26/2012 39372 Stress Test Completed 06/24/2012 55030 EKG Tracing & Interpretation Completed 04/22/2012 78804 EKG, Interpretation Only Completed 03/27/2010 65958 EKG, Interpretation Only Completed Encounters Type Date Location Provider Dx Diagnosis Office Visit 03/06/2018 [facility] Jasmin Andrew, L82.1 Other seborrheic 1:30p keratosis D69.2 Other nonthrombocytopenic purpura D18.01 Hemangioma of skin and subcutaneous tissue L91.8 Other hypertrophic disorders of the skin Z85.820 Personal history of malignant melanoma of skin L57.0 Actinic keratosis Office Visit 11/22/2017 [facility] Aishwarya Mancia, R56.9 Unspecified 7:00a Clinic MD convulsions R29.6 Repeated falls F03.90 Unspecified dementia without behavioral disturbance Z82.0 Family history of epilepsy and oth dis of the nervous sys Office Visit 11/22/2017 4:08p [facility] Lorna Newton R26.0 Ataxic gait Assoc, Hospitalists N.P. R29.6 Repeated falls G40.909 Epilepsy, unsp, not intractable, without status epilepticus Office Visit 11/21/2017 4:08p [facility] Hilario Saba R26.0 Ataxic gait Assoc,usama ROTHMAN M.D. Hospitalists R29.6 Repeated falls G40.909 Epilepsy, unsp, not intractable, without status epilepticus Office Visit 10/15/2017 [facility] Ezra S22.070A Wedge compression 2:15p Assoc,DALIA Oconnell fracture of Hospitalists T9-T10 vertebra, init S22.080A Wedge compression fracture of T11-T12 vertebra, init D51.9 Vitamin B12 deficiency anemia, unspecified R26.0 Ataxic gait Office Visit 10/14/2017 7:00a Neurohospitalist [facility] Jaleesa De La Vega R26.0 Ataxic gait R29.6 Repeated falls R41.82 Altered mental status, unspecified Office Visit 10/14/2017 [facility] Ezra S22.070A Wedge compression 2:14p Assoc,DALIA Oconnell fracture of Hospitalists T9-T10 vertebra, init S22.080A Wedge compression fracture of T11-T12 vertebra, init E11.9 Type 2 diabetes mellitus without complications E03.9 Hypothyroidism, unspecified G89.29 Other chronic pain I10 Essential (primary) hypertension Office Visit 10/13/2017 [facility] Ezra S22.070A Wedge compression 2:13p Assoc,DALIA Oconnell fracture of Hospitalists T9-T10 vertebra, init S22.080A Wedge compression fracture of T11-T12 vertebra, init E11.9 Type 2 diabetes mellitus without complications E03.9 Hypothyroidism, unspecified Office Visit 10/12/2017 [facility] Ezra S22.070A Wedge compression 2:13p Assoc,DALIA Oconnell fracture of Hospitalists T9-T10 vertebra, init S22.080A Wedge compression fracture of T11-T12 vertebra, init E11.9 Type 2 diabetes mellitus without complications G89.29 Other chronic pain E03.9 Hypothyroidism, unspecified I10 Essential (primary) hypertension Office Visit 10/12/2017 7:00a Neurosurgery Vassilios R29.6 Repeated falls Services Of Isabelle Pelayo MD M80.88xD Oth osteopor w crnt path fx, verteb, 7thD Office Visit 10/12/2017 7:00a [facility] Jaleesa De La Vega, R26.0 Ataxic gait R29.6 Repeated falls R41.82 Altered mental status, unspecified Office Visit 10/11/2017 2:12p [facility] Ezra R29.6 Repeated falls [place] PA Hospitalists R41.0 Disorientation, unspecified S22.070A Wedge compression fracture of T9-T10 vertebra, init S22.080A Wedge compression fracture of T11-T12 vertebra, init Office Visit 08/29/2017 9:30a [facility] Junie Villar I25.10 Athscl heart Of Isabelle Martins N.P. disease of [place] coronary artery w/o ang pctrs I73.9 Peripheral vascular disease, unspecified I35.0 Nonrheumatic aortic (valve) stenosis R06.02 Shortness of breath Office Visit 06/27/2017 12:06p [facility] Garland F03.90 Unspecified Assocusama M.D. dementia without Hospitalists behavioral disturbance I10 Essential (primary) hypertension J44.9 Chronic obstructive pulmonary disease, unspecified W19.xxxA Unspecified fall, initial encounter Office Visit 06/26/2017 7:00a [facility] Jaleesa De La Vega, R29.6 Repeated falls G89.29 Other chronic pain Z79.899 Other exterminator termite (current) drug therapy Office Visit 06/25/2017 [facility] F03.90 Unspecified 12:03p Assoc,usama Atwood N.P. dementia without Hospitalists behavioral disturbance I10 Essential (primary) hypertension J44.9 Chronic obstructive pulmonary disease, unspecified W19.xxxA Unspecified fall, initial encounter Office Visit 06/25/2017 7:00a Neurosurgery Vassilios R53.1 Weakness Services Of [facility]le Pelayo MD M79.604 Pain in right leg Office Visit 12/19/2016 2:45p [facility] Haylee Santiago, I25.10 Athscl heart Of Isabelle Crisostomo disease of [place] coronary artery w/o ang pctrs R10.13 Epigastric pain I73.9 Peripheral vascular disease, unspecified R06.02 Shortness of breath I35.0 Nonrheumatic aortic (valve) stenosis I34.0 Nonrheumatic mitral (valve) insufficiency I34.2 Nonrheumatic mitral (valve) stenosis I36.1 Nonrheumatic tricuspid (valve) insufficiency I10 Essential (primary) hypertension Office Visit 09/14/2016 1:00p [facility] Haylee Santiago, 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 I71.4 Abdominal aortic aneurysm, without rupture I73.9 Peripheral vascular disease, unspecified E78.2 Mixed hyperlipidemia Z72.0 Tobacco use I25.10 Athscl heart disease of [place] coronary artery w/o ang pctrs R42 Dizziness and giddiness R01.1 Cardiac murmur, unspecified Office 07/26/2016 Neurohospitalist Hieu R26.89 Other Visit 1:45p Clinic MD Shruti abnormalities of gait and mobility F01.50 Vascular dementia without behavioral disturbance R29.6 Repeated falls Office 05/11/2016 Neurohospitalist Hieu G62.9 Polyneuropathy, Visit 11:30a Clinic MD Shruti unspecified R90.82 White matter disease, unspecified R26.89 Other abnormalities of gait and mobility F01.50 Vascular dementia without behavioral disturbance Office 01/25/2016 Neurohospitalist Hieu G62.9 Polyneuropathy, Visit 9:00a Clinic MD Shruti unspecified R26.89 Other abnormalities of gait and mobility R29.6 Repeated falls Office Visit 06/15/2015 [place] Hieu Bahena, G62.9 Polyneuropathy, 10:00a Neurologic unspecified Services Of [facility] M26.60 Temporomandibular joint disorder, unspecified R90.82 White matter disease, unspecified R26.89 Other abnormalities of gait and mobility Office Visit 06/02/2015 2:45p [facility] Of Haylee Santiago M.D. R63.0 Anorexia [facility] I25.10 Athscl heart disease of [place] coronary artery w/o ang pctrs I10 Essential (primary) hypertension Office Visit 05/23/2015 Neurosurgery Andrae Lama M80.88xS Oth osteopor w 1:40p Services Of Isabelle Valdovinos M.D. 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 ligaments of lumbar spine, initial encounter M80.88xA Oth osteopor w current path fracture, vertebra(e), init Office Visit 12/10/2014 8:30a [place] [facility] Hieu Bahena, 729.2 Neuralgia Services Of [facility] Neuritis & Radiculitis Unspec 356.8 Neuropathy Other Spec Idiopathic Peripheral 780.4 Dizziness & Giddiness 356.9 Neuropathy Peripheral Hereditary Idiopathic Unspec Office Visit 11/10/2014 [place] Marilee Sanford, 414.01 Coronary 3:30p Cardiology Of [place] Atherosclerosis [facility] [place] 272.4 Hyperlipidemia Other Unspec 401.1 Hypertension Benign 305.1 Tobacco Use Disorder Office Visit 05/21/2014 [place], 414.01 Coronary 1:30p Cardiology Of Andressa Atherosclerosis [facility] [place] 272.4 Hyperlipidemia Other Unspec 401.1 Hypertension Benign 729.1 Myalgia & Myositis Unspec Office Visit 03/08/2014 3:45p [facility] Haylee Santiago, 786.50 Pain Chest Of Isabelle Crisostomo Unspec 272.4 Hyperlipidemia Other Unspec 401.9 Hypertension Unspec 492.8 Emphysema Other 443.9 Peripheral Vascular Disease Unspec Office Visit 12/29/2013 10:57a [facility] Chela Hohn, 786.50 Pain Chest Assoc,[place] Crisostomo Unspec Hospitalists 272.4 Hyperlipidemia Other Unspec 250.00 Diabetes Mellitus W/O Compl Type II Or Unspec Controlled 486 Pneumonia Organism Unspec Office Visit 12/29/2013 3:31p [facility] Jacky Andrew 786.50 Pain Chest Isabelle Aviles M.D. Unspec Office Visit 12/28/2013 10:57a [facility] Елена Oliva, 786.50 Pain Chest Assoc,pc DO Unspec Hospitalists 272.4 Hyperlipidemia Other Unspec 250.00 Diabetes Mellitus W/O Compl Type II Or Unspec Controlled 401.9 Hypertension Unspec Office Visit 01/13/2013 10:35a [facility] Lorna Newton, 577.0 Pancreatitis Acute Assoc,pc N.P. Hospitalists 250.00 Diabetes Mellitus W/O Compl Type II Or Unspec Controlled 492.8 Emphysema Other Office Visit 01/12/2013 10:35a [facility] Lorna Newton, 577.0 Pancreatitis Acute Assoc,pc N.P. Hospitalists 250.00 Diabetes Mellitus W/O Compl Type II Or Unspec Controlled 492.8 Emphysema Other Office Visit 01/11/2013 10:34a [facility] Lorna Newton, 577.0 Pancreatitis Acute Assoc,pc N.P. Hospitalists 250.00 Diabetes Mellitus W/O Compl Type II Or Unspec Controlled 492.8 Emphysema Other Office Visit 01/10/2013 [facility] Enrique Andrew 577.0 Pancreatitis 10:27a Assoc,pc Andressa Kellogg Acute Hospitalists Hospitalist 250.00 Diabetes Mellitus W/O Compl Type II Or Unspec Controlled 492.8 Emphysema Other Office Visit 06/24/2012 [facility] Haylee Santiago, 414.01 Coronary 9:45a [facility] Atherosclerosis Isabelle [place] 786.09 Dyspnea & Respiratory Abnormalities Other 785.1 Palpitations Office Visit 08/06/2008 [facility] Andrae Lama 733.01 Osteoporosis 11:40a [facility] Valdovinos M.D. Senile 733.13 FX Pathologic Vertebrae Plan of Treatment Future Appointment(s):06/03/2018 9:45 am - Haylee Santiago M.D. at [facility]05/12/2018 3:00 pm - Ica ECHO Schedule at [facility]05/02/2018 - Haylee Santiago M.D.J30.9 Allergic rhinitis, [id number] CoughNew Medication:Cozaar 25 mg - 1 by mouth every dayComments:Many potential reasons: post nasal drip, smoking, heart and lung issues and more.Continue to discusswith your primary MD.Recommendations:Lisinopril can cause coughing in some, we will try changing to cozaar and seeing if this helps. STOP LISINPRIL REPLACE with Cozaar.I25.10 Atherosclerotic heart disease of [place] coronary artery withFollow up:Please change primary provider to Ashleigh Bennett now.R07.89 Other chest painZ72.0 Tobacco useComments:I strongly recommend completely stopping cigarettes. Congrats on cutting down.I73.9 Peripheral vascular disease, unspecifiedComments:Not smoking will help prevent progression.LDL goal is 70, yours was 112 last year.Recommendations:Plan: update lipids, potentially start medication.I34.0 Nonrheumatic mitral (valve) insufficiencyNew Orders:Echocardiogram, Scheduled: 05/12/18Comments:This is impacting on breathing as well, this is from aging.Avoid salty foods.Follow up: We will go over your labs and echo at follow up visit. OV after echo and labs in 1 month approx.I34.2 Nonrheumatic mitral (valve) stenosis
--- NOTE | 2018-05-15 22:56 | ED ---
Back Pain - HPI Summary HPI Summary: 78-year-old female presents with onset of right lower thoracic back pain around 3:30 this afternoon while traveling in a car with her daughter from [place]. Describes pain as a constant "twisting" pain that worsens with movement and improves if she lies in a position of comfort. Occasionally radiates down to her right lower back. States she took 1 dose of her pain medication with little relief. Patient has long-standing history of multiple falls although denies any recent falls. She also has a history of significant chronic back pain as well as a stable abdominal aortic aneurysm. Denies weakness , dizziness, syncope, diaphoresis, chest pain, shortness of breath, abdominal pain, nausea, vomiting, dysuria, frequency, urgency, or hematuria. - History of Current Complaint Chief Complaint: EDFlankPain Stated Complaint: BACK PAIN Time Seen by Provider: 05/15/18 22:28 Hx Last Menstrual Period: post menopause Pain Intensity: 10 - Allergies/Home Medications Allergies/Adverse Reactions: Allergies Allergy/AdvReac Type Severity Reaction Status Date / Time oxycodone [From OxyContin] Allergy Altered Verified 11/19/17 15:22 Mental Status PMH/Surg Hx/FS Hx/Imm Hx Endocrine/Hematology History: Reports: Hx Diabetes - type 2 dm, Hx Thyroid Disease - hypothyroid Denies: Hx Systemic Lupus Erythematosus Cardiovascular History: Reports: Hx Aneurysm - AAA, Hx Angina, Hx Coronary Artery Disease, Hx Hypercholesterolemia, Hx Hypertension, Hx Myocardial Infarction, Hx Rheumatic Fever Denies: Hx Congestive Heart Failure, Hx Pacemaker/ICD Comment Only: Other Cardiovascular Problems/Disorders - heart murmer since 16 years old Respiratory History: Reports: Hx Chronic Obstructive Pulmonary Disease (COPD), Hx Seasonal Allergies Denies: Hx Asthma, Other Respiratory Problems/Disorders GI History: Reports: Hx Gastroesophageal Reflux Disease, Hx Hiatal Hernia Denies: Hx Ulcer History: Reports: Hx Renal Disease - hx of cyst removal Denies: Hx Dialysis Musculoskeletal History: Reports: Hx Arthritis - BILATERAL KNEES, BACK, BILATERAL HANDS, Hx Back Problems, Hx Osteoporosis, Hx of Fracture(s) - COMPRESSION FX T9,T10,T11 AND L1 Denies: Hx Rheumatoid Arthritis Sensory History: Denies: Hx Contacts or Glasses, Hx Hearing Aid Opthamlomology History: Denies: Hx Contacts or Glasses Neurological History: Reports: Hx Dementia, Hx Headaches, Hx Migraine, Hx Seizures Psychiatric History: Reports: Hx Anxiety, Hx Depression Denies: Hx Panic Disorder, Hx Substance Abuse - Cancer History Cancer Type, Location and Year: MELANOMA Hx Chemotherapy: No Hx Radiation Therapy: No Hx Palliative Cancer Treatment: No - Surgical History Surgery Procedure, Year, and Place: CATARACTS; PARTIAL THYROIDECTOMY; PAVAN; HYSTERECTOMY; T&A; APPENDECTOMY; CYST REMOVED FROM KIDNEY; BACK SURGERY; MELANOMA REMOVED FROM LEFT ARM; NASAL SURGERY Hx Anesthesia Reactions: No - Immunization History Date of Tetanus Vaccine: Unk Date of Influenza Vaccine: 01/09/13 Infectious Disease History: No Infectious Disease History: Reports: Hx Shingles Denies: Hx Hepatitis, Hx Human Immunodeficiency Virus (HIV), History Other Infectious Disease, Traveled Outside the [place] in Last 30 Days - Family History Known Family History: Positive: Cardiac Disease - CHF, Other - CANCER - Social History Occupation: Retired Lives: Alone Alcohol Use: None Substance Use Type: Reports: None Smoking Status (MU): Heavy Every Day Tobacco Smoker Type: Cigarettes Amount Used/How Often: 1/2 PPD Length of Time of Smoking/Using Tobacco: 60 years Have You Smoked in the Last Year: Yes Review of Systems Negative: Fever, Chills Negative: Palpitations, Chest Pain Negative: Shortness Of Breath, Cough Negative: Abdominal Pain, Vomiting, Nausea Negative: dysuria, frequency, hematuria, urgency Musculoskeletal: Other - See HPI Negative: Rash Negative: Headache, Weakness, Paresthesia, Numbness, Syncope All Other Systems Reviewed And Are Negative: Yes Physical Exam - Summary Physical Exam Summary: GENERAL APPEARANCE: Alert and cooperative older adult female who appears older than stated age lying in position of comfort on left side. NECK: Neck supple, non-tender. CARDIAC: Pansystolic murmur. Rhythm is regular. There is no peripheral edema, cyanosis or pallor. Extremities are warm and well perfused. Capillary refill is less than 2 seconds. Peripheral pulses intact. LUNGS: Clear to auscultation without rales, rhonchi, wheezing or diminished breath sounds. ABDOMEN: Positive bowel sounds. Soft, nondistended, nontender. No guarding or rebound. No masses or hepatosplenomegally. No CVA tenderness MUSKULOSKELETAL: ROM intact to all extremities. No joint erythema or tenderness. Normal muscular development. BACK: Examination of the spine reveals kyphosis, mild soft tissue tenderness to lower right thoracic back without muscle spasm, no spinal process tenderness or deformity noted. NEUROLOGICAL: Strength and sensation symmetric and intact throughout. Reflexes 2 + throughout. SKIN: Skin normal color, texture and turgor with no lesions or eruptions. Triage Information Reviewed: Yes Vital Signs On Initial Exam: Initial Vitals Temp Pulse Resp BP Pulse Ox 99.0 F 78 18 188/88 95 05/15/18 20:32 05/15/18 20:32 05/15/18 20:32 05/15/18 20:32 05/15/18 20:32 Vital Signs Reviewed: Yes Diagnostics - Vital Signs Vital Signs Temp Pulse Resp BP Pulse Ox 05/15/18 20:32 99.0 F 78 18 188/88 95 - Laboratory Result Diagrams: 05/15/18 22:57 05/15/18 22:57 Lab Statement: Any lab studies that have been ordered have been reviewed, and results considered in the medical decision making process. - Ultrasound No standard instances Ultrasound Interpretation Completed By: Radiologist Summary of Ultrasound Findings: EXAM: US Abdomen Limited, Right Upper Quadrant. EXAM DATE/TIME: 05/15/2018 11:15 PM. CLINICAL HISTORY: 78 years old , female; Pain; Abdominal pain; Localized; Right upper quadrant. (ruq); Prior surgery; Surgery date: 6+ months; Surgery type: Cholecystectomy;. Additional info: Back pain, HX aaa. TECHNIQUE: Real-time ultrasound of the abdomen with image documentation. Examination was. focused on the right upper quadrant. COMPARISON: RENAL COM US RENAL COMPLETE 12/22/2015 7:51 AM. FINDINGS: Liver: Normal. No masses. Gallbladder: Previous cholecystectomy. Common bile duct: Normal. No stones. No dilation. Pancreas: No focal abnormality involving the visualized pancreas. Right kidney: 2.1 cm cyst involving the mid to upper right kidney. Suspect. small nonobstructing right renal calculus. No right- sided hydronephrosis. Aorta: Distal abdominal aortic aneurysm measures up to 3.4 cm. IMPRESSION: 1. No acute abnormality. 2. 3.4 cm distal abdominal aortic aneurysm. To contact [facility] with a general question: Operations Center - [phone]. For direct physician to physician contact: Physician Hotline - [phone]. [facility] ([facility] Facility ID #[id number]). ======= End of Report Content . . Attending Doctor: Sly Griffin ([id number]). Computer Project Manager: Willian Garza ([id number]). Investigative Writer: Ion TEJADA ([email or web address]). Report Date: 05/15/2018 22:42:00. Report Status: Final. Begin of Report Content === . Patient Name: POLO MORRIS Medical Record#: [id number]. Ordering Physician: Dylan London NP Acct.#: [id number]. : 1940 Age: 78 Sex: F Location: EMERGENCY DEPARTMENT. Exam Date: 05/15/182241 ADM Status: REG ER. Order Information: US ABDOMEN LIMITED. Accession Number: [id number]. CPT: 49707. EXAM: US Abdomen Limited, Right Upper Quadrant. EXAM DATE/TIME: 05/15/2018 11:15 PM. CLINICAL HISTORY: 78 years old, female; Pain; Abdominal pain; Localized; Right upper quadrant (ruq); Prior surgery; Surgery date: 6+ months; Surgery type: Cholecystectomy; Additional info: Back pain, HX aaa. TECHNIQUE: Real-time ultrasound of the abdomen with image documentation. Examination was. focused on the right upper quadrant. COMPARISON: RENAL COM US RENAL COMPLETE 12/22/2015 7:51 AM. FINDINGS: Liver: Normal. No masses. Gallbladder: Previous cholecystectomy. Common bile duct: Normal. No stones. No dilation. Pancreas: No focal abnormality involving the visualized pancreas. Right kidney: 2.1 cm cyst involving the mid to upper right kidney. Suspect. small nonobstructing right renal calculus. No right- sided hydronephrosis. Aorta: Distal abdominal aortic aneurysm measures up to 3.4 cm. IMPRESSION: 1. No acute abnormality. 2. 3.4 cm distal abdominal aortic aneurysm. Re-Evaluation - Re-Evaluation First Eval Re-Evaluation Time: 00:22 Change: Improved Comment: Patient is presently resting quietly in bed. States her back pain has improved some. Reviewed lab work and chest x-ray results with patient. Awaiting report on ultrasound. Urine is also pending. Back Pain Course/Dx - Course Course Of Treatment: 78-year-old female presents with onset of right lower thoracic back pain around 3:30 this afternoon while traveling in a car with her daughter from [place]. Describes pain as a constant "twisting" pain that worsens with movement and improves if she lies in a position of comfort. Occasionally radiates down to her right lower back. States she took 1 dose of her pain medication with little relief. Patient has long-standing history of multiple falls although denies any recent falls. She also has a history of significant chronic back pain as well as a stable abdominal aortic aneurysm. Denies weakness, dizziness, syncope, diaphoresis, chest pain, shortness of breath, abdominal pain, nausea, vomiting, dysuria, frequency, urgency, or hematuria. Afebrile. Noted to be hypertensive at triage however blood pressure normalized over the course of her stay. Vitals otherwise stable. Exam revealed mild soft tissue tenderness over the lower right thoracic back was otherwise unremarkable. EKG showed a sinus rhythm at a rate of 66 with no ectopy, ST elevation, or T-wave changes. Chest x-ray is consistent for chronic changes of COPD but no acute pathology noted. Abdominal ultrasound showed stable 3.4 cm distal abdominal aortic aneurysm that was present on previous studies otherwise no acute changes. CBC and CMP essentially normal. Urinalysis showed 3+ leukocyte esterase, 3+ WBCs, and 2+ RBCs. Urine culture is pending. Results were reviewed with the patient. Her back pain did improve over the course of her evaluation without intervention. Based on patient's history and exam I suspect that her pain is musculoskeletal in origin and related to her chronic back issues although with the findings on her urinalysis I will treat her for possible UTI the course of nitrofurantoin 100 mg twice a day 5 days. She did receive her first dose in the emergency room. I am recommending that she continue with her pain regimen as already prescribed as well as conservative treatment for back pain including heat therapy. Patient is to follow-up with primary care provider within 5 days for recheck of her symptoms. Anticipatory guidance and warning symptoms were reviewed with the patient. She verbalizes understanding and agrees with plan of care. - Diagnoses Differential Diagnosis/HQI/PQRI: Positive: Aneurysm, Fracture, Herniated Disc, Renal Colic, Strain, Sprain, Other - PNA Provider Diagnoses: Acute back pain, UTI (urinary tract infection) Discharge - Sign-Out/Discharge Documenting (check all that apply): Patient Departure Patient Received Moderate/Deep Sedation with Procedure: No - Discharge Plan Condition: Stable Disposition: HOME Prescriptions: Nitrofurantoin Monohyd/M-Cryst [Macrobid 100 mg Capsule] 100 mg PO BID #10 cap Patient Education Materials: Urinary Tract Infection in Women (ED), Back Pain ( ED) Referrals: Martha Bennett MD [Primary Care Provider] - 3 Days (Follow up wihin 3-5 days for recheck of symptoms.) Additional Instructions: Your blood work, EKG, chest x-ray, and ultrasound were all normal. Your urine did show a possible urinary tract infection therefore we will start you on an antibiotic to treat for this. I suspect that your pain, though, is musculoskeletal and related to your chronic back issues. Take Macrobid 1 tab twice a day for 5 days for the urinary tract infection. Continue to use your pain medication as directed for the back pain. Try using a heating pad to the affected area for 15-20 minutes at least 4 times a day to help with the pain and relax the muscles. Follow up with your primary care provided within 3-5 days for recheck of symptoms. Return to the emergency room if you develop fever greater than 100.5 F, have chest pain, shortness of breath, dizziness, severe abdominal pain, persistent vomiting, numbness, tingling, or weakness in your legs, or any worsening of symptoms. - Billing Disposition and Condition Condition: STABLE Disposition: Home
[2018-05-15 23:06] LABS: ABS Basophils 0.1 10^3/ul (0-0.2); ABS Eosinophils 0.3 10^3/ul (0-0.6); ABS Lymphocytes 2.9 10^3/ul (1.0-4.8); ABS Monocytes 0.7 10^3/ul (0-0.8); ABS Neutrophils 3.4 10^3/ul (1.5-7.7); ABS Nucleated RBC 0 10^3/ul; Eosinophil % 3.5 %; Hematocrit 42 % (35-47); Hemoglobin 13.9 g/dl (12.0-16.0); Lymphocyte % 39.1 %; Mean Corpuscular HGB Conc 33 g/dl (31-36); Mean Corpuscular Hemoglobin 30 pg (27-31); Mean Corpuscular Volume 91 fL (80-97); Mean Platelet Volume 8.1 fL (7.4-10.4); Nucleated Red Blood Cells % 0.1; Platelet Count 275 10^3/ul (150-450); Red Blood Count 4.64 10^6/ul (4.00-5.40); Red Cell Distribution Width 14 % (10.5-15); White Blood Count 7.4 10^3/ul (3.5-10.8)
[2018-05-15 23:22] LABS: BUN/Creatinine Ratio 33.3 (8-20); Calcium 9.5 mg/dL (8.6-10.3); EGFR African American 99.8 (>60); EGFR Non-African American 82.5 (>60); Potassium 3.9 mmol/L (3.5-5.0)
[2018-05-16 00:49] LABS: Urine Appearance Cloudy; Urine Bacteria Absent (Absent); Urine Bilirubin Negative (Negative); Urine Blood Negative (Negative); Urine Color Yellow; Urine Glucose Negative (Negative); Urine Ketones Negative (Negative); Urine Nitrite Negative (Negative); Urine Protein Negative (Negative); Urine Red Blood Cell 2+(6-10/hpf) (Absent); Urine Specific Gravity 1.025 (1.010-1.030); Urine Squamous Epithelial Cell Present (Absent); Urine Urobilinogen Negative (Negative); Urine White Blood Cell 3+(>20/hpf) (Absent)
[2018-05-16] MEDS ORDERED: Nitrofurantoin Macrocrystals* 100 MG CAP PO ONE (01:19)
[2018-05-16 02:00] VITALS: BP 132/63
== END 2018-05-16 01:45 | disposition home or self-care (01) ==
LOC: ED 20:30
DX: M54.6 Pain in thoracic spine (principal); N39.0 Urinary tract infection, site not specified; I71.4 Abdominal aortic aneurysm, without rupture; Z88.5 Allergy status to narcotic agent; F17.210 Nicotine dependence, cigarettes, uncomplicated
CPT/HCPCS: 36415; 71046; 76705; 80048; 81003; 81015; 85025; 87086; 93005; 99282; A9270-GY

== ENCOUNTER 2018-06-18 20:58 | Emergency (ER) | payer MEDICARE, MEDICAID ==
--- OUTSIDE RECORDS SUMMARY | 2018-06-18 21:20 | XMS REPORT | Continuity of Care Document ---
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 Yuri Bennett MD, PHD Primary Care Physician Unavailable Payers Date Identification Numbers Payment Provider Subscriber Policy Number: [id number] Medicare [facility] PayID: [id number] [address] [place] [address] Policy Number: [id number] Medicaid [facility] PayID: [id number] [address] [place] [address] Expires: 2017 Policy Number: [id number] Medicare June Reed PayID: [id number] [address] [place] [address] Advance Directives Description No Information Available Problems Date Description Provider Status Onset: 01/07/2018 Hyperlipidemia Yuri Bennett MD, PHD Active Onset: 01/07/2018 Low back pain Yuri Bennett MD, PHD Active Onset: 01/07/2018 Pain in thoracic spine Yuri Bennett MD, PHD Active Onset: 01/07/2018 Type 2 diabetes mellitus Yuri Bennett MD, PHD Active Onset: 01/07/2018 Tobacco use Yuri Bennett MD, PHD Active Onset: 01/07/2018 Essential hypertension Yuri Bennett MD, PHD Active Onset: 01/07/2018 Gastroesophageal reflux disease Yuri Bennett MD, PHD Active Onset: 01/07/2018 Chronic obstructive lung disease Yuri Bennett MD, PHD Active Onset: 01/07/2018 Esophageal dysphagia Yuri Bennett MD, PHD Active Onset: 02/28/2018 Hypothyroidism Yuri Bennett MD, PHD Active Onset: 03/19/2018 Compression fracture of thoracic Yuri Bennett MD, PHD Active spine Note: T9, 10, and 11 Onset: 03/19/2018 Acquired scoliosis Yuri Bennett MD, PHD Active Onset: 03/19/2018 Heart murmur Yuri Bennett MD, PHD Active Note: Blowing holosystolic - calcifications of aortic valve seen on CT, cardiomegaly Onset: 03/19/2018 Cardiomegaly Yuri Bennett MD, PHD Active Onset: 03/19/2018 Dizziness and giddiness Yuri Bennett MD, PHD Active Onset: 03/19/2018 Falls Yuri Bennett MD, PHD Active Onset: 06/04/2018 Other problems related to housing Yuri Bennett MD, PHD Active and economic circumstances Family History Date Family Member(s) Observation Comments Mother due to Cancer () Maternal Grandmother due to Heart Attack () Social History Type Date Description Comments Sex Unknown Lives With Son Diet Patient follows no dietary restrictions ADL's/IADL's Independent with all ADL's ETOH Use Denies alcohol use Tobacco Use Start: Unknown Patient is a current smoker, smokes every day Smoking Status Reviewed: 06/03/18 Patient is a current smoker, smokes every day Allergies, Adverse Reactions, Alerts Date Description Reaction Status Severity Comments 01/07/2018 Oxycontin Active Medications Medication Date Status Form Strength Qnty SIG Indications Ordering Provider Nicotrol NS Active Solution 10mg/ml 40ml 1 every 4 Z72.0 Deb Bennett hours as Yuri, needed , PHD Lyrica Active Capsules 75mg 45caps 1 tab by Zac6 Deb Bennett mouth Yuri, twice a , PHD day after meals Valium Active Tablets 5mg 90tabs 1 tab by Elise.[email or web address] Deb Bennett mouth Yuri, three MD, PHD times a day as needed Oxycodone HCL Active Tablets 20mg 60tabs tab by Deb Bennett mouth Yuri, twice a MD, PHD day as needed Ranitidine Active Tablets 150mg 60tabs 1 tab by Sabrina, 150 Maximum 019 mouth at Yuri, Strength bedtime , PHD Wheelchair Active Misc M54.5 Sabrina, 018 MD Yuri, PHD M54.6 Advair HFA 03/17/2018 Active Aerosol 115-21mcg/Act 12gm 1 puffs J44.9 Sabrina inhaled Yuri, twice a day , PHD Omeprazole 03/14/2018 Active Capsules 20mg 30cap [address] Sabrina s mouth every Yuri, day before MD, PHD meals Tylenol 03/14/2018 Active Capsules 325mg 180ca 1-2 tab by Sabrina ps mouth every Yuri, 8 hours as , PHD needed for pain Saline Nasal 03/03/2018 Active Solution 0.65% 44ml 2 sprays J06.9 Sabrina, [place] intranasal Yuri, every 2 MD, PHD hours congestion or nasal dryness R05 Trazodone HCL 02/28/2018 Active Tablets 100mg 30tabs 1 tab by Sabrina, mouth at Yuri, bedtime as , PHD needed for sleep Levothyroxine 01/29/2018 Active Tablets 88mcg 30tabs 1 tab by Sabrina, Sodium mouth Yuri, every day MD, PHD before meals Celebrex 01/09/2018 Active Capsules 100mg 60caps 1 tab by Sabrina, mouth Yuri, twice a MD, PHD day as needed for pain and swelling Arnicare 01/07/2018 Active Gel 75g apply to M5 Call, affected 4. Yuri, area four 5 MD, PHD times a day pain, swelling, bruising Esomeprazole 01/07/[address] 20mg 30caps tab by K2 Sabrina , Magnesium mouth 1. Yuri, every day 9 MD, PHD before meals Vesicare Active Tablets 10mg 30tabs once a day Sabrina, as needed Yuri, for , PHD bladder spams Vitamin D-1000 Active Tablets 1000Unit 120tabs 2 by mouth Sabrina, Maximum Strength twice a Yuri, day after MD, PHD meals Venlafaxine HCL Active Tablets ER 150mg 90tabs 1 by mouth Sabrina, ER 24HR every day MD Yuri, PHD Calcium 500+D Active Tablets 500-400m 1 tab by Unknown g-Unit mouth twice a day after meals Cozaar Active Tablets 25mg 90tabs 1 by mouth I1 Sabrina, every day 0 MD Yuri, PHD Benzonatate 2018 - Hx Capsules 100mg 30caps 1 tab by J0 Sabrina, 06/04/2018 mouth 6. Yuri, three 9 , PHD times a day as needed Mucinex DM 2018 - Hx Tablets ER 30-600mg 14tabs by mouth J0 Sabrina, 06/04/2018 12HR twice a 6. Yuri, day as 9 , PHD needed R05 Hydrocodone-Acetaminophen 04/24/2018 Hx Tablets 5-325mg 30tabs 1 tab by M54.6 Sabrina, - mouth as Yuri, 06/04/2018 needed for , PHD intractable pain Gabapentin 04/04/2018 Hx Capsules 300mg 120caps 1 cap by [email or web address] Sabrina, - mouth with Yuri, 05/08/2018 breakfast , PHD and lunch, 2-3 at bedtime. M54.5 Eq Nicotine 03/17/2018 - Hx Patches 14mg/24HR 14units apply one to Z72.0 Sabrina, 06/04/2018 24HR skin in in Yuri, the morning, , PHD remove at bedtime daily Traci 03/17/2018 - Hx Tablets 180mg 90tabs 1 tab by Santiago2 Sabrina, Allergy 06/04/2018 mouth every Yuri, day as , PHD needed Zantac 150 03/17/2018 - Hx Tablets 150mg 60tabs 1 tab by Santiago2 Sabrina, Maximum 06/04/2018 mouth twice Yuri, Strength a day as , PHD needed Zofran 03/15/2018 - Hx Tablets 4mg 30tabs 1 tab by Tye, 06/04/2018 mouth every MD Jessica 4 hrs as needed for nausea Zofran Odt 03/14/2018 - Hx Tablets 4mg 30tabs 1 tab Sabrina, 03/15/2018 Dispers sublingual Yuri, as needed , PHD for nausea Guaifenex LA 03/05/2018 - Hx Tablets ER 600mg 30tabs 1 tab by Sabrina, 2018 12HR mouth twice Yuri, a day as , PHD needed for cough Tessalon 03/03/2018 - Hx Capsules 100mg 14caps 1 tab by Matheus Bennett 03/05/2018 mouth at [facility], bedtime , PHD Baclofen 01/21/2018 - Hx Tablets 5mg 30tabs 1 tab by Sabrina, 06/04/2018 mouth at [facility], bedtime as , PHD needed Robaxin 01/20/2018 - Hx Tablets 500mg 14tabs 1 tab by Sabrina, 01/21/2018 mouth at [facility], bedtime as , PHD needed for muscle spasm Oxycodone HCL 01/17/2018 - Hx Tablets 15mg 60tabs 1 tab by Sabrina, 05/08/2018 mouth twice Yuri, a day as , PHD needed Gabapentin 01/15/2018 - Hx Tablets 600mg 60tabs 1-2 tab by [email or web address] Sabrina , 04/04/2018 mouth every Yuri, day at MD, PHD bedtime M54.5 Advil 01/10/2018 - Hx Capsules 200mg 120caps 3 tab by Sabrina, 03/12/2018 mouth twice MD Yuri, a day as PHD needed Naltrexone HCL 01/10/2018 - Hx Tablets 50mg 60tabs 1 tab by Zac Bennett , 01/17/2018 mouth every 5 MD Yuri, day every PHD morning Salsalate 01/09/2018 - Hx Tablets 500mg 30tabs 1 tab by Sabrina, 01/15/2018 mouth every MD Yuri, day as PHD needed D3 Maximum 01/07/2018 - Hx Capsules 5000Unit 90caps 1 cap by Zac Bennett, Strength 02/28/2018 mouth every 5 MD Yuri, day PHD Gabapentin 01/07/2018 - Hx Capsules 300mg 60caps 1-2 tab by Zac Bennett , 01/15/2018 mouth at 6 MD Yuri, bedtime PHD M54.5 Norvasc 01/07/2018 - Hx Tablets 5mg 30tabs 1 tab by I1Jeanna Bennett, 01/07/2018 mouth Yuri, every day , PHD Accupril 01/07/2018 - Hx Tablets 10mg 90tabs 1 tab by I10 Sabrina, 05/09/2018 mouth Yuri, every day , PHD Naltrexone HCL 01/07/2018 - Hx Tablets 50mg 14tabs 1/2 tab by M54.5 Sabrina, 01/10/2018 mouth Yuri, every day , PHD every morning Trazodone HCL - Hx Tablets 150mg 30tabs 1 tab by Sabrina, 02/28/2018 mouth Yuri, every , PHD night at bedtime Ranitidine 150 - Hx Tablets 300mg 1 tab by Unknown Maximum Strength 04/04/2018 mouth at bedtime Esomeprazole - Hx Capsules DR 40mg 1 tab Unknown Magnesium 01/07/2018 every day every morning Gabapentin - Hx Capsules 100mg 30caps 1 cap by M54.6 Unknown 01/07/2018 mouth twice a day M54.5 Lisinopril - 01/07/2018 Hx Tablets 5mg 1 by mouth every day I10 Unknown Lisinopril - 02/28/2018 Hx Tablets 5mg 1 by mouth every day Unknown Immunizations Description No Information Available Vital Signs Date Vital Result Comment 06/04/2018 3:55pm BP Systolic 170 mmHg BP Diastolic 78 mmHg Body Temperature 98.3 F Heart Rate 74 /min Respiratory Rate 18 /min Height 63 inches 5'3" Weight 142.00 lb BMI (Body Mass Index) 25.2 kg/m2 BSA (Body Surface Area) 1.67 m2 [place] body weight in kilograms 52 kg O2 % BldC Oximetry 96 % 03/17/2018 2:35pm BP Systolic 175 mmHg BP Diastolic 81 mmHg Body Temperature 98.0 F Heart Rate 74 /min Respiratory Rate 20 /min Height 63 inches 5'3" Weight 141.00 lb BMI (Body Mass Index) 25.0 kg/m2 BSA (Body Surface Area) 1.67 m2 [place] body weight in kilograms 52 kg O2 % BldC Oximetry 92 % 02/28/2018 1:47pm BP Systolic 170 mmHg BP Diastolic 82 mmHg Body Temperature 98.3 F Heart Rate 86 /min Respiratory Rate 22 /min Height 63 inches 5'3" Weight 141.00 lb BMI (Body Mass Index) 25.0 kg/m2 BSA (Body Surface Area) 1.67 m2 [place] body weight in kilograms 52 kg O2 % BldC Oximetry 92 % 01/07/2018 2:30pm BP Systolic 170 mmHg BP Diastolic 75 mmHg Body Temperature 98.2 F Heart Rate 81 /min Respiratory Rate 20 /min Height 63 inches 5'3" Weight 134.00 lb BMI (Body Mass Index) 23.7 kg/m2 BSA (Body Surface Area) 1.63 m2 [place] body weight in kilograms 52 kg O2 % BldC Oximetry 96 % Results Test Date Facility Test Result H/L Range Note Comp Metabolic 05/28/2018 [facility] Sodium 139 mmol/ L N 135-145 Panel [phone] Potassium 4.0 mmol/L N 3.5-5.0 Chloride 105 mmol/L N 101-111 Co2 Carbon Dioxide 28 mmol/L N 22-32 Anion Gap 6 mmol/L N 2-11 Glucose 125 mg/dL High 70-100 Blood Urea Nitrogen 16 mg/dL N 6-24 Creatinine 0.81 mg/dL N 0.51-0.95 BUN/Creatinine Ratio 19.8 N 8-20 Calcium 9.5 mg/dL N 8.6-10.3 Total Protein 6.7 g/dL N 6.4-8.9 Albumin 3.7 g/dL N 3.2-5.2 Globulin 3.0 g/dL N 2-4 Albumin/Globulin Ratio 1.2 N 1-3 Total Bilirubin 0.30 mg/dL N 0.2-1.0 Alkaline Phosphatase 123 U/L High 34-104 Alt 8 U/L N 7-52 Ast 10 U/L Low 13-39 Egfr Non- 68.6 >60 Egfr 83.0 >60 1 Lipid Profile 05/28/2018 [facility] Triglycerides 158 mg/dL 2 (Trig/Chol/HDL) [phone] Cholesterol 222 mg/dL 3 HDL Cholesterol 56.6 mg/dL 4 LDL Cholesterol 134 mg/dL 5 Laboratory test 05/28/2018 [facility] Creatine 22 U/ L N 10-223 6 finding [phone] Kinase(CK) CBC Auto Diff 05/15/2018 [facility] White Blood 7.4 N 3.5-10.8 [phone] Count 10^3/uL Red Blood Count 4.64 10^6/uL N 4.00-5.40 Hemoglobin 13.9 g/dL N 12.0-16.0 Hematocrit 42 % N 35-47 Mean Corpuscular Volume 91 fL N 80-97 Mean Corpuscular Hemoglobin 30 pg N 27-31 Mean Corpuscular HGB Conc 33 g/dL N 31-36 Red Cell Distribution Width 14 % N 10.5-15 Platelet Count 275 10^3/uL N 150-450 Mean Platelet Volume 8.1 fL N 7.4-10.4 Abs Neutrophils 3.4 10^3/uL N 1.5-7.7 Abs Lymphocytes 2.9 10^3/uL N 1.0-4.8 Abs Monocytes 0.7 10^3/uL N 0-0.8 Abs Eosinophils 0.3 10^3/uL N 0-0.6 Abs Basophils 0.1 10^3/uL N 0-0.2 Abs Nucleated RBC 0 10^3/uL Granulocyte % 45.8 % Lymphocyte % 39.1 % Monocyte % 10.0 % Eosinophil % 3.5 % Basophil % 1.6 % Nucleated Red Blood Cells % 0.1 Urinalysis Profile 05/15/2018 [facility] Urine Color Yellow [phone] Urine Appearance Cloudy Urine Specific Slaughter 1.025 N 1.010-1.030 Urine pH 5.0 N 5-9 Urine Urobilinogen Negative Negative Urine Ketones Negative Negative Urine Protein Negative Negative Urine Leukocytes 3+ Abnormal Negative Urine Blood Negative Negative Urine Nitrite Negative Negative Urine Bilirubin Negative Negative Urine Glucose Negative Negative Urine White Blood Cell 3+(>20/hpf) Abnormal Absent Urine Red Blood Cell 2+(6-10/hpf) Abnormal Absent Urine Bacteria Absent Absent Urine Squamous Epithelial Cell Present Abnormal Absent Urine Culture And 05/15/2018 [facility] Urine Culture SEE RESULT 7 Sensitivities [phone] BELOW Laboratory test 02/28/2018 [facility] TSH Reflex FT4 <pending> finding [address] And/Or FT3 [place] [address] [phone] Xray 01/23/2018 [facility] [place] Ultrasound, <pending> [address] [place] [address] [phone] Laboratory test 01/09/2018 [facility] Vitamin D 50 pg /mL 18-78 8 finding [phone] 1,25-Dihydroxy Hla B27 01/09/2018 [facility] Hla B27 Negative 9 [phone] Hla B27 Interp See Comment 10 Urine Culture And 01/09/2018 [facility] Urine Culture SEE RESULT 11 Sensitivities [phone] BELOW Laboratory test 01/09/2018 [facility] Erythrocyte Sed 32 mm/Hr N 0-40 finding [phone] Rate CBC Auto Diff 01/09/2018 [facility] White Blood 6.5 10^3/uL N 3.5-6 [phone] Count 0.8 Red Blood Count 3.92 10^6/uL Low 4.00-5.40 Hemoglobin 12.2 g/dL N 12.0-16.0 Hematocrit 36 % N 35-47 Mean Corpuscular Volume 92 fL N 80-97 Mean Corpuscular Hemoglobin 31 pg N 27-31 Mean Corpuscular HGB Conc 34 g/dL N 31-36 Red Cell Distribution Width 15 % N 10.5-15 Platelet Count 279 10^3/uL N 150-450 Mean Platelet Volume 8.2 um3 N 7.4-10.4 Abs Neutrophils 3.1 10^3/uL N 1.5-7.7 Abs Lymphocytes 2.6 10^3/uL N 1.0-4.8 Abs Monocytes 0.5 10^3/uL N 0-0.8 Abs Eosinophils 0.3 10^3/uL N 0-0.6 Abs Basophils 0.1 10^3/uL N 0-0.2 Abs Nucleated RBC 0 10^3/uL Granulocyte % 47.6 % N 38-83 Lymphocyte % 40.1 % N 25-47 Monocyte % 7.0 % N 0-7 Eosinophil % 4.2 % N 0-6 Basophil % 1.1 % N 0-2 Nucleated Red Blood Cells % 0 Laboratory test 01/09/2018 [facility] LDL Cholesterol 143 mg/dL 12 finding [phone] Direct Hemoglobin A1c (Glyco HGB) 5.7 % High 4.0-5.6 13 Comp Metabolic Panel 01/09/2018 [facility] Sodium 139 mmol/L N 135-145 [phone] Potassium 3.9 mmol/L N 3.5-5.0 Chloride 103 mmol/L N 101-111 Co2 Carbon Dioxide 28 mmol/L N 22-32 Anion Gap 8 mmol/L N 2-11 Glucose 85 mg/dL N 70-100 Blood Urea Nitrogen 17 mg/dL N 6-24 Creatinine 0.63 mg/dL N 0.51-0.95 BUN/Creatinine Ratio 27.0 High 8-20 Calcium 9.6 mg/dL N 8.6-10.3 Total Protein 6.5 g/dL N 6.4-8.9 Albumin 3.7 g/dL N 3.2-5.2 Globulin 2.8 g/dL N 2-4 Albumin/Globulin Ratio 1.3 N 1-3 Total Bilirubin 0.20 mg/dL N 0.2-1.0 Alkaline Phosphatase 126 U/L High 34-104 Alt 8 U/L N 7-52 Ast 12 U/L Low 13-39 Egfr Non- 91.9 >60 Egfr 111.2 >60 14 Urine Microalbumin 01/09/2018 [facility] Ur Microalbumin < 15.0 Random [phone] (mg/L) Urine Creatinine 67.76 mg/dL Urine Microalbumin/Creatinine TNP <31 15 Urinalysis Profile 01/09/2018 [facility] Urine Color Yellow [phone] Urine Appearance Clear Urine Specific Slaughter 1.012 N 1.010-1.030 Urine pH 6.0 N 5-9 Urine Urobilinogen Negative Negative Urine Ketones Negative Negative Urine Protein Negative Negative Urine Leukocytes 1+ Abnormal Negative Urine Blood Negative Negative Urine Nitrite Negative Negative Urine Bilirubin Negative Negative Urine Glucose Negative Negative Urine White Blood Cell Trace(0-5/hpf) Absent Urine Red Blood Cell Trace(0-2/hpf) Absent Urine Bacteria Absent Absent Urine Squamous Epithelial Cell Present Abnormal Absent 1 Because ethnic data is not always readily available, this report includes an eGFR for both -Americans and non- Americans. The National Kidney Disease Education Program (NKDEP) does not endorse the use of the MDRD equation for patients that are not between the ages of 18 and 70, are , have extremes of body size, muscle mass, or nutritional status, or are non- or non-. According to the National Kidney Foundation, irrespective of diagnosis, the stage of the disease is based on the level of kidney function: Stage Description GFR(mL/min/1.73 m(2)) 1 Kidney damage with normal or decreased GFR 90 2 Kidney damage with mild decrease in GFR 60-89 3 Moderate decrease in GFR 30-59 4 Severe decrease in GFR 15-29 5 Kidney failure <15 (or dialysis) 2 Desirable: <150 Borderline High: 150-199 High: 200-499 Very High: >500 3 Desirable: <200 Borderline High: 200-239 High: >239 4 Low: <40 Desirable: 40-60 High: >60 5 Desirable: <100 Near Optimal: 100-129 Borderline High: 130-159 High: 160-189 Very High: >189 6 FASTING Copy Result to: YURI BENNETT ([id number]) PT NOT FASTING WANTED TO CONTINUE WITH BLOOD WORK ANYWAY 7 SEE RESULT BELOW Name: SHU MORRIS : [address]: Sly Griffin MD Acct: [id number] Unit: [id number] AGE: 78 Location: ED Re05/15/18 SEX: F Status: REG ER SPEC: [id number] SHERRIE: 05/16/18-[address]: Dylan London NP REQ: [id number] RECD: 05/16/186 STATUS: COMP [facility] DR: Cathie Bennett MD _ SOURCE: URINE [facility]: ORDERED: Urine Culture Procedure Result Reported Site Urine Culture Final 05/17/18- 906 ML No growth of clinically significant organisms * ML - Main Lab . END OF REPORT DEPARTMENT OF PATHOLOGY, [address] [place] [address] Rojelio Cullen M.D. Director [facility] # [id number] ADDITIONAL INFORMATION This test was developed and its performance characteristics determined by [facility] in a manner consistent with CLIA requirements. This test has not been cleared or approved by the U.S. Food and Drug Administration. Test Performed by: [facility] - [facility] [address] [place] [address] 9 REFERENCE VALUE Not Applicable 10 RESULT: HLA-B27 antigen was not detected. ADDITIONAL INFORMATION Method: Flow Cytometry Performing Laboratory CLIA# [id number] Test Performed by: [facility] [address] [place] [address] 11 SEE RESULT BELOW Name: SHU MORRIS Amy : [address]: Yuri Bennett MD Acct: [id number] Unit: [id number] AGE: 77 Location: [facility] Re01/09/18 SEX: F Status: REG REF SPEC: [id number] SHERRIE: 01/09/[address]: Yuri Bennett MD REQ: [id number] RECD: 01/09/18 STATUS: COMP _ SOURCE: URINE SPDESC: ORDERED: Urine Culture Procedure Result Reported Site Urine Culture Final 01/10/18- 1637 ML No Growth (<1,000 CFU/mL) * ML - Main Lab . END OF REPORT DEPARTMENT OF PATHOLOGY, [address] [place] [address] Rojelio Cullen M.D. Director [facility] # [id number] Desirable: <100 Near Optimal: 100-129 Borderline High: 130-159 High: 160-189 Very High: >189 13 Therapeutic target for the treatment of diabetes mellitus patients is <7% HBA1C, and in selective patients <6.0%. Please refer to [place] [employer] diabetic care guidelines for further information. 14 Because ethnic data is not always readily available, this report includes an eGFR for both -Americans and non- Americans. The National Kidney Disease Education Program (NKDEP) does not endorse the use of the MDRD equation for patients that are not between the ages of 18 and 70, are , have extremes of body size, muscle mass, or nutritional status, or are non- or non-. According to the National Kidney Foundation, irrespective of diagnosis, the stage of the disease is based on the level of kidney function: Stage Description GFR(mL/min/1.73 m(2)) 1 Kidney damage with normal or decreased GFR 90 2 Kidney damage with mild decrease in GFR 60-89 3 Moderate decrease in GFR 30-59 4 Severe decrease in GFR 15-29 5 Kidney failure <15 (or dialysis) 15 Unable to calculate due to low microalbumin Procedures Date Code Description Status 03/17/2018 88966 Brief Emotional/Behav Assessment W/ Scoring Doc Per Completed Standard Inst 04/01/2017 91920169 Mammogram Completed 12/17/2013 46525 Anesthesia, Facial Bone Surgery Not Otherwise Spec Completed 12/11/2013 31567 EKG Interpretation And Report Only Completed 08/27/2013 98939 Anesthesia, Neck Organ Surgery Not Otherwise Spec 1Yr Completed Or Older 07/23/2013 37315 Anesthesia, Neck Organ Surgery Not Otherwise Spec 1Yr Completed Or Older 07/20/2013 48800 EKG Interpretation And Report Only Completed Encounters Type Date Location Provider Dx Diagnosis Office Visit 06/04/2018 Yuri Craft, M54.6 Pain in thoracic 3:30p Stevie Ann MD, PHD spine E11.9 Type 2 diabetes mellitus without complications J44.9 Chronic obstructive pulmonary disease, unspecified Z72.0 Tobacco use Z59.8 Other problems related to housing and economic circumstances Office Visit 03/17/2018 2:30p Yuri Craft, M54.6 Pain in thoracic Stevie Ann MD, PHD spine R05 Cough E11.9 Type 2 diabetes mellitus without complications Z72.0 Tobacco use I10 Essential (primary) hypertension F32.0 Major depressive disorder, single episode, mild J44.9 Chronic obstructive pulmonary disease, unspecified R35.0 Frequency of micturition R30.0 Dysuria J30.2 Other seasonal allergic rhinitis Office Visit 02/28/2018 1:45p Yuri Craft, R53.83 Other fatigue Stevie Ann MD, PHD M54.5 Low back pain E11.9 Type 2 diabetes mellitus without complications M54.6 Pain in thoracic spine I10 Essential (primary) hypertension E03.9 Hypothyroidism, unspecified Office Visit 01/07/2018 2:00p Yuri Craft M54.5 Low back pain Stevie Ann MD, PHD M54.6 Pain in thoracic spine Z72.0 Tobacco use E11.9 Type 2 diabetes mellitus without complications I10 Essential (primary) hypertension K21.9 Gastro-esophageal reflux disease without esophagitis J44.9 Chronic obstructive pulmonary disease, unspecified R13.14 Dysphagia, pharyngoesophageal phase Plan of Treatment 06/04/2018 - Yuri Bennett MD, PHDM54.6 Pain in thoracic spineNew Medication: Lyrica 75 mg - 1 tab by mouth twice a day after mealsValium 5 mg - 1 tab by mouth three times a day as ddlfkeH84.9 Type 2 diabetes mellitus without complicationsComments:For Proper management of diabetes, we need to check * A1C (3-month average of blood sugar) every 3 months if uncontrolled, or every 6 months if well controlled. * Annual Dilated eye exam * Foot exam every 6 months * Cholesterol levels annually* Kidney function every 6 months - including microalbumin (protein spillin in urine)* Check blood pressure regularly (at home and every visit)* No smoking (cigarettes or marijuana)J44.9 Chronic obstructive pulmonary disease, vffokrmmkveJ67.0 Tobacco useNew Medication: Nicotrol NS 10 mg/ml - 1 every 4 hours as hqbbypU29.8 Other problems related to housing and economic circumstancesComments:We'll get Junie Grover to help with housing and financial logistics if needed.Follow up:Please DENIS Grover
--- OUTSIDE RECORDS SUMMARY | 2018-06-18 21:20 | XMS REPORT | Continuity of Care Document ---
:1940 External Reference #:[id number] Author Name Rosario Terry Care Team Providers Name Role Phone Yuri Bennett M.D. 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 Active Onset: 06/03/2018 Aortic valve disorder Haylee Santiago M.D. Active Onset: 06/03/2018 Chronic diastolic heart failure Haylee Santiago M.D. Active Family History Date Family Member(s) Observation Comments General Tuberculosis father General Cancer mother Social History Type Date Description Comments Sex Unknown Marital Status Lives With Alone Occupation Retired Tobacco Use Start: Unknown Light tobacco smoker (10 or fewer cigarettes/day) Smoking Status Reviewed: 06/03/18 Light tobacco smoker (10 or fewer cigarettes/day) [...] Form Strength Qnty SIG Indications Ordering Provider Crestzheng 06/03 Active Tablets 5mg 90tab 1 tab by E78.2 Haylee s mouth every Pamela, M.DIon Losartan 06/03 Active Tablets 50mg 90tab 1 by mouth Haylee Simmons s every day Andressa Santiago Effexor XR [...] four mcg/Act times a day as needed Oxygen Active Misc 3 l nc Unknown / continuous Fluticasone Active Suspension 50mcg/Act 2 sprays Unknown Propionate /0000 each nostril daily as needed Trazodone HCL Active Tablets 100mg take 1 Unknown /0000 tablet by mouth at bedtime Vesicare Active Tablets 10mg 1 by mouth Unknown /0000 every day Celebrex Active Capsules 100mg 1 by mouth Unknown /0000 twice a day Vitamin D-3 Active Capsules 1000Unit 1 by mouth Unknown /0000 every day Quinapril HCL Active Tablets 10mg 1 by mouth Unknown /0000 every day Baclofen Active Tablets 5mg 1 tab by Unknown /0000 mouth at bedtime Omeprazole Active Capsules DR 20mg 1 by mouth Unknown /0000 every day Ranitidine HCL Active Capsules 150mg 1 by mouth Unknown /0000 once a day Hydrocodone-Acet Active Tablets 5-325mg 1 q day as Unknown aminophen /0000 needed for pain Cozaar 05/02 Hx Tablets 25mg 90tab 1 by mouth R05 Haylee s every day Jamie Santiago M.D. 06/02 Lisinopril 07/23 Hx Tablets 5mg 30tab 1 by mouth R05 Brian s every day Jamie Nicole M.D. 05/02 Robaxin 02/07 Hx Tablets 500mg 60tab 1-2 tab by S33.5xxA Andrae Lama /2014 s mouth four [place], - times a day M.D. 05/30 as needed spasm Amitriptyline 12/31 Hx Tablets 10mg 120ta 4 tabs Hieu HCL /2014 bs daily Shruti, - 04/01 Gabapentin 12/10 Hx Capsules 100mg 270ca 1po three 729.2 Hieu ps times a day Shruti, - for 7 days MD 03/03 then 2 by /2014 mouth three times a day for 7 days then 3 by mouth three times a day Lisinopril 05/21 Hx Tablets 20mg 90tab 1 by mouth Haylee /2014 s every day Pamela, - M.D. 07/22 Pravastatin 03/08 Hx Tablets 20mg 90tab 2 tablet by 272.4 Hayleeosbaldo Menard s mouth once [place], - daily at .D. 12/30 bedtime Aspirin Ec Hx Tablets DR 81mg 100ta [...] Abuse-Det s prn - 12/09 Meclizine HCL 00 Hx Tablets 25mg 60tab 2 by mouth Unknown /0000 s four times - a day as 08/28 needed /2017 Amitriptyline Hx Tablets 25mg 1 by mouth Unknown HCL /0000 every night - at bedtime 12/31 [place] Q Plus 100 Hx 2 softgel Unknown /0000 po daily - 11/03 Hydrocodone-Acet 00 Hx Tablets 7.5-325mg Take 1 Unknown aminophen /0000 Tablet - Every 4 To 08/28 6 Hours Needed For Pain Oxycodone HCL 00/00 Hx Tablets 30mg Take 1 Tab Unknown /0000 3 Times A - Day as 04/30 needed Fenofibrate 00/00 Hx Tablets 160mg take 1 Unknown /0000 tablet once - daily 08/28 Celecoxib 00/ Hx Capsules 100mg 1 po bid Unknown /0000 - 04/01 Effexor XR Hx Caps ER 75mg 1 by mouth Unknown /0000 24HR every day - 06/02 Amitriptyline Hx Tablets 25mg 1 by mouth Unknown HCL /0000 every night - at bedtime 05/02 Cyclobenzaprine Hx Tablets 10mg one by Unknown HCL /0000 mouth three - times a day 12/30 as needed /2015 spasm Meloxicam Hx Tablets 15mg once daily Unknown /0000 with food - 12/30 Oxybutynin Hx Tablets ER 10mg 1 by mouth Unknown Chloride ER /0000 24HR every day - 12/30 Imitrex Hx Tablets 100mg take 1 by Unknown /0000 mouth every - 4-6 hour as 12/30 needed for /2015 migraine Carbamazepine Hx Tablets 200mg 1 tab by Unknown /0000 mouth daily - 12/30 Sucralfate Hx Tablets 1gm take 1 Unknown /0000 tablet four - times a day 05/02 (Before /2016 Meals And AT Night) Not currently Raloxifene HCL / Hx Tablets 60mg take 1 Unknown /0000 tablet by - mouth once 06/02 daily ( no longer taking) Meloxicam 00/00 Hx Tablets 15mg take 1 Unknown /0000 tablet by - mouth once 06/02 daily /2018 Sumatriptan Hx Tablets 100mg Take 1 Unknown Succinate /0000 Tablet By - Mouth AT 06/02 Onset Of Headache, May Repeat 1 Time AF... Ranitidine HCL 00/ Hx Tablets 300mg 1 daily at Unknown /0000 night - 06/03 Losartan Hx Tablets 25mg 1 by mouth Unknown Potassium /0000 every day - 06/03 Medications Administered in Office Medication Date Status Form Strength Qnty SIG Indications Ordering Provider Inj, 09/18/ Administered Injection Ernesto Peters Regadenoson, 0.1 2016 MG Andresas Aden, KENNEDI, MAGNO Aminophylline 09/18/ Administered Injection Ernesto Aden M.D., KENNEDI, MAGNO Technetium TC 09/18/ Administered Injection Ernesto Peters 99M Tetrofosmin, 2016 Markie, Per Unit Dose Up M.D., To 40 FACC, Millicuries FASNC Inj, 05/16/ Administered Injection Soham S. Regadenoson, 0.1 2015 DO Kenny MG FACC Inj, 05/16/ Administered Injection Haylee Regadenoson, 0.1 2015 Pamela MG M.D. Aminophylline 05/16/ Administered Injection Soham S. 2015 Kenny DO FACC Aminophylline 05/16/ Administered Injection Haylee 2015 Alondra Santiago.Lorrie Technetium TC 05/16/ Administered Injection Soham S. 99M Tetrofosmin, 2015 DO Kenny Per Unit Dose Up FACC To 40 Millicuries Technetium TC 05/16/ Administered Injection Haylee 99M Tetrofosmin, 2015 Pamela, Per Unit Dose Up M.D. To 40 Millicuries Inj, 06/27/ Administered Injection Ernesto Peters Regadenoson, 0.1 2012 MG Alondra Aden.D., FACC, FASNC Aminophylline 06/27/ Administered Injection Ernesto Peters 2012 Andressa Aden, FACC, FASNC Technetium TC 06/27/ Administered Injection Ernesto Peters 99M Tetrofosmin, 2012 Markie Per Unit Dose Up M.D., To 40 FACC, Millicuries FASNC Immunizations CPT Code Status Date Vaccine Lot # [id number] Given 01/09/2016 Fluzone Vaccine Vital Signs Date Vital Result Comment 06/03/2018 9:48am Height 62 inches 5'2" Weight 140.00 lb no shoes Heart Rate 80 /min BP Systolic Sitting 150 mmHg lue reg cuff BP Diastolic Sitting 80 mmHg lue reg cuff BP Systolic Standing 146 mmHg lue reg cuff BP Diastolic Standing 80 mmHg lue reg cuff Respiratory Rate 16 /min BMI (Body Mass Index) 25.6 kg/m2 Ejection Fraction 60-65% echo. 05/29/18 05/02/2018 8:34am Height 62 inches 5'2" Weight [...] Date Facility Test Result H/L Range Note Lipid Panel - 05/28/2018 [facility] Creatine 22 U/L N 10-[address] Kinase(CK) [place] [address] [phone] Comp Metabolic 05/28/2018 [facility] Sodium 139 mmol/L N 135- [address] [place] [address] [phone] Potassium 4.0 mmol/L N 3.5-5.0 Chloride 105 [...] Egfr Non- 68.6 >60 Egfr 83.0 >60 2 Lipid Profile 05/28/2018 [facility] Triglycerides 158 mg/dL 3 (Trig/Chol/HDL) [address] [place] [address] [phone] Cholesterol 222 mg/dL 4 HDL Cholesterol 56.6 mg/dL 5 LDL Cholesterol 134 mg/dL 6 Laboratory test finding 12/15/2014 TSH (Thyroid Stim 1.22 ?IU/mL N 0.34- 5.60 Horm) Vitamin B12 227 pg/mL N 180-914 7 Folic Acid (Folate) 6.14 ng/mL N >3.99 Laboratory test finding 04/14/2014 Ast 19 U/L N 13-39 Creatine Kinase 31 U/L N 10-223 LDL Cholesterol Direct 123 mg/dL N 8 Glucose 103 mg/dL High 70-100 Laboratory test 12/28/2013 [facility] Activated 33.9 seconds N 24.0-36.[address] [place] [address] Thrombo Time [phone] Laboratory test 12/28/2013 [facility] Inr 0.97 N 0.85-1.[address] [place] [address] [phone] 1 FASTING Copy Result to: YURI BENNETT ([id number]) PT NOT FASTING WANTED TO CONTINUE WITH BLOOD WORK ANYWAY 2 Because ethnic data is not always readily [...] 15-29 5 Kidney failure <15 (or dialysis) 3 Desirable: <150 Borderline High: 150-199 High: 200-499 Very High: >500 4 Desirable: <200 Borderline High: 200-239 High: >239 5 Low: <40 Desirable: 40-60 High: >60 6 Desirable: <100 Near Optimal: 100-129 Borderline High: 130-159 High: 160-189 Very High: >189 7 Normal Range 180 to 914 Indeterminate Range 145 to 180 Deficient Range <145 8 Desirable <100 Near Optimal 100-129 Borderline high 130-159 High 160-189 Very High >189 Procedures Date Code Description Status 05/29/2018 57506 ECHO Transthoracic, Real-Time 2D With Doppler And Color Completed Flow 05/02/2018 43169 EKG Tracing & Interpretation Completed 03/06/2018 30018 Destruction ALL Benign Or Premalignant Lesion (Other Than Completed [place] 11/21/2017 70615 EEG Recording Awake & Asleep Completed 06/26/2017 11894 ECHO Transthorasic Realtime 2D W Doppler & Color Flow Hosp Completed 06/26/2017 00832 EKG, Interpretation Only Completed 12/19/2016 17703 EKG Tracing & Interpretation Completed 09/24/2016 06275 ECHO Transthoracic, Real-Time 2D With Doppler And Color Completed Flow 09/18/2016 55349 Myocardial Perfusion Imaging Tomographic (Spect) Multiple Completed Studies 09/18/2016 57260 Stress Test Completed 09/14/2016 22383 EKG Tracing & Interpretation Completed 05/20/2015 00876 Nerve Conduction 05-06 Studies Completed 05/20/2015 94736 Needle Electromyography Complete, Five Or More Muscles Completed Studied 05/18/2015 27985 Holter Monitoring 24 HR New Completed 05/16/2015 76853 Stress Test Completed 05/16/2015 00834 Myocardial Perfusion Imaging Tomographic (Spect) Multiple Completed Studies 05/16/2015 10417 Myocardial Perfusion Imaging Tomographic (Spect) Multiple Completed Studies 05/13/2015 56823 Holter Monitoring 24 HR New Completed 11/10/2014 84060 EKG Tracing & Interpretation Completed 11/10/2014 32442 EKG Tracing & Interpretation Completed 04/15/2014 10517 Artery Study Extremity Mult Levels Bilateral Completed 03/08/2014 44205 EKG Tracing & Interpretation Completed 12/29/2013 36398 Treadmill Interp/Report Only Completed 12/29/2013 63592 Stress Test Supervsn W/Out I/R Completed 12/29/2013 73427 EKG, Interpretation Only Completed 12/28/2013 02429 EKG, Interpretation Only Completed 08/21/2012 10361 Artery Study Extremity Mult Levels Bilateral Completed 08/15/2012 30916 Carotid Doppler,Bilateral Completed 06/27/2012 72938 ECHO Transthoracic, Real-Time 2D With Doppler And Color Completed Flow 06/27/2012 90888 ECHO Transthoracic, Real-Time 2D With Doppler And Color Completed Flow 06/27/2012 49056 Stress Test Completed 06/27/2012 20117 Myocardial Perfusion Imaging Tomographic (Spect) Multiple Completed Studies 06/26/2012 21944 Stress Test Completed 06/24/2012 52205 EKG Tracing & Interpretation Completed 04/22/2012 04194 EKG, Interpretation Only Completed 03/27/2010 53608 EKG, Interpretation Only Completed Encounters Type Date Location Provider Dx Diagnosis Office Visit 05/02/2018 [facility] Haylee Santiago, J30.9 Allergic rhinitis, 8:40a 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 [facility] M.Lorrie unspecified R05 Cough I25.10 Athscl heart disease of [place] coronary artery w/o ang pctrs R07.89 Other chest pain Z72.0 Tobacco use I73.9 Peripheral vascular disease, unspecified I34.0 Nonrheumatic mitral (valve) insufficiency I34.2 Nonrheumatic mitral (valve) stenosis Office Visit 03/06/2018 1:30p [facility] Jasmin Andrew, L82.1 Other seborrheic MD keratosis D69.2 Other nonthrombocytopenic purpura D18.01 Hemangioma [...] the nervous sys Office Visit 11/22/2017 4:08p [facility] Lorna Newton R26.0 Ataxic gait Assoc, Hospitalists N.P. R29.6 Repeated falls G40.909 Epilepsy, unsp, not intractable, without status epilepticus Office Visit 11/21/2017 4:08p [facility] Hilario Saba R26.0 Ataxic gait Assoc,usama ROTHMAN M.D. Hospitalists R29.6 Repeated falls G40.909 Epilepsy, unsp, not intractable, without status epilepticus Office Visit 10/15/2017 [facility] Ezra S22.070A Wedge compression 2:15p Assoc,pc DALIA Taveras fracture of Hospitalists T9-T10 vertebra, init S22.080A Wedge compression fracture of T11-T12 vertebra, init D51.9 Vitamin B12 deficiency anemia, unspecified R26.0 Ataxic gait Office Visit 10/14/2017 7:00a [facility] Jaleesa De La Vega, R26.0 Ataxic gait R29.6 Repeated falls R41.82 Altered mental status, unspecified Office Visit 10/14/2017 [facility] Ezra S22.070A Wedge compression 2:14p Assoc,pc [place] fracture of Hospitalists T9-T10 vertebra, init S22.080A Wedge compression fracture of T11-T12 vertebra, init E11.9 Type 2 diabetes mellitus without complications E03.9 Hypothyroidism, unspecified G89.29 Other chronic pain I10 Essential (primary) hypertension Office Visit 10/13/2017 [facility] Ezra S22.070A Wedge compression 2:13p Assoc,pc [place] fracture of Hospitalists T9-T10 vertebra, init S22.080A Wedge compression fracture of T11-T12 vertebra, init E11.9 Type 2 diabetes mellitus without complications E03.9 Hypothyroidism, unspecified Office Visit 10/12/2017 7:00a Neurosurgery Vassilios R29.6 Repeated falls Services Of Isabelle Pelayo MD M80.88xD Oth osteopor w crnt path fx, verteb, 7thD Office Visit 10/12/2017 7:00a [facility] Jaleesa De La Vega, R26.0 Ataxic gait R29.6 Repeated falls R41.82 Altered mental status, unspecified Office Visit 10/12/2017 [facility] Ezra S22.070A Wedge compression 2:13p Assoc,pc [place] fracture of Hospitalists T9-T10 vertebra, init S22.080A Wedge compression fracture of T11-T12 vertebra, init E11.9 Type 2 diabetes mellitus without complications G89.29 Other chronic pain E03.9 Hypothyroidism, unspecified I10 Essential (primary) hypertension Office Visit 10/11/2017 2:12p [place] Genesis Munguia R29.6 Repeated falls Assoc,pc [place] Hospitalists R41.0 Disorientation, unspecified S22.070A Wedge compression fracture of T9-T10 vertebra, init S22.080A Wedge compression fracture of T11-T12 vertebra, init Office Visit 08/29/2017 9:30a [facility] Junie Villar I25.10 Athscl heart Of [facility] Glendy Martins disease of [place] coronary artery w/o ang pctrs I73.9 Peripheral vascular disease, unspecified I35.0 Nonrheumatic aortic (valve) stenosis R06.02 Shortness of breath Office Visit 06/27/2017 12:06p [facility] F03.90 Unspecified Assoc,usama Woodson M.D. dementia without Hospitalists behavioral disturbance I10 Essential (primary) hypertension J44.9 Chronic obstructive pulmonary disease, unspecified W19.xxxA Unspecified fall, initial encounter Office Visit 06/26/2017 7:00a [facility] Jaleesa De La Vega, R29.6 Repeated falls G89.29 Other chronic pain Z79.899 Other nursing home (current) drug therapy Office Visit 06/25/2017 [facility] F03.90 Unspecified 12:03p Assoc,usama Atwood N.P. dementia without Hospitalists behavioral disturbance I10 Essential (primary) hypertension J44.9 Chronic obstructive pulmonary disease, unspecified W19.xxxA Unspecified fall, initial encounter Office Visit 06/25/2017 7:00a [facility] Vassilios R53.1 Weakness Services Of Isabelle Pelayo MD M79.604 Pain in right leg Office Visit 12/19/2016 2:45p [facility] Haylee Santiago I25.10 Athscl heart Of Isabelle Crisostomo disease of [place] coronary artery w/o ang pctrs R10.13 Epigastric pain I73.9 Peripheral vascular disease, unspecified R06.02 Shortness of breath I35.0 Nonrheumatic aortic (valve) stenosis I34.0 Nonrheumatic mitral (valve) insufficiency I34.2 Nonrheumatic mitral (valve) stenosis I36.1 Nonrheumatic tricuspid (valve) insufficiency I10 Essential (primary) hypertension Office Visit 09/14/2016 1:00p [facility] Haylee Santiago, 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 I71.4 Abdominal aortic aneurysm, without rupture I73.9 Peripheral vascular disease, unspecified E78.2 Mixed hyperlipidemia Z72.0 Tobacco use I25.10 Athscl heart disease of [place] coronary artery w/o ang pctrs R42 Dizziness [...] mobility R29.6 Repeated falls Office Visit 06/15/2015 [place] Hieu Bahena, G62.9 Polyneuropathy, 10:00a Neurologic MD unspecified Services Of [facility] M26.60 Temporomandibular joint disorder, unspecified R90.82 White matter disease, unspecified R26.89 Other abnormalities of gait and mobility Office Visit 06/02/2015 2:45p [facility] Of Haylee Santiago M.D. R63.0 Anorexia [facility] I25.10 Athscl heart disease of [place] coronary artery w/o ang pctrs I10 Essential (primary) hypertension Office Visit 05/23/2015 [facility] Andrae Lama M80.88xS Oth osteopor w 1:40p Services Of Isabelle Valdovinos M.D. 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 Office Visit 11/10/2014 [facility] Marilee Sanford, 414.01 Coronary 3:30p Cardiology Of [place] Atherosclerosis [facility] [place] 272.4 Hyperlipidemia Other Unspec 401.1 Hypertension Benign 305.1 Tobacco Use Disorder Office Visit 05/21/2014 [facility] Haylee Santiago, 414.01 Coronary 1:30p Cardiology Of Andressa Atherosclerosis [facility] [place] 272.4 Hyperlipidemia Other Unspec 401.1 Hypertension Benign 729.1 Myalgia & Myositis Unspec Office Visit 03/08/2014 3:45p [facility] Haylee Santiago, 786.50 Pain Chest Of [facility] Andressa Unspec 272.4 Hyperlipidemia Other Unspec 401.9 Hypertension Unspec 492.8 Emphysema Other 443.9 Peripheral Vascular Disease Unspec Office Visit 12/29/2013 10:57a [facility] Chela Griffith, 786.50 Pain Chest Assoc,usama Crisostomo Unspec Hospitalists 272.4 Hyperlipidemia Other Unspec 250.00 Diabetes Mellitus W/O Compl Type II Or Unspec Controlled 486 Pneumonia Organism Unspec Office Visit 12/29/2013 3:31p [facility] Jacky Andrew 786.50 Pain Chest Isabelle Aviles M.D. Unspec Office Visit 12/28/2013 10:57a [facility] Елена Oliva, 786.50 Pain Chest Assoc,pc DO Unspec Hospitalists 272.4 Hyperlipidemia Other Unspec 250.00 Diabetes Mellitus W/O Compl Type II Or Unspec Controlled 401.9 Hypertension Unspec Office Visit 01/13/2013 10:35a [facility] Lorna Newton, 577.0 Pancreatitis Acute Assoc,pc N.P. Hospitalists 250.00 Diabetes Mellitus W/O Compl Type II Or Unspec Controlled 492.8 Emphysema Other Office Visit 01/12/2013 10:35a [facility] Lorna Newton, 577.0 Pancreatitis Acute Assoc,pc N.P. Hospitalists 250.00 Diabetes Mellitus W/O Compl Type II Or Unspec Controlled 492.8 Emphysema Other Office Visit 01/11/2013 10:34a [facility] Lornarylie Newton, 577.0 Pancreatitis Acute Assoc,usama N.PIon Hospitalists 250.00 Diabetes Mellitus W/O Compl Type II Or Unspec Controlled 492.8 Emphysema Other Office Visit 01/10/2013 [facility] Enrique Andrew 577.0 Pancreatitis 10:27a Assoc,usama Kellogg M.D. Acute Hospitalists Hospitalist 250.00 Diabetes Mellitus W/O Compl Type II Or Unspec Controlled 492.8 Emphysema Other Office Visit 06/24/2012 [facility] Haylee Santiago, 414.01 Coronary 9:45a Cardiology Of Andressa Atherosclerosis [facility] [place] 786.09 Dyspnea & Respiratory Abnormalities Other 785.1 Palpitations Office Visit 08/06/2008 [facility] Andrae Lama 733.01 Osteoporosis 11:40a Services Of Isabelle Valdovinos M.D. Senile 733.13 FX Pathologic Vertebrae Plan of Treatment Future Appointment(s):07/11/2018 2:20 pm - Haylee Santiago M.D. at [facility]06/03/2018 - Haylee Santiago M.D.I25.10 Atherosclerotic heart disease of [place] coronary artery withComments:To prevent more plaque build up we need to optimize risks: cholesterol, blood pressure, diet and exercise.I73.9 Peripheral vascular disease, ebrusokgdghX82.0 Nonrheumatic mitral (valve) wfxtsexplubduI88.1 Nonrheumatic aortic (valve) dopzyklfcnoizH03.5 Low back painI50.32 Chronic diastolic (congestive) heart failureComments:I recommend minimizing or stopping Celebrex and similar medications as these can promote heart disease, raise BP and increase the fluid in your heart and lungs. Coordinate with your primary MD.Z72.0 Tobacco useComments:Continue to work on stopping.E78.2 Mixed hyperlipidemiaNew Medication:Crestor 5 mg - 1 tab by mouth every dayComments:LDL goal is <=70 with coronary artery disease.Recommendations:Healthy fats are nuts, oily fish and more. Avoid excessive fatty meats. For your elevated triglycerides and weight: Minimize foods with refined sugar, flour. Low "white" foods, white flour, sugar, rice, potatoes. Mediterranean diet. New Medicine: Rosuvastatin.R05 CoughComments:See primary care for post nasal drip and djruhD76 Essential (primary) hypertensionComments:Losartan: double to 50 mg/day , new eRx sent in.Follow up:3-4 weeks, f/u on new medications.R29.6 Repeated fallsNew Orders:Event Monitor, Ordered: 06/03/18
--- OUTSIDE RECORDS SUMMARY | 2018-06-18 21:20 | XMS REPORT | Continuity of Care Document ---
:1940 External Reference #:[id number] Author Name Caren Emili Care Team Providers Name Role Phone Martha Bennett M.D. Primary Care Physician Unavailable Payers Date Identification Numbers Payment Provider Subscriber Effective: 2017 Policy Number: [id number] Medicare Shu Yakov PayID: [id number] [address] [place] [address] Effective: 2006 Policy Number: [id number] Medicare Shu Yakov Expires: 2018 PayID: [id number] [address] [place] [address] Policy Number: [id number] Medicaid August Yakov PayID: [id number] [address] [place] [address] Advance Directives Description No Information Available Problems Date Description Provider Status Onset: 03/08/2014 Chest pain Haylee Santiago M.D. Active Onset: 03/08/2014 Hyperlipidemia Haylee Santiago M.D. Active Onset: 03/08/2014 Essential hypertension Haylee Santiago M.D. Active Onset: 03/08/2014 Pulmonary emphysema Haylee Santiago M.D. Active Onset: 03/08/2014 Peripheral vascular disease Hayele Santiago M.D. Active Onset: 05/21/2014 Coronary arteriosclerosis [...] heart disease of Haylee Santiago M.D. Active [place] coronary artery with unspecified angina pectoris Onset: [...] 25mg 90tab 1 by mouth R05 Haylee /2018 s every day Andressa Santiago Effexor XR [...] S33.5xxA Andrae Lama /2014 s mouth four [place], - times a day M.D. 05/30 as needed spasm Amitriptyline 12/31 Hx Tablets 10mg 120ta 4 tabs Hieu BROWN /2014 bs daily Jamie Bahena MD 04/01 Gabapentin 12/10 Hx Capsules 100mg 270ca 1po three 729.2 Hieu /2014 ps times a day Jamie Bahena for 7 days 03/03 then 2 by /2014 mouth three times a day for 7 days then 3 by mouth three times a day Lisinopril 05/21 Hx Tablets 20mg 90tab 1 by mouth Haylee s every day Jamie Santiago M.D. 07/22 Pravastatin 03/08 Hx Tablets 20mg [...] /0000 every night - at bedtime 12/31 [place] Q Plus 100 Hx 2 softgel Unknown [...] three - times a day 12/30 as spasm Meloxicam Hx Tablets 15mg once daily [...] 05/16/ Administered Injection Soham S. 99M Tetrofosmin, 2016 DO Kenny Per Unit Dose Up FACC To 40 Millicuries Technetium TC 05/16/ Administered Injection Haylee 99M Tetrofosmin, 2015 Pamela Per Unit Dose Up M.D. To 40 Millicuries Inj, 06/27/ Administered Injection Ernesto Peters Regadenoson, 0.1 2012 MG Thea AdenDIon, FACC, FASNC Aminophylline 06/27/ Administered Injection Ernesto Peters 2012 Andressa Aedn, FACC, FASNC Technetium TC 06/27/ Administered Injection [...] 103 mg/dL High 70-100 Laboratory test 12/28/2013 [facility] Inr 0.97 N 0.85-1.[address] [place], [place] [id number] [phone] Laboratory test 12/28/2013 [facility] Activated 33.9 seconds N 24.0-36.[address] [place] [address] Thrombo Time [phone] Normal Range 180 to 914 Indeterminate Range 145 to 180 Deficient Range <145 2 Desirable <100 Near Optimal 100-129 Borderline high 130-159 High 160-189 Very High >189 Procedures Date Code Description Status 05/02/2018 04722 EKG Tracing & Interpretation Completed 03/06/2018 36654 Destruction ALL Benign Or Premalignant Lesion (Other Than Completed [place] 11/21/2017 59002 EEG Recording Awake & Asleep Completed 06/26/2017 17143 ECHO Transthorasic Realtime 2D W Doppler & Color Flow Hosp Completed 06/26/2017 37861 EKG, Interpretation Only Completed 12/19/2016 13889 EKG Tracing & Interpretation Completed 09/24/2016 09079 ECHO Transthoracic, Real-Time 2D With Doppler And Color Completed Flow 09/18/2016 41311 Stress Test Completed 09/18/2016 49460 Myocardial Perfusion Imaging Tomographic (Spect) Multiple Completed Studies 09/14/2016 07474 EKG Tracing & Interpretation Completed 05/20/2015 99970 Nerve Conduction 05-06 Studies Completed 05/20/2015 28178 Needle Electromyography Complete, Five Or More Muscles Completed Studied 05/18/2015 14100 Holter Monitoring 24 HR New Completed 05/16/2015 42827 Stress Test Completed 05/16/2015 28858 Myocardial Perfusion Imaging Tomographic (Spect) Multiple Completed Studies 05/16/2015 05470 Myocardial Perfusion Imaging Tomographic (Spect) Multiple Completed Studies 05/13/2015 13145 Holter Monitoring 24 HR New Completed 11/10/2014 74179 EKG Tracing & Interpretation Completed 11/10/2014 20552 EKG Tracing & Interpretation Completed 04/15/2014 28334 Artery Study Extremity Mult Levels Bilateral Completed 03/08/2014 73065 EKG Tracing & Interpretation Completed 12/29/2013 71408 Treadmill Interp/Report Only Completed 12/29/2013 26597 Stress Test Supervsn W/Out I/R Completed 12/29/2013 47217 EKG, Interpretation Only Completed 12/28/2013 02225 EKG, Interpretation Only Completed 08/21/2012 65672 Artery Study Extremity Mult Levels Bilateral Completed 08/15/2012 21321 Carotid Doppler,Bilateral Completed 06/27/2012 86608 ECHO Transthoracic, Real-Time 2D With Doppler And Color Completed Flow 06/27/2012 71430 ECHO Transthoracic, Real-Time 2D With Doppler And Color Completed Flow 06/27/2012 45788 Stress Test Completed 06/27/2012 49864 Myocardial Perfusion Imaging Tomographic (Spect) Multiple Completed Studies 06/26/2012 92406 Stress Test Completed 06/24/2012 97382 EKG Tracing & Interpretation Completed 04/22/2012 95762 EKG, Interpretation Only Completed 03/27/2010 72205 EKG, Interpretation Only Completed Encounters Type Date Location Provider Dx Diagnosis Office Visit 05/02/2018 [facility] Haylee Santiago, J30.9 Allergic rhinitis, 8:40a Of [employer] Field Coordinator AT [facility] M.D. unspecified R05 Cough I25.10 Athscl heart disease of [place] coronary artery w/o ang pctrs R07.89 Other chest pain Z72.0 Tobacco use I73.9 Peripheral vascular disease, unspecified I34.0 Nonrheumatic mitral (valve) insufficiency I34.2 Nonrheumatic mitral (valve) stenosis Office Visit 03/06/2018 1:30p [facility] Dermatology Jasmin Andrew, L82.1 Other seborrheic MD keratosis D69.2 Other nonthrombocytopenic purpura D18.01 Hemangioma of skin and subcutaneous tissue L91.8 Other hypertrophic disorders of the skin Z85.820 Personal history of malignant melanoma of skin L57.0 Actinic keratosis Office Visit 11/22/2017 Neurohospitalist Aishwarya Mancia, R56.9 Unspecified 7:00a Clinic convulsions R29.6 Repeated falls F03.90 Unspecified dementia without behavioral disturbance Z82.0 Family history of epilepsy and oth dis of the nervous sys Office Visit 11/22/2017 4:08p [facility] Lorna Newton, R26.0 Ataxic gait Assoc,pc Hospitalists N.P. R29.6 Repeated falls G40.909 Epilepsy, unsp, not intractable, without status epilepticus Office Visit 11/21/2017 4:08p [facility] Hilario Saba R26.0 Ataxic gait Assoc,usama ROTHMAN M.D. Hospitalists R29.6 Repeated falls G40.909 Epilepsy, unsp, not intractable, without status epilepticus Office Visit 10/15/2017 [facility] Ezra S22.070A Wedge compression 2:15p Assoc,pc DALIA Taveras fracture of Hospitalists T9-T10 vertebra, init S22.080A Wedge compression fracture of T11-T12 vertebra, init D51.9 Vitamin B12 deficiency anemia, unspecified R26.0 Ataxic gait Office Visit 10/14/2017 7:00a [facility] Clinic Jaleesa De La Vega, R26.0 Ataxic gait R29.6 Repeated falls R41.82 Altered mental status, unspecified Office Visit 10/14/2017 [facility] Ezra S22.070A Wedge compression 2:14p Assoc,pc [place], [place] fracture of Hospitalists T9-T10 vertebra, init S22.080A Wedge compression fracture of T11-T12 vertebra, init E11.9 Type 2 diabetes mellitus without complications E03.9 Hypothyroidism, unspecified G89.29 Other chronic pain I10 Essential (primary) hypertension Office Visit 10/13/2017 [facility] Ezra S22.070A Wedge compression 2:13p Assoc,pc [place] fracture of Hospitalists T9-T10 vertebra, init S22.080A Wedge compression fracture of T11-T12 vertebra, init E11.9 Type 2 diabetes mellitus without complications E03.9 Hypothyroidism, unspecified Office Visit 10/12/2017 7:00a Neurosurgery Vassilios R29.6 Repeated falls Services Of [facility] MD Pierce M80.88xD Oth osteopor w crnt path fx, verteb, 7thD Office Visit 10/12/2017 7:00a [facility] Clinic Jaleesa De La Vega, R26.0 Ataxic gait R29.6 Repeated falls R41.82 Altered mental status, unspecified Office Visit 10/12/2017 [facility] Ezra S22.070A Wedge compression 2:13p Assoc,usama [place]aver[place] fracture of Hospitalists T9-T10 vertebra, init S22.080A Wedge compression fracture of T11-T12 vertebra, init E11.9 Type 2 diabetes mellitus without complications G89.29 Other chronic pain E03.9 Hypothyroidism, unspecified I10 Essential (primary) hypertension Office Visit 10/11/2017 2:12p [facility] Ezra R29.6 Repeated falls Assoc,usama Taveras [place] Hospitalists R41.0 Disorientation, unspecified S22.070A Wedge compression fracture of T9-T10 vertebra, init S22.080A Wedge compression fracture of T11-T12 vertebra, init Office Visit 08/29/2017 9:30a [facility] Junie Villar I25.10 Athscl heart Of [facility] Eliezer, N.P. disease of [place] coronary artery w/o ang pctrs I73.9 Peripheral vascular disease, unspecified I35.0 Nonrheumatic aortic (valve) stenosis R06.02 Shortness of breath Office Visit 06/27/2017 12:06p [facility] Garland F03.90 Unspecified Assoc,usama Woodson M.D. dementia without Hospitalists behavioral disturbance I10 Essential (primary) hypertension J44.9 Chronic obstructive pulmonary disease, unspecified W19.xxxA Unspecified fall, initial encounter Office Visit 06/26/2017 7:00a [facility] Jaleesa De La Vega, R29.6 Repeated falls G89.29 Other chronic pain Z79.899 Other skilled nursing (current) drug therapy Office Visit 06/25/2017 [facility] Arben F03.90 Unspecified 12:03p Assoc,usama [place]wood NIonP. dementia without Hospitalists behavioral disturbance I10 Essential (primary) hypertension J44.9 Chronic obstructive pulmonary disease, unspecified W19.xxxA Unspecified fall, initial encounter Office Visit 06/25/2017 7:00a Neurosurgery Vassilios R53.1 Weakness Services Of Isabelle Pelayo MD M79.604 Pain in right leg Office Visit 12/19/2016 2:45p [facility] Haylee Santiago, I25.10 Athscl heart Of Isabelle Crisostomo disease of [place] coronary artery w/o ang pctrs R10.13 Epigastric pain I73.9 Peripheral vascular disease, unspecified R06.02 Shortness of breath I35.0 Nonrheumatic aortic (valve) stenosis I34.0 Nonrheumatic mitral (valve) insufficiency I34.2 Nonrheumatic mitral (valve) stenosis I36.1 Nonrheumatic tricuspid (valve) insufficiency I10 Essential (primary) hypertension Office Visit 09/14/2016 1:00p [facility] Haylee Santiago, 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 I71.4 Abdominal aortic aneurysm, without rupture I73.9 Peripheral vascular disease, unspecified E78.2 Mixed hyperlipidemia Z72.0 Tobacco use I25.10 Athscl heart disease of [place] coronary artery w/o ang pctrs R42 Dizziness and giddiness R01.1 Cardiac murmur, unspecified Office 07/26/2016 Neurohospitalist Hieu R26.89 Other Visit 1:45p Clinic MD Shruti abnormalities of gait and mobility F01.50 Vascular dementia without behavioral disturbance R29.6 Repeated falls Office 05/11/2016 Neurohospitalist Hieu G62.9 Polyneuropathy, Visit 11:30a Chantel Bahena MD unspecified R90.82 White matter disease, unspecified R26.89 Other abnormalities of gait and mobility F01.50 Vascular dementia without behavioral disturbance Office 01/25/2016 Neurohospitalist Hieu G62.9 Polyneuropathy, Visit 9:00a Clinic MD Shruti unspecified R26.89 Other abnormalities of gait and mobility R29.6 Repeated falls Office Visit 06/15/2015 [place] Hieu Bahena, G62.9 Polyneuropathy, 10:00a Neurologic unspecified Services Of [facility] M26.60 Temporomandibular joint disorder, unspecified R90.82 White matter disease, unspecified R26.89 Other abnormalities of gait and mobility Office Visit 06/02/2015 2:45p [facility] Of Haylee Santiago M.D. R63.0 Anorexia [employer] Field Coordinator I25.10 Athscl heart disease of [place] coronary artery w/o ang pctrs I10 Essential (primary) hypertension Office Visit 05/23/2015 Neurosurgery Andrae Lama M80.88xS Oth osteopor w 1:40p Services Of Isabelle Valdovinos M.D. 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 Atherosclerosis [employer] Field Coordinator [place] 272.4 Hyperlipidemia Other Unspec 401.1 Hypertension Benign 729.1 Myalgia & Myositis Unspec Office Visit 03/08/2014 3:45p [facility] Haylee Santiago, 786.50 Pain Chest Of Isabelle Cantu.Lorrie Unspec 272.4 Hyperlipidemia Other Unspec 401.9 Hypertension Unspec 492.8 Emphysema Other 443.9 Peripheral Vascular Disease Unspec Office Visit 12/29/2013 10:57a [facility] Chela Griffith, 786.50 Pain Chest Assoc,usama Crisostomo Unspec Hospitalists 272.4 Hyperlipidemia Other Unspec 250.00 Diabetes Mellitus W/O Compl Type II Or Unspec Controlled 486 Pneumonia Organism Unspec Office Visit 12/29/2013 3:31p [facility] Of Brian Andrew 786.50 Pain Chest Isabelle Aviles M.D. Unspec Office Visit 12/28/2013 10:57a [facility] Елена Oliva, 786.50 Pain Chest Assoc,pc DO Unspec Hospitalists 272.4 Hyperlipidemia Other Unspec 250.00 Diabetes Mellitus W/O Compl Type II Or Unspec Controlled 401.9 Hypertension Unspec Office Visit 01/13/2013 10:35a [facility] Lorna Newton, 577.0 Pancreatitis Acute Assoc,pc N.P. Hospitalists 250.00 Diabetes Mellitus W/O Compl Type II Or Unspec Controlled 492.8 Emphysema Other Office Visit 01/12/2013 10:35a [facility] Lorna Newton, 577.0 Pancreatitis Acute Assoc,pc N.P. Hospitalists 250.00 Diabetes Mellitus W/O Compl Type II Or Unspec Controlled 492.8 Emphysema Other Office Visit 01/11/2013 10:34a [facility] Lorna Newton, 577.0 Pancreatitis Acute Assoc,pc N.P. Hospitalists 250.00 Diabetes Mellitus W/O Compl Type II Or Unspec Controlled 492.8 Emphysema Other Office Visit 01/10/2013 [facility] Enrique Andrew 577.0 Pancreatitis 10:27a Assoc,pc [place], M.D. 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 at [facility] [place] [facility]05/02/2018 - Haylee Santiago M.D.J30.9 Allergic rhinitis, qiramoshudeR03 CoughNew Medication:Cozaar 25 mg - 1 by mouth every dayComments:Many potential reasons: post nasal drip, smoking, heart and lung issues and more.Continue to discusswith your primary MD.Recommendations:Lisinopril can cause coughing in some, we will try changing to cozaar and seeing if this helps. STOP LISINPRIL REPLACE with Cozaar.I25.10 Atherosclerotic heart disease of [place] coronary artery withFollow up:Please change primary provider [...]
[2018-06-19 00:13] LABS: ABS Basophils 0.1 10^3/ul (0-0.2); ABS Eosinophils 0.3 10^3/ul (0-0.6); ABS Lymphocytes 3.3 10^3/ul (1.0-4.8); ABS Monocytes 0.7 10^3/ul (0-0.8); ABS Neutrophils 4.8 10^3/ul (1.5-7.7); ABS Nucleated RBC 0 10^3/ul; Eosinophil % 3.2 %; Hematocrit 41 % (33-41); Hemoglobin 13.6 g/dL (12.0-16.0); Lymphocyte % 36.2 %; Mean Corpuscular HGB Conc 33 g/dL (31-36); Mean Corpuscular Hemoglobin 30 pg (27-31); Mean Corpuscular Volume 91 fL (80-97); Nucleated Red Blood Cells % 0; Platelet Count 265 10^3/uL (150-450); Red Blood Count 4.51 10^6 /uL (3.70-4.87); Red Cell Distribution Width 15 % (10.5-15); White Blood Count 9.2 10^3/uL (3.5-10.8)
[2018-06-19 00:29] LABS: Albumin 3.9 g/dL (3.2-5.2); Albumin/Globulin Ratio 1.3 (1-3); BUN/Creatinine Ratio 24.3 (8-20); Calcium 9.6 mg/dL (8.6-10.3); EGFR African American 98.2 (>60); EGFR Non-African American 81.1 (>60); Globulin 3.1 g/dL (2-4); Potassium 3.7 mmol/L (3.5-5.0); Total Bilirubin 0.3 mg/dL (0.2-1.0)
--- NOTE | 2018-06-19 00:31 | ED ---
Dizziness - HPI Summary HPI Summary: This patient is a 78 year old F presenting to ED with a chief complaint of intermittent dizziness (light-headed), L arm pain, and nausea since 1800 on 06/18. Her friend brought her to the ED and she lives with her son at home. The patient rates the pain 7/10 in severity. Symptoms aggravated by ambulation. Symptoms alleviated by rest. Patient denies vomiting. PMHx of HTN and heart murmur. Denies hx stents. She had an echo done with Dr. Santiago. Patient is a smoker. - History Of Current Complaint Chief Complaint: EDDizziness Stated Complaint: DIZZY, LEFT ARM HURTS, BAD HEART PER PT Time Seen by Provider: 06/19/18 00:05 Hx Obtained From: Patient Onset/Duration: Resolved Timing: Intermittent Episode Lasting Severity Initially: Moderate Severity Currently: Moderate - 7/10 Character: Lightheaded, Dizzy Aggravating Factor(s): Other - ambulation Alleviating Factor(s): Rest Associated Signs And Symptoms: Positive: Nausea, Other: - L arm pain. Negative : Vomiting - Allergies/Home Medications Allergies/Adverse Reactions: Allergies Allergy/AdvReac Type Severity Reaction Status Date / Time oxycodone [From OxyContin] Allergy Altered Verified 06/18/18 21:11 Mental Status PMH/Surg Hx/FS Hx/Imm Hx Endocrine/Hematology History: Reports: Hx Diabetes - type 2 dm, Hx Thyroid Disease - hypothyroid Denies: Hx Systemic Lupus Erythematosus Cardiovascular History: Reports: Hx Aneurysm - AAA, Hx Angina, Hx Coronary Artery Disease, Hx Hypercholesterolemia, Hx Hypertension, Hx Myocardial Infarction, Hx Rheumatic Fever Denies: Hx Congestive Heart Failure, Hx Pacemaker/ICD Comment Only: Other Cardiovascular Problems/Disorders - heart murmer since 16 years old Respiratory History: Reports: Hx Chronic Obstructive Pulmonary Disease (COPD), Hx Seasonal Allergies Denies: Hx Asthma, Other Respiratory Problems/Disorders GI History: Reports: Hx Gastroesophageal Reflux Disease, Hx Hiatal Hernia, Other GI Disorders - hiatal hernia Denies: Hx Ulcer History: Reports: Hx Renal Disease - hx of cyst removal, Other Problems/ Disorders - cysts removed from kidney Denies: Hx Dialysis Musculoskeletal History: Reports: Hx Arthritis - BILATERAL KNEES, BACK, BILATERAL HANDS, Hx Back Problems, Hx Osteoporosis Denies: Hx Rheumatoid Arthritis Sensory History: Denies: Hx Contacts or Glasses, Hx Hearing Aid Opthamlomology History: Denies: Hx Contacts or Glasses Neurological History: Reports: Hx Dementia, Hx Headaches, Hx Migraine, Hx Seizures, Other Neuro Impairments/Disorders - COMPRESSION FX T9,T10,T11 AND L1 Psychiatric History: Reports: Hx Anxiety, Hx Depression Denies: Hx Panic Disorder, Hx Substance Abuse - Cancer History Cancer Type, Location and Year: MELANOMA Hx Chemotherapy: No Hx Radiation Therapy: No Hx Palliative Cancer Treatment: No - Surgical History Surgery Procedure, Year, and Place: CATARACTS; PARTIAL THYROIDECTOMY; PAVAN; HYSTERECTOMY; T&A; APPENDECTOMY; CYST REMOVED FROM KIDNEY; BACK SURGERY; MELANOMA REMOVED FROM LEFT ARM; NASAL SURGERY Hx Anesthesia Reactions: No - Immunization History Date of Tetanus Vaccine: Unk Date of Influenza Vaccine: 01/09/13 Infectious Disease History: No Infectious Disease History: Reports: Hx Shingles Denies: Hx Hepatitis, Hx Human Immunodeficiency Virus (HIV), History Other Infectious Disease, Traveled Outside the [place] in Last 30 Days - Family History Known Family History: Positive: Unknown, Cardiac Disease - CHF, Other - CANCER - Social History Alcohol Use: None Substance Use Type: Reports: None Hx Tobacco Use: Yes Smoking Status (MU): Heavy Every Day Tobacco Smoker Type: Cigarettes Amount Used/How Often: 1/2 PPD Length of Time of Smoking/Using Tobacco: 60 years Have You Smoked in the Last Year: Yes Review of Systems Positive: Nausea. Negative: Vomiting Positive: Other - L arm pain Neurological: Other - intermittent dizziness (light-headed) All Other Systems Reviewed And Are Negative: Yes Physical Exam - Summary Physical Exam Summary: VITAL SIGNS: Reviewed. GENERAL: Patient is a well-developed and nourished FEMALE who is lying comfortable in the stretcher. Patient is not in any acute respiratory distress. HEAD AND FACE: No signs of trauma. No ecchymosis, hematomas or skull depressions. No sinus tenderness. EYES: PERRLA, EOMI x 2, No injected conjunctiva, no nystagmus. EARS: Hearing grossly intact. Ear canals and tympanic membranes are within normal limits. MOUTH: Oropharynx within normal limits. NECK: Supple, trachea is midline, no adenopathy, no JVD, no carotid bruit, no c- spine tenderness, neck with full ROM. CHEST: Symmetric, no tenderness at palpation LUNGS: Clear to auscultation bilaterally. No wheezing or crackles. CVS: Regular rate and rhythm, S1 and S2 present, no gallops appreciated. Systolic murmur 2/6 over the base. ABDOMEN: Soft, non-tender. No signs of distention. No rebound no guarding, and no masses palpated. Bowel sounds are normal. EXTREMITIES: FROM in all major joints, no edema, no cyanosis or clubbing. NEURO: Alert and oriented x 3. No acute neurological deficits. Speech is normal and follows commands. SKIN: Dry and warm GCS: 15 Triage Information Reviewed: Yes Vital Signs On Initial Exam: Initial Vitals Temp Pulse Resp BP Pulse Ox 98.8 F 80 16 192/103 93 06/18/18 21:09 06/18/18 21:09 06/18/18 21:09 06/18/18 21:09 06/18/18 21:09 Vital Signs Reviewed: Yes Diagnostics - Vital Signs Vital Signs Temp Pulse Resp BP Pulse Ox 06/18/18 21:09 98.8 F 80 16 192/103 93 - Laboratory Lab Results: Lab Results 06/19/18 Range/Units 00:06 WBC 9.2 (3.5-10.8) 10^3/uL RBC 4.51 (3.70-4.87) 10^6 /uL Hgb 13.6 (12.0-16.0) g/dL Hct 41 (33-41) % MCV 91 (80-97) fL MCH 30 (27-31) pg MCHC 33 (31-36) g/dL RDW 15 (10.5-15) % Plt Count 265 (150-450) 10^3/uL MPV 8.0 (7.4-10.4) fL Neut % (Auto) 51.8 % Lymph % (Auto) 36.2 % [place] % (Auto) 7.4 % Eos % (Auto) 3.2 % Baso % (Auto) 1.4 % Absolute Neuts (auto) 4.8 (1.5-7.7) 10^3/ul Absolute Lymphs (auto) 3.3 (1.0-4.8) 10^3/ul Absolute Monos (auto) 0.7 (0-0.8) 10^3/ul Absolute Eos (auto) 0.3 (0-0.6) 10^3/ul Absolute Basos (auto) 0.1 (0-0.2) 10^3/ul Absolute Nucleated RBC 0 10^3/ul Nucleated RBC % 0 Result Diagrams: 06/19/18 00:06 06/19/18 00:06 Lab Statement: Any lab studies that have been ordered have been reviewed, and results considered in the medical decision making process. - Radiology CXR Radiology Interpretation Completed By: ED Physician Summary of Radiographic Findings: No acute process. Pending radiologist official report. - CT Brain CT CT Interpretation Completed By: Radiologist Summary of CT Findings: No acute intracranial abnormality. ED physician has reviewed this report. - EKG 2351 Cardiac Rate: NL - 71 BPM EKG Rhythm: Sinus Rhythm Summary of EKG Findings: Normal axis. Normal interval. No ischemic changes. Re-Evaluation - Re-Evaluation 1st re-eval Re-Evaluation Time: 02:17 Change: Improved Comment: The pt was ambulated around the ER. She states she is usually wobbly on her feet but was walking better than she usually is, and that she has not "walked this well in a long time." She ambulated without any dizziness. Dizzy Course/Dx - Course Assessment/Plan: This patient is a 78 year old F presenting to ED with a chief complaint of intermittent dizziness (light-headed), L arm pain, and nausea since 1800 on 06/18/2018. EKG done at 2351 reveals NSR at 71 BPM and normal axis , normal interval, and no ischemic changes. Chest x-ray shows no acute process. Brain CT shows no acute intracranial abnormality. The pt will be sent home with dx including dizziness and hypertension, and a recommendation to increase her lisinopril frmo 5mg to 10mg. - Diagnoses Provider Diagnoses: Dizziness, HTN (hypertension) Discharge - Sign-Out/Discharge Documenting (check all that apply): Patient Departure Patient Received Moderate/Deep Sedation with Procedure: No - Discharge Plan Condition: Stable Disposition: HOME Referrals: Martha Bennett MD [Primary Care Provider] - Additional Instructions: I recommend you increase the dosage of your lisinopril from 5mg to 10mg. Please take your prescribed medications as otherwise instructed. Follow up with your primary care provider within the next 2-3 days. Return to the emergency department with any new or worsening symptoms. - Attestation Statements Document Initiated by Scribe: Yes Documenting Scribe: Flaco Jason Provider For Whom Scribe is Documenting (Include Credential): Sly Griffin MD Scribe Attestation: I, Flaco Jason, scribed for Sly Griffin MD on 06/19/18 at 0316. Status of Scribe Document: Ready
[2018-06-19] MEDS ORDERED: Meclizine TAB* 12.5 MG PO ONE (00:52)
[2018-06-19] MEDS ORDERED: cloNIDine TAB* 0.1 MG PO ONE ×2 (00:53→02:28)
[2018-06-19] MEDS ORDERED: Nitro 2% OINT* (Nitroglycerin) 1 INCH/PAK PAK TOPICAL ONE (02:27)
[2018-06-19 03:21] VITALS: BP 158/81
== END 2018-06-19 03:41 | disposition home or self-care (01) ==
LOC: ED 20:58
DX: R42 Dizziness and giddiness (principal); I10 Essential (primary) hypertension; R11.0 Nausea; M79.602 Pain in left arm; E11.9 Type 2 diabetes mellitus without complications; Z87.891 Personal history of nicotine dependence; I25.10 Atherosclerotic heart disease of native coronary artery without angina pectoris; F17.210 Nicotine dependence, cigarettes, uncomplicated
CPT/HCPCS: 36415; 70450; 71045; 80053; 83605; 84484; 85025; 93005; 99283; A9270-GY

== ENCOUNTER 2018-06-23 15:26 | Emergency (ER) | payer MEDICARE, MEDICAID ==
[2018-06-23 16:32] LABS: ABS Basophils 0 10^3/ul (0-0.2); ABS Eosinophils 0.2 10^3/ul (0-0.6); ABS Lymphocytes 2.5 10^3/ul (1.0-4.8); ABS Monocytes 0.6 10^3/ul (0-0.8); ABS Neutrophils 4.2 10^3/ul (1.5-7.7); ABS Nucleated RBC 0 10^3/ul; Eosinophil % 3.3 %; Hematocrit 40 % (33-41); Hemoglobin 13.4 g/dL (12.0-16.0); Lymphocyte % 32.9 %; Mean Corpuscular HGB Conc 34 g/dL (31-36); Mean Corpuscular Hemoglobin 31 pg (27-31); Mean Corpuscular Volume 91 fL (80-97); Mean Platelet Volume 8.3 fL (7.4-10.4); Nucleated Red Blood Cells % 0.1; Platelet Count 264 10^3/uL (150-450); Red Blood Count 4.38 10^6 /uL (3.70-4.87); Red Cell Distribution Width 15 % (10.5-15); White Blood Count 7.6 10^3/uL (3.5-10.8)
[2018-06-23 16:49] LABS: Albumin 3.7 g/dL (3.2-5.2); Albumin/Globulin Ratio 1.2 (1-3); BUN/Creatinine Ratio 17.7 (8-20); Calcium 9.5 mg/dL (8.6-10.3); EGFR African American 85.4 (>60); EGFR Non-African American 70.6 (>60); Potassium 3.4 mmol/L (3.5-5.0); Total Bilirubin 0.5 mg/dL (0.2-1.0); Total Protein 6.7 g/dL (6.4-8.9); Troponin I 0.01 ng/mL (<0.04)
--- NOTE | 2018-06-23 17:07 | ED ---
HPI Cardiac - HPI Summary HPI Summary: patient is a 78-year-old female presenting to the ED with a chief complaint of more frequent falls. She has been seen 5 days ago for same. She has also been seen several times in the past 2 years for increase falls. Today, she denies any SOB or CP. Denies any headache or visual changes. She endorses back pain, however this is chronic and at her baseline. She denies any urinary symptoms. She states she feels unsteady on her feet, but denies any dizziness with sitting to standing, etc. she says she does not drink water often and is a regular smoker. Denies alcohol. - History of Current Complaint Chief Complaint: EDDizziness Stated Complaint: HYPERTENSION, FALLS PER PT Time Seen by Provider: 06/23/18 15:47 Hx Obtained From: Patient Hx Last Menstrual Period: post menopause Onset/Duration: Started Hours Ago Timing: Constant Initial Severity: Moderate Current Severity: Moderate Pain Intensity: 10 Pain Scale Used: 0-10 Numeric Chest Pain Radiates: No Aggravating Factor(s): Nothing Alleviating Factor(s): Nothing Associated Signs and Symptoms: Positive: Negative - Additional Pertinent History Primary Care Physician: SANJANA - Allergy/Home Medications Allergies/Adverse Reactions: Allergies Allergy/AdvReac Type Severity Reaction Status Date / Time oxycodone [From OxyContin] Allergy Altered Verified 06/23/18 15:40 Mental Status PMH/Surg Hx/FS Hx/Imm Hx Previously Healthy: Yes Endocrine/Hematology History: Reports: Hx Diabetes - type 2 dm, Hx Thyroid Disease - hypothyroid Denies: Hx Systemic Lupus Erythematosus Cardiovascular History: Reports: Hx Aneurysm - AAA, Hx Angina, Hx Coronary Artery Disease, Hx Hypercholesterolemia, Hx Hypertension, Hx Myocardial Infarction, Hx Rheumatic Fever Denies: Hx Congestive Heart Failure, Hx Pacemaker/ICD Comment Only: Other Cardiovascular Problems/Disorders - heart murmer since 16 years old Respiratory History: Reports: Hx Chronic Obstructive Pulmonary Disease (COPD), Hx Seasonal Allergies Denies: Hx Asthma, Other Respiratory Problems/Disorders GI History: Reports: Hx Gastroesophageal Reflux Disease, Hx Hiatal Hernia, Other GI Disorders - hiatal hernia Denies: Hx Ulcer History: Reports: Hx Renal Disease - hx of cyst removal, Other Problems/ Disorders - cysts removed from kidney Denies: Hx Dialysis Musculoskeletal History: Reports: Hx Arthritis - BILATERAL KNEES, BACK, BILATERAL HANDS, Hx Back Problems, Hx Osteoporosis Denies: Hx Rheumatoid Arthritis Sensory History: Denies: Hx Contacts or Glasses, Hx Hearing Aid Opthamlomology History: Denies: Hx Contacts or Glasses Neurological History: Reports: Hx Dementia, Hx Headaches, Hx Migraine, Hx Seizures, Other Neuro Impairments/Disorders - COMPRESSION FX T9,T10,T11 AND L1 Psychiatric History: Reports: Hx Anxiety, Hx Depression Denies: Hx Panic Disorder, Hx Substance Abuse - Cancer History Cancer Type, Location and Year: [facility] Hx Chemotherapy: No Hx Radiation Therapy: No Hx Palliative Cancer Treatment: No - Surgical History Surgery Procedure, Year, and Place: CATARACTS; PARTIAL THYROIDECTOMY; PAVAN; HYSTERECTOMY; T&A; APPENDECTOMY; CYST REMOVED FROM KIDNEY; BACK SURGERY; [place] REMOVED FROM LEFT ARM; NASAL SURGERY Hx Anesthesia Reactions: No - Immunization History Date of Tetanus Vaccine: Unk Date of Influenza Vaccine: 01/09/13 Hx Pertussis Vaccination: No Immunizations Up to Date: Yes Infectious Disease History: No Infectious Disease History: Reports: Hx Shingles Denies: Hx Hepatitis, Hx Human Immunodeficiency Virus (HIV), History Other Infectious Disease, Traveled Outside the in Last 30 Days - Family History Known Family History: Positive: Unknown, Cardiac Disease - CHF, Other - CANCER - Social History Occupation: Unemployed Lives: With Family Alcohol Use: None Hx Substance Use: No Substance Use Type: Reports: None Hx Tobacco Use: Yes Smoking Status (MU): Heavy Every Day Tobacco Smoker Type: Cigarettes Amount Used/How Often: 1/2 PPD Length of Time of Smoking/Using Tobacco: 60 years Have You Smoked in the Last Year: Yes Review of Systems Positive: Fatigue. Negative: Fever Negative: Blurred Vision, Diplopia Negative: Dental Pain, Sore Throat Negative: Palpitations, Chest Pain Genitourinary: Negative Positive: no symptoms reported, see HPI Negative: Arthralgia, Myalgia Skin: Negative Neurological: Negative, Other - falls All Other Systems Reviewed And Are Negative: Yes Physical Exam Triage Information Reviewed: Yes Vital Signs On Initial Exam: Initial Vitals Temp Pulse Resp BP Pulse Ox 97.5 F 87 20 141/78 94 06/23/18 15:37 06/23/18 15:37 06/23/18 15:37 06/23/18 15:37 06/23/18 15:37 Vital Signs Reviewed: Yes Appearance: Positive: Well-Appearing, Well-Nourished Skin: Positive: Warm, Skin Color Reflects Adequate Perfusion Head/Face: Positive: Normal Head/Face Inspection Eyes: Positive: EOMI, Conjunctiva Clear Neck: Positive: Supple, No Lymphadenopathy Respiratory/Lung Sounds: Positive: Clear to Auscultation, Breath Sounds Present Cardiovascular: Positive: RRR, Pulses are Symmetrical in both Upper and Lower Extremities Musculoskeletal: Positive: Normal, Strength/ROM Intact Neurological: Positive: Speech Normal Psychiatric: Positive: Affect/Mood Appropriate AVPU Assessment: Alert Diagnostics - Vital Signs Vital Signs Temp Pulse Resp BP Pulse Ox 06/23/18 15:37 97.5 F 87 20 141/78 94 - Laboratory Lab Results: Lab Results 06/23/18 06/23/18 Range/Units 16:10 16:10 WBC 7.6 (3.5-10.8) 10^3/uL RBC 4.38 (3.70-4.87) 10^6 /uL Hgb 13.4 (12.0-16.0) g/dL Hct 40 (33-41) % MCV 91 (80-97) fL MCH 31 (27-31) pg MCHC 34 (31-36) g/dL RDW 15 (10.5-15) % Plt Count 264 (150-450) 10^3/uL MPV 8.3 (7.4-10.4) fL Neut % (Auto) 55.2 % Lymph % (Auto) 32.9 % [place] % (Auto) 8.0 % Eos % (Auto) 3.3 % Baso % (Auto) 0.6 % Absolute Neuts (auto) 4.2 (1.5-7.7) 10^3/ul Absolute Lymphs (auto) 2.5 (1.0-4.8) 10^3/ul Absolute Monos (auto) 0.6 (0-0.8) 10^3/ul Absolute Eos (auto) 0.2 (0-0.6) 10^3/ul Absolute Basos (auto) 0 (0-0.2) 10^3/ul Absolute Nucleated RBC 0 10^3/ul Nucleated RBC % 0.1 Sodium 138 (135-145) mmol/L Potassium 3.4 L (3.5-5.0) mmol/L Chloride 105 (101-111) mmol/L Carbon Dioxide 28 (22-32) mmol/L Anion Gap 5 (2-11) mmol/L BUN 14 (6-24) mg/dL Creatinine 0.79 (0.51-0.95) mg/dL Est GFR ( Amer) 85.4 (>60) Est GFR (Non-Af Amer) 70.6 (>60) BUN/Creatinine Ratio 17.7 (8-20) Glucose 160 H (70-100) mg/dL Calcium 9.5 (8.6-10.3) mg/dL Total Bilirubin 0.50 (0.2-1.0) mg/dL AST 24 (13-39) U/L ALT 15 (7-52) U/L Alkaline Phosphatase 154 H (34-104) U/L Troponin I 0.01 (<0.04) ng/mL Total Protein 6.7 (6.4-8.9) g/dL Albumin 3.7 (3.2-5.2) g/dL Globulin 3.0 (2-4) g/dL Albumin/Globulin Ratio 1.2 (1-3) Result Diagrams: 06/23/18 16:10 06/23/18 16:10 Lab Statement: Any lab studies that have been ordered have been reviewed, and results considered in the medical decision making process. Disposition - Course Course Of Treatment: During the patient's course of treatment, she is evaluated for frequent falls. On physical examination, patient appears well, nontoxic appearing and drinking a soda. She states she has been having unsteady gait times several years. She has been worked up for this in the past most recently [address] brain, chest x-ray, urine, labs obtained, all within normal limits 5 days ago. Today, labs obtained all which are WNL. UA obtained. Pending UA. Walks patient, patient appears unsteady on her feet, however is able to walk to the restroom and back. She states she does live with her son and has help at home. I have encouraged her very close follow-up with her PCP, she has requested a new PCP and I have given her the [facility] follow- up. She states she has help at home at this time and will follow-up with [facility] for further evaluation of her frequent falls. - Diagnoses Provider Diagnoses: Falls, Fatigue Discharge - Sign-Out/Discharge Documenting (check all that apply): Patient Departure Patient Received Moderate/Deep Sedation with Procedure: No - Discharge Plan Condition: Stable Disposition: HOME Patient Education Materials: Fall Prevention (ED) Referrals: [facility] [Outside] Martha Bennett MD [Primary Care Provider] - Additional Instructions: Please follow up with our [facility] group to further evaluate your symptoms Get up very slowly from sitting to standing If you develop any worsening dizziness, return to the ED or follow-up with your new PCP Drink plenty of fluids Stop smoking - Billing Disposition and Condition Condition: STABLE Disposition: Home
[2018-06-23 17:25] VITALS: BP 163/80
[2018-06-23 17:34] LABS: Urine Appearance Cloudy; Urine Bacteria Absent (Absent); Urine Bilirubin Negative (Negative); Urine Blood 1+ (Negative); Urine Color Amber; Urine Glucose Negative (Negative); Urine Ketones Negative (Negative); Urine Nitrite Negative (Negative); Urine Protein Negative (Negative); Urine Red Blood Cell Absent (Absent); Urine Specific Gravity 1.017 (1.010-1.030); Urine Squamous Epithelial Cell Present (Absent); Urine Urobilinogen Negative (Negative); Urine White Blood Cell 2+(11-20/hpf) (Absent)
== END 2018-06-23 17:15 | disposition home or self-care (01) ==
LOC: ED 15:26
DX: R53.83 Other fatigue (principal); Z91.81 History of falling; R94.31 Abnormal electrocardiogram [ECG] [EKG]; I10 Essential (primary) hypertension; I25.2 Old myocardial infarction; I25.10 Atherosclerotic heart disease of native coronary artery without angina pectoris; E11.9 Type 2 diabetes mellitus without complications; E03.9 Hypothyroidism, unspecified; Z88.5 Allergy status to narcotic agent; E78.00 Pure hypercholesterolemia, unspecified; J44.9 Chronic obstructive pulmonary disease, unspecified; K21.9 Gastro-esophageal reflux disease without esophagitis; M13.862 Other specified arthritis, left knee; M13.861 Other specified arthritis, right knee; M46.90 Unspecified inflammatory spondylopathy, site unspecified; M13.842 Other specified arthritis, left hand; M13.841 Other specified arthritis, right hand; M81.0 Age-related osteoporosis without current pathological fracture; F03.90 Unspecified dementia, unspecified severity, without behavioral disturbance, psychotic disturbance, mood disturbance, and anxiety; F41.9 Anxiety disorder, unspecified; F32.9 Major depressive disorder, single episode, unspecified; F17.210 Nicotine dependence, cigarettes, uncomplicated; Z85.820 Personal history of malignant melanoma of skin
CPT/HCPCS: 36415; 80053; 81003; 81015; 84484; 85025; 87086; 93005; 99282

== ENCOUNTER 2018-08-12 16:22 | Emergency (ER) | payer MEDICARE, MEDICAID ==
--- NOTE | 2018-08-12 18:20 | ED ---
Back Pain - HPI Summary HPI Summary: Patient complains of chronic upper back pain x yrs and new onset right hip pain 1 month. Right hip pain started with a fall 1 month ago when she was trying to sit down on a couch and hit the side arm of sofa with the right side of her bottom. Patient complains mostly that her PCP has not given her enough pain medication for chronic back pain. Patient states she has been prescribed oxycodone 20 mg twice a day with one hydrocodone 5/325 daily for breakthrough pain. Patient states it is not controlling her pain. Patient states chronic pain has been evaluated by orthopedics and by pain management and everyone is telling her they can do nothing. Patient has not been evaluated for new right hip pain since fall. Right hip pain occurs with weightbearing, and radiates down anterior right thigh with weightbearing. Patient is ambulatory since fall. Patient denies head injury, CORCORAN, vision change, N/V, fever, cough, sore throat, CP, SOB, N/V/D, abdominal pain, change in urine, change in BM. - History of Current Complaint Chief Complaint: EDHipPelvisInjury Stated Complaint: RT HIP AND LEG PAIN PER PT Time Seen by Provider: 08/12/18 16:52 Hx Obtained From: Patient Hx Last Menstrual Period: post menopause Onset/Duration: Gradual Onset Onset/Duration: Started Weeks Ago Timing: Intermittent Severity Initially: Severe Severity Currently: Severe Pain Intensity: 9 Pain Scale Used: 0-10 Numeric Character: Aching Aggravating Symptom(s): Movement, Walking Alleviating Symptom(s): Rest Associated Signs And Symptoms: Positive: Pain with Weight Bearing - Allergies/Home Medications Allergies/Adverse Reactions: Allergies Allergy/AdvReac Type Severity Reaction Status Date / Time oxycodone [From OxyContin] Allergy Altered Verified 08/12/18 16:30 Mental Status Home Medications: Home Medications Baclofen TAB* [Lioresal TAB*] 5 mg PO DAILY PRN 08/12/18 [History Confirmed ] Diazepam TAB(*) [Valium TAB(*)] 5 mg PO BID PRN 08/12/18 [History Confirmed ] HYDROcodone/ACETAMIN 5-325 MG* [[place] 5-325 TAB*] 1 tab PO BID PRN 08/12/18 [ History Confirmed 08/12/18] Levothyroxine TAB* [Synthroid TAB*] 75 mcg PO DAILY 08/12/18 [History Confirmed 08/12/18] Losartan TAB* [Cozaar TAB*] 50 mg PO DAILY 08/12/18 [History Confirmed 08/12/18] Oxycodone HCl [Oxycodone HCl ER] 20 mg PO BID PRN 08/12/18 [History Confirmed ] Quinapril (NF) [Accupril (NF)] 10 mg PO DAILY 08/12/18 [History Confirmed ] Rosuvastatin (NF) [Crestor (NF)] 5 mg PO DAILY 08/12/18 [History Confirmed 08/12] celeCOXIB CAP* [CeleBREX CAP*] 100 mg PO BID PRN 08/12/18 [History Confirmed ] traZODone TAB* [Desyrel TAB*] 100 mg PO BEDTIME 08/12/18 [History Confirmed ] PMH/Surg Hx/FS Hx/Imm Hx Endocrine/Hematology History: Reports: Hx Diabetes - type 2 dm, Hx Thyroid Disease - hypothyroid Denies: Hx Systemic Lupus Erythematosus Cardiovascular History: Reports: Hx Aneurysm - AAA, Hx Angina, Hx Coronary Artery Disease, Hx Hypercholesterolemia, Hx Hypertension, Hx Myocardial Infarction, Hx Rheumatic Fever Denies: Hx Congestive Heart Failure, Hx Pacemaker/ICD Comment Only: Other Cardiovascular Problems/Disorders - heart murmer since 16 years old Respiratory History: Reports: Hx Chronic Obstructive Pulmonary Disease (COPD), Hx Seasonal Allergies Denies: Hx Asthma, Other Respiratory Problems/Disorders GI History: Reports: Hx Gastroesophageal Reflux Disease, Hx Hiatal Hernia, Other GI Disorders - hiatal hernia Denies: Hx Ulcer History: Reports: Hx Renal Disease - hx of cyst removal, Other Problems/ Disorders - cysts removed from kidney Denies: Hx Dialysis Musculoskeletal History: Reports: Hx Arthritis - BILATERAL KNEES, BACK, BILATERAL HANDS, Hx Back Problems, Hx Osteoporosis Denies: Hx Rheumatoid Arthritis Sensory History: Denies: Hx Contacts or Glasses, Hx Hearing Aid Opthamlomology History: Denies: Hx Contacts or Glasses Neurological History: Reports: Hx Dementia, Hx Headaches, Hx Migraine, Hx Seizures, Other Neuro Impairments/Disorders - COMPRESSION FX T9,T10,T11 AND L1 Psychiatric History: Reports: Hx Anxiety, Hx Depression Denies: Hx Panic Disorder, Hx Substance Abuse - Cancer History Cancer Type, Location and Year: MELANOMA Hx Chemotherapy: No Hx Radiation Therapy: No Hx Palliative Cancer Treatment: No - Surgical History Surgery Procedure, Year, and Place: CATARACTS; PARTIAL THYROIDECTOMY; PAVAN; HYSTERECTOMY; T&A; APPENDECTOMY; CYST REMOVED FROM KIDNEY; BACK SURGERY; MELANOMA REMOVED FROM LEFT ARM; NASAL SURGERY Hx Anesthesia Reactions: No - Immunization History Date of Tetanus Vaccine: Unk Date of Influenza Vaccine: 01/09/13 Infectious Disease History: No Infectious Disease History: Reports: Hx Shingles Denies: Hx Hepatitis, Hx Human Immunodeficiency Virus (HIV), History Other Infectious Disease, Traveled Outside the [place] in Last 30 Days - Family History Known Family History: Positive: Unknown, Cardiac Disease - CHF, Other - CANCER - Social History Alcohol Use: None Hx Substance Use: No Substance Use Type: Reports: None Hx Tobacco Use: Yes Smoking Status (MU): Heavy Every Day Tobacco Smoker Type: Cigarettes Amount Used/How Often: 1/2 PPD Length of Time of Smoking/Using Tobacco: 60 years Have You Smoked in the Last Year: Yes Review of Systems Constitutional: Negative Eyes: Negative ENT: Negative Cardiovascular: Negative Respiratory: Negative Gastrointestinal: Negative Genitourinary: Negative Musculoskeletal: Other Skin: Negative Neurological: Negative Psychological: Normal All Other Systems Reviewed And Are Negative: Yes Physical Exam - Summary Physical Exam Summary: No ecchymosis, erythema, swelling, deformity noted to neck, back, right hip, right lower extremity. PMS intact distally on right lower extremity. Patient able to flex and extend right hip and right knee without obvious indication of pain. Patient states right hip pain with palpation, but gives no indication of pain during palpation and she is talking and distracted. Triage Information Reviewed: Yes Vital Signs On Initial Exam: Initial Vitals Temp Pulse Resp BP Pulse Ox 98.6 F 75 18 193/84 96 08/12/18 16:24 08/12/18 16:24 08/12/18 16:24 08/12/18 16:24 08/12/18 16:24 Vital Signs Reviewed: Yes Appearance: Positive: Well-Appearing Skin: Positive: Warm Head/Face: Positive: Normal Head/Face Inspection Eyes: Positive: Normal Neck: Positive: Supple Respiratory/Lung Sounds: Positive: Clear to Auscultation Cardiovascular: Positive: Normal Abdomen Description: Positive: Nontender Musculoskeletal: Positive: Normal Neurological: Positive: Normal Psychiatric: Positive: Normal AVPU Assessment: Alert - [place] Coma Scale Best Eye Response: 4 - Spontaneous Best Motor Response: 6 - Obeys Commands Best Verbal Response: 5 - Oriented Coma Scale Total: 15 Diagnostics - Vital Signs Vital Signs Temp Pulse Resp BP Pulse Ox 08/12/18 16:56 71 94 08/12/18 16:55 71 158/80 95 08/12/18 16:24 98.6 F 75 18 193/84 96 - Laboratory Lab Statement: Any lab studies that have been ordered have been reviewed, and results considered in the medical decision making process. Back Pain Course/Dx - Course Course Of Treatment: Patient complains of chronic upper back pain x yrs and new onset right hip pain 1 month. Right hip pain started with a fall 1 month ago when she was trying to sit down on a couch and hit the side arm of sofa with the right side of her bottom. Patient complains mostly that her PCP has not given her enough pain medication for chronic back pain. Patient states she has been prescribed oxycodone 20 mg twice a day with one hydrocodone 5/325 daily for breakthrough pain. Patient states it is not controlling her pain. Patient states chronic pain has been evaluated by orthopedics and by pain management and everyone is telling her they can do nothing. Patient has not been evaluated for new right hip pain since fall. Right hip pain occurs with weightbearing, and radiates down anterior right thigh with weightbearing. Patient is ambulatory since fall. Patient denies head injury, CORCORAN, vision change , N/V, fever, cough, sore throat, CP, SOB, N/V/D, abdominal pain, change in urine, change in BM. Physical exam:No ecchymosis, erythema, swelling, deformity noted to neck, back, right hip, right lower extremity. PMS intact distally on right lower extremity. Patient able to flex and extend right hip and right knee without obvious indication of pain. Patient states right hip pain with palpation, but gives no indication of pain during palpation when she is talking and distracted. BP intermittently elevated. Patient states she is compliant with blood pressure medication. Vital signs otherwise within normal limits. X-ray negative for bony process. Patient ambulatory. Patient is driving herself home, no opiates were administered. Patient refused Tylenol and ibuprofen. Patient has existing Rx for oxycodone and hydrocodone. Patient advised to follow-up with [facility], [facility]o and pain management. pt driving. rx opfr oxy and hydro already by pcp - Diagnoses Provider Diagnoses: Fall, Chronic pain Discharge - Sign-Out/Discharge Documenting (check all that apply): Patient Departure Patient Received Moderate/Deep Sedation with Procedure: No - Discharge Plan Condition: Stable Disposition: HOME Patient Education Materials: Fall Prevention for Older Adults (ED), Chronic Back Pain (DC) Referrals: Martha Bennett MD [Primary Care Provider] - Rex Burger MD [Medical Doctor] - Josh Morrow MD [Medical Doctor] - Additional Instructions: Follow-up with orthopedics Dr Burger for further evaluation of chronic back pain and right hip pain. Follow-up with pain management Dr Morrow for further for pain control. Return to the ED for any new or worsening symptoms. - Billing Disposition and Condition Condition: STABLE Disposition: Home
[2018-08-12 18:46] VITALS: BP 191/79
== END 2018-08-12 18:46 | disposition home or self-care (01) ==
LOC: ED 16:22
DX: G89.29 Other chronic pain (principal); M54.9 Dorsalgia, unspecified; M25.551 Pain in right hip; F41.9 Anxiety disorder, unspecified; F32.9 Major depressive disorder, single episode, unspecified; F17.210 Nicotine dependence, cigarettes, uncomplicated; E11.9 Type 2 diabetes mellitus without complications; E03.9 Hypothyroidism, unspecified; K21.9 Gastro-esophageal reflux disease without esophagitis; Z88.5 Allergy status to narcotic agent
CPT/HCPCS: 99283

== ENCOUNTER 2018-08-19 13:27 | Emergency (ER) | payer MEDICARE, MEDICAID ==
--- NOTE | 2018-08-19 13:59 | ED ---
Altered Mental Status - HPI Summary HPI Summary: This patient is a 78 year old female presenting to [facility] with a chief complaint of general weakness since this morning. The patient states she has been sleepy. She fell asleep in the middle of giving the story. The patient has a Hx of taking more medication than recommended. She reports dizziness. Fluticasone-Salmeterol 250-50* [Advair Diskus 250-50*] 1 puff INH BID 06/25/17 [ History Confirmed 08/19/18] Ranitidine TAB (NF) [Zantac TAB (NF)] 150 mg PO BID PRN 06/25/17 [History Confirmed 08/19/18] SUMAtriptan TAB* [Imitrex TAB*] 50 mg PO ONCE PRN MDD 100 mg 06/25/17 [History Confirmed 08/19/18] Venlafaxine EXT RELEASE CAP* [Effexor Xr CAP*] 150 mg PO DAILY 06/25/17 [ History Confirmed 08/19/18] Cholecalciferol TAB* [Vitamin D TAB*] 1,000 units PO DAILY tab 06/27/17 [Rx Confirmed 08/19/18] Albuterol 2.5MG/3ML (0.083%)* [Ventolin 2.5 MG/3 ML NEB.JORGE*] 2.5 mg INH Q6H PRN 08/23/17 [History Confirmed 08/19/18] Acetaminophen TAB* [Tylenol TAB*] 650 mg PO Q6H PRN tab 10/15/17 [Rx Confirmed 08/19/18] Divalproex TAB(*) [Depakote TAB(*)] 250 mg PO BID #60 tab. 11/22/17 [Rx Confirmed 08/19/18] Meclizine TAB* [Antivert 12.5 TAB*] 25 mg PO TID PRN #20 tab 06/19/18 [Rx Confirmed 08/19/18] Baclofen TAB* [Lioresal TAB*] 5 mg PO DAILY PRN 08/12/18 [History Confirmed ] Diazepam TAB(*) [Valium TAB(*)] 5 mg PO BID PRN 08/12/18 [History Confirmed ] HYDROcodone/ACETAMIN 5-325 MG* [[place] 5-325 TAB*] 1 tab PO BID PRN 08/12/18 [ History Confirmed 08/19/18] Levothyroxine TAB* [Synthroid TAB*] 75 mcg PO DAILY 08/12/18 [History Confirmed 08/19/18] Losartan TAB* [Cozaar TAB*] 50 mg PO DAILY 08/12/18 [History Confirmed 08/19/18] Oxycodone HCl [Oxycodone HCl ER] 20 mg PO BID PRN 08/12/18 [History Confirmed ] Quinapril (NF) [Accupril (NF)] 10 mg PO DAILY 08/12/18 [History Confirmed ] Rosuvastatin (NF) [Crestor (NF)] 5 mg PO DAILY 08/12/18 [History Confirmed 08/19] celeCOXIB CAP* [CeleBREX CAP*] 100 mg PO BID PRN 08/12/18 [History Confirmed ] traZODone TAB* [Desyrel TAB*] 100 mg PO BEDTIME 08/12/18 [History Confirmed ] - History Of Current Complaint Chief Complaint: EDGeneral Stated Complaint: WEAKNESS, DIZZY PER EMS Time Seen by Provider: 08/19/18 13:52 Hx Obtained From: Patient Hx Last Menstrual Period: post menopause Onset/Duration: Still Present Timing: Constant, Lasting Minutes Severity Initially: Mild Severity Currently: Mild - Allergies/Home Medications Allergies/Adverse Reactions: Allergies Allergy/AdvReac Type Severity Reaction Status Date / Time No Known Allergies Allergy Verified 08/19/18 13:41 PMH/Surg Hx/FS Hx/Imm Hx Endocrine/Hematology History: Reports: Hx Diabetes - type 2 dm, Hx Thyroid Disease - hypothyroid Denies: Hx Systemic Lupus Erythematosus Cardiovascular History: Reports: Hx Aneurysm - AAA, Hx Angina, Hx Coronary Artery Disease, Hx Hypercholesterolemia, Hx Hypertension, Hx Myocardial Infarction, Hx Rheumatic Fever Denies: Hx Congestive Heart Failure, Hx Pacemaker/ICD Comment Only: Other Cardiovascular Problems/Disorders - heart murmer since 16 years old Respiratory History: Reports: Hx Chronic Obstructive Pulmonary Disease (COPD), Hx Seasonal Allergies Denies: Hx Asthma, Other Respiratory Problems/Disorders GI History: Reports: Hx Gastroesophageal Reflux Disease, Hx Hiatal Hernia, Other GI Disorders - hiatal hernia Denies: Hx Ulcer History: Reports: Hx Renal Disease - hx of cyst removal, Other Problems/ Disorders - cysts removed from kidney Denies: Hx Dialysis Musculoskeletal History: Reports: Hx Arthritis - BILATERAL KNEES, BACK, BILATERAL HANDS, Hx Back Problems, Hx Osteoporosis Denies: Hx Rheumatoid Arthritis Sensory History: Denies: Hx Contacts or Glasses, Hx Hearing Aid Opthamlomology History: Denies: Hx Contacts or Glasses Neurological History: Reports: Hx Dementia, Hx Headaches, Hx Migraine, Hx Seizures, Other Neuro Impairments/Disorders - COMPRESSION FX T9,T10,T11 AND L1 Psychiatric History: Reports: Hx Anxiety, Hx Depression Denies: Hx Panic Disorder, Hx Substance Abuse - Cancer History Cancer Type, Location and Year: MELANOMA Hx Chemotherapy: No Hx Radiation Therapy: No Hx Palliative Cancer Treatment: No - Surgical History Surgery Procedure, Year, and Place: CATARACTS; PARTIAL THYROIDECTOMY; PAVAN; HYSTERECTOMY; T&A; APPENDECTOMY; CYST REMOVED FROM KIDNEY; BACK SURGERY; [place] REMOVED FROM LEFT ARM; NASAL SURGERY Hx Anesthesia Reactions: No - Immunization History Date of Tetanus Vaccine: Unk Date of Influenza Vaccine: 01/09/13 Infectious Disease History: No Infectious Disease History: Reports: Hx Shingles Denies: Hx Hepatitis, Hx Human Immunodeficiency Virus (HIV), History Other Infectious Disease, Traveled Outside the [place] in Last 30 Days - Family History Known Family History: Positive: Cardiac Disease - CHF, Other - CANCER - Social History Alcohol Use: None Hx Substance Use: No Substance Use Type: Reports: None Hx Tobacco Use: Yes Smoking Status (MU): Heavy Every Day Tobacco Smoker Type: Cigarettes Amount Used/How Often: 1/2 PPD Length of Time of Smoking/Using Tobacco: 60 years Have You Smoked in the Last Year: Yes Review of Systems Negative: Fever Neurological: Other - Dizziness Positive: Weakness All Other Systems Reviewed And Are Negative: Yes Physical Exam - Summary Physical Exam Summary: Appearance: The patient is well-nourished in no acute distress and in no acute pain. Patient fell asleep mid-sentence. Skin: The skin is warm and dry and skin color reflects adequate perfusion. HEENT: The head is normocephalic and atraumatic. The pupils are equal and reactive. Pupils are small. The conjunctivae are clear and without drainage. Nares are patent and without drainage. Mouth reveals moist mucous membranes and the throat is without erythema and exudate. The external ears are intact. The ear canals are patent and without drainage. The tympanic membranes are intact. Neck: The neck is supple with full range of motion and non-tender. There are no carotid bruits. There is no neck vein distension. Respiratory: Chest is non-tender. Lungs are clear to auscultation and breath sounds are symmetrical and equal. Cardiovascular: Heart is regular rate and rhythm. There is no murmur or rub auscultated. There is no peripheral edema and pulses are symmetrical and equal. Abdomen: The abdomen is soft and non-tender. There are normal bowel sounds heard in all four quadrants and there is no organomegaly palpated. Musculoskeletal: There is no back tenderness noted. Extremities are non-tender with full range of motion. There is good capillary refill. There is no peripheral edema or calf tenderness elicited. Neurological: Patient is alert and oriented to person, place and time. The patient has symmetrical motor strength in all four extremities. Cranial nerves are grossly intact. Deep tendon reflexes are symmetrical and equal in all four extremities. Psychiatric: The patient has an appropriate affect and does not exhibit any anxiety or depression. Triage Information Reviewed: Yes Vital Signs On Initial Exam: Initial Vitals Temp Pulse Resp BP Pulse Ox 97.7 F 65 16 178/78 92 08/19/18 13:36 08/19/18 13:36 08/19/18 13:36 08/19/18 13:36 08/19/18 13:36 Vital Signs Reviewed: Yes Diagnostics - Vital Signs Vital Signs Temp Pulse Resp BP Pulse Ox 08/19/18 13:36 97.7 F 65 16 178/78 92 - Laboratory Lab Statement: Any lab studies that have been ordered have been reviewed, and results considered in the medical decision making process. Altered Mental Statu Course/Dx - Course Course Of Treatment: Ms. Nagy has a history of overuse of her pain medications. She was very sleepy on arrival here and I allowed her to sleep until she woke up and was noted to be clinically sober. At that point she was requesting discharge home with no complaints. - Diagnoses Provider Diagnoses: Medication reaction Discharge - Sign-Out/Discharge Documenting (check all that apply): Patient Departure - Discharge Patient Received Moderate/Deep Sedation with Procedure: No - Discharge Plan Condition: Stable Disposition: HOME Patient Education Materials: Narcotic Safety (ED) Referrals: [facility] [Outside] Additional Instructions: Return to ED with any new or worsening symptoms. Follow up with your primary care provider. - Billing Disposition and Condition Condition: STABLE Disposition: Home - Attestation Statements Document Initiated by Helga: Yes Documenting Oscaribe: Rex Guy Provider For Whom Helga is Documenting (Include Credential): Monico King MD Scribwilma Attestation: Rex Bernal, scribed for Monico King MD on 08/19/18 at 2021. Scribe Documentation Reviewed: Yes Provider Attestation: The documentation as recorded by the Rex moore accurately reflects the service I personally performed and the decisions made by me, Monico King MD Status of Scribe Document: Viewed
[2018-08-19 18:40] VITALS: BP 219/72
== END 2018-08-19 18:38 | disposition home or self-care (01) ==
LOC: ED 13:27
DX: R42 Dizziness and giddiness (principal); R53.1 Weakness; T50.905A Adverse effect of unspecified drugs, medicaments and biological substances, initial encounter; Y92.9 Unspecified place or not applicable; E11.9 Type 2 diabetes mellitus without complications; E03.9 Hypothyroidism, unspecified; I10 Essential (primary) hypertension; E78.00 Pure hypercholesterolemia, unspecified; R01.1 Cardiac murmur, unspecified; K21.9 Gastro-esophageal reflux disease without esophagitis; N28.9 Disorder of kidney and ureter, unspecified; G43.909 Migraine, unspecified, not intractable, without status migrainosus; R56.9 Unspecified convulsions; F41.9 Anxiety disorder, unspecified; F32.9 Major depressive disorder, single episode, unspecified; F17.210 Nicotine dependence, cigarettes, uncomplicated
CPT/HCPCS: 99283

== ENCOUNTER → 2018-09-15 19:29 | Emergency (ER) | payer MEDICARE, MEDICAID ==
[2018-09-15 19:47] VITALS: BP 186/135
--- OUTSIDE RECORDS SUMMARY | 2018-09-15 20:16 | XMS REPORT | Continuity of Care Document ---
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 Yuri Bennett MD, PHD Primary Care Physician Unavailable Payers Date Identification Numbers Payment Provider Subscriber Policy Number: [id number] [facility] PayID: [id number] [address] [place] [address] Policy Number: [id number] Medicaid [facility] PayID: [id number] [address] [place] [address] Expires: 2017 Policy Number: [id number] [facility] PayID: [id number] [address] [place] [address] Problems Active Problems Provider Date Hyperlipidemia Yuri Bennett MD, PHD Onset: 01/07/2018 Low back pain Yuri Bennett MD, PHD Onset: 01/07/2018 Pain in thoracic spine Yuri Bennett MD, PHD Onset: 01/07/2018 Type 2 diabetes mellitus Yuri Bennett MD, PHD Onset: 01/07/2018 Tobacco use Yuri Bennett MD, PHD Onset: 01/07/2018 Essential hypertension Yuri Bennett MD, PHD Onset: 01/07/2018 Gastroesophageal reflux disease Yuri Bennett MD, PHD Onset: 01/07/2018 Chronic obstructive lung disease Yuri Bennett MD, PHD Onset: 01/07/2018 Esophageal dysphagia Yuri Bennett MD, PHD Onset: 01/07/2018 Hypothyroidism Yuri Bennett MD, PHD Onset: 02/28/2018 Compression fracture of thoracic spine Yuri Bennett MD, PHD Onset: 2017 Note: T9, 10, and 11 Acquired scoliosis Yuri Bennett MD, PHD Onset: 03/19/2018 Heart murmur Yuri Bennett MD, PHD Onset: 03/19/2018 Note: Blowing holosystolic - calcifications of aortic valve seen on CT, cardiomegaly Cardiomegaly Yuri Bennett MD, PHD Onset: 03/19/2018 Dizziness and giddiness Yuri Bennett MD, PHD Onset: 03/19/2018 Falls Yuri Bennett MD, PHD Onset: 03/19/2018 Other problems related to housing and Yuri Bennett MD, PHD Onset: 2018 economic circumstances Blepharitis Yuri Bennett MD, PHD Onset: 09/05/2018 Visual disturbance Yuri Bennett MD, PHD Onset: 09/05/2018 Unspecified osteoarthritis, unspecified Yuri Bennett MD, PHD Onset: 09/05 site Family History Date Family Member(s) Observation Comments Mother due to Cancer () Maternal Grandmother due to Heart Attack () Social History Type Date Description Comments Sex Unknown Lives With Son Diet Patient follows no dietary restrictions ADL's/IADL's Independent with all ADL's ETOH Use Denies alcohol use Tobacco Use Start: Unknown Patient is a current smoker, smokes every day Smoking Status Reviewed: 09/11/18 Patient is a current smoker, smokes every day Allergies, Adverse Reactions, Alerts Active Allergies Reaction Severity Comments Date Oxycontin 01/07/2018 Medications Active Medications SIG Qnty Indications Ordering Date Provider Aspirin Ec Low Dose 1 by mouth every 90tabs [place], 09/15/2018 day MD Yuri, 81mg Tablets PHD Macrobid 1 cap by mouth 20caps R35.0 [place], 09/05/2018 100mg twice a day MD Yuri, Capsules PHD D3 Maximum Strength 1 cap by mouth 90caps M54.6 [place], 09/05/2018 every day MD Yuri, 5000Unit Capsules PHD Omeprazole 1 by mouth every 30caps [place], 09/05/2018 Magnesium day MD Yuri, PHD 20.6(20Base) mg Capsules Tizanidine HCL 1 tab by mouth at 14caps M54.6 [place], 09/05/2018 2mg bedtime as needed MD Yuri, Capsules for muscle spasm PHD Pyridium 1 tab by mouth 60tabs R10.2 [place], 09/05/2018 100mg twice a day every MD Yuri, Tablets evening as needed PHD Duloxetine HCL 1 tab by mouth 30caps F33.1 [place], 09/05/2018 30mg every night - stop MD Yuri, Caps DR Ayers venlafaxine PHD CBD [place] 1 apply to affected 15units [place], 08/18/2018 area every day MD Yuri, 4-3-9-1.2% Patches PHD Oxycodone HCL 1 tab by mouth 90tabs [place], 08/18/2018 15mg three times a day MD Yuri, Tablets as needed PHD Nasacort Allergy 2 intranasal every 10.800ml H92.02 [place], 06/27/2018 24HR day MD Yuri, 55mcg/Act PHD Aerosol Quinapril HCL 1 by mouth every 90tabs [place], 06/26/2018 10mg day MD Yuri, Tablets PHD Neomycin/Polymyxin/ 3 drop left ear 10ml A88.1 [place], 06/26/2018 Hydrocortisone twice a day MD Yuri, (Otic) PHD 3.5-53616-4 Solution H92.02 Back Support Women Elastic Adjustable 1units M54.6 Yuri Bennett, 2018 Shoulder Brace Waist Belt , PHD [facility] Back Support Posture Corrector,Posture Corrector, Shoulder Support Brace M54.5 S22.000D Oxybutynin Chloride take one tablet by 30tabs Yuri Bennett MD, 2018 5mg mouth every morning PHD Tablets as needed for bladder spasm Wheelchair M54.5 Yuri Bennett MD, 03/19/2018 [facility] PHD M54.6 Advair HFA 1 puffs inhaled 12gm J44.9 Yuri Bennett, 03/17/2018 115-21mcg/Act twice a day , PHD Aerosol Tylenol 1-2 tab by mouth 180caps Yuri Bennett, 03/14/2018 325mg Capsules every 8 hours as , PHD needed for pain Saline Nasal [place] 2 sprays intranasal 44ml J06.9 Yuri Bennett, 2017 0.65% every 2 hours , PHD Solution congestion or nasal dryness R05 Trazodone HCL 1 tab by mouth at 30tabs Yrui Bennett, 02/28/2018 100mg Tablets bedtime as needed , PHD for sleep Arnicare apply to affected 75g M54.5 Yuri Bennett, 01/07/2018 Gel area four times a , PHD day pain, swelling, bruising Esomeprazole Magnesium tab by mouth every 30caps K21.9 Yuri Bennett, 20mg day before meals , PHD Capsules DR Vitamin D-1000 Maximum 2 by mouth twice a 120tabs Yuri Bennett, Strength day after meals , PHD 1000Unit Tablets Venlafaxine HCL ER 1 by mouth every 90tabs Yuri Bennett, 150mg day , PHD Tablets ER 24HR Calcium 500+D 1 tab by mouth Unknown twice a day after [id number] Tablets meals Rosuvastatin Calcium 1 tab by mouth Unknown 5mg every day Tablets Synthroid 1 by mouth every 90tabs Yuri Bennett, 75mcg Tablets day , PHD History Medications Diazepam 1 tab by mouth 14tabs Yuri Bennett, 08/06/2018 - 5mg twice a day as MD PHD 09/05/2018 Tablets needed for muscle spasm Zithromax two tabs orally 6tabs Yuri Bennett, 07/03/2018 - 250mg today then 1 tab MD PHD 09/05/2018 Tablets daily for 4 more days. Baclofen 1 tab by mouth at 30tabs Yuri Bennett, 06/26/2018 - 5mg bedtime as needed MD PHD 09/05/2018 Tablets Nasonex 2 spray nostrils 17gm H92.02 Yuri Bennett, 06/26/2018 - 50mcg/Act every day MD, PHD 06/27/2018 Suspension Hydrocodone-Acetami by mouth twice a 30tabs M54.6 Yuri Bennett, 2018 - nophen day as needed , PHD 07/21/2018 5-325mg Tablets J44.9 Clonidine HCL take 1 tablet by 60tabs Yuri Bennett, 06/23/2018 - 0.1mg oral route 2 , PHD 06/26/2018 Tablets times every day Nitro-Dur Apply patch 30units Yuri Bennett, 06/20/2018 - 0.1mg/HR every morning , PHD 06/23/2018 Patches 24HR daily and remove at bedtime daily Tramadol HCL 1 tab by mouth 14tabs Yuri Bennett, 06/12/2018 - 50mg twice a day as , PHD 06/26/2018 Tablets needed Nicotrol NS 1 every 4 hours 40ml Z72.0 Yuri Bennett, 06/04/2018 - 10mg/ml as needed , PHD 06/12/2018 Solution Lyrica 1 tab by mouth 45caps M54.6 Yuri Bennett, 06/04/2018 - 75mg Capsules twice a day , PHD 06/12/2018 after meals Valium 1 tab by mouth 90tabs M54.6 Yuri Bennett, 06/04/2018 - 5mg Tablets three times a , PHD 06/12/2018 day as needed Oxycodone HCL tab by mouth 60tabs Yuri Bennett, 05/08/2018 - 20mg twice a day as , PHD 07/21/2018 Tablets needed Benzonatate 1 tab by mouth 30caps J06.9 Yuri Bennett, 2018 - 100mg three times a , PHD 06/04/2018 Capsules day as needed Mucinex DM by mouth twice a 14tabs J06.9 Yuri Bennett, 2018 - 30-600mg day as needed , PHD 06/04/2018 Tablets ER 12HR R05 Hydrocodone-Acetaminophen 1 tab by mouth 30tabs M54.6 [place], 04/24/2018 - 5-325mg Tablets as needed for MD Yuri, 06/04/2018 intractable PHD pain Gabapentin 1 cap by mouth 120caps M54.6 [place], 04/04/2018 - 300mg Capsules with breakfast MD Yuri, 05/08/2018 and lunch, 2-3 PHD at bedtime. M54.5 Ranitidine 150 1 tab by mouth 180tabs [place], 04/04/2018 - Maximum Strength twice a day as MD Yuri, 09/05/2018 150mg needed PHD Tablets Eq Nicotine apply one to skin 14units Z72.0 [place], 03/17/2018 - 14mg/24HR in in the morning, MD Yuri, 06/04/2018 Patches 24HR remove at bedtime PHD daily Traci Allergy 1 tab by mouth 90tabs J30.2 [place], 03/17/2018 - 180mg every day as MD Yuri, 06/04/2018 Tablets needed PHD Zantac 150 Maximum 1 tab by mouth 60tabs J30.2 [place], 03/17/2018 - Strength twice a day as MD Yuri, 06/04/2018 150mg Tablets needed PHD Zofran 1 tab by mouth 30tabs Jessica Gamble, 03/15/2018 - 4mg Tablets every 4 hrs as 06/04/2018 needed for nausea Zofran Odt 1 tab sublingual 30tabs [place], 03/14/2018 - 4mg Tablets as needed for MD Yuri, 03/15/2018 Dispers nausea PHD Omeprazole 1 tab by mouth 30caps [place], 03/14/2018 - 20mg every day before MD Yuri, 06/26/[address] meals PHD Guaifenex [place] 1 tab by mouth 30tabs [place], 03/05/2018 - 600mg twice a day as MD Yuri, 2018 Tablets ER 12HR needed for cough PHD Tessalon Perles 1 tab by mouth at 14caps [place], 03/03/2018 - 100mg bedtime MD Yuri, 03/05/2018 Capsules PHD Levothyroxine Sodium 1 tab by mouth 30tabs [place], 01/29/2018 - every day before MD Yuri, 06/26/2018 88mcg Tablets meals PHD Baclofen 1 tab by mouth at 30tabs [place], 01/21/2018 - 5mg Tablets bedtime as needed MD Yuri, 06/04/2018 PHD Robaxin 1 tab by mouth at 14tabs [place], 01/20/2018 - 500mg Tablets bedtime as needed MD Yuri, 01/21/2018 for muscle spasm PHD Oxycodone HCL 1 tab by mouth 60tabs [place], 01/17/2018 - 15mg twice a day as MD Yuri, 05/08/2018 Tablets needed PHD Gabapentin 1-2 tab by mouth 60tabs M54.6 [place], 01/15/2018 - 600mg every day at MD Yuri, 04/04/2018 Tablets bedtime PHD M5Venancio.5 Advil 3 tab by mouth 120caps Yuri Bennett, 01/10/2018 - 200mg twice a day as , PHD 03/12/2018 Capsules needed Naltrexone HCL 1 tab by mouth 60tabs M54.5 Yuri Bennett, 01/10/2018 - 50mg every day every , PHD 01/17/2018 Tablets morning Celebrex 1 tab by mouth 60caps Yuri Bennett, 01/09/2018 - 100mg twice a day as , PHD 09/05/2018 Capsules needed for pain and swelling Salsalate 1 tab by mouth 30tabs Yuri Bennett, 01/09/2018 - 500mg every day as , PHD 01/15/2018 Tablets needed Naltrexone HCL 1/2 tab by mouth 14tabs M54.5 Yuri Bennett, 01/07/2018 - 50mg every day every , PHD 01/10/2018 Tablets morning Accupril 1 tab by mouth 90tabs I10 Yuri Bennett, 01/07/2018 - 10mg every day , PHD 05/09/2018 Tablets Norvasc 1 tab by mouth 30tabs I10 Yuri Bennett, 01/07/2018 - 5mg Tablets every day , PHD 01/07/2018 Gabapentin 1-2 tab by mouth 60caps M54.6 Yuri Bennett, 01/07/2018 - 300mg at bedtime , PHD 01/15/2018 Capsules M54.5 D3 Maximum Strength 1 cap by mouth 90caps M54.5 Yuri Bennett, 2017 - every day , PHD 02/28/2018 5000Unit Capsules Trazodone HCL 1 tab by mouth 30tabs Yuri Bennett, - 150mg every night at , PHD 02/28/2018 Tablets bedtime Ranitidine 150 1 tab by mouth Unknown - Maximum Strength at bedtime 04/04/2018 300mg Tablets Esomeprazole 1 tab every day Unknown - Magnesium every morning 01/07/[address] Garces once a day as 30tabs Yuri Bennett, - 10mg Tablets needed for , PHD 06/09/2018 bladder spams Gabapentin 1 cap by mouth 30caps M54.6 Unknown - 100mg twice a day 01/07/2018 Capsules M54.5 Lisinopril 1 by mouth every I10 Unknown - 5mg Tablets day 01/07/2018 Lisinopril 1 by mouth every Unknown - 5mg Tablets day 02/28/2018 Cozaar 1 by mouth every 90tabs I10 Yuri Bennett, - 25mg Tablets day , PHD 06/26/2018 Clonidine HCL take 1 tablet by Unknown - 0.1mg oral route 2 06/26/2018 Tablets times every day Vital Signs Date Vital Result Comment 09/05/2018 4:21pm BP Systolic 194 mmHg BP Diastolic 81 mmHg Body Temperature 98.7 F Heart Rate 75 /min Respiratory Rate 18 /min Height 63 inches 5'3" Weight 145.00 lb BMI (Body Mass Index) 25.7 kg/m2 BSA (Body Surface Area) 1.69 m2 [place] body weight in kilograms 52 kg O2 % BldC Oximetry 94 % 06/26/2018 4:10pm BP Systolic 110 mmHg BP Diastolic 70 mmHg Body Temperature 97.0 F Heart Rate 60 /min Respiratory Rate 20 /min Height 63 inches 5'3" Weight 142.00 lb BMI (Body Mass Index) 25.2 kg/m2 BSA (Body Surface Area) 1.67 m2 [place] body weight in kilograms 52 kg 06/04/2018 3:55pm BP Systolic 170 mmHg BP Diastolic 78 mmHg Body Temperature 98.3 F Heart Rate 74 /min Respiratory Rate 18 /min Height 63 inches 5'3" Weight 142.00 lb BMI (Body Mass Index) 25.2 kg/m2 BSA (Body Surface Area) 1.67 m2 [place] body weight in kilograms 52 kg O2 % BldC Oximetry 96 % 03/17/2018 2:35pm BP Systolic 175 mmHg BP Diastolic 81 mmHg Body Temperature 98.0 F Heart Rate 74 /min Respiratory Rate 20 /min Height 63 inches 5'3" Weight 141.00 lb BMI (Body Mass Index) 25.0 kg/m2 BSA (Body Surface Area) 1.67 m2 [place] body weight in kilograms 52 kg O2 % BldC Oximetry 92 % 02/28/2018 1:47pm BP Systolic 170 mmHg BP Diastolic 82 mmHg Body Temperature 98.3 F Heart Rate 86 /min Respiratory Rate 22 /min Height 63 inches 5'3" Weight 141.00 lb BMI (Body Mass Index) 25.0 kg/m2 BSA (Body Surface Area) 1.67 m2 [place] body weight in kilograms 52 kg O2 % BldC Oximetry 92 % 01/07/2018 2:30pm BP Systolic 170 mmHg BP Diastolic 75 mmHg Body Temperature 98.2 F Heart Rate 81 /min Respiratory Rate 20 /min Height 63 inches 5'3" Weight 134.00 lb BMI (Body Mass Index) 23.7 kg/m2 BSA (Body Surface Area) 1.63 m2 [place] body weight in kilograms 52 kg O2 % BldC Oximetry 96 % Results Test Date Facility Test Result H/L Range Note Laboratory test 07/09/2018 [facility] Free T4 0.88 ng /dL N 0.61-1.12 finding [phone] (Free Thyroxine) T3 Free 2.70 pg/mL N 2.5-3.9 TSH (Thyroid Stim Horm) 0.17 mcIU/mL Low 0.34-5.60 CBC Auto Diff 06/23/2018 [facility] White Blood 7.6 10^3/uL N 3.5-10.8 [phone] Count Red Blood Count 4.38 10^6/uL N 3.70-4.87 Hemoglobin 13.4 g/dL N 12.0-16.0 Hematocrit 40 % N 33-41 Mean Corpuscular Volume 91 fL N 80-97 Mean Corpuscular Hemoglobin 31 pg N 27-31 Mean Corpuscular HGB Conc 34 g/dL N 31-36 Red Cell Distribution Width 15 % N 10.5-15 Platelet Count 264 10^3/uL N 150-450 Mean Platelet Volume 8.3 fL N 7.4-10.4 Abs Neutrophils 4.2 10^3/uL N 1.5-7.7 Abs Lymphocytes 2.5 10^3/uL N 1.0-4.8 Abs Monocytes 0.6 10^3/uL N 0-0.8 Abs Eosinophils 0.2 10^3/uL N 0-0.6 Abs Basophils 0 10^3/uL N 0-0.2 Abs Nucleated RBC 0 10^3/uL Granulocyte % 55.2 % Lymphocyte % 32.9 % Monocyte % 8.0 % Eosinophil % 3.3 % Basophil % 0.6 % Nucleated Red Blood Cells % 0.1 Comp Metabolic Panel 06/23/2018 [facility] Sodium 138 mmol/L N 135-145 [phone] Potassium 3.4 mmol/L Low 3.5-5.0 Chloride 105 mmol/L N 101-111 Co2 Carbon Dioxide 28 mmol/L N 22-32 Anion Gap 5 mmol/L N 2-11 Glucose 160 mg/dL High 70-100 Blood Urea Nitrogen 14 mg/dL N 6-24 Creatinine 0.79 mg/dL N 0.51-0.95 BUN/Creatinine Ratio 17.7 N 8-20 Calcium 9.5 mg/dL N 8.6-10.3 Total Protein 6.7 g/dL N 6.4-8.9 Albumin 3.7 g/dL N 3.2-5.2 Globulin 3.0 g/dL N 2-4 Albumin/Globulin Ratio 1.2 N 1-3 Total Bilirubin 0.50 mg/dL N 0.2-1.0 Alkaline Phosphatase 154 U/L High 34-104 Alt 15 U/L N 7-52 Ast 24 U/L N 13-39 Egfr Non- 70.6 >60 Egfr 85.4 >60 1 Laboratory test 06/23/2018 [facility] Troponin I 0.01 ng/mL <0.04 2 finding [phone] Urinalysis Profile 06/23/2018 [facility] Urine Color [place] [phone] Urine Appearance Cloudy Urine Specific [place] 1.017 N 1.010-1.030 Urine pH 5.0 N 5-9 Urine Urobilinogen Negative Negative Urine Ketones Negative Negative Urine Protein Negative Negative Urine Leukocytes 1+ Abnormal Negative Urine Blood 1+ Abnormal Negative Urine Nitrite Negative Negative Urine Bilirubin Negative Negative Urine Glucose Negative Negative Urine White Blood Cell 2+(11-20/hpf) Abnormal Absent Urine Red Blood Cell Absent Absent Urine Bacteria Absent Absent Urine Squamous Epithelial Cell Present Abnormal Absent Urine Hyaline Casts Present Abnormal Absent Urine Culture And 06/23/2018 [facility] Urine Culture SEE RESULT 3 Sensitivities [phone] BELOW Laboratory test 06/19/2018 [facility] Troponin I 0.00 ng/mL <0.04 4 finding [phone] Comp Metabolic 06/19/2018 [facility] Sodium 139 mmol/ L N 135-1 Panel [phone] Potassium 3.7 mmol/L N 3.5-5.0 Chloride 105 mmol/L N 101-111 Co2 Carbon Dioxide 28 mmol/L N 22-32 Anion Gap 6 mmol/L N 2-11 Glucose 96 mg/dL N 70-100 Blood Urea Nitrogen 17 mg/dL N 6-24 Creatinine 0.70 mg/dL N 0.51-0.95 BUN/Creatinine Ratio 24.3 High 8-20 Calcium 9.6 mg/dL N 8.6-10.3 Total Protein 7.0 g/dL N 6.4-8.9 Albumin 3.9 g/dL N 3.2-5.2 Globulin 3.1 g/dL N 2-4 Albumin/Globulin Ratio 1.3 N 1-3 Total Bilirubin 0.30 mg/dL N 0.2-1.0 Alkaline Phosphatase 96 U/L N 34-104 Alt 7 U/L N 7-52 Ast 11 U/L Low 13-39 Egfr Non- 81.1 >60 Egfr 98.2 >60 5 Laboratory test 06/19/2018 [facility] Lactic Acid 0.7 mmol/L N 0.5-2.0 6 finding [phone] CBC Auto Diff 06/19/2018 [facility] White Blood 9.2 10^3/uL N 3.5-10.8 [phone] Count Red Blood Count 4.51 10^6/uL N 3.70-4.87 Hemoglobin 13.6 g/dL N 12.0-16.0 Hematocrit 41 % N 33-41 Mean Corpuscular Volume 91 fL N 80-97 Mean Corpuscular Hemoglobin 30 pg N 27-31 Mean Corpuscular HGB Conc 33 g/dL N 31-36 Red Cell Distribution Width 15 % N 10.5-15 Platelet Count 265 10^3/uL N 150-450 Mean Platelet Volume 8.0 fL N 7.4-10.4 Abs Neutrophils 4.8 10^3/uL N 1.5-7.7 Abs Lymphocytes 3.3 10^3/uL N 1.0-4.8 Abs Monocytes 0.7 10^3/uL N 0-0.8 Abs Eosinophils 0.3 10^3/uL N 0-0.6 Abs Basophils 0.1 10^3/uL N 0-0.2 Abs Nucleated RBC 0 10^3/uL Granulocyte % 51.8 % Lymphocyte % 36.2 % Monocyte % 7.4 % Eosinophil % 3.2 % Basophil % 1.4 % Nucleated Red Blood Cells % 0 Laboratory test 06/19/2018 [facility] Troponin I 0.01 ng/mL <0.04 7 finding [phone] Comp Metabolic 05/28/2018 [facility] Sodium 139 mmol/ L N 135-145 Panel [phone] Potassium 4.0 mmol/L N 3.5-5.0 Chloride 105 [...] Egfr Non- 68.6 >60 Egfr 83.0 >60 8 Lipid Profile 05/28/2018 [facility] Triglycerides 158 mg/dL 9 (Trig/Chol/HDL) [phone] Cholesterol 222 mg/dL 10 HDL Cholesterol 56.6 mg/dL 11 LDL Cholesterol 134 mg/dL 12 Laboratory test 05/28/2018 [facility] Creatine 22 U/ L N 10-223 13 finding [phone] Kinase(CK) CBC Auto Diff 05/15/2018 [facility] White Blood 7.4 N 3.5-10.8 [phone] Count 10^3/uL Red Blood Count 4.64 10^6/uL [...] Blood Cells % 0.1 Urinalysis Profile 05/15/2018 [facility] Urine Color Yellow [phone] Urine Appearance Cloudy Urine Specific [place] 1.025 N 1.010-1.030 Urine pH 5.0 N [...] Present Abnormal Absent Urine Culture And 05/15/2018 [facility] Urine Culture SEE RESULT 14 Sensitivities [phone] BELOW Xray 01/23/2018 [facility] [place] Ultrasound, <pending> [address] [place] [address] [phone] Laboratory test 01/09/2018 [facility] Vitamin D 50 pg /mL 18-78 15 finding [phone] 1,25-Dihydroxy Urinalysis Profile 01/09/2018 [facility] Urine Color Yellow [phone] Urine Appearance Clear Urine Specific [place] 1.012 N 1.010-1.030 Urine pH 6.0 N [...] Squamous Epithelial Cell Present Abnormal Absent Urine Microalbumin 01/09/2018 [facility] Ur Microalbumin < 15.0 Random [phone] (mg/L) Urine Creatinine 67.76 mg/dL Urine Microalbumin/Creatinine TNP <31 16 Comp Metabolic Panel 01/09/2018 [facility] Sodium 139 mmol/L N 135-145 [phone] Potassium 3.9 mmol/L N 3.5-5.0 Chloride 103 [...] Egfr Non- 91.9 >60 Egfr 111.2 >60 17 Laboratory test 01/09/2018 [facility] LDL Cholesterol 143 mg/dL 18 finding [phone] Direct Hemoglobin A1c (Glyco HGB) 5.7 % High 4.0-5.6 19 CBC Auto Diff 01/09/2018 [facility] White Blood 6.5 10^3/uL N 3.5-10.8 [phone] Count Red Blood Count 3.92 10^6/uL Low 4.00-5.40 [...] Blood Cells % 0 Laboratory test 01/09/2018 [facility] Erythrocyte Sed 32 mm/Hr N 0-40 finding [phone] Rate Urine Culture And 01/09/2018 [facility] Urine Culture SEE RESULT 20 Sensitivities [phone] BELOW Hla B27 01/09/2018 [facility] Hla B27 Negative 21 [phone] Hla B27 Interp See Comment 22 1 Because ethnic data is not always [...] 5 Kidney failure <15 (or dialysis) 2 Troponin-I testing on Plasma Separator Tubes (PST) has a known false positive rate of 0.20-0.40%. All positive troponins reflex immediate secondary confirmatory testing. 3 SEE RESULT BELOW Name: SHU MORRIS Amy : [address]: Sergei Silverman MD Acct: [id number] Unit: [id number] AGE: 78 Location: ED Re06/23/18 SEX: F Status: DEP ER SPEC: [id number] SHERRIE: 06/23/18 [facility] DR: Jasen Salazar MD REQ: [id number] RECD: 06/23/18 STATUS: SOLANGE RUBY DR: Yuri Bennett MD _ SOURCE: URINE [facility]: ORDERED: Urine Culture Procedure Result Reported Site Urine Culture Final 06/24/18- 1600 ML No Growth (<1,000 CFU/mL) * ML - Main Lab . END OF REPORT DEPARTMENT OF PATHOLOGY, [address] [place] [address] Rojelio Cullen M.D. Director [facility] # [id number] 4 Troponin-I testing on Plasma Separator Tubes (PST) has a known false positive rate of 0.20-0.40%. All positive troponins reflex immediate secondary confirmatory testing. 5 Because ethnic data is not always readily [...] 15-29 5 Kidney failure <15 (or dialysis) 6 [facility] Severe Sepsis and Septic Shock Management Bundle Measure requires all lactic acids initially measuring >2.0 mmol/L be repeated. 7 Troponin-I testing on Plasma Separator Tubes (PST) has a known false positive rate of 0.20-0.40%. All positive troponins reflex immediate secondary confirmatory testing. 8 Because ethnic data is not always readily [...] 15-29 5 Kidney failure <15 (or dialysis) 9 Desirable: <150 Borderline High: 150-199 High: 200-499 Very High: >500 10 Desirable: <200 Borderline High: 200-239 High: >239 11 Low: <40 Desirable: 40-60 High: >60 12 Desirable: <100 Near Optimal: 100-129 Borderline High: 130-159 High: 160-189 Very High: >189 13 FASTING Copy Result to: YURI BENNETT ([id number]) PT NOT FASTING WANTED TO CONTINUE WITH BLOOD WORK ANYWAY 14 SEE RESULT BELOW Name: SHU MORRIS : [address]: Sly Griffin MD Acct: [id number] Unit: [id number] AGE: 78 Location: ED Re05/15/18 SEX: F Status: REG ER SPEC: [id number] SHERRIE: 05/16/[address]: Dylan London NP REQ: [id number] RECD: 05/16/18 STATUS: SOLANGE RUBY DR: Cathie Bennett MD _ SOURCE: URINE SPDESC: ORDERED: Urine Culture Procedure Result Reported Site Urine Culture Final 05/17/18- 906 ML No growth of clinically significant organisms * ML - Main Lab . END OF REPORT DEPARTMENT OF PATHOLOGY, [address] [place] [address] Rojelio Cullen M.D. Director [facility] # [id number] ADDITIONAL INFORMATION This test was developed and its performance characteristics determined by [facility] in a manner consistent with CLIA requirements. This test has not been cleared or approved by the U.S. Food and Drug Administration. Test Performed by: [facility] [address] [place] [id number] 16 Unable to calculate due to low microalbumin 17 Because ethnic data is not always readily [...] 15-29 5 Kidney failure <15 (or dialysis) 18 Desirable: <100 Near Optimal: 100-129 Borderline High: 130-159 High: 160-189 Very High: >189 19 Therapeutic target for the treatment of diabetes mellitus patients is <7% HBA1C, and in selective patients <6.0%. Please refer to [place] [employer] diabetic care guidelines for further information. 20 SEE RESULT BELOW Name: SHU MORRIS : [address]: Yuri Bennett MD Acct: [id number] Unit: [id number] AGE: 77 Location: [facility] Re01/09/18 SEX: F Status: REG REF SPEC: [id number] SHERRIE: 01/09/[address]: Yuri Bennett MD REQ: [id number] RECD: 01/09/18 STATUS: COMP _ SOURCE: URINE SPDESC: ORDERED: Urine Culture Procedure Result Reported Site Urine Culture Final 01/10/18- 1637 ML No Growth (<1,000 CFU/mL) * ML - Main Lab . END OF REPORT DEPARTMENT OF PATHOLOGY, [address] [place] [address] Rojelio Cullen M.D. Director [facility] # [id number] 21 REFERENCE VALUE Not Applicable 22 RESULT: HLA-B27 antigen was not detected. ADDITIONAL INFORMATION Method: Flow Cytometry Performing Laboratory CLIA# [id number] Test Performed by: [address] [address] Procedures Date Code Description Status 09/11/2018 52403 Eye Exam New Patient Comprehensive Completed 09/05/2018 74510 Brief Emotional/Behav Assessment W/ Scoring Doc Per Completed Standard Inst 03/17/2018 45879 Brief Emotional/Behav Assessment W/ Scoring Doc Per Completed Standard Inst 04/01/2017 06828931 Mammogram Completed 12/17/2013 75304 Anesthesia, Facial Bone Surgery Not Otherwise Spec Completed 12/11/2013 22073 EKG Interpretation And Report Only Completed 08/27/2013 21954 Anesthesia, Neck Organ Surgery Not Otherwise Spec 1Yr Completed Or Older 07/23/2013 27714 Anesthesia, Neck Organ Surgery Not Otherwise Spec 1Yr Completed Or Older 07/20/2013 03386 EKG Interpretation And Report Only Completed Encounters Type Date Location Provider Dx Diagnosis Office Visit 09/05/2018 Yuri Craft, M54.6 Pain in thoracic 4:15p Stevie Ann MD, PHD spine R35.0 Frequency of micturition R10.2 Pelvic and perineal pain R53.83 Other fatigue R30.0 Dysuria M19.90 Unspecified osteoarthritis, unspecified site 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, unspecified eyelid H53.8 Other visual disturbances F33.1 Major depressive disorder, recurrent, moderate R03.0 Elevated blood-pressure reading, w/o diagnosis of htn Office Visit 06/26/2018 4:00p Yuri Craft, R53.83 Other fatigue Stevie Ann MD, PHD I10 Essential (primary) hypertension H92.02 Otalgia, left ear A88.1 Epidemic vertigo R05 Cough M54.6 Pain in thoracic spine Office Visit 06/04/2018 3:30p Yuri Craft M54.6 Pain in thoracic Stevie Ann MD, PHD spine R53.83 Other fatigue Z59.8 Other problems related to housing and economic circumstances E11.9 Type 2 diabetes mellitus without complications J44.9 Chronic obstructive pulmonary disease, unspecified Z72.0 Tobacco use Office Visit 03/17/2018 2:30p Yuri Craft M54.6 Pain in thoracic Stevie Ann MD, [...] E03.9 Hypothyroidism, unspecified Office Visit 01/07/2018 2:00p Family Medicine Yuri Bennett, M54.5 Low back pain Stevie Ann MD, PHD M54.6 Pain in thoracic spine Z72.0 Tobacco use E11.9 Type 2 diabetes mellitus without complications I10 Essential (primary) hypertension K21.9 Gastro-esophageal reflux disease without esophagitis J44.9 Chronic obstructive pulmonary disease, unspecified R13.14 Dysphagia, pharyngoesophageal phase Plan of Treatment Future Appointment(s):10/10/2018 10:45 am - Toño Win MD at [facility]/ 13/2019 - Toño Win MDH34.02 Transient retinal artery occlusion, left eyeComments:- retinal atheroemboli, inferior arteriole, left eye- letter to dr bennett in setting of retinal emboli- respectfully request evaluation of cardiovascular risk factors for possible sources of thromboemboli- patient unsure if has had carotid doppler or echocardiogram- duration unknown; no acute signs ofretinal edema or retinal neovascularization- re-check 4-6 weeks with fundus photos; vf 24-2Follow up:4-6 weeks return visit; dilate ou; oct bebatpL50.372 Puckering of macula, left eyeComments:- macula appears atrophic- pt recalls possible macular hole s/p ppv with membrane peel and macular hole repair- recommend oct macula 4-6 bdykbZ66.1 Presence of intraocular lensComments :- good result- provided updated rx for glasses if gckvbstG56.123 Dry eye syndrome of bilateral lacrimal glandsComments:- please consider for irritation: - warm compresses- artificial tears both eyes: can obtain over the counter and use up to 4 times daily- consider ointment at night- can consider punctal occlusion or restasis
--- OUTSIDE RECORDS SUMMARY | 2018-09-15 20:17 | XMS REPORT | Continuity of Care Document ---
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 Yuri Bennett MD, PHD Primary Care Physician Unavailable Payers Date Identification Numbers Payment Provider Subscriber Policy Number: [id number] Medicare [facility] PayID: [id number] [address] [place] [address] Policy Number: [id number] Medicaid [facility] PayID: [id number] [address] [place] [address] Expires: 2017 Policy Number: [id number] Medicare [facility] PayID: [id number] [address] [place] [address] Problems Active Problems Provider Date Hyperlipidemia Yuri [...] smoker, smokes every day Smoking Status Reviewed: 09/05/18 Patient is a current smoker, smokes every day Allergies, Adverse Reactions, Alerts Active Allergies Reaction Severity Comments Date Oxycontin 01/07/2018 Medications Active Medications SIG Qnty Indications Ordering Date Provider Macrobid 1 cap by mouth 20caps R35.0 [place], 09/05/2018 100mg twice a day MD Yuri, Capsules PHD D3 Maximum Strength 1 cap by mouth 90caps M54.6 [place], 09/05/2018 every day MD Yuri, 5000Unit Capsules PHD Omeprazole 1 by mouth every 30caps Sabrina, 09/05/2018 Magnesium day MD Yuri, PHD 20.6(20Base) mg Capsules Tizanidine HCL 1 tab by mouth at 14caps M54.6 [place], 09/05/2018 2mg bedtime as needed MD Yuri, Capsules for muscle spasm PHD Pyridium 1 tab by mouth 60tabs R10.2 [place], 09/05/2018 100mg twice a day every MD Yuri, Tablets evening as needed PHD Duloxetine HCL 1 tab by mouth 30caps F33.1 [place], 09/05/2018 30mg every night - stop MD Yuri, Caps DR Ayers venlafaxine PHD CBD [place] 1 apply to affected 15units [place], 08/18/2018 area every day MD Yuri, 4-3-9-1.2% Patches PHD Oxycodone HCL 1 tab by mouth 90tabs [place], 08/18/2018 15mg three times a day MD Yuri, Tablets as needed PHD Nasacort Allergy 2 intranasal every 10.800ml H92.02 [place], 06/27/2018 24HR day MD Yuri, 55mcg/Act PHD Aerosol Back Support Women Elastic 1units M54.6 [place], 06/26/2018 [facility] [place] Adjustable Shoulder MD Yuri, Brace Waist Belt PHD Back Support Posture Corrector,Posture Corrector, Shoulder Support Brace M54.5 S22.000D Neomycin/Polymyxin/Hydrocortisone 3 drop left 10ml A88.1 [place], 2018 (Otic) 3.5-35862-3 ear twice a MD Yuri, Solution day PHD H92.02 Quinapril HCL 1 by mouth every 90tabs Yuri Bennett MD, 06/26/2018 10mg day PHD Tablets Oxybutynin Chloride take one tablet by 30tabs Yuri Bennett MD, 2018 5mg mouth every morning PHD Tablets as needed for bladder spasm Wheelchair M54.5 Yuri Bennett MD, 03/19/2018 [facility] PHD M54.6 Advair HFA 1 puffs inhaled 12gm J44.9 Yuri Bennett, 03/17/2018 115-21mcg/Act twice a day , PHD Aerosol Tylenol 1-2 tab by mouth 180caps Yuri Bennett, 03/14/2018 325mg Capsules every 8 hours as MD, PHD needed for pain Saline Nasal [place] 2 sprays intranasal 44ml J06.9 Yuri Bennett, 2017 0.65% every 2 hours , PHD Solution congestion or nasal dryness R05 Trazodone HCL 1 tab by mouth at 30tabs Yuri Bennett, 02/28/2018 100mg Tablets bedtime as needed , PHD for sleep Esomeprazole Magnesium tab by mouth every 30caps K21.9 Yuri Bennett, 20mg day before meals , PHD Capsules DR Dumont apply to affected 75g M54.5 Yuri Bennett, 01/07/2018 Gel area four times a , PHD day pain, swelling, bruising Vitamin D-1000 Maximum 2 by mouth twice a 120tabs Yuri Bennett, Strength day after meals , PHD 1000Unit Tablets Venlafaxine HCL ER 1 by mouth every 90tabs Yuri Bennett, 150mg day , PHD Tablets ER 24HR Calcium 500+D 1 tab by mouth Unknown twice a day after 040-957ny-Levh Tablets meals Rosuvastatin Calcium 1 tab by [...] 09/05/2018 Tablets daily for 4 more days. Hydrocodone-Acetami by mouth twice a 30tabs M54.6 Yuri Bennett, 2018 - nophen day as needed , PHD 07/21/2018 5-325mg Tablets J44.9 Nasonex 2 spray nostrils 17gm H92.02 Yuri Bennett, 06/26/2018 - 50mcg/Act every day MD PHD 06/27/2018 Suspension Baclofen 1 tab by mouth 30tabs Yuri Bennett, 06/26/2018 - 5mg Tablets at bedtime as , PHD 09/05/2018 needed Clonidine HCL take 1 tablet by 60tabs [...] Gabapentin 1 cap by mouth 120caps M54.6 [place], 04/04/2018 - 300mg Capsules with breakfast MD Yuri, 05/08/2018 and lunch, 2-3 PHD at bedtime. M54.5 Ranitidine 150 1 tab by mouth 180tabs [place], 04/04/2018 - Maximum Strength twice a day as MD Yuri, 09/05/2018 150mg needed PHD Tablets Eq Nicotine apply one to skin 14units Z72.0 [place], 03/17/2018 - 14mg/24HR in in the morning, MD Yuri, 06/04/2018 Patches 24HR remove at bedtime PHD daily Traci Allergy 1 tab by mouth 90tabs J30.2 [place], 03/17/2018 - 180mg every day as MD Yuri, 06/04/2018 Tablets needed PHD Zantac 150 Maximum 1 tab by mouth 60tabs J30.2 [place], 03/17/2018 - Strength twice a day as MD Yuri, 06/04/2018 150mg Tablets needed PHD Zofran 1 tab by mouth 30tabs Jessica Gamble, 03/15/2018 - 4mg Tablets every 4 hrs as 06/04/2018 needed for nausea Zofran Odt 1 tab sublingual 30tabs [place], 03/14/2018 - 4mg Tablets as needed for MD Yuri, 03/15/2018 Dispers nausea PHD Omeprazole 1 tab by mouth 30caps [place], 03/14/2018 - 20mg every day before MD Yuri, 06/26/[address] meals PHD Guaifenex [place] 1 tab by mouth 30tabs [place], 03/05/2018 - 600mg twice a day as MD Yuri, 2018 Tablets ER 12HR needed for cough PHD Tesroosevelt Perles 1 tab by mouth at 14caps [place], 03/03/2018 - 100mg bedtime MD Yuri, 03/05/2018 Capsules PHD Levothyroxine Sodium 1 tab by mouth 30tabs [place], 01/29/2018 - every day before MD Yuri, 06/26/2018 88mcg Tablets meals PHD Baclofen 1 tab by mouth at 30tabs [place], 01/21/2018 - 5mg Tablets bedtime as needed MD Yuri, 06/04/2018 PHD Robaxin 1 tab by mouth at 14tabs [place], 01/20/2018 - 500mg Tablets bedtime as needed MD Yuri, 01/21/2018 for muscle spasm PHD Oxycodone HCL 1 tab by mouth 60tabs [place], 01/17/2018 - 15mg twice a day as MD Yuri, 05/08/2018 Tablets needed PHD Gabapentin 1-2 tab by mouth 60tabs M54.6 [place], 01/15/2018 - 600mg every day at MD Yuri, 04/04/2018 Tablets bedtime PHD M54.5 Advil 3 tab by mouth 120caps Yuri [...] DR Garces once a day as 30tabs Sabrina Yuri, - 10mg Tablets needed for , PHD 06/09/2018 bladder spams Gabapentin 1 cap by mouth 30caps M54.6 Unknown - 100mg twice a day 01/07/2018 Capsules M54.5 Lisinopril 1 by mouth every I10 Unknown - 5mg Tablets day 01/07/2018 Lisinopril 1 by mouth every Unknown - 5mg Tablets day 02/28/2018 Cozaar 1 by mouth every 90tabs I10 Sabrina Yuri, - 25mg Tablets day , PHD 06/26/2018 [...] kg/m2 BSA (Body Surface Area) 1.69 m2 [place] body weight in kilograms 52 kg O2 % BldC Oximetry 94 % 06/26/2018 4:10pm BP Systolic 110 mmHg BP Diastolic 70 mmHg Body Temperature 97.0 F Heart Rate 60 /min Respiratory Rate 20 /min Height 63 inches 5'3" Weight 142.00 lb BMI (Body Mass Index) 25.2 kg/m2 BSA (Body Surface Area) 1.67 m2 [place] body weight in kilograms 52 kg 06/04/2018 3:55pm BP Systolic 170 mmHg BP Diastolic 78 mmHg Body Temperature 98.3 F Heart Rate 74 /min Respiratory Rate 18 /min Height 63 inches 5'3" Weight 142.00 lb BMI (Body Mass Index) 25.2 kg/m2 BSA (Body Surface Area) 1.67 m2 [place] body weight in kilograms 52 kg O2 % BldC Oximetry 96 % 03/17/2018 2:35pm BP Systolic 175 mmHg BP Diastolic 81 mmHg Body Temperature 98.0 F Heart Rate 74 /min Respiratory Rate 20 /min Height 63 inches 5'3" Weight 141.00 lb BMI (Body Mass Index) 25.0 kg/m2 BSA (Body Surface Area) 1.67 m2 [place] body weight in kilograms 52 kg O2 % BldC Oximetry 92 % 02/28/2018 1:47pm BP Systolic 170 mmHg BP Diastolic 82 mmHg Body Temperature 98.3 F Heart Rate 86 /min Respiratory Rate 22 /min Height 63 inches 5'3" Weight 141.00 lb BMI (Body Mass Index) 25.0 kg/m2 BSA (Body Surface Area) 1.67 m2 [place] body weight in kilograms 52 kg O2 % BldC Oximetry 92 % 01/07/2018 2:30pm BP Systolic 170 mmHg BP Diastolic 75 mmHg Body Temperature 98.2 F Heart Rate 81 /min Respiratory Rate 20 /min Height 63 inches 5'3" Weight 134.00 lb BMI (Body Mass Index) 23.7 kg/m2 BSA (Body Surface Area) 1.63 m2 [place] body weight in kilograms 52 kg O2 % BldC Oximetry 96 % Results Test Date Facility Test Result H/L Range Note Laboratory test 07/09/2018 [facility] Free T4 0.88 ng /dL N 0.61-1.12 finding [phone] (Free Thyroxine) T3 Free 2.70 pg/mL N 2.5-3.9 TSH (Thyroid Stim Horm) 0.17 mcIU/mL Low 0.34-5.60 CBC Auto Diff 06/23/2018 [facility] White Blood 7.6 10^3/uL N 3.5-10.8 [phone] Count Red Blood Count 4.38 10^6/uL N [...] Cells % 0.1 Comp Metabolic Panel 06/23/2018 [facility] Sodium 138 mmol/L N 135-145 [phone] Potassium 3.4 mmol/L Low 3.5-5.0 Chloride 105 [...] Egfr 85.4 >60 1 Laboratory test 06/23/2018 [facility] Troponin I 0.01 ng/mL <0.04 2 finding [phone] Urinalysis Profile 06/23/2018 [facility] Urine Color [place] [phone] Urine Appearance Cloudy Urine Specific [place] 1.017 N 1.010-1.030 Urine pH 5.0 N [...] Present Abnormal Absent Urine Culture And 06/23/2018 [facility] Urine Culture SEE RESULT 3 Sensitivities [phone] BELOW Laboratory test 06/19/2018 [facility] Troponin I 0.00 ng/mL <0.04 4 finding [phone] Comp Metabolic 06/19/2018 [facility] Sodium 139 mmol/ L N 135-1 Panel [phone] Potassium 3.7 mmol/L N 3.5-5.0 Chloride [...] Egfr 98.2 >60 5 Laboratory test 06/19/2018 [facility] Lactic Acid 0.7 mmol/L N 0.5-2.0 6 finding [phone] CBC Auto Diff 06/19/2018 [facility] White Blood 9.2 10^3/uL N 3.5-10.8 [phone] Count Red Blood Count 4.51 10^6/uL N [...] Blood Cells % 0 Laboratory test 06/19/2018 [facility] Troponin I 0.01 ng/mL <0.04 7 finding [phone] Comp Metabolic 05/28/2018 [facility] Sodium 139 mmol/ L N 135-145 Panel [phone] Potassium 4.0 mmol/L N 3.5-5.0 Chloride 105 [...] Egfr 83.0 >60 8 Lipid Profile 05/28/2018 [facility] Triglycerides 158 mg/dL 9 (Trig/Chol/HDL) [phone] Cholesterol 222 mg/dL 10 HDL Cholesterol 56.6 mg/dL 11 LDL Cholesterol 134 mg/dL 12 Laboratory test 05/28/2018 [facility] Creatine 22 U/ L N 10-223 13 finding [phone] Kinase(CK) CBC Auto Diff 05/15/2018 [facility] White Blood 7.4 N 3.5-10.8 [phone] Count 10^3/uL Red Blood Count 4.64 10^6/uL [...] Blood Cells % 0.1 Urinalysis Profile 05/15/2018 [facility] Urine Color Yellow [phone] Urine Appearance Cloudy Urine Specific [place] 1.025 N 1.010-1.030 Urine pH 5.0 N [...] Present Abnormal Absent Urine Culture And 05/15/2018 [facility] Urine Culture SEE RESULT 14 Sensitivities [phone] BELOW Xray 01/23/2018 [facility] [place] Ultrasound, <pending> [address] [place] [address] [phone] Laboratory test 01/09/2018 [facility] Vitamin D 50 pg /mL 18-78 15 finding [phone] 1,25-Dihydroxy Urinalysis Profile 01/09/2018 [facility] Urine Color Yellow [phone] Urine Appearance Clear Urine Specific [place] 1.012 N 1.010-1.030 Urine pH 6.0 N [...] Cell Present Abnormal Absent Urine Microalbumin 01/09/2018 [facility] Ur Microalbumin < 15.0 Random [phone]/L) Urine Creatinine 67.76 mg/dL Urine Microalbumin/Creatinine TNP <31 16 Comp Metabolic Panel 01/09/2018 [facility] Sodium 139 mmol/L N 135-145 [phone] Potassium 3.9 mmol/L N 3.5-5.0 Chloride 103 [...] Egfr 111.2 >60 17 Laboratory test 01/09/2018 [facility] LDL Cholesterol 143 mg/dL 18 finding [phone] Direct Hemoglobin A1c (Glyco HGB) 5.7 % High 4.0-5.6 19 CBC Auto Diff 01/09/2018 [facility] White Blood 6.5 10^3/uL N 3.5-10.8 [phone] Count Red Blood Count 3.92 10^6/uL Low [...] Blood Cells % 0 Laboratory test 01/09/2018 [facility] Erythrocyte Sed 32 mm/Hr N 0-40 finding [phone] Rate Urine Culture And 01/09/2018 [facility] Urine Culture SEE RESULT 20 Sensitivities [phone] BELOW Hla B27 01/09/2018 [facility] Hla B27 Negative 21 [phone] Hla B27 Interp See Comment 22 1 [...] 3 SEE RESULT BELOW Name: SHU MORRIS : [address]: Sergei Silverman MD Acct: [id number] Unit: [id number] AGE: 78 Location: ED Re06/23/18 SEX: F Status: DEP ER SPEC: [id number] SHERRIE: 06/23/18-[address]: Jasen Salazar MD REQ: [id number] RECD: 06/23/18 STATUS: SOLANGE RUBY DR: Yuri Bennett MD _ SOURCE: URINE [facility]: ORDERED: Urine Culture Procedure Result Reported Site Urine Culture Final 06/24/18- 1600 ML No Growth (<1,000 CFU/mL) * ML - Main Lab . END OF REPORT DEPARTMENT OF PATHOLOGY, [address] [place] [address] Rojelio Cullen M.D. Director [facility] # [id number] 4 Troponin-I testing on Plasma Separator Tubes [...] 5 Kidney failure <15 (or dialysis) 6 [facility] Severe Sepsis and Septic Shock Management [...] 13 FASTING Copy Result to: YURI BENNETT ([id number]) PT NOT FASTING WANTED TO CONTINUE WITH BLOOD WORK ANYWAY 14 SEE RESULT BELOW Name: SHU MORRIS : [address]: Sly Griffin MD Acct: [id number] Unit: [id number] AGE: 78 Location: ED Re05/15/18 SEX: F Status: REG ER SPEC: [id number] SHERRIE: 05/16/[address]: Dylan London NP REQ: [id number] RECD: 05/16/18 STATUS: SOLANGE RUBY DR: Cathie Bennett MD _ SOURCE: URINE SPDESC: ORDERED: Urine Culture Procedure Result Reported Site Urine Culture Final 05/17/18- 0907 ML No growth of clinically significant organisms * ML - Main Lab . END OF REPORT DEPARTMENT OF PATHOLOGY, [address] [place] [id number] Rojelio Cullen M.D. Director [facility] # [id number] ADDITIONAL INFORMATION This test was developed and its performance characteristics determined by [facility] in a manner consistent with CLIA requirements. This test has not been cleared or approved by the U.S. Food and Drug Administration. Test Performed by: [facility] - [address] [address] 16 Unable to calculate due to low [...] in selective patients <6.0%. Please refer to [place] [employer] diabetic care guidelines for further information. 20 SEE RESULT BELOW Name: SHU MORRIS : [address]: Yuri Bennett MD Acct: [id number] Unit: [id number] AGE: 77 Location: [facility] Re01/09/18 SEX: F Status: REG REF SPEC: [id number] SHERRIE: 01/09/[address]: Yuri Bennett MD REQ: [id number] RECD: 01/09/18 STATUS: COMP _ SOURCE: URINE SPDESC: ORDERED: Urine Culture Procedure Result Reported Site Urine Culture Final 01/10/18- 1637 ML No Growth (<1,000 CFU/mL) * ML - Main Lab . END OF REPORT DEPARTMENT OF PATHOLOGY, [address] [place] [address] Rojelio Cullen M.D. Director [facility] # [id number] 21 REFERENCE VALUE Not Applicable 22 RESULT: HLA-B27 antigen was not detected. ADDITIONAL INFORMATION Method: Flow Cytometry Performing Laboratory IA# [id number] Test Performed by: [address] [address] Procedures Date Code Description Status 03/17/2018 10336 Brief Emotional/Behav Assessment W/ Scoring Doc Per Completed Standard Inst 04/01/2017 95764136 Mammogram Completed 12/17/2013 20860 Anesthesia, Facial Bone Surgery Not Otherwise Spec Completed 12/11/2013 82594 EKG Interpretation And Report Only Completed 08/27/201362202 Anesthesia, Neck Organ Surgery Not Otherwise Spec 1Yr Completed Or Older 07/23/201343503 Anesthesia, Neck Organ Surgery Not Otherwise Spec 1Yr Completed Or Older 07/20/2013 54589 EKG Interpretation And Report Only Completed Encounters Type Date Location Provider Dx Diagnosis Office Visit 06/26/2018 Yuri Craft, R53.83 Other fatigue 4:00p Stevie Ann MD, PHD I10 Essential (primary) [...] R13.14 Dysphagia, pharyngoesophageal phase Plan of Treatment 09/05/2018 - Yuri Bennett MD, PHDR35.0 Frequency of micturitionNew Medication:Macrobid 100 mg - 1 cap by mouth twice a dayComments:Risk of anticholinergics for bladder spasm:after studying ??the medical records of 40, 770 patients, ages=65, who were diagnosed with dementia,?? then ??comparing them with 283,933 controls,?? investigators found that ??long-term use of anticholinergic medications for Parkinson??s disease, bladder conditions, and depression was associated with an increased risk for dementia.?? The findings were published online July 24 in the BMJ.Follow up:If fever after 3 days of antibiotic, if worsening symptoms call, if symptoms come back after completing antibiotics, or as needed.R10.2 Pelvic and perineal painNew Medication:Pyridium 100 mg - 1 tab by mouth twice a day every evening as dfmuztE48.6 Pain in thoracic spineNew Medication:D3 Maximum Strength 5000 Unit - 1 cap by mouth every dayTizanidine HCL 2 mg - 1 tab by mouth at bedtime as needed for muscle yeznyR29.83 Other bsbswqbQ14.0 CrkloezX27.90 Unspecified osteoarthritis, unspecified site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, unspecified eyelidReferral:Toño Win MD, JkgsuwgzackssK47.8 Other visual disturbancesReferral:Toño Win MD, OezjvixqtzchcV51.1 Major depressive disorder, recurrent, moderateNew Medication:Duloxetine HCL 30 mg - 1 tab by mouth every night - stop venlafaxineComments:Stop venlafaxine - not working. Will try switching to duloxetine
--- OUTSIDE RECORDS SUMMARY | 2018-09-15 20:17 | XMS REPORT | Continuity of Care Document ---
:1940 External Reference #:[id number] Author Name Toño Win MD Address [address] [facility] [place] [address] Care Team Providers Name Role Phone Yuri Bennett MD, PHD Care Team Information Nuclear Physicist Unavailable Yuri Bennett MD, PHD Primary Care Physician Unavailable Payers Date Identification Numbers Payment Provider Subscriber Policy Number: [id number] Medicare [facility] PayID: [id number] [address] [place] [address] Policy Number: [id number] Medicaid [facility] PayID: [id number] [address] [place] [address] Expires: 2017 Policy Number: [id number] Medicare [facility] PayID: [id number] [address] [place] [address] Problems Active Problems Provider Date Hyperlipidemia Yuri [...] Macrobid 1 cap by mouth 20caps R35.0 Davis, 09/05/2018 100mg twice a day MD Yuri, Capsules PHD D3 Maximum Strength 1 cap by mouth 90caps M54.6 Sabrina, 09/05/2018 every day MD Yuri, 5000Unit Capsules PHD Omeprazole 1 by mouth every 30caps Sabrina, 09/05/2018 Magnesium day MD Yuri, PHD 20.6(20Base) mg Capsules Tizanidine HCL 1 tab by mouth at 14caps M54.6 Davis, 09/05/2018 2mg bedtime as needed MD Yuri, Capsules for muscle spasm PHD Pyridium 1 tab by mouth 60tabs R10.2 Davis, 09/05/2018 100mg twice a day every MD Yuri, Tablets evening as needed PHD Duloxetine HCL 1 tab by mouth 30caps F33.1 Davis, 09/05/2018 30mg every night - stop MD Yuri, Caps DR Ayers venlafaxine PHD CBD Barlow 1 apply to affected 15units Davis, 08/18/2018 area every day MD Yuri, 4-3-9-1.2% Patches PHD Oxycodone HCL 1 tab by mouth 90tabs Sabrina, 08/18/2018 15mg three times a day MD Yuri, Tablets as needed PHD Nasacort Allergy 2 intranasal every 10.800ml H92.02 Sabrina, 06/27/2018 24HR day MD Yuri, 55mcg/Act PHD Aerosol Back Support Women Elastic 1units M54.6 Davis, 06/26/2018 [place] Adjustable Shoulder MD Yuri, Brace Waist Belt PHD Back Support Posture Corrector,Posture Corrector, Shoulder Support Brace M54.5 S22.000D Neomycin/Polymyxin/Hydrocortisone 3 drop left 10ml A88.1 Davis, 2018 (Otic) 3.5-00642-6 ear twice a MD Yuri, Solution day PHD H92.02 Quinapril HCL 1 by mouth every 90tabs Yuri Bennett MD, 06/26/2018 10mg day PHD Tablets Oxybutynin Chloride take one tablet by 30tabs Yuri Bennett MD, 2018 5mg mouth every morning PHD Tablets as needed for bladder spasm Wheelchair M54.5 Yuri Bennett MD, 03/19/2018 [place] PHD M54.6 Advair HFA 1 puffs inhaled 12gm J44.9 Yuri Bennett, 03/17/2018 115-21mcg/Act twice a day MD, PHD Aerosol Tylenol 1-2 tab by mouth 180caps Yuri Bennett, 03/14/2018 325mg Capsules every 8 hours as , PHD needed for pain Saline Nasal [place] 2 sprays intranasal 44ml J06.9 Yuri Bennett, 2017 0.65% every 2 hours MD PHD Solution congestion or nasal dryness R05 Trazodone HCL 1 tab by mouth at 30tabs Yuri Bennett, 02/28/2018 100mg Tablets bedtime as needed MD PHD for sleep Esomeprazole Magnesium tab by mouth every 30caps K21.9 Yuri Bennett, 20mg day before meals , PHD Capsules DR Dumont apply to affected 75g M54.5 Yuri Bennett, 01/07/2018 Gel area four times a MD PHD day pain, swelling, bruising Vitamin D-1000 Maximum 2 by mouth twice a 120tabs Yuri Bennett, Strength day after meals , PHD 1000Unit Tablets Venlafaxine HCL ER 1 by mouth every 90tabs Yuri Bennett, 150mg day MD PHD Tablets ER 24HR Calcium 500+D 1 tab by mouth Unknown twice a day after [id number] Tablets meals Rosuvastatin Calcium 1 tab by [...] Bennett, 2018 - nophen day as needed MD PHD 07/21/2018 5-325mg Tablets J44.9 Nasonex 2 [...] Nicotine apply one to skin 14units Z72.0 Davis, 03/17/2018 - 14mg/24HR in in the morning, MD Yuri, 06/04/2018 Patches 24HR remove at bedtime PHD daily Traci Allergy 1 tab by mouth 90tabs J30.2 Davis, 03/17/2018 - 180mg every day as MD Yuri, 06/04/2018 Tablets needed PHD Zantac 150 Maximum 1 tab by mouth 60tabs J30.2 Davis, 03/17/2018 - Strength twice a day as MD Yuri, 06/04/2018 150mg Tablets needed PHD Zofran 1 tab by mouth 30tabs Jessica Gamble, 03/15/2018 - 4mg Tablets every 4 hrs as 06/04/2018 needed for nausea Zofran Odt 1 tab sublingual 30tabs Davis, 03/14/2018 - 4mg Tablets as needed for MD Yuri, 03/15/2018 Dispers nausea PHD Omeprazole 1 tab by mouth 30caps Davis, 03/14/2018 - 20mg every day before MD Yuri, 06/26/[address] meals PHD Guaifenex [place] 1 tab by mouth 30tabs Davis, 03/05/2018 - 600mg twice a day as MD Yuri, 2018 Tablets ER 12HR needed for cough PHD Tessalon Perles 1 tab by mouth at 14caps Davis, 03/03/2018 - 100mg bedtime MD Yuri, 03/05/2018 Capsules PHD Levothyroxine Sodium 1 tab by mouth 30tabs Sabrina, 01/29/2018 - every day before MD Yuri, 06/26/2018 88mcg Tablets meals PHD Baclofen 1 tab by mouth at 30tabs Sabrina, 01/21/2018 - 5mg Tablets bedtime as needed MD Yuri, 06/04/2018 PHD Robaxin 1 tab by mouth at 14tabs Davis, 01/20/2018 - 500mg Tablets bedtime as needed [...] M54.5 Yuri Bennett, 2017 - every day MD PHD 02/28/2018 5000Unit Capsules Trazodone HCL 1 tab by mouth 30tabs Yuri Bennett, - 150mg every night at MD PHD 02/28/2018 Tablets bedtime Ranitidine 150 1 [...] kg/m2 BSA (Body Surface Area) 1.69 m2 [place] body weight in kilograms 52 kg O2 % BldC Oximetry 94 % 06/26/2018 4:10pm BP Systolic 110 mmHg BP Diastolic 70 mmHg Body Temperature 97.0 F Heart Rate 60 /min Respiratory Rate 20 /min Height 63 inches 5'3" Weight 142.00 lb BMI (Body Mass Index) 25.2 kg/m2 BSA (Body Surface Area) 1.67 m2 [place] body weight in kilograms 52 kg 06/04/2018 3:55pm BP Systolic 170 mmHg BP Diastolic 78 mmHg Body Temperature 98.3 F Heart Rate 74 /min Respiratory Rate 18 /min Height 63 inches 5'3" Weight 142.00 lb BMI (Body Mass Index) 25.2 kg/m2 BSA (Body Surface Area) 1.67 m2 [place] body weight in kilograms 52 kg O2 % BldC Oximetry 96 % 03/17/2018 2:35pm BP Systolic 175 mmHg BP Diastolic 81 mmHg Body Temperature 98.0 F Heart Rate 74 /min Respiratory Rate 20 /min Height 63 inches 5'3" Weight 141.00 lb BMI (Body Mass Index) 25.0 kg/m2 BSA (Body Surface Area) 1.67 m2 [place] body weight in kilograms 52 kg O2 % BldC Oximetry 92 % 02/28/2018 1:47pm BP Systolic 170 mmHg BP Diastolic 82 mmHg Body Temperature 98.3 F Heart Rate 86 /min Respiratory Rate 22 /min Height 63 inches 5'3" Weight 141.00 lb BMI (Body Mass Index) 25.0 kg/m2 BSA (Body Surface Area) 1.67 m2 [place] body weight in kilograms 52 kg O2 % BldC Oximetry 92 % 01/07/2018 2:30pm BP Systolic 170 mmHg BP Diastolic 75 mmHg Body Temperature 98.2 F Heart Rate 81 /min Respiratory Rate 20 /min Height 63 inches 5'3" Weight 134.00 lb BMI (Body Mass Index) 23.7 kg/m2 BSA (Body Surface Area) 1.63 m2 [place] body weight in kilograms 52 kg O2 % BldC Oximetry 96 % Results Test Date Facility Test Result H/L Range Note Laboratory test 07/09/2018 [facility] Free T4 0.88 ng /dL N 0.61-1.12 finding [phone] (Free Thyroxine) T3 Free 2.70 pg/mL N 2.5-3.9 TSH (Thyroid Stim Horm) 0.17 mcIU/mL Low 0.34-5.60 CBC Auto Diff 06/23/2018 [facility] White Blood 7.6 10^3/uL N 3.5-10.8 [phone] Count Red Blood Count 4.38 10^6/uL N [...] Cells % 0.1 Comp Metabolic Panel 06/23/2018 [facility] Sodium 138 mmol/L N 135-145 [phone] Potassium 3.4 mmol/L Low 3.5-5.0 Chloride 105 [...] Egfr 85.4 >60 1 Laboratory test 06/23/2018 [facility] Troponin I 0.01 ng/mL <0.04 2 finding [phone] Urinalysis Profile 06/23/2018 [facility] Urine Color [place] [phone] Urine Appearance Cloudy Urine Specific [place] 1.017 N 1.010-1.030 Urine pH 5.0 N [...] Present Abnormal Absent Urine Culture And 06/23/2018 [facility] Urine Culture SEE RESULT 3 Sensitivities [phone] BELOW Laboratory test 06/19/2018 [facility] Troponin I 0.00 ng/mL <0.04 4 finding [phone] Comp Metabolic 06/19/2018 [facility] Sodium 139 mmol/ L N 135-1 Panel [phone] Potassium 3.7 mmol/L N 3.5-5.0 Chloride [...] Egfr 98.2 >60 5 Laboratory test 06/19/2018 [facility] Lactic Acid 0.7 mmol/L N 0.5-2.0 6 finding [phone] CBC Auto Diff 06/19/2018 [facility] White Blood 9.2 10^3/uL N 3.5-10.8 [phone] Count Red Blood Count 4.51 10^6/uL N [...] Blood Cells % 0 Laboratory test 06/19/2018 [facility] Troponin I 0.01 ng/mL <0.04 7 finding [phone] Comp Metabolic 05/28/2018 [facility] Sodium 139 mmol/ L N 135-145 Panel [phone] Potassium 4.0 mmol/L N 3.5-5.0 Chloride 105 [...] Egfr 83.0 >60 8 Lipid Profile 05/28/2018 [facility] Triglycerides 158 mg/dL 9 (Trig/Chol/HDL) [phone] Cholesterol 222 mg/dL 10 HDL Cholesterol 56.6 mg/dL 11 LDL Cholesterol 134 mg/dL 12 Laboratory test 05/28/2018 [facility] Creatine 22 U/ L N 10-223 13 finding [phone] Kinase(CK) CBC Auto Diff 05/15/2018 [facility] White Blood 7.4 N 3.5-10.8 [phone] Count 10^3/uL Red Blood Count 4.64 10^6/uL [...] Blood Cells % 0.1 Urinalysis Profile 05/15/2018 [facility] Urine Color Yellow [phone] Urine Appearance Cloudy Urine Specific [place] 1.025 N 1.010-1.030 Urine pH 5.0 N [...] Present Abnormal Absent Urine Culture And 05/15/2018 [facility] Urine Culture SEE RESULT 14 Sensitivities [phone] BELOW Xray 01/23/2018 [facility] [place] Ultrasound, <pending> [address] [place] [address] [phone] Laboratory test 01/09/2018 [facility] Vitamin D 50 pg /mL 18-78 15 finding [phone] 1,25-Dihydroxy Urinalysis Profile 01/09/2018 [facility] Urine Color Yellow [phone] Urine Appearance Clear Urine Specific [place] 1.012 N 1.010-1.030 Urine pH 6.0 N [...] Cell Present Abnormal Absent Urine Microalbumin 01/09/2018 [facility] Ur Microalbumin < 15.0 Random [phone] (mg/L) Urine Creatinine 67.76 mg/dL Urine Microalbumin/Creatinine TNP <31 16 Comp Metabolic Panel 01/09/2018 [facility] Sodium 139 mmol/L N 135-145 [phone] Potassium 3.9 mmol/L N 3.5-5.0 Chloride 103 [...] Egfr 111.2 >60 17 Laboratory test 01/09/2018 [facility] LDL Cholesterol 143 mg/dL 18 finding [phone] Direct Hemoglobin A1c (Glyco HGB) 5.7 % High 4.0-5.6 19 CBC Auto Diff 01/09/2018 [facility] White Blood 6.5 10^3/uL N 3.5-10.8 [phone] Count Red Blood Count 3.92 10^6/uL Low [...] Blood Cells % 0 Laboratory test 01/09/2018 [facility] Erythrocyte Sed 32 mm/Hr N 0-40 finding [phone] Rate Urine Culture And 01/09/2018 [facility] Urine Culture SEE RESULT 20 Sensitivities [phone] BELOW Hla B27 01/09/2018 [facility] Hla B27 Negative 21 [phone] Hla B27 Interp See Comment 22 1 [...] [address]: Sergei Silverman MD Acct: [id number] Unit: [id number] AGE: 78 Location: ED Re06/23/18 SEX: F Status: DEP ER SPEC: [id number] SHERRIE: 06/23/18-[address]: Jasen Salazar MD REQ: [id number] RECD: 06/23/18 STATUS: SOLANGE RUBY DR: Yuri Bennett MD _ SOURCE: URINE [facility]: ORDERED: Urine Culture Procedure Result Reported Site Urine Culture Final 06/24/18- 1600 ML No Growth (<1,000 CFU/mL) * ML - Main Lab . END OF REPORT DEPARTMENT OF PATHOLOGY, [address] [place] [address] Rojelio Cullen M.D. Director [facility] # [id number] 4 Troponin-I testing on Plasma Separator Tubes [...] 5 Kidney failure <15 (or dialysis) 6 [facility] Severe Sepsis and Septic Shock Management [...] 13 FASTING Copy Result to: YURI BENNETT ([id number]) PT NOT FASTING WANTED TO CONTINUE WITH BLOOD WORK ANYWAY 14 SEE RESULT BELOW Name: SHU MORRIS : [address]: Sly Griffin MD Acct: [id number] Unit: [id number] AGE: 78 Location: ED Re05/15/18 SEX: F Status: REG ER SPEC: [id number] SHERRIE: 05/16/[address]: Dylan London NP REQ: [id number] RECD: 05/16/18 STATUS: SOLANGE RUBY DR: Cathie Bennett MD _ SOURCE: URINE SPDESC: ORDERED: Urine Culture Procedure Result Reported Site Urine Culture Final 05/17/1807 ML No growth of clinically significant organisms * ML - Main Lab . END OF REPORT DEPARTMENT OF PATHOLOGY, [address] [place] [address] Rojelio Cullen M.D. Director [facility] # [id number] 15 ADDITIONAL INFORMATION This test was developed and its performance characteristics determined by [facility] in a manner consistent with CLIA requirements. This test has not been cleared or approved by the U.S. Food and Drug Administration. Test Performed by: [facility] [address] [place] [address] 16 Unable to calculate due to low [...] in selective patients <6.0%. Please refer to [place] [employer] diabetic care guidelines for further information. 20 SEE RESULT BELOW Name: SHU MORRIS : [address]: Yuri Bennett MD Acct: [id number] Unit: [id number] AGE: 77 Location: [facility] Re01/09/18 SEX: F Status: REG REF SPEC: [id number] SHERRIE: 01/09/[address]: Yuri Bennett MD REQ: [id number] RECD: 01/09/18 STATUS: COMP _ SOURCE: URINE SPDESC: ORDERED: Urine Culture Procedure Result Reported Site Urine Culture Final 01/10/18- 1637 ML No Growth (<1,000 CFU/mL) * ML - Main Lab . END OF REPORT DEPARTMENT OF PATHOLOGY, [address] [place] [address] Rojelio Cullen M.D. Director [facility] # [id number] 21 REFERENCE VALUE Not Applicable 22 RESULT: HLA-B27 antigen was not detected. ADDITIONAL INFORMATION Method: Flow Cytometry Performing Laboratory CLIA# [id number] Test Performed by: [address] [address] Procedures Date Code Description Status 09/11/2018 06942 Eye Exam New Patient Comprehensive Completed 09/05/2018 85919 Brief Emotional/Behav Assessment W/ Scoring Doc Per Completed Standard Inst 03/17/2018 60449 Brief Emotional/Behav Assessment W/ Scoring Doc Per Completed Standard Inst 04/01/2017 88380158 Mammogram Completed 12/17/2013 69588 Anesthesia, Facial Bone Surgery Not Otherwise Spec Completed 12/11/2013 21524 EKG Interpretation And Report Only Completed 08/27/201395897 Anesthesia, Neck Organ Surgery Not Otherwise Spec 1Yr Completed Or Older 07/23/201341491 Anesthesia, Neck Organ Surgery Not Otherwise Spec 1Yr Completed Or Older 07/20/2013 29885 EKG Interpretation And Report Only Completed Encounters Type Date Location Provider Dx Diagnosis Office Visit 09/05/2018 Yuri Craft M54.6 Pain in thoracic 4:15p Stevie Ann MD, PHD spine R35.0 Frequency of micturition R10.2 Pelvic and perineal pain R53.83 Other fatigue R30.0 Dysuria M19.90 Unspecified osteoarthritis, unspecified site 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, unspecified eyelid H53.8 Other visual disturbances F33.1 Major depressive disorder, recurrent, moderate R03.0 Elevated blood-pressure reading, w/o diagnosis of htn Office Visit 06/26/2018 4:00p Yuri Craft R53.83 Other fatigue Stevie Ann MD, PHD [...] allergic rhinitis Office Visit 02/28/2018 1:45p Yuri Craft R53.83 Other fatigue Stevie Ann MD, PHD [...] 10:45 am - Toño Win MD at [facility]/ 13/2019 - Toño Win MDH34.02 Transient retinal [...] up:4-6 weeks return visit; dilate ou; oct nqsjiiE07.372 Puckering of macula, left eyeComments:- macula appears atrophic- pt recalls possible macular hole s/p ppv with membrane peel and macular hole repair- recommend oct macula 4-6 dwbbkA56.1 Presence of intraocular lensComments :- good result- provided updated rx for glasses if tboxvsiY33.123 Dry eye syndrome of bilateral lacrimal glandsComments:- please consider for irritation: - warm compresses- artificial tears both eyes: can obtain over the counter and use up to 4 times daily- consider ointment at night- can consider punctal occlusion or restasis
--- OUTSIDE RECORDS SUMMARY | 2018-09-15 20:17 | XMS REPORT | Continuity of Care Document ---
:1940 External Reference #:[id number] Author Name Sujata Pelayo Care Team Providers Name Role Phone Dary Bush MD Primary Care Physician Unavailable Payers Date Identification Numbers Payment Provider Subscriber Effective: 2017 Policy Number: [id number] Medicare August PayID: [id number] [address] [place] [address] Effective: 2006 Policy Number: [id number] Medicare August Expires: 2018 PayID: [id number] [address] [place] [address] Policy Number: [id number] Medicaid August PayID: [id number] [address] [place] [address] Problems Active Problems Provider Date Chest pain Haylee Santiago M.D. Onset: 03/08/2014 Hyperlipidemia Haylee Santiago M.D. Onset: 03/08/2014 Essential hypertension Haylee Santiago M.D. Onset: 03/08/2014 Pulmonary emphysema Haylee Santiago M.D. Onset: 03/08/2014 Peripheral vascular disease Haylee Santiago M.D. Onset: 03/08/2014 Coronary arteriosclerosis Haylee Santiago M.D. Onset: 05/21/2014 Benign essential hypertension Haylee Santiago M.D. Onset: 05/21/2014 Myalgia & Myositis Unspecified Haylee Santiago M.D. Onset: 05/21/2014 Neuralgia Hieu Bahena MD Onset: 12/10/2014 Idiopathic peripheral neuropathy Hieu Bahena MD Onset: 12/10/2014 Dizziness and giddiness Hieu Bahena MD Onset: 12/10/2014 Pathological fracture of vertebra Andrae Valdovinos M.D. Onset: 02/07/2015 Lumbar sprain Andrae Valdovinos M.D. Onset: 02/07/2015 Age-related osteoporosis without current Andrae Valdovinos M.D. Onset: 2014 pathological fracture Atherosclerotic heart disease of robinson Haylee Santiago M.D. Onset: 05/09/2015 coronary artery with unspecified angina pectoris Mixed hyperlipidemia Haylee Santiago M.D. Onset: 05/09/2015 Late effect of fracture of spine AND/OR Andrae Valdovinos M.D. Onset: 2015 trunk without spinal cord lesion Inflammatory and toxic neuropathy Hieu Bahena MD Onset: 06/15/2015 Temporomandibular joint disorder Hieu Bahena MD Onset: 06/15/2015 Plain X-ray skull abnormal Hieu Bahena MD Onset: 06/15/2015 Abnormal gait Hieu Bahena MD Onset: 01/25/2016 Multi-infarct dementia, uncomplicated Hieu Bahena MD Onset: 05/11/2016 Mitral valve disorder Haylee Santiago M.D. Onset: 05/02/2018 Aortic valve disorder Haylee Santiago M.D. Onset: 06/03/2018 Chronic diastolic heart failure Haylee Santiago M.D. Onset: 06/03/2018 Family History Date Family Member(s) Observation Comments General Tuberculosis father General Cancer mother Social History Type Date Description Comments Sex Unknown Marital Status Lives With Alone Occupation Retired Tobacco Use Start: Unknown Light tobacco smoker (10 or fewer cigarettes/day) Smoking Status Reviewed: 09/02/18 Light tobacco smoker (10 or fewer cigarettes/day) ETOH Use Denies alcohol use Recreational Drug Use Denies Drug Use Tobacco Use Start: Unknown Patient is a current uses logic when she smoker, smokes some feels she needs a days cigarette Exercise Type/Frequency Does not exercise Allergies, Adverse Reactions, Alerts Active Allergies Reaction Severity Comments Date Gabapentin Dizziness 05/02/2018 Inactive Allergies NKDA 03/08/2014 Medications Active Medications SIG Qnty Indications Ordering Date Provider Crestor 1 tab by mouth 90tabs E78.2 Haylee Santiago, 06/03/2018 5mg Tablets every day M.D. Losartan Potassium 1 by mouth every 90tabs Haylee Santiago, 06/03/2018 day M.D. 50mg Tablets Hydrocodone-Acetamin 1 q day as needed Unknown ophen for pain 5-325mg Tablets Ranitidine HCL 1 by mouth once a Unknown 150mg day Capsules Omeprazole 1 by mouth every Unknown 20mg day Capsules Baclofen 1 tab by mouth at Unknown 5mg Tablets bedtime Quinapril HCL 1 by mouth every 90tabs Haylee Santiago, 10mg day M.D. Tablets Vitamin D-3 1 by mouth every Unknown 1000Unit day Capsules Celebrex 1 by mouth twice a Unknown 100mg day Capsules Vesicare 1 by mouth every Unknown 10mg Tablets day Trazodone HCL take 1 tablet by Unknown 100mg mouth at bedtime Tablets Fluticasone 2 sprays each Unknown Propionate nostril daily as 50mcg/Act needed Suspension Oxygen 3 l nc continuous Unknown Misc Ventolin HFA 2 puffs by mouth 1units Unknown four times a day as 108(90Base) mcg/Act needed Aerosol Nexium 1 by mouth qd in Am 30caps Unknown 40mg Capsules Synthroid 1 by mouth every 30tabs Unknown 88mcg day Tablets Effexor XR 1 by mouth daily 90caps Unknown 150mg Caps ER 24HR History Medications Cozaar 1 by mouth every 90tabs R05 Haylee Santiago, 05/02/2018 - 25mg Tablets day M.DIon 06/02/2018 Lisinopril 1 by mouth every 30tabs R05 Brian Andrew 07/23/2017 - 5mg Tablets day Andressa Aviles 05/02/2018 Robaxin 1-2 tab by mouth 60tabs S33.5xxA Andrae Lama 02/07/2015 - 500mg Tablets four times a day Andressa Valdovinos 05/31/2015 as needed spasm Amitriptyline HCL 4 tabs daily 120tabs Hieu Bahena, 12/31/2014 - 10mg MD 04/01/2015 Tablets Gabapentin 1po three times 270caps 729.2 Hieu Bahena, 12/10/2014 - 100mg Capsules a day for 7 days 03/03/2015 then 2 by mouth three times a day for 7 days then 3 by mouth three times a day Lisinopril 1 by mouth every 90tabs Haylee Santiago, 05/21/2014 - 20mg Tablets day M.D. 07/22/2017 Pravastatin Sodium 2 tablet by 90tabs 272.4 Haylee Santiago, 03/08/2014 - 20mg mouth once daily M.D. 12/31/2015 Tablets at bedtime Amitriptyline HCL 1 by mouth every Unknown - 25mg night at bedtime 05/02/2016 Tablets Cyclobenzaprine HCL one by mouth Unknown - 10mg three times a 12/31/2015 Tablets day as needed spasm Meloxicam once daily with Unknown - 15mg Tablets food 12/31/2015 Oxybutynin Chloride ER 1 by mouth every Unknown - day 12/31/2015 10mg Tablets ER 24HR Imitrex take 1 by mouth Unknown - 100mg Tablets every 4-6 hour 12/31/2015 as needed for migraine Carbamazepine 1 tab by mouth Unknown - 200mg daily 12/31/2015 Tablets Sucralfate take 1 tablet Unknown - 1gm Tablets four times a day 05/02/2016 (Before Meals And AT Night) Not currently Raloxifene HCL take 1 tablet by Unknown - 60mg mouth once daily 06/02/2018 Tablets (pt no longer taking) Meloxicam take 1 tablet by Unknown - 15mg Tablets mouth once daily 06/02/2018 Sumatriptan Succinate Take 1 Tablet By Unknown - Mouth AT Onset 06/02/2018 100mg Tablets Of Headache, May Repeat 1 Time AF... Ranitidine HCL 1 daily at night Unknown - 300mg 06/03/2018 Tablets Losartan Potassium 1 by mouth every Unknown - 25mg day 06/03/2018 Tablets Effexor XR 1 by mouth every Unknown - 75mg Caps ER day 06/02/2018 24HR Celecoxib 1 po bid Unknown - 100mg Capsules 04/01/2015 Fenofibrate take 1 tablet Unknown - 160mg Tablets once daily 08/28/2017 Oxycodone HCL Take 1 Tab 3 Unknown - 30mg Times A Day as 2018 Tablets needed Hydrocodone-Acetaminop Take 1 Tablet Unknown - hen Every 4 To 6 08/28/2017 7.5-325mg Tablets Hours as Needed For Pain Billingsley Q Plus 100 2 softgel po Unknown - daily 11/03/2014 Amitriptyline HCL 1 by mouth every Unknown - 25mg night at bedtime 12/31/2014 Tablets Meclizine HCL 2 by mouth four 60tabs Unknown - 25mg times a day as 08/28/2017 Tablets needed Oxycontin 1 po tid prn 60tabs Unknown - 30mg Tab ER 12H 12/09/2014 Abuse-Det Fenofibrate 1 by mouth every 90tabs 272.4 Unknown - 145mg Tablets day 03/08/2014 Lisinopril 2 by mouth every Unknown - 5mg Tablets day 05/21/2014 Oxybutynin Chloride ER 1 by mouth every Unknown - day 03/05/2014 10mg Tablets ER 24HR Aspirin Ec 1 by mouth every 100tabs Unknown - 81mg Tablets day 12/31/2015 DR Medications Administered in Office Medication SIG Qnty Indications Ordering Provider Date Inj, Regadenoson, 0.1 MG Ernesto Aden M.D., 09/18/[address] [facility] Aminophylline Ernesto Aden M.D., 09/18/[address] [facility] Technetium TC 99M Ernesto Aden M.D., 09/18/2016 Tetrofosmin, Per Unit Dose Up JOSE AMAGNO To 40 Millicuries Injection Inj, Regadenoson, 0.1 MG DO JOSE A Rodriguez 05/16/2015 Injection Inj, Regadenoson, 0.1 MG Haylee Santiago M.D. 05/16/2015 Injection Aminophylline Soham Cox DO FACC 05/16/2015 Injection Aminophylline Haylee Santiago M.D. 05/16/2015 Injection Technetium TC 99M Soham Cox, DO FACC 05/16/2015 Tetrofosmin, Per Unit Dose Up To 40 Millicuries Injection Technetium TC 99M Haylee Santiago M.D. 05/16/2015 Tetrofosmin, Per Unit Dose Up To 40 Millicuries Injection Inj, Regadenoson, 0.1 MG Ernesto Aden M.D., 06/27/2012 Injection FACC, FASNC Aminophylline Ernesto Aden M.D., 06/27/2012 Injection FACC, FASNC Technetium TC 99M Ernesto Aden M.D., 06/27/2012 Tetrofosmin, Per Unit Dose Up FACC, FASNC To 40 Millicuries Injection Immunizations CPT Code Status Date Vaccine Lot # [id number] Given 01/09/2016 Fluzone Vaccine Vital Signs Date Vital Result Comment 09/02/2018 4:34pm Height 62 inches 5'2" Weight 143.00 lb Heart Rate 67 /min BP Systolic Sitting 159 mmHg BP Diastolic Sitting 86 mmHg O2 % BldC Oximetry 95 % BMI (Body Mass Index) 26.2 kg/m2 06/03/2018 9:48am Height 62 inches 5'2" Weight [...] H/L Range Note Lipid Panel - 05/28/2018 [facility] Creatine 22 U/L N 10-[address] Kinase(CK) [place] [address] [phone] Comp Metabolic 05/28/2018 [facility] Sodium 139 mmol/L N 135- [address] [place] [address] [phone] Potassium 4.0 mmol/L N 3.5-5.0 Chloride 105 [...] Egfr 83.0 >60 2 Lipid Profile 05/28/2018 [facility] Triglycerides 158 mg/dL 3 (Trig/Chol/HDL) [address] [place] [address] [phone] Cholesterol 222 mg/dL 4 HDL Cholesterol 56.6 [...] 103 mg/dL High 70-100 Laboratory test 12/28/2013 [facility] Activated 33.9 seconds N 24.0-36.[address] [place] [address] Thrombo Time [phone] Laboratory test 12/28/2013 [facility] Inr 0.97 N 0.85-1.[address] [place] [address] [phone] 1 FASTING Copy Result to: YURI GARCÍA ([id number]) PT NOT FASTING WANTED TO CONTINUE WITH [...] >189 Procedures Date Code Description Status 05/29/2018 98898 ECHO Transthoracic, Real-Time 2D With Doppler And Color Completed Flow 05/29/2018 02802 ECHO Transthoracic, Real-Time 2D With Doppler And Color Completed Flow 05/02/2018 59636 EKG Tracing & Interpretation Completed 03/06/2018 48136 Destruction ALL Benign Or Premalignant Lesion (Other Than Completed [place] 11/21/2017 64233 EEG Recording Awake & Asleep Completed 06/26/2017 15157 ECHO Transthorasic Realtime 2D W Doppler & Color Flow Hosp Completed 06/26/2017 95417 EKG, Interpretation Only Completed 12/19/2016 67088 EKG Tracing & Interpretation Completed 09/24/2016 74903 ECHO Transthoracic, Real-Time 2D With Doppler And Color Completed Flow 09/18/2016 14914 Myocardial Perfusion Imaging Tomographic (Spect) Multiple Completed Studies 09/18/2016 34606 Stress Test Completed 09/14/2016 20103 EKG Tracing & Interpretation Completed 05/20/2015 03000 Nerve Conduction 05-06 Studies Completed 05/20/2015 24259 Needle Electromyography Complete, Five Or More Muscles Completed Studied 05/18/2015 83934 Holter Monitoring 24 HR New Completed 05/16/2015 77269 Stress Test Completed 05/16/2015 70540 Myocardial Perfusion Imaging Tomographic (Spect) Multiple Completed Studies 05/16/2015 12173 Myocardial Perfusion Imaging Tomographic (Spect) Multiple Completed Studies 05/13/2015 88234 Holter Monitoring 24 HR New Completed 11/10/2014 70092 EKG Tracing & Interpretation Completed 11/10/2014 43337 EKG Tracing & Interpretation Completed 04/15/2014 97291 Artery Study Extremity Mult Levels Bilateral Completed 03/08/2014 93104 EKG Tracing & Interpretation Completed 12/29/2013 03032 Treadmill Interp/Report Only Completed 12/29/2013 74133 Stress Test Supervsn W/Out I/R Completed 12/29/2013 53065 EKG, Interpretation Only Completed 12/28/2013 20606 EKG, Interpretation Only Completed 08/21/2012 03664 Artery Study Extremity Mult Levels Bilateral Completed 08/15/2012 53424 Carotid Doppler,Bilateral Completed 06/27/2012 45048 ECHO Transthoracic, Real-Time 2D With Doppler And Color Completed Flow 06/27/2012 33308 ECHO Transthoracic, Real-Time 2D With Doppler And Color Completed Flow 06/27/2012 06535 Stress Test Completed 06/27/2012 83376 Myocardial Perfusion Imaging Tomographic (Spect) Multiple Completed Studies 06/26/2012 58738 Stress Test Completed 06/24/2012 61663 EKG Tracing & Interpretation Completed 04/22/2012 82361 EKG, Interpretation Only Completed 03/27/2010 91092 EKG, Interpretation Only Completed Encounters Type Date Location Provider Dx Diagnosis Office Visit 06/03/2018 [facility] Haylee Santiago, I25.10 Athscl heart 9:45a Of [facility] M.DIon disease of robinson coronary artery w/o ang pctrs I73.9 Peripheral vascular disease, unspecified I34.0 Nonrheumatic mitral (valve) insufficiency I35.1 Nonrheumatic aortic (valve) insufficiency M54.5 Low back pain I50.32 Chronic diastolic (congestive) heart failure Z72.0 Tobacco use E78.2 Mixed hyperlipidemia R05 Cough I10 Essential (primary) hypertension R29.6 Repeated falls Office Visit 05/02/2018 8:40a [facility] Haylee Santiago, J30.9 Allergic Of Breaker Up AT [facility] [place] M.D. rhinitis, unspecified R05 Cough I25.10 Athscl heart disease of robinson coronary artery w/o ang pctrs R07.89 Other chest pain Z72.0 Tobacco use I73.9 Peripheral vascular disease, unspecified I34.0 Nonrheumatic mitral (valve) insufficiency I34.2 Nonrheumatic mitral (valve) stenosis Office Visit 03/06/2018 1:30p [facility] Dermatology Jasmin Andrew, L82.1 Other seborrheic MD [...] the nervous sys Office Visit 11/22/2017 4:08p [facility] Lorna Newton, R26.0 Ataxic gait Assoc, Hospitalists N.P. R29.6 Repeated falls G40.909 Epilepsy, unsp, not intractable, without status epilepticus Office Visit 11/21/2017 4:08p [facility] Hilario Saba R26.0 Ataxic gait usama Arrieta II, M.D. Hospitalists R29.6 Repeated falls G40.909 Epilepsy, unsp, not intractable, without status epilepticus Office Visit 10/15/2017 [facility] Ezra S22.070A Wedge compression 2:15p Assoc,pc [place] fracture of Hospitalists T9-T10 vertebra, init S22.080A Wedge compression fracture of T11-T12 vertebra, init D51.9 Vitamin B12 deficiency anemia, unspecified R26.0 Ataxic gait Office Visit 10/14/2017 [facility] Ezra S22.070A Wedge compression 2:14p Assoc,pc [place] fracture of Hospitalists T9-T10 vertebra, init S22.080A Wedge compression fracture of T11-T12 vertebra, init E11.9 Type 2 diabetes mellitus without complications E03.9 Hypothyroidism, unspecified G89.29 Other chronic pain I10 Essential (primary) hypertension Office Visit 10/14/2017 7:00a [facility] Jaleesa De La Vega, R26.0 Ataxic gait R29.6 Repeated falls R41.82 Altered mental status, unspecified Office Visit 10/13/2017 [facility] Ezra S22.070A Wedge compression 2:13p Assoc,pc [place] fracture of Hospitalists T9-T10 vertebra, init [...] Altered mental status, unspecified Office Visit 10/12/2017 [facility] Ezra S22.070A Wedge compression 2:13p Assoc,pc [place] fracture of Hospitalists T9-T10 vertebra, init S22.080A Wedge compression fracture of T11-T12 vertebra, init E11.9 Type 2 diabetes mellitus without complications G89.29 Other chronic pain E03.9 Hypothyroidism, unspecified I10 Essential (primary) hypertension Office Visit 10/11/2017 2:12p [facility] Ezra R29.6 Repeated falls Assoc,DALIA Oconnell Hospitalists R41.0 Disorientation, unspecified S22.070A Wedge compression fracture of T9-T10 vertebra, init S22.080A Wedge compression fracture of T11-T12 vertebra, init Office Visit 08/29/2017 9:30a [facility] Junie Villar I25.10 Athscl heart Of [facility] Eliezer NIonPIon disease of robinson coronary artery w/o ang pctrs I73.9 Peripheral vascular disease, unspecified I35.0 Nonrheumatic aortic (valve) stenosis R06.02 Shortness of breath Office Visit 06/27/2017 12:06p [facility] Garland F03.90 Unspecified Assoc,usama Woodson M.D. dementia without Hospitalists behavioral disturbance I10 Essential (primary) hypertension J44.9 Chronic obstructive pulmonary disease, unspecified W19.xxxA Unspecified fall, initial encounter Office Visit 06/26/2017 7:00a [facility] Jaleesa De La Vega, R29.6 Repeated falls G89.29 Other chronic pain Z79.899 Other usp (current) drug therapy Office Visit 06/25/2017 [facility] Arben F03.90 Unspecified 12:03p Assoc,usama Atwood NJoss dementia without Hospitalists behavioral disturbance I10 Essential (primary) hypertension J44.9 Chronic obstructive pulmonary disease, unspecified W19.xxxA Unspecified fall, initial encounter Office Visit 06/25/2017 7:00a Neurosurgery Vassilios R53.1 Weakness Services Of Isabelle Pelayo MD M79.604 Pain in right leg Office Visit 12/19/2016 2:45p [facility] Haylee Santiago I25.10 Athscl heart Of Isabelle Crisostomo disease of robinson coronary artery w/o ang pctrs R10.13 Epigastric pain I73.9 Peripheral vascular disease, unspecified R06.02 Shortness of breath I35.0 Nonrheumatic aortic (valve) stenosis I34.0 Nonrheumatic mitral (valve) insufficiency I34.2 Nonrheumatic mitral (valve) stenosis I36.1 Nonrheumatic tricuspid (valve) insufficiency I10 Essential (primary) hypertension Office Visit 09/14/2016 1:00p [facility] Haylee Santiago, 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 I71.4 Abdominal aortic aneurysm, without rupture I73.9 Peripheral vascular disease, unspecified E78.2 Mixed hyperlipidemia Z72.0 Tobacco use I25.10 Athscl heart disease of robinson coronary artery w/o ang pctrs R42 Dizziness [...] mobility R29.6 Repeated falls Office Visit 06/15/2015 [place] Hieu Bahena, G62.9 Polyneuropathy, 10:00a Neurologic MD unspecified Services Of [facility] M26.60 Temporomandibular joint disorder, unspecified R90.82 White matter disease, unspecified R26.89 Other abnormalities of gait and mobility Office Visit 06/02/2015 2:45p [facility] Of Haylee Santiago M.D. R63.0 Anorexia Breaker Up I25.10 Athscl heart disease of robinson coronary artery w/o ang pctrs I10 Essential (primary) hypertension Office Visit 05/23/2015 [facility] Andrae Lama M80.88xS Oth osteopor w 1:40p Services Of Isabelle Valdovinos M.D. 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, other specified site Office Visit 05/09/2015 10:30a [facility] Haylee Santiago, R42 Dizziness and Of Isabelle Crisostomo giddiness I25.119 Athscl heart disease of robinson cor art w unsp ang pctrs R07.9 Chest pain, unspecified K21.9 Gastro-esophageal reflux disease without esophagitis I10 Essential (primary) hypertension E78.2 Mixed hyperlipidemia Office Visit 02/07/2015 [facility] Andrae Lama S33.5xxA Sprain of 2:40p Services [facility] Andressa Valdovinos ligaments of lumbar spine, initial encounter M80.88xA Oth osteopor w current path fracture, vertebra(e), init Office Visit 12/10/2014 8:30a [place] [facility] Hieu Bahena, 729.2 Neuralgia Services Of [facility] Neuritis & Radiculitis Unspec 356.8 Neuropathy Other Spec Idiopathic Peripheral 780.4 Dizziness & Giddiness 356.9 Neuropathy Peripheral Hereditary Idiopathic Unspec Office Visit 11/10/2014 [place] Marilee Sanford, 414.01 Coronary 3:30p [facility] [place] Atherosclerosis [facility] [place] 272.4 Hyperlipidemia Other Unspec 401.1 Hypertension Benign 305.1 Tobacco Use Disorder Office Visit 05/21/2014 [place] Haylee Santiago, 414.01 Coronary 1:30p Cardiology Of [place] Atherosclerosis [facility] [place] 272.4 Hyperlipidemia Other Unspec 401.1 Hypertension Benign 729.1 Myalgia & Myositis Unspec Office Visit 03/08/2014 3:45p [facility] Haylee Santiago, 786.50 Pain Chest Of Isabelle Crisostomo Unspec 272.4 Hyperlipidemia Other Unspec 401.9 Hypertension Unspec 492.8 Emphysema Other 443.9 Peripheral Vascular Disease Unspec Office Visit 12/29/2013 10:57a [facility] Chela Griffith, 786.50 Pain Chest Assoc,usama Crisostomo Unspec Hospitalists 272.4 Hyperlipidemia Other Unspec 250.00 Diabetes Mellitus W/O Compl Type II Or Unspec Controlled 486 Pneumonia Organism Unspec Office Visit 12/29/2013 3:31p [facility] Jacky Andrew 786.50 Pain Chest Isabelle Aviles M.D. Unspec Office Visit 12/28/2013 10:57a [facility] Елена Oliva, 786.50 Pain Chest Assoc,pc DO Unspec Hospitalists 272.4 Hyperlipidemia Other Unspec 250.00 Diabetes Mellitus W/O Compl Type II Or Unspec Controlled 401.9 Hypertension Unspec [facility] 577.0 Pancreatitis Acute Assoc,pc N.P. Hospitalists 250.00 Diabetes Mellitus W/O Compl Type II Or Unspec Controlled 492.8 Emphysema Other Office Visit 01/12/2013 10:35a [facility] Lorna Newton, 577.0 Pancreatitis Acute Assoc,pc N.P. Hospitalists 250.00 Diabetes Mellitus W/O Compl Type II Or Unspec Controlled 492.8 Emphysema Other Office Visit 01/11/2013 10:34a [facility] Lorna Newton, 577.0 Pancreatitis Acute Assoc,pc N.P. Hospitalists 250.00 Diabetes Mellitus W/O Compl Type II Or Unspec Controlled 492.8 Emphysema Other Office Visit 01/10/2013 [facility] Enrique Andrew 577.0 Pancreatitis 10:27a Assoc,usama Kellogg M.D. Acute Hospitalists Hospitalist 250.00 Diabetes Mellitus W/O Compl Type II Or Unspec Controlled 492.8 Emphysema Other Office Visit 06/24/2012 [place] Haylee Santiago, 414.01 Coronary 9:45a Cardiology Of [place] Atherosclerosis Isabelle [place] 786.09 Dyspnea & Respiratory Abnormalities Other 785.1 Palpitations Office Visit 08/06/2008 [facility] Andrae Lama 733.01 Osteoporosis 11:40a Services Of Isabelle Valdovinos M.D. Senile 733.13 FX Pathologic Vertebrae Plan of Treatment 09/02/2018 - Dary Bush MDG89.4 Chronic pain syndromeReferral:Pain Clinic, Pain/Clinic/CTR
== END | disposition left against medical advice (07) ==
LOC: ED 19:29
DX: R51 Headache (principal); Z53.21 Procedure and treatment not carried out due to patient leaving prior to being seen by health care provider

== ENCOUNTER 2018-10-03 16:31 | Emergency (ER) | payer MEDICARE, MEDICAID ==
[2018-10-03 16:43] VITALS: BP 148/73
--- NOTE | 2018-10-03 19:49 | UC ---
General HPI - HPI Summary HPI Summary: ONSET YESTERDAY OF ANKLE/FEET SWELLING, LEFT GREATER THAN RIGHT. STATES IT WAS SO BAD SHE COULDN'T PUT HER SHOES ON. TODAY SHE REPORTS IT IS MUCH BETTER BUT STILL PRESENT. NO CALF TENDERNESS. NO LEG PAIN. SHE DENIES CHEST PAIN, SHORTNESS OF BREATH, NAUSEA, FEVER, PALPITATIONS. STATES SHE HAS BEEN PACKING UP HER HOUSE AND DOING A LOT OF PHYSICAL ACTIVITY IN PREPARATION FOR MOVING HOUSES. - History of Current Complaint Chief Complaint: UCLowerExtremity Stated Complaint: LEFT FOOT SWELLING Time Seen by Provider: 10/03/18 17:25 Hx Obtained From: Patient Hx Last Menstrual Period: post menopause Onset/Duration: Gradual Onset, Lasting Days, Still Present Timing: Constant Onset Severity: Moderate Current Severity: Mild Pain Intensity: 0 Associated Signs & Symptoms: Negative: Cough, Chest Pain, Dizziness, Fever, Nausea, Palpitations, Recent Medication Changes, Syncope, SOB - Allergy/Home Medications Allergies/Adverse Reactions: Allergies Allergy/AdvReac Type Severity Reaction Status Date / Time oxycodone [From OxyContin] Allergy Unknown Verified 10/03/18 16:44 Reaction Details PMH/Surg Hx/FS Hx/Imm Hx Endocrine History: Diabetes, Hypothyroidism Cardiovascular History: Hypertension Respiratory History: COPD Other Cancer History: MELANOMA - Surgical History Surgical History: Yes Surgery Procedure, Year, and Place: CATARACTS; PARTIAL THYROIDECTOMY; PAVAN; HYSTERECTOMY; T&A; APPENDECTOMY; [facility] REMOVED FROM KIDNEY; BACK SURGERY; MELANOMA REMOVED FROM LEFT ARM; NASAL SURGERY - Family History Known Family History: Positive: Cardiac Disease - CHF, Other - CANCER - Social History Alcohol Use: None Substance Use Type: None Smoking Status (MU): Heavy Every Day Tobacco Smoker Type: Cigarettes Amount Used/How Often: 1/2 PPD Length of Time of Smoking/Using Tobacco: 60 years Have You Smoked in the Last Year: Yes When Did the Patient Quit Smoking/Using Tobacco: 2 weeks ago Household Exposure Type: Cigarettes - Immunization History Most Recent Influenza Vaccination: 2014 Most Recent Tetanus Shot: utd Most Recent Pneumonia Vaccination: Within 5 years Review of Systems All Other Systems Reviewed And Are Negative: Yes Constitutional: Positive: Negative Skin: Positive: Negative Respiratory: Positive: Negative Cardiovascular: Positive: Negative Gastrointestinal: Positive: Negative Musculoskeletal: Positive: Edema Physical Exam Triage Information Reviewed: Yes Appearance: Well-Appearing, No Pain Distress, Well-Nourished Vital Signs: Initial Vital Signs Temp 98.0 F 10/03/18 16:38 Pulse 74 10/03/18 16:38 Resp 16 10/03/18 16:38 BP 148/73 10/03/18 16:38 Pulse Ox 98 10/03/18 16:38 Vital Signs Reviewed: Yes Eyes: Positive: Conjunctiva Clear ENT: Positive: Hearing grossly normal Neck: Positive: Supple, Nontender, No Lymphadenopathy Respiratory Exam: Normal Cardiovascular Exam: Normal Abdomen Description: Positive: Soft Musculoskeletal: Positive: Edema @ - TRACE NON PITTING EDEMA LEFT ANKLE Neurological: Positive: Alert, Muscle Tone Normal Psychological: Positive: Age Appropriate Behavior, Other: - TEARFUL, EMOTIONAL Skin: Negative: Rashes Course/Dx - Course Course Of Treatment: PATIENT WITH TRACE NONPITTING EDEMA OF HER LEFT ANKLE. SHE DENIES ANY OTHER SYMPTOMS. NO CHEST PAIN, SHORTNESS OF BREATH, NAUSEA, PALPITATIONS. NO FEVER. NO ORTHOPNEA. STATES SHE HAS BEEN PACKING UP HER HOUSE IN PREPARATION FOR A BIG MOVE AND SO HAS BEEN ON HER FEET DOING A LOT OF ACTIVITY OVER THE PAST 1 WEEK. STATES SWELLING IS MUCH IMPROVED TODAY SINCE YESTERDAY. UPON FURTHER DISCUSSION WITH THE PATIENT IT IS DISCOVERED THAT SHE SEEMS TO BE QUITE DEPRESSED ABOUT HER LIVING SITUATION AND SOCIAL/FAMILY SITUATION. [place] AND HAS BAD NEIGHBORS. HER BEST FRIEND IS DYING OF METASTATIC CANCER. SHE IS SAD BECAUSE SEVERAL OF HER CHILDREN DO NOT REACH OUT TO HER AND SHE FEELS UNLOVED AND UNAPPRECIATED. SHE LIVES AT HOME WITH ONE OF HER SONS WHO IS AN EPILEPTIC AND IS VERBALLY AGGRESSIVE TOWARD HER. DESPITE THAT SHE IS EXTREMELY WORRIED ABOUT HIM AND HE IS WANTING TO MOVE OUT ON HIS OWN WHICH CONCERNS HER. SHE ASSURES ME THAT HE IS NOT PHYSICALLY AGGRESSIVE AND SHE IS NOT AFRAID FOR HER SAFETY. SHE IS GOING TO STAY WITH HER DAUGHTER IN [place] FOR A FEW DAYS SHE TRIES TO ORGANIZE A NEW HOUSING SITUATION HOWEVER SHE IS NOT SURE HOW TO GO ABOUT DOING THIS. SHE DOES HAVE AN APPOINTMENT WITH HER PCP IN 3 DAYS. I STRONGLY ENCOURAGED HER TO DISCUSS TREATMENT FOR DEPRESSION. I' VE ALSO DISCUSSED WITH HER CONTACTING THE [employer] FOR ASSISTANCE IN HOW TO GO ABOUT ORGANIZING NEW HOUSING. OF COURSE SHE CAN ALSO DISCUSS THIS WITH HER PCP. SHE WILL GO TO THE ER WITHOUT FAIL IF HER LEG SWELLING WORSENS OR SHE DEVELOPS ANY OTHER CONCERNING SYMPTOMS. - Diagnoses Provider Diagnosis: Ankle edema Discharge - Sign-Out/Discharge Documenting (check all that apply): Patient Departure All imaging exams completed and their final reports reviewed: No Studies - Discharge Plan Condition: Stable Disposition: HOME Patient Education Materials: Leg Edema (ED) Referrals: Martha Bennett MD [Primary Care Provider] - (KEEP YOUR APPT ON SATURDAY) Additional Instructions: YOUR ANKLE/FOOT SWELLING IS VERY MINIMAL AND YOU STATED IS MUCH IMPROVED TODAY. CLINICALLY YOUR PRESENTATION IS NOT CONSISTENT WITH A BLOOD CLOT. NO INDICATION FOR ULTRASOUND TODAY. KEEP YOUR APPOINTMENT WITH YOUR PRIMARY CARE PROVIDER ON SATURDAY. I ALSO RECOMMEND YOU CALL YOUR ONLINE TUTOR YOU MAY BENEFIT FROM REPEAT CARDIAC EVALUATION INCLUDING ECHOCARDIOGRAM. I'M CONCERNED ABOUT YOUR MOOD YOU MAY POSSIBLY BE SUFFERING FROM DEPRESSION. YOU MAY BENEFIT FROM MEDICATION AND/OR COUNSELING. I RECOMMEND YOU ADDRESS THIS WITH YOUR PRIMARY CARE PROVIDER ON SATURDAY. I ALSO RECOMMEND YOU CALL THE [employer] FOR ASSISTANCE WITH RESOURCES FOR FINDING NEW HOUSING. [facility] [address] [place] [id number] YOU CAN ALSO TRY THE [facility] [phone] GO TO THE ER WITHOUT FAIL IF YOU DEVELOP WORSENING SWELLING, SHORTNESS OF BREATH , CHEST PAIN, NAUSEA, PALPITATIONS OR ANY OTHER CONCERNING SYMPTOMS. - Billing Disposition and Condition Condition: STABLE Disposition: Home
== END 2018-10-03 18:57 | disposition home or self-care (01) ==
LOC: UCEAST 16:31
DX: R60.9 Edema, unspecified (principal); E11.9 Type 2 diabetes mellitus without complications; I10 Essential (primary) hypertension; F17.210 Nicotine dependence, cigarettes, uncomplicated
CPT/HCPCS: 99212; G0463

== ENCOUNTER 2018-12-22 12:32 | Inpatient (IN) | payer MEDICARE, MEDICAID ==
--- OUTSIDE RECORDS SUMMARY | 2018-12-22 12:48 | XMS REPORT | Continuity of Care Document ---
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 [place] Care Team Information [employer] [phone] Problems Active Problems Provider Date Hyperlipidemia Martha Bennett MD, PHD Onset: 01/07/2018 Low back pain Martha Bennett MD, PHD Onset: 01/07/2018 Pain in thoracic spine Martha Bennett MD, PHD Onset: 01/07/2018 Type 2 diabetes mellitus Martha Bennett MD, PHD Onset: 01/07/2018 Tobacco use Martha Bennett MD, PHD Onset: 01/07/2018 Essential hypertension Martha Bennett MD, PHD Onset: 01/07/2018 Gastroesophageal reflux disease Martha Bennett MD, PHD Onset: 01/07/2018 Chronic obstructive lung disease Martha Bennett MD, PHD Onset: 01/07/2018 Esophageal dysphagia Martha Bennett MD, PHD Onset: 01/07/2018 Hypothyroidism Martha Bennett MD, PHD Onset: 02/28/2018 Compression fracture of thoracic spine Martha Bennett MD, PHD Onset: 2017 Note: T9, 10, and 11 Acquired scoliosis Martha Bennett MD, PHD Onset: 03/19/2018 Heart murmur Martha Bennett MD, PHD Onset: 03/19/2018 Note: Blowing holosystolic - calcifications of aortic valve seen on CT, cardiomegaly Cardiomegaly Martha Bennett MD, PHD Onset: 03/19/2018 Dizziness and giddiness Martha Bennett MD, PHD Onset: 03/19/2018 Falls Martha Bennett MD, PHD Onset: 03/19/2018 Other problems related to housing and Martha Bennett MD, PHD Onset: 2018 economic circumstances Blepharitis Martha Bennett MD, PHD Onset: 09/05/2018 Visual disturbance Martha Bennett MD, PHD Onset: 09/05/2018 Unspecified osteoarthritis, unspecified Martha Bennett MD, PHD Onset: 09/05 site Social History Type Date Description Comments Sex Unknown ETOH Use Denies alcohol use Tobacco Use Start: Unknown Patient is a current smoker, smokes every day Smoking Status Reviewed: 12/08/18 Patient is a current smoker, smokes every day Allergies, Adverse Reactions, Alerts Active Allergies Reaction Severity Comments Date Oxycontin 01/07/2018 Medications Active Medications SIG Qnty Indications Ordering Date Provider Magnesium Gluconate tab by mouth twice 60tabs M79.606 Martha Bennett, a day muscle spasms , PHD 500mg Tablets B12 Fast Dissolve tab by mouth every 90tabs M79.606 Martha Bennett, 12/17 day , PHD 5000mcg Tablets Dispers Nac 600 1 cap by mouth 90caps F32.0 Martha Bennett, 12/17/2018 600mg three times a day MD PHD Capsules after meals Oxybutynin Chloride by mouth twice a 60tabs Martha Bennett, 12/17/2018 day MD PHD 5mg Tablets Advair HFA 1 puffs inhaled 12gm J44.9 Martha Bennett, 12/17/2018 twice a day MD PHD 115-21mcg/Act Aerosol Oxycodone HCL 1 tab by mouth 90tabs Martha Bennett, 12/17/2018 15mg three times a day MD PHD Tablets as needed Quinapril HCL 1 by mouth every Martha Bennett, 12/17/2018 10mg day MD PHD Tablets Baclofen Take 1 Tablet By 30tabs Martha Bennett, 11/20/2018 5mg Tablets Mouth AT Bedtime as , PHD Needed Buspirone HCL take one tablet by 90tabs Martha Bennett, 10/20/2018 7.5mg mouth three times a , PHD Tablets day as needed Duloxetine HCL 1 tab by mouth 30caps F33.1 Martha Bennett, 09/05/2018 30mg every night - stop , PHD Caps DR Andria venlafaxine Omeprazole Take 1 Capsule By 30caps Martha Bennett, 09/05/2018 20mg Mouth Every Day MD, PHD Capsules DR Back Support Women Elastic 1units M54.6 Martha Bennett, 06/26/2018 [facility] [place] Adjustable Shoulder , PHD Brace Waist Belt Back Support Posture Corrector,Posture Corrector, Shoulder Support Brace M54.5 S22.000D Wheelchair [facility] [place] M54.5 Martha Bennett MD, PHD M54.6 Tylenol 1-2 tab by mouth 180caps Martha Bennett, 03/14/2018 325mg Capsules every 8 hours as , PHD needed for pain Trazodone HCL 1 tab by mouth at 30tabs Martha Bennett, 02/28/2018 100mg bedtime as needed , PHD Tablets for sleep Celebrex 1 tab by mouth 180caps M19.90 Martha Bennett, 01/09/2018 100mg Capsules twice a day as , PHD needed for pain and swelling K21.9 R13.14 Rosuvastatin Calcium 1 tab by mouth 90tabs Martha Bennett MD, 5mg Tablets every day PHD Synthroid 1 by mouth every 90tabs Martha Bennett MD, 75mcg Tablets day PHD History Medications Quinapril HCL 1 tab by mouth 90tabs Martha Bennett, 12/17/2018 - 20mg every day MD PHD 12/17/2018 Tablets Baclofen Take 1 Tablet By 90tabs Martha Bennett, 10/15/2018 - 5mg Mouth AT Bedtime , PHD 10/20/2018 Tablets as Needed Aspirin Ec Low Dose 1 by mouth every 90tabs Martha Bennett, 09/15/2018 - day , PHD 12/17/[address] Babb 1 cap by mouth 20caps R35.0 Martha Bennett, 09/05/2018 - 100mg twice a day , PHD 10/16/2018 Capsules D3 Maximum Strength 1 cap by mouth 90caps M54.6 Martha Bennett, 2018 - every day , PHD 12/17/2018 5000Unit Capsules M79.606 Tizanidine HCL 1 tab by mouth at 14caps M54.6 Martha Bennett, 09/05/2018 - bedtime as needed , PHD 12/17/2018 2mg Capsules for muscle spasm Pyridium 1 tab by mouth 60tabs R10.2 Martha Bennett, 09/05/2018 - 100mg twice a day every , PHD 12/17/2018 Tablets evening as needed CBD [place] 1 apply to 15units Martha Bennett, 08/18/2018 - affected area , PHD 10/16/2018 4-3-9-1.2% Patches every day Oxycodone HCL 1 tab by mouth 90tabs Martha Bennett, 08/18/2018 - three times a day , PHD 12/17/2018 15mg Tablets as needed Diazepam 1 tab by mouth 14tabs Martha Bennett, 08/06/2018 - 5mg twice a day as , PHD 09/05/2018 Tablets needed for muscle spasm Zithromax two tabs orally 6tabs Martha Bennett, 07/03/2018 - 250mg today then 1 tab MD PHD 09/05/2018 Tablets daily for 4 more days. Nasacort Allergy 2 intranasal every 10.800ml H92.02 Martha Bennett, 06/27 - 24HR day , PHD 12/17/2018 55mcg/Act Aerosol Baclofen 1 tab by mouth at 30tabs Martha Bennett, 06/26/2018 - 5mg bedtime as needed , PHD 09/05/2018 Tablets Quinapril HCL 1 by mouth every 90tabs Martha Bennett, 06/26/2018 - day , PHD 12/17/2018 10mg Tablets Neomycin/Polymyxin 3 drop left ear 10ml A88.1 Martha Bennett, 06/26/2018 - /Hydrocortisone twice a day , PHD 12/17/2018 (Otic) [id number] Solution H92.02 Nasonex 2 spray nostrils 17gm H92.02 Martha Bennett, 06/26/2018 - 50mcg/Act every day , PHD 06/27/2018 Suspension Hydrocodone-Acetami by mouth twice a 30tabs M54.6 Martha Bennett, 2018 - nop day as needed , PHD 07/21/2018 5-325mg Tablets J44.9 Clonidine HCL take 1 tablet by 60tabs Martha Bennett, 06/23/2018 - 0.1mg oral route 2 , PHD 06/26/2018 Tablets times every day Nitro-Dur Apply patch every 30units Martha Bennett, 06/20/2018 - 0.1mg/HR morning daily and , PHD 06/23/2018 Patches 24HR remove at bedtime daily Immunizations CPT Code Status Date Vaccine Lot # [id number] Given 12/17/2018 Influenza Virus Vaccine, Quadrivalent, 36 Mos+, [id number] .[id number] Given 12/17/2018 Influenza Virus Vaccine, Quadrivalent, 36 Mos+, .5ML Vital Signs Date Vital Result Comment 12/17/2018 10:00am BP Systolic 169 mmHg BP Diastolic 89 mmHg Body Temperature 97.3 F Heart Rate 69 /min Respiratory Rate 20 /min Height 63 inches 5'3" Weight 139.00 lb BMI (Body Mass Index) 24.6 kg/m2 BSA (Body Surface Area) 1.66 m2 [place] body weight in kilograms 52 kg O2 % BldC Oximetry 95 % 09/05/2018 4:21pm BP Systolic 194 mmHg BP Diastolic 81 mmHg Body Temperature 98.7 F Heart Rate 75 /min Respiratory Rate 18 /min Height 63 inches 5'3" Weight 145.00 lb BMI (Body Mass Index) 25.7 kg/m2 BSA (Body Surface Area) 1.69 m2 [place] body weight in kilograms 52 kg O2 % BldC Oximetry 94 % Results Test Date Facility Test Result H/L Range Note Ua RFX Micro & [facility]16[facility] Urine Color YELLOW Yellow 1 Culture II [address] [place] [address] [phone] Urine Clarity CLEAR Clear Urine Glucose - Dipstick NEGATIVE mg/dL Negative Urine Bilirubin - Dipstick NEGATIVE Negative Urine Ketone NEGATIVE mg/dL Negative Urine Specific [place] 1.020 Normal 1.010-1.030 Urine Blood NEGATIVE Negative Urine PH 6.0 Low 6.5-7.5 Urine Protein - Dipstick NEGATIVE mg/dL Negative Urine Urobilinogen - Dipstick 1.0 E.U./dL Normal 0.2-1.0 Urine Nitrite - Dipstick NEGATIVE Negative Urine Leuk Esterase NEGATIVE Negative Source: URINE, CLEAN CAT <SEE NOTE> 2 Urine Culture 10/16/2018 [facility] Urine Culture MIXED URETHRAL F <SEE [address] NOTE> [place] [address] [phone] Quantity 50,000 - 100,000 <SEE NOTE> 4 Laboratory 07/09/2018 [facility] Free T4 (Free 0.88 Normal 0.61-1.12 test finding [phone] Thyroxine) ng/dL T3 Free 2.70 pg/mL Normal 2.5-3.9 TSH (Thyroid Stim Horm) 0.17 mcIU/mL Low 0.34-5.60 CBC Auto 06/23/2018 [facility] White Blood 7.6 10^3/ uL Normal 3.5-10.8 Diff [phone] Count Red Blood Count 4.38 10^6/uL Normal 3.70-4.87 Hemoglobin 13.4 g/dL Normal 12.0-16.0 Hematocrit 40 % Normal 33-41 Mean Corpuscular Volume 91 fL Normal 80-97 Mean Corpuscular Hemoglobin 31 pg Normal 27-31 Mean Corpuscular HGB Conc 34 g/dL Normal 31-36 Red Cell Distribution Width 15 % Normal 10.5-15 Platelet Count 264 10^3/uL Normal 150-450 Mean Platelet Volume 8.3 fL Normal 7.4-10.4 Abs Neutrophils 4.2 10^3/uL Normal 1.5-7.7 Abs Lymphocytes 2.5 10^3/uL Normal 1.0-4.8 Abs Monocytes 0.6 10^3/uL Normal 0-0.8 Abs Eosinophils 0.2 10^3/uL Normal 0-0.6 Abs Basophils 0 10^3/uL Normal 0-0.2 Abs Nucleated RBC 0 10^3/uL Granulocyte % 55.2 % Lymphocyte % 32.9 % Monocyte % 8.0 % Eosinophil % 3.3 % Basophil % 0.6 % Nucleated Red Blood Cells % 0.1 Comp Metabolic 06/23/2018 [facility] Sodium 138 mmol/ L Normal 135-145 Panel [phone] Potassium 3.4 mmol/L Low 3.5-5.0 Chloride 105 mmol/L Normal 101-111 Co2 Carbon Dioxide 28 mmol/L Normal 22-32 Anion Gap 5 mmol/L Normal 2-11 Glucose 160 mg/dL High 70-100 Blood Urea Nitrogen 14 mg/dL Normal 6-24 Creatinine 0.79 mg/dL Normal 0.51-0.95 BUN/Creatinine Ratio 17.7 Normal 8-20 Calcium 9.5 mg/dL Normal 8.6-10.3 Total Protein 6.7 g/dL Normal 6.4-8.9 Albumin 3.7 g/dL Normal 3.2-5.2 Globulin 3.0 g/dL Normal 2-4 Albumin/Globulin Ratio 1.2 Normal 1-3 Total Bilirubin 0.50 mg/dL Normal 0.2-1.0 Alkaline Phosphatase 154 U/L High 34-104 Alt 15 U/L Normal 7-52 Ast 24 U/L Normal 13-39 Egfr Non- 70.6 >60 Egfr 85.4 >60 5 Laboratory test 06/23/2018 [facility] Troponin I 0.01 ng/mL <0.04 6 finding [phone] Urinalysis Profile 06/23/2018 [facility] Urine Color [place] [phone] Urine Appearance Cloudy Urine Specific [place] 1.017 Normal 1.010-1.030 Urine pH 5.0 Normal 5-9 Urine Urobilinogen Negative Negative Urine Ketones [...] Present Abnormal Absent Urine Culture And 06/23/2018 [facility] Urine Culture SEE RESULT 7 Sensitivities [phone] BELOW Laboratory test 06/19/2018 [facility] Troponin I 0.01 ng/mL <0.0 8 finding [phone] CBC Auto Diff 06/19/2018 [facility] White Blood 9.2 10^3/uL Normal 3.5- [phone] Count 10.8 Red Blood Count 4.51 10^6/uL Normal 3.70-4.87 Hemoglobin 13.6 g/dL Normal 12.0-16.0 Hematocrit 41 % Normal 33-41 Mean Corpuscular Volume 91 fL Normal 80-97 Mean Corpuscular Hemoglobin 30 pg Normal 27-31 Mean Corpuscular HGB Conc 33 g/dL Normal 31-36 Red Cell Distribution Width 15 % Normal 10.5-15 Platelet Count 265 10^3/uL Normal 150-450 Mean Platelet Volume 8.0 fL Normal 7.4-10.4 Abs Neutrophils 4.8 10^3/uL Normal 1.5-7.7 Abs Lymphocytes 3.3 10^3/uL Normal 1.0-4.8 Abs Monocytes 0.7 10^3/uL Normal 0-0.8 Abs Eosinophils 0.3 10^3/uL Normal 0-0.6 Abs Basophils 0.1 10^3/uL Normal 0-0.2 Abs Nucleated RBC 0 10^3/uL Granulocyte % 51.8 % Lymphocyte % 36.2 % Monocyte % 7.4 % Eosinophil % 3.2 % Basophil % 1.4 % Nucleated Red Blood Cells % 0 Laboratory test 06/19/2018 [facility] Lactic Acid 0.7 mmol/L Normal 0.5-2.0 9 finding [phone] Comp Metabolic 06/19/2018 [facility] Sodium 139 mmol/ L Normal 135-145 Panel [phone] Potassium 3.7 mmol/L Normal 3.5-5.0 Chloride 105 mmol/L Normal 101-111 Co2 Carbon Dioxide 28 mmol/L Normal 22-32 Anion Gap 6 mmol/L Normal 2-11 Glucose 96 mg/dL Normal 70-100 Blood Urea Nitrogen 17 mg/dL Normal 6-24 Creatinine 0.70 mg/dL Normal 0.51-0.95 BUN/Creatinine Ratio 24.3 High 8-20 Calcium 9.6 mg/dL Normal 8.6-10.3 Total Protein 7.0 g/dL Normal 6.4-8.9 Albumin 3.9 g/dL Normal 3.2-5.2 Globulin 3.1 g/dL Normal 2-4 Albumin/Globulin Ratio 1.3 Normal 1-3 Total Bilirubin 0.30 mg/dL Normal 0.2-1.0 Alkaline Phosphatase 96 U/L Normal 34-104 Alt 7 U/L Normal 7-52 Ast 11 U/L Low 13-39 Egfr Non- 81.1 >60 Egfr 98.2 >60 10 Laboratory test 06/19/2018 [facility] Troponin I 0.00 ng/mL <0.04 11 finding [phone] 1 R35.0 2 URINE, CLEAN CATCH 3 MIXED URETHRAL [place] 4 50,000 - 100,000 CFU/mL 5 Because ethnic data is not always [...] 5 Kidney failure <15 (or dialysis) 6 Troponin-I testing on Plasma Separator Tubes (PST) has a known false positive rate of 0.20-0.40%. All positive troponins reflex immediate secondary confirmatory testing. 7 SEE RESULT BELOW Name: SHU MORRIS : [address]: Sergei Silverman MD Acct: [id number] Unit: [id number] AGE: 78 Location: ED Re06/23/18 SEX: F Status: DEP ER SPEC: [id number] SHERRIE: 06/23/[address]: Jasen Salazar MD REQ: [id number] RECD: 06/23/18 STATUS: COMP CHRISTENHR DR: Martha Bennett MD _ SOURCE: URINE SPDESC: ORDERED: Urine Culture Procedure Result Reported Site Urine Culture Final 06/24/18- 1600 ML No Growth (<1,000 CFU/mL) * ML - Main Lab . END OF REPORT DEPARTMENT OF PATHOLOGY, [address] [place] [address] Rojelio Cullen M.D. Director [facility] # [id number] 8 Troponin-I testing on Plasma Separator Tubes (PST) has a known false positive rate of 0.20-0.40%. All positive troponins reflex immediate secondary confirmatory testing. 9 [facility] Severe Sepsis and Septic Shock Management Bundle Measure requires all lactic acids initially measuring >2.0 mmol/L be repeated. 10 Because ethnic data is not always readily [...] 15-29 5 Kidney failure <15 (or dialysis) 11 Troponin-I testing on Plasma Separator Tubes (PST) has a known false positive rate of 0.20-0.40%. All positive troponins reflex immediate secondary confirmatory testing. Procedures Date Code Description Status 09/11/2018 95038 Eye Exam New Patient Comprehensive Completed 09/05/2018 13304 Brief Emotional/Behav Assessment W/ Scoring Doc Per Completed Standard Inst 04/01/2017 [id number] Mammogram Completed Medical Devices Description No Information Available Encounters Type Date Location Provider Dx Diagnosis Office Visit 12/17/2018 Family Medicine Martha Bennett, Alondra79.606 Pain in leg, 10:00a Stevie Ann MD, PHD unspecified E11.9 Type 2 diabetes mellitus without complications J44.9 Chronic obstructive pulmonary disease, unspecified Z72.0 Tobacco use F32.0 Major depressive disorder, single episode, mild K21.9 Gastro-esophageal reflux disease without esophagitis M54.5 Low back pain E03.9 Hypothyroidism, unspecified I25.10 Athscl heart disease of [place] coronary artery w/o ang pctrs I10 Essential (primary) hypertension Z59.8 Other problems related to housing and economic circumstances M54.6 Pain in thoracic spine R53.83 Other fatigue R53.81 Other malaise Z13.21 Encounter for screening for nutritional disorder M19.90 Unspecified osteoarthritis, unspecified site R35.0 Frequency of micturition R30.0 Dysuria I73.9 Peripheral vascular disease, unspecified R01.1 Cardiac murmur, unspecified Office Visit 09/05/2018 4:15p Family Medicine Martha Bennett M54.6 Pain in thoracic Stevie Ann MD, PHD spine R35.0 Frequency of micturition R10.2 Pelvic and perineal pain R53.83 Other fatigue R30.0 Dysuria M19.90 Unspecified osteoarthritis, unspecified site 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, unspecified eyelid H53.8 Other visual disturbances F33.1 Major depressive disorder, recurrent, moderate R03.0 Elevated blood-pressure reading, w/o diagnosis of htn Office Visit 06/26/2018 4:00p Family Medicine Martha Bennett, R53.83 Other fatigue Stevie Ann MD, PHD I10 Essential (primary) hypertension H92.02 Otalgia, left ear A88.1 Epidemic vertigo R05 Cough M54.6 Pain in thoracic spine Assessments Date Code Description Provider 12/17/2018 M79.606 Pain in leg, unspecified Martha Bennett MD, PHD 12/17/2018 E11.9 Type 2 diabetes mellitus without Martha Bennett MD, PHD complications 12/17/2018 J44.9 Chronic obstructive pulmonary disease, Martha Bennett MD , PHD unspecified 12/17/2018 Z72.0 Tobacco use Martha Bennett MD, PHD 12/17/2018 F32.0 Major depressive disorder, single Martha Bennett MD, PHD episode, mild 12/17/2018 K21.9 Gastro-esophageal reflux disease without Martha Bennett MD, PHD esophagitis 12/17/2018 M54.5 Low back pain Martha Bennett MD, PHD 12/17/2018 E03.9 Hypothyroidism, unspecified Martha Bennett MD, PHD 12/17/2018 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, 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 12/17/2018 I10 Essential (primary) hypertension Martha Bennett MD, PHD 12/17/2018 Z59.8 Other problems related to housing and Martha Bennett MD, PHD economic circumstances 12/17/2018 M54.6 Pain in thoracic spine Martha Bennett MD, PHD 12/17/2018 R53.83 Other fatigue Martha Bennett MD, PHD 12/17/2018 R53.81 Other malaise Martha Bennett MD, PHD 12/17/2018 Z13.21 Encounter for screening for nutritional Martha Bennett MD, PHD disorder 12/17/2018 M19.90 Unspecified osteoarthritis, unspecified Martha Bennett MD, PHD site 12/17/2018 R35.0 Frequency of micturition Martha Bennett MD, PHD 12/17/2018 R30.0 Dysuria Martha Bennett MD, PHD 12/17/2018 I73.9 Peripheral vascular disease, unspecified Martha Bennett MD, PHD 12/17/2018 R01.1 Cardiac murmur, unspecified Martha Bennett MD, PHD 09/11/2018 H34.02 Transient retinal artery occlusion, left Toño Win MD eye 09/11/2018 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, left eye Toño Win MD 09/11/2018 Z96.1 Presence of intraocular lens Toño Win MD 09/11/2018 H04.123 Dry eye syndrome of bilateral lacrimal Toño Win MD glands 09/05/2018 M54.6 Pain in thoracic spine Martha Bennett MD, PHD 09/05/2018 R35.0 Frequency of micturition Martha Bennett MD, PHD 09/05/2018 R10.2 Pelvic and perineal pain Martha Bennett MD, PHD 09/05/2018 R53.83 Other fatigue Martha Bennett MD, PHD 09/05/2018 R30.0 Dysuria Martha Bennett MD, PHD 09/05/2018 M19.90 Unspecified osteoarthritis, unspecified Martha Bennett MD, PHD site 09/05/2018 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, Martha Bennett MD, PHD unspecified eyelid 09/05/2018 H53.8 Other visual disturbances Martha Bennett MD, PHD 09/05/2018 F33.1 Major depressive disorder, recurrent, Martha Bennett MD, PHD moderate 09/05/2018 R03.0 Elevated blood-pressure reading, w/o Martha Bennett MD, PHD diagnosis of htn 06/26/2018 R53.83 Other fatigue Martha Bennett MD, PHD 06/26/2018 I10 Essential (primary) hypertension Martha Bennett MD, PHD 06/26/2018 H92.02 Otalgia, left ear Martha Bennett MD, PHD 06/26/2018 A88.1 Epidemic vertigo Martha Bennett MD, PHD 06/26/2018 R05 Cough Martha Bennett MD, PHD 06/26/2018 M54.6 Pain in thoracic spine Martha Bennett MD, PHD Plan of Treatment Future Appointment(s):12/29/2018 1:30 pm - Henny Strauss M.D. at Urology Functional Status Functional Condition Comment Date Status Independent with all ADL's Active Mental Status Description No Information Available Referrals Refer to Dr Reason for Referral Status Appt Date Henyn Strauss M.D. Chronic frequency and urgency, UA last Scheduled 12/29 checked normal. Has tried pyridium and anti-spasmodic. Chronic pain problems, Multiple old compression fractures in back, gait and balance difficulty. ? Bladder spasm vs neurologic vs prolapse vs neoplasm due to high tobacco history eval please. [address], [place] [address] [phone] Toño Win MD Can't see to read, can't read pill bottles. Store Closed readers not helping any more. Eyes swollen every morning. Sometimes flashing lights and floaters. Sometimes absolutely no sight in left eye, only using right eye. [address] [place] [address] [phone] Neftali Delgado MD COPD, insatiable smoker, dementia, chronic pain, Sent 07/28 feeling need for portable oxygen tank. Has oxygenator at home from prior PCP. [address] [place] [address] [phone]
--- NOTE | 2018-12-22 14:04 | ED ---
Complex/Multi-Sys Presentation - HPI Summary HPI Summary: This pt is a 78 y/o female presenting to [facility] c/o numbness of right arm, hand, mouth, and tongue. Pt reports she was having blood work done today and she began to have numbness on right hand and arm. She notes she then started to feel nauseous. Pt states that suddenly her tongue and mouth became numb. She reports her daughter called her and was told to come to the ED. Additionally pt states she has been having a headache, described as sharp pain, and charley horse on her left leg. Pt is a current smoker. - History Of Current Complaint Chief Complaint: EDNeurologicalDeficit Time Seen by Provider: 12/22/18 13:51 Hx Obtained From: Patient Onset/Duration: Lasting Hours, Still Present Timing: Hours Severity Currently: Mild Location: Pain At: - head Character: Sharp Aggravating Factor(s): nothing Alleviating Factor(s): nothing Associated Signs And Symptoms: Positive: Headache, Nausea, Other - POSITIVE: numbness on right arm, right hand, tongue, and mouth, charley horse on left leg.. Negative: Fever - Allergies/Home Medications Allergies/Adverse Reactions: Allergies Allergy/AdvReac Type Severity Reaction Status Date / Time oxycodone [From OxyContin] Allergy Unknown Verified 10/03/18 16:44 Reaction Details Home Medications: Home Medications Acetaminophen TAB* [Tylenol TAB*] 325 - 650 mg PO Q8HR PRN 12/22/18 [History Confirmed 12/22/18] Acetylcysteine CAP (RENAL)* 600 mg PO TID 12/22/18 [History Confirmed 12/22/18] Cyanocobalamin TAB* [Vitamin B12 TAB*] 5,000 mcg PO DAILY 12/22/18 [History Confirmed 12/22/18] Duloxetine HCl 30 mg PO QPM 12/22/18 [History Confirmed 12/22/18] Fluticas/Salmet 115/21 HFA(NF) [Advair HFA 115/21 (NF)] 1 puff INH BID 12/22/18 [History Confirmed 12/22/18] Magnesium Gluconate 500 mg PO BID PRN 12/22/18 [History Confirmed 12/22/18] Omeprazole CAP (NF) [Prilosec CAP* 20 MG] 20 mg PO DAILY 12/22/18 [History Confirmed 12/22/18] Oxybutynin Chloride 5 mg PO BID 12/22/18 [History Confirmed 12/22/18] busPIRone TAB* [Buspar TAB*] 7.5 mg PO TID PRN 12/22/18 [History Confirmed 12/22] PMH/Surg Hx/FS Hx/Imm Hx Endocrine/Hematology History: Reports: Hx Diabetes - type 2 dm, Hx Thyroid Disease - hypothyroid Denies: Hx Systemic Lupus Erythematosus Cardiovascular History: Reports: Hx Aneurysm - AAA, Hx Angina, Hx Coronary Artery Disease, Hx Hypercholesterolemia, Hx Hypertension, Hx Myocardial Infarction, Hx Rheumatic Fever Denies: Hx Congestive Heart Failure, Hx Pacemaker/ICD Comment Only: Other Cardiovascular Problems/Disorders - heart murmer since 16 years old Respiratory History: Reports: Hx Chronic Obstructive Pulmonary Disease (COPD), Hx Seasonal Allergies Denies: Hx Asthma, Other Respiratory Problems/Disorders GI History: Reports: Hx Gastroesophageal Reflux Disease, Hx Hiatal Hernia, Other GI Disorders - hiatal hernia Denies: Hx Ulcer History: Reports: Hx Renal Disease - hx of cyst removal, Other Problems/ Disorders - cysts removed from kidney Denies: Hx Dialysis Musculoskeletal History: Reports: Hx Arthritis - BILATERAL KNEES, BACK, BILATERAL HANDS, Hx Back Problems, Hx Osteoporosis Denies: Hx Rheumatoid Arthritis Sensory History: Denies: Hx Contacts or Glasses, Hx Hearing Aid Opthamlomology History: Denies: Hx Contacts or Glasses Neurological History: Reports: Hx Dementia, Hx Headaches, Hx Migraine, Hx Seizures, Other Neuro Impairments/Disorders - COMPRESSION FX T9,T10,T11 AND L1 Psychiatric History: Reports: Hx Anxiety, Hx Depression Denies: Hx Panic Disorder, Hx Substance Abuse - Cancer History Cancer Type, Location and Year: MELANOMA Hx Chemotherapy: No Hx Radiation Therapy: No Hx Palliative Cancer Treatment: No - Surgical History Surgery Procedure, Year, and Place: CATARACTS; PARTIAL THYROIDECTOMY; PAVAN; HYSTERECTOMY; T&A; APPENDECTOMY; CYST REMOVED FROM KIDNEY; BACK SURGERY; MELANOMA REMOVED FROM LEFT ARM; NASAL SURGERY Hx Anesthesia Reactions: No - Immunization History Date of Tetanus Vaccine: Unk Date of Influenza Vaccine: 01/09/13 Infectious Disease History: No Infectious Disease History: Reports: Hx Shingles Denies: Hx Hepatitis, Hx Human Immunodeficiency Virus (HIV), History Other Infectious Disease, Traveled Outside the [place] in Last 30 Days - Family History Known Family History: Positive: Cardiac Disease - CHF, Other - CANCER - Social History Alcohol Use: None Hx Substance Use: No Substance Use Type: Reports: None Hx Tobacco Use: Yes Smoking Status (MU): Heavy Every Day Tobacco Smoker Type: Cigarettes Amount Used/How Often: 1/2 PPD Length of Time of Smoking/Using Tobacco: 60 years Have You Smoked in the Last Year: Yes Review of Systems Negative: Fever, Chills Positive: Nausea Musculoskeletal: Other - POSITIVE: left leg charley horse Positive: Headache, Numbness - right arm and hand All Other Systems Reviewed And Are Negative: Yes Physical Exam - Summary Physical Exam Summary: VITAL SIGNS: Reviewed. GENERAL: Patient is a well-developed and nourished female who is lying comfortable in the stretcher. Patient is not in any acute respiratory distress. HEAD AND FACE: No signs of trauma. No ecchymosis, hematomas or skull depressions. No sinus tenderness. EYES: PERRLA, EOMI x 2, No injected conjunctiva, no nystagmus. No photophobia. EARS: Hearing grossly intact. Ear canals and tympanic membranes are within normal limits. MOUTH: Oropharynx within normal limits. NECK: Supple, trachea is midline, no adenopathy, no JVD, no carotid bruit, no c- spine tenderness, neck with full ROM. No meningeal signs, no Kernig's or brudzinskis signs. CHEST: Symmetric, no tenderness at palpation. LUNGS: Clear to auscultation bilaterally. No wheezing or crackles. CVS: Regular rate and rhythm, S1 and S2 present, no murmurs or gallops appreciated. ABDOMEN: Soft, non-tender. No signs of distention. No rebound, no guarding, and no masses palpated. Bowel sounds are normal. EXTREMITIES: FROM in all major joints, no edema, no cyanosis or clubbing. NEURO: Alert and oriented x 3. No acute neurological deficits. Speech is normal and follows commands. SKIN: Dry and warm. GCS: 15 Triage Information Reviewed: Yes Vital Signs On Initial Exam: Initial Vitals Temp Pulse Resp BP Pulse Ox 97.3 F 79 20 140/112 94 12/22/18 12:35 12/22/18 12:35 12/22/18 12:35 12/22/18 12:35 09/23/19 12:35 Vital Signs Reviewed: Yes Diagnostics - Vital Signs Vital Signs Temp Pulse Resp BP Pulse Ox 12/22/18 12:35 97.3 F 79 20 140/112 94 - Laboratory Result Diagrams: 12/22/18 14:31 12/22/18 18:00 Lab Statement: Any lab studies that have been ordered have been reviewed, and results considered in the medical decision making process. - CT Brain CT CT Interpretation Completed By: Radiologist Summary of CT Findings: IMPRESSION: No acute intracranial pathology. Chronic small vessel ischemic change. Dr. Silverman has reviewed this report. - EKG 14:21 Cardiac Rate: NL - at 60 bpm EKG Rhythm: Sinus Rhythm EKG Comparison: No Significant Change - Similar to prior EKG on 06/23/18. Summary of EKG Findings: No ST elevations. 15:28 Cardiac Rate: NL - at 63 bpm EKG Rhythm: Sinus Rhythm Summary of EKG Findings: No ST elevations. Q waves in leads III and aVF. ST depressions in leads V4, V5, and V6. Complex Multi-Symp Course/Dx Assessment/Plan: Blood test results without any significant abnormality except for sodium 132, potassium 3.4, chloride 99, BUN 32 and creatinine 2.56. This is a new finding for this patient. The patient is in acute renal failure. Glucose 118, troponin is 5.25. Urinalysis positive for UTI. Head CT impression : No acute Intracranial pathology. Chronic small vessel ischemic changes. In the ED course the patient reports that she does not have any chest pain but she does get slight shortness of breath; however, she has a history of COPD. On the physical exam the patient does not have any wheezing. She was given aspirin , nitroglycerin and Lopressor. I discussed the case with Dr. Aviles, human resources generalist, who recommends for the patient to get admitted to the hospitalist for further workup and to rule out an acute coronary syndrome. I discussed the case with Dr. Griffith from the hospitalist services who accepted the patient for admission. - Diagnoses Provider Diagnoses: NSTEMI (non-ST elevated myocardial infarction) - Physician Notifications Discussed Care Of Patient With: Brian Aviles Time Discussed With Above Provider: 15:40 Instructed by Provider To: Other - Discussed with Dr. Aviles, human resources generalist, who recommends admission to the hospitalist for an echo. [15:45] Discussed case with Dr. Griffith, hospitalist, who accepted the pt for admission. Discharge ED - Sign-Out/Discharge Documenting (check all that apply): Patient Departure - Admit to [facility] Patient Received Moderate/Deep Sedation with Procedure: No - Discharge Plan Condition: Stable Disposition: ADMITTED TO [facility] - Billing Disposition and Condition Condition: STABLE Disposition: Admitted to [facility] - Attestation Statements Document Initiated by Scribe: Yes Documenting Scribe: Beth Chisholm Provider For Whom Helga is Documenting (Include Credential): Sergei Silverman MD Scribe Attestation: Beth Bernal, scribed for Sergei Silverman MD on 12/22/18 at 2139. Scribe Documentation Reviewed: Yes Provider Attestation: The documentation as recorded by the Beth moore accurately reflects the service I personally performed and the decisions made by Sergei vazquez MD Status of Scribe Document: Viewed
[2018-12-22 14:46] LABS: ABS Basophils 0.1 10^3/ul (0-0.2); ABS Eosinophils 0.2 10^3/ul (0-0.6); ABS Lymphocytes 2.7 10^3/ul (1.0-4.8); ABS Monocytes 0.8 10^3/ul (0-0.8); ABS Neutrophils 6.7 10^3/ul (1.5-7.7); Eosinophil % 1.7 %; Hematocrit 37 % (35-47); Hemoglobin 12.2 g/dL (12.0-16.0); Lymphocyte % 25.5 %; Mean Corpuscular HGB Conc 33 g/dL (31-36); Mean Corpuscular Hemoglobin 31 pg (27-31); Mean Corpuscular Volume 94 fL (80-97); Mean Platelet Volume 8.6 fL (7.4-10.4); Platelet Count 230 10^3/uL (150-450); Red Blood Count 3.95 10^6 /uL (3.70-4.87); Red Cell Distribution Width 14 % (10-15); White Blood Count 10.5 10^3/uL (3.5-10.8)
[2018-12-22 14:53] LABS: INR 0.95 (0.82-1.09)
[2018-12-22 15:03] LABS: ALT 39 U/L (7-52); AST 30 U/L (13-39); Albumin 3.7 g/dL (3.2-5.2); Albumin/Globulin Ratio 1.1 (1-3); Alkaline Phosphatase 170 U/L (34-104); Anion Gap 6 mmol/L (2-11); BUN/Creatinine Ratio 12.5 (8-20); Blood Urea Nitrogen 32 mg/dL (6-24); CO2 Carbon Dioxide 27 mmol/L (22-32); Calcium 9.1 mg/dL (8.6-10.3); Chloride 99 mmol/L (101-111); Cholesterol 125 mg/dL; EGFR Non-African American 18.2 (>60); Globulin 3.3 g/dL (2-4); Glucose 118 mg/dL (70-100); HDL Cholesterol 47.8 mg/dL; LDL Cholesterol 60 mg/dL; Potassium 3.4 mmol/L (3.5-5.0); Sodium 132 mmol/L (135-145); Triglycerides 88 mg/dL
[2018-12-22 15:08] LABS: Troponin I 5.25 ng/mL (<0.04)
[2018-12-22 15:18] LABS: Alcohol < 10 mg/dL (<10)
[2018-12-22] MEDS ORDERED: Aspirin 81 mg CHEW TAB* 81 MG TAB.CHEW PO ONE (15:25)
[2018-12-22 15:33] LABS: TSH (Thyroid Stimulating Horm) 1.88 mcIU/mL (0.34-5.60)
[2018-12-22] MEDS ORDERED: NS 0.9% 1000 ML** 1,000 ML IV ONE (15:37)
[2018-12-22 15:39] LABS: Urine Appearance Cloudy; Urine Bacteria Absent (Absent); Urine Bilirubin Negative (Negative); Urine Blood Negative (Negative); Urine Color Amber; Urine Glucose Negative (Negative); Urine Ketones Negative (Negative); Urine Nitrite Positive (Negative); Urine Protein 1+(30 mg/dL) (Negative); Urine Red Blood Cell 3+(>10/hpf) (Absent); Urine Specific Gravity 1.014 (1.010-1.030); Urine Squamous Epithelial Cell Present (Absent); Urine Urobilinogen Positive (Negative); Urine White Blood Cell 2+(11-20/hpf) (Absent)
[2018-12-22] MEDS ORDERED: Potassium Chlor TAB* 20 MEQ TAB.ER PO ONE (15:39)
[2018-12-22] MEDS ORDERED: cefTRIAXone(*) 1 GM in NS 0.9% 50 ML* 50 ML IVPB ONE (15:42)
[2018-12-22] MEDS ORDERED: Metoprolol Tartrate TAB* 25 MG PO ONE (15:44)
[2018-12-22 16:15] LABS: CKMB ng/mL 6.8 ng/mL (0.6-6.3)
[2018-12-22] MEDS ORDERED: Al Hydrox/Mg Hydrox/Simet LIQ* 30 ML UDC PO PRN (16:24)
[2018-12-22 16:29] LABS: Urine Benzodiazepine Screen None Detected (None Detect); Urine Opiates Screen Presumptive Positive (None Detect)
[2018-12-22] MEDS ORDERED: NS 0.9% 1000 ML** 1,000 ML IV SCH (16:30)
[2018-12-22] MEDS ORDERED: Baclofen TAB* 10 MG PO PRN (16:32)
[2018-12-22] MEDS ORDERED: busPIRone TAB* 5 MG PO PRN (16:32)
[2018-12-22] MEDS ORDERED: oxyCODONE SR TAB(*) 20 MG TAB.SR PO PRN (16:32)
[2018-12-22] MEDS ORDERED: traZODone TAB* 100 MG PO PRN (16:32)
[2018-12-22 16:44] LABS: Creatine Kinase 75 U/L (10-223)
[2018-12-22 16:59] LABS: Urine Creatinine Concentration 182.27 mg/dL
[2018-12-22] MEDS ORDERED: NS 0.9% 500 ML* 500 ML IV ONE (17:55)
[2018-12-22] MEDS ORDERED: Heparin VIAL(*) 5000 UNITS/ML VIAL (FIVE THOUSAND) ONE (18:12)
[2018-12-22 18:28] LABS: EGFR Non-African American 22.3 (>60)
[2018-12-22] MEDS: NS 0.9% 1000 ML** 1,000 ML IV SCH (18:57)
[2018-12-22] MEDS: Heparin VIAL(*) 5000 UNITS/ML VIAL (FIVE THOUSAND) IV SCH (18:58)
[2018-12-22] MEDS: Heparin DRIP 25,000 UNITS(*) 25,000 UNITS/500 ML BAG IV SCH (18:58)
--- NOTE | 2018-12-22 19:47 | HP ---
CC: Dr. Martha Bennett, [place], [place]; Dr. Aviles; Dr. Santiago * HISTORY AND PHYSICAL: DATE OF ADMISSION: 12/22/18 PRIMARY CARE PROVIDER: Dr. Martha Bennett, [place], [place]. CHIEF COMPLAINT: Tongue numbness, bilateral hand numbness. HISTORY OF PRESENT ILLNESS: Shu Nagy is a 78-year-old female with a history of mild dementia, who just was evicted from the trailer home that she occupied with her 51-year-old epileptic son. They now are temporarily living with the patient's daughter, Chris. The patient stated that she was driving today to have her blood work drawn due to intermittent numbness in bilateral upper extremities and chest pains that was recommended by her primary care provider after the visit on Saturday, 3 days ago. She drove and had a blood work drawn and then she [facility], thinking that she is going to go back to give a urine sample. She stated that she did not feel like she was able to urinate when she was getting her lab work done today. On the way back to the car, she felt bilateral hand numbness, substernal chest pressure, and tongue numbness. The patient stated that those symptoms had been ongoing for quite some time. She is a rather poor historian and she notices herself tearfully so that she has had problems with memory. The patient stated that those symptoms had been ongoing not every day, but maybe every other day or so. She is not very sure if it usually occurs with exercise, but did occur with walking today. It is not associated with shortness of breath or diaphoresis. It went away within minutes. She came into the ED for evaluation and was noted to have a troponin of 5. Currently, she denies chest pain. She is rather tearful and a very poor historian. The patient is going to be admitted. She also was noted to have acute renal failure. PAST MEDICAL HISTORY: Please note that the patient is a very poor historian, but she noted that she has, 1. History of diabetes and was diet controlled. 2. History of COPD, not on oxygen. 3. History of status post melanoma excision in the past. 4. Hypertension. 5. Dyslipidemia. 6. Hypothyroidism. 7. Mild dementia. 8. History of gastroesophageal reflux disease. 9. Diagnosis of seizures in 2018, for which initially she was placed on Depakote before and then discontinued. The patient herself stated that she does not have seizures. 10. Status post hysterectomy. 11. Appendectomy. 12. Cholecystectomy. 13. History of lumbar spine surgery. 14. History of partial thyroidectomy. MEDICATIONS: Include: 1. Synthroid 75 mcg daily. 2. Celebrex 100 mg b.i.d. p.r.n. 3. Crestor 5 mg daily. 4. Trazodone 100 mg at bedtime p.r.n. 5. Acetaminophen on a p.r.n. basis. 6. Duloxetine 30 mg q.p.m. 7. Omeprazole 20 mg daily. 8. BuSpar 7.5 mg t.i.d. p.r.n. 9. Accupril 10 mg daily. 10. Oxycodone immediate release 15 mg t.i.d. p.r.n. 11. Baclofen 5 mg daily p.r.n. 12. Advair 115/21 one inhalation b.i.d. 13. Oxybutynin 5 mg b.i.d. 14. Acetylcysteine 600 mg 3 times a day. 15. Vitamin B12 5000 mcg daily. 16. Magnesium gluconate 500 mg b.i.d. p.r.n. FAMILY HISTORY: Positive for father with CHF, mother with a history of unknown cancer, son with a history of seizures. SOCIAL HISTORY: She used to live with her son who is 51 years old and he has history of epilepsy and does not drive. They used to live in a trailer home, which they were evicted from at the beginning of September. Since then, they have been living with the patient's daughter Chris, but they are looking for an alternative place to stay since they will not be able to live there prison. The patient denies any tobacco, alcohol, or drug use. She drives and she is independent with activities of daily living. She does not use a walker. REVIEW OF SYSTEMS: Please see history of present illness. The patient stated that she had been forgetful. She is tearful when she is talking about that. She complains of chest pain, which she describes as pressure which is mild. She also complains of bilateral hand numbness and tongue numbness when it happens. She also states that occasionally she would get an area of numbness in her left leg that had been ongoing for quite some time. Once again due to being a poor historian, she is unable to pinpoint the time of her symptoms. She denies any shortness of breath. Currently, she denies any chest pain. The patient stated that she has had problems with urinating "discolored urine" but she also was given Pyridium for dysuria symptoms. Currently, she denies any problems with burning with urination, but she complains of nocturia approximately 3 times per night. All the remaining 12 systems were reviewed with the patient and were otherwise negative. PHYSICAL EXAMINATION GENERAL: The patient is a very pleasant 78-year-old female who is in no acute distress. The patient is alert and oriented x3, very forgetful though. VITAL SIGNS: Blood pressure of 138/59, heart rate of 61 and regular, respiratory rate 16, oxygen saturation 93% on room air, temperature of 97.3. HEENT: Head: Atraumatic, normocephalic. Eyes: Pupils are equal, reactive to light and accommodation. Oropharynx is clear. Mucosa moist. NECK: Supple. No JVD. No bruits bilaterally. RESPIRATORY: Clear to auscultation bilaterally. CARDIOVASCULAR: Regular rate and rhythm with 2-3/6 systolic ejection murmur noted on auscultation of the right upper sternal border in the bilateral carotids. ABDOMEN: Soft, nontender. Bowel sounds are present in all 4 quadrants. EXTREMITIES: There is no edema. Pulses are +2 bilaterally. No clubbing or cyanosis. NEUROLOGIC: Speech is clear. Cranial nerves II through XII are grossly intact. Motor strength is 5/5 bilaterally. Sensation is grossly intact. PSYCHIATRIC EVALUATION: Oriented x3. Forgetful in regards to recent events. Occasionally tearful. SKIN: On evaluation of the skin, no ecchymotic areas or rashes noted. DIAGNOSTIC STUDIES/LAB DATA: White blood cell count of 10.5, hemoglobin of 12.2, hematocrit of 37, MCV of 94, and platelets 230. INR was 0.95. Sodium 132 , potassium 3.4, chloride 99, carbon dioxide 27, BUN 32, creatinine 2.56. Liver function tests were unremarkable apart from alkaline phosphatase elevation of 170. Troponin of 5.2. CPK of 75, CK-MB of 6.8, vitamin B12 level above 1450, TSH of 1.8. Urinalysis positive for +3 rbc's, +2 wbc's. Positive for nitrite, urobilinogen , trace protein, hyaline casts. Urine creatinine concentration of 182 and sodium of 41. The fractional excretion of sodium was calculated at 0.4 indicating prerenal issues. Portable chest x-ray, impression: "No evidence of acute intrathoracic disease. " The patient's EKG showed normal sinus rhythm with a heart rate at 63 beats per minute with likely old inferior infarct. Brain CT, impression: "No acute intracranial pathology. Chronic small vessel ischemic change." ASSESSMENT AND PLAN: 1. The patient's elevated troponin problems with bilateral hand numbness and substernal chest pressure when walking today as well as tongue numbness is likely due to angina symptoms. The patient's EKG does not show any acute changes, but her troponin is 5. At this point, the patient is going to be placed on heparin drip, aspirin, and beta-brenton. Transthoracic echocardiogram is going to be obtained. The patient has aortic murmur on evaluation likely due to aortic stenosis. The patient is going to be heparinized with heparin drip. Dr. Aviles will see the patient in cardiology consult in the morning. 2. In regards to the patient's acute renal failure, fractional excretion of sodium of 0.4 indicates prerenal causes. The patient does appear slightly dehydrated clinically and her BUN is elevated. At this point, the patient is going to be placed on gentle intravenous hydration. We will hold the patient's ramipril. The patient is also going to have a renal ultrasound and postvoid residual obtained. 3. In regards to the patient's hypothyroidism, she is going to be continued her daily Synthroid from home. Her TSH is within normal limits. 4. The patient has mild dementia. She is at risk of sundowning. She is going to be observed. Her BuSpar, duloxetine, and trazodone is going to be continued as at home. 5. The patient's chronic obstructive pulmonary disease is not in exacerbation. Her Advair is going to be replaced with Dulera that is in the hospital formulary for the duration of the patient's stay. 6. DVT prophylaxis: The patient is going to be on heparin drip. 7. The patient's code status is full. Her surrogate is her daughter, Chris. TIME SPENT: Approximately 65 minutes was spent on admission of this patient, more than half that time was spent [id number] with the patient during the interview and physical exam. [id number]/[facility] #: [id number] [place]
[2018-12-22] MEDS: Mometasone/Formoter 100/5 MDI INH SCH (19:58)
[2018-12-22] MEDS: Metoprolol Tartrate TAB* 25 MG PO SCH (20:18)
[2018-12-22] MEDS: Docusate CAP* 100 MG PO SCH (20:18)
[2018-12-22] MEDS: Oxybutynin TAB* 5 MG PO SCH (20:18)
[2018-12-22] MEDS ORDERED: Acetylcysteine CAP (RENAL)* 600 MG PO SCH (21:00)
[2018-12-22] MEDS ORDERED: Heparin VIAL(*) 5000 UNITS/ML VIAL (FIVE THOUSAND) SUBCUT SCH (22:00)
[2018-12-23] MEDS: Levothyroxine TAB* 75 MCG TAB PO SCH (05:33)
[2018-12-23] MEDS: Nitro 2% OINT* (Nitroglycerin) 1 INCH/PAK PAK TOPICAL SCH ×2 (05:58→12:03)
[2018-12-23] MEDS: NS 0.9% 1000 ML** 1,000 ML IV SCH (06:03)
[2018-12-23 07:54] LABS: ABS Eosinophils 0.2 10^3/ul (0-0.6); ABS Monocytes 0.7 10^3/ul (0-0.8); ABS Neutrophils 4.5 10^3/ul (1.5-7.7); Eosinophil % 3.1 %; Hematocrit 35 % (35-47); Hemoglobin 11.9 g/dL (12.0-16.0); Lymphocyte % 26.8 %; Mean Corpuscular HGB Conc 34 g/dL (31-36); Mean Corpuscular Hemoglobin 32 pg (27-31); Mean Corpuscular Volume 93 fL (80-97); Mean Platelet Volume 8.6 fL (7.4-10.4); Nucleated Red Blood Cells % 0.1; Platelet Count 205 10^3/uL (150-450); Red Blood Count 3.78 10^6 /uL (3.70-4.87); Red Cell Distribution Width 14 % (10-15); White Blood Count 7.4 10^3/uL (3.5-10.8)
[2018-12-23] MEDS: Docusate CAP* 100 MG PO SCH ×2 (08:17→20:08)
[2018-12-23] MEDS: Oxybutynin TAB* 5 MG PO SCH ×2 (08:17→20:08)
[2018-12-23] MEDS: Aspirin EC TAB* 81 MG TAB.EC PO SCH (08:17)
[2018-12-23] MEDS: Metoprolol Tartrate TAB* 25 MG PO SCH ×4 (08:17→20:09)
[2018-12-23 08:18] LABS: Anion Gap 5 mmol/L (2-11); BUN/Creatinine Ratio 16.5 (8-20); Blood Urea Nitrogen 21 mg/dL (6-24); CO2 Carbon Dioxide 25 mmol/L (22-32); Calcium 9.3 mg/dL (8.6-10.3); Chloride 110 mmol/L (101-111); Cholesterol 118 mg/dL; EGFR African American 49.4 (>60); EGFR Non-African American 40.8 (>60); Glucose 100 mg/dL (70-100); HDL Cholesterol 41.2 mg/dL; LDL Cholesterol 57 mg/dL; Potassium 4.7 mmol/L (3.5-5.0); Sodium 140 mmol/L (135-145); Triglycerides 99 mg/dL
[2018-12-23] MEDS: oxyCODONE TAB* 5 MG TAB PO PRN (08:19)
[2018-12-23] MEDS: CYANOCOBALAMIN 5000 MCG PO SCH (08:21)
[2018-12-23] MEDS: Mometasone/Formoter 100/5 MDI INH SCH ×2 (08:40→19:31)
[2018-12-23] MEDS ORDERED: DULoxetine DR CAP* 20 MG CAP.DR PO SCH (09:00)
--- NOTE | 2018-12-23 09:59 | ECHO ---
*[facility]* [place] [address] Fax #: [phone] Transthoracic Echocardiogram Patient: Shu Nagy : 1940 Study Date: 12/23/2018 Age: 78 Gender: F HR: 50 bpm Height: 64 in /162.6 cm BSA: 1.66 m^2 Weight: 135.7 lb /61.7 kg BMI: 23.3 kg/m^2 *Metal Fabricating Inspector: Jelly Payton [facility] *Referring Physician: * Chela Griffith *Reading Physician: * Brian Aviles MD Indications: Chest Pain, unspecified. Elevated TROP. History: Coronary artery disease. Chronic obstructive pulmonary disease. Risk factors: Hypertension. Diabetes mellitus. Dyslipidemia. Conclusions Summary: - Left ventricle: Systolic function is normal. The estimated ejection fraction is 55-60%. Wall motion is normal; there are no regional wall motion abnormalities. - Right ventricle: Systolic function is normal. - Mitral valve: Mobility is restricted. Systolic bowing without prolapse. The findings are consistent with moderate to severe stenosis. There is mild regurgitation. - Aortic valve: Valve mobility is restricted. The findings are consistent with mild stenosis. There is mild to moderate regurgitation. The mean systolic gradient is 16.0 mm Hg. The valve area by the velocity-time integral method is 1.50 cm^2. The valve area by the peak velocity method is 1.50 cm^2. - Tricuspid valve: There is trace regurgitation. - Pericardium, extracardiac: There is no significant pericardial effusion. - Pulmonary arteries: Systolic pressure is at the upper limits of normal. The peak pressure during systole by Doppler is 33.0 mm Hg. - Compared to study of 06/26/17, the left ventricle function is the same. The degree of Mitral Stenosis is worse. The mild is new. Study data: Transthoracic echocardiogram. Procedure: Transthoracic echocardiography was performed. Image quality was fair. Complete 2D, spectral Doppler, and color flow Doppler. Location: Bedside. Patient status: Inpatient. Patient room number: 432. Rhythm: Bradycardia. Findings Left ventricle: The cavity size is normal. Wall thickness is normal. Systolic function is normal. The estimated ejection fraction is 55-60%. Wall motion is normal; there are no regional wall motion abnormalities. Doppler parameters are consistent with abnormal left ventricular relaxation (grade 1 diastolic dysfunction). Right ventricle: The cavity size is normal. Systolic function is normal. Left atrium: The atrium is moderately dilated. Right atrium: The atrium is at the upper limits of normal in size. Mitral valve: The Mitral valve annulus appears calcified. The leaflets are mildly calcified. Mobility is restricted. Systolic bowing without prolapse. The findings are consistent with moderate to severe stenosis. There is mild regurgitation. Aortic valve: The valve is trileaflet. The leaflets are mildly thickened. Valve mobility is restricted. The findings are consistent with mild stenosis. There is mild to moderate regurgitation. Tricuspid valve: The leaflets are normal thickness. There is no evidence of stenosis. There is trace regurgitation. Pulmonic valve: Not well visualized. There is no significant regurgitation. Aorta: The aortic root appears normal. The aortic arch appears normal. Pericardium: A prominent pericardial fat pad is present. There is no significant pericardial effusion. Pulmonary arteries: Not well visualized. Systolic pressure is at the upper limits of normal. Systemic veins: Inferior vena cava: The vessel is dilated. There is (>= 50%) respiratory change in the IVC dimension. Measurements Left ventricle Value Ref Aortic valve continued Value Ref JATIN, LAX 4.6 cm 3.8 - 5.2 Mean grad, S 16.0 mm Hg ----- ESD, LAX 3.4 cm 2.2 - 3.5 Peak grad, S 30.0 mm Hg ----- FS, LAX 27 % 27 - 45 LVOT/AV, VTI ratio 0.5 ----- PW, ED, LAX (H) 1.0 cm 0.6 - 0.9 SAMMY, VTI 1.50 cm^2 ----- E', lat glenn, TDI (L) 6.0 cm/sec >=10.0 SAMMY, Vmax 1.50 cm^2 - ---- E/e', lat glenn, 26 AR peak v 3.97 m/sec ---- - TDI AR PHT 733 ms ----- E', med glenn, TDI 7.3 cm/sec >=7.0 AR peak grad 63 mm Hg - ---- E/e', med glenn, 22 TDI Mitral valve Value Ref E', avg, TDI 6.7 cm/sec Peak E 1.57 m/sec ---- - E/e', avg, TDI (H) 24 <=14 Peak A 1.72 m/sec - ---- Decel time 428 ms ----- LVOT Value Ref PHT 198 ms ----- Diam, S 2.00 cm Mean grad, D 4.0 mm Hg ----- Area 3.1 cm^2 Peak grad, D 15.0 mm Hg ----- Peak oswald, S 1.27 m/sec Peak E/A ratio 0.9 ----- VTI, S 30.0 cm MVA, PHT 1.1 cm^2 ----- Peak grad, S 6 mm Hg Mean grad, S 4 mm Hg Pulmonic valve Value Ref Peak v, S 0.73 m/sec ----- Ventricular septum Value Ref Peak grad, S 2.0 mm Hg ----- IVS, ED 0.9 cm 0.6 - 0.9 Tricuspid valve Value Ref Right ventricle Value Ref TR peak v 2.6 m/sec <=2.8 JATIN, LAX 2.6 cm Peak RV-RA grad, S 27 mm Hg ----- JATIN minor ax, A4C (H) 3.6 cm 1.9 - 3.5 mid Aortic root Value Ref Pressure, S 35 mm Hg Root diam 3.3 cm <3.9 Left atrium Value Ref Aortic arch Value Ref AP dim, ES (H) 4.10 cm 2.70 - Arch diam 2.1 cm ----- 3.80 ML dim, A4C 4.1 cm Decending aorta Value Ref SI dim, A4C 6.3 cm Antonio peak oswald 0.66 m/sec ----- Vol/bsa, ES, A/L (H) 47 ml/m^2 16 - 34 Pulmonary artery Value Ref Right atrium Value Ref Pressure, S 33.0 mm Hg ----- SI dim, ES 5.2 cm 3.4 - 5.3 ML dim, ES, A4C 4.2 cm 2.6 - 4.4 Inferior vena cava Value Ref Estimated RAP 8 mm Hg Diam 2.2 cm ----- Aortic valve Value Ref Glenn diam, ED 2.3 cm Peak v, S 2.7 m/sec VTI, S 64.0 cm Legend: (L) and (H) leslie values outside specified reference range. Prepared and electronically signed by Brian Aviles MD 12/23/2018 09:58
[2018-12-23 10:41] LABS: Troponin I 4.75 ng/mL (<0.04)
[2018-12-23] MEDS: hydrALAZINE IV* 20 MG/ML VIAL IV SLOW PU PRN (12:22)
[2018-12-23] MEDS ORDERED: NS 0.9% 1000 ML** 1,000 ML IV SCH ×2 (12:29→23:55)
--- NOTE | 2018-12-23 12:32 | PN ---
Subjective Date of Service: 12/23/18 Interval History: Patient tells me her fingers and toes are cold and tingling. She has shortness of breath today and chest pressure. Her tongue numbness is resolved. She denies abd pain but tells me there is an "uneasy feeling." Denies nausea, vomiting, neck/jaw pain. Objective Active Medications: Acetaminophen (Tylenol Tab*) 650 mg PO Q4H PRN PRN Reason: PAIN-MILD/TEMP >/= 100.4 Al Hydrox/Mg Hydrox/Simethicone (Maalox Plus*) 30 ml PO Q6H PRN PRN Reason: INDIGESTION Aspirin (Aspirin Ec Tab*) 81 mg PO DAILY [facility] Last Admin: 12/23/18 08:17 Dose: 81 mg Atorvastatin Calcium (Lipitor*) 80 mg PO 1700 [facility] Baclofen (Lioresal Tab*) 5 mg PO DAILY PRN PRN Reason: PAIN Buspirone HCl (Buspar Tab*) 7.5 mg PO TID PRN PRN Reason: ANXIETY Docusate Sodium (Colace Cap*) 100 mg PO BID [facility] Last Admin: 12/23/18 08:17 Dose: 100 mg Heparin Sodium (Porcine) (Heparin Vial(*)) 0 units IV .PER PROTOCOL [facility] Last Admin: 12/22/18 18:58 Dose: 3,700 units Hydralazine HCl (Apresoline Iv*) 5 mg IV SLOW PU Q6H PRN PRN Reason: SYSTOLIC BP GREATER THAN: Last Admin: 12/23/18 12:22 Dose: 5 mg Ceftriaxone Sodium 1 gm/ (Sodium Chloride) 50 mls @ 100 mls/hr IVPB Q24H [facility] Heparin Sodium/Dextrose (Heparin Drip 25,000 Units(*)) 25,000 units in 500 mls @ 0 mls/hr IV PER RATE [facility]; Protocol Last Admin: 12/22/18 18:58 Dose: 15 mls/hr Sodium Chloride (Ns 0.9% 1000 Ml) 1,000 mls @ 100 mls/hr IV PER RATE [facility] Last Admin: 12/23/18 06:03 Dose: 100 mls/hr Levothyroxine Sodium (Synthroid Tab*) 75 mcg PO 0600 [facility] Last Admin: 12/23/18 05:33 Dose: 75 mcg Metoprolol Tartrate (Lopressor Tab*) 12.5 mg PO BID [facility] Mometasone Furoate/Formoterol Fumar (Dulera 100/5 Mdi*) 2 puff INH BID [facility] Last Admin: 12/23/18 08:40 Dose: 2 puff Nitroglycerin (Nitroglycerin 2% Oint*) 1 inch TOPICAL 0600,1200 [facility]; Protocol Last Admin: 12/23/18 12:03 Dose: 1 inch Cyanocobalamin 5000 (Mcg) 1 dose PO DAILY [facility] Last Admin: 12/23/18 08:21 Dose: Not Given Oxybutynin Chloride (Ditropan Tab*) 5 mg PO BID [facility] Last Admin: 12/23/18 08:17 Dose: 5 mg Oxycodone HCl (Roxycodone Tab*) 10 mg PO Q8H PRN PRN Reason: PAIN - SEVERE Last Admin: 12/23/18 08:19 Dose: 10 mg Trazodone HCl (Desyrel Tab*) 100 mg PO BEDTIME PRN PRN Reason: SLEEP Vital Signs - 8 hr 12/23/18 12/23/18 12/23/18 05:58 07:15 08:00 Temperature 98.7 F 98.7 F Pulse Rate 56 54 54 Respiratory 19 20 Rate Blood Pressure 139/102 175/53 (mmHg) O2 Sat by Pulse 98 95 Oximetry 12/23/18 12/23/18 12/23/18 08:19 08:44 11:15 Temperature 99.3 F Pulse Rate 62 44 Respiratory 16 16 20 Rate Blood Pressure 173/55 (mmHg) O2 Sat by Pulse 92 97 Oximetry Oxygen Devices in Use Now: None Appearance: Thin, elderly white female, sitting on side of bed, appearing in NAD Eyes: No Scleral Icterus, PERRLA Ears/Nose/Mouth/Throat: Mucous Membranes Moist Neck: NL Appearance and Movements; NL JVP Respiratory: Symmetrical Chest Expansion and Respiratory Effort, Clear to Auscultation Cardiovascular: RRR, - - grade II systolic murmur Abdominal: - - abd soft, nontender, nondistended Extremities: No Edema, No Clubbing, Cyanosis Skin: No Rash or Ulcers Neurological: Alert and Oriented x 3, NL Muscle Strength and Tone Result Diagrams: 12/23/18 07:43 12/23/18 07:43 Microbiology and Other Data: Microbiology 12/22/18 15:07 Urine Culture - Final Urine Assess/Plan/Problems-Billing Assessment: 78 yo female with PMHx COPD, DMT2, HTN, HLD, mild dementia presents with tongue numbness and bilateral hand numbness, found to have NSTEMI. - Patient Problems (1) NSTEMI (non-ST elevated myocardial infarction) Current Visit: Yes Status: Acute Code(s): I21.4 - NON-ST ELEVATION (NSTEMI) MYOCARDIAL INFARCTION SNOMED Code(s): 53214183 Comment: -presented initially with hand and tongue numbness, now c/o shortness of breath and chest pressure -troponin initially 5.25, now has decreased to 3.61 -patient initially opting for medical management, but ultimately agrees to cardiac catheterization now that she has discussed with family. Potentially will go to [facility] tomorrow -on heparin gtt. Considering patient is now agreeable to cath tomorrow, will continue this despite troponin decreasing -continue metoprolol and statin; will restart BEATRIZ-I when RICARDO resolved -echo without wall motion abnormalities, but there is severe mitral stenosis. This will need outpatient follow up but the patient has been discharged from Dr. Santiago's practice. Depending on outcome of cardiac catheterization, will likely need f/u with [facility] if possible (2) RICARDO (acute kidney injury) Current Visit: Yes Status: Acute Code(s): N17.9 - ACUTE KIDNEY FAILURE, UNSPECIFIED SNOMED Code(s): 23129834 Comment: -improving -FeNa <1% indicating prerenal etiology -Cr 1.27 today, will continue IVF but decrease rate to 50cc/hr (3) COPD (chronic obstructive pulmonary disease) Current Visit: No Status: Chronic Code(s): J44.9 - CHRONIC OBSTRUCTIVE PULMONARY DISEASE, UNSPECIFIED SNOMED Code(s): 38851378 Comment: - No evidence of acute exacerbation. - Continue tiotropium, dual inhaler. Albuterol PRN. (4) HTN (hypertension) Current Visit: No Status: Chronic Code(s): I10 - ESSENTIAL (PRIMARY) HYPERTENSION SNOMED Code(s): 14762325 Comment: -Hypertensive to 170s multiple times today -Ordered prn IV hydralazine for SBP>160 -Patient takes quinapril at home -Will start lisinopril once RICARDO resolved -Continue metoprolol (5) Diabetes Current Visit: No Status: Chronic Code(s): E11.9 - TYPE 2 DIABETES MELLITUS WITHOUT COMPLICATIONS SNOMED Code(s): 12789837 Comment: - Diet controlled at home - BGs with good control - A1c 5.6 indicating very good control (6) Hypothyroid Current Visit: No Status: Chronic Code(s): E03.9 - HYPOTHYROIDISM, UNSPECIFIED SNOMED Code(s): 09230303 Comment: - Continue levothyroxine (7) History of seizures Current Visit: Yes Status: Acute Code(s): Z87.898 - PERSONAL HISTORY OF OTHER SPECIFIED CONDITIONS SNOMED Code(s): 078965964 Comment: -history of seizures in 2018 -previously on depakote then discontinued (8) Dementia Current Visit: Yes Status: Acute Code(s): F03.90 - UNSPECIFIED DEMENTIA WITHOUT BEHAVIORAL DISTURBANCE SNOMED Code(s): 03770145 Comment: -supportive care -daughter is assisting with decision making (9) DVT prophylaxis Current Visit: No Status: Acute Code(s): RPX8604 - SNOMED Code(s): 259144835 Comment: Heparin SubQ. (10) DNR (do not resuscitate) Current Visit: Yes Status: Acute Comment: -new decision today -MOLST updated
--- NOTE | 2018-12-23 13:30 | CONS ---
CONSULTATION REPORT: DATE OF CONSULT: 12/23/18 ATTENDING PHYSICIAN: Dr. Brian Aviles, Cardiology. PRIMARY POLICE LIEUTENANT: Dr. Haylee Santiago. PRIMARY PHYSICIAN: Dr. Bennett. REASON FOR CONSULT: Troponin elevation. CHIEF COMPLAINT: Chest pain, numbness involving right upper extremity radiating into her jaw and neck with increased falls. HISTORY OF PRESENT ILLNESS: This is a 78-year-old female patient, who historically follows with Dr. Haylee Santiago of our practice due to a notable history of rheumatic fever, coronary artery disease, aortic insufficiency, pulmonary hypertension, dementia, 3.4 cm AAA, and prior myocardial infarction. The patient states that approximately 7 to 10 days ago, she started to have increased falls. Apparently, she typically falls 1 to 3 times a week due to her left leg "giving out." She denies loss of consciousness, denies hitting her head. I personally spoke to her daughter Chris whom the patient resides with, who verifies that the patient has in fact been having increased falls in the last 7 to 10 days. Apparently, on Saturday, the patient started to complain of right upper extremity numbness to her daughter. Yesterday, after having outpatient labs drawn, she started to complain of substernal chest pain described as an ache radiating into her left arm and shoulder with associated numbness. Her daughter decided that the patient should be evaluated, thus she presented to [facility] yesterday for evaluation of chest pain. While being evaluated in the emergency department, her troponin was noted to be 5.25, her creatinine was 2.56 which upon review it appears that her baseline creatinine is around 0.6 to 0.8. Urinalysis was nitrite positive. She did undergo an abdomen and bladder ultrasound, which per radiology report, did not reveal hydronephrosis; however, there was apparently a 5-mm calculus in the lateral aspect of the right kidney. She was admitted to [address] [place] [address] for ACS, and we have been asked to see her in consultation. She was started on IV heparin therapy. IV hydration was initiated as well. She denies any recurrent episodes of chest pain since yesterday. She is currently sitting on the edge of bed with her son at her bedside. She states that in the past she would intermittently develop chest pain, however, not as severe as yesterday. The patient denies syncope, palpitation, sensation of heart racing, shortness of breath, or dizziness. Given history of vascular dementia, I did take the liberty of speaking to her daughter, Chris with the patient's permission to verify events that led to her hospitalization. Chris states that the patient did not inform her that she had chest pain on Saturday, although it is possible because she was complaining of right upper extremity numbness, and she does confirm that the patient has had increased falls in the last 7 to 10 days. She otherwise expressed concern that on occasion her mom will manipulate people to have the individual feel sorry for her and it can be sometimes difficult to obtain an accurate history. She states that the patient moved in with her in August due to being evicted from her trailer. She adds the patient is compliant with medications, although in the past she would get confused and did not know when to take medications. Last echocardiogram, according to our medical records, was on 06/25/17. Per report, LVEF 55% to 60% with moderate left ventricular hypertrophy, severe left atrial dilatation, moderate aortic insufficiency, mean aortic valve grading was 9.37. Moderate mitral regurgitation, [id number] mitral stenosis. Mean gradient across the mitral valve was 5.89. Right ventricular systolic pressure was 49 mmHg. Last ischemic evaluation, according to our medical records, is in 2013 via Lexiscan, nuclear stress test. Per report, ECG portion was nondiagnostic. There was a small stress apical defect, EF 74%, normal wall motion. PAST MEDICAL HISTORY: 1. 3.4 cm AAA. 2. Rheumatic fever. 3. Hyperlipidemia. 4. Depression. 5. GERD. 6. Prior myocardial infarction. 7. Moderate aortic insufficiency. 8. Pulmonary hypertension. 9. Dementia. 10. Zuas-bv-xubxalvb mitral stenosis. 11. Diabetes. 12. COPD. PAST SURGICAL HISTORY: Includes: 1. Hysterectomy. 2. Cholecystectomy. 3. Right renal cyst removal. 4. Lumbar laminectomy, 1985. HOME MEDICATIONS: Per admission med rec. ALLERGIES: Listed include SULFA, CODEINE, and PERCOCET. FAMILY HISTORY: Mother due to complications from lung cancer. Father had a history of cardiovascular disease. SOCIAL HISTORY: The patient is a former tobacco user, denies alcohol use. She lives at home with her daughter Chris whom I personally spoke with. She is currently a full code. She does ambulate with a cane on occasion; however, she reports frequent falls due to "her left leg giving out." REVIEW OF SYSTEMS: All systems have been reviewed and otherwise negative except as mentioned in the HPI. PHYSICAL EXAMINATION: The patient is alert and oriented x3. She is cooperative with exam, although anxious and fidgeting. She appears in no apparent distress. Her son is at her bedside. HEENT: Head is atraumatic, normocephalic. Oral mucosa is moist. Tongue is midline. Neck: Supple. Trachea midline. No JVD. No carotid bruits. Cardiac: Normal S1, S2. Regular rate and rhythm. There is a grade 2/5 diastolic aortic murmur auscultated. There is a grade 3/5 mitral murmur auscultated. No gallop or rub. Lungs: Auscultated posteriorly. No evidence of adventitious breath sounds. Respirations nonlabored. /GI: Abdomen is soft, nontender, nondistended. Normoactive bowel sounds x4. Extremities: No pedal edema. No clubbing, no cyanosis. 2+ bilateral dorsalis pedis pulses palpated bilaterally and symmetrically. Skin: Intact. No rashes or lesions or ecchymosis appreciated. Vital Signs: Temperature is 98.7, pulse 62, respirations 16, oxygenation 92% on room air, blood pressure 135/53. DIAGNOSTIC STUDIES/LAB DATA: Blood work obtained 12/23/18: White count 7.4, hemoglobin 11.9, hematocrit 35, platelets 205, INR 0.95. Chemistry from : Sodium 140, potassium 4.7, creatinine 1.27, troponin #3 is 4.75, alk phos is elevated at 170. TSH 1.8. LDL 57. Urine tox screen was positive for opiates. UA was nitrite positive. ECG from 12/23/18: Reviewed. Sinus bradycardia, rate [address] segment depression, most noticeable in the lateral leads. Repeat echocardiogram 12/22/18: Per report, LVEF 55% to 60%, normal wall motion , mwwzlouh-bi-puaagu mitral stenosis with mild mitral insufficiency, mild-to- moderate aortic insufficiency, mean aortic valve gradient was 16, trace tricuspid insufficiency. No pericardial effusion. Soham CT 12/22/18: Per radiology report, no acute intracranial pathology. Chronic small vessel ischemic change. ASSESSMENT AND PLAN: 1. Gey-BD-dfkzusnkf myocardial infarction. The patient presented with complaints of chest pain, troponin peaked upon presentation at 5.25. Her troponin has been fluctuating. Thus, we will continue to cycle. Recommend discontinuing IV heparin therapy once troponin is consistently trending down. LVEF preserved with normal wall motion, currently chest pain free, has not had any recurrence since yesterday, 12/22/18. Given history of frequent falls occurring 1 to 3 times a week, would recommend aspirin 81 mg a day, would not recommend Plavix 75 mg a day in combination due to frequent falls, which was confirmed with her daughter, Chris. She is on Lopressor therapy. We will reduce to 12.5 mg p.o. b.i.d. given relative bradycardia. Recommend continuing Lipitor 80 mg p.o. daily. I discussed the role of ischemic evaluation via cardiac catheterization or eventual Lexiscan stress test. The patient states that she is not interested in any invasive procedures. She is aware of risk of sudden cardiac . She is asking to be made DNR. She is requesting to be managed via medications. I did speak to her daughter Chris in regards to goals of care, who states that her mother makes her own medical decisions and is supportive of her mother's choice. I have reached out to the primary team and asked them to address the patient's code status. 2. Kgvrrhor-ia-fkfusy mitral stenosis. The patient is compensated. She has a history of rheumatic fever. The patient states that she wants conservative medical therapy for above #1, although would be open to having intervention for mitral stenosis. She is currently fidgeting and emotionally upset, thus we will reevaluate once her daughter Chris is here later today around 1:30 to 2:00 p.m. We would have to address her frequent fall history, however, which may limit recommendation for intervention. We will follow closely. 4. History of vascular dementia. According to her daughter Chris, the patient makes her own medical decision. She is currently a DNR. She is alert and oriented. 5. History of hypertension, on Lopressor therapy. 6. Acute renal injury. The patient did have a 5-mm calculus noted per report involving the right kidney. We will defer to primary team. UA was nitrite positive. She has been receiving IV hydration and antibiotic therapy. 7. Disposition: Pending course. The patient is DNR. I attempted to address goals of care which she opted for conservative medical management for above #1; however, she is uncertain in regards to how to proceed with nkxhwdsj-za-xcxatd mitral stenosis. Thus, we will readdress once her daughter Chris is here later today. Thank you for this kind consultation. Recommend continuing to cycle isoenzymes , continuing aspirin, statin, beta-brenton therapy. FLORIN NESS NP [id number]/[facility] #: [id number] [place]
[2018-12-23 13:37] LABS: Troponin I 3.61 ng/mL (<0.04)
[2018-12-23] MEDS: cefTRIAXone(*) 1 GM in NS 0.9% 50 ML* 50 ML IVPB SCH (14:44)
[2018-12-23] MEDS: Atorvastatin* 80 MG TAB PO SCH (15:50)
[2018-12-23] MEDS: Acetaminophen TAB* 325 MG PO PRN (20:08)
[2018-12-23] MEDS ORDERED: Nitro Patch/OINT Remove PATCH OFF SCH (20:30)
[2018-12-24] MEDS: Acetaminophen TAB* 325 MG PO PRN ×3 (04:01→16:01)
[2018-12-24] MEDS: hydrALAZINE IV* 20 MG/ML VIAL IV SLOW PU PRN (04:06)
[2018-12-24] MEDS: Nitro 2% OINT* (Nitroglycerin) 1 INCH/PAK PAK TOPICAL SCH ×2 (04:42→11:16)
[2018-12-24] MEDS: Levothyroxine TAB* 75 MCG TAB PO SCH (04:45)
[2018-12-24] MEDS ORDERED: hydrALAZINE IV* 20 MG/ML VIAL IV SLOW PU ONE (05:23)
[2018-12-24] MEDS ORDERED: Nitroglycerin TAB 0.4 MG* 0.4 MG TAB SL ONE (05:41)
[2018-12-24] MEDS ORDERED: Morphine INJ* 2 MG/ML 1 ML SYRINGE (TWO MG - NEW SYRINGE VERSION) IV PRN (05:44)
[2018-12-24] MEDS: Mometasone/Formoter 100/5 MDI INH SCH (07:46)
[2018-12-24] MEDS: Heparin VIAL(*) 5000 UNITS/ML VIAL (FIVE THOUSAND) IV SCH (08:35)
[2018-12-24 08:36] LABS: Blood Urea Nitrogen 14 mg/dL (6-24); EGFR African American 80.7 (>60); EGFR Non-African American 66.7 (>60)
[2018-12-24 09:06] LABS: Troponin I 2.77 ng/mL (<0.04)
[2018-12-24] MEDS: Aspirin EC TAB* 81 MG TAB.EC PO SCH (09:33)
[2018-12-24] MEDS: Docusate CAP* 100 MG PO SCH (09:33)
[2018-12-24] MEDS: Oxybutynin TAB* 5 MG PO SCH (09:34)
[2018-12-24] MEDS: Metoprolol Tartrate TAB* 25 MG PO SCH (10:04)
[2018-12-24] MEDS: CYANOCOBALAMIN 5000 MCG PO SCH (10:04)
--- NOTE | 2018-12-24 10:21 | PN ---
<Adele Rene - Last Filed: 12/24/18 10:48> Subjective Date of Service: 12/24/18 - NSTEMI, severe MS Interval History: Patient states she felt as though she was going to last night. She adds she did have chest pain but since. Denies SOB, dizziness, palpitations or chest pain at this time. She is anxious and is asking what the plan is. She states she has changed her mind and would like to proceed with cardiac catheterization. Medications Active Medications: Acetaminophen (Tylenol Tab*) 650 mg PO Q4H PRN PRN Reason: PAIN-MILD/TEMP >/= 100.4 Last Admin: 12/24/18 04:01 Dose: 650 mg Al Hydrox/Mg Hydrox/Simethicone (Maalox Plus*) 30 ml PO Q6H PRN PRN Reason: INDIGESTION Aspirin (Aspirin Ec Tab*) 81 mg PO DAILY [facility] Last Admin: 12/24/18 09:33 Dose: 81 mg Atorvastatin Calcium (Lipitor*) 80 mg PO 1700 [facility] Last Admin: 12/23/18 15:50 Dose: 80 mg Baclofen (Lioresal Tab*) 5 mg PO DAILY PRN PRN Reason: PAIN Last Admin: 12/24/18 07:20 Dose: 5 mg Buspirone HCl (Buspar Tab*) 7.5 mg PO TID PRN PRN Reason: ANXIETY Last Admin: 12/24/18 09:33 Dose: 7.5 mg Docusate Sodium (Colace Cap*) 100 mg PO BID [facility] Last Admin: 12/24/18 09:33 Dose: 100 mg Heparin Sodium (Porcine) (Heparin Vial(*)) 0 units IV .PER PROTOCOL [facility] Last Admin: 12/24/18 08:35 Dose: 1,850 units Hydralazine HCl (Apresoline Iv*) 5 mg IV SLOW PU Q6H PRN PRN Reason: SYSTOLIC BP GREATER THAN: Last Admin: 12/24/18 04:06 Dose: 5 mg Ceftriaxone Sodium 1 gm/ (Sodium Chloride) 50 mls @ 100 mls/hr IVPB Q24H [facility] Last Admin: 12/23/18 14:44 Dose: 100 mls/hr Sodium Chloride (Ns 0.9% 1000 Ml) 1,000 mls @ 75 mls/hr IV PER RATE [facility] Last Admin: 12/24/18 09:35 Dose: 75 mls/hr Levothyroxine Sodium (Synthroid Tab*) 75 mcg PO 0600 [facility] Last Admin: 12/24/18 04:45 Dose: 75 mcg Metoprolol Tartrate (Lopressor Tab*) 12.5 mg PO BID [facility] Last Admin: 12/24/18 10:04 Dose: Not Given Mometasone Furoate/Formoterol Fumar (Dulera 100/5 Mdi*) 2 puff INH BID [facility] Last Admin: 12/24/18 07:46 Dose: Not Given Morphine Sulfate (Morphine Inj (Syringe))*) 2 mg IV Q4H PRN PRN Reason: PAIN - MILD Nitroglycerin (Nitroglycerin 2% Oint*) 1 inch TOPICAL 0600,1200 [facility]; Protocol Last Admin: 12/24/18 04:42 Dose: 1 inch Cyanocobalamin 5000 (Mcg) 1 dose PO DAILY [facility] Last Admin: 12/24/18 10:04 Dose: Not Given Oxybutynin Chloride (Ditropan Tab*) 5 mg PO BID [facility] Last Admin: 12/24/18 09:34 Dose: 5 mg Oxycodone HCl (Roxycodone Tab*) 10 mg PO Q8H PRN PRN Reason: PAIN - SEVERE Last Admin: 12/23/18 08:19 Dose: 10 mg Pharmacy Profile Note (Nitro Patch/Oint Remove*) 1 note PATCH OFF 1999 [facility] Last Admin: 12/23/18 20:29 Dose: 1 patch Trazodone HCl (Desyrel Tab*) 100 mg PO BEDTIME PRN PRN Reason: SLEEP Objective Vital Signs: Temp Pulse Resp BP Pulse Ox 97.7 F 64 16 128/92 98 12/24/18 08:00 12/24/18 08:00 12/24/18 08:00 12/24/18 08:00 12/24/18 08:00 Oxygen Devices in Use Now: None Appearance: sitting on edge of bed, NAD, A+ O x3, anxious but cooperative. Ears/Nose/Mouth/Throat: NL Teeth, Lips, Gums, Clear Oropharnyx, Mucous Membranes Moist Neck: NL Appearance and Movements; NL JVP, Trachea Midline Respiratory: Symmetrical Chest Expansion and Respiratory Effort, Clear to Auscultation Cardiovascular: - - Normal S1, S2, RRR, + aortic and mitral murmur Extremities: No Edema Skin: No Rash or Ulcers Neurological: Alert and Oriented x 3 Lines/Tubes/Other Access: Clean, Dry and Intact Peripheral IV Laboratory Results: 12/23/18 07:43 12/24/18 08:04 INR (Anticoag Therapy) 0.95 (0.82-1.09) 12/22/18 14:30 APTT 50.3 seconds (26.0-38.0) H 12/24/18 08:04 Total Bilirubin 0.50 mg/dL (0.2-1.0) 12/22/18 14:31 AST 30 U/L (13-39) 12/22/18 14:31 ALT 39 U/L (7-52) 12/22/18 14:31 Alkaline Phosphatase 170 U/L (34-104) H 12/22/18 14:31 CK-MB (CK-2) 6.8 ng/mL (0.6-6.3) H 12/22/18 14:31 Total Protein 7.0 g/dL (6.4-8.9) 12/22/18 14:31 Albumin 3.7 g/dL (3.2-5.2) 12/22/18 14:31 Globulin 3.3 g/dL (2-4) 12/22/18 14:31 Albumin/Globulin Ratio 1.1 (1-3) 12/22/18 14:31 Triglycerides 99 mg/dL 12/23/18 07:43 Cholesterol 118 mg/dL 12/23/18 07:43 LDL Cholesterol 57 mg/dL 12/23/18 07:43 HDL Cholesterol 41.2 mg/dL 12/23/18 07:43 TSH 1.88 mcIU/mL (0.34-5.60) 12/22/18 14:30 12/22/18 12/22/18 12/23/18 14:31 18:00 07:43 Troponin I 5.25 H* 4.20 H* 4.75 H* 12/23/18 12/24/18 13:01 08:04 Troponin I 3.61 H* 2.77 H* Laboratory Results - last 24 hr 12/23/18 12/23/18 12/23/18 07:43 07:43 13:01 APTT BUN Creatinine Est GFR ( Amer) Est GFR (Non-Af Amer) Hemoglobin A1c 5.6 Troponin I 4.75 H* 3.61 H* 12/23/18 12/23/18 12/24/18 13:01 19:42 01:43 APTT 33.5 98.9 H 57.5 H BUN Creatinine Est GFR ( Amer) Est GFR (Non-Af Amer) Hemoglobin A1c Troponin I 12/24/18 12/24/18 08:04 08:04 APTT 50.3 H BUN 14 Creatinine 0.83 Est GFR ( Amer) 80.7 Est GFR (Non-Af Amer) 66.7 Hemoglobin A1c Troponin I 2.77 H* Diagnostic Imaging: *[facility]* [place] [address] Fax #: [phone] Transthoracic Echocardiogram Patient: Shu Nagy : 1940 Study Date: 12/23/2018 Age: 78 Gender: F HR: 50 bpm Height: 64 in /162.6 cm BSA: 1.66 m^2 Weight: 135.7 lb /61.7 kg BMI: 23.3 kg/m^2 *Poly Area Supervisor: Jelly Payton [facility] *Referring Physician: Chela Foley *Reading Physician: * Brian Aviles MD Indications: Chest Pain, unspecified. Elevated TROP. History: Coronary artery disease. Chronic obstructive pulmonary disease. Risk factors: Hypertension. Diabetes mellitus. Dyslipidemia. Conclusions Summary: - Left ventricle: Systolic function is normal. The estimated ejection fraction is 55-60%. Wall motion is normal; there are no regional wall motion abnormalities. - Right ventricle: Systolic function is normal. - Mitral valve: Mobility is restricted. Systolic bowing without prolapse. The findings are consistent with moderate to severe stenosis. There is mild regurgitation. - Aortic valve: Valve mobility is restricted. The findings are consistent with mild stenosis. There is mild to moderate regurgitation. The mean systolic gradient is 16.0 mm Hg. The valve area by the velocity-time integral method is 1.50 cm^2. The valve area by the peak velocity method is 1.50 cm^2. - Tricuspid valve: There is trace regurgitation. - Pericardium, extracardiac: There is no significant pericardial effusion. This report is only to be considered final once signed by the Provider(s) as displayed in the "<Electronically Signed by >" field (s). Absence of a signature indicates the report is in a draft status and still needs to be finalized. In the event this document was created by someone other than the signing Provider, the individual initiating the document will be listed in the "Entered by:" or "Dictated by:" sanchez. EKG Data: ECG 12/24/2018; Sinus bradycardia rate [address] depression (minimal) but most noticeably in lateral leads. Telemetry reviewed; Sinus rhythm rate 50-60's with periods of bradycardia in high 30's while awake Assessment/Plan #1 NSTEMI; possibly related to severe MS. Troponin peaked at presentation 5.25 and has continued to trend down. Will discontinue IV heparin therapy. Continue ASA 81/day, Lopressor 12.5mg BID and Lipitor therapy. She is now agreeable to cardiac cath. I personally reviewed with her indication, risk versus benefit including but not limited to; bleeding, vessel damage, infection, CVA, [place], , requirement of DAPT, possible referral for CABG, contrast induced nephropathy. She is agreeable to proceeding. Will discuss case with wet process assistant head miller Dr. Calvin. #2 h/o Rheumatic fever as a child with now moderate to severe MS; likely contributing to symptoms. appears compensated on exam. Will speak with Dr. Santiago about adding ACEI now that renal function is normal. #3 acute renal injury; resolved with IV hydration. There was a 5mm right renal calculi noted on imaging. Reviewed with primary team. no hydronephrosis. Will need outpatient follow up. #4 Disposition pending course. Patient now full code. Will follow closely. Attending: Haylee Santiago <Haylee Santiago - Last Filed: 12/24/18 12:47> Medications Active Medications: Acetaminophen (Tylenol Tab*) 650 mg PO Q4H PRN PRN Reason: PAIN-MILD/TEMP >/= 100.4 Last Admin: 12/24/18 11:16 Dose: 650 mg Al Hydrox/Mg Hydrox/Simethicone (Maalox Plus*) 30 ml PO Q6H PRN PRN Reason: INDIGESTION Aspirin (Aspirin Ec Tab*) 81 mg PO DAILY [facility] Last Admin: 12/24/18 09:33 Dose: 81 mg Atorvastatin Calcium (Lipitor*) 80 mg PO 1700 [facility] Last Admin: 12/23/18 15:50 Dose: 80 mg Baclofen (Lioresal Tab*) 5 mg PO DAILY PRN PRN Reason: PAIN Last Admin: 12/24/18 07:20 Dose: 5 mg Buspirone HCl (Buspar Tab*) 7.5 mg PO TID PRN PRN Reason: ANXIETY Last Admin: 12/24/18 09:33 Dose: 7.5 mg Docusate Sodium (Colace Cap*) 100 mg PO BID [facility] Last Admin: 12/24/18 09:33 Dose: 100 mg Heparin Sodium (Porcine) (Heparin Vial(*)) 0 units IV .PER PROTOCOL [facility] Last Admin: 12/24/18 08:35 Dose: 1,850 units Hydralazine HCl (Apresoline Iv*) 5 mg IV SLOW PU Q6H PRN PRN Reason: SYSTOLIC BP GREATER THAN: Last Admin: 12/24/18 04:06 Dose: 5 mg Ceftriaxone Sodium 1 gm/ (Sodium Chloride) 50 mls @ 100 mls/hr IVPB Q24H [facility] Last Admin: 12/23/18 14:44 Dose: 100 mls/hr Sodium Chloride (Ns 0.9% 1000 Ml) 1,000 mls @ 75 mls/hr IV PER RATE [facility] Last Admin: 12/24/18 09:35 Dose: 75 mls/hr Levothyroxine Sodium (Synthroid Tab*) 75 mcg PO 0600 [facility] Last Admin: 12/24/18 04:45 Dose: 75 mcg Metoprolol Tartrate (Lopressor Tab*) 12.5 mg PO BID [facility] Last Admin: 12/24/18 10:04 Dose: Not Given Mometasone Furoate/Formoterol Fumar (Dulera 100/5 Mdi*) 2 puff INH BID [facility] Last Admin: 12/24/18 07:46 Dose: Not Given Morphine Sulfate (Morphine Inj (Syringe))*) 2 mg IV Q4H PRN PRN Reason: PAIN - MILD Nitroglycerin (Nitroglycerin 2% Oint*) 1 inch TOPICAL 0600,1200 [facility]; Protocol Last Admin: 12/24/18 11:16 Dose: 1 inch Cyanocobalamin 5000 (Mcg) 1 dose PO DAILY [facility] Last Admin: 12/24/18 10:04 Dose: Not Given Oxybutynin Chloride (Ditropan Tab*) 5 mg PO BID [facility] Last Admin: 12/24/18 09:34 Dose: 5 mg Oxycodone HCl (Roxycodone Tab*) 10 mg PO Q8H PRN PRN Reason: PAIN - SEVERE Last Admin: 12/23/18 08:19 Dose: 10 mg Pharmacy Profile Note (Nitro Patch/Oint Remove*) 1 note PATCH OFF 1999 [facility] Last Admin: 12/23/18 20:29 Dose: 1 patch Trazodone HCl (Desyrel Tab*) 100 mg PO BEDTIME PRN PRN Reason: SLEEP Objective Vital Signs: Temp Pulse Resp BP Pulse Ox 97.7 F 64 16 128/92 98 12/24/18 08:00 12/24/18 08:00 12/24/18 08:00 12/24/18 08:00 12/24/18 08:00 Laboratory Results: 12/23/18 07:43 12/24/18 08:04 INR (Anticoag Therapy) 0.95 (0.82-1.09) 12/22/18 14:30 APTT 50.3 seconds (26.0-38.0) H 12/24/18 08:04 Total Bilirubin 0.50 mg/dL (0.2-1.0) 12/22/18 14:31 AST 30 U/L (13-39) 12/22/18 14:31 ALT 39 U/L (7-52) 12/22/18 14:31 Alkaline Phosphatase 170 U/L (34-104) H 12/22/18 14:31 CK-MB (CK-2) 6.8 ng/mL (0.6-6.3) H 12/22/18 14:31 Total Protein 7.0 g/dL (6.4-8.9) 12/22/18 14:31 Albumin 3.7 g/dL (3.2-5.2) 12/22/18 14:31 Globulin 3.3 g/dL (2-4) 12/22/18 14:31 Albumin/Globulin Ratio 1.1 (1-3) 12/22/18 14:31 Triglycerides 99 mg/dL 12/23/18 07:43 Cholesterol 118 mg/dL 12/23/18 07:43 LDL Cholesterol 57 mg/dL 12/23/18 07:43 HDL Cholesterol 41.2 mg/dL 12/23/18 07:43 TSH 1.88 mcIU/mL (0.34-5.60) 12/22/18 14:30 12/22/18 12/22/18 12/23/18 14:31 18:00 07:43 Troponin I 5.25 H* 4.20 H* 4.75 H* 12/23/18 12/24/18 13:01 08:04 Troponin I 3.61 H* 2.77 H* Assessment/Plan I saw the patient with her family and examined her. The patient's initial symptoms were Saturday, c/o RUE and tongue numbness, this has improved but not resolved. She thinks she "passed out" on the weekend as she woke up w/o TV on, can't remember what happened after she got in bed. The patient's chest pressure occurred Saturday morning, sometime after she was up from bed, feels like someone sitting on her chest. This continues to wax and wain. No hx orthopnea or PND. Per daughter who she lives with the patient was pale on the weekend, tearful, ( declined ED at that time). The daughter states she has been taking all her medications regularly. 1-2+ carotids, ref. HS vs bruits. Clear lungs. S1S2 regular, 1/6 SM RUSB, 2/6 SM apex, no diastolic murmur, not optimally examined for MS with family in the room and roomates family, nurses, noisy. Abd: soft, normal BS, no hepatomegally. 1-2+ femoral pulses, no bruits, no lower extremity edema. 2018 cervical films: severe formaminal narrowing C3-4 2016 carotids: no critical disease, < 50%. Renal US 2016: simple cyst, otherwise unremarkable. 2019: Renal stone now noted. As above, 78 yo presented with 2 days of arm and tongue numbness, acute onset of chest heaviness w/minimal exertion. Elevated troponins, unremakable ECG findings. CK, SGOT wnl. NSTEMI-possibly recent not accute and CAD risks. Rheumatic heart disease with mod-sev MS but normal PA pressures on echo. For elevated troponins w/anginal symptoms and CAD risks I recommend cath, stent PRN. For valvular heart disease, after cath can evaluate further with stress testing looking at functional ability, PA pr rest/stress, ARLEN. Neuro c/o: ?anginal equiv. ?from Cervical disease ? doubt TIA, but also in the differential.
[2018-12-24] MEDS ORDERED: fentaNYL* 50 MCG/ML 2 ML VIAL (100 MCG VIAL) ONE (13:07)
[2018-12-24] MEDS ORDERED: Midazolam* 1 MG/ML 5 ML VIAL (5 MG) ONE (13:07)
[2018-12-24] MEDS ORDERED: VERAPAMIL 2.5 MG/ML 2 ML VIAL ** 5 mg/2 ml ONE (13:08)
[2018-12-24] MEDS ORDERED: Iohexol 350 (CONTRAST) 200 ML MDV IV ONE ×2 (13:08→13:09)
[2018-12-24] MEDS ORDERED: Heparin 2 UNITS/ML IVPREMIX* 2,000 ML IV ONE (13:08)
[2018-12-24] MEDS ORDERED: Heparin(*) 1000 UNIT/ML 10 ML VIAL CATH LAB IV ONE (13:08)
[2018-12-24] MEDS ORDERED: nitroGLYCERIN DRIP* 25,000 MCG/250 ML BTL ONE ×2 (13:08→13:58)
[2018-12-24] MEDS ORDERED: Lidocaine 1% INJ* 10 MG/ML 30 ML SDV ONE (13:08)
[2018-12-24] MEDS ORDERED: Iodixanol 320 (CONTRAST) 100 ML SDV ONE (13:09)
[2018-12-24] MEDS ORDERED: Heparin VIAL(*) 5000 UNITS/ML VIAL (FIVE THOUSAND) IV PRN (14:43)
[2018-12-24] MEDS ORDERED: Heparin DRIP 25,000 UNITS(*) 25,000 UNITS/500 ML BAG ONE (14:56)
[2018-12-24] MEDS: Heparin DRIP 25,000 UNITS(*) 25,000 UNITS/500 ML BAG IV SCH (15:05)
--- NOTE | 2018-12-24 15:12 | PN ---
Cardiology Progress Note Date of Service: 12/24/18 - CC: Chest pressure, elevated troponins Cardiac catheterization showed 3V CAD- prelim report: -Large Dx off LAD 85% -Subtotal occluded Cx, proximal at bifurcation -Long area of occlusion PDA Plan: Resume heparin for subtal PDA. Transfer to center with CABG ability and pt may need intervention for MS as well. CD's of echo/cath being made. Transfer center contacted for [facility].
[2018-12-24 15:32] LABS: Activated Partial Thrombo Time 97.5 seconds (26.0-38.0); INR 1.06 (0.82-1.09)
[2018-12-24] MEDS: cefTRIAXone(*) 1 GM in NS 0.9% 50 ML* 50 ML IVPB SCH (15:53)
[2018-12-24] MEDS: oxyCODONE TAB* 5 MG TAB PO PRN (16:00)
[2018-12-24] MEDS: Atorvastatin* 80 MG TAB PO SCH (16:01)
[2018-12-24] MEDS ORDERED: NS 0.9% 1000 ML** 1,000 ML IV SCH (16:30)
[2018-12-24] MEDS ORDERED: nitroGLYCERIN DRIP* 25,000 MCG/250 ML BTL IV SCH ×2 (17:00)
--- NOTE | 2018-12-24 17:02 | CATH ---
CC: Dr. Haylee Santiago, [facility]; Ashleigh Bennett MD, the patient' s family doctor.* CARDIAC CATHETERIZATION REPORT: DATE OF PROCEDURE: 12/24/18 - ROOM #ICU-04 INDICATION FOR THE PROCEDURE: Asked by Dr. Haylee Santiago to perform diagnostic coronary arteriography in light of the patient with abnormal cardiac enzymes, history of chest discomfort with reported severe mitral stenosis on recent echocardiogram by Dr. Brian Aviles. PROCEDURE: Coronary arteriography. CONSENT: The patient was interviewed and examined on the floor of the hospital , where the risks and benefits were explained. She understood them and wished to proceed. APPROACH UTILIZED: The right radial artery was assessed for size and found to be acceptable and as such, this was the approach utilized. EQUIPMENT UTILIZED: 1. Right radial artery sheath - a 6-Turkish Glidesheath Slender. 2. Diagnostic coronary catheters included a 5-Turkish TIG4 catheter and a 5- Turkish FL 3.5 curved catheter. 3. The diagnostic guide wires included a Sanderson 260 length and a Wholey 145 length to traverse the proximal forearm area into the upper arm. 4. The closure device utilized was a regular length Vasc Band closure device. PRE-CARDIAC CATHETERIZATION LABORATORY RESULTS: Hemoglobin and hematocrit of 11.9 and 35 with a platelet count of 205,000. BUN and creatinine were 14 and 0.83. Sodium 140, potassium 4.7, chloride 110, bicarb 25. The last troponin was 2.77. MEDICATIONS GIVEN: Right radial artery cocktail including 300 units of heparin , 300 mcg of nitroglycerin and 3 mg of verapamil. The patient received 0.5 mg of Versed IV. The patient received Xylocaine 1% locally in the right radial artery area. DESCRIPTION OF PROCEDURE: The patient was brought to the cardiovascular laboratory where a formal time-out was performed. She was prepped and draped in a sterile fashion and under ultrasound guidance, the right radial artery was cannulated and a sheath was placed. A Wholey wire was utilized to negotiate mild tortuosity in the proximal forearm into the biceps area. Coronary arteriography was performed initially utilizing the TIG4 catheter. In order to get better injections into the left coronary artery, a 5-Turkish FL3.5 curved catheter was utilized. Following this, the catheter and sheath were removed and hemostasis was obtained with a Vasc Band. Because of significant hypertension, intravenous nitroglycerin was started and advanced as needed for blood pressure control. The total contrast used was 100 cc of Visipaque dye. The radiation exposure included 5.9 minutes of fluoro time. The air kerma was 1280 milligray. The DAP radiation was 7772 microgray per meter squared. RESULTS: CORONARY ARTERIOGRAPHY: A. Left coronary artery: 1. Left main - the left main into the LAD and proximal circumflex had a significant calcification. There was a mild 15% to 20% narrowing in the distal left main. 2. Left anterior descending artery - the proximal left anterior descending artery had calcifications seen. Around the area of the first septal military source operations specialist, the left anterior descending artery in its worse view appeared to have a 65% narrowing noted. Of note, this was the takeoff of the second diagonal branch. The first diagonal branch bifurcated into a lateral and medial branch. There was a 85% lesion with calcium seen prior to the bifurcation. Of note, the lateral branch past the bifurcation had significant disease with an area of narrowing noted to be as much as 75% to 80%. The second diagonal branch was a smaller caliber vessel with a mid narrowing of 70% . The artery trifurcated along its course, but was somewhat small in caliber, perhaps at most 1.7 mm. The continuation of the left anterior descending artery did not have significant disease. 3. Circumflex artery - a nondominant vessel supplying perhaps a thin first obtuse marginal branch followed by a second thin obtuse marginal branch, which could not be fully assessed as it occurred in the span of a critical 95% to 99% lesion with TIMI2 flow down the rest of the circumflex. The caliber of the vessel here was at most 2 mm. The rest of the circumflex could not be well assessed due to the critical stenosis seen in its mid portion. The artery may be larger in caliber in its distal portion. B. Right coronary artery - a dominant vessel supplying a large acute marginal branch, which traversed supplying the [id number] inferior wall. The artery then continued on the inferior surface supplying a small posterior descending artery and 2 posterior left ventricular branches, the first of which was larger than the second. Of note, in the distal portion of the vessel prior to the posterior descending artery, there was a long diffusely diseased segment , which in AP cranial view had narrowing as much as 80% seen. It was a long length of diffuse disease. OVERALL ASSESSMENT: Significant multivessel disease involving the first diagonal branch, the proximal LAD with a borderline significant lesion as well as a high- grade caliber lesion in the mid circumflex of a small caliber vessel. The distal right coronary artery had a long diffusely diseased segment. This information was shared with Dr. Haylee Santiago, the primary computer networking instructor who involve with the case. Given these findings, potential options of coronary artery bypass with potential mitral valve replacement if it is deemed critical is clearly one option versus high risk multivessel coronary artery disease and calcified arteries. The patient will be assessed for transfer to a tertiary center to explore these options. [id number]/CPS #: [id number] MTDD
[2018-12-24 18:10] VITALS: BP 149/75
--- NOTE | 2018-12-24 19:23 | TRS ---
AMENDED REPORT NOW INCLUDES DESIGNATED COSIGNER - ESIGNED BEFORE ADJUSTMENT CC: Dr. Martha Bennett * TRANSFER SUMMARY: DATE OF ADMISSION: 12/22/18 DATE OF TRANSFER: 12/24/18 ATTENDING PHYSICIAN WHILE IN THE HOSPITAL: Dr. Geraldine Jordan * (dictated by DALIA Munoz) PRIMARY CARE PHYSICIAN: Dr. Martha Bennett in [place], [place]. CONSULTING CARDIOLOGY SERVICE PROVIDERS: Adele Rene NP, Dr. Brian Aviles, Dr. Haylee Santiago. COMMISSIONS MANAGER: Dr. Jake Manning. PRIMARY DIAGNOSES: 1. Jof-[id number]-vyyuzhqrx myocardial infarction. 2. Three-vessel coronary artery disease per cardiac catheterization. 3. Prerenal acute kidney injury, resolved. SECONDARY DIAGNOSES: 1. Mild dementia. 2. Diet controlled diabetes mellitus, type 2. 3. Chronic obstructive pulmonary disease, not on oxygen at home. 4. Status post melanoma excision. 5. Dyslipidemia. 6. Hypertension. 7. Hypothyroidism. 8. Gastroesophageal reflux disease. 9. Diagnosis of seizures in 2018, not currently on medication. 10. Severe mitral stenosis. PROCEDURES WHILE IN THE HOSPITAL: Cardiac catheterization on 12/24/[address] Jake Calvin. STUDIES WHILE IN THE HOSPITAL: 1. Echocardiogram on 12/23/18 demonstrated severe mitral valve stenosis. 2. Renal ultrasound on 12/22/18 demonstrates a 5-mm calculous in the right kidney, which is nonobstructing. No hydronephrosis bilaterally. SIGNIFICANT LAB DATA: Troponin on 12/22/18, 5.25. Troponin on 12/24/18 at 0804 , 2.77. Creatinine on 12/22/18, 2.56. Creatinine on 12/24/18, 0.83. HISTORY OF PRESENT ILLNESS/HOSPITAL COURSE: Shu Nagy is a 78-year-old white female with a past medical history significant for hypertension, hyperlipidemia , diabetes mellitus type 2, who presented to emergency department on 12/22/18 complaining of tongue numbness and bilateral hand numbness. Please see admitting history and physical by Dr. Chela Griffith for further information. Ultimately, the patient was found to have a troponin of 5.25. The patient was deemed to be having NSTEMI given that her EKG was without changes initially. On date of transfer, her EKG continues to be without EKG changes. The patient was started on a heparin drip. Cardiology was consulted and discussed mitral valve findings as well as the likely coronary artery disease findings and the patient was quite anxious at this time and was refusing cardiac catheterization. At that time she preferred to proceed with medical management only. Later in that day, the patient did become less anxious and was open to the possibility of heart surgery to repair her mitral valve and upon further discussion with her family was then open to cardiac catheterization. Heparin drip was continued at this time. The day before cardiac catheterization, the patient was complaining of shortness of breath and chest heaviness. Heparin drip was continued until hours leading up before the cardiac catheterization on 12/24/18. Dr. Calvin performed the catheterization, which found extensive disease. Please see cardiac catheterization report for further details. Regarding the patient's acute kidney injury, this improved with normal saline and ultimately this resolved. I do not believe this is related to the 5-mm calculus in the right kidney. This is nonobstructing and there is no hydronephrosis. The patient did have fractional excretion of sodium measured, which was 0.4 indicating prerenal cause. Her home BEATRIZ inhibitor was held. Additionally, during the hospital stay, the patient was hypertensive with systolic blood pressure of 170s at times and was overall managed with p.r.n. hydralazine, however, after cardiac catheterization, she was started on nitroglycerin drip, in addition to her heparin drip, which was restarted after catheterization. PHYSICAL EXAMINATION ON THE DAY OF TRANSFER: General: Elderly female lying upright in the hospital bed in ICU, appearing comfortable in no acute distress. HEENT: Eyes: PERRL. Sclerae anicteric. ENT: Mucous membranes moist. Neck: Supple without JVD. Cardio: Regular rate and rhythm with grade 2 systolic murmur appreciated. Lungs: Clear to auscultation throughout. Abdomen: Soft, nontender, nondistended. Extremities: No clubbing, cyanosis, edema, or calf tenderness. Neuro: The patient is alert and oriented x3. No focal deficits. Able to move all extremities. Psych: The patient is pleasant and cooperative. TRANSFER PLAN: DISPOSITION: The patient is being transferred to a higher level care at [facility]. Admitting provider is Dr. Paco Bradley of the cardiology service. CDs of the cardiac catheterization report will be sent. The patient is being transferred via [facility] ambulance. Upon discharge from [facility], the patient should be advised to follow up with her primary care provider regarding the incidental finding of the right-sided nephrolithiasis. ACTIVE MEDICATIONS: 1. Acetaminophen 650 mg p.o. q.4 hours p.r.n. pain. 2. Aspirin 81 mg p.o. daily. 3. Lipitor 80 mg p.o. daily. 4. Baclofen 5 mg daily p.o. daily p.r.n. pain. 5. BuSpar 7.5 mg p.o. t.i.d. p.r.n. anxiety. 6. Colace 100 mg p.o. b.i.d. scheduled. 7. Heparin drip 25,000 units in 500 mL per protocol, most recent rate is 80 mL per hour (patient to receive in transit). 8. Hydralazine 5 mg IV q.6 hours p.r.n. systolic blood pressure above 160. 9. Synthroid 75 mcg p.o. q.a.m. 10. Metoprolol tartrate 12.5 mg p.o. b.i.d. 11. Dulera 2 puffs inhaled b.i.d. 12. Morphine 2 mg IV q.4 hours p.r.n. severe pain. 13. Nitroglycerin ointment 1 inch topically at 0600 and 1200. 14. Nitroglycerin drip 25,000 mcg in 250 mL at 7.2 mL per hour with goal systolic blood pressure of 130 to 149 (patient to receive in transit). 15. Cyanocobalamin 5000 mcg p.o. daily. 16. Oxybutynin 5 mg p.o. b.i.d. 17. Oxycodone 10 mg p.o. q.8 hours p.r.n. moderate pain. 18. Trazodone 100 mg p.o. at bedtime p.r.n. insomnia. 19. Normal saline 0.9% IV at 100cc/hour continuously (patient to receive in transit). CONDITION ON DISCHARGE: Stable. TIME SPENT: Approximately 30 minutes was spent on this discharge, approximately half time was spent at bedside discussing the plan with the patient and evaluating the patient. DALIA MUNOZ [id number]/[facility] #: [id number] [facility] HOSPITALJuancho
== END 2018-12-24 19:10 | disposition short-term general hospital (02) | DRG 281 ==
LOC: ED 12:32 → MEDTELE 17:11 → ICU 12-24 16:03
PROVIDERS: ADMIT Internal Medicine; ATTEND Internal Medicine
PROC: B211YZZ Fluoroscopy of Multiple Coronary Arteries using Other Contrast (ICD-10-PCS; principal; 2018-12-24 13:30)
DX: I21.4 Non-ST elevation (NSTEMI) myocardial infarction (principal); N17.9 Acute kidney failure, unspecified; I02.0 Rheumatic chorea with heart involvement; J44.9 Chronic obstructive pulmonary disease, unspecified; I10 Essential (primary) hypertension; E78.5 Hyperlipidemia, unspecified; E03.9 Hypothyroidism, unspecified; K21.9 Gastro-esophageal reflux disease without esophagitis; F01.50 Vascular dementia, unspecified severity, without behavioral disturbance, psychotic disturbance, mood disturbance, and anxiety; E11.9 Type 2 diabetes mellitus without complications; Z66 Do not resuscitate; I25.10 Atherosclerotic heart disease of native coronary artery without angina pectoris; I71.4 Abdominal aortic aneurysm, without rupture; I27.20 Pulmonary hypertension, unspecified; I05.0 Rheumatic mitral stenosis; Z85.820 Personal history of malignant melanoma of skin; Z79.1 Long term (current) use of non-steroidal anti-inflammatories (NSAID); Z79.899 Other long term (current) drug therapy; Z82.49 Family history of ischemic heart disease and other diseases of the circulatory system; Z80.1 Family history of malignant neoplasm of trachea, bronchus and lung; I25.2 Old myocardial infarction; Z88.5 Allergy status to narcotic agent; Z88.2 Allergy status to sulfonamides; Z88.8 Allergy status to other drugs, medicaments and biological substances; Z87.891 Personal history of nicotine dependence
CPT/HCPCS: 36415; 70450; 71045; 76770; 80048; 80053; 80061; 80307; 80320; 81003; 81015; 82306; 82550; 82553; 82565; 82570; 82607; 82746; 83036; 83605; 83721; 83735; 84300; 84443; 84484; 84520; 85025; 85347; 85610; 85652; 85730; 86618; 86812; 87086; 93005; 93306; 93454; 94640; 99156; 99157; 99284; A9270-GY; G0480; J0360; J0696; J1644; J2250; J3010

== ENCOUNTER 2018-12-30 18:33 | Emergency (ER) | payer MEDICARE, MEDICAID ==
--- OUTSIDE RECORDS SUMMARY | 2018-12-30 19:04 | XMS REPORT | Summary of Care ---
:1940 Author Organization [facility] Address [address] [address] Care Team Providers Name Role Phone Marquita Bennett NP Primary Care Provider Lorri Marie Chronic Disease Nurse Educator Unavailable Reason for Referral (Routine) Status Reason Specialty Diagnoses / Procedures Referred By Contact Referred To Contact Felicity Mathews MD [address] [address] Scheduling Instructions Reason for Consult: NSTEMI, CATH done shows triple vessel disease, for possible CABG. Patient Background: Shu Morris is a 78-y.o. female Reason for Visit Auth/Cert Status Reason Specialty Diagnoses / Procedures Referred By Contact Referred To Contact Encounter Details Date Type Department Care Team Description 12/24/2018 - Hospital Encounter [facility] [address] Kelly Bender MD [address] [address] [phone] Inpatient 12/27/2018 1 Elena Huston MD [address] [address] [phone] [address] [address] Liyah Pond MD [address] [facility] [address] [place], [place] [id number] [phone] Allergies Active Allergy Reactions Severity Noted Date Comments Oxycontin Unknown Reaction 01/27/2018 Sulfa Antibiotics Rash 06/16/2012 Skin burning and itching documented as of this encounter (statuses as of 12/28/2018) Medications Medication Sig Dispensed Refills Start Date End Date Status Esomeprazole Magnesium Take 40 mg by 0 Active (NEXIUM) 20 MG Oral Pack mouth TWICE DAILY. atorvastatin (LIPITOR) 40 Take 40 mg by 0 Active MG Oral Tab mouth DAILY. levothyroxine (SYNTHROID) Take 50 mcg by 0 Active 50 MCG Oral Tab mouth BEFORE BREAKFAST. venlafaxine (EFFEXOR XR) Take 150 mg by 0 Active 150 MG Oral CAPSULE SR 24 mouth EVERY HR TWENTY-FOUR HOURS. gabapentin (NEURONTIN) 100 Take 100 mg by 0 Active MG Oral Cap mouth THREE TIMES DAILY. Celecoxib (CELEBREX PO) Take by 0 Active mouth. HYDROcodone Bitartrate 15 Take 15 mg by 0 Active MG Oral Capsule Extended mouth TWICE Release 12 hour DAILY. Abuse-Deterrent albuterol (PROVENTIL, Take 2.5 mg by 0 Active VENTOLIN) (2.5 MG/3ML) inhalation. 0.083% Inhalation Nebu Soln ipratropium (ATROVENT) [place] 2 Sprays 0 Active 0.03 % Nasal Solution in nose. oxycodone, immediate Take 15 mg by 0 Active release, (OXY-IR) 15 MG mouth EVERY Oral Tab FOUR HOURS NEEDED. ticagrelor (BRILINTA) 90 Take 1 Tab by 60 Tab 3 12/27/2018 Active MG Oral Tab mouth TWICE DAILY. aspirin 81 MG Oral Tab EC Take 1 Tab by 30 Tab 0 12/28/2018 Active mouth DAILY. hydrochlorothiazide (HCTZ, Take 1 Tab by 30 Tab 0 12/28/2018 Active ORETIC) 25 MG Oral mouth DAILY. TabIndications: Indications: Hypertension High Blood Pressure Disorder metoprolol (LOPRESSOR) 25 Take 0.5 Tabs 60 Tab 0 12/27/2018 Active MG Oral Tab by mouth TWICE DAILY. quinapril (ACCUPRIL) 10 MG Take 1 Tab by 60 Tab 0 12/28/2018 Active Oral TabIndications: mouth DAILY. Hypertension Indications: High Blood Pressure Disorder documented as of this encounter (statuses as of 12/28/2018) Active Problems Problem Noted Date Mixed hyperlipidemia 12/25/2018 NSTEMI (non-ST elevated myocardial infarction) 12/25/2018 Hypertension 12/25/2018 Dementia 12/25/2018 Depression 12/25/2018 GERD (gastroesophageal reflux disease) 12/25/2018 COPD (chronic obstructive pulmonary disease) 12/25/2018 Coronary artery disease 12/25/2018 Spondylosis without myelopathy or radiculopathy, lumbar region 04/23/2018 Trochanteric bursitis of both hips 03/07/2018 Overview: Added automatically from request for surgery [id number] Spondylosis of lumbar region without myelopathy or radiculopathy 01/27/2018 Spondylosis of cervical region without myelopathy or radiculopathy 01/27/2018 Other and combined forms of senile cataract 01/09/2005 documented as of this encounter (statuses as of 12/28/2018) Social History Tobacco Use Types Packs/Day Years Used Date Current Every Day Smoker Cigarettes 1.5 49 Smokeless Tobacco: Never Used Alcohol Use Drinks/Week oz/Week Comments No Sex Assigned at Date Recorded Not on file Job Start Date Occupation Industry Not on file Not on file Not on file Travel History Travel Start Travel End No recent travel history available. documented as of this encounter Last Filed Vital Signs Vital Sign Reading Time Taken Comments Blood Pressure 143/76 12/27/2018 7:36 AM EDT Pulse 55 12/27/2018 12:29 PM EDT Temperature 36.9 12/27/2018 7:36 AM EDT C (98.5 F) Respiratory Rate 20 12/27/2018 12:29 PM EDT Oxygen Saturation 95% 12/27/2018 12:25 PM EDT Inhaled Oxygen Concentration - - Weight 62.7 kg (138 lb 4 oz) 12/27/2018 3:45 AM EDT Height 162.6 cm (5' 4") 12/24/2018 9:30 PM EDT Body Mass Index 23.73 12/24/2018 9:30 PM EDT documented in this encounter Discharge Summaries Shanna Matt MD - 12/27/2018 11:48 AM EDT [facility] [address]. [id number] Discharge Summary Patient ID: Shu Morris [id number] 78-y.o. 1940 Admission date: 12/24/2018 Discharge date: 12/27/18 Admitting Physician: Liyah Pond MD Indication for Admission: Transfer for Chest Pain Principal Diagnosis: NSTEMI Other medical problems managed in the hospital: See below Discharged Condition: good Hospital Course: 78-year-old female with a past medical history of rheumatic heart disease, moderate mitral stenosis, hypertension, hyperlipidemia, COPD, diabetes, who lives with her son and daughter. Patient initially went to [facility] for [facility] chest pain[facility] felt that she might need coronary artery bypass surgery therefore she was transferred to [facility] for further evaluation. He also did a trans-thoracic echocardiogram which showed a floppy valve and there was concern for repair therefore she was transferred here for CT surgery evaluation. Upon arrival she was on heparin drip and nitroglycerin drip. CT surgery evaluated patient as such is not a surgical candidate. We discussed the case with interventional cardiology who performed PCI. She will be discharged on Brilinta for 1 year along with quinapril, Lopressor. Follow-up with Dr. Cardenas at [facility] and her PCP. NSTEMI Admitted to [facility] due to chest pain Risk factors for coronary artery disease such as hypertension, diet-controlled diabetes Patient had cardiac catheterization showing triple-vessel disease, large Dx off LAD 85%, subtotal occluded Cx, proximal at bifurcation, long area of occlusion PDA. Echocardiogram showed LVEF to be 55-60% with normal wall motion, mitral valve shows systolic bowing without prolapse, consistent with moderate to severe stenosis, mild regurgitation, mild aortic valve stenosis Currently on aspirin, Lipitor, Lopressor CT surgery evaluated, no surgery Mitral stenosis In the setting of rheumatic heart disease ARLNE performed, no significant changes from previously, no need for valvoplasty Hypertension Patient takes quinapril and Lopressor at home Continue quinapril Continue newly added HCTZ 25 mg daily Continue Lopressor with low HR COPD Not in acute exacerbation Type 2 diabetes Diet controlled Hypothyroid Continue Synthroid Spondylosis Diffuse spondylosis involving the cervical, thoracic and lumbar spine Continue pain medication Physical exam Gen: A&Ox3 NAD HEENT: NC/AT, PERRLA Card: S1s2 no murmurs Resp: CTAB Abd: NTNDx4, pos bs Ext: Pulses present, no edema Consults: CONSULT TO CARDIO/THORACIC SURGERY CONSULT TO HEATER ROOM HELPER/CASE MANAGEMENT CONSULT TO INTERVENTIONAL CARDIOLOGY CONSULT TO HEATER ROOM HELPER/CASE MANAGEMENT Treatments: analgesia anticoagulation cardiac meds Procedures: angiography: Severe distal RCA stenosis s/p PCI with HITESH. Severe first diagonal stenosis s/p PCI with HITESH Severe mid LAD stenosis s/p OCT assisted PCI with HITESH. Left Anterior Descending Mid LAD lesion is 80% stenosed. Optical coherence tomography (OCT) was performed. First Diagonal Branch 1st Diag lesion is 90% stenosed. Right Coronary Artery Dist RCA lesion is 90% stenosed. Intervention Mid LAD lesion Stent Drug-eluting stent was successfully placed. Stent was deployed by way of balloon expansion. Maximum pressure: 14 nicky. Inflation time: 15 sec. 3.0 x 15 orsiro Post-Intervention Lesion Assessment 1st Diag lesion Stent Drug-eluting stent was successfully placed. Stent was deployed by way of balloon expansion. Maximum pressure: 14 nicky. Inflation time: 25 sec. 2.5 x 13 orsiro Post-Intervention Lesion Assessment Dist RCA lesion Stent Drug-eluting stent was successfully placed. Stent was deployed by way of balloon expansion. Maximum pressure: 14 nicky. Inflation time: 25 sec. 2.75 x 40 orsiro Post-Intervention Lesion Assessment Operations: None Complications: None Medications: Current Discharge Medication List START taking these medications Aspirin 81 MG Tbec Dose: 81 mg Start taking on: December 28, 2018 Quantity: 30 Tab Refills: 0 Take 1 Tab by mouth DAILY. hydrochlorothiazide 25 MG Tabs Commonly known as: HCTZ, ORETIC Dose: 25 mg Start taking on: December 28, 2018 For: High Blood Pressure Disorder Quantity: 30 Tab Refills: 0 Take 1 Tab by mouth DAILY. Indications: High Blood Pressure Disorder metoprolol 25 MG Tabs Commonly known as: LOPRESSOR Dose: 12.5 mg Quantity: 60 Tab Refills: 0 Take 0.5 Tabs by mouth TWICE DAILY. quinapril 10 MG Tabs Commonly known as: ACCUPRIL Dose: 10 mg Start taking on: December 28, 2018 For: High Blood Pressure Disorder Quantity: 60 Tab Refills: 0 Take 1 Tab by mouth DAILY. Indications: High Blood Pressure Disorder ticagrelor 90 MG Tabs Commonly known as: BRILINTA Dose: 90 mg Quantity: 60 Tab Refills: 3 Take 1 Tab by mouth TWICE DAILY. CONTINUE these medications which have NOT CHANGED albuterol (2.5 MG/3ML) 0.083% Nebu Commonly known as: PROVENTIL, VENTOLIN Dose: 2.5 mg Refills: 0 Take 2.5 mg by inhalation. CELEBREX PO Refills: 0 Take by mouth. EFFEXOR XR 150 MG Cp24 Generic drug: venlafaxine Dose: 150 mg Refills: 0 Take 150 mg by mouth EVERY TWENTY-FOUR HOURS. gabapentin 100 MG Caps Commonly known as: NEURONTIN Dose: 100 mg Refills: 0 Take 100 mg by mouth THREE TIMES DAILY. HYDROcodone Bitartrate 15 MG C12a Dose: 15 mg Refills: 0 Take 15 mg by mouth TWICE DAILY. ipratropium 0.03 % Soln Commonly known as: ATROVENT Dose: 2 [place] Refills: 0 [place] 2 Sprays in nose. LIPITOR 40 MG Tabs Generic drug: atorvastatin Dose: 40 mg Refills: 0 Take 40 mg by mouth DAILY. NEXIUM 20 MG Pack Generic drug: Esomeprazole Magnesium Dose: 40 mg Refills: 0 Take 40 mg by mouth TWICE DAILY. oxycodone (immediate release) 15 MG Tabs Commonly known as: OXY-IR Dose: 15 mg Refills: 0 Take 15 mg by mouth EVERY FOUR HOURS NEEDED. SYNTHROID 50 MCG Tabs Generic drug: levothyroxine Dose: 50 mcg Refills: 0 Take 50 mcg by mouth BEFORE BREAKFAST. Where to Get Your Medications These medications were sent to [id number] - [address] AT [facility] & [address] [id number] Aspirin 81 MG Tbec hydrochlorothiazide 25 MG Tabs metoprolol 25 MG Tabs quinapril 10 MG Tabs ticagrelor 90 MG Tabs Oxygen or Positive Pressure Devices: none Patient Instructions: Activity: activity as tolerated Wound Care: None needed Follow-Up: Follow up with Dr. Cardenas in 2 weeks. Reason: Post Hospital Visit Diet: Cardiac Diet No orders of the defined types were placed in this encounter. Total duration of time spent: 35 minutes. Provider Signature: Shanna Matt MD Internal Medicine PGY3 Pager [phone] Associated attestation - Elena Price MD - 12/27/2018 4:25 PM EDTPATIENT: Shu Morris : 1940 AGE: 78-y.o. DATE OF ADMISSION: 12/24/2018 Supervising Attending Note: Patient was examined and all available records were reviewed with the Residents/ Fellow / SYSTEMATIC THEOLOGY PROFESSOR. Lungs: clear; Cardiac: Normal S1, S2; No gallop; 1/6 systolic murmur Ext: No Pedal Edema Disposition plan was discussed with the patient / patient's family. Agree with the above plan. Patient was discharged and all instructions, medications and follow-ups were reviewed by the resident / nursing staff. Discharge home. Elena Price MD documented in this encounter Discharge Instructions Zoraida Clements RN - 12/27/2018Provider's Instructions Reason for Admission or Diagnosis:NSTEMI (non-ST elevated myocardial infarction ) (HCC) Goals:Patient to maintain functional ability. Activity/Restrictions: activity as tolerated Skin/Wound Care: Observe for redness, swelling or drainage Discharge Diet: Cardiac Diet Special Instructions: You had cardiac catheterization performed while at this hospital You will be discharged on Brilinta 90 mg twice a day, you cannot miss a dose of else your stent may close He will be on his medication for at least 6 months or until your college sports assistant says otherwise Start aspirin 81 mg daily Start hydrochlorothiazide 25 mg daily for blood pressure control Start Lopressor 12.5 mg daily for your heart Start quinapril 10 mg daily for blood pressure control Follow-up with Dr. Cardenas in 2 to 3 weeks [facility] Follow-up with your primary college sports assistant and your primary care physician as well and at the Discharge Provider: Shanna Matt MD Attending: Elena Price MD Time: 11:57 Nurse's Instructions Problems to report to your Physician: Excessive pain or discomfort Fever > 100.5 degrees Difficulty breathing Increase or smell in wound drainage Follow up: Follow-up with Dr. Cardenas in 2 to 3 weeks [facility] [phone] Follow-up with your primary college sports assistant and your primary care physician as well and at the documented in this encounter Progress Notes Shanna Matt MD - 12/26/2018 8:21 AM EDT [facility] [place] [place] [address] Cardiology Progress Note Date of Service: 12/26/2018 Patient: Shu Guardado #: [id number] Attending: ELENA PRICE MD ,MD Subjective: Had left-sided abdominal pain along with nausea. Was maintained on heparin and nitroglycerin drip Objective: Blood pressure 163/60, pulse 53, temperature 98.2 F (36.8 C) , temperature source Oral, resp. rate 20, height 5' 4" (1.626 m), weight 135 lb 3.2 oz (61.3 kg), SpO2 98 %. I/O: Intake/Output Summary (Last 24 hours) at 12/26/2018 0821 Last data filed at 12/26/2018 0600 Gross per 24 hour Intake 1906.5 ml Output 850 ml Net 1056.5 ml General: mild distress and cooperative Neck: No JVD Lungs: CTA Heart: Grade lll systolic mitral area murmur Abd: soft, nontender, nondistended Ext: no edema Skin: Skin color, texture, turgor normal. No rashes or lesions. Data: WBC Count Date Value Ref Range Status 12/26/2018 8.84 3.98 - 10.04 K/uL Final Comment: Methodology was changed 04/03/2018. Please note updated reference range and units. 12/25/2018 7.98 3.98 - 10.04 K/uL Final Hemoglobin Date Value Ref Range Status 12/26/2018 12.1 11.2 - 15.7 g/dL Final Hematocrit Date Value Ref Range Status 12/26/2018 36.4 34.1 - 44.9 % Final Platelet Count Date Value Ref Range Status 12/26/2018 256 182 - 369 K/uL Final No results found for: BNP No results found for: INR Troponin Date Value Ref Range Status 12/26/2018 2.760 (HH) 0.000 - 0.034 ng/ml Final Comment: Negative less than or equal to 0.034 ng/ml Indeterminate 0.0351 - 0.119 ng/ml (Suggest Repeat in 4 Hours) Critical (AMI Cutoff) greater than or equal to 0.120 ng/ml No results found for: CHOL, TRIG, HDL, LDL, LDLHDLRATIO, CHOLHDLRATIO Tests: EKG: NSR CXR: N/A Echo: To be uploaded Stress Test: NA Assessment/Plan: Principal Problem: NSTEMI (non-ST elevated myocardial infarction) ([facility]) Active Problems: Mixed hyperlipidemia Hypertension Dementia Depression GERD (gastroesophageal reflux disease) COPD (chronic obstructive pulmonary disease) (HCC) Coronary artery disease NSTEMI Admitted to [facility] due to chest pain Risk factors for coronary artery disease such as hypertension, diet-controlled diabetes Patient had cardiac catheterization showing triple-vessel disease, large Dx off LAD 85%, subtotal occluded Cx, proximal at bifurcation, long area of occlusion PDA. Echocardiogram showedLVEF to be 55-60% with normal wall motion, mitral valve shows systolic bowing without prolapse, consistent with moderate to severe stenosis, mild regurgitation, mild aortic valve stenosis Currently on aspirin, Lipitor, Lopressor, troponin downtrend Continue heparin drip for PCI today We will attempt to wean off nitroglycerin drip CT surgery evaluated, no surgery Mitral stenosis In the setting of rheumatic heart disease Reviewed echocardiogram, will perform transesophageal echocardiogram today to further evaluate valve Considering mitral valve valvuloplasty Hypertension Patient takes quinapril and Lopressor at home Continue quinapril Continue newly added HCTZ 25 mg daily Continue Lopressor with low HR Wean off nitroglycerin COPD Not in acute exacerbation Continue duo nebs and Dulera Type 2 diabetes Diet controlled Hypothyroid Continue Synthroid Spondylosis Diffuse spondylosis involving the cervical, thoracic and lumbar spine Continue pain medication Disp: Tentative PCI today along with transesophageal echocardiogram Author: Shanna Matt MDElectronically signed by Elena Price MD at 2018 7:45 PM EDT Associated attestation - Elena Price MD - 12/26/2018 7:45 PM EDTPATIENT: Shu Morris : 1940 AGE: 78-y.o. DATE OF ADMISSION: 12/24/2018 SUPERVISING ATTENDING NOTE: All relevant medical records were reviewed along with the CV Fellow / Residents. Patient was examined by myself. Lungs: Clear, Cor: S1, S2, RRR, 1/6 Systolic murmur Ext: No Pedal Edema . Plan discussed and all concerns/questions were addressed. Plan was discussed with the CV Fellow/Residents. Agree with the recommendations. Possible discharge in AM. MD Eder Gutierrez Hao, MD - 12/25/2018 5:33 PM EDTJunwilma Morris [id number] Indications for procedure: Triple-vessel CAD Procedure required: Coronary angioplasty, high risk PCI Preferred Schedule Date/Time: 12/26/18 HPI: 78 y.o. F who presented to [facility] for chest pain. She was found to have triple-vesseldisease on left heart catheterization at outside hospital. In addition, was found to have moderate to severe mitral regurgitation on TTE at OSH as well. Transferred for cardiac surgery evaluation, but they refused and recommended high risk PCI. Troponin peaked at 3.9. Discussed case with Dr. Fuentes. Relevant history: 1. CAD - LHC on 12/24/18 showed 85% LAD/D1, subtotally occluded non-dominant LCx , long area of occlusion in RPDA. 2. Moderate to severe mitral regurgitation, on TTE 12/23/18 3. HTN 4. DMTII 5. Depression 6. COPD 7. GERD Pulses: Grade 0-3 Right: Radial - 3 Ulnar - 3 Femoral - 2 TP - 1 DP - 1 Left: Radial - 3 Ulnar - 3 Femoral - 2 TP - 1 DP - 1 EKG Imaging (Echo, Stress Imagine, Angiograms, etc.) TTE 12/23/18 LVEF to be 55-60% with normal wall motion, mitral valve shows systolic bowing without prolapse, consistent with moderate to severe stenosis, mild regurgitation, mild aortic valve stenosis. Current meds ASA 81 mg Atorvastatin 80 mg HCTZ 25 mg (hold on 12/25/18) Metoprolol 12.5 mg BID Buspirone 7.5 mg TID Quinapril 10 mg Oxybutynin 5 mg BID Synthroid 75 mcg Issues: Anticoagulation with heparin drip Contrast or medication allergy - Oxycontin, sulfa abx Peripheral vascular disease - ? Labs: Hgb - 12.6, Plt 292 Cut Off Tender Glass - 0.7 I explained the heart catheterization and possible angioplasty/stent procedure as well as the attendant risks. Major risks include, but are not limited to, major bleeding requiring blood transfusions or surgical repair, cerebrovascular accident, myocardial infarction, ventricular tachycardia, fibrillation or serious arrhythmia or even . Other risks include aortic dissection, cardiac perforation,tamponade, contract reaction including anaphylaxis or nephrotoxicity, heart block, hemorrhage (local, retroperitoneal), infection, thrombosis, vascular injury or pseudoaneurysm. The patient understandsthe risks and wishes to proceed. All questions were answered to their satisfaction. Shanna aWll MD - 12/25/2018 7:52 AM EDT [facility] [place]. [id number] Cardiology Progress Note Date of Service: 12/25/2018 Patient: Shu Guardado #: [id number] Attending: KELLY BENDER MD ,MD Subjective: Feels like she still has chest heaviness, no other issues overnight Objective: Blood pressure 178/78, pulse 50, temperature 98.4 F (36.9 C) , temperature source Oral, resp. rate 20, height 5' 4" (1.626 m), weight 135 lb 3.2 oz (61.3 kg), SpO2 98 %. I/O: Intake/Output Summary (Last 24 hours) at 12/25/2018 0752 Last data filed at 12/25/2018 0510 Gross per 24 hour Intake 240 ml Output 250 ml Net -10 ml General: mild distress and cooperative Neck: No JVD Lungs: CTA Heart: Grade lll systolic mitral area murmur Abd: soft, nontender, nondistended Ext: no edema Skin: Skin color, texture, turgor normal. No rashes or lesions. Data: WBC Count Date Value Ref Range Status 12/24/2018 9.16 3.98 - 10.04 K/uL Final Hemoglobin Date Value Ref Range Status 12/24/2018 12.3 11.2 - 15.7 g/dL Final Hematocrit Date Value Ref Range Status 12/24/2018 37.7 34.1 - 44.9 % Final Platelet Count Date Value Ref Range Status 12/24/2018 261 182 - 369 K/uL Final No results found for: BNP No results found for: INR Troponin Date Value Ref Range Status 12/25/2018 3.960 (HH) 0.000 - 0.034 ng/ml Final Comment: Negative less than or equal to 0.034 ng/ml Indeterminate 0.0351 - 0.119 ng/ml (Suggest Repeat in 4 Hours) Critical (AMI Cutoff) greater than or equal to 0.120 ng/ml No results found for: CHOL, TRIG, HDL, LDL, LDLHDLRATIO, CHOLHDLRATIO Tests: EKG: NSR CXR: N/A Echo: To be uploaded Stress Test: NA Assessment/Plan: Principal Problem: Coronary artery disease Active Problems: Mixed hyperlipidemia NSTEMI (non-ST elevated myocardial infarction) (HCC) Hypertension Dementia Depression GERD (gastroesophageal reflux disease) COPD (chronic obstructive pulmonary disease) (HCC) NSTEMI Admitted to [facility] due to chest pain Multiple risk factors for coronary artery disease such as hypertension, diet- controlled diabetes Patient had cardiac catheterization showing triple-vessel disease, large Dx off LAD 85%, subtotal occluded Cx, proximal at bifurcation, long area of occlusion PDA. Echocardiogram showedLVEF to be 55-60% with normal wall motion,mitral valve shows systolic bowing without prolapse, consistent with moderate to severe stenosis, mild regurgitation, mild aortic valve stenosis Currently on aspirin, Lipitor, Lopressor Continue heparin drip, will wean off nitro drip Transferred here for cardiothoracic evaluation, will obtain presurgical testing CD to be uploaded Hypertension Patient takes quinapril and Lopressor at home Resume Quinapril Add HCTZ 25 mg daily Continue Lopressor with low HR COPD Not in acute exacerbation Continue duo nebs and Dulera Type 2 diabetes Diet controlled Hypothyroid Continue Synthroid Spondylosis Diffuse spondylosis involving the cervical, thoracic and lumbar spine Continue pain medication Disp: Await CT surgery evaluation Author: Shanna Matt MDElectronically signed by Kelly Bender MD at 2018 9:38 PM EDT Associated attestation - Kelly Bender MD - 12/25/2018 9:[facility] Supervising MD Documentation Date of Service: 12/25/18 B# [id number] I saw and evaluated the patient. Discussed with resident and agree with the resident's findings andplan as documented in the resident's note. Additional Comments: Patient was deemed high risk for CABG and MVR. I reviewed the coronary angiogram films and echo films personally and have also discussed this with Dr. Fuentes. Plan for PCI tomorrow and a ARLEN to further assess mitral stenosis. Kelly Bender MD Supervising Physiciandocumented in this encounter Plan of Treatment Name Type Priority Associated Diagnoses Date/Time VL NECK CAROTID BILATERAL Imaging Routine 12/25/2018 11:54 AM EDT VL BODY MEASURE VERENICE Imaging Routine 12/25/2018 2:19 MULTIPLE PM EDT CARDIAC CATHETERIZATION Cardiac Cath Routine 12/26/2018 11:46 AM EDT Health Maintenance Due Date Last Done Comments MEDICARE ANNUAL WELLNESS VISIT 1940 DEPRESSION SCREENING 1953 HIV SCREENING 1956 ZOSTER IMMUNIZATION SERIES (1 of 2) 1991 LUNG CANCER SCREENING 1996 FALL RISK ASSESSMENT 2006 OSTEOPOROSIS SCREENING 2006 PNEUMOCOCCAL 65+YRS (1 of 2 - 2006 PCV13) INFLUENZA VACCINE (#1) 2018 HPV IMMUNIZATION SERIES Aged Out No longer eligible based on patient's age to complete this topic MENINGOCOCCAL VACCINE IMM Aged Out No longer eligible based on patient's age to complete this topic documented as of this encounter Implants Implanted Type Area Ore Feeder Device Shelf Model / Identifier Expiration Serial / Lot Date 2.75 X 40 Orsiro N/A: [id number] / Implanted: Qty: 1 on 12/26/2018 by Champ Fuentes MD at [facility] / [id number] 2.5 X 13 Orsiro N/A: Diagonal [id number] / Implanted: Qty: 1 on 12/26/2018 by Champ Fuentes MD at [facility] / [id number] 3.0 X 15 Orsiro N/A: [id number] / Implanted: Qty: 1 on 12/26/2018 by Champ Fuentes MD at [facility] / [id number] documented as of this encounter Procedures Procedure Name Priority Date/Time Associated Diagnosis Comments MAGNESIUM LEVEL Routine 12/27/2018 4:30 Results for this AM EDT procedure are in the results section. BASIC METABOLIC PANEL Routine 12/27/2018 4:30 Results for this AM EDT procedure are in the results section. CBC NO DIFFERENTIAL Routine 12/27/2018 4:30 Results for this AM EDT procedure are in the results section. HEMOGLOBIN & Routine 12/26/2018 5:16 Results for this HEMATOCRIT PM EDT procedure are in the results section. 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 pectoris ECHO, TRANS ESOPHOGEAL Routine 12/26/2018 12:50 Results for this PM EDT procedure are in the results section. ECHOCARDIOGRAM ARLEN Routine 12/26/2018 11:39 Results for this AM EDT procedure are in the results section. ACT-LOW RANGE (POCT) Routine 12/26/2018 10:59 Results for this AM EDT procedure are in the results section. HC GLUCOSE, BY MONITOR Routine 12/26/2018 9:01 Results for this AM EDT procedure are in the results section. TROPONIN Routine 12/26/2018 3:20 Results for this AM EDT procedure are in the results section. MAGNESIUM LEVEL Routine 12/26/2018 3:20 Results for this AM EDT procedure are in the results section. BASIC METABOLIC PANEL Routine 12/26/2018 3:20 Results for this AM EDT procedure are in the results section. CBC NO DIFFERENTIAL Routine 12/26/2018 3:20 Results for this AM EDT procedure are in the results section. PARTIAL THROMBOPLASTIN Routine 12/26/2018 3:20 Results for this TIME AM EDT procedure are in the results section. PARTIAL THROMBOPLASTIN Routine 12/25/2018 6:50 Results for this TIME PM EDT procedure are in the results section. CBC WITH DIFFERENTIAL Routine 12/25/2018 10:17 Results for this AM EDT procedure are in the results section. BASIC METABOLIC PANEL Routine 12/25/2018 10:16 Results for this AM EDT procedure are in the results section. PARTIAL THROMBOPLASTIN Routine 12/25/2018 10:16 Results for this TIME AM EDT procedure are in the results section. PFT ROUTINE STUDIES Routine 12/25/2018 7:15 Results for this AM EDT procedure are in the results section. PARTIAL THROMBOPLASTIN Routine 12/25/2018 6:55 Results for this TIME AM EDT procedure are in the results section. TROPONIN STAT 12/25/2018 5:08 Results for this AM EDT procedure are in the results section. URINALYSIS (LAB) WITH STAT 12/25/2018 5:04 Results for this REFLEX CULTURE AM EDT procedure are in the results section. CT HEAD WITHOUT IV Routine 12/25/2018 1:50 CONTRAST AM EDT CBC WITH DIFFERENTIAL STAT 12/24/2018 10:21 Results for this PM EDT procedure are in the results section. TROPONIN STAT 12/24/2018 10:21 Results for this PM EDT procedure are in the results section. COMPREHENSIVE STAT 12/24/2018 10:21 Results for this METABOLIC PANEL PM EDT procedure are in the results section. PARTIAL THROMBOPLASTIN STAT 12/24/2018 10:21 Results for this TIME PM EDT procedure are in the results section. IN PT/ED 12 LEAD EKG STAT 12/24/2018 9:45 Precordial pain Results for this PM EDT procedure are in the results section. XR CHEST 1 VIEW Routine 12/22/2018 12:[address] HEAD WITHOUT IV Routine 12/22/2018 12:05 CONTRAST AM EDT documented in this encounter Results MAGNESIUM LEVEL (12/27/2018 4:30 AM EDT) Magnesium 1.5 (L) 1.6 - 2.3 MG/DL [facility] Specimen Blood - Blood specimen (specimen) Performing Organization Address [facility] Phone Number [facility] [address] [place] [address] BASIC METABOLIC PANEL (12/27/2018 4:30 AM EDT) Glucose 97 70 - 99 mg/dl [facility] BUN 9 7 - 17 mg/dl [facility] Creatinine 0.7 0.7 - 1.2 mg/dl [facility] Sodium 139 134 - 145 mmol/L [facility] Potassium 3.2 (L) 3.5 - 5.1 mmol/L [facility] Chloride 106 98 - 107 mmol/L [facility] CO2 24 22 - 30 mmol/L [facility] Calcium 9.1 8.3 - 10.1 mg/dl [facility] eGFR >60 See Interpretation [facility] Comment: Below ml/min/1.73ml GROUP Estimated GFR Interpretation: Sq LABORATORY Above 60ml/min/1.73m2 = Normal Renal Function 30-59 ml/min/1.73m2 = Stage 3 Chronic Kidney Disease 15-29 ml/min/1.73m2 = Stage 4 Chronic Kidney Disease Less than 15 ml/min/1.73m2 = Stage 5 Chronic Kidney Disease The GFR value is calculated using the Modification of Diet in Renal Disease ( MDRD) Study Equation which can be found at: https://www.kidney.org/content/lmok-kukwd-ayfkoxvk BUN/Creatinine 13 6 - 22 RATIO [facility] LABORATORY Anion Gap 9 3 - 11 mmol/L [facility] Specimen Blood - Blood specimen (specimen) Performing Organization Address [facility] [place] [facility] Phone Number [facility] [address] [place] [address] CBC NO DIFFERENTIAL (12/27/2018 4:30 AM EDT) WBC Count 9.01Comment: 3.98 - 10.04 [facility] Methodology was K/uL GROUP LABORATORY changed 04/03/2018. Please note updated reference range and units. RBC Count 3.69 (L) 3.93 - 5.22 [facility] M/UL [facility] Hemoglobin 11.2 11.2 - 15.7 [facility] g/dL [facility] Hematocrit 35.1 34.1 - 44.9 % [facility] MCV 95.1 (H) 79.4 - 94.8 [facility] FL [facility] MCH 30.4 25.6 - 32.2 [facility] PG [facility] MCHC 31.9 (L) 32.2 - 35.5 [facility] g/dL [facility] Platelet Count 255 182 - 369 [facility] K/uL [facility] MPV 10.6 9.4 - 12.3 FL [facility] RDW 13.7 11.7 - 14.4 % [facility] Specimen Blood - Blood specimen (specimen) Performing Organization Address City/State/Zipcode Phone Number [facility] [address] [place] [address] HEMOGLOBIN & HEMATOCRIT (12/26/2018 5:16 PM EDT) [facility] Hemoglobin 12.4Comment: 11.2 - 15.7 [facility] Methodology was g/dL GROUP LABORATORY changed 04/03/2018. Please note updated reference range and units. Hematocrit 38.8 34.1 - 44.9 % [facility] Specimen Blood - Blood specimen (specimen) Performing Organization Address City/State/Zipcode Phone Number [facility] [address] [place] [address] IN PT/ED 12 LEAD EKG (12/26/2018 2:12 PM EDT) Ventricular Rate 67 BPM CARDIOLOGY DEPARTMENT Atrial rate 67 BPM CARDIOLOGY DEPARTMENT P-R Interval 186 ms CARDIOLOGY DEPARTMENT QRS Duration 86 ms CARDIOLOGY DEPARTMENT Q-T Interval 430 ms CARDIOLOGY DEPARTMENT QTC Calculation 454 ms CARDIOLOGY (Bezet) DEPARTMENT P [place] 62 degrees CARDIOLOGY DEPARTMENT R [place] 0 degrees CARDIOLOGY DEPARTMENT T [place] -21 degrees CARDIOLOGY DEPARTMENT Diagnosis Line Normal sinus rhythm CARDIOLOGY Nonspecific ST abnormality DEPARTMENT Abnormal ECG When compared with ECG of 24-DEC-2018 21:45, T wave inversion now evident in Inferior leads Nonspecific T wave abnormality no longer evident in Lateral leads Confirmed by ELENA PRICE ([id number]) ([id number]) on 12/27/2018 8:43:43 AM Specimen Performing Organization Address City/State/[facility] Phone Number CARDIOLOGY DEPARTMENT ECHO, TRANS ESOPHOGEAL (12/26/2018 12:50 PM EDT) Specimen Narrative Performed At This test has been auto-finalized. Please see the [facility] result [facility] POCT in the Cardiac tab of Chart Review for the final result. Performing Organization Address City/[facility] Phone Number [facility] POCT [address] [facility] [place] [address] ECHOCARDIOGRAM ARLEN (12/26/2018 11:39 AM EDT) TRANSESOPHAGEAL ARLEN TRANSESOPHAGEAL ECHO REPORT CARDIOLOGY DEPARTMENT Patient Name: ALEXANDRA CUELLAR Status: Inpatient MR Number: [id number] Age: 78 year(s) : 1940 Gender: Female Exam Date: 12/26/2018 11:39 AM Location: [place] Height: 64 inches Weight: 135 pounds Study Performed: 2D echocardiogram, Doppler , Color Doppler, Transesophageal ARLEN, 3D echocardiogram. BSA: 1.66 m^2 BMI: 23.17 kg/m^2 Ordering MARLO CARDENAS MD Provider: Referring OZIEL DIAZ MD Provider: Critical Care Paramedic: Delfin Bains BS, RDCS CHELA VELASCO MD Interpreting KELLY BENDER Physician: ,FACC,FACP Interpreting CHELA VELASCO MD Fellow: Nurse: Technical Quality: Adequate visualization Heart Rate (HR): 57bpm Blood Pressure (BP): 182/77mmHg INDICATION FOR STUDY: Mitral regurgitation and Aortic stenosis. HR: 57 bpmBP: 182/77 mmHgO2 Saturation: 96 % FINAL IMPRESSION: There is severe mitral stenosis (3D derived 2D MV area 1.5 cm2)with mean gradient of 7 - 8 mmHg with mild to moderate regurgitation as described at systolic BP of 150 mmHg and moderate to severe regurgitation at systolic BP of 210 mmHg. Mitral valve area by 3D derived 2D planimetry is 1.5 cm2. Pham score of 7 ( Mobility:4, Leaflet thickening :1, Calcification: 1, subvalvular thickenin) Global systolic function is normal, with an estimated ejection fraction of 55-60 %. The aortic valve is tricuspid, mildly calcified, with restricted mobility. Mild aortic stenosis. Mild to moderate aortic regurgitation. I have personally seen and reviewed the study with the svp monetization and agree with the above documentation. OBSERVATIONS & FINDINGS: Using 2d (3d if applicable), M-mode, Colorflow, Continuous wave doppler and Pulse wave doppler interrogation Left Ventricle Global systolic function is normal, with an estimated ejection fraction of 55-60 %. Left Atrium The left atrium is dilated. Interatrial septum appears intact by doppler. There is lipomatous hypertrophy of the interatrial septum. Mitral Valve Mitral valve leaflets are severly calcified with severly restricted mobility of the posterior leaflet. There is "hockey stick" appearance of the anterior mitral leaflet suggestive of rheumatic etiology. The mean gradient across the valve is 7-8 mmHg at HR of 63 bpm. Mitral valve area by 3D derived 2D planimetry is 1.5 cm2. Pham score of 7 ( Mobility:4, Leaflet thickening :1, Calcification: 1, subvalvular thickenin) There is severe mitral stenosis. There is moderate to severe mitral regurgitation noted in color doppler in inital image aquisition. However at this time, patients BP was 210 mmHg systolic. after lowering the BP to 150 mmHg systolic, the regurgitation appears to be mild to moderate. Aortic Valve The aortic valve is tricuspid, mildly calcified, with moderately restricted mobility. Aortic valve area by 3D derived 2D planimetry is 1.8 cm2. Mild aortic stenosis. Mild to moderate aortic regurgitation. Right Ventricle Right ventricle is normal in size with normal systolic function. Doppler Measurements & Calculations: Mitral: Valve Area (P-1/2-time)3.14 MV Mean Gradient: 6 mmHg MV Mean Velocity: 112 cm/s MV P1/2t: 70 msec HALLE Volumetric: 0.12 cm^2 Signature Type of Anesthesia: Moderate sedation Specimen Performing Organization Address [facility] Phone Number CARDIOLOGY DEPARTMENT ACT-LOW RANGE (POCT) (12/26/2018 10:59 AM EDT) ACT-LR (POCT) 245 POINT OF CARE Comment: TESTING Reference Range = 70-120 sec Cardiopulmonary bypass (CPB) pt, cannulation = 480-800 sec CPB pt, to go on bypass, min value on bypass = 400 sec Target range, heparinized PTCA = 200-350 sec Stent = > 300 sec Pulling Sheaths = < 180 sec Angioplasty / TAVR = 250-300 sec (upon Dr's discretion) Performed at: [facility] POCT Freddy Norris MD, Laboratory Unit Leader [address] [place] [address] Specimen Performing Organization Address [facility] Phone Number POINT OF CARE TESTING GLUCOSE (POCT) (12/26/2018 9:01 AM EDT) Glucose POCT 128 (H) 70 - 99 mg/dl POINT OF CARE Result Comment: TESTING Performed at: [facility] POCT Freddy Norris MD, Laboratory Unit Leader [address] [place] [address] Specimen Performing Organization Address [facility] [place] [facility] Phone Number POINT OF CARE TESTING CBC NO DIFFERENTIAL (12/26/2018 3:20 AM EDT) WBC Count 8.84Comment: 3.98 - 10.04 [facility] Methodology was K/uL GROUP LABORATORY changed 04/03/2018. Please note updated reference range and units. RBC Count 3.99 3.93 - 5.22 [facility]/UL [facility] Hemoglobin 12.1 11.2 - 15.7 [facility] g/dL GROUP LABORATORY Hematocrit 36.4 34.1 - 44.9 % [facility] MCV 91.2 79.4 - 94.8 [facility] FL GROUP LABORATORY MCH 30.3 25.6 - 32.2 [facility] PG GROUP LABORATORY MCHC 33.2 32.2 - 35.5 [facility] g/dL GROUP LABORATORY Platelet Count 256 182 - 369 [facility] K/uL GROUP [facility]ATORY MPV 10.2 9.4 - 12.3 FL [facility] RDW 13.3 11.7 - 14.4 % [facility] Specimen Blood - Blood specimen (specimen) Performing Organization Address [facility] [place] [facility] Phone Number [facility] [address] [place] [address] PARTIAL THROMBOPLASTIN TIME (12/26/2018 3:20 AM EDT) PTT 108.5 (H) 22.8 - 34.7 SEC [facility] Specimen Blood - Blood specimen (specimen) Performing Organization Address [facility] Number [facility] [address] [place] [address] TROPONIN (12/26/2018 3:20 AM EDT) Troponin 2.760 (HH) 0.000 - 0.034 [facility] Comment: ng/ml GROUP LABORATORY Negative less than or equal to 0.034 ng/ml Indeterminate 0.0351 - 0.119 ng/ml (Suggest Repeat in 4 Hours) Critical (AMI Cutoff) greater than or equal to 0.120 ng/ml Specimen Blood - Blood specimen (specimen) Performing Organization Address [facility] Number [facility] [address] [facility] [place] [address] [phone] MAGNESIUM LEVEL (12/26/2018 3:20 AM EDT) Magnesium 1.5 (L) 1.6 - 2.3 MG/DL [facility] Specimen Blood - Blood specimen (specimen) Performing Organization Address [facility] Phone Number [facility] [address] [place] [address] BASIC METABOLIC PANEL (12/26/2018 3:20 AM EDT) Glucose 130 (H) 70 - 99 mg/dl [facility] BUN 14 7 - 17 mg/dl [facility] Creatinine 0.8 0.7 - 1.2 mg/dl [facility] Sodium 136 134 - 145 mmol/L [facility] Potassium 3.7 3.5 - 5.1 mmol/L [facility] Chloride 103 98 - 107 mmol/L [facility] CO2 25 22 - 30 mmol/L [facility] Calcium 10.2 (H) 8.3 - 10.1 mg/dl [facility] eGFR >60 See Interpretation [facility] Comment: Below ml/min/1.73ml GROUP Estimated GFR Interpretation: LABORATORY Above 60ml/min/1.73m2 = Normal Renal Function 30-59 ml/min/1.73m2 = Stage 3 Chronic Kidney Disease 15-29 ml/min/1.73m2 = Stage 4 Chronic Kidney Disease Less than 15 ml/min/1.73m2 = Stage 5 Chronic Kidney Disease The GFR value is calculated using the Modification of Diet in Renal Disease ( MDRD) Study Equation which can be found at: https://www.kidney.org/content/hgxt-epmnw-zrwgooyz BUN/Creatinine 18 6 - 22 RATIO [facility] LABORATORY Anion Gap 8 3 - 11 mmol/L [facility] Specimen Blood - Blood specimen (specimen) Performing Organization Address [facility] Phone Number [facility] [address] [place] [address] [phone] PARTIAL THROMBOPLASTIN TIME (12/25/2018 6:50 PM EDT) PTT 146.3 (HH) 22.8 - 34.7 SEC [facility] Specimen Blood - Blood specimen (specimen) Performing Organization Address [facility] Phone Number [facility] [address] [place] [address] CBC WITH DIFFERENTIAL (12/25/2018 10:17 AM EDT) WBC Count 7.98 3.98 - 10.04 K/uL [facility] RBC Count 4.20 3.93 - 5.22 M/UL [facility] Hemoglobin 12.6 11.2 - 15.7 g/dL [facility] Hematocrit 38.6 34.1 - 44.9 % [facility] MCV 91.9 79.4 - 94.8 FL [facility] MCH 30.0 25.6 - 32.2 PG [facility] MCHC 32.6 32.2 - 35.5 g/dL [facility] Platelet Count 292 182 - 369 K/uL [facility] MPV 10.8 9.4 - 12.3 FL [facility] RDW 13.6 11.7 - 14.4 % [facility] Neutrophil % 61.5 34.0 - 71.1 % [facility] Lymphocyte % 28.7 19.3 - 51.7 % [facility] Monocyte % 7.5 4.7 - 12.5 % [facility] Eosinophil % 1.4 0.7 - 5.8 % [facility] Basophil % 0.4 0.1 - 1.2 % [facility] nRBC % 0.0 0.0 - 0.2 % [facility] Neutrophil # 4.91 1.56 - 6.13 K/UL [facility] Lymphocyte # 2.29 1.18 - 3.74 K/UL [facility] Monocyte # 0.60 0.24 - 0.86 K/UL [facility] Eosinophil # 0.11 0.04 - 0.36 K/UL [facility] Basophil # 0.03 0.01 - 0.08 K/UL [facility] Immature Gran % 0.5 (H) 0.0 - 0.4 % [facility] Immature Gran # 0.04 (H) 0.00 - 0.03 K/uL [facility] NRBC # 0.00 0.00 - 0.12 K/uL [facility] Specimen Blood - Blood specimen (specimen) Performing Organization Address City/State/Zipcode Phone Number [facility] [address] [place] [address] PARTIAL THROMBOPLASTIN TIME (12/25/2018 10:16 AM EDT) PTT 119.0 (H) 22.8 - 34.7 SEC [facility] Specimen Blood - Blood specimen (specimen) Performing Organization Address [facility] Phone Number [facility] [address] [place] [address] BASIC METABOLIC PANEL (12/25/2018 10:16 AM EDT) Glucose 150 (H) 70 - 99 mg/dl [facility] BUN 12 7 - 17 mg/dl [facility] Creatinine 0.7 0.7 - 1.2 mg/dl [facility] Sodium 139 134 - 145 mmol/L [facility] Potassium 3.6 3.5 - 5.1 mmol/L [facility] Chloride 100 98 - 107 mmol/L [facility] CO2 28 22 - 30 mmol/L [facility] Calcium 10.0 8.3 - 10.1 mg/dl [facility] eGFR >60 See Interpretation [facility] Comment: Below ml/min/1.73ml GROUP Estimated GFR Interpretation: Sq LABORATORY Above 60ml/min/1.73m2 = Normal Renal Function 30-59 ml/min/1.73m2 = Stage 3 Chronic Kidney Disease 15-29 ml/min/1.73m2 = Stage 4 Chronic Kidney Disease Less than 15 ml/min/1.73m2 = Stage 5 Chronic Kidney Disease The GFR value is calculated using the Modification of Diet in Renal Disease ( MDRD) Study Equation which can be found at: https://www.kidney.org/content/ymmg-clkdz-gbqygzfg BUN/Creatinine 17 6 - 22 [facility]AT[facility]ATORY Anion Gap 11 3 - 11 mmol/L [facility] Specimen Blood - Blood specimen (specimen) Performing Organization Address City/[facility] Phone Number [facility] [address] [place] [address] [phone] PFT ROUTINE STUDIES (12/25/2018 7:15 AM EDT) Specimen Narrative Performed At [facility] Pulmonary Function Lab [place] [address] Last Name: ALEXANDRA SHU Room Number: 8NW Editorial Director: GALILEA Date: 1940 Age: 78 Weight: 136.0 lbs, 61.8 kg Gender: Female Height: 64.0 in, 162.6 cm Physician Name: DUGLAS DILLARD (2004) Date: 12/25/2018 7:15:31 AM Smoke Status: Quit BMI: 23.39 kg/m2 Predicted Protocol: MOD 01 EigenWang NHANESIII C DENTURE LABORATORY TECHNICIAN NOTES Click "view image" for full report Spirometry Test Quality: 4 Patient unable to reach EOT due to feeling empty early on FVC and unable to match SVC to FVC after multiple attempts DLCO Test Quality: 4 DLCO Corrected to HGB of: 12.3 Patient unable to reach 85% VC on each attempt, best efforts reported Diagnosis / Reason for Test: NSTEMI, Pre OP Last Study: No previous study Good effort PHYSICIAN INTERPRETATION Good test quality and patient effort. Findings: Forced vital capacity is normal. FEV1 is normal. FEV1/VC max is normal. Airflow obstruction as suggested by the shape of the flow volume loops. Diffusion capacity when corrected for hemoglobin is severely reduced. There are no comparison studies. Impression: Borderline airflow obstruction combined with severely reduced gas exchange capacity. The reduced diffusion capacity may be due to emphysema, an alternate parenchymal process or pulmonary vascular disease. Recommend clinical correlation. Interpreted by Kayla Arreaga M.D.,[facility] Procedure Note Interface, Multispeciality Results - 12/26/2018 2:19 PM EDT [facility] Pulmonary Function Lab [place] [address] Last Name: SHU MORRIS Room Number: 8NW Editorial Director: GALILEA Date: 1940 Age: 78 Weight: 136.0 lbs, 61.8 kg Gender: Female Height: 64.0 in, 162.6 cm Physician Name: DUGLAS DILLARD ([id number]) Date: 12/25/2018 7:15:31 AM Smoke Status: Quit BMI: 23.39 kg/m2 Predicted Protocol: MOD 01 EigenWang NHANESIII C DENTURE LABORATORY TECHNICIAN NOTES Click "view image" for full report Spirometry Test Quality: 4 Patient unable to reach EOT due to feeling empty early on FVC and unable to match SVC to FVC after multiple attempts DLCO Test Quality: 4 DLCO Corrected to HGB of: 12.3 Patient unable to reach 85% VC on each attempt, best efforts reported Diagnosis / Reason for Test: NSTEMI, Pre OP Last Study: No previous study Good effort PHYSICIAN INTERPRETATION Good test quality and patient effort. Findings: Forced vital capacity is normal. FEV1 is normal. FEV1/VC max is normal. Airflow obstruction as suggested by the shape of the flow volume loops. Diffusion capacity when corrected for hemoglobin is severely reduced. There are no comparison studies. Impression: Borderline airflow obstruction combined with severely reduced gas exchange capacity. The reduced diffusion capacity may be due to emphysema, an alternate parenchymal process or pulmonary vascular disease. Recommend clinical correlation. Interpreted by Kayla Arreaga M.D.,[facility] Performing Organization Address [facility] Phone Number RESPIRATORY THER PARTIAL THROMBOPLASTIN TIME (12/25/2018 6:55 AM EDT) PTT 243.6 (HH) 22.8 - 34.7 SEC [facility] [facility] Specimen Blood - Blood specimen (specimen) Performing Organization Address [facility] [place] Phone Number [facility] [address] [facility] [address] [phone] TROPONIN (12/25/2018 5:08 AM EDT) Troponin 3.960 (HH) 0.000 - 0.034 [facility] Comment: ng/ml GROUP LABORATORY Negative less than or equal to 0.034 ng/ml Indeterminate 0.0351 - 0.119 ng/ml (Suggest Repeat in 4 Hours) Critical (AMI Cutoff) greater than or equal to 0.120 ng/ml Specimen Blood - Blood specimen (specimen) Performing Organization Address [facility] [place] Phone Number [facility] [address] [place] [address] URINALYSIS (LAB) WITH REFLEX CULTURE (12/25/2018 5:04 AM EDT) Urine Color Yellow Yellow [place] [facility] Urine Appearance Clear Clear [facility] Urine Glucose Negative Negative mg/dl [facility] Urine Bilirubin Negative Negative [facility] Urine Ketones Negative Negative [place] [facility] Urine Specific 1.022 1.005 - 1.030 [place] [facility] [facility] [place] [facility] Urine Blood Negative Negative [place] [facility] Urine Ph 6.5 5.0 - 8.0 [place] [facility] Urine Protein Negative Negative mg/dl [facility] Urine Urobilinogen 1.0 0.2 - 1.0 E.U./DL [facility] Urine Nitrite Negative Negative [facility] Urine Leukocytes Negative Negative [facility] Specimen Urine - Urine specimen obtained by clean catch procedure (specimen) Performing Organization Address [facility] Phone Number [facility] [address] [place] [address] [phone] CT HEAD WITHOUT IV CONTRAST (12/25/2018 1:50 AM EDT) Specimen Performing Organization Address [facility] Phone Number [facility] [address] [place] [address] PARTIAL THROMBOPLASTIN TIME (12/24/2018 10:21 PM EDT) PTT 126.4 (HH) 22.8 - 34.7 SEC [facility] Specimen Blood - Blood specimen (specimen) Performing Organization Address [facility] [place] Phone Number [facility] [address] [place] [address] CBC WITH DIFFERENTIAL (12/24/2018 10:21 PM EDT) WBC Count 9.16 3.98 - 10.04 K/uL [facility] RBC Count 4.07 3.93 - 5.22 M/UL [facility] Hemoglobin 12.3 11.2 - 15.7 g/dL [facility] Hematocrit 37.7 34.1 - 44.9 % [facility] MCV 92.6 79.4 - 94.8 FL [facility] MCH 30.2 25.6 - 32.2 PG [facility] MCHC 32.6 32.2 - 35.5 g/dL [facility] Platelet Count 261 182 - 369 K/uL [facility] MPV 11.0 9.4 - 12.3 FL [facility] RDW 13.5 11.7 - 14.4 % [facility] Neutrophil % 59.3 34.0 - 71.1 % [facility] Lymphocyte % 29.0 19.3 - 51.7 % [facility] Monocyte % 9.6 4.7 - 12.5 % [facility] Eosinophil % 1.3 0.7 - 5.8 % [facility] Basophil % 0.4 0.1 - 1.2 % [facility] nRBC % 0.0 0.0 - 0.2 % [facility] Neutrophil # 5.42 1.56 - 6.13 K/UL [facility] Lymphocyte # 2.66 1.18 - 3.74 K/UL [facility] Monocyte # 0.88 (H) 0.24 - 0.86 K/UL [facility] Eosinophil # 0.12 0.04 - 0.36 K/UL [facility] Basophil # 0.04 0.01 - 0.08 K/UL [facility] Immature Gran % 0.4 0.0 - 0.4 % [facility] Immature Gran # 0.04 (H) 0.00 - 0.03 K/uL [facility] NRBC # 0.00 0.00 - 0.12 K/uL [facility] Specimen Blood - Blood specimen (specimen) Performing Organization Address [facility] Phone Number [facility] [address] [place] [address] TROPONIN (12/24/2018 10:21 PM EDT) [facility] Troponin 3.870 (HH) 0.000 - 0.034 [facility] Comment: ng/ml [facility] Negative less than or equal to 0.034 ng/ml Indeterminate 0.0351 - 0.119 ng/ml (Suggest Repeat in 4 Hours) Critical (AMI Cutoff) greater than or equal to 0.120 ng/ml Specimen Blood - Blood specimen (specimen) Performing Organization Address [facility] Phone Number [facility] [address] [place] [address] COMPREHENSIVE METABOLIC PANEL (12/24/2018 10:21 PM EDT) [facility] Sodium 135 134 - 145 mmol/L [facility] Potassium 3.7 3.5 - 5.1 mmol/L [facility] Chloride 100 98 - 107 mmol/L [facility] CO2 25 22 - 30 mmol/L [facility] Calcium 9.6 8.3 - 10.1 mg/dl [facility] Albumin 3.7 3.5 - 5.0 g/dl [facility] BUN 13 7 - 17 mg/dl [facility] Creatinine 0.7 0.7 - 1.2 mg/dl [facility] Glucose 154 (H) 70 - 99 mg/dl [facility] Total Protein 7.5 6.3 - 8.2 g/dl [facility] Total Bilirubin 0.4 0.0 - 1.1 MG/DL [facility] AST 27 15 - 46 U/L [facility] ALT 37 9 - 52 U/L [facility] Alkaline 146 40 - 150 U/L [facility] LABORATORY eGFR >60 See Interpretation [facility] Comment: Below ml/min/1.73ml GROUP Estimated GFR Interpretation: Sq LABORATORY Above 60ml/min/1.73m2 = Normal Renal Function 30-59 ml/min/1.73m2 = Stage 3 Chronic Kidney Disease 15-29 ml/min/1.73m2 = Stage 4 Chronic Kidney Disease Less than 15 ml/min/1.73m2 = Stage 5 Chronic Kidney Disease The GFR value is calculated using the Modification of Diet in Renal Disease ( MDRD) Study Equation which can be found at: https://www.kidney.org/content/junw-pigkb-iwvebran BUN/Creatinine 19 6 - 22 RATIO [facility]ORY Anion Gap 10 3 - 11 mmol/L [facility] A/G Ratio 1.0 0.8 - 2.0 ratio [facility] Specimen Blood - Blood specimen (specimen) Performing Organization Address City/State/Zipcode Phone Number [facility] [address] [place] [address] IN PT/ED 12 LEAD EKG (12/24/2018 9:45 PM EDT) Ventricular Rate 67 BPM CARDIOLOGY DEPARTMENT Atrial rate 67 BPM CARDIOLOGY DEPARTMENT P-R Interval 186 ms CARDIOLOGY DEPARTMENT QRS Duration 88 ms CARDIOLOGY DEPARTMENT Q-T Interval 422 ms CARDIOLOGY DEPARTMENT QTC Calculation 445 ms CARDIOLOGY (Bezet) DEPARTMENT P [place] 48 degrees CARDIOLOGY DEPARTMENT R [place] -19 degrees CARDIOLOGY DEPARTMENT T [place] 57 degrees CARDIOLOGY DEPARTMENT Diagnosis Line Normal sinus rhythm CARDIOLOGY Possible Left atrial enlargement DEPARTMENT Nonspecific ST and T wave abnormality Abnormal ECG Confirmed by SHALA POND MD ([id number]) ([id number]) on 12/25/2018 2:10:02 AM Specimen Performing Organization Address City/[facility]/Zipcode Phone Number CARDIOLOGY DEPARTMENT XR CHEST 1 VIEW (12/22/2018 12:10 AM EDT) Specimen Performing Organization Address [facility] Phone Number [facility] [address] [address] [address] HEAD WITHOUT IV CONTRAST (12/22/2018 12:05 AM EDT) Specimen Performing Organization Address [facility] Phone Number [facility] [address] [place] [address] documented in this encounter Visit Diagnoses Diagnosis NSTEMI (non-ST elevated myocardial infarction) (HCC) - Primary Acute myocardial infarction, subendocardial infarction, episode of care unspecified Precordial pain Mitral valve stenosis, unspecified etiology Aortic valve stenosis, etiology of cardiac valve disease unspecified 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 Coronary atherosclerosis of mi'kmaq coronary artery Mixed hyperlipidemia Hypertension Unspecified essential hypertension Dementia (HCC) Dementia, unspecified, without behavioral disturbance Depression Depressive disorder, not elsewhere classified GERD (gastroesophageal reflux disease) Esophageal reflux COPD (chronic obstructive pulmonary disease) (HCC) Chronic airway obstruction, not elsewhere classified Coronary artery disease Coronary atherosclerosis of unspecified type of vessel, mi'kmaq or graft documented in this encounter Administered Medications Medication Order MAR Action Action Date Dose Rate Site albuterol-ipratropium (DUO-NEB) Given 12/27/2018 12:24 PM EDT 3 mg nebulizer unit dose (RT ADMIN) 0.5-2.5 (3) MG/3ML 3 mg, Inhalation-SVN, RT Q4 HRS W/A, Starting 12/24/18 at 2240, Until 12/27/18 at 1433, PER RT FREQUENCY Given 12/27/2018 7:55 AM EDT 3 mg Given 12/26/2018 7:43 PM EDT 3 mg aspirin (ECOTRIN) enteric coated tablet 81 mg Given 12/27/2018 9:04 AM EDT 81 mg 81 mg, Oral, DAILY, First dose on [place] 12/25/18 at 0900, Until Discontinued Given 12/25/2018 8:55 AM EDT 81 mg atorvastatin (LIPITOR) tablet 80 mg Given 12/26/2018 9:04 PM EDT 80 mg 80 mg, Oral, QHS, First dose on Sat12/24/18 at 2240, Until Discontinued Given 12/25/2018 9:23 PM EDT 80 mg Given 12/24/2018 11:03 PM EDT 80 mg baclofen (LIORESAL) tablet (1/2x10 mg) 5 mg Given 12/25/2018 9:00 AM EDT 5 mg 5 mg, Oral, DAILY PRN, Starting [place] 12/25/18 at 0502, Until 12/27/18 at 1433, Muscle Spasm - 1st line busPIRone (BUSPAR) tablet (1/2 X 5 mg) 7.5 Given 12/27/2018 10:48 AM EDT 7.5 mg mg 7.5 mg, Oral, TID, First dose on Sat12/24/18 at 2240, Until Discontinued Given 12/26/2018 9:06 PM EDT 7.5 mg Given 12/26/2018 5:00 PM EDT 7.5 mg ceftriaxone (ROCEPHIN) 1,000 mg in New Bag 12/24/2018 11:03 PM EDT 1,000 mg dextrose 5% INJ mini-bag (WHEN ACTIVATED) 1,000 mg, Intravenous, Q24 HRS, 3 doses, First dose on Sat12/24/18 at 2300, Last dose on Sat12/26/18 at 2300 eptifibatide (INTEGRILIN) IV Rate Verify 12/26/2018 1:16 PM EDT 10 mL/hr 10 mL/hr injection 10 mL/hr, at 10 mL/hr, Intravenous, CONTINUOUS, Starting Sat12/26/18 at 1310, Until Sat12/26/18 at 1915 heparin in dextrose 5% IV Rate Verify 12/26/2018 8:12 AM 1,300 Units/hr 13 mL/hr premix 100 units/mL EDT 750 Units/hr (7.5 mL/hr), Intravenous, at 7.5 mL/hr, TITRATE, Starting Sat12/24/18 at 2240, Until Sat12/26/18 at 1312 Rate Verify 12/26/2018 3:45 AM EDT 1,300 Units/hr 13 mL/hr Rate Change 12/25/2018 10:27 PM EDT 1,300 Units/hr 13 mL/hr hydrochlorothiazide (HCTZ, ORETIC) tablet 25 Given 12/27/2018 9:05 AM EDT 25 mg mg 25 mg, Oral, DAILY, First dose on Sat12/25/18 at 0950, Until Discontinued Given 12/25/2018 11:58 AM EDT 25 mg levothyroxine (SYNTHROID) tablet 75 mcg Given 12/27/2018 6:13 AM EDT 75 mcg 75 mcg, Oral, PRE BREAKFAST, First dose on Sat12/25/18 at 0600, Until Discontinued magnesium sulfate IV premix 2 g New Bag 12/26/2018 4:10 AM EDT 2 g 2 g, Intravenous, Q1 HR, 1 dose, First dose on Sat12/26/18 at 0400 magnesium sulfate IV premix 2 g New Bag 12/27/2018 6:13 AM EDT 2 g 2 g, Intravenous, Q1 HR, 1 dose, First dose on Sat12/27/18 at 0700 metoprolol (LOPRESSOR) tablet (1/2X25mg) Given 12/27/2018 9:05 AM EDT 12.5 mg 12.5 mg 12.5 mg, Oral, BID, First dose on Sat12/24/18 at 2240, Until Discontinued Given 12/26/2018 9:04 PM EDT 12.5 mg Given 12/25/2018 9:22 PM EDT 12.5 mg mometasone furo-formoterol fum (DULERA) Given 12/26/2018 9:06 PM EDT 2 INHL 100-5 MCG/ACT inhalation (Supervised Pt Admin) 2 INHL 2 INHL, Inhalation, BID, 4 doses, First dose on Sat12/25/18 at 0900, Last dose on Sat12/26/18 at 2100 Given 12/25/2018 10:30 PM EDT 2 INHL mometasone furo-formoterol fum (DULERA) Given 12/25/2018 7:39 AM EDT 1 INHL inhalation 100-5 mcg/dose (RT ADMIN) 2 INHL, Inhalation, RT BID, Starting Sat12/24/18 at 2239, Until Sat12/25/18 at 0744, PER RT FREQUENCY nitroglycerin IV premix 50 Rate Verify 12/26/2018 8:11 AM EDT 12 mcg/min 3.6 mL/hr mg/250 mL 12 mcg/min (3.6 mL/hr), Intravenous, at 3.6 mL/hr, DRIP, Starting Sat12/24/18 at 2350, Until Sat12/26/18 at 0813 Rate Verify 12/25/2018 10:27 PM EDT 12 mcg/min 3.6 mL/hr Rate Verify 12/25/2018 7:51 PM EDT 12 mcg/min 3.6 mL/hr nitroglycerin IV premix 50 Rate Change 12/26/2018 8:15 AM EDT 6 mcg/min 1.8 mL/hr mg/250 mL 6 mcg/min (1.8 mL/hr), Intravenous, at 1.8 mL/hr, DRIP, Starting Sat12/26/18 at 0820, Until Sat12/26/18 at 0833 normal saline IV Rate Verify 12/26/2018 8:12 AM EDT 100 mL/hr Intravenous, at 100 mL/hr, CONTINUOUS, Starting [place] 12/25/18 at 1800, Until Sat12/26/18 at 1318, 2 Day of Surgery Pre Procedure New Bag 12/26/2018 6:18 AM EDT 100 mL/hr normal saline IV New Bag 12/26/2018 1:26 PM EDT 75 mL/hr Intravenous, at 75 mL/hr, CONTINUOUS, Starting Sat12/26/18 at 1320, Until Sat12/26/18 at 1915 ondansetron (ZOFRAN) injection 4 mg Given 12/26/2018 6:39 AM EDT 4 mg 4 mg, Intravenous Push, X1, 1 dose, First dose on Sat12/26/18 at 0640 ondansetron (ZOFRAN) injection 4 mg Given 12/26/2018 8:22 AM EDT 4 mg 4 mg, Intravenous Push, Q8 HRS PRN, Starting Sat12/26/18 at 0813, Until 12/27/18 at 1433, Nausea/Vomiting - IV - 1st line - If immediate effect required or patient cannot tolerate PO oxybutynin (DITROPAN) tablet 5 mg Given 12/27/2018 9:05 AM EDT 5 mg 5 mg, Oral, BID, First dose on Sat12/25/18 at 0900, Until Discontinued Given 12/26/2018 9:04 PM EDT 5 mg Given 12/25/2018 9:23 PM EDT 5 mg OXYcodone (OXY-IR,OXY-FAST) immediate release Given 12/25/2018 5:03 AM EDT 10 mg tablet 10 mg 10 mg, Oral, Q8 HRS PRN, Starting Sat12/24/18 at 2242, Until Sat12/25/18 at 0504, Moderate Pain (pain scale 4-6) - PO - 1st line - if immediate effect not required and patient can tolerate PO OXYcodone (OXY-IR,OXY-FAST) immediate release Given 12/27/2018 12:26 AM EDT 10 mg tablet 10 mg 10 mg, Oral, Q8 HRS PRN, Starting Sat12/25/18 at 0503, Until 12/27/18 at 1433, Moderate Pain (pain scale 4-6) - PO - 1st line - if immediate effect not required and patient can tolerate PO, Severe Pain (pain scale 7-10) - PO - 1st line - if immediate effect not required and patient can tolerate PO Given 12/26/2018 5:58 PM EDT 10 mg Given 12/25/2018 5:03 PM EDT 10 mg potassium bicarb-citric acid (EFFER-K) Given 12/27/2018 6:13 AM EDT 40 mEq effervescent tablet (for oral solution) 40 mEq 40 mEq, Oral, X1, 1 dose, First dose on 12/27/18 at 0700 prochlorperazine (COMPAZINE) injection 5 mg Given 12/26/2018 4:35 AM EDT 5 mg 5 mg, Intravenous Push, Q6 HRS PRN, Starting Sat12/26/18 at 0430, Until Sat12/26/18 at 0813, Nausea/Vomiting - IV - 1st line - If immediate effect required or patient cannot tolerate PO quinapril (ACCUPRIL) tablet 10 mg Given 12/27/2018 9:05 AM EDT 10 mg 10 mg, Oral, DAILY, First dose on Sat12/25/18 at 0900, Until Discontinued Given 12/25/2018 8:55 AM EDT 10 mg SODIUM CHLORIDE 0.9 % IV SOLN 1 dose, Starting Sat12/26/18 at 0611, Until Sat12/26/18 at 0618, Jennifer Paredes : cabinet override, SODIUM CHLORIDE 0.9 % IV SOLN 1 dose, Starting Sat12/26/18 at 1324, Until 12/27/18 at 1433, Zoraida Sanders: cabinet override, ticagrelor (BRILINTA) tablet 90 mg Given 12/27/2018 9:05 AM EDT 90 mg 90 mg, Oral, BID, First dose on Sat12/26/18 at 2100, Until Discontinued Given 12/26/2018 9:03 PM EDT 90 mg trazodone (DESYREL) tablet 100 mg Given 12/26/2018 9:04 PM EDT 100 mg 100 mg, Oral, QHS PRN, Starting Sat12/24/18 at 2236, Until 12/27/18 at 1433, Sleep/Insomnia - 1st line Given 12/25/2018 9:23 PM EDT 100 mg documented in this encounter Insurance Payer Benefit Plan / Subscriber ID Effective Dates Phone Address Type Group MEDICARE MEDICARE PART A xxxxxxxxxxx 2006-Present Medicare & B MEDICAID [facility] xxxxxxxx 2016-Present [place] documented as of this encounter Advance Directives Code Status Date Activated Date Inactivated Comments Full Code 12/24/2018 10:04 PM Does the patient have decision making capacity? Yes Order was discussed with: Patient I discussed all options and patient/surrogate requested and agreed to: Full Code
[2018-12-30 19:08] LABS: ABS Basophils 0.1 10^3/ul (0-0.2); ABS Eosinophils 0.3 10^3/ul (0-0.6); ABS Lymphocytes 1.6 10^3/ul (1.0-4.8); ABS Monocytes 0.8 10^3/ul (0-0.8); Eosinophil % 3.7 %; Hematocrit 37 % (35-47); Hemoglobin 12.3 g/dL (12.0-16.0); Mean Corpuscular HGB Conc 33 g/dL (31-36); Mean Corpuscular Hemoglobin 31 pg (27-31); Mean Corpuscular Volume 93 fL (80-97); Mean Platelet Volume 8.1 fL (7.4-10.4); Platelet Count 362 10^3/uL (150-450); Red Blood Count 3.98 10^6 /uL (3.70-4.87); Red Cell Distribution Width 14 % (10-15); White Blood Count 7.8 10^3/uL (3.5-10.8)
[2018-12-30 19:14] LABS: INR 1.04 (0.82-1.09)
[2018-12-30 19:25] LABS: ALT 20 U/L (7-52); AST 18 U/L (13-39); Albumin 3.7 g/dL (3.2-5.2); Albumin/Globulin Ratio 1.1 (1-3); Alkaline Phosphatase 106 U/L (34-104); Anion Gap 6 mmol/L (2-11); BUN/Creatinine Ratio 19.1 (8-20); Blood Urea Nitrogen 25 mg/dL (6-24); CO2 Carbon Dioxide 28 mmol/L (22-32); Calcium 9.6 mg/dL (8.6-10.3); Chloride 99 mmol/L (101-111); EGFR African American 47.6 (>60); EGFR Non-African American 39.4 (>60); Globulin 3.3 g/dL (2-4); Glucose 121 mg/dL (70-100); Potassium 3.6 mmol/L (3.5-5.0); Sodium 133 mmol/L (135-145)
[2018-12-30 19:34] LABS: Troponin I 2.63 ng/mL (<0.04)
[2018-12-30 19:40] LABS: Activated Partial Thrombo Time 33.8 seconds (26.0-38.0)
--- NOTE | 2018-12-30 19:41 | ED ---
HPI Cardiac - HPI Summary HPI Summary: Pt is a 78 y/o F presenting to the ED for a chief complaint of chest pain. Pt recently had a non-STEMI OK diagnosed at [facility] on 12/22/18. She had cardiac catheterization by Dr. Galvan which showed diffuse disease and severe mitral stenosis. The patient's troponin peaked at 5.25 on 12/22/18 at [facility]. At the time of transfer on 12/24/18 her troponin was 2.77 at [facility]. She was transferred to [facility] on 12/24/18 for possible cardiac bypass and valve surgery. She had cardiac catheterization at [facility] on 12/26/18. Per family patient did not have bypass surgery but had 3 stents placed. He was discharged on 12/27/18 on Brillinta 90mg bid and aspirin, which she has continued to take in addition to her other medications. Patient felt well on 12/27/18 but later that day had more chest pain and shortness of breath. She presents to [facility] ED today by private car with SOB, CP, chest heaviness and pressure, nausea, and headache, accompanied by her daughter. Pts daughter states pt is disoriented. Pt cannot eat because she dry heaves and has dark sputum. Pt denies vomiting, or wheezing. Pts symptoms have been worsening since 12/27/18. Pt is taking aspirin 81 mg and last took aspirin 81 mg on 12/30/18. Pt denies smoking at the present time, but has a previous history of tobacco use. Pt denies alcohol or marijuana use. Pt has a FMHx of heart disease and a PMHx of HTN and anxiety, hypercholesterolemia, DMII and thyroid problems. Allergies noted. Pt is present with her daughter. - History of Current Complaint Chief Complaint: EDChestPainROMI Stated Complaint: CHEST PAIN PER PT Hx Obtained From: Patient, Family/Auger Supervisor - daughterChris Last Menstrual Period: post menopause Onset/Duration: Started Days Ago, Atraumatic, Still Present, Worse Since - 12/27 Timing: Constant, Lasting Days Initial Severity: Moderate Current Severity: Severe Pain Intensity: 8 Pain Scale Used: 0-10 Numeric Chest Pain Location: Diffuse Chest Pain Radiates: No Character: Heaviness, Pressure/Squeezing Aggravating Factor(s): Nothing Alleviating Factor(s): Nothing Associated Signs and Symptoms: Positive: Chest Pain, Headaches, Shortness of Breath, Nausea, Other: - Positive disorientation, chest pressure, chest heaviness, dry heaving, dark sputum; negative wheezing, fever.. Negative: Vomiting Related History: Similar Episode/Dx as: - NSTEMI - Additional Pertinent History Primary Care Physician: [id number] - Allergy/Home Medications Allergies/Adverse Reactions: Allergies Allergy/AdvReac Type Severity Reaction Status Date / Time oxycodone [From OxyContin] Allergy Hallucinati Verified 12/24/18 16:20 ons Sulfa (Sulfonamide Allergy Hives Verified 12/30/18 18:50 Antibiotics) Home Medications: Home Medications Albuterol 2.5MG/3ML (0.083%)* [Ventolin 2.5 MG/3 ML NEB.JORGE*] 2.5 mg INH Q6H PRN 12/30/18 [History Confirmed 12/30/18] Aspirin EC TAB* [Ecotrin EC Low Dose 81 MG*] 81 mg PO DAILY 12/30/18 [History Confirmed 12/30/18] Atorvastatin* [Lipitor*] 40 mg PO DAILY 12/30/18 [History Confirmed 12/30/18] Esomeprazole(NF) [NexIUM(NF)] 40 mg PO BID 12/30/18 [History Confirmed 12/30/18] Gabapentin CAP(*) [Neurontin 100 mg CAP(*)] 100 mg PO TID 12/30/18 [History Confirmed 12/30/18] Hydrochlorothiazide TAB* [Hydrodiuril TAB*] 25 mg PO DAILY 12/30/18 [History Confirmed 12/30/18] Hydrocodone Bitartrate [Zohydro ER] 15 mg PO BID 12/30/18 [History Confirmed 04/19] Ipratropium Br (Nf)0.03% Nasal [Ipratropium Cl[place]] 2 spray BOTH NARES DAILY [History Confirmed 12/30/18] Levothyroxine TAB* [Synthroid TAB*] 50 mcg PO DAILY 12/30/18 [History Confirmed 12/30/18] Metoprolol Tartrate TAB* [Lopressor TAB*] 12.5 mg PO BID 12/30/18 [History Confirmed 12/30/18] Oxycodone IR 10 MG(NF) 15 mg PO Q4HR PRN 12/30/18 [History Confirmed 12/30/18] Ticagrelor* [Brilinta*] 90 mg PO BID 12/30/18 [History Confirmed 12/30/18] Venlafaxine EXT RELEASE CAP* [Effexor Xr CAP*] 150 mg PO DAILY 12/30/18 [ History Confirmed 12/30/18] PMH/Surg Hx/FS Hx/Imm Hx Previously Healthy: No Endocrine/Hematology History: Reports: Hx Diabetes - type 2 dm, Hx Thyroid Disease - hypothyroid Denies: Hx Systemic Lupus Erythematosus Cardiovascular History: Reports: Hx Aneurysm - AAA, Hx Angina, Hx Coronary Artery Disease, Hx Hypercholesterolemia, Hx Hypertension, Hx Myocardial Infarction, Hx Rheumatic Fever, Hx Valvular Heart Disease - severe mitral stenosis on ECHO 11/2018, Other Cardiovascular Problems/Disorders - heart murmer since 16 years old Denies: Hx Congestive Heart Failure, Hx Pacemaker/ICD Respiratory History: Reports: Hx Chronic Obstructive Pulmonary Disease (COPD), Hx Seasonal Allergies Denies: Hx Asthma, Other Respiratory Problems/Disorders GI History: Reports: Hx Gastroesophageal Reflux Disease, Hx Hiatal Hernia Denies: Hx Ulcer History: Reports: Hx Renal Disease - hx of cyst removal Denies: Hx Dialysis Musculoskeletal History: Reports: Hx Arthritis - BILATERAL KNEES, BACK, BILATERAL HANDS, Hx Back Problems, Hx Osteoporosis Denies: Hx Rheumatoid Arthritis Sensory History: Denies: Hx Contacts or Glasses, Hx Hearing Aid Opthamlomology History: Denies: Hx Contacts or Glasses Neurological History: Reports: Hx Dementia, Hx Headaches, Hx Migraine, Hx Seizures, Other Neuro Impairments/Disorders - COMPRESSION FX T9,T10,T11 AND L1 Psychiatric History: Reports: Hx Anxiety, Hx Depression Denies: Hx Panic Disorder, Hx Substance Abuse - Cancer History Cancer Type, Location and Year: MELANOMA Hx Chemotherapy: No Hx Radiation Therapy: No Hx Palliative Cancer Treatment: No - Surgical History Surgery Procedure, Year, and Place: CATARACTS; PARTIAL THYROIDECTOMY; PAVAN; HYSTERECTOMY; T&A; APPENDECTOMY; CYST REMOVED FROM KIDNEY; BACK SURGERY; MELANOMA REMOVED FROM LEFT ARM; NASAL SURGERY Hx Anesthesia Reactions: No - Immunization History Date of Tetanus Vaccine: Unk Infectious Disease History: Yes Infectious Disease History: Reports: Hx Shingles Denies: Hx Hepatitis, Hx Human Immunodeficiency Virus (HIV), History Other Infectious Disease, Traveled Outside the [place] in Last 30 Days - Family History Known Family History: Positive: Cardiac Disease - CHF, Other - CANCER - Social History Alcohol Use: None Hx Substance Use: No Substance Use Type: Reports: None Hx Tobacco Use: Yes Smoking Status (MU): Former Smoker - recently quit, heavy smoker in past Type: Cigarettes Amount Used/How Often: 1/2 PPD Length of Time of Smoking/Using Tobacco: 60 years Have You Smoked in the Last Year: Yes Review of Systems Negative: Fever Positive: Other - Dark sputum; negative wheezing Positive: Chest Pain, Other - Positive chest pressure and chest heaviness Positive: Shortness Of Breath, Other - dark sputum Positive: Nausea - with dry heaves. Negative: Vomiting Positive: no symptoms reported Musculoskeletal: Negative Positive: Bruising Neurological: Other - Positive disorientation per daughter Positive: Headache Psychological: Normal All Other Systems Reviewed And Are Negative: Yes Physical Exam - Summary Physical Exam Summary: Appearance: Ill-appearing, severe pain distress, well-nourished Skin: Warm, color reflects adequate perfusion, dry, multiple ecchymoses Head: Normal Head/Face inspection, atraumatic Eyes: Conjunctiva clear ENT: Normal inspection Neck: Supple, no nodes, no JVD Respiratory: decreased BS throughout, no respiratory distress Cardio: RRR, No murmur, pulses normal, brisk capillary refill Abdomen: Soft, nontender Bowel sounds: Present Musculoskeletal: Strength Intact/ROM intact, no calf tenderness, no edema. Psychological: Normal Neuro: Alert, muscle tone normal, no focal deficit Triage Information Reviewed: Yes Vital Signs On Initial Exam: Initial Vitals Temp Pulse Resp BP Pulse Ox 97.9 F 58 18 156/54 96 12/30/18 18:46 12/30/18 18:46 12/30/18 18:46 12/30/18 18:46 12/30/18 18:46 Vital Signs Reviewed: Yes Procedures - Sedation Patient Received Moderate/Deep Sedation with Procedure: No Diagnostics - Vital Signs Vital Signs Temp Pulse Resp BP Pulse Ox 12/30/18 18:46 97.9 F 58 18 156/54 96 - Laboratory Lab Results: Lab Results 12/30/18 12/30/18 12/30/18 Range/Units 18:59 18:59 18:59 WBC 7.8 (3.5-10.8) 10^3/uL RBC 3.98 (3.70-4.87) 10^6 /uL Hgb 12.3 (12.0-16.0) g/dL Hct 37 (35-47) % MCV 93 (80-97) fL MCH 31 (27-31) pg MCHC 33 (31-36) g/dL RDW 14 (10-15) % Plt Count 362 (150-450) 10^3/uL MPV 8.1 (7.4-10.4) fL Neut % (Auto) 64.4 % Lymph % (Auto) 20.0 % [place] % (Auto) 10.6 % Eos % (Auto) 3.7 % Baso % (Auto) 1.3 % Absolute Neuts (auto) 5.0 (1.5-7.7) 10^3/ul Absolute Lymphs (auto) 1.6 (1.0-4.8) 10^3/ul Absolute Monos (auto) 0.8 (0-0.8) 10^3/ul Absolute Eos (auto) 0.3 (0-0.6) 10^3/ul Absolute Basos (auto) 0.1 (0-0.2) 10^3/ul Absolute Nucleated RBC 0.0 10^3/ul Nucleated RBC % 0.0 INR (Anticoag Therapy) 1.04 (0.82-1.09) APTT 33.8 (26.0-38.0) seconds D-Dimer, Quantitative 574 H (Less Than 230) ng/mL Sodium 133 L (135-145) mmol/L Potassium 3.6 (3.5-5.0) mmol/L Chloride 99 L (101-111) mmol/L Carbon Dioxide 28 (22-32) mmol/L Anion Gap 6 (2-11) mmol/L BUN 25 H (6-24) mg/dL Creatinine 1.31 H (0.51-0.95) mg/dL Est GFR ( Amer) 47.6 (>60) Est GFR (Non-Af Amer) 39.4 (>60) BUN/Creatinine Ratio 19.1 (8-20) Glucose 121 H (70-100) mg/dL Lactic Acid (0.5-2.0) mmol/L Calcium 9.6 (8.6-10.3) mg/dL Total Bilirubin 0.50 (0.2-1.0) mg/dL AST 18 (13-39) U/L ALT 20 (7-52) U/L Alkaline Phosphatase 106 H (34-104) U/L Total Creatine Kinase Pending CK-MB (CK-2) Pending Troponin I 2.63 H* (<0.04) ng/mL Total Protein 7.0 (6.4-8.9) g/dL Albumin 3.7 (3.2-5.2) g/dL Globulin 3.3 (2-4) g/dL Albumin/Globulin Ratio 1.1 (1-3) TSH Pending Thyroxine (T4) Pending 12/30/18 Range/Units 18:59 WBC (3.5-10.8) 10^3/uL RBC (3.70-4.87) 10^6 /uL Hgb (12.0-16.0) g/dL Hct (35-47) % MCV (80-97) fL MCH (27-31) pg MCHC (31-36) g/dL RDW (10-15) % Plt Count (150-450) 10^3/uL MPV (7.4-10.4) fL Neut % (Auto) % Lymph % (Auto) % [place] % (Auto) % Eos % (Auto) % Baso % (Auto) % Absolute Neuts (auto) (1.5-7.7) 10^3/ul Absolute Lymphs (auto) (1.0-4.8) 10^3/ul Absolute Monos (auto) (0-0.8) 10^3/ul Absolute Eos (auto) (0-0.6) 10^3/ul Absolute Basos (auto) (0-0.2) 10^3/ul Absolute Nucleated RBC 10^3/ul Nucleated RBC % INR (Anticoag Therapy) (0.82-1.09) APTT (26.0-38.0) seconds D-Dimer, Quantitative (Less Than 230) ng/mL Sodium (135-145) mmol/L Potassium (3.5-5.0) mmol/L Chloride (101-111) mmol/L Carbon Dioxide (22-32) mmol/L Anion Gap (2-11) mmol/L BUN (6-24) mg/dL Creatinine (0.51-0.95) mg/dL Est GFR ( Amer) (>60) Est GFR (Non-Af Amer) (>60) BUN/Creatinine Ratio (8-20) Glucose (70-100) mg/dL Lactic Acid 1.0 (0.5-2.0) mmol/L Calcium (8.6-10.3) mg/dL Total Bilirubin (0.2-1.0) mg/dL AST (13-39) U/L ALT (7-52) U/L Alkaline Phosphatase (34-104) U/L Total Creatine Kinase CK-MB (CK-2) Troponin I (<0.04) ng/mL Total Protein (6.4-8.9) g/dL Albumin (3.2-5.2) g/dL Globulin (2-4) g/dL Albumin/Globulin Ratio (1-3) TSH Thyroxine (T4) Result Diagrams: 12/30/18 18:59 12/30/18 18:59 Lab Statement: Any lab studies that have been ordered have been reviewed, and results considered in the medical decision making process. - EKG 18:35 Cardiac Rate: NL - 60 BPM EKG Rhythm: 1st Degree HB - 208 ST Segment: Normal Ectopy: None EKG Comparison: No Significant Change Summary of EKG Findings: EKG at 18:35 on 12/30/18 shows sinus rhythm with 60 bpm , first degree AV block (208), normal IVCT, normal QTc, flat STs throughout. Compared with 12/24/18, ST segments less depressed in V2-V6. Reviewed and interpreted by ED physician. 19:38 Cardiac Rate: Bradycardia - 57 BPM EKG Rhythm: 1st Degree HB - 213 ST Segment: Non-Specific Ectopy: None EKG Comparison: No Significant Change Summary of EKG Findings: EKG at 19:38: EKG at 19:38: sinus bradycardia at 57 bpm with first degree av block (213), normal IVCT, normal QTc, no change compared with 18:35, no acute changes. Reviewed and interpreted by ED physician. 2128 Cardiac Rate: NL EKG Rhythm: 1st Degree HB ST Segment: Non-Specific Ectopy: None EKG Comparison: No Significant Change - c/w 1938. Summary of EKG Findings: SR, 1st degree AVB, no acute changes Re-Evaluation - Re-Evaluation First Eval Re-Evaluation Time: 19:40 Change: Unchanged Comment: Troponin is 2.63. Will repeat EKG. No change, not a STEMI. Pt continues with 8/10 chest pain. Will give morphine. Second Eval Re-Evaluation Time: 20:06 Change: Unchanged Comment: Pt still with chest pain 5/10. Will start nitroglycerin drip. Advised she will be transferred to [facility] for comprehensive cardiac care, with possibility for cardiothoracic surgery. Third Eval Re-Evaluation Time: 21:35 Change: Improved Comment: Pt's pain is a zero on 5mcg/min of NTG. BP 102 systolic. Will DC nitro drip and apply nitropaste 2inches. Disposition - Course Course Of Treatment: 78 yo F with hx NSTEMI on 12/22/18 at [facility], transferred to [facility] for possible cardiothoracic surgery. Had 3 stents placed on 12/26/18 at [facility] and was discharged on 12/27/18. Patient returns today with continued chest pressure and shortness of breath and has elevated troponin of 2.36 and is transferred for further evaluation and possibility for cardiothoracic care. EKG at 18:35 on 12/30/18 shows sinus rhythm with 60 bpm, first degree AV block (208) , normal IVCT, normal QTc, flat STs throughout. Compared with 12/24/18, ST segments less depressed in V2-V6. EKG at 19:38: sinus lavern at 57 bpm with first degree av block (213), normal IVCT, normal QTc, , no change compared with 18:35, no acute changes. Laboratory abnormal findings: D-dimer, quantitative 574, sodium 133, chloride 99, BUN 25, Creatinine 1.31, glucose 121, alkaline phosphatase 106, troponin I 2.63, B-natriuretic peptide 106, and TSH 10.33. At 19:58, I spoke with Dr. Monzon, hospitalist, who advises consult cardiology. At 20:06, I consulted with Dr. Joseph who advises to transfer the pt to [facility] comprehensive cardiothoracic care, with possibility of cardiothoracic surgery. Pt will be transferred to [facility], [place] for further evaluation. Pt is high risk for stent occlusion. At 20:22, I contacted the transfer center at [facility] who will call us back to speak to cardiology. At 20:46, I spoke with Dr. Galaviz who will be accepting the pt as a transfer for elevated troponin, NSTEMI and chest pain with possibility of cardiothoracic intervention. Pt and daughter agree to transfer. At 2124 pt is pain free, BP 102 systolic, and NTG drip will be DC'd and nitropaste 2 inches to be applied. Pt confirms that she is a full code. - Differential Dx - Cardiopulmonary Differential Diagnoses - Cardiopulmonary: Acute Coronary, CAD, CHF, Myocardial Infarction - Diagnoses Provider Diagnoses: Chest pain, Elevated troponin, NSTEMI (non-ST elevated myocardial infarction), CAD (coronary artery disease), S/P coronary artery stent placement - Physician Notifications Discussed Care Of Patient With: Jeovany Joseph - At 20:06, I consulted with Dr. Joseph who agrees to transfer the pt to [facility] due to bypass capability. Pt will be transferred to [place] for stent occlusion. Time Discussed With Above Provider: 20:06 Instructed by Provider To: Other - At 20:22, I contacted the transfer center at [facility] who will call us back to speak to cardiology. At 20:46, I spoke with Dr. Galaviz who will be accepting the pt as a transfer. - Critical Care Time Critical Care Time: 30-74 min - 70 min Discharge ED - Sign-Out/Discharge Documenting (check all that apply): Patient Departure - Transfer - Discharge Plan Condition: Stable Disposition: TRANS HIGHER LVL OF CARE FAC Referrals: Martha Bennett MD [Primary Care Provider] - - Billing Disposition and Condition Condition: STABLE Disposition: Trans Higher Lvl of Care Fac - Attestation Statements Document Initiated by Scribe: Yes Documenting Scribe: Jelly Lucas Provider For Whom Helga is Documenting (Include Credential): Rosie Escobar MD. Scribe Attestation: Jelly Bernal scribed for Rosie Escobar MD. on 12/30/18 at 2137. Scribe Documentation Reviewed: Yes Provider Attestation: The documentation as recorded by the Jelly moore accurately reflects the service I personally performed and the decisions made by me, Rosie Escobar MD. Status of Scribe Document: Viewed
[2018-12-30 19:47] LABS: Creatine Kinase 59 U/L (10-223)
[2018-12-30 19:52] LABS: CKMB ng/mL 2.3 ng/mL (0.6-6.3)
[2018-12-30 20:02] LABS: T4, Total 7.78 mcg/dL (6.09-12.23)
[2018-12-30 20:08] LABS: TSH (Thyroid Stimulating Horm) 10.33 mcIU/mL (0.34-5.60)
[2018-12-30] MEDS: nitroGLYCERIN DRIP* 25,000 MCG/250 ML BTL IV ONE (20:39)
[2018-12-30] MEDS: Ticagrelor* 90 MG TAB PO ONE (20:45)
[2018-12-30] MEDS: Aspirin 81 mg CHEW TAB* 81 MG TAB.CHEW PO ONE (20:46)
[2018-12-30] MEDS: Ondansetron INJ* 2 MG/ML VIAL IV ONE (20:47)
[2018-12-30] MEDS: Morphine 4 MG/ML VIAL (1 ml) 4 MG/ML VIAL IV ONE (20:50)
[2018-12-30] MEDS: Nitro 2% OINT* (Nitroglycerin) 1 INCH/PAK PAK TOPICAL ONE (22:03)
[2018-12-30 22:38] VITALS: BP 0/0
[2018-12-30 22:43] LABS: Troponin I 2.74 ng/mL (<0.04)
== END 2018-12-30 22:37 | disposition short-term general hospital (02) ==
LOC: ED 18:33
DX: I21.4 Non-ST elevation (NSTEMI) myocardial infarction (principal); I25.10 Atherosclerotic heart disease of native coronary artery without angina pectoris; R79.89 Other specified abnormal findings of blood chemistry; Z95.5 Presence of coronary angioplasty implant and graft; E11.9 Type 2 diabetes mellitus without complications; E03.9 Hypothyroidism, unspecified; E78.00 Pure hypercholesterolemia, unspecified; J44.9 Chronic obstructive pulmonary disease, unspecified; K21.9 Gastro-esophageal reflux disease without esophagitis; F03.90 Unspecified dementia, unspecified severity, without behavioral disturbance, psychotic disturbance, mood disturbance, and anxiety; F41.9 Anxiety disorder, unspecified; F32.9 Major depressive disorder, single episode, unspecified; Z90.710 Acquired absence of both cervix and uterus; Z90.49 Acquired absence of other specified parts of digestive tract; Z85.820 Personal history of malignant melanoma of skin; Z87.891 Personal history of nicotine dependence; Z79.01 Long term (current) use of anticoagulants; Z79.82 Long term (current) use of aspirin; Z79.890 Hormone replacement therapy; Z79.899 Other long term (current) drug therapy; Z88.5 Allergy status to narcotic agent; Z88.2 Allergy status to sulfonamides
CPT/HCPCS: 36415; 71045; 80053; 82550; 82553; 83605; 83880; 84436; 84443; 84484; 85025; 85379; 85610; 85730; 93005; 96365; 96375; 99285; A9270-GY; J2270; J2405

== ENCOUNTER 2019-01-06 14:05 | Observation (INO) | payer MEDICARE, MEDICAID ==
--- NOTE | 2019-01-06 14:49 | ED ---
HPI Chest Pain - HPI Summary HPI Summary: The patient is a 78 y/o F presenting to [facility] accompanied by daughter with a chief complaint of sudden onset chest pain onset three hours ago while at rest laying down. In addition to the chest pain, she is experiencing shortness of breath and nausea. She denies any cough or dizziness. Currently, her symptoms are rated 7/10 in severity. She last had this pain about a week ago. Her daughter notes that the patient had a PA two weeks ago, was discharged, ended up back at [facility], but then was transferred to [place] for possible open heart surgery, but she is no longer a candidate secondary to respiratory status, and she only have three stents placed. PMHx: DM, hypothyroid disease, aneurysm, angina, CAD, HLD, HTN, PA, mitral stenosis, COPD, dementia, seizures, shingles. FHx: cardiac disease. Former smoker, no EtOH, no substance use. Medications reviewed. Allergies noted. - History of Current Complaint Chief Complaint: EDChestPainROMI Time Seen by Provider: 01/06/19 14:37 Hx Obtained From: Patient Hx Last Menstrual Period: post menopause Onset/Duration: Started Hours Ago - three, Still Present Timing: Lasting Hours Initial Severity: Moderate Current Severity: Moderate Pain Intensity: 7 Pain Scale Used: 0-10 Numeric Chest Pain Location: Diffuse Chest Pain Radiates: No Character: Sharp/Stabbing Aggravating Factor(s): Nothing Alleviating Factor(s): Nothing Associated Signs and Symptoms: Positive: Chest Pain, Shortness of Breath, Nausea. Negative: Dizziness, Cough, Vomiting - Additional Pertinent History Primary Care Physician: [id number] - Allergy/Home Medications Allergies/Adverse Reactions: Allergies Allergy/AdvReac Type Severity Reaction Status Date / Time oxycodone [From OxyContin] Allergy Hallucinati Verified 12/24/18 16:20 ons Sulfa (Sulfonamide Allergy Hives Verified 12/30/18 18:50 Antibiotics) PMH/Surg Hx/FS Hx/Imm Hx Endocrine/Hematology History: Reports: Hx Diabetes - type 2 dm, Hx Thyroid Disease - hypothyroid Denies: Hx Systemic Lupus Erythematosus Cardiovascular History: Reports: Hx Aneurysm - AAA, Hx Angina, Hx Coronary Artery Disease, Hx Hypercholesterolemia, Hx Hypertension, Hx Myocardial Infarction, Hx Rheumatic Fever, Hx Valvular Heart Disease - severe mitral stenosis on ECHO 11/2018, Other Cardiovascular Problems/Disorders - heart murmer since 16 years old Denies: Hx Congestive Heart Failure, Hx Pacemaker/ICD Respiratory History: Reports: Hx Chronic Obstructive Pulmonary Disease (COPD), Hx Seasonal Allergies Denies: Hx Asthma, Other Respiratory Problems/Disorders GI History: Reports: Hx Gastroesophageal Reflux Disease, Hx Hiatal Hernia, Other GI Disorders - hiatal hernia Denies: Hx Ulcer History: Reports: Hx Renal Disease - hx of cyst removal, Other Problems/ Disorders - cysts removed from kidney Denies: Hx Dialysis Musculoskeletal History: Reports: Hx Arthritis - BILATERAL KNEES, BACK, BILATERAL HANDS, Hx Back Problems, Hx Osteoporosis Denies: Hx Rheumatoid Arthritis Sensory History: Denies: Hx Contacts or Glasses, Hx Hearing Aid Opthamlomology History: Denies: Hx Contacts or Glasses Neurological History: Reports: Hx Dementia, Hx Headaches, Hx Migraine, Hx Seizures, Other Neuro Impairments/Disorders - COMPRESSION FX T9,T10,T11 AND L1 Psychiatric History: Reports: Hx Anxiety, Hx Depression Denies: Hx Panic Disorder, Hx Substance Abuse - Cancer History Cancer Type, Location and Year: MELANOMA Hx Chemotherapy: No Hx Radiation Therapy: No Hx Palliative Cancer Treatment: No - Surgical History Surgical History: Yes Surgery Procedure, Year, and Place: CATARACTS; PARTIAL THYROIDECTOMY; PAVAN; HYSTERECTOMY; T&A; APPENDECTOMY; CYST REMOVED FROM KIDNEY; BACK SURGERY; MELANOMA REMOVED FROM LEFT ARM; NASAL SURGERY; three cardiac stents placed after PA Hx Anesthesia Reactions: No - Immunization History Date of Tetanus Vaccine: Unk Date of Influenza Vaccine: 01/09/13 Infectious Disease History: No Infectious Disease History: Reports: Hx Shingles Denies: Hx Hepatitis, Hx Human Immunodeficiency Virus (HIV), History Other Infectious Disease, Traveled Outside the [place] in Last 30 Days - Family History Known Family History: Positive: Cardiac Disease - CHF, Other - CANCER - Social History Alcohol Use: None Hx Substance Use: No Substance Use Type: Reports: None Hx Tobacco Use: Yes Smoking Status (MU): Former Smoker - recently quit, heavy smoker in past Type: Cigarettes Amount Used/How Often: 1/2 PPD Length of Time of Smoking/Using Tobacco: 60 years Have You Smoked in the Last Year: Yes Review of Systems Positive: Chest Pain Positive: Shortness Of Breath. Negative: Cough Positive: Nausea. Negative: Vomiting Neurological: Other - Negative: dizziness. All Other Systems Reviewed And Are Negative: Yes Physical Exam - Summary Physical Exam Summary: VITAL SIGNS: Reviewed. GENERAL: Patient is a well-developed and nourished elderly female who is lying comfortable in the stretcher. Patient is not in any acute respiratory distress. HEAD AND FACE: No signs of trauma. No ecchymosis, hematomas or skull depressions. No sinus tenderness. EYES: PERRLA, EOMI x 2, No injected conjunctiva, no nystagmus. EARS: Hearing grossly intact. Ear canals and tympanic membranes are within normal limits. MOUTH: Oropharynx within normal limits. NECK: Supple, trachea is midline, no adenopathy, no JVD, no carotid bruit, no c- spine tenderness, neck with full ROM. CHEST: Symmetric, no tenderness at palpation. LUNGS: Clear to auscultation bilaterally. No wheezing or crackles. CVS: Regular rate and rhythm, S1 and S2 present, no murmurs or gallops appreciated. ABDOMEN: Soft, non-tender. No signs of distention. No rebound, no guarding, and no masses palpated. Bowel sounds are normal. EXTREMITIES: FROM in all major joints, no edema, no cyanosis or clubbing. NEURO: Alert and oriented x 3. No acute neurological deficits. Speech is normal and follows commands. SKIN: Dry and warm. Triage Information Reviewed: Yes Vital Signs On Initial Exam: Initial Vitals Temp Pulse Resp BP Pulse Ox 97.4 F 56 18 108/56 95 01/06/19 14:10 01/06/19 14:10 01/06/19 14:10 01/06/19 14:10 01/06/19 14:10 Vital Signs Reviewed: Yes Procedures - Sedation Patient Received Moderate/Deep Sedation with Procedure: No Diagnostics - Vital Signs Vital Signs Temp Pulse Resp BP Pulse Ox 01/06/19 14:10 97.4 F 56 18 108/56 95 - Laboratory Result Diagrams: 01/06/19 15:12 01/06/19 15:12 Lab Statement: Any lab studies that have been ordered have been reviewed, and results considered in the medical decision making process. - Radiology Chest X-Ray Radiology Interpretation Completed By: Radiologist Summary of Radiographic Findings: Impression: No acute cardiopulmonary process by radiograph. ED physician has reviewed this report. - EKG 1613 Cardiac Rate: NL - 64 bpm EKG Rhythm: Sinus Rhythm Summary of EKG Findings: EKG at 1613 reveals NSR at [address] elevations. Q wave in III. T wave inversion in aVL. ED physician has reviewed and interpreted this EKG. Re-Evaluation - Re-Evaluation First Eval Re-Evaluation Time: 17:00 Change: Unchanged Comment: We discussed plan for admission. Chest Pain Course/Dx - Course Assessment/Plan: Patient is a 78 y/o F who recently had PA two weeks ago with 3 stents placed has chief complaint of sudden onset chest pain accompanied by shortness of breath and nausea onset three hours ago. Denies any vomiting, dizziness, or cough. She is no longer a candidate for open heart surgery secondary to history of COPD. Blood work without any significant abnormality except for WBCs of 13.3, sodium of 132, potassium of 3.4, chloride of 98, anion gap of 12, creatinine of 1.52, glucose of 150, magnesium of 1.6, alkaline phosphatase of 136, troponin of 0.10, and BNP of 157. EKG shows no ST elevations. Chest x-ray impression: No acute cardiopulmonary disease. Patient already took an aspirin at home. The patient reports that she was last week at [place] [facility] and she was told that she is not a candidate for a CABG. Therefore, at this point, the patient will be seeking medical treatment. I discussed my physical exam and findings with Dr. Cooper who accepted the patient for admission. The patient is hemodynamically stable alert and oriented 3. - Diagnoses Provider Diagnoses: Chest pain - Provider Notifications Discussed Care Of Patient With: Romy Cooper - hospitalist Time Discussed With Above Provider: 16:45 Instructed by Provider To: Admit As Observation - I discussed the patients case with Dr. Cooper who accepts the patient for admission. Discharge ED - Sign-Out/Discharge Documenting (check all that apply): Patient Departure - Patient accepted for admission by Dr. Cooper. - Discharge Plan Condition: Stable Disposition: ADMITTED TO [facility] Referrals: Martha Bennett MD [Primary Care Provider] - - Billing Disposition and Condition Condition: STABLE Disposition: Admitted to [facility] - Attestation Statements Document Initiated by Scribe: Yes Documenting Scribe: Marquita Brothers Provider For Whom Scribe is Documenting (Include Credential): Dr. Sergei Silverman MD Scribe Attestation: Marquita Bernal scribed for Dr. Sergei Silverman MD on 01/06/19 at 1859. Scribe Documentation Reviewed: Yes Provider Attestation: The documentation as recorded by the scribe, Marquita Brothers accurately reflects the service I personally performed and the decisions made by me, Dr. Sergei Silverman MD Status of Scribe Document: Ready
[2019-01-06 15:24] LABS: ABS Basophils 0.1 10^3/ul (0-0.2); ABS Eosinophils 0.1 10^3/ul (0-0.6); ABS Lymphocytes 0.7 10^3/ul (1.0-4.8); ABS Monocytes 0.6 10^3/ul (0-0.8); ABS Neutrophils 11.8 10^3/ul (1.5-7.7); Eosinophil % 1.1 %; Hematocrit 42 % (35-47); Hemoglobin 14.1 g/dL (12.0-16.0); Lymphocyte % 5.2 %; Mean Corpuscular HGB Conc 34 g/dL (31-36); Mean Corpuscular Hemoglobin 31 pg (27-31); Mean Corpuscular Volume 92 fL (80-97); Platelet Count 399 10^3/uL (150-450); Red Blood Count 4.51 10^6 /uL (3.70-4.87); Red Cell Distribution Width 14 % (10-15); White Blood Count 13.3 10^3/uL (3.5-10.8)
[2019-01-06 15:35] LABS: Activated Partial Thrombo Time 34.5 seconds (26.0-38.0); INR 1.01 (0.82-1.09)
[2019-01-06 15:42] LABS: ALT 15 U/L (7-52); AST 22 U/L (13-39); Albumin 4.3 g/dL (3.2-5.2); Albumin/Globulin Ratio 1.2 (1-3); Alkaline Phosphatase 136 U/L (34-104); Anion Gap 12 mmol/L (2-11); BUN/Creatinine Ratio 15.8 (8-20); Blood Urea Nitrogen 24 mg/dL (6-24); CO2 Carbon Dioxide 22 mmol/L (22-32); Calcium 9.7 mg/dL (8.6-10.3); Chloride 98 mmol/L (101-111); Creatine Kinase 24 U/L (10-223); EGFR African American 40.1 (>60); EGFR Non-African American 33.2 (>60); Globulin 3.6 g/dL (2-4); Glucose 150 mg/dL (70-100); Magnesium 1.6 mg/dL (1.9-2.7); Potassium 3.4 mmol/L (3.5-5.0); Sodium 132 mmol/L (135-145); Total Protein 7.9 g/dL (6.4-8.9)
[2019-01-06 15:49] LABS: CKMB ng/mL 1.2 ng/mL (0.6-6.3)
[2019-01-06] MEDS ORDERED: Potassium Chlor TAB* 20 MEQ TAB.ER PO ONE (16:29)
[2019-01-06] MEDS ORDERED: Magnesium Oxide TAB* 400 MG PO ONE (16:30)
[2019-01-06] MEDS ORDERED: Acetaminophen TAB* 325 MG PO PRN (18:19)
[2019-01-06] MEDS ORDERED: Al Hydrox/Mg Hydrox/Simet LIQ* 30 ML UDC PO PRN (18:19)
[2019-01-06] MEDS ORDERED: Ondansetron INJ* 2 MG/ML VIAL IV PRN (18:19)
[2019-01-06] MEDS ORDERED: Melatonin 3 MG TAB PO PRN (18:32)
[2019-01-06] MEDS ORDERED: Albuterol 2.5 MG/3 ML NEB.SOL* (0.083%) INH PRN (18:36)
[2019-01-06] MEDS ORDERED: oxyCODONE TAB* 5 MG TAB PO PRN (18:43)
[2019-01-06 18:53] LABS: Troponin I 0.09 ng/mL (<0.04)
[2019-01-06] MEDS ORDERED: Enoxaparin(*) 30 MG/0.3 ML SYR SUBCUT SCH (20:00)
[2019-01-06] MEDS: Ticagrelor* 90 MG TAB PO SCH (20:08)
[2019-01-06] MEDS: Pantoprazole TAB * 40 MG TAB PO SCH (20:09)
[2019-01-06 20:52] LABS: Troponin I 0.08 ng/mL (<0.04)
[2019-01-06] MEDS: Gabapentin CAP(*) 100 MG PO SCH (21:33)
[2019-01-06] MEDS: Metoprolol Tartrate TAB* 25 MG PO SCH (21:34)
[2019-01-06] MEDS: Isosorbide Mononitrate ER TAB* 30 MG PO SCH (21:34)
[2019-01-06] MEDS: oxyCODONE SR TAB(*) 10 MG TAB.SR PO SCH (21:34)
--- NOTE | 2019-01-06 21:57 | HP ---
CC: Dr. Martha Bennett * HISTORY AND PHYSICAL: DATE OF ADMISSION: 01/06/19 ATTENDING PHYSICIAN WHILE IN THE HOSPITAL: Dr. Chela Griffith * (dictated by DALIA Munoz). PRIMARY CARE PROVIDER: Dr. Martha Bennett. CHIEF COMPLAINT: Chest pain. HISTORY OF PRESENT ILLNESS: Shu Nagy is a 78-year-old white female with a past medical history significant for recent NSTEMI with findings of 3-vessel coronary artery disease on 12/22/18, status post 3 stents; hypertension; diabetes; severe mitral stenosis, who presents to emergency department today for chest pain, which was radiating to her back. The patient reports that she was resting at home when she suddenly had central chest pain around 1 in the afternoon, which felt like something was sitting on her chest. This was radiating to her central back as well. The patient felt difficulty breathing during this episode. By the time she arrived to the emergency department and by the time of my evaluation, all these symptoms feel improved without medications. She did feel dizzy and this has improved as well. The patient tells me that she has brief episodes of shortness of breath at times, which are self-resolved and unrelated to chest pain. She also reports chronic headaches. She denies abdominal pain, neck or jaw pain, arm pain, or visual changes. She tells me that she did feel nauseous from this onset, but is feeling better now. She denies vomiting, abdominal pain, fever, chills, or urinary symptoms. The patient, of note, was recently admitted for an NSTEMI and found to have 3- vessel disease on her cardiac catheterization, which was performed on 12/24/18. On 12/22/18, her troponin was 5.25. She had ST depressions. Her cardiac catheterization, on 12/24/18, demonstrated coronary artery disease in the proximal LAD, mid circumflex, and distal right coronary artery. The patient was accepted for transfer to [facility] on 12/24/18 for potential CABG and additionally for valve repair for her severe mitral stenosis, which was also found during this hospitalization. However, the patient and her daughter told me that she was told she was not a good candidate for CABG. Instead, she was given 3 stents at [facility]. The patient and her daughter told me that she was not prescribed nitroglycerin upon discharge from [facility]. The patient then presented to the emergency department, on 12/30/18, with complaints of chest pain. The patient was transferred to [facility] directly from the [facility] [place]. It is unclear at this time due to lack of medical records from [facility] whether the stents were placed during this hospitalization or the previous. The patient tells me that she has a followup appointment on 01/21/19 with a wood turning lathe operator. She is unable to tell me the name of the wood turning lathe operator and is unsure if the affiliation is with [facility] or otherwise. ED COURSE: In the emergency department, the patient was given 800 mg p.o. magnesium oxide and 40 mEq of potassium chloride. The patient's vital signs were temperature 97.4, pulse 56, respiratory rate 18, oxygen saturation 95% on room air, blood pressure 108/56. Given the patient's history and her elevated troponin of 0.1, the hospitalists were asked to evaluate the patient for admission. PAST MEDICAL HISTORY: 1. Coronary artery disease, status post 3 stents. 2. Severe mitral stenosis. 3. Hypothyroidism, status post partial thyroidectomy. 4. Diabetes mellitus, type 2. 5. COPD. 6. Melanoma, status post excision. 7. Hypertension. 8. Hyperlipidemia. 9. Dementia. 10. GERD. 11. History of seizures, none for over 1 year and no longer on antiseizure medication. 12. Anxiety. PAST SURGICAL HISTORY: 1. Cholecystectomy. 2. Lumbar spine surgery. 3. Partial thyroidectomy. 4. Hysterectomy. 5. Appendectomy. 6. Three stents. 7. Melanoma excision. HOME MEDICATIONS: 1. Celebrex 100 mg p.o. b.i.d. p.r.n. pain. 2. Venlafaxine 150 mg p.o. daily. 3. Brilinta 90 mg b.i.d. 4. Quinapril 10 mg p.o. daily. 5. Oxycodone IR 15 mg p.o. q.4 hours p.r.n. moderate pain. 6. Metoprolol tartrate 12.5 mg p.o. b.i.d. 7. Synthroid 50 mcg p.o. daily. 8. Ipratropium nasal spray 2 sprays both nares daily. 9. Hydrocodone bitartrate 15 mg p.o. b.i.d. 10. Hydrochlorothiazide 25 mg p.o. daily. 11. Gabapentin 100 mg p.o. t.i.d. 12. Esomeprazole 40 mg p.o. b.i.d. 13. Lipitor 40 mg p.o. daily. 14. Aspirin 81 mg p.o. daily. 15. Ventolin nebulized solution 2.5 mg inhaled q.6 hours p.r.n. shortness of breath. ALLERGIES: The patient with allergy of hallucinations to OXYCODONE; however, she does continue to take this. Reaction of hives to SULFA. FAMILY HISTORY: Father in his 50s due to TB. Mother , due to cancer unknown to the patient, at age 63. SOCIAL HISTORY: The patient lives with her daughter, Chris, who is her healthcare proxy. Her phone number is [phone]. She has 5 children. The patient has quit smoking 2 weeks ago. She had previously been smoking since she was 14 and at least a pack per day. She denies illicit drug use and alcohol use. REVIEW OF SYSTEMS: An 11-point review of systems was completed, all pertinent positives and negatives are as above in the HPI, all other systems are negative. PHYSICAL EXAMINATION GENERAL: A thin, elderly white female, lying upright on the hospital bed, appearing comfortable and in no acute distress. HEENT: Eyes: PERRL. Sclerae anicteric. ENT: Mucous membranes moist. NECK: Supple without JVD. LUNGS: Clear to auscultation throughout. CARDIAC: Regular rate and rhythm. Faint appreciable systolic murmur. ABDOMEN: Normoactive bowel sounds x4 quadrants. Abdomen is soft, nontender, and nondistended without hepatosplenomegaly. EXTREMITIES: No clubbing, cyanosis, or edema. NEUROLOGIC: The patient is alert and oriented x3. No focal deficits. No tremors. DIAGNOSTIC STUDIES/LAB DATA: White blood cell count 13.3, hemoglobin 14.1, hematocrit 42, platelet count 399. Sodium 132, potassium 3.4, chloride 98, carbon dioxide 22, anion gap 12, BUN 24 , creatinine 1.52, glucose 50, magnesium 1.6. Troponin 0.10. Chest x-ray: No acute cardiopulmonary findings. Mediastinum is not widened. EK beats per minute, regular, normal sinus rhythm. No ST depressions. T - wave flattening in V1 and V2, which is main change from some T-wave inversions , which were on previous EKG on 12/30/18. ASSESSMENT AND PLAN: Shu Nagy is a 78-year-old white female with recently status post 3 stents for 3-vessel coronary artery disease and severe mitral stenosis as well as diabetes and chronic obstructive pulmonary disease, who presents for chest pain radiating to the back. The patient will be admitted to [facility] for: 1. Chest pain. The patient was reportedly not discharged with nitrates and this may be related to her blood pressure. I have discussed this case with Dr. Aden given the complexity of her mitral stenosis, plus 3-vessel coronary artery disease. Dr. Aden recommends Imdur 30 mg, which would be better for her blood pressure than Ranexa. We will continue to monitor her troponins. Dr. Aden recommends starting a heparin drip if her next troponin is elevated. It is currently 0.10, which possibly represents a natural downtrend since her previous elevation in the setting of her recent non-ST elevation myocardial infarction. The patient's chest pain feels improved already at this point without any intervention in the emergency department, other than magnesium and potassium. It is quite possible this has a component of anxiety, which she is known to have. The Cardiology service will be seeing the patient tomorrow. I will repeat her EKG with the next serial troponins. I will continue the patient 's home Brilinta, aspirin, metoprolol, and Lipitor. I will continue lisinopril in lieu of her home quinapril. 2. White blood cell count. The patient has a mild leukocytosis. I do see that this is minimally elevated at her last hospitalization on 12/22/18. This was possibly related to stress as the patient is noted to be anxious. She does not have any evidence of pneumonia on her chest x-ray and no clinical signs. She denies urinary symptoms and a urinalysis has already been ordered to rule this out. 3. Hypertension. The patient has a history of hypertension. She takes hydrochlorothiazide and quinapril at home. I will hold her hydrochlorothiazide given that she does have some minimally low blood pressures in the ED, then I will be starting Imdur and would like to avoid further hypotension considering the patient's severe mitral stenosis. 4. Diabetes. It does appear that the patient has diet-controlled diabetes. Her hemoglobin A1c was 5.6 on 12/23/18, which indicates good control. I will now order fingersticks during this hospital stay. Her glucose is 100 though the fingersticks could be ordered for her glucose as they are continually elevated on BMPs. 5. Chronic obstructive pulmonary disease. I will continue the patient's home p.r.n. Ventolin. She does not appear to be in acute exacerbation. 6. Hypothyroidism. Continue the patient's home Synthroid. 7. Gastroesophageal reflux disease. Continue home PPI. 8. Chronic pain. I will continue the patient's gabapentin as well as long- acting oxycodone. I will hold the p.r.n. Celebrex considering the patient is on dual antiplatelet therapy; this is contraindicated. 9. FEN. The patient had mild hypokalemia and this has been repleted. We will continue to follow this. Additionally, the patient had a mild hypomagnesia, which additionally has been repeated and we will follow this. The patient will have a heart healthy diet without caffeine. No fluids are indicated at this time. 10. Code status: The patient is DNR/DNI and I have updated her MOLST. 11. DVT prophylaxis: Lovenox 30 mg subcu daily as the patient has a DVT risk score of 3. 12. Early discharge planning. I did discuss the possibility of [facility] following the patient in outpatient setting considering that she had already been determined to be a poor candidate for coronary artery bypass graft despite her extensive 3-vessel disease and she has continued to have chest pain. The patient and her daughter seem interested in [facility] and it would be of benefit if Case Management could please facilitate this during her hospital stay. TIME SPENT: Approximately 55 minutes was spent on this admission, approximately half of this time was spent at the bedside evaluating the patient and discussing the plan of care. This case has been reviewed with my attending, Dr. Chela Griffith, and she agrees to this plan of care. DALIA MUNOZ [id number]/[facility] #: [id number] [facility]ENTERJuancho
[2019-01-06 22:36] LABS: ABS Basophils 0.1 10^3/ul (0-0.2); ABS Eosinophils 0.1 10^3/ul (0-0.6); ABS Lymphocytes 0.9 10^3/ul (1.0-4.8); ABS Monocytes 0.7 10^3/ul (0-0.8); ABS Neutrophils 8.5 10^3/ul (1.5-7.7); Eosinophil % 1.4 %; Hematocrit 37 % (35-47); Hemoglobin 12.5 g/dL (12.0-16.0); Lymphocyte % 8.3 %; Mean Corpuscular HGB Conc 34 g/dL (31-36); Mean Corpuscular Hemoglobin 31 pg (27-31); Mean Corpuscular Volume 92 fL (80-97); Mean Platelet Volume 7.8 fL (7.4-10.4); Platelet Count 354 10^3/uL (150-450); Red Blood Count 4.05 10^6 /uL (3.70-4.87); Red Cell Distribution Width 15 % (10-15); White Blood Count 10.2 10^3/uL (3.5-10.8)
[2019-01-06 22:52] LABS: BUN/Creatinine Ratio 18.7 (8-20); Calcium 9.2 mg/dL (8.6-10.3); EGFR African American 40.7 (>60); EGFR Non-African American 33.7 (>60); Potassium 3.6 mmol/L (3.5-5.0)
[2019-01-07] MEDS ORDERED: Levothyroxine TAB* 50 MCG TAB PO SCH (06:00)
[2019-01-07 06:54] LABS: ABS Eosinophils 0.2 10^3/ul (0-0.6); ABS Lymphocytes 1.2 10^3/ul (1.0-4.8); ABS Monocytes 0.8 10^3/ul (0-0.8); ABS Neutrophils 6.7 10^3/ul (1.5-7.7); Eosinophil % 2.8 %; Hematocrit 36 % (35-47); Hemoglobin 12.4 g/dL (12.0-16.0); Lymphocyte % 12.9 %; Mean Corpuscular HGB Conc 34 g/dL (31-36); Mean Corpuscular Hemoglobin 31 pg (27-31); Mean Corpuscular Volume 92 fL (80-97); Platelet Count 358 10^3/uL (150-450); Red Blood Count 3.94 10^6 /uL (3.70-4.87); Red Cell Distribution Width 14 % (10-15); White Blood Count 8.9 10^3/uL (3.5-10.8)
[2019-01-07 07:11] LABS: BUN/Creatinine Ratio 22.7 (8-20); Calcium 9.2 mg/dL (8.6-10.3); EGFR African American 48.9 (>60); EGFR Non-African American 40.4 (>60); Potassium 3.9 mmol/L (3.5-5.0)
[2019-01-07] MEDS: Metoprolol Tartrate TAB* 25 MG PO SCH (08:45)
[2019-01-07] MEDS: Pantoprazole TAB * 40 MG TAB PO SCH (08:46)
[2019-01-07] MEDS: Isosorbide Mononitrate ER TAB* 30 MG PO SCH (08:46)
[2019-01-07] MEDS: Ticagrelor* 90 MG TAB PO SCH (08:46)
[2019-01-07] MEDS: Gabapentin CAP(*) 100 MG PO SCH ×2 (08:47→13:33)
[2019-01-07] MEDS: oxyCODONE SR TAB(*) 10 MG TAB.SR PO SCH (08:47)
[2019-01-07] MEDS ORDERED: Aspirin EC TAB* 81 MG TAB.EC PO SCH (09:00)
[2019-01-07] MEDS ORDERED: NFT: IPRATROPIUM BR (NF)0.03% NASAL 1 SPRAY BTL BOTH NARES SCH (09:00)
[2019-01-07] MEDS ORDERED: Lisinopril TAB* 10 MG PO SCH (09:00)
[2019-01-07] MEDS ORDERED: Venlafaxine EXT RELEASE CAP* 75 MG PO SCH (09:00)
[2019-01-07] MEDS ORDERED: Atorvastatin* 40 MG TAB PO SCH (09:00)
[2019-01-07 10:24] LABS: Magnesium 1.6 mg/dL (1.9-2.7)
[2019-01-07] MEDS ORDERED: Magnesium Sulfate IV* 3 GM in NS 0.9% 100 ML* 100 ML IVPB ONE ×4 (10:25)
--- NOTE | 2019-01-07 13:59 | CONS ---
CONSULTATION REPORT: DATE OF CONSULT: 01/07/19 ATTENDING PHYSICIAN: Dr. Joseph.* (DICTATED BY FLORIN NESS NP) REASON FOR CONSULT: Chest pain, recent PCI due to triple-vessel disease and NSTEMI. HISTORY OF PRESENT ILLNESS: This is a 78-year-old female patient who follows Dr. Haylee Santiago of our practice due to a notable history of coronary artery disease with recent NSTEMI on 12/23/18, troponin peaked at 5.25 at that time. The patient underwent left heart catheterization, which revealed triple-vessel disease. In addition, she was found to have moderate to severe mitral stenosis , thus she was transferred to [facility] for consideration of bypass with mitral valve replacement. According to the patient, she did not undergo bypass with mitral valve replacement, but she did undergo "3 cardiac stents." According to the patient and her daughter, Chris, whom I personally spoke with, she was discharged from [facility] and then on 12/30/18, she actually re- presented to [facility] due to complaints of chest pain. She had troponin elevation. After review of serial troponin values, it appears that after her NSTEMI on 12/22/18, troponin was trending down. On 12/30/18, when she presented, it was 2.63; however, second cardiac enzyme later that evening on 12/30/18 was 2.74, thus the option was made for her to be transferred back to [facility]. The patient states that she did not undergo any cardiac procedures or testing on 12/30/18 when she was reevaluated at [facility] and she was sent home. She adds that since going home she has been doing well; however, yesterday while sitting in a chair, she had substernal chest pressure radiating into her back, thus she re-presented to [facility] for further evaluation. Her cardiac enzymes have been cycled since she presented and have continued to trend down consistent with recent infarct. She is currently chest pain-free and has not had any reoccurrence since yesterday while being evaluated in the emergency department. She reports compliance with medications including aspirin and Brilinta therapy. Of note, she was noted to be hyponatremic and in acute renal insufficiency when she presented. Renal function did improve. Diuretic therapy has been held. The patient is currently stable and asymptomatic at this time. Last echocardiogram according to our medical records was 12/22/18. Per report, LVEF 55% to 60%, normal wall motion, eizuwbul-mv-zslwmk mitral stenosis, mild-to - moderate aortic insufficiency, trace tricuspid insufficiency. Left heart catheterization on 12/24/18 revealed triple-vessel disease. For other information, please review procedure report. PAST MEDICAL HISTORY: 1. Coronary artery disease. 2. Moderate to severe mitral stenosis. 3. A 3.4 cm AAA. 4. Rheumatic fever. 5. Hyperlipidemia. 6. Depression. 7. GERD. 8. Prior myocardial infarction. 9. Moderate aortic insufficiency. 10. Pulmonary hypertension. 11. Dementia. 12. Diabetes. 13. COPD. PAST SURGICAL HISTORY: Includes: 1. Hysterectomy. 2. Cholecystectomy. 3. Right renal cyst removal. 4. Lumbar laminectomy. 5. Coronary PCI at [facility], surgical report pending. HOME MEDICATIONS: Per admission med rec. ALLERGIES: Listed as include SULFA, CODEINE, and PERCOCET. FAMILY HISTORY: Mother due to complications of lung cancer. Father had a history of cardiovascular disease. SOCIAL HISTORY: The patient is a former tobacco user. Denies alcohol use. Lives at home with her daughter, Chris, whom I personally spoke with. She is currently a DNR/DNI. She does ambulate with a cane; however, she denies falls. REVIEW OF SYSTEMS: All systems have been reviewed and otherwise negative except as above mentioned in the HPI. PHYSICAL EXAM: Temperature is 98.4, pulse 58, respirations 18, oxygenation 98% on room air, blood pressure 110/60. General: The patient is alert and oriented x3, cooperative with exam, does appear to be weepy and apathetic, offers no complaints at this time, is in no apparent distress. HEENT: Head is atraumatic, normocephalic. Oral mucosa is moist. Tongue is midline. Neck: Supple. Trachea midline. No JVD. No carotid bruits. Cardiac: Normal S1, S2. Regular rate and rhythm. Positive 2/5 diastolic aortic murmur auscultated at the right sternal border. Positive 3/5 mitral murmur auscultated underneath the left axilla. No gallop or rub. Lungs: Auscultated posteriorly. No evidence of adventitious breath sounds. Respirations are nonlabored. /GI: Abdomen is soft, nontender, nondistended. Normoactive bowel sounds. Extremities: No pedal edema, no clubbing, no cyanosis. Right radial access site is intact. No hematoma. 2+ radial pulses palpated bilaterally and symmetrically. Cap refill less than 3 seconds. Skin: Intact. Ecchymosis noted involving bilateral upper extremities. No cyanosis. No pallor. No jaundice. DIAGNOSTIC STUDIES/LAB DATA: Blood work obtained on 01/07/19: Sodium 129, potassium 3.9, chloride 99, carbon dioxide 21, BUN 29, creatinine 1.28, glucose 108, magnesium 1.7. Troponin peaked at presentation at 0.10 consistent with recent infarct. Troponin continues to trend down. INR 1.01. White count 8.9, hemoglobin 12.4, hematocrit 36, platelets 358. ECG obtained on 01/06/19: Sinus bradycardia, rate 53, nonspecific diffuse minimal ST segment depression noted in inferolateral leads. No ST segment elevation appreciated. Chest x-ray on 01/06/19 per radiology report: No active cardiopulmonary disease. ASSESSMENT AND PLAN: 1. Complaints of chest pain consistent with anginal equivalent. Troponin continues to trend down consistent with recent infarct. She was transferred due to a giz-YL-hkwrjdbzu myocardial infarction with triple-vessel disease and moderate-to- severe mitral stenosis on 12/24/18 to [facility]. She apparently underwent drug- eluting stent placement to mid LAD, first diag and distal right coronary artery on 12/26/18. She re-presented with chest pain on 12/30/18 with troponin elevation, although minimal. She was transferred back to [facility]. She was previously deemed not a surgical candidate by Cardiothoracic Surgery at [facility]. On 12/30/18, she was admitted for non- ST-elevation myocardial infarction. She underwent a relook left heart catheterization according to [employer] medical records, which revealed patent stents. She has severe disease in the second diagonal, which was thought not to be amenable to intervention. Rosuvastatin was increased from 5 mg to 40 mg and it was recommended to continue DAP therapy uninterrupted for 1 year's time. Given known residual second diag disease not amenable to percutaneous coronary intervention, agree with initiation of Imdur therapy. ECG does not reveal ST segment elevation or ischemic changes at this time. Troponin elevation is again consistent with recent recurrent fxw-RU-ietgxufrx myocardial infarction on 12/30/18. We will continue aspirin 81 mg a day, Brilinta 90 mg p.o. b.i.d., rosuvastatin, and metoprolol therapy. 2. Nmdreqwh-kj-jbspsa mitral stenosis. To follow up with Cardiology outpatient. The patient was deemed not a surgical candidate by Cardiothoracic Surgery at [facility]. She appears compensated at this time. 3. History of dyslipidemia, on statin therapy. Recommend LDL less than 70. 4. History of dementia. Defer to primary team. 5. Disposition: Pending course. The patient is DNR/DNI with known residual second diag disease per [facility] medical records, not amenable to PCI, continue medical therapy, follow up with Cardiology outpatient. We will sign off at this time. Case was discussed with Dr. Joseph, who agrees with the above assessment and plan. FLORNI NESS NP [id number]/[facility] #: [id number] [place]
--- NOTE | 2019-01-07 15:33 | ECHO ---
*[facility]* [place] [address] Fax #: [phone] Transthoracic Echocardiogram Patient: Shu Nagy : 1940 Study Date: 01/07/2019 Age: 78 Gender: F HR: 78 bpm Height: 64 in /162.6 cm BSA: 1.64 m^2 Weight: 132.7 lb /60.3 kg BMI: 22.8 kg/m^2 *Rv Technician: Jelly Payton [facility] *Referring Physician: * O'Michelle Ruiz *Reading Physician: Jeovany Mandel MD Indications: Mitral Valve Disorders. History: Coronary artery disease. Mitral stenosis. Aortic stenosis. Chronic obstructive pulmonary disease. Risk factors: Hypertension. Diabetes mellitus. Labs, prior tests, procedures, and surgery: Catheterization (12/22/2018). There was a stenosis which was treated with a stent. Conclusions Summary: - Left ventricle: The cavity size is mildly reduced. Wall thickness is mildly to moderately increased. Systolic function is normal. The estimated ejection fraction is 55-60%. - Mitral valve: The findings are consistent with moderate stenosis. There is trace regurgitation. The valve area is 1.3 cm^2. The valve area by pressure half-time is 1.5 cm^2. - Aortic valve: The findings are consistent with mild stenosis. There is mild regurgitation. The valve area by the velocity-time integral method is 2.00 cm^2. The valve area by the peak velocity method is 1.80 cm^2. - C/t 12/23/2018, no overt significant changes. Study data: Transthoracic echocardiogram. Procedure: Transthoracic echocardiography was performed. Image quality was adequate. The study was technically limited due to COPD. Complete 2D, spectral Doppler, and color flow Doppler. Location: Bedside. Patient status: Inpatient. Patient room number: 446 02. Rhythm: Normal sinus rhythm. Findings Left ventricle: The cavity size is mildly reduced. Wall thickness is mildly to moderately increased. Systolic function is normal. The estimated ejection fraction is 55-60%. Wall motion is normal; there are no regional wall motion abnormalities. Doppler parameters are consistent with abnormal left ventricular relaxation (grade 1 diastolic dysfunction). Right ventricle: The cavity size is normal. Systolic function is normal. Left atrium: The atrium is at the upper limits of normal in size. Right atrium: Not well visualized. Mitral valve: The Mitral valve annulus appears calcified. The leaflets are mildly calcified. Mobility is restricted. The findings are consistent with moderate stenosis. There is trace regurgitation. Aortic valve: The annulus is mildly calcified. The leaflets are mildly thickened. The findings are consistent with mild stenosis. There is mild regurgitation. Tricuspid valve: Not well visualized. There is no significant regurgitation. Pulmonic valve: Not well visualized. There is no significant regurgitation. Aorta: The aorta is poorly visualized. Pericardium: A prominent pericardial fat pad is present. There is no significant pericardial effusion. Pulmonary arteries: Not well visualized. Systolic pressure is within the normal range. Systemic veins: Inferior vena cava: The vessel is normal in size. There is (< 50%) respiratory change in the IVC dimension. Measurements Left ventricle Value Ref Aortic valve Value Ref JATIN, LAX (L) 3.0 cm 3.8 - 5.2 Glenn diam, ED 2.0 cm ----- ESD, LAX (L) 2.1 cm 2.2 - 3.5 Peak v, S 1.8 m/sec ----- FS, LAX 30 % 27 - 45 VTI, S 27.0 cm ----- PW, ED, LAX (H) 1.4 cm 0.6 - 0.9 Mean grad, S 8.0 mm Hg ----- EF 59 % 54 - 74 Peak grad, S 13.0 mm Hg ----- E', lat glenn, TDI (L) 5.9 cm/sec >=10.0 LVOT/AV, VTI ratio 0.6 --- -- E/e', lat glenn, 13 SAMMY, VTI 2.00 cm^2 ----- TDI SAMMY, Vmax 1.80 cm^2 ----- E', med glenn, TDI (L) 2.0 cm/sec >=7.0 E/e', med glenn, 38 Mitral valve Value Ref TDI Peak E 0.77 m/sec ----- E', avg, TDI 4.0 cm/sec Peak A 1.66 m/sec ----- E/e', avg, TDI (H) 19 <=14 Decel time 327 ms --- -- PHT 150 ms ----- LVOT Value Ref Mean grad, D 3.0 mm Hg ----- Diam, S 2.00 cm Peak grad, D 14.0 mm Hg ----- Area 3.1 cm^2 Peak E/A ratio 0.5 ----- Peak oswald, S 1.04 m/sec MVA, PHT 1.5 cm^2 ----- VTI, S 17.0 cm Peak grad, S 4 mm Hg Pulmonic valve Value Ref Mean grad, S 2 mm Hg Peak v, S 0.56 m/sec ----- Peak grad, S 1.0 mm Hg ----- Ventricular septum Value Ref IVS, ED (H) 1.2 cm 0.6 - 0.9 Tricuspid valve Value Ref TR peak v 2.01 m/sec <=2.8 Right ventricle Value Ref Peak RV-RA grad, S 16 mm Hg ----- Pressure, S 24 mm Hg Pulmonary artery Value Ref Left atrium Value Ref Pressure, S 23.0 mm Hg ----- AP dim, ES 3.70 cm 2.70 - 3.80 Inferior vena cava Value Ref ML dim, A4C 4.3 cm Diam 1.3 cm ----- SI dim, A4C 5.2 cm Vol/bsa, ES, A/L 34 ml/m^2 16 - 34 Right atrium Value Ref Estimated RAP 8 mm Hg Legend: (L) and (H) leslie values outside specified reference range. Prepared and electronically signed by Jeovany Joseph MD 01/07/2019 15:33
[2019-01-07 15:38] VITALS: BP 100/49
--- NOTE | 2019-01-07 19:59 | DS ---
CC: Dr. Martha Bennett * DISCHARGE SUMMARY: DATE OF ADMISSION: 01/06/19 DATE OF DISCHARGE: 01/07/19 PRIMARY CARE PROVIDER: Dr. Martha Bennett. ATTENDING PHYSICIAN: Dr. Shalonda Rosenberg.* (DICTATED BY MELISSA POLANCO NP) PRIMARY DIAGNOSES: 1. Cardiac chest pain. 2. Coronary artery disease. 3. Mitral stenosis. 4. Acute kidney injury. SECONDARY DIAGNOSES: 1. Diabetes mellitus type 2. 2. Hypothyroidism. 3. Chronic obstructive pulmonary disease. 4. Hypertension. 5. Hyperlipidemia. 6. Dementia. 7. Gastroesophageal reflux disease. 8. Anxiety. STUDIES WHILE IN THE HOSPITAL: 1. EKG on 01/06/19 shows normal sinus rhythm with a first-degree heart block and a rate of 64, QTc 452, flattened T-waves in V1 and V2. 2. Chest x-ray on 01/06/19 reads as no acute cardiopulmonary process by radiograph. 3. EKG on 01/06/19 shows normal sinus rhythm with a first-degree heart block and a rate of 65, QTc 434, flattened T-waves in V1 and V2. 4. EKG on 01/06/19 shows sinus bradycardia with a first-degree heart block and a rate of 53, QTc 406, flattened T-waves in V1 only. 5. Transthoracic echocardiogram on 01/07/19 reads as the left ventricular cavity size is mildly reduced. Wall thickness is mildly to moderately increased. Systolic function is normal. The estimated ejection fraction is 55% to 60%. Findings are consistent with moderate mitral stenosis. Findings are consistent with mild aortic stenosis. There is mild aortic regurgitation. Compared to study on 12/23/18, there are no significant changes. HISTORY OF PRESENT ILLNESS AND HOSPITAL COURSE: Ms. Nagy is a 78-year-old female with past medical history of coronary artery disease, mitral stenosis, diabetes, COPD, hypertension, dementia and anxiety, who presented to the emergency room on 01/06/19 with complaints of chest pain. Please see the history and physical by DALIA Munoz, for a complete summary of the events leading up to this hospitalization. In short, the patient was admitted to this facility for an NSTEMI and ultimately was found to have 3-vessel disease. She was transferred to [facility] on 12/24/18 for an anticipated CABG, though ultimately she had 3 stents placed instead. The patient then presented to the emergency room here again on 12/30/18 with complaints of chest pain and was transferred out to [facility] from the emergency room. Yesterday, the patient reported a sudden onset of central chest pain radiating to her back with associated shortness of breath and dizziness. By the time she got to the emergency room, her symptoms had essentially resolved. In the emergency room, she was noted to have a troponin of 0.10 and because of her cardiac history, she was admitted by the hospitalist service for observation. The patient had an uneventful night and has not experienced any further chest pain while in the hospital. She was seen in consultation this morning by Adele Rene NP from Cardiology, who did request records from [facility]. It was determined that the patient had a repeat cardiac catheterization on 12/30 at [facility], which revealed patent stents. She was noted to have severe disease in the second diagonal, though that was determined to not be amenable to intervention and at that point, they recommended medical management including increasing her statin and continuing dual antiplatelet therapy for 1 year. On admission here yesterday, the patient was started on Imdur, which Cardiology did recommend continuing. Ultimately, the patient's second 2 troponins here during this admission downtrended, so it is suspected that her troponin is still elevated from her NSTEMI and not necessarily from another acute event. Adele Rene NP, recommended continuing medical management as recommended by [facility] and appropriate outpatient followup and she felt as though the patient was stable from a cardiac standpoint at this time. Regarding her acute kidney injury, the patient is noted to have an increased creatinine at 1.52 yesterday and 1.28 today. It is suspected that this is still elevated secondary to these multiple catheterizations that she underwent as it does seem to be trending down at this time. The patient was noted to have some mild hypomagnesemia today, which was repleted. At this point, the patient feels well and is hopeful to be discharged today. On exam, she has no focal neurological deficits. She is alert and oriented. Heart has a regular rate and rhythm with a 2/6 systolic murmur. Lungs are clear to auscultation without rhonchi, wheezes, or rales. There is no edema. Physical exam is otherwise benign. Ms. Nagy is stable for discharge today. Vital signs are as follows: Temp 97.9 , heart rate 55, respiratory rate 18, oxygen saturation 97% on room air, blood pressure 100/49. DISCHARGE MEDICATIONS: New medication: 1. Isosorbide mononitrate 30 mg p.o. daily. Continued medications: 1. Albuterol 2.5 mg/3 mL, 1 neb q.6 hours p.r.n. shortness of breath. 2. Aspirin 81 mg p.o. daily. 3. Gabapentin 100 mg p.o. t.i.d. 4. Hydrocodone bitartrate 15 mg p.o. b.i.d. 5. Ipratropium 0.03% two sprays both nares daily. 6. Levothyroxine 50 mcg p.o. daily. 7. Metoprolol tartrate 12.5 mg p.o. b.i.d. 8. Oxycodone IR 15 mg p.o. q.4 hours p.r.n. pain. 9. Quinapril 10 mg p.o. daily. 10. Brilinta 90 mg p.o. b.i.d. 11. Baclofen 5 mg p.o. at bedtime p.r.n. pain. 12. Celebrex 100 mg p.o. b.i.d. p.r.n. pain. 13. Vitamin B12 5000 mcg sublingual daily. 14. Advair 115/21 one puff daily. 15. Hydrochlorothiazide 25 mg p.o. daily. 16. Omeprazole 20 mg p.o. daily. 17. Oxybutynin 10 mg p.o. daily. 18. Rosuvastatin 40 mg p.o. daily. 19. Trazodone 100 mg p.o. at bedtime p.r.n. insomnia. DISCHARGE PLAN: Ms. Nagy will be discharged home. Activity will be as tolerated. Diet will be heart-healthy. Medications are noted above. The patient has been started on isosorbide mononitrate per recommendations from Cardiology, though her other medications remain unchanged, again per recommendations from Cardiology. It is assumed at this time that the patient's chest pain that she experienced yesterday was very well likely cardiac related, though the patient does have a known critical lesion which is not able to be intervened upon, and so she will be medically managed as described above. She will need to follow up with her college archivist at [facility] as previously recommended by them. She should follow up with her PCP in the next 4 to 7 days. She has been advised to return to the emergency room or nearest hospital for any worsening of symptoms, shortness of breath, lightheadedness, dizziness, chest discomfort, high fevers, chills, night sweats, loss of consciousness, or any other worrisome signs or symptoms. DISCHARGE CONDITION: Stable. DISCHARGE DISPOSITION: Home. This is a summarized report of a complex medical history and hospital stay. For further details, please see the entire medical record. TIME SPENT: Approximately 60 minutes was spent on this discharge. MELISSA POLANCO NP [id number]/[facility] #: [id number] [place]
== END 2019-01-07 16:10 | disposition home or self-care (01) ==
LOC: ED 14:05 → MEDTELE 18:19
PROVIDERS: ADMIT Internal Medicine; ATTEND Internal Medicine
DX: R07.89 Other chest pain (principal); I25.10 Atherosclerotic heart disease of native coronary artery without angina pectoris; I05.0 Rheumatic mitral stenosis; N17.9 Acute kidney failure, unspecified; E11.9 Type 2 diabetes mellitus without complications; E03.9 Hypothyroidism, unspecified; J44.9 Chronic obstructive pulmonary disease, unspecified; I10 Essential (primary) hypertension; E78.5 Hyperlipidemia, unspecified; F03.90 Unspecified dementia, unspecified severity, without behavioral disturbance, psychotic disturbance, mood disturbance, and anxiety; K21.9 Gastro-esophageal reflux disease without esophagitis; F41.9 Anxiety disorder, unspecified; Z79.82 Long term (current) use of aspirin; Z79.899 Other long term (current) drug therapy
CPT/HCPCS: 36415; 71045; 80048; 80053; 82550; 82553; 83735; 83880; 84484; 85025; 85610; 85730; 93005; 93306; 96365; 96366; 96372; 99283; A9270-GY; G0378; J1650; J3475

== ENCOUNTER 2019-01-25 21:52 | Emergency (ER) | payer MEDICARE, MEDICAID ==
--- OUTSIDE RECORDS SUMMARY | 2019-01-25 22:12 | XMS REPORT | Summary of Care ---
:1940 Author Organization [facility] Address [address] [address] Care Team Providers Name Role Phone Sabrina Marquita RODRIGUEZ Primary Care Provider Lorri Marie Chronic Disease Nurse Educator Unavailable Reason for Visit Reason Comments New Patient Pt. referred by [facility]. Admitted to [facility] [place] [facility] [place]27[place]18 had Multiple stents placed. Readmitted to [facility] on 12/30-01/02/19 for NSTEMI. Dizziness Pt. having an increase in dizziness wtih movement Breathing Problem Pt. 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 (HCC) (Primary Dx); Cardiology MD Eric Rheumatic mitral stenosis; [address] Aortic valve stenosis, etiology of cardiac valve disease unspecified; [place] [address] [place] [address] Essential hypertension; [phone] Dyslipidemia Allergies Active Allergy Reactions Severity Noted Date Comments Oxycontin Unknown Reaction 01/27/2018 Sulfa Antibiotics Rash 06/16/2012 Skin burning and itching documented as of this encounter (statuses as of 01/21/2019) Medications Medication Sig Dispensed Refills Start Date End Date Status Esomeprazole Magnesium Take 40 mg by 0 Active (NEXIUM) 20 MG Oral Pack mouth TWICE DAILY. venlafaxine (EFFEXOR XR) Take 150 mg by 0 Active 150 MG Oral CAPSULE SR 24 mouth EVERY HR TWENTY-FOUR HOURS. HYDROcodone Bitartrate 15 Take 15 mg by 0 Active MG Oral Capsule Extended mouth TWICE Release 12 hour DAILY. Abuse-Deterrent albuterol (PROVENTIL, Take 2.5 mg by 0 Active VENTOLIN) (2.5 MG/3ML) inhalation. 0.083% Inhalation Nebu Soln ipratropium (ATROVENT) Manning 2 Sprays 0 Active 0.03 % Nasal [...] DAILY. Hypertension Indications: High Blood Pressure Disorder busPIRone HCl (BUSPAR PO) Take 7.5 mg by 0 Active mouth THREE TIMES DAILY NEEDED. Omeprazole delayed rel cap Take 20 mg by 0 Active 20 MG Oral CAPSULE DELAYED mouth DAILY. RELEASE duloxetine (CYMBALTA) 30 Take 30 mg by 0 Active MG Oral CAPSULE ENTERIC mouth EVERY COATED PARTICLES BEDTIME. phenazopyridine discharge Take 100 mg by 0 Active (PYRIDIUM) 100 MG Oral Tab mouth TWO TIMES DAILY NEEDED. Cyanocobalamin (B-12) 5000 Place 1 Tab 0 Active MCG Sublingual SL Tab under tongue DAILY. TRAZODONE HCL PO Take 100 mg by 0 Active mouth EVERY BEDTIME NEEDED. oxybutynin (DITROPAN) 5 MG Take 5 mg by 0 Active Oral Tab mouth TWICE DAILY. levothyroxine (SYNTHROID) Take 1 Tab by 30 Tab 0 01/02/2019 Active 75 MCG Oral Tab mouth BEFORE BREAKFAST. Rosuvastatin Calcium TAKE 1 TABLET 90 Tab 3 01/02/2019 Active (CRESTOR) 40 MG Oral Tab BY MOUTH DAILY documented as of this encounter (statuses as of 01/21/2019) Active Problems Problem Noted Date Mixed hyperlipidemia 12/25/2018 NSTEMI (non-ST elevated myocardial infarction) 12/25/2018 Hypertension 12/25/2018 Dementia 12/25/2018 Depression 12/25/2018 GERD (gastroesophageal reflux disease) 12/25/2018 COPD (chronic obstructive pulmonary disease) 12/25/2018 Coronary artery disease 12/25/2018 Spondylosis without myelopathy or radiculopathy, lumbar region 04/23/2018 Trochanteric bursitis of both hips 03/07/2018 Overview: Added automatically from request for surgery [id number] Spondylosis of lumbar region without myelopathy or radiculopathy 01/27/2018 Spondylosis of cervical region without myelopathy or radiculopathy 01/27/2018 Other and combined forms of senile cataract 01/09/2005 documented as of this encounter (statuses as of 01/21/2019) Social History Tobacco Use Types Packs/Day Years [...] Sign Reading Time Taken Comments Blood Pressure 130/58 01/21/2019 9:06 AM EDT Pulse 52 01/21/2019 9:06 AM EDT Temperature - - Respiratory Rate - - Oxygen Saturation - - Inhaled Oxygen Concentration - - Weight 60.3 kg (133 lb) 01/21/2019 9:06 AM EDT Height 162.6 cm (5' 4") 01/21/2019 9:06 AM EDT Body Mass Index 22.83 01/21/2019 9:06 AM EDT documented in this encounter Patient Instructions Patient InstructionsEric Garcia MD - 01/21/2019 9:20 AM EDT No medication changes today, but call us this afternoon with an accurate medication list of what you're taking. Work on trying to do a little more walking/exercise. Get your fasting bloodwork checked in about one month and follow up with me in 5-6 weeks. documented in this encounter Progress Notes Eric Garcia MD - 01/21/2019 9:20 AM EDT [facility] Note Patient: Shu Nagy Date of : 1940 Date of Service: 01/21/2019 REFERRING PRACTITIONER: Patti Funez PRIMARY CARE PROVIDER: Marquita Bennett Chief Complaint: Chief Complaint Patient presents with New Patient Pt. referred by [facility]. Admitted to [facility] [place] [facility] [place] had Multiple stents placed. Readmitted to [facility] on 12/30-01/02/19 for NSTEMI. Dizziness Pt. having an increase in dizziness wtih movement Breathing Problem Pt. reports an increase in Shortness of Breath History of Present Illness: We had the pleasure of seeing Shu Nagy today at the [facility] Office. She is a 78-y.o. female with HTN, hyperlipidemia, COPD, chronic back pain, mild dementia, DM, and rheumatic mitral stenosis/regurgitation as well as mild aortic stenosis. She also has multivessel CAD and had NSTEMI 11/2018. She was evaluated by CTS but d/t her high surgical risk she underwent PCI with HITESH to the distal RCA, D1, and mLAD on 12/25/2018. Ms. Nagy presents to cardiology clinic today to establish care. She has a complicated cardiac history as detailed above, and has been admitted to both [facility] [place] [facility] multiple times in the last two months. I personally reviewed all of her discharge summaries and cardiac testing results. Most recently, she re- presented to [facility] on 01/06 and was admitted overnight with . Echo and EKG were unchanged at that time, and troponins were flat/downtrending. She was started on low dose Imdur and sent home. From a symptom standpoint now, she reports that she's been feeling "tired and worn out." She gets occasional pressure in her chest, but that is random and not clearly related to exertion. She doesn'tdo much walking but she was able to walk in from the parking lot today with assistance. Her breathing feels OK but she sometimes feels like she has to take a deep breath in. Has chronic 2-3 pillow orthopnea over the past few months. No clear PND. No LE edema. Has been having a lot of lightheadedness but no syncope. No palpitations. Does note that she stopped taking one of her medications b/c of the lightheadedness and fatigue (she's not sure which one caused that symptom but thinks it might be metoprolol). 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 Trochanteric bursitis of both hips Spondylosis without myelopathy or radiculopathy, lumbar region Mixed hyperlipidemia NSTEMI (non-ST elevated myocardial infarction) ([facility]) Hypertension Dementia ([facility]) Depression GERD (gastroesophageal reflux disease) COPD (chronic obstructive pulmonary disease) ([facility]) Coronary artery disease Past Medical History: Diagnosis Date Allergic rhinitis Chronic pharyngitis Diabetes mellitus ([facility]) GERD (gastroesophageal reflux disease) Headache disorder NSTEMI (non-ST elevated myocardial infarction) ([facility]) 12/25/2018 Other malignant neoplasm without specification of site melanoma on arm Problems with hearing Spondylosis of lumbar region without myelopathy or radiculopathy 2017 Unspecified otitis media Past Surgical History: Procedure Laterality Date ANGIOPLASTY STENT CORONARY VIA GROIN N/A 12/26/2018 Procedure: ANGIOPLASTY STENT CORONARY; Surgeon: Champ Fuentes MD; Location: [facility] CATHETERIZATION HEART LEFT N/A 01/01/2019 Procedure: CATHETERIZATION HEART LEFT; Surgeon: Champ Fuentes MD; Location: [facility] ECHO, TRANS ESOPHOGEAL N/A 12/26/2018 Procedure: ECHO, TRANS ESOPHOGEAL; Surgeon: Paco Bradley MD; Location: [facility] OK I&D, POST SPINE, LUMB/SACR/LUMBOSAC OK REMOVE TONSILS/ADENOIDS,12+ Y/O Allergies Allergen Reactions Oxycontin Unknown Reaction Sulfa Antibiotics Rash Skin burning and itching Current Outpatient Medications Medication Sig albuterol (PROVENTIL, VENTOLIN) (2.5 MG/3ML) 0.083% Inhalation Nebu Soln Take 2.5 mg by inhalation. aspirin 81 MG Oral Tab EC Take 1 Tab by mouth DAILY. busPIRone HCl (BUSPAR PO) Take 7.5 mg by mouth THREE TIMES DAILY NEEDED. Cyanocobalamin (B-12) 5000 MCG Subling[address] SL Tab Place 1 Tab under tongue DAILY. duloxetine (CYMBALTA) 30 MG Oral CAPSULE ENTERIC COATED PARTICLES Take 30 mg by mouth EVERY BEDTIME. Esomeprazole Magnesium (NEXIUM) 20 MG Oral Pack Take 40 mg by mouth TWICE DAILY. hydrochlorothiazide (HCTZ, ORETIC) 25 MG Oral Tab Take 1 Tab by mouth DAILY. Indications: High Blood Pressure Disorder HYDROcodone Bitartrate 15 MG Oral Capsule Extended Release 12 hour Abuse- Deterrent Take 15 mgby mouth TWICE DAILY. ipratropium (ATROVENT) 0.03 % Nasal Solution Manning 2 Sprays in nose. levothyroxine (SYNTHROID) 75 MCG Oral Tab Take 1 Tab by mouth BEFORE BREAKFAST. metoprolol (LOPRESSOR) 25 MG Oral Tab Take 0.5 Tabs by mouth TWICE DAILY. Omeprazole delayed rel cap 20 MG Oral CAPSULE DELAYED RELEASE Take 20 mg by mouth DAILY. oxybutynin (DITROPAN) 5 MG Oral Tab Take 5 mg by mouth TWICE DAILY. oxycodone, immediate release, (OXY-IR) 15 MG Oral Tab Take 15 mg by mouth EVERY FOUR HOURS NEEDED. phenazopyridine discharge (PYRIDIUM) 100 MG Oral Tab Take 100 mg by mouth TWO TIMES DAILY NEEDED. quinapril (ACCUPRIL) 10 MG Oral Tab Take 1 Tab by mouth DAILY. Indications: High Blood Pressure Disorder Rosuvastatin Calcium (CRESTOR) 40 MG Oral Tab TAKE 1 TABLET BY MOUTH DAILY ticagrelor (BRILINTA) 90 MG Oral Tab Take 1 Tab by mouth TWICE DAILY. TRAZODONE HCL PO Take 100 mg by mouth EVERY BEDTIME NEEDED. venlafaxine (EFFEXOR XR) 150 MG Oral CAPSULE SR 24 HR Take 150 mg by mouth EVERY TWENTY-FOUR HOURS. No current facility-administered medications for this visit. No family history on file. Social History Socioeconomic History Marital status: Spouse name: Not on file Number of children: Not on file Years of education: Not on file Highest education level: Not on file Occupational History Not on file Social Needs Financial resource strain: Not on file Food insecurity: Worry: Not on file Inability: Not on file Transportation needs: Medical: Not on file Non-medical: Not on file Tobacco Use Smoking status: Current Every Day Smoker Packs/day: 1.50 Years: 49.00 Pack years: 73.50 Types: Cigarettes Smokeless tobacco: Never Used Substance and Sexual Activity Alcohol use: No Drug use: No Sexual activity: Not on file Lifestyle Physical activity: Days per week: Not on file Minutes per session: Not on file Stress: Not on file Relationships Social connections: Talks on phone: Not on file Gets together: Not on file Attends taoism service: Not on file Active member of club or organization: Not on file Attends meetings of clubs or organizations: Not on file Relationship status: Not on file Intimate partner violence: Fear of current or ex partner: Not on file Emotionally abused: Not on file Physically abused: Not on file Forced sexual activity: Not on file Other Topics Concern Not on file Social History Narrative Not on file Nursing Notes: Yaz Posey LPN 01/21/2019 9:32 AM Signed PATIENT: Shu Nagy : 1940 DATE OF SERVICE: 01/21/2019 CARDIOLOGY AMBULATORY NURSING INTAKE FORM HISTORY COLLECTED BY CLINICAL STAFF: Sandro REVIEW OF SYSTEMS: GENERAL: Fever: no Weight loss/gain: yes - loss Fatigue: yes - increased over the past month Recent febrile illness: no NEUROLOGIC: Headache: no Syncope: yes - constant dizziness with movement. CVA/TIA: no Change in sensation: yes - numbness fingers since PCI CARDIOVASCULAR: Chest Pain: yes - chest heaviness/pressure Palpitations: no Orthopnea: yes - 3 pillows at HS Rheumatic Fever (history of): yes - Edema: no RESPIRATORY: Cough: no Shortness Of Breath: yes - with exertion Hemoptysis: no Underlying Lung Disease: yes - COPD GASTROINTESTINAL: Nausea: no Vomiting: no Constipation: no Diarrhea: no Melena: no PUD (history of): no Hematemesis: no Gastrointestinal Disorder: no GENITOURINARY: Hematuria: no Urinary Tract Infection(s): no Nocturia: no Prostate Problem(s): no HEMATOLOGIC: Easy bruising: yes - new medications Bleeding: yes - New medicaitons MUSCULOSKELETAL/PERIPHERAL VASCULAR SYSTEM: Muscle Pain: no Muscle Cramping: yes - Legs Stiffness: no Muscle Weakness: yes - BEHAVIORAL/PSYCH: Depression: yes - on medicaiton ENDOCRINE: Tremors: no Heat or cold intolerance: yes - codl Author: Yaz Posey LPN 01/21/2019 09:17 I have reviewed the ROS obtained by my nurse and concur as detailed above. Physical Exam: Vitals: 01/21/19 0906 BP: 130/58 BP Location: Right arm Patient Position: Sitting Pulse: 52 Weight: 133 lb (60.3 kg) Height: 5' 4" (1.626 m) Body mass index is 22.83 kg/m. General: Well nourished, alert 78-y.o. female in NAD but she is intermittently tearful throughout the exam HEENT: anicteric, MMM, no E/E OP, conj pink Neck: JVP approx 4-5 cm above RA, no carotid bruits or LAD CV: RR, normal S1/S2. 2/6 early-peaking crescendo-decrescendo systolic murmur at RUSB. Separate 2/6 holosystolic and 1/6 diastolic murmur appreciated at apex. No rubs, gallops, or clicks. Pulm: CTA bilaterally without wheezes, rhonchi, or rales. No increased work of breathing at rest. Abd: soft, NT, ND, +BS. No appreciable pulsatile masses or bruits. Ext: no lower extremity edema, no cyanosis, no cords, redness, or warmth, 1-2+ distal pulses Neuro: no gross focal deficits but has some mild memory deficits that are evident. Able to climb onto exam table with minimal assistance. Skin: no visible lesions Labs: Lab Results Component Value Date NA 136 01/02/2019 K 4.2 01/02/2019 CL 102 01/02/2019 CO2 26 01/02/2019 GLUCOSE 88 01/02/2019 BUN 18 (H) 01/02/2019 CREATININE 0.7 01/02/2019 CALCIUM 9.7 01/02/2019 TP 7.5 12/24/2018 ALBUMIN 3.7 12/24/2018 AST 27 12/24/2018 ALT 37 12/24/2018 ALK 146 12/24/2018 TBILI 0.4 12/24/2018 EGFR >60 01/02/2019 No results found for: BNP No results found for: CHOL, TRIG, HDL, LDL, LDLHDLRATIO, CHOLHDLRATIO Cardiac Studies: [place] [facility] [place]/07/2019: -LVEF 55-60%. -Mild-moderate LVH -Moderate MS (MVA by PHT 1.5cm2 and by continuity 1.3cm2) -Mild Limited TTE 01/02/2019: FINAL IMPRESSION: Limited study. Global systolic function is normal with estimated LV EF 60-65 %. No regional wall motion abnormalities. No pericardial effusion. Left Heart Cath 01/01/2019: Patent first diagonal, mid LAD and distal RCA stents. Non-ST elevation DE with no clear culprit identified Patent first diagonal, mid LAD and distal RCA stents. Severe second diagonal and first obtuse marginal stenosis (not amenable to PCI) -will treat with medical therapy. Low normal LV filling pressures Left Heart Cath 12/26/2018: Severe distal RCA stenosis s/p PCI with HITESH. Severe first diagonal stenosis s/p PCI with HITESH Severe mid LAD stenosis s/p OCT guided PCI with HITESH. ARLEN 12/25/2018: FINAL IMPRESSION: There is severe mitral stenosis [...] aortic stenosis. Mild to moderate aortic regurgitation. Assessment & Plan: Shu Nagy is a 78-y.o. female with HTN, hyperlipidemia, COPD, chronic back pain , mild dementia, DM, and rheumatic mitral stenosis/regurgitation as well as mild aortic stenosis. She also has multivessel CAD and had NSTEMI 11/2018. She was evaluated by CTS but d/t her high risk for surgery she underwent PCI with HITESH to the distal RCA, D1, and mLAD on 12/25/2018. ICD-9-CM ICD-10-CM 1. Coronary artery disease involving klamath coronary artery of klamath heart without angina pectoris 414.01 I25.10 LIPID PROFILE CBC NO DIFFERENTIAL 2. Rheumatic mitral stenosis 394.0 I05.0 NT PROBNP COMPREHENSIVE METABOLIC PANEL 3. Aortic valve stenosis, etiology of cardiac valve disease unspecified 424.1 I35.0 4. Essential hypertension 401.9 I10 5. Dyslipidemia 272.4 E78.5 1. Coronary Artery Disease, s/p NSTEMI and Multivessel PCI: Currently has mild and atypical anginalsymptoms that are likely related to her severe diag and OM1 disease which are not amenable to revascularization. I recommend the following: Antiplatelets: Continue aspirin 81 mg daily for life, and Brilinta x at least one year (through December 2019). Statin: Cont Crestor 40mg daily. Checking an FLP in about a month. Beta-brenton: Cont low dose metoprolol. She's not sure if she's taking that, but she's going to call us with an accurate med list. BEATRIZ-inhibitor/ARB: Unsure if she's on quinapril or not, but will continue for now if so. Anti-Anginals: D/C summary from last [facility] [place] indicated that they had started her on 30mg of Imdur. She's not sure if she's taking that. May consider decreasing or stopping BEATRIZ-I at some point in the future and replacing with amlodipine if she continues to have anginal symptoms. Cardiac Rehab: I think she's a bit too frail right now to get much out of cardiac rehab, and she is getting some home health services. At some point in the next few months I'd like her to do CR if possible. 2. Mixed Valvular Disease: Has mod-severe rheumatic MS with significant MR as well as mild . Unfortunately, her MR will probably preclude balloon valvuloplasty, but I think we'll try to treat her MSmedically for now since her MVA is 1.3-1.5cm2 by echo estimates. Cont low dose metoprolol. Checking an NT-proBNP at some point with her other labs. Not yet on a loop diuretic but may need to consider that in the future. Thank you for allowing me to participate in the care of Shu Nagy. We will plan on f/u in our officein 5-6 weeks, with fasting labs a week or so prior. If you have any questions or concerns please feel free to call our office at . Eric Garcia MD, 01/21/2019, 10:01 Time involved was 60 minutes. More than 50% of the physician/patient and or family encounter was spent with counseling and coordination of care. documented in this encounter Plan of Treatment Date Type Specialty Care Team Description 02/16/2019 Lab Internal Medicine 02/25/2019 Office Visit Cardiology Eric Garcia MD [address] [place] [address] [phone] Name Type Priority Associated Diagnoses Order Schedule NT PROBNP Lab Routine Rheumatic mitral Expected: 01/21/2019 stenosis (Approximate), Expires: 01/22/2020 COMPREHENSIVE METABOLIC Lab Routine Rheumatic mitral Expected: 01/21/2019 PANEL stenosis (Approximate), Expires: 01/22/2020 LIPID PROFILE Lab Routine Coronary artery disease Expected: 01/21/2019 of klamath artery of (Approximate), klamath heart with Expires: 01/22/2020 stable angina pectoris (HCC) CBC NO DIFFERENTIAL Lab Routine Coronary artery disease Expected: 2018 of klamath artery of (Approximate), klamath heart with Expires: 07/20/2019 stable angina pectoris (HCC) Health Maintenance Due Date Last Done Comments [...] of this encounter Implants Implanted Type Area [employer]airer Device Shelf Model / Identifier Expiration Serial / Lot Date 2.75 X 40 Orsiro N/A: [id number] / Implanted: Qty: 1 on 12/26/2018 by Champ Fuentes MD at [facility] / [id number] 2.5 X 13 Orsiro N/A: Diagonal [id number] / Implanted: Qty: 1 on 12/26/2018 by Champ Fuentes MD at [facility] / [id number] 3.0 X 15 Orsiro N/A: [id number] / Implanted: Qty: 1 on 12/26/2018 by Champ Fuentes MD at [facility] / [id number] documented as of this encounter Results Not on filedocumented in this encounter Visit Diagnoses Diagnosis 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 (HCC) - Primary Rheumatic mitral stenosis Mitral stenosis Aortic valve stenosis, etiology of cardiac valve disease unspecified Essential hypertension Unspecified essential hypertension Dyslipidemia Other and unspecified hyperlipidemia documented in this encounter Insurance Payer Benefit Plan / Subscriber ID Effective Dates Phone Address Type Group MEDICARE MEDICARE PART A xxxxxxxxxxx 2006-Present Medicare & B MEDICAID [facility] xxxxxxxx 2016-Present Medicaid [place] MED[place] Guarantor Name Account Type Relation to Date of Phone Billing Patient Address YakovAugust Personal/Family 1940 [address] (Home) [facility] [phone] [place], [place] (Work) [address] documented as of this encounter Advance Directives Code Status Date Activated Date Inactivated Comments Full Code 12/31/2018 12:16 AM Does the patient have decision making capacity? Yes Order was discussed with: Patient I discussed all options and patient/surrogate requested and agreed to: Full Code Full Code 12/24/2018 10:04 PM 12/30/2018 11:38 PM Does the patient have decision making capacity? Yes Order was discussed with: Patient I discussed all options and patient/surrogate requested and agreed to: Full Code
--- OUTSIDE RECORDS SUMMARY | 2019-01-25 22:12 | XMS REPORT | Summary of Care ---
:1940 Author Organization [facility] Address [address] [address] Care Team Providers Name Role Phone Sabrina Marquita MICHAEL Primary Care Provider Lorri Marie Chronic Disease Nurse Educator Unavailable Lorri Marie Chronic Disease Nurse Educator Unavailable Reason for Referral Refer to Department Only (Routine) Status Reason Specialty Diagnoses / Referred By Referred To Procedures Contact Contact Pending Review Diagnoses Chronic systolic congestive heart failure (HCC) Patti Funez ANP-C [address] [address] Scheduling Instructions Medicare Home Health: The [id number] visit can be up to 90 days prior to the referral or within 30 days after the referral. The knck-ch-xnsu visit must be related to the reason for which Home Health is needed. See CMS Manual System - Medicare Benefit Policy under Additional Order Details. Reason for Visit Auth/Cert Status Reason Specialty Diagnoses / Procedures Referred By Contact Referred To Contact Encounter Details Date Type Department Care Team Description 12/30/2018 - Hospital Encounter [facility] [address] [place] Liyah Galaviz MD [address] [place] [address] Inpatient 01/02/2019 1 Elena Huston MD [address] [place], [place] [id number] [address] [address] Allergies Active Allergy Reactions Severity Noted Date Comments Oxycontin Unknown Reaction 01/27/2018 Sulfa Antibiotics Rash 06/16/2012 Skin burning and itching documented as of this encounter (statuses as of 01/03/2019) Medications Medication Sig Dispensed Refills Start End Date Status Date Esomeprazole Magnesium Take 40 mg 0 Active (NEXIUM) 20 MG Oral by mouth Pack TWICE DAILY. venlafaxine (EFFEXOR Take 150 mg 0 Active XR) 150 MG Oral CAPSULE by mouth SR 24 HR EVERY TWENTY-FOUR HOURS. HYDROcodone Bitartrate Take 15 mg 0 Active 15 MG Oral Capsule by mouth Extended Release 12 TWICE DAILY. hour Abuse-Deterrent albuterol (PROVENTIL, Take 2.5 mg 0 Active VENTOLIN) (2.5 MG/3ML) by 0.083% Inhalation Nebu inhalation. Soln ipratropium (ATROVENT) Felton 2 0 Active 0.03 % Nasal Solution Sprays in nose. oxycodone, immediate Take 15 mg 0 Active release, (OXY-IR) 15 MG by mouth Oral Tab EVERY FOUR HOURS NEEDED. ticagrelor (BRILINTA) Take 1 Tab 60 Tab 3 Active 90 MG Oral Tab by mouth 9 TWICE DAILY. aspirin 81 MG Oral Tab Take 1 Tab 30 Tab 0 Active EC by mouth 9 DAILY. hydrochlorothiazide Take 1 Tab 30 Tab 0 Active (HCTZ, ORETIC) 25 MG by mouth 9 Oral TabIndications: DAILY. Hypertension Indications: High Blood Pressure Disorder metoprolol (LOPRESSOR) Take 0.5 60 Tab 0 Active 25 MG Oral Tab Tabs by 9 mouth TWICE DAILY. quinapril (ACCUPRIL) 10 Take 1 Tab 60 Tab 0 Active MG Oral TabIndications: by mouth 9 Hypertension DAILY. Indications: High Blood Pressure Disorder busPIRone HCl (BUSPAR Take 7.5 mg 0 Active PO) by mouth THREE TIMES DAILY NEEDED. Omeprazole delayed rel Take 20 mg 0 Active cap 20 MG Oral CAPSULE by mouth DELAYED RELEASE DAILY. duloxetine (CYMBALTA) Take 30 mg 0 Active 30 MG Oral CAPSULE by mouth ENTERIC COATED EVERY PARTICLES BEDTIME. phenazopyridine Take 100 mg 0 Active discharge (PYRIDIUM) by mouth TWO 100 MG Oral Tab TIMES DAILY NEEDED. Cyanocobalamin (B-12) Place 1 Tab 0 Active 5000 MCG Sublingual SL under tongue Tab DAILY. TRAZODONE HCL PO Take 100 mg 0 Active by mouth EVERY BEDTIME NEEDED. oxybutynin (DITROPAN) 5 Take 5 mg by 0 Active MG Oral Tab mouth TWICE DAILY. levothyroxine Take 1 Tab 30 Tab 0 Active (SYNTHROID) 75 MCG Oral by mouth 9 Tab BEFORE BREAKFAST. atorvastatin (LIPITOR) Take 40 mg 0 01/03/20 Discontinued 40 MG Oral Tab by mouth 19 DAILY. levothyroxine Take 50 mcg 0 01/03/20 Discontinued (SYNTHROID) 50 MCG Oral by mouth 19 (Reorder) Tab BEFORE BREAKFAST. gabapentin (NEURONTIN) Take 100 mg 0 01/03/20 Discontinued 100 MG Oral Cap by mouth 19 THREE TIMES DAILY. Celecoxib (CELEBREX PO) Take by 0 01/03/20 Discontinued mouth. 19 Rosuvastatin Calcium Take 1 Tab 30 Tab 11 01/03/20 Discontinued (CRESTOR) 40 MG Oral by mouth 9 19 (Reorder) Tab DAILY. levothyroxine Take 0.75 0 01/03/20 Discontinued (SYNTHROID) 75 MCG Oral Tabs by 9 19 (Reorder) Tab mouth BEFORE BREAKFAST. 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 Trochanteric bursitis of both hips 03/07/2018 Overview: Added automatically from request for surgery [id number] Spondylosis of lumbar region without myelopathy or radiculopathy 01/27/2018 Spondylosis of cervical region without myelopathy or radiculopathy 01/27/2018 Other and combined forms of senile cataract 01/09/2005 documented as of this encounter (statuses as of 01/03/2019) Social History Tobacco Use Types Packs/Day Years [...] Sign Reading Time Taken Comments Blood Pressure 139/79 01/02/2019 7:45 AM EDT Pulse 64 01/02/2019 7:45 AM EDT Temperature 36.6 01/02/2019 7:45 AM EDT C (97.9 F) Respiratory Rate 16 01/02/2019 7:45 AM EDT Oxygen Saturation 93% 01/02/2019 7:45 AM EDT Inhaled Oxygen Concentration - - Weight 60.1 kg (132 lb 9 oz) 01/02/2019 5:00 AM EDT Height 162.6 cm (5' 4") 12/30/2018 11:43 PM EDT Body Mass Index 22.75 12/30/2018 11:43 PM EDT documented in this encounter Discharge Summaries Patti Funez ANP-C - 01/02/2019 2:18 PM EDT [facility] [address]. [id number] Discharge Summary Patient ID: Shu Nagy [id number]. [id number] Admission date: 12/30/2018 Discharge date: 01/02/2019 Admitting Physician: Liyah Galaviz MD Principal Diagnosis: NSTEMI Procedures: Left heart catheterization Other medical problems managed in the hospital: RICARDO Hypokalemia Coronary artery disease (PCI/HITESH to the LAD, diagonal and RCA on 12/26/18) Rheumatic heart disease (mild to moderate MS, moderate AR) Hypertension Dyslipidemia COPD Pulmonary hypertension Diabetes Anxiety/depression disorder Mild dementia Spondylosis Discharged Condition: stable Hospital Course: Mrs. Nagy is a 78 year old female who presented to the ER at [facility] with complaints of chest pain. She had NSTEMI with PCI/ HITESH to the mid LAD, distal RCA and first diagonal on 12/26/18. She was transferred back to [facility] for evaluation. Please refer to the history and physical for full details. NSTEMI: Troponin's were mildly elevated. She had no acute ischemic EKG changes. Echocardiogram was unchanged from her previous with an LVEF of 60 to 65 % and no regional wall motion abnormalities. She had left heart catheterization which showed patent stents. She has severe disease in the second diagonal which was thought not to be amenable to intervention. Her home dose of Crestor was increased from5 mg qd to 40 mg qd. She will continue DAPT for at least one year. RICARDO: Resolved. She will continue her usual home medications. She will have a BMP in one week. Hypertension: Blood pressure is well controlled on her usual home medications. Hypokalemia: Replaced. Patient to be discharged/referred to home with home health servicesSkilled Nursing: medication management and disease process teaching Patient is homebound secondary to diagnosis of COPD andPatient tires after ambulating 20-30 feet andrequires rest every 5 minutes during outing and the remainder of the day following return to home. Consults: None Studies: Echocardiogram: Left heart catheterization: Post Procedure Diagnosis Patient first diagonal, mid LAD and distal RCA stents. Non-ST elevation NE with no clear culprit identified Patent first diagonal, mid LAD and distal RCA stents. Severe second diagonal and first obtuse marginal stenosis (not amenable to PCI) -will treat with medical therapy. Low normal LV filling pressures Diagnostic Dominance: Right Left Main The vessel is large and is angiographically normal. Left Anterior Descending The vessel is large. Two diagonal branches First large diagonal branch has a patent stent Mid LAD has a patent stent Second diagonal branch is a moderate caliber vessel has 80% smooth stenosis with CASSY 3 flow Left Circumflex The vessel is small. One small OM branch The OM1 branch is completely occluded. Remainder of the [id number] via the L to L collaterals. Right Coronary Artery The vessel is large. It gives rise to a large posterior descending artery and a medium caliber rightposterior lateral branch. Patent stent in the distal RCA beyond the posterior descending artery. CXR: Comparison: 12/22/18 Findings: The cardiomediastinal silhouette is within normal limits. There is no consolidation, pleural effusion or pneumothorax. IMPRESSION 1. No active disease in the chest. Labs: WBC Count Date Value Ref Range Status 01/02/2019 6.17 3.98 - 10.04 K/uL Final Comment: Methodology was changed 04/03/2018. Please note updated reference range and units. Hemoglobin Date Value Ref Range Status 01/02/2019 12.2 11.2 - 15.7 g/dL Final Hematocrit Date Value Ref Range Status 01/02/2019 37.0 34.1 - 44.9 % Final Platelet Count Date Value Ref Range Status 01/02/2019 379 (H) 182 - 369 K/uL Final , Sodium Date Value Ref Range Status 01/02/2019 136 134 - 145 mmol/L Final Potassium Date Value Ref Range Status 01/02/2019 4.2 3.5 - 5.1 mmol/L Final Chloride Date Value Ref Range Status 01/02/2019 102 98 - 107 mmol/L Final CO2 Date Value Ref Range Status 01/02/2019 26 22 - 30 mmol/L Final Glucose Date Value Ref Range Status 01/02/2019 88 70 - 99 mg/dl Final BUN Date Value Ref Range Status 01/02/2019 18 (H) 7 - 17 mg/dl Final Creatinine Date Value Ref Range Status 01/02/2019 0.7 0.7 - 1.2 mg/dl Final Calcium Date Value Ref Range Status 01/02/2019 9.7 8.3 - 10.1 mg/dl Final , PTT Date Value Ref Range Status 01/01/2019 64.7 (H) 22.8 - 34.7 SEC Final , No results found for: INR No results found for: TROPONIN No results found for: CHOL, TRIG, HDL, LDL, LDLHDLRATIO, CHOLHDLRATIO No results found for: BNP Physical Exam: Blood pressure 139/79, pulse 64, temperature 97.9 F (36.6 C), temperature source Oral, resp. rate 16, height 5' 4" (1.626 m), weight 132 lb 9 oz (60.1 kg), SpO2 93 %, not currently . Heart: S1S2, RRR Lungs: clear Ext: no edema Medications: Current Discharge Medication List CONTINUE these medications which have changed levothyroxine 75 MCG Tabs Commonly known as: SYNTHROID Dose: 75 mcg What changed: medication strength how much to take Quantity: 30 Tab Refills: 0 Take 1 Tab by mouth BEFORE BREAKFAST. CONTINUE these medications which have NOT CHANGED albuterol (2.5 MG/3ML) 0.083% Nebu Commonly known as: PROVENTIL, VENTOLIN Dose: 2.5 mg Refills: 0 Take 2.5 mg by inhalation. Aspirin 81 MG Tbec Dose: 81 mg Quantity: 30 Tab Refills: 0 Take 1 Tab by mouth DAILY. B-12 5000 MCG Subl Dose: 1 Tab Refills: 0 Place 1 Tab under tongue DAILY. BUSPAR PO Dose: 7.5 mg Refills: 0 Take 7.5 mg by mouth THREE TIMES DAILY NEEDED. duloxetine 30 MG Cpep Commonly known as: CYMBALTA Dose: 30 mg Refills: 0 Take 30 mg by mouth EVERY BEDTIME. EFFEXOR XR 150 MG Cp24 Generic drug: venlafaxine Dose: 150 mg Refills: 0 Take 150 mg by mouth EVERY TWENTY-FOUR HOURS. hydrochlorothiazide 25 MG Tabs Commonly known as: HCTZ, ORETIC Dose: 25 mg For: High Blood Pressure Disorder Quantity: 30 Tab Refills: 0 Take 1 Tab by mouth DAILY. Indications: High Blood Pressure Disorder HYDROcodone Bitartrate 15 MG C12a Dose: 15 mg Refills: 0 Take 15 mg by mouth TWICE DAILY. ipratropium 0.03 % Soln Commonly known as: ATROVENT Dose: 2 Felton Refills: 0 Felton 2 Sprays in nose. metoprolol 25 MG Tabs Commonly known as: LOPRESSOR Dose: 12.5 mg Quantity: 60 Tab Refills: 0 Take 0.5 Tabs by mouth TWICE DAILY. NEXIUM 20 MG Pack Generic drug: Esomeprazole Magnesium Dose: 40 mg Refills: 0 Take 40 mg by mouth TWICE DAILY. Omeprazole delayed rel cap 20 MG Cpdr Dose: 20 mg Refills: 0 Take 20 mg by mouth DAILY. oxybutynin 5 MG Tabs Commonly known as: DITROPAN Dose: 5 mg Refills: 0 Take 5 mg by mouth TWICE DAILY. oxycodone (immediate release) 15 MG Tabs Commonly known as: OXY-IR Dose: 15 mg Refills: 0 Take 15 mg by mouth EVERY FOUR HOURS NEEDED. phenazopyridine discharge 100 MG Tabs Commonly known as: PYRIDIUM Dose: 100 mg Refills: 0 Take 100 mg by mouth TWO TIMES DAILY NEEDED. quinapril 10 MG Tabs Commonly known as: ACCUPRIL Dose: 10 mg For: High Blood Pressure Disorder Quantity: 60 Tab Refills: 0 Take 1 Tab by mouth DAILY. Indications: High Blood Pressure Disorder ticagrelor 90 MG Tabs Commonly known as: BRILINTA Dose: 90 mg Quantity: 60 Tab Refills: 3 Take 1 Tab by mouth TWICE DAILY. TRAZODONE HCL PO Dose: 100 mg Refills: 0 Take 100 mg by mouth EVERY BEDTIME NEEDED. Stop taking these previous medications CELEBREX PO gabapentin 100 MG Caps Commonly known as: NEURONTIN LIPITOR 40 MG Tabs Generic drug: atorvastatin Where to Get Your Medications These medications were sent to [id number] - [place], [place] - [address] [place] [address] AT SEC OF [facility] & [address] [id number] levothyroxine 75 MCG Tabs Patient Instructions: Activity: activity as tolerated Wound Care: Keep wound clean and dry and Observe for redness, swelling or drainage Follow-Up: Follow up with Marquita Bennett NP Follow up with Dr Garcia as previously scheduled BMP in one week. Diet: Cardiac Diet Total time spent on discharge (including medication reconciliation and patient education) was 45 minutes. Patient was seen by Dr. Ramin Aden. He is in agreement with the plan. Provider Signature: PARIS Sabillon documented in this encounter Discharge Instructions InstructionsBaPatti mcdaniel ANP-C - 01/02/2019Provider's Instructions Reason for Admission or Diagnosis: Chest pain Activity/Restrictions: activity as tolerated Skin/Wound Care: Keep wound clean and dry and Observe for redness, swelling or drainage Discharge Diet: Cardiac Diet Special Instructions: Follow up with Marquita Bennett NP in one week Keep your appointment with Dr Garcia on 01/21/19 as scheduled Crestor (Rosuvastatin) has been increased from 5 mg daily to 40 mg daily If you have any questions please feel free to contact me at [phone] ( Saturday - Saturday). Please leave me a message and I will call you back by the end of the day. If you need assistance after 5 pm or on the weekend please call [phone] and ask for the division operations manager cardiology provider. Patti CABALLEROC Discharge Provider: PARIS Sabillon Attending: Elena Price MD Time: 11:45 Nurse's Instructions Problems to report to your Physician: Excessive pain or discomfort Fever > 100.5 degrees Difficulty breathing Increase or smell in wound drainage Follow up: Please call you schedule a Follow up with Marquita Bennett SOCIAL SERVICE DIRECTOR in one week [place] [facility]: 01/21/2019 9:20 AM [facility] to [facility]. *Please Return Patient Satisfaction Survey* AttachmentsThe following attachments cannot be sent through Care Everywhere.CHEST PAIN (DISCHARGE CARE) (KINYARWANDA)documented in this encounter Progress Notes Patti Funez ANP-C - 01/02/2019 12:10 PM EDT [facility] [address] [facility] Attestation Progress Note Patient: Shu Nagy Admission Date: 12/30/18 Discharge Date: 01/02/19 Attending: ELENA PRICE MD ,MD PCP: Marquita Bennett Orders Placed This Encounter Procedures REFER TO HOME HEALTH Patient to be discharged/referred to home with Home Health services: Jail: medication management and disease process teaching Patient is homebound secondary to diagnosis of congestive heart faillure and: Patient tires after ambulating 20-30 feet and requires rest every 5 minutes during outing and the remainder of the day following return to home. Referral Priority: Routine Referral Type: Refer to Department Only Number of Visits Requested: 1 Author: PARIS Sabillon 01/02/2019 12:10 Willa Leggett MD - 01/01/2019 8:18 AM EDT [facility] [address] [facility] [address] Internal Medicine Progress Note Date of Service: 01/01/2019 Patient: hSu Nagy B #: [id number] Attending: ELENA PRICE MD ,MD Subjective: Day 2 of hospitalization, admitted for NSTEMI. Troponins trended down yesterday EKG showing poor R wave progression with tall R waves in V2 compared to previous EKG. Plan for Cathtoday Overnight events: None Current Symptoms: feels tired and weak. Could not sleep well. No chest pain, no shortness of breath, no palpitations. Objective: Alert, oriented X 3 General: cooperative Heart: S1 S2 heard Lungs: decreased breath sound in Both Abd: soft, nontender, nondistended, no masses or organomegaly; BS normal Ext: no edema Neuro: no focal deficits Vitals: Blood pressure 159/71, pulse 63, temperature 97.7 F (36.5 C), temperature source Oral, resp. rate 18, height 5' 4" (1.626 m), weight 133 lb 2 oz (60.4 kg), SpO2 96 %, not currently . I/O: Intake/Output Summary (Last 24 hours) at 01/01/2019817 Last data filed at 01/01/2019 0145 Gross per 24 hour Intake 780 ml Output 1450 ml Net -670 ml Relevant labs and Radiology Results: Recent Labs 12/31/1822112/31/1841001/01/19425 WBC 7.03 6.73 5.79 HGB 11.5 11.7 12.2 HCT 35.0 35.8 37.7 PLAT 333 348 364 Recent Labs 12/31/1822112/31/1841001/01/19425 NA 135 135 138 K 3.6 3.4* 4.3 CL 99 102 104 CO2 27 24 26 GLUCOSE 106* 97 90 BUN 25* 25* 20* CREATININE 1.2 1.0 0.8 CALCIUM 9.6 9.6 9.8 EGFR 44 54 >60 Tests: EKG: No significant ischemic changes CXR: normal Echo: ARLEN 12/25- LVEF 55-60%, Severe mitral stenosis with gradient 7-8, mild to moderate MR. Mild ASwith AR Cath 12/26/18: Severe distal RCA stenosis s/p PCI with HITESH. Severe first diagonal stenosis s/p PCI with HITESH Severe mid LAD stenosis s/p OCT guided PCI with HITESH Assessment/Plan: Principal Problem: NSTEMI (non-ST elevated myocardial infarction) ([facility]) Active Problems: Spondylosis of lumbar region without myelopathy or radiculopathy COPD (chronic obstructive pulmonary disease) ([facility]) Coronary artery disease NSTEMI -Presented with atypical chest pain -Discharged on 12/27 after cath on 12/26 which showed- first diagonal branch 90% stenosis.Culprit lesion, mid LAD-80% stenosis, OM1 branch is completely occluded ,distal RCA:90% stenosed. Not a candidate for CT surgery thus PCI done 12/26- HITESH to mid LAD, first diagonal, distal RCA -Patient is compliant with medications - EKG poor R wave progression in V4-V6 - Troponin elevated to 2.7 and trended down - On heparin drip -C/w aspirin, brilinta, lipitor, metoprolol - Patient is planned for Cath Today. RICARDO -P/w Cr 1.3, down to 0.8 today -Resolved Hypertension - BP ranges between sbp 160- 140 - On Metoprolol 12.5mg twice daily - Continue to monitor. Hypothyroidism -TSH 10 at OSH - Will c/w synthyroid COPD -Not in AE GERD -On protonix Depression -Will c/w venlafaxine and trazodone Insomnia - on Trazodone Isolation Status: DVT Prophylaxis: on heparin drip Skin Care needs: as needed Discharge planning/Disposition: Planned for cath today, possible discharge to home tomorrow. Assessment and plan discussed with Dr. Price Author: Willa Avery MD Associated attestation - Elena Price MD - 01/01/2019 3:53 PM EDTPATIENT: Shu Nagy : 1940 DATE OF ADMISSION: 12/30/18 SUPERVISING ATTENDING NOTE: All relevant medical records were reviewed along with the CV Fellow / Residents. Patient was examined by myself. Lungs: clear bilaterally; Cor: S1, S2, RRR, 1-2/6 Systolic murmur; Ext: No Pedal Edema . Plan discussed and all concerns/questions were addressed. Plan was discussed with the CV Fellow/Residents. Agree with the recommendations. Repeat EKG showed prominent R-waves in V2-3 and slight bump in her Troponin-I. Will plan for cardiaccatheterization (Coronary Angiography) today. Elena Price MD 01/01/2019 15:52 Silvia Lord MD - 12/31/2018 8:43 AM EDT [facility] [place] [address]. [address] Cardiology Progress Note Date of Service: 12/31/2018 Patient: Shu Guardado #: [id number] Attending: ELENA PRICE MD , Subjective: Patient got admitted last night with symptoms of chest pain. Trop elevation to 2.7 with no ekg changes. During my evaluation patient denies chest pain, palpitations, shortness of breath at rest. Objective: Blood pressure 115/63, pulse 66, temperature 98 F (36.7 C), temperature source Oral, resp. rate 20, height 5' 4" (1.626 m), weight 134 lb ( 60.8 kg), SpO2 90 %, not currently . I/O: Intake/Output Summary (Last 24 hours) at 12/31/2018 0843 Last data filed at 12/31/2018 0815 Gross per 24 hour Intake 330 ml Output 800 ml Net -470 ml General: cooperative Neck: No JVD Lungs: CTA Heart: RRR, S1 and S 2+ Abd: soft, nontender, nondistended Ext: warm with normal capillary refill, no edema Musculoskeletal: no DVT Skin: Skin color, texture, turgor normal. No rashes or lesions. Data: WBC Count Date Value Ref Range Status 12/31/2018 6.73 3.98 - 10.04 K/uL Final Hemoglobin Date Value Ref Range Status 12/31/2018 11.7 11.2 - 15.7 g/dL Final Hematocrit Date Value Ref Range Status 12/31/2018 35.8 34.1 - 44.9 % Final Platelet Count Date Value Ref Range Status 12/31/2018 348 182 - 369 K/uL Final No results found for: BNP No results found for: INR Troponin Date Value Ref Range Status 12/31/2018 2.750 (HH) 0.000 - 0.034 ng/ml Final Comment: Negative less than or equal to 0.034 ng/ml Indeterminate 0.0351 - 0.119 ng/ml (Suggest Repeat in 4 Hours) Critical (AMI Cutoff) greater than or equal to 0.120 ng/ml No results found for: CHOL, TRIG, HDL, LDL, LDLHDLRATIO, CHOLHDLRATIO Tests: EKG: No significant ischemic changes CXR: normal Echo: ARLEN 12/25- LVEF 55-60%, Severe mitral stenosis with gradient 7-8, mild to moderate MR. Mild ASwith AR Cath 12/26/18: Severe distal RCA stenosis s/p PCI with HITESH. Severe first diagonal stenosis s/p PCI with HITESH Severe mid LAD stenosis s/p OCT guided PCI with HITESH Assessment/Plan: Principal Problem: NSTEMI (non-ST elevated myocardial infarction) ([facility]) Active Problems: Spondylosis of lumbar region without myelopathy or radiculopathy COPD (chronic obstructive pulmonary disease) ([facility]) Coronary artery disease NSTEMI -Presented with atypical chest pain -Discharged on 12/27 after cath on 12/26 which showed- first diagonal branch 90% stenosis.Culprit lesion, mid LAD-80% stenosis, OM1 branch is completely occluded , distal RCA: 90% stenosed. PCI done- HITESH to mid LAD, first diagonal, distal RCA -Patient is compliant with medications - EKG poor R wave progression in V4-V6 - Troponin elevated to 2.7 and trended down - Will c/w heparin drip -C/w aspirin, brilinta, lipitor, metoprolol - Discussed with obiee obia solution architect Dr. Fuentes, who recommended Cath tomorrow RICARDO -P/w Cr 1.3 -Resolved Hypertension -Stable -Will c/w Hypothyroidism -TSH 10 at OSH - Will c/w synthyroid COPD -Not in AE -Will c/w home inhalers and duo neb GERD -On protonix Depression -Will c/w venlafaxine Assessment and plan discussed with Dr. Price Author: Silvia Lord MDElectronically signed by Elena Price MD at 05/2018 9:12 AM EDT Associated attestation - Elena Price MD - 01/01/2019 9:12 AM EDTPATIENT: Shu Nagy : 1940 DATE OF ADMISSION: 12/30/18 SUPERVISING ATTENDING NOTE: All relevant medical records were reviewed along with the CV Fellow / Residents. Patient was examined by myself. Lungs: clear bilaterally; Cor: S1, S2, RRR, no Systolic murmur; Ext: No Pedal Edema . Plan discussed and all concerns/questions were addressed. Plan was discussed with the CV Fellow/Residents. Agree with the recommendations. Repeat EKG shows prominent R-waves in V2-3. Will plan for cardiac catheterization (Coronary Angiography) in AM. Elena Price MD 01/01/2019 09:11 Ervin Velasco MD - 12/31/2018 2:19 AM EDT Pt seen and examined. Transferred from [facility] for NSTEMI. Prior to arrival to [place], pt c/o chest pressure, onset while laying down, intermittent, non-radiating. Discharged on 12/27/18 for NSTEMI s/p successful PCI to distal-RCA, first diagonal, and mid-LAD. ARLEN at that time showed moderate to severe MS with moderate MR. On my arrival the room, patient was sleeping. She denies any chest pressure/discomfort/pain/sob/nausea. Exam consistent with and MR murmur. Lungs sound clear. Will continue DAPT. Will start heparin. Refer to resident note for full plan. Pt d/w Dr. Falcon. Ervin Velasco MD 12/31/18 02:25 documented in this encounter Plan of Treatment Date Type Specialty Care Team Description 01/21/2019 Office Visit Cardiology Eric Garcia MD [address] [place] [address] [phone] Name Type Priority Associated Diagnoses Date/Time INPT/ED 12 LEAD EKG EKG Routine 12/30/2018 11:51 PM EDT INPT/ED 12 LEAD EKG EKG STAT 12/31/2018 8:50 AM EDT Name Type Priority Associated Diagnoses Order Schedule REFER TO HOME HEALTH Referral Routine Chronic systolic Ordered: 01/02/2019 congestive heart failure (HCC) Health Maintenance Due Date Last Done [...] of this encounter Implants Implanted Type Area Film Sound Coordinator Device Shelf Model / Identifier Expiration Serial / Lot Date 2.75 X 40 Orsiro N/A: [id number] [id number] / Implanted: Qty: 1 on 12/26/2018 by Champ Fuentes MD at [facility] / [id number] 2.5 X 13 Orsiro N/A: Diagonal [id number] / Implanted: Qty: 1 on 12/26/2018 by Champ Fuentes MD at [facility] / [id number] 3.0 X 15 Orsiro N/A: LAD [id number] / Implanted: Qty: 1 on 12/26/2018 by Champ Fuentes MD at [facility] / [id number] documented as of this encounter Procedures Procedure Name Priority Date/Time Associated Comments Diagnosis TTE FOLLOW UP / LIMITED Routine 01/02/2019 10:51 Results for this AM EDT procedure are in the results section. BASIC METABOLIC PANEL Routine 01/02/2019 4:22 Results for this AM EDT procedure are in the results section. CBC NO DIFFERENTIAL Routine 01/02/2019 4:22 Results for this AM EDT procedure are in the results section. ANGIOGRAM,CORONARY Routine 01/01/2019 3:10 Results for this PM EDT procedure are in the results section. CATHETERIZATION HEART Routine 01/01/2019 3:10 Results for this LEFT PM EDT procedure are in the results section. PARTIAL THROMBOPLASTIN Routine 01/01/2019 11:20 Results for this TIME AM EDT procedure are in the results section. MAGNESIUM LEVEL Routine 01/01/2019 4:26 Results for this AM EDT procedure are in the results section. BASIC METABOLIC PANEL Routine 01/01/2019 4:26 Results for this AM EDT procedure are in the results section. CBC NO DIFFERENTIAL Routine 01/01/2019 4:26 Results for this AM EDT procedure are in the results section. PARTIAL THROMBOPLASTIN Routine 01/01/2019 4:26 Results for this TIME AM EDT procedure are in the results section. PARTIAL THROMBOPLASTIN Routine 12/31/2018 7:16 Results for this TIME PM EDT procedure are in the results section. PARTIAL THROMBOPLASTIN Routine 12/31/2018 12:41 Results for this TIME PM EDT procedure are in the results section. TROPONIN Routine 12/31/2018 9:10 Results for this AM EDT procedure are in the results section. URINE MICROSCOPIC WITH Routine 12/31/2018 5:21 Results for this REFLEX CULTURE AM EDT procedure are in the results section. URINALYSIS (LAB) WITH Routine 12/31/2018 5:21 Results for this REFLEX CULTURE AM EDT procedure are in the results section. CBC WITH DIFFERENTIAL Routine 12/31/2018 4:11 Results for this AM EDT procedure are in the results section. MAGNESIUM LEVEL Routine 12/31/2018 4:11 Results for this AM EDT procedure are in the results section. BASIC METABOLIC PANEL Routine 12/31/2018 4:11 Results for this AM EDT procedure are in the results section. PARTIAL THROMBOPLASTIN Routine 12/31/2018 4:11 Results for this TIME AM EDT procedure are in the results section. BASIC METABOLIC PANEL Routine 12/31/2018 2:22 Results for this AM EDT procedure are in the results section. CBC NO DIFFERENTIAL Routine 12/31/2018 2:22 Results for this AM EDT procedure are in the results section. PARTIAL THROMBOPLASTIN Routine 12/31/2018 2:22 Results for this TIME AM EDT procedure are in the results section. XR CHEST 1 VIEW Routine 12/31/2018 2:21 Results for this AM EDT procedure are in the results section. TROPONIN Routine 12/31/2018 12:24 Results for this AM EDT procedure are in the results section. CT HEAD WITHOUT AND WITH Routine 12/22/2018 12:20 Pain IV CONTRAST AM EDT US RETROPERITONEAL Routine 12/22/2018 12:15 Pain LIMITED AM EDT XR CHEST 1 VIEW Routine 12/22/2018 12:00 Pain AM EDT XR HIP 1 VIEW UNILAT Routine 08/12/2018 12:00 Pain W/PELVIS RIGHT AM EDT CT HEAD WITHOUT AND WITH Routine 06/19/2018 12:05 Pain IV CONTRAST AM EDT XR CHEST 1 VIEW Routine 06/19/2018 12:00 Pain AM EDT US ABDOMEN COMPLETE Routine 05/15/2018 12:05 Pain AM EST XR CHEST 2 VIEW PA AND Routine 05/15/2018 12:00 Pain LATERAL (STANDARD) AM EST documented in this encounter Results TTE FOLLOW UP / LIMITED (01/02/2019 10:51 AM EDT) TTE FOLLOW UP / ECHOCARDIOGRAPHY REPORT CARDIOLOGY LIMITED DEPARTMENT Patient Name: August Status: Inpatient MR Number: [id number] Gender: Female : 1940 Location: [place] Age:78 year(s) Exam Date: 01/02/2019 10:51 AM Height: 64 inches Weight: 133 pounds Study Performed: M-Mode, Color Doppler, Limited Study, TTE FOLLOWUP - LIMITED. Ordering ERVIN VELASCO MD Provider: Referring Provider: Metal Room Dental Technician: Irais Moraes [facility] Room Number [id number] Interpreting KELLY Guardado MD,FACC,FACP BSA: 1.64 m^2 Interpreting BMI: 22.83 kg/m^2 Fellow Nurse Technical Quality: Good visualization Heart Rate (HR): 54bpm Blood Pressure (BP): 139/79mmHg INDICATION FOR STUDY: Chest pain. HISTORY: 78 year old female for Chest Pain. Limited study for Ascending Aorta, Pericardial Effusion, LVEF and RWMA. FINAL IMPRESSION: Limited study. Global systolic function is normal with estimated LV EF 60-65 %. No regional wall motion abnormalities. No pericardial effusion. OBSERVATIONS & FINDINGS: Using 2d (3d if applicable), M-mode, Colorflow, Continuous wave doppler and Pulse wave doppler interrogation Left Ventricle Left ventricular cavity size is normal. Left ventricular wall thickness is moderately increased. No regional wall motion abnormalities. Global systolic function is normal with estimated LV EF 60-65 %. Mitral Valve There is "hockey stick" appearance of the anterior mitral leaflet suggestive of rheumatic etiology Pericardium / Pleura There is no pericardial effusion. Miscellaneous Visualized portions of aorta are within normal limits. Measurements & Calculations: M-Mode / 2D Measurements Value Normal Value Normal LVIDd: 3.33 cm 3.5-5.5 LVIDs: 2.25 cm 3.0-4.0 IVSd: 1.3 cm 0.7-1.1 LVPWD: 1.3 cm 0.7-1.1 EF Estimated: 60 % 50-70% Signature Ejection Fraction 60 % CARDIOLOGY DEPARTMENT AV AREA cm2 CARDIOLOGY DEPARTMENT RVSP mmHg CARDIOLOGY DEPARTMENT LA Volume ml CARDIOLOGY DEPARTMENT LVEDd 3.33 cm CARDIOLOGY DEPARTMENT LVESd 2.25 cm CARDIOLOGY DEPARTMENT IVSd 1.3 cm CARDIOLOGY DEPARTMENT LVPWd 1.3 cm CARDIOLOGY DEPARTMENT ESV 17 ml CARDIOLOGY DEPARTMENT EDV 47.75 ml CARDIOLOGY DEPARTMENT AV Mean Gradient mmHg CARDIOLOGY DEPARTMENT Specimen Performing Organization Address [facility] Phone Number CARDIOLOGY DEPARTMENT BASIC METABOLIC PANEL (01/02/2019 4:22 AM EDT) Glucose 88 70 - 99 mg/dl [employer] [facility] BUN 18 (H) 7 - 17 mg/dl [facility] Creatinine 0.7 0.7 - 1.2 mg/dl [facility] Sodium 136 134 - 145 mmol/L [facility] Potassium 4.2 3.5 - 5.1 mmol/L [facility] Chloride 102 98 - 107 mmol/L [facility] CO2 26 22 - 30 mmol/L [facility] Calcium 9.7 8.3 - 10.1 mg/dl [facility] eGFR >60 See Interpretation [facility] Comment: Below ml/min/1.73ml GROUP Estimated GFR Interpretation: LABORATORY Above 60ml/min/1.73m2 = Normal Renal Function 30-59 ml/min/1.73m2 = Stage 3 Chronic Kidney Disease 15-29 ml/min/1.73m2 = Stage 4 Chronic Kidney Disease Less than 15 ml/min/1.73m2 = Stage 5 Chronic Kidney Disease The GFR value is calculated using the Modification of Diet in Renal Disease ( MDRD) Study Equation which can be found at: https://www.kidney.org/content/soww-gliqz-xohzrmva BUN/Creatinine 26 (H) 6 - 22 RATIO [place] [employer] [facility] GROUP LABORATORY Anion Gap 8 3 - 11 mmol/L [facility] Specimen Blood - Blood specimen (specimen) Performing Organization Address City/State/[facility] Phone Number [facility] [address] [facility] [place] [address] CBC NO DIFFERENTIAL (01/02/2019 4:22 AM EDT) WBC Count 6.17Comment: 3.98 - 10.04 [facility] Methodology was K/uL GROUP LABORATORY changed 04/03/2018. Please note updated reference range and units. RBC Count 3.97 3.93 - 5.22 [facility] M/UL [facility]ORY Hemoglobin 12.2 11.2 - 15.7 [facility] g/dL GROUP LABORATORY Hematocrit 37.0 34.1 - 44.9 % [facility] MCV 93.2 79.4 - 94.8 [facility] FL GROUP LABORATORY MCH 30.7 25.6 - 32.2 [facility] PG GROUP LABORATORY MCHC 33.0 32.2 - 35.5 [facility] g/dL GROUP LABORATORY Platelet Count 379 (H) 182 - 369 [facility] K/uL GROUP LAB[facility]ORY MPV 9.9 9.4 - 12.3 FL [facility] RDW 13.3 11.7 - 14.4 % [facility] Specimen Blood - Blood specimen (specimen) Performing Organization Address [facility] Phone Number [facility] [address] [place] [address] [phone] CARDIAC CATHETERIZATION (01/01/2019 3:10 PM EDT) Specimen Narrative Performed At Non-ST elevation NE with no clear culprit identified [facility] POCT Patent first diagonal, mid LAD and distal RCA stents. Severe second diagonal and first obtuse marginal stenosis (not amenable to PCI) -will treat with medical therapy. Low normal LV filling pressures Performing Organization Address [facility] Phone Number [facility] POCT [address] [place] [address] PARTIAL THROMBOPLASTIN TIME (01/01/2019 11:20 AM EDT) PTT 64.7 (H) 22.8 - 34.7 SEC [facility] Specimen Blood - Blood specimen (specimen) Performing Organization Address [facility] Phone Number [facility] [address] [place] [address] PARTIAL THROMBOPLASTIN TIME (01/01/2019 4:26 AM EDT) PTT 61.5 (H) 22.8 - 34.7 SEC [facility] Specimen Blood - Blood specimen (specimen) Performing Organization Address [facility] Phone Number [facility] [address] [place] [address] [phone] CBC NO DIFFERENTIAL (01/01/2019 4:26 AM EDT) WBC Count 5.79Comment: 3.98 - 10.04 [facility] was K/uL GROUP LABORATORY changed 04/03/2018. Please note updated reference range and units. RBC Count 4.00 3.93 - 5.22 [facility] M/UL [facility] Hemoglobin 12.2 11.2 - 15.7 [facility] g/dL GROUP LABORATORY Hematocrit 37.7 34.1 - 44.9 % [facility] MCV 94.3 79.4 - 94.8 [facility] FL GROUP LABORATORY MCH 30.5 25.6 - 32.2 [facility] PG GROUP LABORATORY MCHC 32.4 32.2 - 35.5 [facility] g/dL GROUP LABORATORY Platelet Count 364 182 - 369 [facility] K/uL GROUP LAB[facility]ATORY MPV 10.2 9.4 - 12.3 FL [facility] RDW 13.4 11.7 - 14.4 % [facility] Specimen Blood - Blood specimen (specimen) Performing Organization Address [facility] Phone Number [facility] [address] [place] [address] MAGNESIUM LEVEL (01/01/2019 4:26 AM EDT) Magnesium 1.5 (L) 1.6 - 2.3 MG/DL [facility] Specimen Blood - Blood specimen (specimen) Performing Organization Address [facility] Phone Number [facility] [address] [place] [address] BASIC METABOLIC PANEL (01/01/2019 4:26 AM EDT) Glucose 90 70 - 99 mg/dl [facility] BUN 20 (H) 7 - 17 mg/dl [facility] Creatinine 0.8 0.7 - 1.2 mg/dl [facility] Sodium 138 134 - 145 mmol/L [facility] Potassium 4.3 3.5 - 5.1 mmol/L [facility] Chloride 104 98 - 107 mmol/L [facility] CO2 26 22 - 30 mmol/L [facility] Calcium 9.8 8.3 - 10.1 mg/dl [facility] eGFR >60 See Interpretation [facility] Comment: Below ml/min/1.73ml GROUP Estimated GFR Interpretation: LABORATORY Above 60ml/min/1.73m2 = Normal Renal Function 30-59 ml/min/1.73m2 = Stage 3 Chronic Kidney Disease 15-29 ml/min/1.73m2 = Stage 4 Chronic Kidney Disease Less than 15 ml/min/1.73m2 = Stage 5 Chronic Kidney Disease The GFR value is calculated using the Modification of Diet in Renal Disease ( MDRD) Study Equation which can be found at: https://www.kidney.org/content/smjm-vvpvm-krxcktgh BUN/Creatinine 25 (H) 6 - 22 RATIO [facility] LABORATORY Anion Gap 8 3 - 11 mmol/L [facility] Specimen Blood - Blood specimen (specimen) Performing Organization Address [facility] Phone Number [facility] [address] [facility] [place] [address] [phone] PARTIAL THROMBOPLASTIN TIME (12/31/2018 7:16 PM EDT) PTT 166.2 (HH) 22.8 - 34.7 SEC [facility] Specimen Blood - Blood specimen (specimen) Performing Organization Address [facility] Phone Number [facility] [address] [place] [address] [phone] PARTIAL THROMBOPLASTIN TIME (12/31/2018 12:41 PM EDT) PTT 27.7 22.8 - 34.7 SEC [facility] Specimen Blood - Blood specimen (specimen) Performing Organization Address [facility] Phone Number [facility] [address] [place] [address] TROPONIN (12/31/2018 9:10 AM EDT) Troponin 1.720 (HH) 0.000 - 0.034 [facility] Comment: ng/ml GROUP LABORATORY Negative less than or equal to 0.034 ng/ml Indeterminate 0.0351 - 0.119 ng/ml (Suggest Repeat in 4 Hours) Critical (AMI Cutoff) greater than or equal to 0.120 ng/ml Specimen Blood - Blood specimen (specimen) Performing Organization Address [facility] Phone Number [facility] [address] [place], [place] [id number] [phone] URINE MICROSCOPIC WITH REFLEX CULTURE (12/31/2018 5:21 AM EDT) Urine Wbc 0-2 0 - 5 /HPF [facility] Urine Rbc 0-2 0 - 2 /HPF [facility] Urine Epithelial 2+ None Seen /HPF [place] [employer] GROUP LABORATORY Urine Bacteria 2+ None Seen /HPF [facility] Urine Hyaline Cast 2-5 (A) None Seen /LPF [facility] Specimen Urine - Urine specimen obtained by clean catch procedure (specimen) Performing Organization Address [facility] Phone Number [employer] [facility] [address] [place] [address] URINALYSIS (LAB) WITH REFLEX CULTURE (12/31/2018 5:21 AM EDT) Urine Color Dark Yellow (A) Yellow [facility] Urine Appearance Clear Clear [facility] Urine Glucose Negative Negative mg/dl [facility] Urine Bilirubin Negative Negative [facility] Urine Ketones Negative Negative [facility] Urine Specific 1.010 1.005 - 1.030 [place] [employer] [place] [facility]ORY Urine Blood Negative Negative [place] [employer] [facility] Urine Ph 6.0 5.0 - 8.0 [facility] Urine Protein Negative Negative mg/dl [facility] Urine Urobilinogen 1.0 0.2 - 1.0 [facility] E.U./DL GROUP LABORATORY Urine Nitrite Positive (A) Negative [facility] Urine Leukocytes Negative Negative [facility] Specimen Urine - Urine specimen obtained by clean catch procedure (specimen) Performing Organization Address [facility] Phone Number [facility] [address] [place] [address] MAGNESIUM LEVEL (12/31/2018 4:11 AM EDT) Magnesium 1.6 1.6 - 2.3 MG/DL [facility] Specimen Blood - Blood specimen (specimen) Performing Organization Address [facility] Phone Number [facility] [address] [place] [address] [phone] PARTIAL THROMBOPLASTIN TIME (12/31/2018 4:11 AM EDT) PTT 214.8 (HH) 22.8 - 34.7 SEC [facility] Specimen Blood - Blood specimen (specimen) Performing Organization Address [facility] Number [facility] [address] [place] [address] BASIC METABOLIC PANEL (12/31/2018 4:11 AM EDT) Glucose 97 70 - 99 mg/dl [facility] BUN 25 (H) 7 - 17 mg/dl [facility] Creatinine 1.0 0.7 - 1.2 mg/dl [facility] Sodium 135 134 - 145 mmol/L [facility] Potassium 3.4 (L) 3.5 - 5.1 mmol/L [facility] Chloride 102 98 - 107 mmol/L [facility] CO2 24 22 - 30 mmol/L [facility] Calcium 9.6 8.3 - 10.1 mg/dl [facility] eGFR 54 See Interpretation [facility] Comment: Below ml/min/1.73ml GROUP Estimated GFR Interpretation: Sq LABORATORY Above 60ml/min/1.73m2 = Normal Renal Function 30-59 ml/min/1.73m2 = Stage 3 Chronic Kidney Disease 15-29 ml/min/1.73m2 = Stage 4 Chronic Kidney Disease Less than 15 ml/min/1.73m2 = Stage 5 Chronic Kidney Disease The GFR value is calculated using the Modification of Diet in Renal Disease ( MDRD) Study Equation which can be found at: https://www.kidney.org/content/lmqx-yokxm-jspzgvmc BUN/Creatinine 25 (H) 6 - 22 RATIO [facility]ORY Anion Gap 9 3 - 11 mmol/L [facility] Specimen Blood - Blood specimen (specimen) Performing Organization Address City/State/Zipcode Phone Number [facility] [address] [place] [address] CBC WITH DIFFERENTIAL (12/31/2018 4:11 AM EDT) WBC Count 6.73 3.98 - 10.04 K/uL [facility] RBC Count 3.82 (L) 3.93 - 5.22 M/UL [facility] Hemoglobin 11.7 11.2 - 15.7 g/dL [facility] Hematocrit 35.8 34.1 - 44.9 % [facility] MCV 93.7 79.4 - 94.8 FL [facility] MCH 30.6 25.6 - 32.2 PG [facility] MCHC 32.7 32.2 - 35.5 g/dL [facility] Platelet Count 348 182 - 369 K/uL [facility] MPV 10.2 9.4 - 12.3 FL [facility] RDW 13.7 11.7 - 14.4 % [facility] Neutrophil % 54.0 34.0 - 71.1 % [facility] Lymphocyte % 29.7 19.3 - 51.7 % [facility] Monocyte % 9.8 4.7 - 12.5 % [facility] Eosinophil % 4.9 0.7 - 5.8 % [facility] Basophil % 0.4 0.1 - 1.2 % [facility] nRBC % 0.0 0.0 - 0.2 % [facility] Neutrophil # 3.63 1.56 - 6.13 K/UL [facility] Lymphocyte # 2.00 1.18 - 3.74 K/UL [facility] Monocyte # 0.66 0.24 - 0.86 K/UL [facility] Eosinophil # 0.33 0.04 - 0.36 K/UL [facility] Basophil # 0.03 0.01 - 0.08 K/UL [facility] Immature Gran % 1.2 (H) 0.0 - 0.4 % [facility] Immature Gran # 0.08 (H) 0.00 - 0.03 K/uL [facility] NRBC # 0.00 0.00 - 0.12 K/uL [facility] Specimen Blood - Blood specimen (specimen) Performing Organization Address [facility] Phone Number [facility] [address] [place] [address] [phone] BASIC METABOLIC PANEL (12/31/2018 2:22 AM EDT) Glucose 106 (H) 70 - 99 mg/dl [facility] BUN 25 (H) 7 - 17 mg/dl [facility] Creatinine 1.2 0.7 - 1.2 mg/dl [facility] Sodium 135 134 - 145 mmol/L [facility] Potassium 3.6 3.5 - 5.1 mmol/L [facility] Chloride 99 98 - 107 mmol/L [facility] CO2 27 22 - 30 mmol/L [facility] Calcium 9.6 8.3 - 10.1 mg/dl [facility] eGFR 44 See Interpretation [facility] Comment: Below ml/min/1.73ml GROUP Estimated GFR Interpretation: LABORATORY Above 60ml/min/1.73m2 = Normal Renal Function 30-59 ml/min/1.73m2 = Stage 3 Chronic Kidney Disease 15-29 ml/min/1.73m2 = Stage 4 Chronic Kidney Disease Less than 15 ml/min/1.73m2 = Stage 5 Chronic Kidney Disease The GFR value is calculated using the Modification of Diet in Renal Disease ( MDRD) Study Equation which can be found at: https://www.kidney.org/content/wfst-rmeyi-xiywjulo BUN/Creatinine 21 6 - 22 RATIO [facility] Anion Gap 9 3 - 11 mmol/L [facility] Specimen Blood - Blood specimen (specimen) Performing Organization Address City/[facility] Phone Number [facility] [address] [facility] [address] PARTIAL THROMBOPLASTIN TIME (12/31/2018 2:22 AM EDT) PTT 30.9 22.8 - 34.7 SEC [facility] Specimen Blood - Blood specimen (specimen) Performing Organization Address [facility] Phone Number [facility] [address] [place] [address] CBC NO DIFFERENTIAL (12/31/2018 2:22 AM EDT) WBC Count 7.03Comment: 3.98 - 10.04 [facility] was K/uL GROUP LABORATORY changed 04/03/2018. Please note updated reference range and units. RBC Count 3.71 (L) 3.93 - 5.22 [facility] M/UL [facility] Hemoglobin 11.5 11.2 - 15.7 [facility] g/dL [facility] Hematocrit 35.0 34.1 - 44.9 % [facility] MCV 94.3 79.4 - 94.8 [facility] FL [facility] MCH 31.0 25.6 - 32.2 [facility] PG [facility] MCHC 32.9 32.2 - 35.5 [facility] g/dL [facility] Platelet Count 333 182 - 369 [facility] K/uL [facility] MPV 9.8 9.4 - 12.3 [place] [facility] RDW 13.4 11.7 - 14.4 % [facility] Specimen Blood - Blood specimen (specimen) Performing Organization Address [facility] Phone Number [facility] [address] [place] [address] XR CHEST 1 VIEW (12/31/2018 2:21 AM EDT) Specimen Impressions Performed At 1. No active disease in the chest. Signed by Bart Garcia on 12/31/2018 2:22 AM Narrative Performed At Procedure: XR CHEST 1 VIEW Date of service: 12/31/2018 2:05 AM History: 78 years, Female, "Chest pain" Technique: AP view of chest Comparison: 12/22/18 Findings: The cardiomediastinal silhouette is within normal limits. There is no consolidation, pleural effusion or pneumothorax. Procedure Note Interface, Rad Results - 12/31/2018 2:24 AM EDT Procedure: XR CHEST 1 VIEW Date of service: 12/31/2018 2:05 AM History: 78 years, Female, "Chest pain" Technique: AP view of chest Comparison: 12/22/18 Findings: The cardiomediastinal silhouette is within normal limits. There is no consolidation, pleural effusion or pneumothorax. IMPRESSION 1. No active disease in the chest. Signed by Bart Garcia on 12/31/2018 2:22 AM TROPONIN (12/31/2018 12:24 AM EDT) Troponin 2.750 (HH) 0.000 - 0.034 [facility] Comment: ng/ml [facility] Negative less than or equal to 0.034 ng/ml Indeterminate 0.0351 - 0.119 ng/ml (Suggest Repeat in 4 Hours) Critical (AMI Cutoff) greater than or equal to 0.120 ng/ml Specimen Blood - Blood specimen (specimen) Performing Organization Address [facility] Phone Number [facility] [address] [address] [phone] CT HEAD WITHOUT AND WITH IV CONTRAST (12/22/2018 12:20 AM EDT) Specimen Performing Organization Address [facility] Phone Number [facility] [address] [place] [address] [place] RETROPERITONEAL LIMITED (12/22/2018 12:15 AM EDT) Specimen Performing Organization Address [facility] Phone Number [facility] [address] [address] XR CHEST 1 VIEW (12/22/2018 12:00 AM EDT) Specimen Performing Organization Address [facility] Phone Number [facility] [address] [place] [address] XR HIP 1 VIEW UNILAT W/PELVIS RIGHT (08/12/2018 12:00 AM EDT) Specimen Performing Organization Address [facility] Phone Number [facility] [address] [address] [address] HEAD WITHOUT AND WITH IV CONTRAST (06/19/2018 12:05 AM EDT) Specimen Performing Organization Address [facility] Phone [facility] [address] [address] [place] [address] XR CHEST 1 VIEW (06/19/2018 12:00 AM EDT) Specimen Performing Organization Address [facility] Phone Number [facility] [address] [place] [address] [place] ABDOMEN COMPLETE (05/15/2018 12:05 AM EST) Specimen Performing Organization Address [facility]/State/Zipcode Phone Number [facility] [address] [place] [address] XR CHEST 2 VIEW PA AND LATERAL (STANDARD) (05/15/2018 12:00 AM EST) Specimen Performing Organization Address [facility]/Zipcode Phone Number [facility] [address] [place] [address] documented in this encounter Visit Diagnoses Diagnosis NSTEMI (non-ST elevated myocardial infarction) ([facility]) - Primary Acute myocardial infarction, subendocardial infarction, episode of care unspecified Pain Generalized pain Chronic systolic congestive heart failure (HCC) Chronic systolic heart failure COPD (chronic obstructive pulmonary disease) (HCC) Chronic airway obstruction, not elsewhere classified Coronary artery disease Coronary atherosclerosis of unspecified type of vessel, nikolski or graft 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 spondylosis without myelopathy documented in this encounter Administered Medications Medication Order MAR Action Action Date Dose Rate Site albuterol (PROVENTIL, VENTOLIN) Given 12/31/2018 4:55 AM EDT 2.5 mg nebulizer solution (RT ADMIN) (5 MG/ML) 0.5% 2.5 mg, Inhalation-SVN, RT Q4 HRS, Starting Sat12/31/18 at 0028, Until Sat12/31/18 at 0512, PER RT FREQUENCY albuterol (PROVENTIL, VENTOLIN) nebulizer Given 01/01/2019 7:40 AM EDT 2.5 mg solution (RT ADMIN) (5 MG/ML) 0.5% 2.5 mg, Inhalation-SVN, RT BID, Starting Sat12/31/18 at 0511, Until Meron 01/01/19 at 0751, PER RT FREQUENCY Given 12/31/2018 9:17 PM EDT 2.5 mg albuterol (PROVENTIL, VENTOLIN) nebulizer solution (RT ADMIN) (5 MG/ML) 0.5% 2.5 mg, Inhalation-SVN, Q4 HRS PRN, Starting Sat01/01/19 at 0800, Until 07/18 at 1619, PER RT FREQUENCY aspirin (ECOTRIN) enteric coated tablet 81 mg Given 01/02/2019 8:32 AM EDT 81 mg 81 mg, Oral, DAILY, First dose on Sat12/31/18 at 0900, Until Discontinued Given 01/01/2019 8:36 AM EDT 81 mg Given 12/31/2018 8:46 AM EDT 81 mg atorvastatin (LIPITOR) tablet 40 mg Given 01/02/2019 8:32 AM EDT 40 mg 40 mg, Oral, DAILY, First dose on Sat12/31/18 at 0900, Until Discontinued Given 01/01/2019 8:36 AM EDT 40 mg Given 12/31/2018 8:46 AM EDT 40 mg enoxaparin (LOVENOX) injection Given 01/01/2019 8:44 PM EDT 40 mg Abdominal Tissue 40 mg/0.4 mL 40 mg 40 mg, Subcutaneous, Q24 HRS, 5 doses, First dose on Sat01/01/19 at 2100, Last dose on Sat01/05/19 at 2100 heparin in dextrose 5% IV Rate Verify 01/01/2019 8:36 AM 620 Units/hr 6.2 mL/hr premix 100 units/mL EDT 720 Units/hr (7.2 mL/hr), Intravenous, at 7.2 mL/hr, TITRATE, Starting Sat12/31/18 at 0310, Until Sat01/01/19 at 1519 Rate Change 01/01/2019 5:48 AM EDT 620 Units/hr 6.2 mL/hr Restarted 12/31/2018 9:49 PM EDT 520 Units/hr 5.2 mL/hr heparin injection [id number] UNIT/ML Given 12/31/2018 3:00 AM EDT 3,600 Units 3,600 Units, Intravenous Push, X1, 1 dose, First dose on Sat12/31/18 at 0310 heparin injection [id number] UNIT/ML Given 12/31/2018 1:35 PM EDT 1,000 Units 1,000 Units, Intravenous Push, Q6 HRS PRN, Starting Sat12/31/18 at 0208, Until Sat01/01/19 at 1519, PTT < 50 - Give 1000 unit bolus IV and increase infusion by 200 units/hour levothyroxine (SYNTHROID) tablet 50 mcg Given 01/02/2019 4:28 AM EDT 50 mcg 50 mcg, Oral, PRE BREAKFAST, First dose on Sat12/31/18 at 0600, Until Discontinued Given 01/01/2019 5:06 AM EDT 50 mcg Given 12/31/2018 5:34 AM EDT 50 mcg metoprolol (LOPRESSOR) tablet (1/2X25mg) Given 01/02/2019 8:32 AM EDT 12.5 mg 12.5 mg 12.5 mg, Oral, BID, First dose (after last modification) on Sat12/31/18 at 0900, Until Discontinued Given 01/01/2019 8:44 PM EDT 12.5 mg Given 01/01/2019 8:36 AM EDT 12.5 mg normal saline IV New Bag 12/31/2018 3:31 AM EDT 75 mL/hr Intravenous, at 75 mL/hr, CONTINUOUS, Starting Sat12/31/18 at 0210, Until Sat12/31/18 at 0737 normal saline IV New Bag 01/01/2019 8:35 AM EDT 100 mL/hr Intravenous, at 100 mL/hr, CONTINUOUS, Starting Sat12/31/18 at 1840, Until Meron 01/01/19 at 1534, 2 Day of Surgery Pre Procedure OXYcodone (OXY-IR,OXY-FAST) immediate release Given 12/31/2018 9:13 PM EDT 15 mg tablet 15 mg 15 mg, Oral, Q4 HRS PRN, Starting Sat12/31/18 at 0027, Until Sat01/02/19 at 1619, Moderate Pain (pain scale 4-6)PO 2nd line - if immediate effect not required & can tolerate PO and still has moderate pain 4 hrs after admin of 1st line agent or did not tolerate 1st line agent pantoprazole (PROTONIX) enteric coated tablet Given 01/02/2019 4:28 AM EDT 40 mg 40 mg 40 mg, Oral, PRE BREAKFAST, First dose on Sat12/31/18 at 0600, Until Discontinued Given 01/01/2019 5:06 AM EDT 40 mg Given 12/31/2018 5:34 AM EDT 40 mg perflutren lipid microsphere (DEFINITY) injection 0.5 mL 0.5 mL, Intravenous Push, PRN, Starting Sat01/02/19 at 0926, Until Sat01/02/19 at 1619, Poor visualization (see Admin Instructions for details) up to a max dose of 10 mL potassium chloride (K-DUR) controlled Given 12/31/2018 11:47 AM EDT 40 mEq release tablet 40 mEq 40 mEq, Oral, Q1 HR, 2 doses, First dose on Sat12/31/18 at 1010, Last dose on Sat12/31/18 at 1110 Given 12/31/2018 10:10 AM EDT 40 mEq SODIUM CHLORIDE 0.9 % IV SOLN 1 dose, Starting Sat12/31/18 at 0317, Until Sat01/02/19 at 1619, Kj Andrade: cabinet override, SODIUM CHLORIDE 0.9 % IV SOLN 1 dose, Starting Sat01/01/19 at 0826, Until Sat01/01/19 at 0835, Geraldine Garnica : cabinet override, ticagrelor (BRILINTA) tablet 90 mg Given 01/02/2019 8:32 AM EDT 90 mg 90 mg, Oral, BID, First dose on Sat12/31/18 at 0040, Until Discontinued Given 01/01/2019 8:44 PM EDT 90 mg Given 01/01/2019 8:36 AM EDT 90 mg trazodone (DESYREL) tablet 100 mg Given 01/01/2019 8:44 PM EDT 100 mg 100 mg, Oral, QHS, First dose on Sat12/31/18 at 2130, Until Discontinued Given 12/31/2018 9:44 PM EDT 100 mg venlafaxine (EFFEXOR XR) 24 hour capsule 150 Given 01/02/2019 8:32 AM EDT 150 mg mg 150 mg, Oral, Q24 HRS, First dose on Sat01/01/19 at 0900, Until Discontinued Given 01/01/2019 8:45 AM EDT 150 mg documented in this encounter Insurance Payer Benefit Plan / Subscriber ID Effective Dates Phone Address Type Group MEDICARE MEDICARE PART A xxxxxxxxxxx 2006-Present Medicare & B MEDICAID [facility] xxxxxxxx 2016-Present [place] ([address] [phone] [place], [place] (Work) [id number] documented as of this encounter Advance Directives [...]
--- OUTSIDE RECORDS SUMMARY | 2019-01-25 22:12 | XMS REPORT | Continuity of Care Document ---
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 [place] Care Team Information Education Diagnostician Problems Active Problems Provider Date Hyperlipidemia Martha [...] Medications SIG Qnty Indications Ordering Date Provider Amitiza 1 cap by mouth three 90caps K59.03 Martha Bennett, 01/13/2019 8mcg times a day for , PHD Capsules constipation M54.5 Zohydro ER 1 tab by mouth 14units M79.606 Martha Bennett MD, 01/13/2019 15mg C12a twice a day PHD M54.6 I25.119 Methocarbamol 1 tabs by mouth at 14tabs M54.5 Martha Bennett, 01/13/2019 500mg Tablets bedtime , PHD M79.606 Nitrostat 1 tab sl every 5 30tabs Martha Bennett, 01/13/2019 0.4mg Tablets Sub josé miguel x3 as needed , PHD for chest pain. Venlafaxine HCL ER 1 by mouth every 90caps I25.119 Martha Bennett, 2018 150mg day , PHD Caps ER 24HR F32.0 Docu Soft 1 caps by mouth 60caps K59.03 Martha Bennett MD, 01/13/2019 100mg twice a day PHD Capsules Walker Two wheeled walker 1units M19.90 Martha Bennett MD, 01/12/2019 [facility] standard size. PHD R26.81 S22.009G Aspirin 81 Take 1 Tab by mouth 30tabs Unknown 12/28/2018 81mg Tablets Daily. Quinapril HCL Take 1 Tab by mouth 60tabs Unknown 12/28/2018 10mg Daily. Indications: Tablets High Blood Pressure Disorder Brilinta Take 1 Tab by mouth 60tabs Unknown 12/27/2018 90mg Tablets Twice Daily. Metoprolol Tartrate Take 0.5 Tabs by 60tabs Unknown 12/27/2018 25mg mouth Twice Daily. Tablets Oxycodone HCL 1 tab by mouth three 90tabs Martha Bennett, 12/17/2018 15mg times a day as needed , PHD Tablets Advair HFA 1 puffs inhaled twice 12gm J44.9 Martha Bennett, 12/17/2018 115-21mcg/Act a day , PHD Aerosol Omeprazole Take 1 Capsule By 30caps Martha Bennett, 09/05/2018 20mg Capsules Mouth Every Day , PHD Back Support Women Elastic 1units M54.6 Martha Bennett, 06/26/2018 [facility] Adjustable Shoulder , PHD Brace Waist Belt Back Support Posture Corrector,Posture Corrector, Shoulder Support Brace M54.5 S22.000D Wheelchair [facility] M54.5 Martha Bennett MD, PHD M54.6 Tylenol [...] needed for pain and swelling K21.9 R13.14 Isosorbide Mononitrate ER 1 by mouth every Unknown 30mg day Tablets ER 24HR Ipratropium [place] 2 Sprays in Unknown 0.03% nose. Solution Albuterol Sulfate Take 2.5 mg by Unknown (2.5mg/3ML) inhalation. 0.083% Nebulizer Gabapentin Take 100 mg by Unknown 100mg Capsules mouth Three Times Daily. Synthroid 1 by mouth every 90tabs Martha Bennett MD, 75mcg Tablets day PHD Rosuvastatin Calcium 1 tab by mouth 90tabs Martha Bennett MD, 5mg Tablets every day PHD History Medications Hydrochlorothiazide Take 1 Tab by 30tabs Unknown 12/28/2018 - 25mg mouth Daily. 01/13/2019 Tablets Indications: High Blood Pressure Disorder Magnesium Gluconate tab by mouth twice 60tabs M79.60 [place], 12/17/2018 - 500mg a day muscle 6 MD Martha, 01/13/2019 Tablets spasms PHD B12 Fast Dissolve tab by mouth every 90tabs M79.60 [place], 12/17/2018 - 5000mcg day 6 MD Martha, 01/13/2019 Tablets Dispers PHD Nac 600 1 cap by mouth 90caps F32.0 [place], 12/17/2018 - 600mg Capsules three times a day MD Martha, 01/13/2019 after meals PHD Oxybutynin Chloride by mouth twice a 60tabs [place], 12/17/2018 - 5mg Tablets day MD Martha, 01/13/2019 PHD Quinapril HCL 1 tab by mouth 90tabs [place], 12/17/2018 - 20mg Tablets every day MD Martha, 12/17/2018 PHD Quinapril HCL 1 by mouth every [place], 12/17/2018 - 10mg Tablets day MD Martha, 01/13/2019 PHD Baclofen take 1 tablet by 30tabs [place], 11/20/2018 - 5mg Tablets mouth at bedtime MD Martha, 01/13/2019 as needed PHD Buspirone HCL take one tablet by 90tabs [place], 10/20/2018 - 7.5mg Tablets mouth three times MD Martha, 01/13/2019 a day as needed PHD Baclofen Take 1 Tablet By 90tabs [place], 10/15/2018 - 5mg Tablets Mouth AT Bedtime MD Martha, 10/20/2018 as Needed PHD Aspirin Ec Low Dose 1 by mouth every 90tabs [place]rina, 09/15/2018 - 81mg day MD Martha, 12/17/[address] SHEPHERD Macrobid 1 cap by mouth 20caps R35.0 [place], 09/05/2018 - 100mg Capsules twice a day MD Martha, 10/16/2018 PHD D3 Maximum Strength 1 cap by mouth 90caps M54.6 [place], 09/05/2018 - 5000Unit every day MD Martha, 12/17/2018 Capsules PHD M79.606 Tizanidine HCL 1 tab by mouth at 14caps M54.6 Martha Bennett, 09/05/2018 - bedtime as needed , PHD 12/17/2018 2mg Capsules for muscle spasm Pyridium 1 tab by mouth 60tabs R10.2 Martha Bennett, 09/05/2018 - 100mg twice a day every MD PHD 12/17/2018 Tablets evening as needed Duloxetine HCL 1 tab by mouth 30caps F33.1 Martha Bennett, 09/05/2018 - every night - stop , PHD 01/13/[address] Ayers venlafaxine CBD [place] 1 apply to affected 15units Martha Bennett, 08/18/2018 - area every day , PHD 10/16/2018 4-3-9-1.2% [place] Oxycodone HCL 1 tab by mouth 90tabs Martha Bennett, 08/18/2018 - three times a day , PHD 12/17/2018 15mg Tablets as needed Diazepam 1 tab by mouth 14tabs Martha Bennett, 08/06/2018 - 5mg twice a day as , PHD 09/05/2018 Tablets needed for muscle spasm Immunizations CPT Code Status Date Vaccine Lot # [id number] Given 12/17/2018 Influenza Virus Vaccine, Quadrivalent, 36 Mos+, .5ML Vital Signs Date Vital Result Comment 01/13/2019 2:42pm BP Systolic 99 mmHg BP Diastolic 62 mmHg Body Temperature 97.1 F Heart Rate 82 /min Respiratory Rate 20 /min Height 63 inches 5'3" Weight 130.00 lb BMI (Body Mass Index) 23.0 kg/m2 BSA (Body Surface Area) 1.61 m2 [place] body weight in kilograms 52 kg O2 % BldC Oximetry 99 % 12/17/2018 10:00am BP Systolic 169 mmHg BP Diastolic 89 mmHg Body Temperature 97.3 F Heart Rate 69 /min Respiratory Rate 20 /min Height 63 inches 5'3" Weight 139.00 lb BMI (Body Mass Index) 24.6 kg/m2 BSA (Body Surface Area) 1.66 m2 [place] body weight in kilograms 52 kg O2 % BldC Oximetry 95 % Results Test Date Facility Test Result H/L Range Note Laboratory test 01/07/20 [facility] Troponin I 0.09 ng/mL Critical <0.04 1 finding 97 [phone] high CBC Auto Diff 01/07/20 [facility] White Blood 13.3 High 3.5-10.8 19 [phone] Count 10^3/uL Red Blood Count 4.51 10^6/uL Normal 3.70-4.87 Hemoglobin 14.1 g/dL Normal 12.0-16.0 Hematocrit 42 % Normal 35-47 Mean Corpuscular Volume 92 fL Normal 80-97 Mean Corpuscular Hemoglobin 31 pg Normal 27-31 Mean Corpuscular HGB Conc 34 g/dL Normal 31-36 Red Cell Distribution Width 14 % Normal 10-15 Platelet Count 399 10^3/uL Normal 150-450 Mean Platelet Volume 8.0 fL Normal 7.4-10.4 Abs Neutrophils 11.8 10^3/uL High 1.5-7.7 Abs Lymphocytes 0.7 10^3/uL Low 1.0-4.8 Abs Monocytes 0.6 10^3/uL Normal 0-0.8 Abs Eosinophils 0.1 10^3/uL Normal 0-0.6 Abs Basophils 0.1 10^3/uL Normal 0-0.2 Abs Nucleated RBC 0.0 10^3/uL Granulocyte % 88.4 % Lymphocyte % 5.2 % Monocyte % 4.9 % Eosinophil % 1.1 % Basophil % 0.4 % Nucleated Red Blood Cells % 0.0 Laboratory 01/06/2019 [facility] B Type 157 pg/mL High <=100 test finding [phone] Natriuretic Peptide Inr/Protime 01/06/2019 [facility] Inr 1.01 Normal 0.82-1.0 2 [phone] Laboratory 01/06/2019 [facility] Activated 34.5 Normal 26.0-38. test finding [phone] Partial Thrombo seconds 0 Time Comp Metabolic 01/06/2019 [facility] Sodium 132 mmol/ L Low 135-145 Panel [phone] Potassium 3.4 mmol/L Low 3.5-5.0 Chloride 98 mmol/L Low 101-111 Co2 Carbon Dioxide 22 mmol/L Normal 22-32 Anion Gap 12 mmol/L High 2-11 Glucose 150 mg/dL High 70-100 Blood Urea Nitrogen 24 mg/dL Normal 6-24 Creatinine 1.52 mg/dL High 0.51-0.95 BUN/Creatinine Ratio 15.8 Normal 8-20 Calcium 9.7 mg/dL Normal 8.6-10.3 Total Protein 7.9 g/dL Normal 6.4-8.9 Albumin 4.3 g/dL Normal 3.2-5.2 Globulin 3.6 g/dL Normal 2-4 Albumin/Globulin Ratio 1.2 Normal 1-3 Total Bilirubin 0.40 mg/dL Normal 0.2-1.0 Alkaline Phosphatase 136 U/L High 34-104 Alt 15 U/L Normal 7-52 Ast 22 U/L Normal 13-39 Egfr Non- 33.2 >60 Egfr 40.1 >60 3 Laboratory test 01/06/2019 [facility] Magnesium 1.6 mg/dL Low 1.9-2.7 finding [phone] Creatine Kinase 24 U/L Normal 10-223 Troponin I 0.10 ng/mL Critical high <0.04 4 CKMB 01/06/2019 [facility] CKMB 1.2 ng/mL Normal 0.6-6.3 [phone] ng/mL Laboratory test 12/30/2018 [facility] T4 7.78 Normal 6.09-12.23 finding [phone] g/dL TSH (Thyroid Stim Horm) 10.33 mcIU/mL High 0.34-5.60 CKMB 12/30/2018 [facility] CKMB ng/mL 2.3 ng/mL Normal 0.6-6.3 [phone] Laboratory 12/30/2018 [facility] Troponin I 2.63 Critical <0.04 5 test finding [phone] ng/[phone] high Creatine Kinase 59 U/L Normal 10-223 Comp Metabolic 12/30/2018 [facility] Sodium 133 mmol/ L Low 135-145 Panel [phone] Potassium 3.6 mmol/L Normal 3.5-5.0 Chloride 99 mmol/L Low 101-111 Co2 Carbon Dioxide 28 mmol/L Normal 22-32 Anion Gap 6 mmol/L Normal 2-11 Glucose 121 mg/dL High 70-100 Blood Urea Nitrogen 25 mg/dL High 6-24 Creatinine 1.31 mg/dL High 0.51-0.95 BUN/Creatinine Ratio 19.1 Normal 8-20 Calcium 9.6 mg/dL Normal 8.6-10.3 Total Protein 7.0 g/dL Normal 6.4-8.9 Albumin 3.7 g/dL Normal 3.2-5.2 Globulin 3.3 g/dL Normal 2-4 Albumin/Globulin Ratio 1.1 Normal 1-3 Total Bilirubin 0.50 mg/dL Normal 0.2-1.0 Alkaline Phosphatase 106 U/L High 34-104 Alt 20 U/L Normal 7-52 Ast 18 U/L Normal 13-39 Egfr Non- 39.4 >60 Egfr 47.6 >60 6 Laboratory test 12/30/2018 [facility] B Type 106 pg/ mL High <=100 finding [phone] Natriuretic Peptide Activated Partial Thrombo Time 33.8 seconds Normal 26.0-38.0 D Dimer Quantitative 574 ng/mL High Less Than 230 7 Lactic Acid 1.0 mmol/L Normal 0.5-2.0 8 Inr/Protime 12/30/2018 [facility] Inr 1.04 Normal 0.82-1.09 9 [phone] CBC Auto Diff 12/30/2018 [facility] White Blood 7.8 Normal 3.5-10.8 [phone] Count 10^3/uL Red Blood Count 3.98 10^6/uL Normal 3.70-4.87 Hemoglobin 12.3 g/dL Normal 12.0-16.0 Hematocrit 37 % Normal 35-47 Mean Corpuscular Volume 93 fL Normal 80-97 Mean Corpuscular Hemoglobin 31 pg Normal 27-31 Mean Corpuscular HGB Conc 33 g/dL Normal 31-36 Red Cell Distribution Width 14 % Normal 10-15 Platelet Count 362 10^3/uL Normal 150-450 Mean Platelet Volume 8.1 fL Normal 7.4-10.4 Abs Neutrophils 5.0 10^3/uL Normal 1.5-7.7 Abs Lymphocytes 1.6 10^3/uL Normal 1.0-4.8 Abs Monocytes 0.8 10^3/uL Normal 0-0.8 Abs Eosinophils 0.3 10^3/uL Normal 0-0.6 Abs Basophils 0.1 10^3/uL Normal 0-0.2 Abs Nucleated RBC 0.0 10^3/uL Granulocyte % 64.4 % Lymphocyte % 20.0 % Monocyte % 10.6 % Eosinophil % 3.7 % Basophil % 1.3 % Nucleated Red Blood Cells % 0.0 Laboratory test 12/30/2018 [facility] Troponin I 2.74 Critical <0.04 10 finding [phone] ng/mL high Comprehensive 12/22/2018 [facility] Sodium 136 Normal 135-145 Metabolic Panel [phone] mmol/L Potassium 4.0 mmol/L Normal 3.5-5.0 Chloride 100 mmol/L Low 101-111 Co2 Carbon Dioxide 28 mmol/L Normal 22-32 Anion Gap 8 mmol/L Normal 2-11 Glucose 129 mg/dL High 70-100 Blood Urea Nitrogen 32 mg/dL High 6-24 Creatinine 2.79 mg/dL High 0.51-0.95 BUN/Creatinine Ratio 11.5 Normal 8-20 Calcium 9.5 mg/dL Normal 8.6-10.3 Total Protein 6.8 g/dL Normal 6.4-8.9 Albumin 3.9 g/dL Normal 3.2-5.2 Globulin 2.9 g/dL Normal 2-4 Albumin/Globulin Ratio 1.3 Normal 1-3 Total Bilirubin 0.60 mg/dL Normal 0.2-1.0 Alkaline Phosphatase 193 U/L High 34-104 Alt 43 U/L Normal 7-52 Ast 35 U/L Normal 13-39 Egfr Non- 16.5 >60 Egfr 19.9 >60 11 Laboratory test 12/22/2018 [facility] Erythrocyte Sed 42 mm/Hr High 0-29 finding [phone] Rate Hla-B27 Disease 12/22/2018 [facility] Hla B27 Negative 12 Association [phone] Hla B27 Interp See Comment 13 Laboratory test 12/22/2018 [facility] Hemoglobin A1c 5.6 % Normal 4.0-5.6 14 finding [phone] (Glyco HGB) Laboratory test 12/22/2018 [facility] Magnesium 1.8 Low 1.9-2.7 finding [phone] mg/dL LDL Cholesterol Direct 71 mg/dL 15 TSH (Thyroid Stim Horm) 2.19 mcIU/mL Normal 0.34-5.60 Folate 16.29 ng/mL >3.99 Vitamin B12 > 1450 pg/mL High 180-914 16 Lyme Screen w/ Reflex to WB Negative Negative Xray 12/22/2018 [facility] Xray Chest <pending> [address] [place] [address] [phone] Inr/Protime 12/22/2018 [facility] Inr 0.95 Normal 0.82-1. 17 [phone] CBC Auto 12/22/2018 [facility] White Blood 10.5 10^3/ uL Normal 3.5-10. Diff [phone] Count 8 Red Blood Count 3.95 10^6/uL Normal 3.70-4.87 Hemoglobin 12.2 g/dL Normal 12.0-16.0 Hematocrit 37 % Normal 35-47 Mean Corpuscular Volume 94 fL Normal 80-97 Mean Corpuscular Hemoglobin 31 pg Normal 27-31 Mean Corpuscular HGB Conc 33 g/dL Normal 31-36 Red Cell Distribution Width 14 % Normal 10-15 Platelet Count 230 10^3/uL Normal 150-450 Mean Platelet Volume 8.6 fL Normal 7.4-10.4 Abs Neutrophils 6.7 10^3/uL Normal 1.5-7.7 Abs Lymphocytes 2.7 10^3/uL Normal 1.0-4.8 Abs Monocytes 0.8 10^3/uL Normal 0-0.8 Abs Eosinophils 0.2 10^3/uL Normal 0-0.6 Abs Basophils 0.1 10^3/uL Normal 0-0.2 Abs Nucleated RBC 0.0 10^3/uL Granulocyte % 64.1 % Lymphocyte % 25.5 % Monocyte % 8.1 % Eosinophil % 1.7 % Basophil % 0.6 % Nucleated Red Blood Cells % 0.0 Laboratory test 12/22/2018 [facility] Urine Random 41 mmol/L finding [phone] Sodium Urine Random Creatinine 182.27 mg/dL Urine Drug 12/22/2018 [facility] Urine None Detected None Detect SCR ED & [phone] Amphetamine Pain Clinic Screen Urine Barbiturates Screen None Detected None Detect Urine Benzodiazepine Screen None Detected None Detect Urine Cannabinoids Screen None Detected None Detect Urine Cocaine Screen None Detected None Detect Urine Opiates Screen Presumptive Posi <SEE NOTE> Abnormal None Detect 18 Urine Phencyclidine Screen None Detected None Detect 19 Comp Metabolic 12/22/2018 [facility] Sodium 132 mmol/ L Low 135-145 Panel [phone] Potassium 3.4 mmol/L Low 3.5-5.0 Chloride 99 mmol/L Low 101-111 Co2 Carbon Dioxide 27 mmol/L Normal 22-32 Anion Gap 6 mmol/L Normal 2-11 Glucose 118 mg/dL High 70-100 Blood Urea Nitrogen 32 mg/dL High 6-24 Creatinine 2.56 mg/dL High 0.51-0.95 BUN/Creatinine Ratio 12.5 Normal 8-20 Calcium 9.1 mg/dL Normal 8.6-10.3 Total Protein 7.0 g/dL Normal 6.4-8.9 Albumin 3.7 g/dL Normal 3.2-5.2 Globulin 3.3 g/dL Normal 2-4 Albumin/Globulin Ratio 1.1 Normal 1-3 Total Bilirubin 0.50 mg/dL Normal 0.2-1.0 Alkaline Phosphatase 170 U/L High 34-104 Alt 39 U/L Normal 7-52 Ast 30 U/L Normal 13-39 Egfr Non- 18.2 >60 Egfr 22.0 >60 20 Lipid Profile 12/22/2018 [facility] Triglycerides 88 mg/dL 21 (Trig/Chol/HDL) [phone] Cholesterol 125 mg/dL 22 HDL Cholesterol 47.8 mg/dL 23 LDL Cholesterol 60 mg/dL 24 Laboratory test 12/22/2018 [facility] Troponin I 5.25 Critical <0.04 25 finding [phone] ng/mL high Lactic Acid 1.6 mmol/L Normal 0.5-2.0 26 Urinalysis Profile 12/22/2018 [facility] Urine Color [place] [phone] Urine Appearance Cloudy Urine Specific [place] 1.014 Normal 1.010-1.030 Urine pH 5.0 Normal 5-9 Urine Urobilinogen Positive Abnormal Negative Urine Ketones Negative Negative Urine Protein 1+(30 mg/dL) Abnormal Negative Urine Leukocytes Negative Negative Urine Blood Negative Negative Urine Nitrite Positive Abnormal Negative Urine Bilirubin Negative Negative Urine Glucose Negative Negative Urine White Blood Cell 2+(11-20/hpf) Abnormal Absent Urine Red Blood Cell 3+(>10/hpf) Abnormal Absent Urine Bacteria Absent Absent Urine Squamous Epithelial Cell Present Abnormal Absent Urine Hyaline Casts Present Abnormal Absent CKMB 12/22/2018 [facility] CKMB ng/mL 6.8 ng/mL High 0.6-6.3 [phone] Laboratory test 12/22/2018 [facility] Creatine 75 U/ L Normal 10-223 finding [phone] Kinase Urine Culture And 12/22/2018 [facility] Urine SEE 27 Sensitivities [phone] Culture RESULT BELOW Laboratory test 12/22/2018 [facility] Alcohol < 10 Normal <10 finding [phone] mg/dL TSH (Thyroid Stim Horm) 1.88 mcIU/mL Normal 0.34-5.60 Vitamin B12 > 1450 pg/mL High 180-914 28 Laboratory test 12/22/2018 [facility] Vitamin D 25.3 Normal 20-50 29 finding [phone] Total 25(Oh) ng/mL CBC W/Automated 12/22/2018 [facility] White Blood 10.9 High 3.5-10.8 Diff [phone] Count 10^3/uL Red Blood Count 4.28 10^6/uL Normal 3.70-4.87 Hemoglobin 13.4 g/dL Normal 12.0-16.0 Hematocrit 40 % Normal 35-47 Mean Corpuscular Volume 94 fL Normal 80-97 Mean Corpuscular Hemoglobin 31 pg Normal 27-31 Mean Corpuscular HGB Conc 34 g/dL Normal 31-36 Red Cell Distribution Width 14 % Normal 10-15 Platelet Count 228 10^3/uL Normal 150-450 Mean Platelet Volume 8.8 fL Normal 7.4-10.4 Abs Neutrophils 7.5 10^3/uL Normal 1.5-7.7 Abs Lymphocytes 2.4 10^3/uL Normal 1.0-4.8 Abs Monocytes 0.8 10^3/uL Normal 0-0.8 Abs Eosinophils 0.2 10^3/uL Normal 0-0.6 Abs Basophils 0.1 10^3/uL Normal 0-0.2 Abs Nucleated RBC 0.0 10^3/uL Granulocyte % 68.7 % Lymphocyte % 21.7 % Monocyte % 7.6 % Eosinophil % 1.5 % Basophil % 0.5 % Nucleated Red Blood Cells % 0.0 Laboratory test 12/17/2018 [facility] Hla-B27 Disease <pending> finding [address] [place] [address] [phone] Laboratory test 12/17/2018 [facility] Glycohemoglobin A1c <pending> finding [address] [place] [address] [phone] Laboratory test 12/17/2018 [facility] Magnesium <pending> finding [address] [place] [address] [phone] Laboratory test 12/17/2018 [facility] Sedimentation Rate <pending> finding [address] [place] [address] [phone] Thyroid Stim Hormone <pending> Vitamin D,25-Hydroxy <pending> Ua RFX Micro & Culture 10/16/2018 [facility] Urine Color YELLOW Yellow 30 [address] [place] [address] [phone] Urine Clarity CLEAR Clear Urine Glucose - Dipstick NEGATIVE mg/dL Negative Urine Bilirubin - Dipstick NEGATIVE Negative Urine Ketone NEGATIVE mg/dL Negative Urine Specific [place] 1.020 Normal 1.010-1.030 Urine Blood NEGATIVE Negative Urine PH 6.0 Low 6.5-7.5 Urine Protein - Dipstick NEGATIVE mg/dL Negative Urine Urobilinogen - Dipstick 1.0 E.U./dL Normal 0.2-1.0 Urine Nitrite - Dipstick NEGATIVE Negative Urine Leuk Esterase NEGATIVE Negative Source: URINE, CLEAN CAT <SEE NOTE> 31 Urine Culture 10/16/2018 [facility] Urine Culture MIXED URETHRAL F [address] <SEE NOTE> [place] [address] [phone] Quantity 50,000 - 100,000 <SEE NOTE> 33 1 Result TnIDx:0.09 Called to [id number] at: 18:50:37 by:[id number] Read back by: [id number] Troponin-I testing on Plasma Separator Tubes (PST) has a known false positive rate of 0.20-0.40%. All positive troponins reflex immediately to secondary confirmatory testing. Using the [employer] DxI 800 Access Immunoassay systems, the 99th percentile upper reference limit was demonstrated to be < 0.03 ng/mL. 2 Standard intensity warfarin therapeutic range: 2.0-3.0 High intensity warfarin therapeutic range: 2.5-3.5 3 Because ethnic data is not always readily [...] 15-29 5 Kidney failure <15 (or dialysis) 4 Result TnIDx:0.10 Called to [id number] at: 15:43:47 by:[id number] Read back by: [id number] Troponin-I testing on Plasma Separator Tubes (PST) has a known false positive rate of 0.20-0.40%. All positive troponins reflex immediately to secondary confirmatory testing. Using the [employer] DxI 800 Access Immunoassay systems, the 99th percentile upper reference limit was demonstrated to be < 0.03 ng/mL. 5 Result TnIDx:2.63 Called to [id number] at: 19:31:55 by:[id number] Read back by: [id number] Troponin-I testing on Plasma Separator Tubes (PST) has a known false positive rate of 0.20-0.40%. All positive troponins reflex immediately to secondary confirmatory testing. Using the [employer] DxI 800 Access Immunoassay systems, the 99th percentile upper reference limit was demonstrated to be < 0.03 ng/mL. 6 Because ethnic data is not always readily [...] 15-29 5 Kidney failure <15 (or dialysis) 7 Please note: The following may produce a false positive D Dimer test: - Rheumatoid factor greater than 60 IU/ml - Plasma hemoglobin greater than 0.05 gm/dl - Bilirubin greater than 50 mg/dl - Lipids greater than 1000 mg/dl - FDP greater than 20 ug/ml 8 [facility] Severe Sepsis and Septic Shock Management Bundle Measure requires all lactic acids initially measuring >2.0 mmol/L be repeated. 9 Standard intensity warfarin therapeutic range: 2.0-3.0 High intensity warfarin therapeutic range: 2.5-3.5 10 Result TnIDx:2.74 Called to [id number] at: 22:41:06 by:[id number] Read back by: [id number] Troponin-I testing on Plasma Separator Tubes (PST) has a known false positive rate of 0.20-0.40%. All positive troponins reflex immediately to secondary confirmatory testing. Using the [employer] DxI 800 Access Immunoassay systems, the 99th percentile upper reference limit was demonstrated to be < 0.03 ng/mL. 11 Because ethnic data is not always readily [...] 15-29 5 Kidney failure <15 (or dialysis) 12 REFERENCE VALUE Not Applicable 13 RESULT: HLA-B27 antigen was not detected. ADDITIONAL INFORMATION Method: Flow Cytometry Test Performed by: [place] [address] Risk Engineer: Ezra Chawla M.D. Ph.D.; CLIA# [id number] 14 Therapeutic target for the treatment of diabetes mellitus patients is <7% HBA1C, and in selective patients <6.0%. Please refer to [place] [employer] diabetic care guidelines for further information. 15 Desirable: <100 Near Optimal: 100-129 Borderline High: 130-159 High: 160-189 Very High: >189 16 Normal Range 180 to 914 Indeterminate Range 145 to 180 Deficient Range <145 17 Standard intensity warfarin therapeutic range: 2.0-3.0 High intensity warfarin therapeutic range: 2.5-3.5 18 Presumptive Positive Presumptive positive results are unconfirmed. 19 The urine specimen was tested at the listed cutoffs: Drug class test level (ng/mL) Amphetamines 500 Barbiturates 200 Benzodiazepine metabolites 200 Cocaine metabolites 150 Cannabinoids 50 Opiates 300 Pcp 25 Specimen was received without chain of custody. Results should be used for medical purposes only. 20 Because ethnic data is not always readily [...] 15-29 5 Kidney failure <15 (or dialysis) 21 Desirable: <150 Borderline High: 150-199 High: 200-499 Very High: >500 22 Desirable: <200 Borderline High: 200-239 High: >239 23 Low: <40 Desirable: 40-60 High: >60 24 Desirable: <100 Near Optimal: 100-129 Borderline High: 130-159 High: 160-189 Very High: >189 25 Result TnIDx:5.25 Called to [id number] at: 15:06:21 by:[id number] Read back by: [id number] Troponin-I testing on Plasma Separator Tubes (PST) has a known false positive rate of 0.20-0.40%. All positive troponins reflex immediately to secondary confirmatory testing. Using the [employer] DxI 800 Access Immunoassay systems, the 99th percentile upper reference limit was demonstrated to be < 0.03 ng/mL. 26 [facility] Severe Sepsis and Septic Shock Management Bundle Measure requires all lactic acids initially measuring >2.0 mmol/L be repeated. 27 SEE RESULT BELOW Name: ALEXANDRAAugust : [address]: Romy Moreno MD Acct: [id number] Unit: [id number] AGE: 78 Location: [place] [address] Re12/22/18 SEX: F Status: ADM IN SPEC: [id number] SHERRIE: 12/22/18-[address] [facility] [address]: Sergei Silverman MD REQ: [id number] RECD: 12/22/18152 STATUS: COMP OTHR DR: Martha Bennett MD _ SOURCE: URINE SPDESC: ORDERED: Urine Culture Procedure Result Reported Site Urine Culture Final 12/23/18- 1217 ML No growth of clinically significant organisms * ML - Main Lab . END OF REPORT DEPARTMENT OF PATHOLOGY, [address] [place] [id number] Rojelio Cullen M.D. Director [facility] # [id number] 28 Normal Range 180 to 914 Indeterminate Range 145 to 180 Deficient Range <145 29 Total 25-Hydroxyvitamin D2 and D3 (25-OH-VitD) <10 ng/mL (severe deficiency) 10-19 ng/mL (mild to moderate deficiency) 20-50 ng/mL (optimum levels) 51-80 ng/mL (increased risk of hypercalciuria) >80 ng/mL (toxicity possible) 30 R35.0 31 URINE, CLEAN CATCH 32 MIXED URETHRAL CARMITA 33 50,000 - 100,000 CFU/mL Procedures Date Code Description Status 09/11/2018 55932 Eye Exam New Patient Comprehensive Completed 09/05/2018 75683 Brief Emotional/Behav Assessment W/ Scoring Doc Per Completed Standard Inst 04/01/2017 [id number] Mammogram Completed Medical Devices Description No Information Available Encounters Type Date Location Provider Dx Diagnosis Office Visit 12/17/2018 Family Martha Lobo, M79.606 Pain in leg, 10:00a Stevie Ann MD, PHD unspecified E11.9 Type 2 diabetes mellitus without complications J44.9 Chronic obstructive pulmonary disease, unspecified Z72.0 Tobacco use F32.0 Major depressive disorder, single episode, mild K21.9 Gastro-esophageal reflux disease without esophagitis M54.5 Low back pain Z23 Encounter for immunization E03.9 Hypothyroidism, unspecified I25.10 Athscl heart disease of [place] coronary artery w/o ang pctrs I10 Essential (primary) hypertension Z59.8 Other problems related to housing and economic circumstances M54.6 Pain in thoracic spine R53.83 Other fatigue Z13.21 Encounter for screening for nutritional disorder M19.90 Unspecified osteoarthritis, unspecified site R35.0 Frequency of micturition R30.0 Dysuria I73.9 Peripheral vascular disease, unspecified R01.1 Cardiac murmur, unspecified Office Visit 09/05/2018 4:15p Family Martha Lobo, M54.6 Pain in thoracic Stevie Ann MD, PHD spine R35.0 Frequency of micturition R10.2 Pelvic and perineal pain R53.83 Other fatigue R30.0 Dysuria M19.90 Unspecified osteoarthritis, unspecified site 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, unspecified eyelid H53.8 Other visual disturbances F33.1 Major depressive disorder, recurrent, moderate R03.0 Elevated blood-pressure reading, w/o diagnosis of htn Assessments Date Code Description Provider 01/13/2019 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[place] Martha Bennett MD, 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 01/13/2019 E11.9 Type 2 diabetes mellitus without Martha Bennett MD, PHD complications 01/13/2019 M54.6 Pain in thoracic spine Martha Bennett MD, PHD 01/13/2019 M54.5 Low back pain Martha Bennett MD, PHD 01/13/2019 F32.0 Major depressive disorder, single Martha Bennett MD, PHD episode, mild 01/13/2019 R05 Cough Martha Bennett MD, PHD 01/13/2019 R53.83 Other fatigue Martha Bennett MD, PHD 01/13/2019 I95.89 Other hypotension Martha Bennett MD, PHD 01/13/2019 K59.03 Drug induced constipation Martha Bennett MD, PHD 12/17/2018 M79.606 Pain in leg, unspecified Martha [...] back pain Martha Bennett MD, PHD 12/17/2018 Z23 Encounter for immunization Martha Bennett MD, PHD 12/17/2018 E03.9 Hypothyroidism, unspecified Martha Bennett MD, PHD 12/17/2018 I25.10 Atherosclerotic heart disease of [place] Martha Bennett MD, 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 12/17/2018 I10 Essential (primary) hypertension Martha Bennett MD, PHD 12/17/2018 Z59.8 Other problems related to housing and Martha Bennett MD, PHD economic circumstances 12/17/2018 M54.6 Pain in thoracic spine Martha Bennett MD, PHD 12/17/2018 R53.83 Other fatigue Martha Bennett MD, PHD 12/17/2018 Z13.21 Encounter [...] Martha Bennett MD, PHD diagnosis of htn Plan of Treatment Future Appointment(s):03/18/2019 10:30 am - Martha Bennett MD, PHD at [facility] Main Functional Status Functional Condition Comment Date Status Independent with all ADL's Active Mental Status Description No Information Available Referrals Refer to Reason for Referral Status Appt Date Henny Strauss M.D. Chronic frequency and urgency, UA last Closed 2018 checked normal. Has tried pyridium and anti-spasmodic. Chronic pain problems, Multiple old compression fractures in back, gait and balance difficulty. ? Bladder spasm vs neurologic vs prolapse vs neoplasm due to high tobacco history eval please. [address], [facility] [address] [place] [address] [phone] Toño Win MD Can't see to read, can't read pill bottles. Store Closed readers not helping any more. Eyes swollen every morning. Sometimes flashing lights and floaters. Sometimes absolutely no sight in left eye, only using right eye. [address] [place] [address] [phone]
--- NOTE | 2019-01-25 23:07 | ED ---
Shortness of Breath - HPI Summary HPI Summary: Pt is a 78 y/o F presenting to the ED with a chief complaint of shortness of breath initially onset around 1730. She states it feels like she cannot take a deep breath, and notes that she hasnt been sleeping. She reports fatigue. She denies CP, fever, and cough. She notes recent [place] w/ stent placement, and states this feels much different, especially since there is no pain. - History of Current Complaint Chief Complaint: EDShortnessOfBreath Time Seen by Provider: 01/25/19 23:04 Hx Obtained From: Patient Onset/Duration: Sudden Onset, Lasting Hours, Still Present Timing: Constant Current Severity: Moderate Dyspnea At: Rest Aggravating Factors: Nothing Alleviating Factors: Nothing Associated Signs & Symptoms: Negative - Allergy/Home Medications Allergies/Adverse Reactions: Allergies Allergy/AdvReac Type Severity Reaction Status Date / Time oxycodone [From OxyContin] Allergy Hallucinati Verified 12/24/18 16:20 ons Sulfa (Sulfonamide Allergy Hives Verified 12/30/18 18:50 Antibiotics) PMH/Surg Hx/FS Hx/Imm Hx Previously Healthy: Yes Endocrine/Hematology History: Reports: Hx Diabetes - type 2 dm, Hx Thyroid Disease - hypothyroid, Hx Anemia Denies: Hx Systemic Lupus Erythematosus Cardiovascular History: Reports: Hx Aneurysm - AAA, Hx Angina, Hx Coronary Artery Disease, Hx Hypercholesterolemia, Hx Hypertension, Hx Myocardial Infarction, Hx Rheumatic Fever, Hx Syncope - "Some times", Hx Valvular Heart Disease - severe mitral stenosis on ECHO 11/2018, Other Cardiovascular Problems/ Disorders - heart murmer since 16 years old Denies: Hx Congestive Heart Failure, Hx Pacemaker/ICD Respiratory History: Reports: Hx Chronic Obstructive Pulmonary Disease (COPD), Hx Seasonal Allergies Denies: Hx Asthma, Other Respiratory Problems/Disorders GI History: Reports: Hx Gastroesophageal Reflux Disease, Hx Hiatal Hernia, Other GI Disorders - hiatal hernia Denies: Hx Ulcer History: Reports: Hx Renal Disease - hx of cyst removal, Other Problems/ Disorders - cysts removed from kidney Denies: Hx Dialysis Musculoskeletal History: Reports: Hx Arthritis - BILATERAL KNEES, BACK, BILATERAL HANDS, Hx Back Problems, Hx Osteoporosis Denies: Hx Rheumatoid Arthritis Sensory History: Reports: Hx Contacts or Glasses, Hx Hearing Problem - [place] Denies: Hx Deafness, Hx Hearing Aid Opthamlomology History: Reports: Hx Contacts or Glasses Neurological History: Reports: Hx Dementia, Hx Headaches, Hx Migraine, Hx Seizures - x1, Other Neuro Impairments/Disorders - COMPRESSION FX T9,T10,T11 AND L1 Psychiatric History: Reports: Hx Anxiety, Hx Depression Denies: Hx Panic Disorder, Hx Substance Abuse - Cancer History Cancer Type, Location and Year: MELANOMA Hx Chemotherapy: No Hx Radiation Therapy: No Hx Palliative Cancer Treatment: No - Surgical History Surgery Procedure, Year, and Place: CATARACTS; PARTIAL THYROIDECTOMY; PAVAN; HYSTERECTOMY; T&A; APPENDECTOMY; CYST REMOVED FROM KIDNEY; BACK SURGERY; MELANOMA REMOVED FROM LEFT ARM; NASAL SURGERY; three cardiac stents placed after [place] Hx Anesthesia Reactions: No - Immunization History Date of Tetanus Vaccine: Unk Date of Influenza Vaccine: 01/09/13 Infectious Disease History: No Infectious Disease History: Reports: Hx Shingles Denies: Hx Clostridium Difficile, Hx Hepatitis, Hx Human Immunodeficiency Virus (HIV), Hx of Known/Suspected MRSA, History Other Infectious Disease, Traveled Outside the [place] in Last 30 Days - Family History Known Family History: Positive: Cardiac Disease - CHF, Other - CANCER - Social History Alcohol Use: None Hx Substance Use: No Substance Use Type: Reports: None Hx Tobacco Use: Yes Smoking Status (MU): Former Smoker Type: Cigarettes Amount Used/How Often: 1/2 PPD Length of Time of Smoking/Using Tobacco: 60 years Have You Smoked in the Last Year: Yes Review of Systems - ROS Summary Review of Systems Summary: Home Medications Medication Instructions Recorded Confirmed Type Quinapril (NF) [Accupril (NF)] 10 mg PO DAILY 08/12/18 01/06/19 History celeCOXIB CAP* [Celebrex CAP*] 100 mg PO BID PRN 08/12/18 01/06/19 History Albuterol 2.5MG/3ML (0.083%)* 2.5 mg INH Q6H PRN 12/30/18 01/06/19 History [Ventolin 2.5 MG/3 ML NEB.JORGE*] Aspirin EC TAB* [Ecotrin EC Low 81 mg PO DAILY 12/30/18 01/06/19 History Dose 81 MG*] Gabapentin CAP(*) [Neurontin 100 100 mg PO TID 12/30/18 01/06/19 History mg CAP(*)] Hydrochlorothiazide TAB* 25 mg PO DAILY 12/30/18 01/06/19 History [Hydrodiuril TAB*] Hydrocodone Bitartrate [Zohydro ER] 15 mg PO BID 12/30/18 01/06/19 History Ipratropium Br (Nf)0.03% Nasal 2 spray BOTH NARES DAILY 12/30/18 01/06/19 History [Ipratropium [place]] Levothyroxine TAB* [Synthroid TAB*] 50 mcg PO DAILY 12/30/18 01/06/19 History Metoprolol Tartrate TAB* 12.5 mg PO BID 12/30/18 01/06/19 History [Lopressor TAB*] Oxycodone IR 10 MG(NF) 15 mg PO Q4HR PRN 12/30/18 01/06/19 History Ticagrelor* [Brilinta 90 MG*] 90 mg PO BID 12/30/18 01/06/19 History Baclofen TAB* [Lioresal TAB*] 5 mg PO BEDTIME PRN 01/06/19 01/06/19 History Cyanocobalamin/Cobamamide [Vitamin 1 tab SL DAILY 01/06/19 01/06/19 History B-12 5,000 Mcg Tab Sl] Fluticas/Salmet 115/21 HFA(NF) 1 puff INH DAILY 01/06/19 01/06/19 History [Advair HFA 115/21 (NF)] Omeprazole CAP (NF) [Prilosec CAP* 20 mg PO DAILY 01/06/19 01/06/19 History 20 MG] Oxybutynin XL TAB* [Ditropan XL 10 mg PO DAILY 01/06/19 01/06/19 History TAB*] Rosuvastatin (NF) [Crestor (NF)] 40 mg PO DAILY 01/06/19 01/06/19 History traZODone TAB* [Desyrel TAB*] 100 mg PO BEDTIME PRN 01/06/19 01/06/19 History Isosorbide Mononitrate ER TAB* 30 mg PO DAILY #30 tab.er 01/07/19 Rx [Imdur ER TAB*] Venlafaxine EXT RELEASE CAP* 150 mg PO DAILY cap.sr 01/07/19 Rx [Effexor Xr CAP*] Positive: Fatigue. Negative: Fever Negative: Chest Pain Positive: Shortness Of Breath. Negative: Cough All Other Systems Reviewed And Are Negative: Yes Physical Exam - Summary Physical Exam Summary: General: Well-developed, Well-nourished elderly female. No acute distress. HEENT: Normocephalic, Atraumatic. Eyes: Conjuctiva normal, PERRL. Ears: TMs within normal limits. Nares: (-) discharge, (-) erythema. Oropharynx: Clear, mucous membranes moist, (-) exudates. Neck: Soft, FROM, (-) lymphadenopathy, (-) thyromegaly, (-) JVD. Cardiovascular: Normal sinus rhythm, (-) murmur. Lungs: Clear to auscultation bilaterally (-) wheezes, (-) rales, (-) rhonchi. Abdomen: Soft, non-tender, non-distended, (-) organomegaly, normal bowel sounds. Back: (-) CVA tenderness Extremities: No edema. Skin: Warm, dry, (-) rash. Neuro: Alert and oriented x3, no focal deficits. Psychiatric: Mood normal, affect normal. Triage Information Reviewed: Yes Vital Signs On Initial Exam: Initial Vitals Temp Pulse Resp BP Pulse Ox 97.7 F 62 20 180/90 97 01/25/19 21:55 01/25/19 21:55 01/25/19 21:55 01/25/19 21:55 01/25/19 21:55 Vital Signs Reviewed: Yes Procedures - Sedation Patient Received Moderate/Deep Sedation with Procedure: No Diagnostics - Vital Signs Vital Signs Temp Pulse Resp BP Pulse Ox 01/25/19 21:55 97.7 F 62 20 180/90 97 - Laboratory Result Diagrams: 01/25/19 23:23 01/25/19 23:23 Lab Statement: Any lab studies that have been ordered have been reviewed, and results considered in the medical decision making process. - Radiology CXR Radiology Interpretation Completed By: ED Physician Summary of Radiographic Findings: No infiltrate. No pleural effusion. Pending official radiology report. - EKG 215 Cardiac Rate: Bradycardia - 58bpm EKG Rhythm: Sinus Bradycardia ST Segment: Normal Ectopy: None Summary of EKG Findings: EKG at 2156 reveals sinus bradycardia with rate of 58 BPM, no acute changes, no ischemic changes. This EKG was reviewed and interpreted by Dr. Higgins. Re-Evaluation - Re-Evaluation 1st re-eval Re-Evaluation Time: 23:40 Change: Unchanged Comment: I performed a medical record review within the pts chart. On 12/24, the pt presented to the ED with chest pain and was sent to [facility] for an NSTEMI and possible CABG. She had 3 stents placed. On 12/30, she came to the ED with chest pain, and was transferred to [facility] where she had a repeat catheterization. Her stents were patent. On 01/05, the pt came back to the ED, had a troponin of 0.10, and was admitted overnight then discharged. 2nd re-eval Re-Evaluation Time: 02:36 Change: Improved Comment: I have discussed results with the patient and her sx are resolved. Discussed symptoms that warrant immediate return to ED. Course/Dx - Course Course Of Treatment: Pt is a 78 y/o F presenting to the ED with a chief complaint of shortness of breath initially onset around 1730. She states it feels like she cannot take a deep breath, and notes that she hasnt been sleeping. She reports fatigue. She denies CP, fever, and cough. She notes recent [place] w/ stent placement, and states this feels much different, especially since there is no pain. Pt's physical exam is nml. CXR shows: No infiltrate. No pleural effusion. Pending official radiology report. I performed a medical record review within the pts chart. On 12/24, the pt presented to the ED with chest pain and was sent to [facility] for an NSTEMI and possible CABG. She had 3 stents placed. On 12/30, she came to the ED with chest pain, and was transferred to [facility] where she had a repeat catheterization. Her stents were patent. On 01/05, the pt came back to the ED, had a troponin of 0.10, and was admitted overnight then discharged. Pts Potassium is 2.6, BUN/Creatinine ratio is 26.2, AST is 12, and BNP is 243. EKG at 2156 reveals sinus bradycardia with rate of 58 BPM, no acute changes, no ischemic changes. This EKG was reviewed and interpreted by Dr. Higgins. Pt's 2nd troponin was 0.03. As of 235, I have discussed results with the patient and her sx are resolved. Discussed symptoms that warrant immediate return to ED. Pt will be d/c'ed with dx of shortness of breath and hypokalemia. She is instructed to follow up with her PCP in the morning for another blood draw. - Diagnoses Provider Diagnoses: Shortness of breath, Hypokalemia Discharge ED - Sign-Out/Discharge Documenting (check all that apply): Patient Departure - Discharge Plan Condition: Stable Disposition: HOME Prescriptions: Potassium Chloride* LIQUID [Potassium Chloride LIQUID] 20 meq PO TID 10 Days # 30 liquid Potassium Chloride* LIQUID [Potassium Chloride LIQUID] 20 meq PO TID 10 Days # 30 liquid Patient Education Materials: Dyspnea (ED) Referrals: Martha Bennett MD [Primary Care Provider] - Additional Instructions: Call your primary care provider in the morning to follow up with them for another blood draw as soon as possible. Return to the emergency department with any new or worsening symptoms. - Billing Disposition and Condition Condition: STABLE Disposition: Home - Attestation Statements Document Initiated by Scribe: Yes Documenting Scribe: Елена Tai Provider For Whom Helga is Documenting (Include Credential): Anne Marie Higgins MD. Scribe Attestation: Елена Bernal, scribed for Anne Marie Higgins MD. on 01/26/19 at 0507. Scribe Documentation Reviewed: Yes Provider Attestation: The documentation as recorded by the scribЕлена dillon accurately reflects the service I personally performed and the decisions made by , Anne Marie Higgins MD. Status of Scribe Document: Viewed
[2019-01-25 23:30] LABS: ABS Eosinophils 0.3 10^3/ul (0-0.6); ABS Lymphocytes 2.7 10^3/ul (1.0-4.8); ABS Monocytes 0.7 10^3/ul (0-0.8); ABS Neutrophils 3.5 10^3/ul (1.5-7.7); Eosinophil % 3.5 %; Hematocrit 35 % (35-47); Hemoglobin 11.6 g/dL (12.0-16.0); Lymphocyte % 37.6 %; Mean Corpuscular HGB Conc 33 g/dL (31-36); Mean Corpuscular Hemoglobin 30 pg (27-31); Mean Corpuscular Volume 91 fL (80-97); Nucleated Red Blood Cells % 0.1; Platelet Count 258 10^3/uL (150-450); Red Blood Count 3.84 10^6 /uL (3.70-4.87); Red Cell Distribution Width 14 % (10-15); White Blood Count 7.3 10^3/uL (3.5-10.8)
[2019-01-25 23:36] LABS: INR 0.97 (0.82-1.09)
[2019-01-25 23:58] LABS: Albumin 3.4 g/dL (3.2-5.2); Albumin/Globulin Ratio 1.1 (1-3); BUN/Creatinine Ratio 26.2 (8-20); Calcium 9.1 mg/dL (8.6-10.3); EGFR African American 79.6 (>60); EGFR Non-African American 65.7 (>60); Globulin 3.1 g/dL (2-4); Total Bilirubin 0.3 mg/dL (0.2-1.0); Total Protein 6.5 g/dL (6.4-8.9)
[2019-01-26 00:01] LABS: Potassium 2.6 mmol/L (3.5-5.0); Troponin I 0.03 ng/mL (<0.04)
[2019-01-26] MEDS ORDERED: KCL 10 MEQ/50 ML IVPREMIX* 10 MEQ/50 ML BAG IV SCH (02:00)
[2019-01-26] MEDS ORDERED: Potassium Chloride* LIQUID 20 MEQ/15 ML UDC PO ONE (02:30)
[2019-01-26 03:52] VITALS: BP 183/70
== END 2019-01-26 03:25 | disposition home or self-care (01) ==
LOC: ED 21:52
DX: R06.02 Shortness of breath (principal); E87.6 Hypokalemia; R00.1 Bradycardia, unspecified; R94.31 Abnormal electrocardiogram [ECG] [EKG]; I10 Essential (primary) hypertension; I25.2 Old myocardial infarction; I25.10 Atherosclerotic heart disease of native coronary artery without angina pectoris; E11.9 Type 2 diabetes mellitus without complications; E03.9 Hypothyroidism, unspecified; E78.00 Pure hypercholesterolemia, unspecified; D64.9 Anemia, unspecified; I71.4 Abdominal aortic aneurysm, without rupture; K21.9 Gastro-esophageal reflux disease without esophagitis; K44.9 Diaphragmatic hernia without obstruction or gangrene; R01.1 Cardiac murmur, unspecified; J44.9 Chronic obstructive pulmonary disease, unspecified; M13.862 Other specified arthritis, left knee; M13.861 Other specified arthritis, right knee; M46.90 Unspecified inflammatory spondylopathy, site unspecified; M13.842 Other specified arthritis, left hand; M13.841 Other specified arthritis, right hand; F03.90 Unspecified dementia, unspecified severity, without behavioral disturbance, psychotic disturbance, mood disturbance, and anxiety; Z95.5 Presence of coronary angioplasty implant and graft; Z88.2 Allergy status to sulfonamides; Z88.5 Allergy status to narcotic agent; F41.9 Anxiety disorder, unspecified; F32.9 Major depressive disorder, single episode, unspecified; Z85.820 Personal history of malignant melanoma of skin; Z87.891 Personal history of nicotine dependence; Z79.82 Long term (current) use of aspirin; Z79.899 Other long term (current) drug therapy; Z79.890 Hormone replacement therapy; Z79.01 Long term (current) use of anticoagulants
CPT/HCPCS: 36415; 71045; 80053; 83605; 83880; 84484; 85025; 85610; 93005; 96365; 96366; 99285; A9270-GY; J3480

== ENCOUNTER 2019-04-26 13:28 | Emergency (ER) | payer MEDICARE, MEDICAID ==
--- OUTSIDE RECORDS SUMMARY | 2019-04-26 13:34 | XMS REPORT ---
:1940 Author Organization [facility] Care Team Providers Name Role Phone Unavailable Unavailable Unavailable Problems Condition Condition Condition Status Onset Resolution Last Treating Comments Name Details Category Date Date Treatment Clinician Date Pain frequent Pain Mgmt Active Yaz pain 10-30 (Jacqueline) 10:45: Ahn [id number] Respiratory lung sounds Respirator Active Yaz deficit y 10-30 (Jacqueline) 10:45: [id number] Respiratory dyspnea Respirator Active Yaz present y 10-30 (Jacqueline) 10:45: [id number] Respiratory oxygen Respirator Active Quality treatments y 10-30 Realtime7 in home 10:45: 00 Endo/Guilherme diabetic Endo/Guilherme Active Yaz foot care 10-30 (Jacqueline) 10:45: [id number] Endo/Guilherme anti-coagul Endo/Guilherme Active Yaz ation 10-30 (Jacqueline) therapy 10:45: [id number] Integument skin Integument Active Yaz integrity 10-30 (Jacqueline) risk 10:45: [id number] Elimination urinary Eliminatio Active Yaz incontinenc n 10-30 (Jacqueline) e 10:45: [id number] Neuro confusion Neuro/Emot Active Yaz present ion 10-30 (Jacqueline) 10:45: [id number] Neuro anxiety Neuro/Emot Active Yaz present ion 10-30 (Jacqueline) 10:45: [id number] Neuro depressive Neuro/Emot Active Yaz feelings ion 10-30 (Jacqueline) present 10:45: [id number] Neuro memory Neuro/Emot Active Yaz deficit ion 10-30 (Jacqueline) needing 10:45: Ahn supervision 00 [id number] Neuro impaired Neuro/Emot Active Quality decision-ma ion 10-30 juan 10:45: 00 Activity ADL Activity Active Yaz assistance 10-30 (Jacqueline) required 10:45: Ahn 00 [id number] Safety fall risk Safety Active Yaz factor 10-30 (Jacqueline) present 10:45: Ahn [id number] Safety risk for Safety Active Yaz hospitaliza 10-30 (Jacqueline) tion 10:45: Ahn [id number] Safety can be left Safety Active Yaz alone for 10-30 (Jacqueline) only short 10:45: Ahn periods [id number] Safety structural Safety Active Yaz barriers 10-30 (Jacqueline) present 10:45: Ahn [id number] Medication oral med Meds Active Yaz assistance 10-30 (Jacqueline) required 10:45: Ahn [id number] Medication potential Meds Active Yaz clinically 10-30 (Jacqueline) significant 10:45: Ahn medication [id number] issue Bed transfer PT/OT: Bed Active Jamil Mobility/Tr deficit: Mobility/T 10-30 [place] [facility] 12:20: [id number] 00 OT: Self self-care OT: Active Jamil Care deficit Self-Care 10-30 Melodie 12:20: [id number] 00 Pain knowledge/s Pain Mgmt Active Nadine kill 10-31 [place] deficit: pt 11:20: [id number] 00 Elimination urinary Eliminatio Active Nadine frequency n 10-31 [place] 11:20: [id number] 00 Sensory impaired Sensory Active Quality verbal 11-04 Realtime communicati 14:09: on 47 Sensory impaired Sensory Active Quality hearing 11-04 Realtime 14:09: 47 Allergies, Adverse Reactions, Alerts Allergy Allergy Status Severity Reaction(s) Onset Inactive Treating Comments Name Type Date Date Clinician Unknown None Active Unknown None Unknown No Known Allergies For This Patient Medications Ordered Filled Start Stop Current Ordering Indication Dosage Frequency Signature Comments Components Medication Medication Date Date Medication? Clinician (SIG) Name Name acetaminoph acetaminoph 2018-0 2018- No Daljit Unknown Unknown en ER 650 en ER 650 10-30 ,Olivia mg mg Maggie tablet,exte tablet,exte nded nded release release Advair Advair 2017- No Daljit Unknown Unknown Diskus 250 Diskus 250 10-30 Olivia JONES mcg-50 mcg-50 Maggie mcg/dose mcg/dose powder for powder for inhalation inhalation albuterol albuterol 2017- No Daljit Unknown Unknown sulfate sulfate 10-30 ,Olivia concentrate concentrate Maggie 5 mg/mL(0.5 5 mg/mL(0.5 %) solution %) solution for for nebulizatio nebulizatio n n Aspirin Low Aspirin Low 2017- No Daljit Unknown Unknown Dose 81 mg Dose 81 mg 10-30 ,Olivia tablet,satish tablet,satish Maggie yed release yed release buPROPion buPROPion 2017- No Daljit Unknown Unknown HCl XL 300 HCl XL 300 10-30 ,Olivia mg 24 hr mg 24 hr Maggie tablet, tablet, extended extended release release calcium calcium 2017- No Daljit Unknown Unknown citrate 200 citrate 200 10-30 ,Olivia mg (950 mg) mg (950 mg) Maggie tablet tablet cholecalcif cholecalcif 2017- No Daljit Unknown Unknown mindy mindy 10-30 Olivia JONES (vitamin (vitamin Maggie D3) 1,000 D3) 1,000 unit (25 unit (25 mcg) tablet mcg) tablet gabapentin gabapentin 2017- No Daljit Unknown Unknown 100 mg 100 mg 10-30 ,Olivia capsule capsule Maggie levothyroxi levothyroxi 2017- No Daljit Unknown Unknown ne 88 mcg ne 88 mcg 10-30 ,Olivia capsule capsule Maggie lisinopril lisinopril 2017- No Daljit Unknown Unknown 5 mg tablet 5 mg tablet 10-30 ,Olivia Serrano NexIUM 40 NexIUM 40 2017- No Daljit Unknown Unknown mg mg 10-30 ,Olivia capsule,del capsule,del Maggie ayed ayed release release venlafaxine venlafaxine 2017- No Daljit Unknown Unknown ER 150 mg ER 150 mg 10-30 Olivia JONES tablet,exte tablet,exte Maggie nded nded release 24 release 24 hr hr cyanocobala cyanocobala 2017- No Daljit Unknown Unknown min min 10-30 Olivia JONES (vitamin (vitamin Maggie B-12) 1,000 B-12) 1,000 mcg capsule mcg capsule multivitami multivitami 2017- No Daljit Unknown Unknown n capsule n capsule 10-30 Olivia JONES raNITIdine raNITIdine 2017- No Daljit Unknown Unknown 300 mg 300 mg 10-30 Olivia JONES capsule capsule Maggie Oxygen Oxygen 2017- No Lopez Unknown Unknown 10-30 Jamel JONES Oxygen Oxygen 2017- No Daljit Unknown Unknown 10-30 Olivia JONES Vital Signs Vital Name Observation Time Observation Value Comments SYSTOLIC mm[Hg] 2017-10-31 18:01:02 132 mm[Hg] mm[Hg] Method: Sit SYSTOLIC mm[Hg] 2017-11-02 18:01:04 108 mm[Hg] mm[Hg] Method: Stand DIASTOLIC mm[Hg] 2017-10-31 18:01:02 70 mm[Hg] mm[Hg] Method: Sit DIASTOLIC mm[Hg] 2017-11-02 18:01:04 60 mm[Hg] mm[Hg] Method: Stand PULSE 2017-10-31 18:01:02 63 /min /min RESP RATE 2017-10-31 18:01:02 18 /min /min TEMP 2017-10-31 18:01:02 98 [degF] Procedures This patient has no known procedures. Results This patient has no known results.
--- OUTSIDE RECORDS SUMMARY | 2019-04-26 13:34 | XMS REPORT | Summary of Care ---
:1940 Author Organization [facility] Address 1 [facility] [place] [address] Care Team Providers Name Role Phone Martha Bennett MD Primary Care Provider Reason for Visit Reason Comments Follow Up Pt. in for a 1 month follow up on medication and Shortness of Breath / Pt. state no improvement with Medicaiton Changes. Increase dizziness as well. Encounter Details Date Type Department Care Team Description 03/30/2019 Office Visit Joselin Mohamud PA Dizziness and Cardiology 1 [facility] [address] [facility] [place] [address] [place] [id number] Allergies Active Allergy Reactions Severity Noted Date Comments Oxycontin Unknown Reaction 01/27/2018 Sulfa Antibiotics Rash 06/16/2012 Skin burning and itching documented as of this encounter (statuses as of 03/30/2019) Medications Medication Sig Dispensed Refills Start Date End Date Status venlafaxine (EFFEXOR Take 150 mg 0 Active XR) 150 MG Oral by mouth CAPSULE SR 24 HR EVERY TWENTY-FOUR HOURS. albuterol Take 2.5 mg 0 Active (PROVENTIL, by VENTOLIN) (2.5 inhalation. MG/3ML) 0.083% Inhalation Nebu Soln ipratropium [place] 2 0 Active (ATROVENT) 0.03 % Sprays in Nasal Solution nose. oxycodone, immediate Take 15 mg by 0 Active release, (OXY-IR) 15 mouth EVERY MG Oral Tab FOUR HOURS NEEDED. aspirin 81 MG Oral Take 1 Tab by 30 Tab 0 12/28/2018 Active Tab EC mouth DAILY. Omeprazole delayed Take 20 mg by 0 Active rel cap 20 MG Oral mouth DAILY. CAPSULE DELAYED RELEASE TRAZODONE HCL PO Take 100 mg 0 Active by mouth EVERY BEDTIME NEEDED. oxybutynin Take 5 mg by 0 Active (DITROPAN) 5 MG Oral mouth TWICE Tab DAILY. levothyroxine Take 1 Tab by 30 Tab 0 01/02/2019 Active (SYNTHROID) 75 MCG mouth BEFORE Oral Tab BREAKFAST. Rosuvastatin Calcium TAKE 1 TABLET 90 Tab 3 01/02/2019 Active (CRESTOR) 40 MG Oral BY MOUTH Tab DAILY Cyanocobalamin Take 1 Tab by 0 Active (B-12) 500 MCG Oral mouth DAILY. Tab Docusate Sodium 100 Take 1 Tab by 0 Active MG Oral Tab mouth TWICE DAILY. ondansetron (ZOFRAN) Take 4 mg by 0 Active 4 MG Oral Tab mouth EVERY EIGHT HOURS NEEDED. celeCOXIB (CELEBREX) Take 100 mg 0 Active 100 MG Oral Cap by mouth TWICE DAILY. Melatonin 10 MG Oral Take 1 Cap by 0 Active Cap mouth EVERY BEDTIME. Baclofen 5 MG Oral Take 1 Tab by 0 Active Tab mouth EVERY BEDTIME NEEDED. methocarbamol Take 500 mg 0 Active (ROBAXIN) 500 MG by mouth Oral Tab EVERY BEDTIME. isosorbide Take 1 Tab by 90 Tab 3 02/25/2019 Active MONOnitrate (IMDUR) mouth DAILY. 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 TabIndications: Rheumatic mitral stenosis metoprolol Take 1 Tab by 180 Tab 3 02/25/2019 Active (LOPRESSOR) 25 MG mouth TWICE Oral TabIndications: DAILY. Rheumatic mitral stenosis clopidogrel (PLAVIX) Take 1 Tab by 1 Tab 0 03/30/2019 03/31/2019 Active 300 MG Oral Tab mouth ONE TIME for 1 dose. clopidogrel (PLAVIX) Take 1 Tab by 90 Tab 3 03/30/2019 Active 75 MG Oral Tab mouth DAILY. ticagrelor Take 1 Tab by 60 Tab 3 12/27/2018 03/30/2019 Discontinued (BRILINTA) 90 MG mouth TWICE Oral Tab DAILY. documented as of this encounter (statuses as of 03/30/2019) Active Problems Problem Noted Date Mixed hyperlipidemia 12/25/2018 NSTEMI (non-ST elevated myocardial infarction) 12/25/2018 Hypertension 12/25/2018 Dementia 12/25/2018 Depression 12/25/2018 GERD (gastroesophageal reflux disease) 12/25/2018 COPD (chronic obstructive pulmonary disease) 12/25/2018 Coronary artery disease 12/25/2018 Spondylosis without myelopathy or radiculopathy, lumbar region 04/23/2018 Trochanteric bursitis of both hips 03/07/2018 Overview: Added automatically from request for surgery [id number] Spondylosis of lumbar region without myelopathy or radiculopathy 01/27/2018 Spondylosis of cervical region without myelopathy or radiculopathy 01/27/2018 Other and combined forms of senile cataract 01/09/2005 documented as of this encounter (statuses as of 03/30/2019) Social History Tobacco Use Types Packs/Day Years [...] Sign Reading Time Taken Comments Blood Pressure 132/58 03/30/2019 9:58 AM EST Pulse 48 03/30/2019 9:58 AM EST Temperature - - Respiratory Rate - - Oxygen Saturation 99% 03/30/2019 9:58 AM EST Inhaled Oxygen Concentration - - Weight 57.6 kg (127 lb) 03/30/2019 9:58 AM EST Height 162.6 cm (5' 4") 03/30/2019 9:58 AM EST Body Mass Index 21.8 03/30/2019 9:58 AM EST documented in this encounter Patient Instructions Patient InstructionsJoselin Man PA - 03/30/2019 10:40 AM EST- Get your bloodwork checked today. - I will speak to Dr. Garcia and let you know what he thinks in terms of medication changes - If I don't reach you, I will reach out to your daughter [phone] documented in this encounter Progress Notes Joselin Man PA - 03/30/2019 10:40 AM EST [facility] Patient: Shu Nagy Date of : 1940 Date of Service: 03/30/2019 REFERRING PRACTITIONER: Eric Garcia PRIMARY CARE PROVIDER: Martha Bennett Chief Complaint: Chief Complaint Patient presents with Follow Up Pt. in for a 1 month follow up on medication and Shortness of Breath/ Pt. state no improvement with Medicaiton Changes. Increase dizziness as well. History of Present Illness: We had the pleasure of seeing Suh Nagy today. She is a 78-y.o. femalewith a PMH of HTN, hyperlipidemia, COPD, chronic back pain, mild dementia, DM, and rheumatic mitral stenosis/regurgitation as well as mild aortic stenosis. She also has multivessel CAD and had NSTEMI 11/2018. She was evaluated by CTS but d/t her high surgical risk she underwent PCI with HITESH to the distal RCA, D1, and mLAD on 12/25/2018, who presents today for follow up. She is accompanied today but her daughter, Chris. Since we saw her last she reports no improvement in her symptoms, and if anything feels slightly worse. Still can only walk about 10-20 feet before needing to stop because of shortness of breath. She feels these symptoms have significantly worsened since her PCI. She has chronic balance issues, dizziness and numbness in her legs. She feels like the numbness is extending to her toes. Feels her dizziness is slightly increasing. Patient denies fever, febrile illness. POSITIVE fatigue. NEUROLOGIC: Denies transient ischemic attack or cerebrovascular accident signs or symptoms. Denies syncope or presyncopal episodes. CARDIOVASCULAR: denies chest pain, denies palpations, denies lower extremity edema. RESPITATORY: POSITIVE shortness of breath, chronic 3 pillow orthopnea. GASTROINTESTINAL: Denies melena. GENITOURINARY: Denies hematura or nocturia. MUSCULOSKELETAL: POSITIVE lower extremity numbness. All other remaining systems are negative. Except that stated above in history of present illness Cardiac Studies: EKG Today (I personally reviewed): Sinus bradycardia @ 48 bpm, MS 202 Cardiac Studies: TTE at [facility] 01/07/2019: -LVEF 55-60%. -Mild-moderate LVH -Moderate MS (MVA by PHT 1.5cm2 and by continuity 1.3cm2) -Mild Limited TTE 01/02/2019: FINAL IMPRESSION: Limited study. Global systolic function is normal with estimated LV EF 60-65 %. No regional wall motion abnormalities. No pericardial effusion. Left Heart Cath 01/01/2019: Patent first diagonal, mid LAD and distal RCA stents. Non-ST elevation MT with no clear culprit identified Patent first [...] mean gradient of 7 - 8 mmHg withmild to moderate regurgitation as described at systolic BP of 150 mmHg and moderate to severe regurgitation at systolic BP of 210 mmHg. Mitral valve area by 3D derived 2D planimetry is 1.5 cm2. Pham score of 7 ( Mobility:4, Leaflet thickening :1, Calcification: 1, subvalvular thickenin) Global systolic function is normal, with an estimated ejection fraction of 55- 60 %. The aortic valve is tricuspid, mildly calcified, with restricted mobility. Mild aortic stenosis. 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 Trochanteric bursitis of both hips Spondylosis without myelopathy or radiculopathy, lumbar region Mixed hyperlipidemia NSTEMI (non-ST elevated myocardial infarction) ([facility]) Hypertension Dementia (HCC) Depression GERD (gastroesophageal reflux disease) COPD (chronic obstructive pulmonary disease) ([facility]) Coronary artery disease Past Medical History: Diagnosis Date Allergic rhinitis Chronic pharyngitis Diabetes mellitus (HCC) GERD (gastroesophageal reflux disease) Headache disorder NSTEMI (non-ST elevated myocardial infarction) ([facility]) 12/25/2018 Other malignant neoplasm without specification of site melanoma on arm Problems with hearing Spondylosis of lumbar region without myelopathy or radiculopathy 2017 Unspecified otitis media Past Surgical History: Procedure Laterality Date ANGIOPLASTY STENT CORONARY VIA GROIN N/A 12/26/2018 Procedure: ANGIOPLASTY STENT CORONARY; Surgeon: Champ Fuentes MD; Location: [facility] CATHETERIZATION HEART LEFT N/A 01/01/2019 Procedure: CATHETERIZATION HEART LEFT; Surgeon: Champ Fuentes MD; Location: [facility] ECHO, TRANS ESOPHOGEAL N/A 12/26/2018 Procedure: ECHO, TRANS ESOPHOGEAL; Surgeon: Paco Bradley MD; Location: [facility] MS I&D, POST SPINE, LUMB/SACR/LUMBOSAC MS REMOVE TONSILS/ADENOIDS,12+ Y/O Allergies Allergen Reactions Oxycontin Unknown Reaction Sulfa Antibiotics Rash Skin burning and itching Current Outpatient Medications Medication Sig albuterol (PROVENTIL, VENTOLIN) (2.5 MG/3ML) 0.083% Inhalation Nebu Soln Take 2.5 mg by inhalation. aspirin 81 MG Oral Tab EC Take 1 Tab by mouth DAILY. Baclofen 5 MG Oral Tab Take 1 Tab by mouth EVERY BEDTIME NEEDED. celeCOXIB (CELEBREX) 100 MG Oral Cap Take 100 mg by mouth TWICE DAILY. Cyanocobalamin (B-12) 500 MCG Oral Tab Take 1 Tab by mouth DAILY. Docusate Sodium 100 MG Oral Tab Take 1 Tab by mouth TWICE DAILY. ipratropium (ATROVENT) 0.03 % Nasal Solution [place] 2 Sprays in nose. isosorbide MONOnitrate (IMDUR) 30 MG Oral TABLET SR 24 HR Take 1 Tab by mouth DAILY. levothyroxine (SYNTHROID) 75 MCG Oral Tab Take 1 Tab by mouth BEFORE BREAKFAST. Melatonin 10 MG Oral Cap Take 1 Cap by mouth EVERY BEDTIME. methocarbamol (ROBAXIN) 500 MG Oral Tab Take 500 mg by mouth EVERY BEDTIME. metoprolol (LOPRESSOR) 25 MG Oral Tab Take 1 Tab by mouth TWICE DAILY. Omeprazole delayed rel cap 20 MG Oral CAPSULE DELAYED RELEASE Take 20 mg by mouth DAILY. ondansetron (ZOFRAN) 4 MG Oral Tab Take 4 mg by mouth EVERY EIGHT HOURS NEEDED. oxybutynin (DITROPAN) 5 MG Oral Tab Take 5 mg by mouth TWICE DAILY. oxycodone, immediate release, (OXY-IR) 15 MG Oral Tab Take 15 mg by mouth EVERY FOUR HOURS NEEDED. Rosuvastatin Calcium (CRESTOR) 40 MG Oral Tab TAKE 1 TABLET BY MOUTH DAILY ticagrelor (BRILINTA) 90 MG Oral Tab Take 1 Tab by mouth TWICE DAILY. torsemide (DEMADEX) 20 MG Oral Tab Take 1 Tab by mouth DAILY. TRAZODONE HCL PO Take 100 mg by mouth EVERY BEDTIME NEEDED. venlafaxine (EFFEXOR XR) 150 MG Oral CAPSULE SR 24 HR Take 150 mg by mouth EVERY TWENTY-FOUR HOURS. No current facility-administered medications for this visit. History reviewed. No pertinent family history. Social History Socioeconomic History Marital status: Spouse name: Not on file Number of children: Not on file Years of education: Not on file Highest education level: Not on file Occupational History Not on file Social Needs Financial resource strain: Not on file Food insecurity Worry: Not on file Inability: Not on file Transportation needs Medical: Not on file Non-medical: Not on file Tobacco Use Smoking status: Current Every Day Smoker Packs/day: 1.50 Years: 49.00 Pack years: 73.50 Types: Cigarettes Smokeless tobacco: Never Used Substance and Sexual Activity Alcohol use: No Drug use: No Sexual activity: Not on file Lifestyle Physical activity Days per week: Not on file Minutes per session: Not on file Stress: Not on file Relationships Social connections Talks on phone: Not on file Gets together: Not on file Attends taoism service: Not on file Active member of club or organization: Not on file Attends meetings of clubs or organizations: Not on file Relationship status: Not on file Intimate partner violence Fear of current or ex partner: Not on file Emotionally abused: Not on file Physically abused: Not on file Forced sexual activity: Not on file Other Topics Concern Not on file Social History Narrative Not on file Physical Exam: Vitals: 03/30/19 0958 BP: 132/58 Pulse: (!) 48 SpO2: 99% Weight: 127 lb (57.6 kg) Height: 5' 4" (1.626 m) Body mass index is 21.8 kg/m. General: Thin, 78-y.o. female, appears older than stated age HEENT: anicteric, MMM, no E/E OP, conj pink Neck: No carotid bruits CV: Bradycardic, +systolic and diastolic murmur best heard at apex Pulm: CTA bilaterally without wheezes, rhonchi, or rales. No increased work of breathing. Abd: soft, NT, ND, +BS. No appreciable pulsatile masses or bruits. Ext: No lower extremity edema, no cyanosis, no cords, redness, or warmth, 2+ distal pulses Neuro: no gross focal deficits Skin: no visible lesions Labs: Lab Results Component Value Date NA 142 02/16/2019 K 4.7 02/16/2019 CL 107 02/16/2019 CO2 25 02/16/2019 GLUCOSE 103 (H) 02/16/2019 BUN 24 (H) 02/16/2019 CREATININE 1.1 02/16/2019 CALCIUM 9.8 02/16/2019 TP 7.5 02/16/2019 ALBUMIN 3.9 02/16/2019 AST 26 02/16/2019 ALT 20 02/16/2019 ALK 115 02/16/2019 TBILI 0.4 02/16/2019 EGFR 48 02/16/2019 Lab Results Component Value Date NT PRO BNP 1,090 (H) 02/16/2019 Lab Results Component Value Date CHOL 127 02/16/2019 TRIG 102 02/16/2019 HDL 52 02/16/2019 LDL 55 02/16/2019 LDLHDLRATIO 1.1 02/16/2019 CHOLHDLRATIO 2.4 02/16/2019 Assessment & Plan: Shu Nagy is a 78-y.o. female with ICD-9-CM ICD-10-CM 1. Dizziness and giddiness 780.4 R42 AMBULATORY 12 LEAD EKG (GLOBAL) MAGNESIUM LEVEL CBC WITH DIFFERENTIAL BASIC METABOLIC PANEL NT PROBNP NT PROBNP BASIC METABOLIC PANEL CBC WITH DIFFERENTIAL MAGNESIUM LEVEL 1. Coronary Artery Disease, s/p NSTEMI and Multivessel PCI: No significant angina at this time despite her residual severe diag and OM1 disease which are not amenable to revascularization. I recommend the following: Antiplatelets: Continue aspirin 81 mg daily for life. Given increased shortness of breath, will switch Brilinta to Plavix. Plavix 300mg loading dose overlapping with Brilinta 90mg BID dose, followed by Plavix 75mg daily (through December 2019). Statin: Cont Crestor 40mg daily. LDL 55 in January 2019. Beta-brenton: Metoprolol as below. BEATRIZ-inhibitor/ARB: Not on. Anti-Anginals: Cont low dose Imdur Cardiac Rehab: I think she's a bit too frail right now to get much out of cardiac rehab. I encouraged her to work on walking around her home. 2. Mixed Valvular Disease: Has mod-severe rheumatic MS with significant MR as well as mild . Unfortunately, her MR will probably preclude balloon valvuloplasty, so we'll continue to treat her MS medically since her MVA is 1.3- 1.5cm2 by echo estimates. Continue increased dose of metoprolol to 25mg BID. Heart rate is low today. Unclear whether herdizziness is due to low heart rate, or her overall deconditioning and frailty. Therefore, will checka Holter monitor. Cont torsemide 20mg daily. Checking a BMP and NT-proBNP 1-2 weeks after making that change. Acute on chronic numbness/tingling. Per patient's daughter, Chris, this numbness has been present for a while now (>1 year). Will check BMP and Mg to make sure there are no electrolyte imbalances. Case d/w with Dr. Garcia. Final plan discussed with Chris, pt's daughter, Chris, over the phone (per pt's request). Thank you for allowing me to participate in the care of Shu Nagy. We will plan on f/u in our officein 04/29/2019 or sooner prn. If you have any questions or concerns please feel free to call our office. DALIA Gomez, 03/30/2019, 10:46 documented in this encounter Plan of Treatment Date Type Specialty Care Team Description 04/13/2019 Nurse/Clinical Support Internal Medicine 04/29/2019 Office Visit Cardiology Eric Garcia MD [address] [place] [address] [phone] Name Type Priority Associated Diagnoses Date/Time MAGNESIUM LEVEL Lab Routine Dizziness and giddiness 03/30/2019 10:45 AM EST CBC WITH DIFFERENTIAL Lab Routine Dizziness and giddiness 03/30/2019 10:45 AM EST BASIC METABOLIC PANEL Lab Routine Dizziness and giddiness 03/30/2019 10:45 AM EST NT PROBNP Lab Routine Dizziness and giddiness 03/30/2019 10:45 AM EST Name Type Priority Associated Diagnoses Order Schedule AMBULATORY 12 LEAD EKG EKG Routine Dizziness and giddiness Ordered: 2018 (GLOBAL) MAGNESIUM LEVEL Lab Routine Dizziness and giddiness Expected: 03/30/2019 (Approximate), Expires: 03/30/2020 CBC WITH DIFFERENTIAL Lab Routine Dizziness and giddiness Expected: 2018 (Approximate), Expires: 03/30/2020 BASIC METABOLIC PANEL Lab Routine Dizziness and giddiness Expected: 2018 (Approximate), Expires: 03/30/2020 NT PROBNP Lab Routine Dizziness and giddiness Expected: 03/30/2019 (Approximate), Expires: 03/30/2020 HOLTER MONITOR 24-48 EKG Routine Dizziness and giddiness Expected: 2018, HOURS Expires: 05/03/2020 Health Maintenance Due Date Last Done Comments MEDICARE ANNUAL WELLNESS VISIT 1940 DTaP/Tdap/Td Vaccines (1 - Tdap) 1952 DEPRESSION SCREENING 1953 HIV SCREENING 1956 ZOSTER IMMUNIZATION SERIES (1 of 2) 1991 LUNG CANCER SCREENING 1996 FALL RISK ASSESSMENT 2006 OSTEOPOROSIS SCREENING 2006 PNEUMOCOCCAL 65+YRS (1 of 2 - 2006 PCV13) INFLUENZA VACCINE (#1) 2018 HEPATITIS A IMMUNIZATION SERIES Aged Out No longer eligible based on patient's age to complete this topic HPV IMMUNIZATION SERIES Aged Out No longer eligible based on patient's age to complete this topic MENINGOCOCCAL VACCINE IMM Aged Out No longer eligible based on patient's age to complete this topic documented as of this encounter Implants Implanted Type Area Relief Map Modeler Device Shelf Model / Identifier Expiration Serial / Lot Date 2.75 X 40 Orsiro N/A: [id number] / Implanted: Qty: 1 on 12/26/2018 by Champ Fuentes MD at [facility] / [id number] 2.5 X 13 Orsiro N/A: Diagonal [id number] / Implanted: Qty: 1 on 12/26/2018 by Champ Fuentes MD at [facility] / [id number] 3.0 X 15 Orsiro N/A: [id number] / Implanted: Qty: 1 on 12/26/2018 by Champ Fuentes MD at [facility] / [id number] documented as of this encounter Results Not on filedocumented in this encounter Visit Diagnoses Diagnosis Dizziness and giddiness documented in this encounter Insurance Payer Benefit Plan / Subscriber ID Effective Dates Phone Address Type Group MEDICARE MEDICARE PART A xxxxxxxxxxx 2006-Present Medicare & B MEDICAID [facility] xxxxxxxx 2016-Present [place] Guarantor Name Account Type Relation to Date of Phone Billing Patient Address [place] Personal/Family 1940 [address] (Home) [place], [place] [phone] [id number] (Work) documented as of this encounter Advance Directives [...]
--- OUTSIDE RECORDS SUMMARY | 2019-04-26 13:34 | XMS REPORT | Continuity of Care Document ---
:1940 External Reference #:[id number] Author Name Martha Bennett MD, PHD Address [address] [place] [address], [address] [place] [address] Care Team Providers Name Role Phone Martha Bennett MD, PHD - Family Care Team Information Clinical Rehab Specialist Medicine Haylee Santiago Manufacturing Design Engineer [place] Care Team Information Clinical Rehab Specialist Problems Active Problems Provider Date Hyperlipidemia Martha [...] Medications Active Medications SIG Qnty Indications Ordering Provider Date Oxybutynin Chloride by mouth twice 60tabs R35.0 Martha Bennett, 2018 5mg a day PHD KAREN Tablets R30.0 Metoprolol Succinate Take 1 Tablet By 90Tablet Martha Bennett, 2018 ER Mouth Every Evening PHD KAREN 25mg Tablets ER 24HR Rosuvastatin Calcium Take 1 Tablet By 90Tablet Martha Bennett, 2018 Mouth Every Day PHD KAREN 5mg Tablets Baclofen Take 1 Tablet By 30tabs Martha Bennett, 02/27/2019 5mg Tablets Mouth AT Bedtime as PHD KAREN Needed Torsemide 1 tab by mouth every 90tabs Martha Bennett, 02/25/2019 20mg Tablets morning - from PHD KAREN technical inspector [facility] Aspirin Adult Low 1 tab by mouth every 90units I25.119 Martha Bennett , 02/24/2019 Dose day PHD KAREN 81mg Chewtabs E11.9 Z72.0 [facility] Melatonin Take 1 Capsule By 90Caps Martha Bennett, 02/23/2019 10mg Mouth Every Day AT PHD KAREN Capsules Bedtime as Needed Omeprazole Take 1 Capsule By 90Caps Martha Bennett, 02/23/2019 20mg Mouth Every Day , PHD Capsules DR Celecoxib Take 1 Capsule By 180Caps Martha Bennett, 02/23/2019 100mg Mouth Twice A Day as , PHD Capsules Needed For Pain And Swelling Trazodone HCL Take 1 Tablet By 90Tablet Martha Bennett, 02/16/2019 100mg Mouth Every Day AT , PHD Tablets Bedtime as Needed For Sleep Freestyle Wells test 1-3 times a day 1units E11.9 Martha Bennett, 02/05 Lite as directed , PHD W/Device Kit Freestyle Lancets to test 1-3 times a 100units E11.9 Martha Bennett, 09/2018 day as directed. , PHD Misc Freestyle Lite Test 1-3 times a day as 100units E11.9 Martha Bennett, 09/2018 directed , PHD Strips Alcohol Prep use every day with 100units Martha Bennett, 02/05/2019 70% Pads glucometer , PHD fingersticks 1-3 times a day B12 Fast Dissolve tab by mouth every 30tabs M79.606 Martha Bennett, 01/28 day , PHD 5000mcg Tablets Dispers Melatonin 1 caps by mouth at 30caps Martha Bennett, 01/28/2019 10mg bedtime as needed , PHD Capsules Ondansetron take one tablet by 60tabs Martha Bennett, 01/16/2019 4mg mouth every 12 hours , PHD Tablets Dispers as needed for nausea with morphine Morphine Sulfate ER 1 tabs by mouth twice 60tabs M54.6 Martha Bennett, a day , PHD 15mg Tablets ER M54.5 I25.119 Nitrostat 1 tab sl every 5 30tabs [...] walker 1units M19.90 Martha Bennett MD, 01/12/2019 [facility] standard size. PHD R26.81 S22.009G Brilinta take 1 tab by mouth 60tabs Martha Bennett, 12/27/2018 90mg Tablets twice daily. , PHD Oxycodone HCL 1 tab by mouth three 90tabs Martha Bennett, 12/17/2018 15mg times a day as needed , PHD Tablets Back Support Women Elastic 1units M54.6 Martha Bennett, 06/26/2018 [facility] Adjustable Shoulder , PHD Brace Waist Belt Back Support Posture Corrector,Posture Corrector, Shoulder Support Brace M54.5 S22.000D Wheelchair [facility] M54.5 Martha Bennett MD, PHD M54.6 Isosorbide Mononitrate ER 1 by mouth every 30tabs Martha Bennett MD, 30mg day PHD Tablets ER 24HR Ipratropium [place] 2 Sprays in Unknown 0.03% nose. Solution Albuterol Sulfate Take 2.5 mg by Unknown (2.5mg/3ML) inhalation. 0.083% Nebulizer Synthroid 1 by mouth every 90tabs Martha Bennett MD, 75mcg Tablets day PHD History Medications Potassium Chloride 1 tab by mouth 90tabs Martha Bennett, 02/06/2019 - Virgie ER every day with , PHD 02/06/2019 10Meq Tablets furosemide ER Potassium Citrate ER take by mouth 90tabs Martha Bennett, 01/30/2019 - every morning MD PHD 01/30/2019 5Meq (540 mg) Tablets ER Metoprolol Succinate 1 tab by mouth 60tabs Martha Bennett, 01/28/2019 - ER twice a day MD PHD 03/02/2019 25mg Tablets ER 24HR Melatonin Plus 1 tab by mouth at 30tabs Martha Bennett, 01/26/2019 - L-Theanine bedtime as needed , PHD 01/28/2019 10-5.5mg Tablets Baclofen Take 1 Tablet By 30tabs Martha Bennett, 01/23/2019 - 5mg Tablets Mouth AT Bedtime , PHD 02/06/2019 as Needed Methocarbamol 1 tabs by mouth at 14tabs M54.5 Martha Bennett, 01/13/2019 - 500mg bedtime , PHD 03/03/2019 Tablets M79.606 Zohydro ER 1 tab by mouth 14units M79.606 Martha Bennett, 01/13/2019 - 15mg twice a day , PHD 01/14/2019 C12a M54.6 I25.119 Amitiza 1 cap by mouth three 90caps K59.03 Martha Bennett, 01/13/2019 - 8mcg times a day for , PHD 01/30/2019 Capsules constipation M54.5 Aspirin 81 take 1 tab by 30tabs Sabrina, 12/28/2018 - 81mg Tablets DR mouth daily. MD Martha, 02/24/2019 PHD Hydrochlorothiazide Take 1 Tab by 30tabs Unknown 12/28/2018 - 25mg Tablets mouth Daily. 01/13/2019 Indications: High Blood Pressure Disorder Quinapril HCL take 1 tab by 30tabs I10 Sabrina, 12/28/2018 - 10mg Tablets mouth daily. MD Martha, 02/25/2019 indications: PHD high blood pressure disorder I25.119 E11.9 Metoprolol Tartrate Take 0.5 Tabs by 60tabs Unknown 12/27/2018 - mouth Twice 01/28/2019 25mg Tablets Daily. Quinapril HCL 1 by mouth every Martha Bennett, 12/17/2018 - 10mg day , PHD 01/13/2019 Tablets Quinapril HCL 1 tab by mouth 90tabs Martha Bennett, 12/17/2018 - 20mg every day , PHD 12/17/2018 Tablets Advair HFA 1 puffs inhaled 12gm J44.9 Martha Bennett, 12/17/2018 - twice a day , PHD 01/30/2019 115-21mcg/Act Aerosol Oxybutynin Chloride by mouth twice a 60tabs Martha Bennett, 12/17/2018 - day , PHD 01/13/2019 5mg Tablets Nac 600 1 cap by mouth 90caps F32.0 Martha Bennett, 12/17/2018 - 600mg three times a , PHD 01/13/2019 Capsules day after meals B12 Fast Dissolve tab by mouth 90tabs M79.606 Martha Bennett, 12/17/2018 - every day , PHD 01/13/2019 5000mcg Tablets Dispers Magnesium Gluconate tab by mouth 60tabs M79.606 Martha Bennett, 2018 - twice a day , PHD 01/13/2019 500mg Tablets muscle spasms Baclofen take 1 tablet by 30tabs Martha Bennett, 11/20/2018 - 5mg mouth at bedtime , PHD 01/13/2019 Tablets as needed Buspirone HCL take one tablet 90tabs Martha Bennett, 10/20/2018 - 7.5mg by mouth three , PHD 01/13/2019 Tablets times a day as needed Baclofen Take 1 Tablet By 90tabs Martha [...] day , PHD 12/17/2018 5000Unit Capsules M79.606 Omeprazole Take 1 Capsule 90caps R13.14 Martha Bennett, 09/05/2018 - 20mg By Mouth Once , PHD 02/23/[address] Villalba K21.0 Tizanidine HCL 1 tab by mouth at 14caps M54.6 Martha Bennett, 09/05/2018 - 2mg bedtime as needed , PHD 12/17/2018 Capsules for muscle spasm Pyridium 1 tab by mouth 60tabs R10.2 Martha Bennett, 09/05/2018 - 100mg twice a day every , PHD 12/17/2018 Tablets evening as needed Duloxetine HCL 1 tab by mouth 30caps F33.1 Martha Bennett, 09/05/2018 - 30mg every night - stop , PHD 01/13/[address] Ayers venlafaxine Immunizations CPT Code Status Date Vaccine Lot # [id number] Given 12/17/2018 Influenza Virus Vaccine, Quadrivalent, 36 Mos+, .5ML Vital Signs Date Vital Result Comment 01/13/2019 2:42pm BP Systolic 99 mmHg BP Diastolic 62 mmHg Body Temperature 97.1 F Heart Rate 82 /min Respiratory Rate 20 /min Height 63 inches 5'3" Weight 130.00 lb BMI (Body Mass Index) 23.0 kg/m2 BSA (Body Surface Area) 1.61 m2 [place] body weight in kilograms 52 kg O2 % BldC Oximetry 99 % 12/17/2018 10:00am BP Systolic 169 mmHg BP Diastolic 89 mmHg Body Temperature 97.3 F Heart Rate 69 /min Respiratory Rate 20 /min Height 63 inches 5'3" Weight 139.00 lb BMI (Body Mass Index) 24.6 kg/m2 BSA (Body Surface Area) 1.66 m2 [place] body weight in kilograms 52 kg O2 % BldC Oximetry 95 % Results Test Acquired Date Facility Test Result H/L Range Note BMP W/Egfr 01/30/2019 [facility] Sodium 142 mmol/L Normal 135-145 [phone] Potassium 3.8 mmol/L Normal 3.5-5.0 Chloride 109 mmol/L Normal 101-111 Co2 Carbon Dioxide 29 mmol/L Normal 22-32 Anion Gap 4 mmol/L Normal 2-11 Glucose 116 mg/dL High 70-100 Blood Urea Nitrogen 17 mg/dL Normal 6-24 Creatinine 0.82 mg/dL Normal 0.51-0.95 BUN/Creatinine Ratio 20.7 High 8-20 Calcium 8.9 mg/dL Normal 8.6-10.3 Egfr Non- 67.6 >60 Egfr 81.8 >60 1 Laboratory test 01/26/2019 [facility] Troponin I 0.03 ng/mL <0.04 2 finding [phone] Inr/Protime 01/25/2019 [facility] Inr 0.97 Normal 0.82-1.09 3 [phone] Laboratory test 01/25/2019 [facility] Lactic Acid 1.0 mmol/L Normal 0.5-2.0 4 finding [phone] Comp Metabolic 01/25/2019 [facility] Sodium 141 mmol/ L Normal 135-145 Panel [phone] Chloride 107 mmol/L Normal 101-111 Co2 Carbon Dioxide 27 mmol/L Normal 22-32 Glucose 100 mg/dL Normal 70-100 Blood Urea Nitrogen 22 mg/dL Normal 6-24 Creatinine 0.84 mg/dL Normal 0.51-0.95 BUN/Creatinine Ratio 26.2 High 8-20 Calcium 9.1 mg/dL Normal 8.6-10.3 Total Protein 6.5 g/dL Normal 6.4-8.9 Albumin 3.4 g/dL Normal 3.2-5.2 Globulin 3.1 g/dL Normal 2-4 Albumin/Globulin Ratio 1.1 Normal 1-3 Total Bilirubin 0.30 mg/dL Normal 0.2-1.0 Alkaline Phosphatase 103 U/L Normal 34-104 Alt 10 U/L Normal 7-52 Ast 12 U/L Low 13-39 Egfr Non- 65.7 >60 Egfr 79.6 >60 5 Potassium 2.6 mmol/L Critical low 3.5-5.0 6 Anion Gap 7 mmol/L Normal 2-11 Laboratory test 01/25/2019 [facility] Troponin I 0.03 ng/mL <0.04 7 finding [phone] B Type Natriuretic Peptide 243 pg/mL High <=100 CKMB 01/06/2019 [facility] CKMB ng/mL 1.2 ng/mL Normal 0.6-6.3 [phone] Laboratory test 01/06/2019 [facility] Magnesium 1.6 mg/dL Low 1.9-2.7 finding [phone] Creatine Kinase 24 U/L Normal 10-223 Troponin I 0.10 ng/mL Critical high <0.04 8 Comp Metabolic 01/06/2019 [facility] Sodium 132 mmol/ L Low 135-145 Panel [phone] Potassium 3.4 mmol/L Low 3.5-5.0 Chloride 98 [...] Egfr Non- 33.2 >60 Egfr 40.1 >60 9 Laboratory 01/06/2019 [facility] Activated 34.5 Normal 26.0-38.0 test finding [phone] Partial seconds Thrombo Time Inr/Protime 01/06/2019 [facility] Inr 1.01 Normal 0.82-1.09 10 [phone] Laboratory 01/06/2019 [facility] B Type 157 pg/mL High <=100 test finding [phone] Natriuretic Peptide CBC Auto Diff 01/06/2019 [facility] White Blood 13.3 High 3.5-10.8 [phone] Count 10^3/uL Red Blood Count 4.51 10^6/uL [...] Red Blood Cells % 0.0 Laboratory 01/06/2019 [facility] Troponin I 0.09 Critical <0.04 11 test finding [phone] ng/mL high Laboratory 12/30/2018 [facility] T4 7.78 Normal 6.09-12. test finding [phone] g/dL 23 TSH (Thyroid Stim Horm) 10.33 mcIU/mL High 0.34-5.60 CKMB 12/30/2018 [facility] CKMB ng/mL 2.3 Normal 0.6-6.3 [phone] ng/mL Laboratory 12/30/2018 [facility] Troponin I 2.63 Critical <0.04 12 test finding [phone] [phone] high Creatine Kinase 59 U/L Normal 10-223 Comp Metabolic 12/30/2018 [facility] Sodium 133 mmol/ L Low 135-145 Panel [phone] Potassium 3.6 mmol/L Normal 3.5-5.0 Chloride 99 [...] Egfr Non- 39.4 >60 Egfr 47.6 >60 13 Laboratory test 12/30/2018 [facility] B Type 106 pg/ mL High <=100 finding [phone] Natriuretic Peptide Activated Partial Thrombo Time 33.8 seconds Normal 26.0-38.0 D Dimer Quantitative 574 ng/mL High Less Than 230 14 Lactic Acid 1.0 mmol/L Normal 0.5-2.0 15 Inr/Protime 12/30/2018 [facility] Inr 1.04 Normal 0.82-1.09 16 [phone] CBC Auto Diff 12/30/2018 [facility] White Blood 7.8 Normal 3.5-10.8 [phone] Count 10^3/uL Red Blood Count 3.98 10^6/uL [...] Nucleated Red Blood Cells % 0.0 Laboratory 12/30/2018 [facility] Troponin I 2.74 Critical <0.04 17 test finding [phone] [phone] high Laboratory 12/22/2018 [facility] Magnesium 1.8 mg/dL Low 1.9-2.7 test finding [phone] LDL Cholesterol Direct 71 mg/dL 18 TSH (Thyroid Stim Horm) 2.19 mcIU/mL Normal 0.34-5.60 Folate 16.29 ng/mL >3.99 Vitamin B12 > 1450 pg/mL High 180-914 19 Lyme Screen w/ Reflex to WB Negative Negative Laboratory test 12/22/2018 [facility] Hemoglobin 5.6 % Normal 4.0-5.6 20 finding [phone] A1c (Glyco HGB) Hla-B27 Disease 12/22/2018 [facility] Hla B27 Negative 21 Association [phone] Hla B27 Interp See Comment 22 Laboratory 12/22/2018 [facility] Erythrocyte Sed 42 mm/Hr High 0-29 test finding [phone] Rate Urine Drug SCR 12/22/2018 [facility] Urine None None ED & Pain [phone] Amphetamine Detected Detect Clinic Screen Urine Barbiturates Screen None Detected None Detect Urine Benzodiazepine Screen None Detected None Detect Urine Cannabinoids Screen None Detected None Detect Urine Cocaine Screen None Detected None Detect Urine Opiates Screen Presumptive Posi <SEE NOTE> Abnormal None Detect 23 Urine Phencyclidine Screen None Detected None Detect 24 Laboratory test 12/22/2018 [facility] Urine Random 41 mmol/L finding [phone] Sodium Urine Random Creatinine 182.27 mg/dL CBC Auto 12/22/2018 [facility] White Blood 10.5 10^3/ uL Normal 3.5-10.8 Diff [phone] Count Red Blood Count 3.95 10^6/uL Normal 3.70-4.87 [...] % Nucleated Red Blood Cells % 0.0 Inr/Protime 12/22/2018 [facility] Inr 0.95 Normal 0.82-1.09 25 [phone] Comp Metabolic 12/22/2018 [facility] Sodium 132 mmol/ L Low 135-145 Panel [phone] Potassium 3.4 mmol/L Low 3.5-5.0 Chloride 99 [...] Egfr Non- 18.2 >60 Egfr 22.0 >60 26 Lipid Profile 12/22/2018 [facility] Triglycerides 88 mg/dL 27 (Trig/Chol/HDL) [phone] Cholesterol 125 mg/dL 28 HDL Cholesterol 47.8 mg/dL 29 LDL Cholesterol 60 mg/dL 30 Laboratory test 12/22/2018 [facility] Troponin I 5.25 Critical <0.04 31 finding [phone] [phone] high Lactic Acid 1.6 mmol/L Normal 0.5-2.0 32 Comprehensive 12/22/2018 [facility] Sodium 136 mmol/ L Normal 135-145 Metabolic Panel [phone] Potassium 4.0 mmol/L Normal 3.5-5.0 Chloride 100 [...] Egfr Non- 16.5 >60 Egfr 19.9 >60 33 CBC W/Automated 12/22/2018 [facility] White 10.9 10^3 /uL High 3.5-10.8 Diff [phone] Blood Count Red Blood Count 4.28 10^6/uL Normal 3.70-4.87 [...] Blood Cells % 0.0 Laboratory test 12/22/2018 [facility] Vitamin D 25.3 ng/mL Normal 20-50 34 finding [phone] Total 25(Oh) Laboratory test 12/22/2018 [facility] Alcohol < 10 mg /dL Normal <10 finding [phone] TSH (Thyroid Stim Horm) 1.88 mcIU/mL Normal 0.34-5.60 Vitamin B12 > 1450 pg/mL High 180-914 35 Urine Culture And 12/22/2018 [facility] Urine Culture SEE RESULT 36 Sensitivities [phone] BELOW Laboratory test 12/22/2018 [facility] Creatine 75 U/ L Normal 10-2 finding [phone] Kinase 23 Urinalysis Profile 12/22/2018 [facility] Urine Color [place] [phone] Urine Appearance Cloudy Urine Specific [place] 1.014 Normal 1.010-1.030 Urine pH 5.0 Normal [...] Hyaline Casts Present Abnormal Absent CKMB 12/22/2018 [facility] CKMB ng/mL 6.8 ng/mL High 0.6-6.3 [phone] Laboratory test 12/17/2018 [facility] Sedimentation <pending> finding [address] Rate [place], [place] [id number] [phone] Thyroid Stim Hormone <pending> Vitamin D,25-Hydroxy <pending> Laboratory 12/17/2018 [facility] Magnesium <pending> test finding [address] [place] [address] [phone] Laboratory 12/17/2018 [facility] Hla-B27 Disease <pending> test finding [address] [place] [address] [phone] Laboratory 12/17/2018 [facility] Glycohemoglobin A1c <pending> test finding [address] [place] [address] [phone] Ua RFX Micro & 10/16/2018 [facility] Urine Color YELLOW Yellow 37 Culture II [address] [place] [address] [phone] Urine Clarity CLEAR Clear Urine Glucose - Dipstick NEGATIVE mg/dL Negative Urine Bilirubin - Dipstick NEGATIVE Negative Urine Ketone NEGATIVE mg/dL Negative Urine Specific [place] 1.020 Normal 1.010-1.030 Urine Blood NEGATIVE Negative Urine PH 6.0 Low 6.5-7.5 Urine Protein - Dipstick NEGATIVE mg/dL Negative Urine Urobilinogen - Dipstick 1.0 E.U./dL Normal 0.2-1.0 Urine Nitrite - Dipstick NEGATIVE Negative Urine Leuk Esterase NEGATIVE Negative Source: URINE, CLEAN CAT <SEE NOTE> 38 Urine Culture 10/16/2018 [facility] Urine Culture MIXED URETHRAL F 39 [address] [facility] <SEE NOTE> [place], [place] [id number] [phone] Quantity 50,000 - 100,000 <SEE NOTE> 40 1 Because ethnic data is not always [...] immediately to secondary confirmatory testing. Using the Eyeview DxI 800 Access Immunoassay systems, the 99th percentile upper reference limit was demonstrated to be < 0.03 ng/mL. 3 Standard intensity warfarin therapeutic range: 2.0-3.0 High intensity warfarin therapeutic range: 2.5-3.5 4 VAS Severe Sepsis and Septic Shock Management Bundle Measure requires all lactic acids initially measuring >2.0 mmol/L be repeated. 5 Because ethnic data is not always [...] 5 Kidney failure <15 (or dialysis) 6 Critical Result K:2.6 Called to [id number] at: 23:59:03 by:[id number] Read back by:[id number] 7 Troponin-I testing on Plasma Separator Tubes (PST) has a known false positive rate of 0.20-0.40%. All positive troponins reflex immediately to secondary confirmatory testing. Using the Eyeview DxI 800 Access Immunoassay systems, the 99th percentile upper reference limit was demonstrated to be < 0.03 ng/mL. 8 Result TnIDx:0.10 Called to [id number] at: 15:43:47 by:[id number] Read back by: [id number] Troponin-I testing on Plasma Separator Tubes (PST) has a known false positive rate of 0.20-0.40%. All positive troponins reflex immediately to secondary confirmatory testing. Using the Eyeview DxI 800 Access Immunoassay systems, the 99th percentile upper reference limit was demonstrated to be < 0.03 ng/mL. 9 Because ethnic data is not always readily [...] 15-29 5 Kidney failure <15 (or dialysis) 10 Standard intensity warfarin therapeutic range: 2.0-3.0 High intensity warfarin therapeutic range: 2.5-3.5 11 Result TnIDx:0.09 Called to [id number] at: 18:50:37 by:[id number] Read back by: [id number] Troponin-I testing on Plasma Separator Tubes (PST) has a known false positive rate of 0.20-0.40%. All positive troponins reflex immediately to secondary confirmatory testing. Using the Eyeview DxI 800 Access Immunoassay systems, the 99th percentile upper reference limit was demonstrated to be < 0.03 ng/mL. 12 Result TnIDx:2.63 Called to [id number] at: 19:31:55 by:[id number] Read back by: [id number] Troponin-I testing on Plasma Separator Tubes (PST) has a known false positive rate of 0.20-0.40%. All positive troponins reflex immediately to secondary confirmatory testing. Using the [employer] DxI 800 Access Immunoassay systems, the 99th percentile upper reference limit was demonstrated to be < 0.03 ng/mL. 13 Because ethnic data is not always readily [...] 15-29 5 Kidney failure <15 (or dialysis) 14 Please note: The following may produce a false positive D Dimer test: - Rheumatoid factor greater than 60 IU/ml - Plasma hemoglobin greater than 0.05 gm/dl - Bilirubin greater than 50 mg/dl - Lipids greater than 1000 mg/dl - FDP greater than 20 ug/ml 15 [facility] Severe Sepsis and Septic Shock Management Bundle Measure requires all lactic acids initially measuring >2.0 mmol/L be repeated. 16 Standard intensity warfarin therapeutic range: 2.0-3.0 High intensity warfarin therapeutic range: 2.5-3.5 17 Result TnIDx:2.74 Called to [id number] at: 22:41:06 by:[id number] Read back by: [id number] Troponin-I testing on Plasma Separator Tubes (PST) has a known false positive rate of 0.20-0.40%. All positive troponins reflex immediately to secondary confirmatory testing. Using the Eyeview DxI 800 Access Immunoassay systems, the 99th percentile upper reference limit was demonstrated to be < 0.03 ng/mL. 18 Desirable: <100 Near Optimal: 100-129 Borderline High: 130-159 High: 160-189 Very High: >189 19 Normal Range 180 to 914 Indeterminate Range 145 to 180 Deficient Range <145 20 Therapeutic target for the treatment of diabetes mellitus patients is <7% HBA1C, and in selective patients <6.0%. Please refer to [place] [employer] diabetic care guidelines for further information. 21 REFERENCE VALUE Not Applicable 22 RESULT: HLA-B27 antigen was not detected. ADDITIONAL INFORMATION Method: Flow Cytometry Test Performed by: [address] [address] Public Health Analyst: Ezra Chawla M.D. Ph.D.; IA# [id number] 23 Presumptive Positive Presumptive positive results are unconfirmed. 24 The urine specimen was tested at the listed cutoffs: Drug class test level (ng/mL) Amphetamines 500 Barbiturates 200 Benzodiazepine metabolites 200 Cocaine metabolites 150 Cannabinoids 50 Opiates 300 Pcp 25 Specimen was received without chain of custody. Results should be used for medical purposes only. 25 Standard intensity warfarin therapeutic range: 2.0-3.0 High intensity warfarin therapeutic range: 2.5-3.5 26 Because ethnic data is not always readily [...] 15-29 5 Kidney failure <15 (or dialysis) 27 Desirable: <150 Borderline High: 150-199 High: 200-499 Very High: >500 28 Desirable: <200 Borderline High: 200-239 High: >239 29 Low: <40 Desirable: 40-60 High: >60 30 Desirable: <100 Near Optimal: 100-129 Borderline High: 130-159 High: 160-189 Very High: >189 31 Result TnIDx:5.25 Called to [id number] at: 15:06:21 by:[id number] Read back by: [email or web address] Troponin-I testing on Plasma Separator Tubes (PST) has a known false positive rate of 0.20-0.40%. All positive troponins reflex immediately to secondary confirmatory testing. Using the Ey[employer]iew DxI 800 Access Immunoassay systems, the 99th percentile upper reference limit was demonstrated to be < 0.03 ng/mL. 32 [facility] Severe Sepsis and Septic Shock Management Bundle Measure requires all lactic acids initially measuring >2.0 mmol/L be repeated. 33 Because ethnic data is not always readily [...] 15-29 5 Kidney failure <15 (or dialysis) 34 Total 25-Hydroxyvitamin D2 and D3 (25-OH-VitD) <10 ng/mL (severe deficiency) 10-19 ng/mL (mild to moderate deficiency) 20-50 ng/mL (optimum levels) 51-80 ng/mL (increased risk of hypercalciuria) >80 ng/mL (toxicity possible) 35 Normal Range 180 to 914 Indeterminate Range 145 to 180 Deficient Range <145 36 SEE RESULT BELOW Name: SHU MORRIS : [address]: Romy Moreno MD Acct: [id number] Unit: [id number] AGE: 78 Location: [place] [address] Re12/22/18 SEX: F Status: ADM IN SPEC: [id number] SHERRIE: 12/22/18-[address]: Sergei Silverman MD REQ: [id number] RECD: 12/22/18 STATUS: SOLANGE RUBY DR: Martha Bennett MD _ SOURCE: URINE SPDESC: ORDERED: Urine Culture Procedure Result Reported Site Urine Culture Final 12/23/18- 1217 ML No growth of clinically significant organisms * ML - Main Lab . END OF REPORT DEPARTMENT OF PATHOLOGY, [address] [place] [address] Rojelio Cullen M.D. Director [facility] # [id number] 37 R35.0 38 URINE, CLEAN CATCH 39 MIXED URETHRAL [place] 40 50,000 - 100,000 CFU/mL Procedures Date Code Description Status 01/13/2019 47754 Brief Emotional/Behav Assessment W/ Scoring Doc Per Completed Standard Inst 09/11/2018 63997 Eye Exam New Patient Comprehensive Completed 09/05/2018 89744 Brief Emotional/Behav Assessment W/ Scoring Doc Per Completed Standard Inst 04/01/2017 [id number] Mammogram Completed Medical Devices Description No Information Available Encounters Type Date Location Provider Dx Diagnosis Office Visit 01/13/2019 Martha Craft, I25.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9 Gastro-esophageal reflux disease without esophagitis M54.5 Low back pain Z23 Encounter for immunization E03.9 Hypothyroidism, unspecified I25.10 Athscl heart disease [place] coronary artery w/o ang pctrs I10 Essential (primary) hypertension Z59.8 Other problems related to housing and economic circumstances M54.6 Pain in thoracic spine R53.83 Other fatigue Z13.21 Encounter for screening for nutritional disorder M19.90 Unspecified osteoarthritis, unspecified site R35.0 Frequency of micturition R30.0 Dysuria I73.9 Peripheral vascular disease, unspecified R01.1 Cardiac murmur, unspecified Office Visit 09/05/2018 4:15p Martha Craft, M54.6 Pain in thoracic Stevie Ann [...] Provider 01/13/2019 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[place] Martha Bennett MD, 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 01/13/2019 R53.83 Other fatigue Martha Bennett MD, PHD 01/13/2019 I95.89 Other hypotension Martha Bennett MD, PHD 01/13/2019 E11.9 Type 2 diabetes mellitus without Martha Bennett MD, PHD complications 01/13/2019 M54.6 Pain in thoracic spine Martha Bennett MD, PHD 01/13/2019 M54.5 Low back pain Martha Bennett MD, PHD 01/13/2019 F32.0 Major depressive disorder, single Martha Bennett MD, PHD episode, mild 01/13/2019 R05 Cough Martha Bennett MD, PHD 01/13/2019 K59.03 Drug [...] PHD 12/17/2018 I25.10 Atherosclerotic heart disease of [place] Martha Bennett MD, PHD coronary artery without [...] am - Martha Bennett MD, PHD at [facility] Main Functional Status Functional Condition Comment Date [...] high tobacco history eval please. [address] [facility] [address] [place] [address] [phone] Toño Win MD Can't see to read, can't read pill bottles. Store Closed readers not helping any more. Eyes swollen every morning. Sometimes flashing lights and floaters. Sometimes absolutely no sight in left eye, only using right eye. [address] [place] [address] [phone]
--- NOTE | 2019-04-26 13:57 | UC ---
Hip/Pelvis Pain - HPI Summary HPI Summary: 78 yo female presents, accompanied by daughter, with complaints of hip pain. Pt tells me that about 2 weeks ago she fell on two separate occasions in her kitchen. Pt lives alone and states that she lost her footing and balance in the kitchen and landed on her buttocks and left hip both times. Denies hitting her head or LOC. Since that time she has been having increased pain in b/l hips L> R. She has chronic pain, mostly in her lower back pain, and takes oxycodone 15mg TID for this. She states that many years ago she was on oxycodone 30mg TID , but her PCP that was prescribing that dosing retired and pt has new PCP that - she states - is uncomfortable prescribing that dosing. Pt has a walker at home , but does not use this. She denies numbness, tingling, saddle anesthesia, loss of bowel/bladder control, dysuria. Pt states she has had pain injections, PT, chiropractors, and pain clinic doctors in the past and "nothing helped". - History Of Current Complaint Stated Complaint: HIP INJURY Time Seen by Provider: 04/26/19 13:56 Hx Obtained From: Patient, Family/Building And Grounds Supervisor Hx Last Menstrual Period: post menopause Onset/Duration: Sudden Onset Timing: Constant Severity Initially: Severe Severity Currently: Severe Pain Intensity: 10 Pain Scale Used: 0-10 Numeric - Allergies/Home Medications Allergies/Adverse Reactions: Allergies Allergy/AdvReac Type Severity Reaction Status Date / Time oxycodone [From OxyContin] Allergy Hallucinati Verified 12/24/18 16:20 ons Sulfa (Sulfonamide Allergy Hives Verified 12/30/18 18:50 Antibiotics) PMH/Surg Hx/FS Hx/Imm Hx - Additional Past Medical History Additional PMH: Chronic pain Endocrine History: Diabetes, Hypothyroidism, Dyslipidemia Cardiovascular History: Cardiac Disease, Hypertension Respiratory History: COPD GI/ History: Gastroesophageal Reflux - Surgical History Surgical History: Yes Surgery Procedure, Year, and Place: CATARACTS; PARTIAL THYROIDECTOMY; PAVAN; HYSTERECTOMY; T&A; APPENDECTOMY; CYST REMOVED FROM KIDNEY; BACK SURGERY; MELANOMA REMOVED FROM LEFT ARM; NASAL SURGERY; three cardiac stents placed after OR - Family History Known Family History: Positive: Cardiac Disease - CHF, Other - CANCER - Social History Alcohol Use: None Substance Use Type: None Smoking Status (MU): Former Smoker Type: Cigarettes Amount Used/How Often: 1/2 PPD Length of Time of Smoking/Using Tobacco: 60 years Have You Smoked in the Last Year: Yes When Did the Patient Quit Smoking/Using Tobacco: 2 weeks ago Household Exposure Type: Cigarettes - Immunization History Most Recent Influenza Vaccination: Fall 2018 Most Recent Tetanus Shot: utd Most Recent Pneumonia Vaccination: Within 5 years Review of Systems All Other Systems Reviewed And Are Negative: No Constitutional: Positive: Negative Skin: Positive: Negative Neurovascular: Positive: Negative Musculoskeletal: Positive: Other: - Hip injury Neurological: Positive: Negative Psychological: Positive: Negative Physical Exam - Summary Physical Exam Summary: GENERAL: NAD. WDWN. SKIN: No rashes, sores, lesions, or open wounds. NECK: Supple. FROM. CHEST: CTAB. No r/r/w. No accessory muscle use. Breathing comfortably and in no distress. CV: RRR. Pulses intact. Cap refill <2seconds MSK: TTP over entire lumbar spine and paraspinal muscles. TTP about b/l hips and groin without specific point tenderness. Pain with flexion and extension of spine and flexion of both hips. FROM b/l hips. Positive SLR b/l for low back pain without radiation. Strength 5/5 B/L LEs including dorsiflexion and plantar flexion. FROM B/L LEs. No edema. NEURO: Alert. Sensations intact B/L LEs L3-S1. Reflexes intact PSYCH: Age appropriate behavior. Triage Information Reviewed: Yes Vital Signs: Vital Signs: Temp Pulse Resp BP Pulse Ox 98.2 F 53 18 155/54 98 04/26/19 14:00 04/26/19 14:00 04/26/19 14:00 04/26/19 14:04/26/19 14:00 Vital Signs Reviewed: Yes Diagnostics - Radiology HIP XR Radiology Interpretation Completed By: Radiologist Summary of Radiographic Findings: FINDINGS: Right: BONE DENSITY: There is diffuse osteopenia. BONES: There is no displaced fracture. JOINTS: There is mild osteoarthritis of the right hip. 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 ALIGNMENT: There is no dislocation. The alignment is anatomic. SOFT TISSUES: Unremarkable. Left: BONE DENSITY: There is diffuse osteopenia. BONES: There is no displaced fracture. JOINTS: There is moderate SI osteoarthritis with mild left hip osteoarthritis. ALIGNMENT: There is no dislocation. The alignment is anatomic. SOFT TISSUES: Unremarkable. OTHER FINDINGS: The patient is status post laminectomy. Degenerative changes are noted of the lower lumbar spine. Hip Injury Course/Dx - Course Course Of Treatment: XR as above. Pt has noted adverse reaction to oxycodone in our system, but iSTOP shows that she was rx'd a prescription for oxycodone 15mg TID #90 on 04/18/[address] Martha Bennett. Pt states it is specifically oxyCOTIN that she has adverse reaction to. I had a long discussion with pt and her family. I offered her referral to Ortho or physical therapy, but she declined these. I strongly encouraged the use of her walker at home and she states she may start using this. I discussed that I cannot increase her pain medication as she is already on high dose for her age and increasing her dosing may increase her fall risk. Pt states she will f/u with PCP. Advised to return or go to the ED if symptoms change or worsen - Differential Dx/Diagnosis Provider Diagnosis: Fall, Bilateral hip pain Discharge ED - Sign-Out/Discharge Documenting (check all that apply): Patient Departure All imaging exams completed and their final reports reviewed: Yes - Discharge Plan Condition: Stable Disposition: HOME Patient Education Materials: Hip Pain (ED) Referrals: Martha Bennett MD [Primary Care Provider] - Additional Instructions: The X-rays of your hip showed arthritis, but no fractures or dislocations. Take your pain medications as prescribed I recommend that you follow up with your primary doctor for further treatment of your ongoing pain. Use your walker at home as needed - Billing Disposition and Condition Condition: STABLE Disposition: Home
[2019-04-26 14:05] VITALS: BP 155/54
== END 2019-04-26 14:56 | disposition home or self-care (01) ==
LOC: UCEAST 13:28
DX: M25.551 Pain in right hip (principal); M25.552 Pain in left hip; M51.36 Other intervertebral disc degeneration, lumbar region; G89.29 Other chronic pain; M54.5 Low back pain; J44.9 Chronic obstructive pulmonary disease, unspecified; I10 Essential (primary) hypertension; Z88.5 Allergy status to narcotic agent; Z87.891 Personal history of nicotine dependence; Z88.2 Allergy status to sulfonamides; W19.XXXA Unspecified fall, initial encounter; Y92.89 Other specified places as the place of occurrence of the external cause
CPT/HCPCS: 73523; 99211; G0463

== ENCOUNTER 2019-07-14 13:09 | Emergency (ER) | payer MEDICAID, MEDICARE ==
--- NOTE | 2019-07-14 13:15 | UC ---
General HPI - HPI Summary HPI Summary: New cat - went down through the register - opened one in kitchen hoping it would come through there. FOot went into register - right foot. C/O right hip pain. No head injury. No LOC. No lightheadedness or dizzy. No issues with foot issues in the past. Sometimes uses a walker at home. C/O right foot pain - up to leg Took 2 hydrocodone. Son had some - took them from him. TOok them around 5 or 6 pm when she fell last night Hip feels better NO recent changes to medications recently No fever. No cough or SOB Patient lives with her son. - History of Current Complaint Stated Complaint: FOOT, LEG INJURY Time Seen by Provider: 07/14/19 13:14 Hx Last Menstrual Period: post menopause - Allergy/Home Medications Allergies/Adverse Reactions: Allergies Allergy/AdvReac Type Severity Reaction Status Date / Time oxycodone [From OxyContin] Allergy Hallucinati Verified 07/14/19 13:21 ons Sulfa (Sulfonamide Allergy Hives Verified 07/14/19 13:21 Antibiotics) Home Medications: Home Medications Quinapril (NF) [Accupril (NF)] 10 mg PO DAILY 08/12/18 [History Confirmed ] celeCOXIB CAP* [Celebrex CAP*] 100 mg PO DAILY 08/12/18 [History Confirmed 07/13] Aspirin EC TAB* [Ecotrin EC Low Dose 81 MG*] 81 mg PO DAILY 12/30/18 [History Confirmed 07/14/19] Hydrochlorothiazide TAB* [Hydrodiuril TAB*] 25 mg PO DAILY 12/30/18 [History Confirmed 07/14/19] Ipratropium Br (Nf)0.03% Nasal [Ipratropium Morse] 2 spray BOTH NARES DAILY [History Confirmed 07/14/19] Levothyroxine TAB* [Synthroid TAB*] 50 mcg PO DAILY 12/30/18 [History Confirmed 07/14/19] Metoprolol Tartrate TAB* [Lopressor TAB*] 12.5 mg PO BID 12/30/18 [History Confirmed 07/14/19] Oxycodone IR 10 MG(NF) 15 mg PO Q4HR PRN 12/30/18 [History Confirmed 07/14/19] Ticagrelor* [Brilinta 90 MG*] 90 mg PO BID 12/30/18 [History Confirmed 07/14/19] Baclofen TAB* [Lioresal TAB*] 5 mg PO BEDTIME PRN 01/06/19 [History Confirmed ] Fluticas/Salmet 115/21 HFA(NF) [Advair HFA 115/21 (NF)] 1 puff INH DAILY [History Confirmed 07/14/19] Rosuvastatin (NF) [Crestor (NF)] 40 mg PO DAILY 01/06/19 [History Confirmed ] traZODone TAB* [Desyrel TAB*] 100 mg PO BEDTIME PRN 01/06/19 [History Confirmed 07/14/19] Isosorbide Mononitrate ER TAB* [Imdur ER TAB*] 30 mg PO DAILY #30 tab.er [Rx Confirmed 07/14/19] Venlafaxine EXT RELEASE CAP* [Effexor Xr CAP*] 150 mg PO DAILY cap.sr 01/07/19 [Rx Confirmed 07/14/19] PMH/Surg Hx/FS Hx/Imm Hx Previously Healthy: No Endocrine History: Diabetes, Dyslipidemia Cardiovascular History: Hypertension, Atrial Fibrillation Respiratory History: COPD - Surgical History Surgical History: Yes Surgery Procedure, Year, and Place: CATARACTS; PARTIAL THYROIDECTOMY; PAVAN; HYSTERECTOMY; T&A; APPENDECTOMY; CYST REMOVED FROM KIDNEY; BACK SURGERY; MELANOMA REMOVED FROM LEFT ARM; NASAL SURGERY; three cardiac stents placed after [place] - Family History Known Family History: Positive: Cardiac Disease - CHF, Other - CANCER - Social History Alcohol Use: None Substance Use Type: None Smoking Status (MU): Former Smoker Type: Cigarettes Amount Used/How Often: 1/2 PPD Length of Time of Smoking/Using Tobacco: 60 years Have You Smoked in the Last Year: Yes When Did the Patient Quit Smoking/Using Tobacco: 2 weeks ago Household Exposure Type: Cigarettes - Immunization History Most Recent Influenza Vaccination: Fall 2018 Most Recent Tetanus Shot: utd Most Recent Pneumonia Vaccination: Within 5 years Review of Systems All Other Systems Reviewed And Are Negative: Yes Physical Exam Triage Information Reviewed: Yes Appearance: Well-Appearing Eyes: Positive: Conjunctiva Clear Musculoskeletal: Positive: Other: - right lower extremity at lower leg and ankle joint, edema and ecchymosis noted. Patient with superficial abrasion over lateral right lower leg about 3 cm. Pain with ROM. Normal cap refill. Pedal pulses palpated Course/Dx - Course Course Of Treatment: This is a 79 yr old with right lower leg and foot pain xray of foot: Negative Xray of leg: complex fracture of distal fibula SPoke with Dr. Cavazos - patient able to weight bear as tolerated. Recommend BEATRIZ wrap and CAM boot both were given Abrasion was cleaned a dressing applied Patient was driven by her son and lives with him. He will be around to help her out. Discussed my concern for prescribing narcotics and recommended trying without them using tylenol and ibuprofen. She is already a high fall risk. Concern with ambulating with a cam boot will put her at even higher risk if taking narcotics. Plan You have a fracture of your lower leg bone: fibula Recommend elevate and ice area Recommend tylenol and/or ibuprofen as needed for pain Recommend follow up with [facility] Dr. Cavazos [phone] - Diagnoses Provider Diagnosis: Fibula fracture Discharge ED - Sign-Out/Discharge Documenting (check all that apply): Patient Departure All imaging exams completed and their final reports reviewed: Yes - Discharge Plan Condition: Fair Disposition: HOME Patient Education Materials: Leg Fracture (ED) Referrals: Martha Bennett MD [Primary Care Provider] - Additional Instructions: You have a fracture of your lower leg bone: fibula Recommend elevate and ice area Recommend tylenol and/or ibuprofen as needed for pain Continue to keep on BEATRIZ wrap and use CAM boot when ambulating/walking Recommend follow up with [facility] orthopedics Dr. Cavazos [phone] - Billing Disposition and Condition Condition: FAIR Disposition: Home
[2019-07-14 13:21] VITALS: BP 119/74
--- OUTSIDE RECORDS SUMMARY | 2019-07-14 13:52 | XMS REPORT | Summary of Care ---
:1940 Author Organization [facility] Address [address] [address] Care Team Providers Name Role Phone Martha Bennett MD Primary Care Provider Reason for Referral Refer to Department Only (Routine) Status Reason Specialty Diagnoses / Referred By Referred To Procedures Contact Contact Authorized Vascular Surgery Diagnoses Claudication of both lower extremities (HCC) PAD (peripheral artery disease) ([facility]) Eric Garcia MD [address] [place] [address] Reason for Visit Reason Comments Follow Up 4 mo f/u CAD, Rheumatic Mitral Stenosis. Patient reports she fell in her bath tub this morning, as well as 3 (approx) other times this month. 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 (HCC) (Primary Dx); Cardiology MD Eric Rheumatic mitral stenosis; [address] [facility] [address] [facility] Aortic valve stenosis, etiology of cardiac valve disease unspecified; [place], [place] [id number] [place] [address] Chronic heart failure with preserved ejection fraction (HCC); [phone] Claudication of both lower extremities (HCC); Falls frequently; PAD (peripheral artery disease) ([facility]) Allergies Active Allergy Reactions Severity Noted Date Comments Oxycontin Unknown Reaction 01/27/2018 Sulfa Antibiotics Rash 06/16/2012 Skin burning and itching documented as of this encounter (statuses as of 06/10/2019) Medications Medication Sig Dispensed Refills Start Date End Date Status venlafaxine Take 150 mg 0 Active (EFFEXOR XR) 150 MG by mouth Oral CAPSULE SR 24 EVERY HR TWENTY-FOUR HOURS. albuterol Take 2.5 mg 0 Active (PROVENTIL, by VENTOLIN) (2.5 inhalation. MG/3ML) 0.083% Inhalation Nebu Soln ipratropium [place] 2 0 Active (ATROVENT) 0.03 % Sprays in Nasal Solution nose. oxycodone, Take 15 mg 0 Active immediate release, by mouth (OXY-IR) 15 MG Oral EVERY FOUR Tab HOURS NEEDED. aspirin 81 MG Oral Take 1 Tab 30 Tab 0 12/28/2018 Active Tab EC by mouth DAILY. Omeprazole delayed Take 20 mg 0 Active rel cap 20 MG Oral by mouth CAPSULE DELAYED DAILY. RELEASE TRAZODONE HCL PO Take 100 mg 0 Active by mouth EVERY BEDTIME NEEDED. levothyroxine Take 1 Tab 30 Tab 0 01/02/2019 Active (SYNTHROID) 75 MCG by mouth Oral Tab BEFORE BREAKFAST. Rosuvastatin TAKE 1 90 Tab 3 01/02/2019 Active Calcium (CRESTOR) TABLET BY 40 MG Oral Tab MOUTH DAILY Docusate Sodium 100 Take 1 Tab 0 Active MG Oral Tab by mouth TWICE DAILY. celeCOXIB Take 100 mg 0 Active (CELEBREX) 100 MG by mouth Oral Cap TWICE DAILY. Baclofen 5 MG Oral Take 1 Tab 0 Active Tab by mouth EVERY BEDTIME NEEDED. isosorbide Take 1 Tab 90 Tab 3 02/25/2019 Active MONOnitrate (IMDUR) by mouth 30 MG Oral TABLET DAILY. 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 Rheumatic mitral stenosis clopidogrel Take 1 Tab 90 Tab 3 03/30/2019 Active (PLAVIX) 75 MG Oral by mouth Tab DAILY. Cyanocobalamin Take 5,000 0 Active (B-12 PO) mcg by mouth DAILY. metoprolol Take 0.5 90 Tab 0 06/10/2019 Active (LOPRESSOR) 25 MG Tabs by Oral mouth TWICE TabIndications: DAILY. Rheumatic mitral stenosis oxybutynin Take 5 mg by 0 Discontinued (DITROPAN) 5 MG mouth TWICE 0 (Patient stopped Oral Tab DAILY. the medication) Cyanocobalamin Take 1 Tab 0 Discontinued (B-12) 500 MCG Oral by mouth 0 (Dose Adjustment) Tab DAILY. ondansetron Take 4 mg by 0 Discontinued (ZOFRAN) 4 MG Oral mouth EVERY 0 (Patient stopped Tab EIGHT HOURS the medication) NEEDED. Melatonin 10 MG Take 1 Cap 0 Discontinued Oral Cap by mouth 0 (Patient stopped EVERY the medication) BEDTIME. methocarbamol Take 500 mg 0 Discontinued (ROBAXIN) 500 MG by mouth 0 (Patient stopped Oral Tab EVERY the medication) BEDTIME. metoprolol Take 1 Tab 180 Tab 3 02/25/2019 Discontinued (LOPRESSOR) 25 MG by mouth 0 (Dose Adjustment) Oral TWICE DAILY. TabIndications: Rheumatic mitral stenosis documented as of this encounter (statuses as of 06/10/2019) Active Problems Problem Noted Date Mixed hyperlipidemia 12/25/2018 NSTEMI (non-ST elevated myocardial infarction) 12/25/2018 Hypertension 12/25/2018 Dementia 12/25/2018 Depression 12/25/2018 GERD (gastroesophageal reflux disease) 12/25/2018 COPD (chronic obstructive pulmonary disease) 12/25/2018 Coronary artery disease 12/25/2018 Spondylosis without myelopathy or radiculopathy, lumbar region 04/23/2018 Trochanteric bursitis of both hips 03/07/2018 Overview: Added automatically from request for surgery [id number] Spondylosis of lumbar region without myelopathy or radiculopathy 01/27/2018 Spondylosis of cervical region without myelopathy or radiculopathy 01/27/2018 Other and combined forms of senile cataract 01/09/2005 documented as of this encounter (statuses as of 06/10/2019) Social History Tobacco Use Types Packs/Day Years Used Date Former Smoker Cigarettes 1.5 49 Quit: 02/09/2019 Smokeless Tobacco: Never Used Alcohol Use Drinks/Week oz/Week Comments No Sex Assigned at Date Recorded Not on file documented as of this encounter Last Filed Vital Signs Vital Sign Reading Time Taken Comments Blood Pressure 110/50 06/10/2019 11:02 AM EDT Pulse 44 06/10/2019 11:02 AM EDT Temperature - - Respiratory Rate - - Oxygen Saturation - - Inhaled Oxygen Concentration - - Weight 64.4 kg (142 lb) 06/10/2019 11:02 AM EDT Height - - Body Mass Index 24.37 03/30/2019 9:58 AM EST documented in this encounter Patient Instructions Patient InstructionsEric Garcia MD - 06/10/2019 11:00 AM EDT DECREASE metoprolol to 12.5mg (1/2 tablet) twice daily. No other medication changes today. Speak with Dr. Bennett about possible physical therapy evaluation. I've referred you to vascular surgery to further evaluate your leg pains and the blood flow to your legs. Schedule an appointment to have the Holter monitor placed in about 2 weeks. Follow up with me or Joselin Man in 3-4 months. documented in this encounter Progress Notes Eric Garcia MD - 06/10/2019 11:00 AM EDT [facility] Patient: Shu Nagy Date of : 1940 Date of Service: 06/10/2019 REFERRING PRACTITIONER: Self-Referred PRIMARY CARE PROVIDER: Martha Bennett Chief Complaint: Chief Complaint Patient presents with ? Follow Up 4 mo f/u CAD, Rheumatic Mitral Stenosis. Patient reports she fell in her bath tub this morning, aswell as 3 (approx) other times this month. History of Present Illness: We had the pleasure of seeing Shu Nagy today at the [facility]. She is a 79-y.o. female with HTN, hyperlipidemia, COPD, chronic back pain, mild dementia, DM, PAD, and rheumatic mitral stenosis/regurgitation as well as mild aortic stenosis. She alsohas multivessel CAD and had NSTEMI 11/2018. She was evaluated by CTS but d/t her high surgical risk she underwent PCI with HITESH to the distal RCA, D1, and mLAD on 12/25/2018. Ms. Nagy returns to cardiology clinic today for routine f/u. Since her last visit with me in January she was seen at the end of March by Joselin Man. At that visit she continued to have significant dyspnea so her Brilinta was changed to Plavix to see if that helped. She had also ordered a Holter monitor to evaluate her dizziness, but the patient never completed that. From a symptom standpoint now, she reports that she's been having a lot of falls over the past month(~4 or so). She hasn't had syncope or significant dizziness/lightheadedness but says that she losesher balance easily. She has some significant LE weakness and says that her L leg aches in her calf and thigh if she walks any distance. No head injuries or significant injuries from the falls. Doesn't climb stairs but says that she can walk about intermediate down a grocery aisle before having to stop d/t leg and hip pain. She says that her breathing has improved since switching off Brilinta, and she denies CP/ pressure. At this point her leg pain is more limiting than dyspnea. Denies any palpitations. No orthopnea but can't lie on her back; no paroxysmal dyspnea or lower extremity edema. Not smoking. Patient Active Problem List Diagnosis ? Other and combined forms of senile cataract ? Spondylosis of lumbar region without myelopathy or radiculopathy ? Spondylosis of cervical region without myelopathy or radiculopathy ? Trochanteric bursitis of both hips ? Spondylosis without myelopathy or radiculopathy, lumbar region ? Mixed hyperlipidemia ? NSTEMI (non-ST elevated myocardial infarction) ([facility]) ? Hypertension ? Dementia ([facility]) ? Depression ? GERD (gastroesophageal reflux disease) ? COPD (chronic obstructive pulmonary disease) ([facility]) ? Coronary artery disease Past Medical History: Diagnosis Date ? Allergic rhinitis ? Chronic pharyngitis ? Diabetes mellitus ([facility]) ? GERD (gastroesophageal reflux disease) ? Headache disorder ? NSTEMI (non-ST elevated myocardial infarction) ([facility]) 12/25/2018 ? 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 Problems with hearing ? Spondylosis of lumbar region without myelopathy or radiculopathy 2017 ? Unspecified otitis media Past Surgical History: Procedure Laterality Date ? ANGIOPLASTY STENT CORONARY N/A 12/26/2018 Procedure: ANGIOPLASTY STENT CORONARY; Surgeon: Champ Fuentes MD; Location: [facility] CCL ? CATHETERIZATION HEART LEFT N/A 01/01/2019 Procedure: CATHETERIZATION HEART LEFT; Surgeon: Champ Fuentes MD; Location: [facility] ? ECHO, TRANS ESOPHOGEAL N/A 12/26/2018 Procedure: ECHO, TRANS ESOPHOGEAL; Surgeon: Paco Bradley MD; Location: [facility] ? IN I&D, POST SPINE, LUMB/SACR/LUMBOSAC ? IN REMOVE TONSILS/ADENOIDS,12+ Y/O Allergies Allergen Reactions ? Oxycontin Unknown Reaction ? Sulfa Antibiotics Rash Skin burning and itching Current Outpatient Medications Medication Sig ? albuterol (PROVENTIL, VENTOLIN) (2.5 MG/3ML) 0.083% Inhalation Nebu Soln Take 2.5 mg by inhalation. ? aspirin 81 MG Oral Tab EC Take 1 Tab by mouth DAILY. ? Baclofen 5 MG Oral Tab Take 1 Tab by mouth EVERY BEDTIME NEEDED. ? celeCOXIB (CELEBREX) 100 MG Oral Cap Take 100 mg by mouth TWICE DAILY. ? clopidogrel (PLAVIX) 75 MG Oral Tab Take 1 Tab by mouth DAILY. ? Cyanocobalamin (B-12 PO) Take 5,000 mcg by mouth DAILY. ? Docusate Sodium 100 MG Oral Tab Take 1 Tab by mouth TWICE DAILY. ? ipratropium (ATROVENT) 0.03 % Nasal Solution [place] 2 Sprays in nose. ? isosorbide MONOnitrate (IMDUR) 30 MG Oral TABLET SR 24 HR Take 1 Tab by mouth DAILY. ? levothyroxine (SYNTHROID) 75 MCG Oral Tab Take 1 Tab by mouth BEFORE BREAKFAST. ? metoprolol (LOPRESSOR) 25 MG Oral Tab Take 0.5 Tabs by mouth TWICE DAILY. ? Omeprazole delayed rel cap 20 MG Oral CAPSULE DELAYED RELEASE Take 20 mg by mouth DAILY. ? oxycodone, immediate release, (OXY-IR) 15 MG Oral Tab Take 15 mg by mouth EVERY FOUR HOURS NEEDED. ? Rosuvastatin Calcium (CRESTOR) 40 MG Oral Tab TAKE 1 TABLET BY MOUTH DAILY ? torsemide (DEMADEX) 20 MG Oral Tab Take 1 Tab by mouth DAILY. ? TRAZODONE HCL PO Take 100 mg by mouth EVERY BEDTIME NEEDED. ? venlafaxine (EFFEXOR XR) 150 MG Oral CAPSULE SR 24 HR Take 150 mg by mouth EVERY TWENTY-FOURHOURS. No current facility-administered medications for this visit. No family history on file. Social History Socioeconomic History ? Marital status: Spouse name: Not on file ? Number of children: Not on file ? Years of education: Not on file ? Highest education level: Not on file Occupational History ? Not on file Social Needs ? Financial resource strain: Not on file ? Food insecurity Worry: Not on file Inability: Not on file ? Transportation needs Medical: Not on file Non-medical: Not on file Tobacco Use ? Smoking status: Former Smoker Packs/day: 1.50 Years: 49.00 Pack years: 73.50 Types: Cigarettes Last attempt to quit: 02/09/2019 Years since quittin.3 ? Smokeless tobacco: Never Used Substance and Sexual Activity ? Alcohol use: No ? Drug use: No ? Sexual activity: Not on file Lifestyle ? Physical activity Days per week: Not on file Minutes per session: Not on file ? Stress: Not on file Relationships ? Social connections Talks on phone: Not on file Gets together: Not on file Attends druze service: Not on file Active member of club or organization: Not on file Attends meetings of clubs or organizations: Not on file Relationship status: Not on file ? Intimate partner violence Fear of current or ex partner: Not on file Emotionally abused: Not on file Physically abused: Not on file Forced sexual activity: Not on file Other Topics Concern ? Not on file Social History Narrative ? Not on file Review of Systems - Negative except as noted in HPI and with chronic back pain. Physical Exam: Vitals: 06/10/19 1102 BP: 110/50 Pulse: (!) 44 Weight: 142 lb (64.4 kg) Body mass index is 24.37 kg/m. General: Thin, alert 79-y.o. female in NAD HEENT: anicteric, MMM, no E/E OP, conj pink Neck: JVP approx 5-6 cm above RA, no carotid bruits or LAD CV: Regular and lavern, normal S1/S2. 2/6 early-peaking crescendo-decrescendo systolic murmur at RUSB. Separate 2/6 holosystolic and 1/6 diastolic murmur appreciated at apex similar to prior. No rubs, gallops, or clicks. Pulm: CTA bilaterally without wheezes, rhonchi, or rales. No increased work of breathing at rest. Abd: soft, NT, ND, +BS. No appreciable pulsatile masses or bruits. Ext: no lower extremity edema, no cyanosis, no cords, redness, or warmth. Feet warm but pedal pulses non-palpable on left. Neuro: no gross focal deficits but has some mild memory deficits that are evident. Able to climb onto exam table with minimal assistance. Skin: no visible lesions Labs: Lab Results Component Value Date NA 138 03/30/2019 K 3.5 03/30/2019 CL 101 03/30/2019 CO2 29 03/30/2019 GLUCOSE 89 03/30/2019 BUN 26 (H) 03/30/2019 CREATININE 1.0 03/30/2019 CALCIUM 9.5 03/30/2019 TP 7.5 02/16/2019 ALBUMIN 3.9 02/16/2019 AST 26 02/16/2019 ALT 20 02/16/2019 ALK 115 02/16/2019 TBILI 0.4 02/16/2019 EGFR 54 03/30/2019 Lab Results Component Value Date NT PRO BNP 1,060 (H) 03/30/2019 Lab Results Component Value Date CHOL 127 02/16/2019 TRIG 102 02/16/2019 HDL 52 02/16/2019 LDL 55 02/16/2019 LDLHDLRATIO 1.1 02/16/2019 CHOLHDLRATIO 2.4 02/16/2019 Cardiac Studies[place] [facility] [place]: -LVEF 55-60%. -Mild-moderate LVH -Moderate MS (MVA by PHT 1.5cm2 and by continuity 1.3cm2) -Mild Limited TTE 01/02/2019: FINAL IMPRESSION: Limited study. Global systolic function is normal with estimated LV EF 60-65 %. No regional wall motion abnormalities. No pericardial effusion. Left Heart Cath 01/01/2019: Patent first diagonal, mid LAD and distal RCA stents. Non-ST elevation IN with no clear culprit identified Patent first [...] aortic stenosis. Mild to moderate aortic regurgitation. ABIs 12/28/18: IMPRESSIONS: PVD ? PVRs of the right thigh, calf, ankle and metatarsal are normal and moderate in the digit. ? Doppler of the right DPA is biphasic and triphasic in the DRILLING AND PRODUCTION SUPERINTENDENT. ? Rt VERENICE 0.97 ? PVRs of the left thigh are normal, moderate in the calf and ankle, severe in the metatarsal and absent in the digit. ? Doppler of the left DRILLING AND PRODUCTION SUPERINTENDENT is biphasic and absent in the DPA. ? Lt VERENICE 0.49 Assessment & Plan: Shu Nagy is a 79-y.o. female with HTN, hyperlipidemia, COPD, chronic back pain , mild dementia, DM, PAD, and rheumatic mitral stenosis/regurgitation as well as mild aortic stenosis. She also has multivessel CAD and had NSTEMI 11/2018. She was evaluated by CTS but d/t her high surgical risk she underwent PCI with HITESH to the distal RCA, D1, and mLAD on 12/25/2018. ICD-9-CM ICD-10-CM 1. Coronary artery disease of tunica-biloxi artery of tunica-biloxi heart with stable angina pectoris ([facility]) 414.01 I25.118 413.9 2. Rheumatic mitral stenosis 394.0 I05.0 metoprolol (LOPRESSOR) 25 MG Oral Tab 3. Aortic valve stenosis, etiology of cardiac valve disease unspecified 424.1 I35.0 4. Chronic heart failure with preserved ejection fraction ([facility]) 428.9 I50.32 5. Claudication of both lower extremities ([facility]) 443.9 I73.9 REFER TO VASCULAR SURGERY 6. Falls frequently V15.88 R29.6 7. PAD (peripheral artery disease) ([facility]) 443.9 I73.9 REFER TO VASCULAR SURGERY 1. Coronary Artery Disease, s/p NSTEMI and Multivessel PCI: No significant angina at this time despite her residual severe diag and OM1 disease which are not amenable to revascularization. I recommend the following: Antiplatelets: Continue aspirin 81 mg daily for life, and Plavix x at least one year (through December 2019). Had significant dyspnea from Brilinta. Statin: Cont Crestor 40mg daily. LDL 55 in January 2019. Beta-brenton: HR has been quite low on the current dose of metoprolol, so I'm decreasing the dose to 12.5mg BID and will check a Holter in a couple of weeks on that dose. May need to stop the BBaltogether. BEATRIZ-inhibitor/ARB: Off quinapril to allow BP room for diuretics. Anti-Anginals: Cont low dose Imdur 2. Mixed Valvular Disease: Has mod-severe rheumatic MS with significant MR as well as mild . Unfortunately, her MR will probably preclude balloon valvuloplasty, so we'll continue to treat her MS medically since her MVA is 1.3- 1.5cm2 by echo estimates. I'm decreasing her metoprolol to 12.5mg BID b/c I think her HR is too slow at this point. Checking a Holter as noted above. Cont torsemide 20mg daily. 3. PAD/Claudication: Has fairly limiting claudication in her LLE at this point, and her ABIs were quite abnormal in November. Given her other comorbidities, I 'm not sure if any vascular interventionswould be possible, but I've referred her to vascular surgery for further evaluation and consideration of other management options. 4. Falls: Related to balance/strength issues rather than syncope or near syncope. She's seeing her PCP later this week and I encouraged her to discuss this with Dr. Bennett. PT evaluation and possiblyeven neuro eval may be warranted but I'll defer to her regarding this. Thank you for allowing me to participate in the care of Shu Nagy. We will plan on f/u in our officein ~3-4 months with me or Joselin. If you have any questions or concerns please feel free to call ouroffice at . Eric Garcia MD, 06/10/2019, 11:50 This note was created using my previous note as a template; changes were made where appropriate, andall information in the current note is up to date to the best of my knowledge. documented in this encounter Plan of Treatment Date Type Specialty Care Team Description 06/16/2019 Office Visit Vascular Surgery Cesar Tom MD [address] [address] [phone] 06/24/2019 Nurse/Clinical Support Internal Medicine 09/07/2019 Office Visit Cardiology Joselin Man PA [address] [address] [phone] Name Type Priority Associated Diagnoses Order Schedule REFER TO VASCULAR Referral Routine Claudication of both Expected: 2019, SURGERY lower extremities (HCC) Expires: 06/09/2020 PAD (peripheral artery disease) (HCC) Health Maintenance Due Date Last Done Comments MEDICARE ANNUAL WELLNESS VISIT 1940 DTaP/Tdap/Td Vaccines (1 - Tdap) 1952 DEPRESSION SCREENING 1953 HIV SCREENING 1956 ZOSTER IMMUNIZATION SERIES (1 of 2) 1991 FALL RISK ASSESSMENT 2006 OSTEOPOROSIS SCREENING 2006 [...] of this encounter Implants Implanted Type Area Drying Supervisor Device Shelf Model / Identifier Expiration Serial / Lot Date 2.75 X 40 Orsiro N/A: RCA [id number] / Implanted: Qty: 1 on 12/26/2018 by Champ Fuentes MD at [facility] / [id number] 2.5 X 13 Orsiro N/A: Diagonal [id number] / Implanted: Qty: 1 on 12/26/2018 by Chapm Fuentes MD at [facility] / [id number] 3.0 X 15 Orsiro N/A: [id number] / Implanted: Qty: 1 on 12/26/2018 by Champ Fuentes MD at [facility] / [id number] documented as of this encounter Results Not on filedocumented in this encounter Visit Diagnoses Diagnosis Coronary artery disease of tunica-biloxi artery of [place] heart with stable angina pectoris (HCC) Rheumatic mitral stenosis Mitral stenosis Aortic valve stenosis, etiology of cardiac valve disease unspecified Chronic heart failure with preserved ejection fraction (HCC) Claudication of both lower extremities (HCC) Falls frequently Personal history of fall PAD (peripheral artery disease) (HCC) Peripheral vascular disease, unspecified documented in this encounter Insurance Payer Benefit Plan / Subscriber ID Effective Dates Phone Address Type Group MEDICARE MEDICARE PART A [id number] 2006-Present Medicare & B MEDICAID [facility] [id number] 2016-Present Medicaid [place] MEDICAID Guarantor Name Account Type Relation to Date of Phone Billing Patient Address [place] Personal/Family 1940 [address] (Home) [place], [place] [phone] [id number] (Work) documented as of this encounter Advance [...]
--- OUTSIDE RECORDS SUMMARY | 2019-07-14 13:52 | XMS REPORT | Continuity of Care Document ---
:1940 External Reference #:[id number] Author Name Martha Bennett MD, PHD (transmitted by agent of provider Cassidy Hall ) Address [address], [address] [place] [address] Care Team Providers Name Role Phone Martha Bennett MD, PHD - Family Care Team Information Ux Consultant [phone] Medicine Haylee Santiago Leasing Agent [place] - Care Team Information Ux Consultant [phone] Specialist Eric Garcia MD Care Team Information Ux Consultant Unavailable Problems Active Problems Provider Date Hyperlipidemia Martha [...] Denies alcohol use Tobacco Use Start: Unknown End: Patient is a former smoker Pt states she quit in January Smoking Status Reviewed: 06/12/19 Patient is a former smoker Pt states she quit in January 2019 Allergies, Adverse Reactions, Alerts Active Allergies Reaction Severity Comments Date Oxycontin 01/07/2018 Medications Active Medications SIG Qnty Indications Ordering Date Provider Maxwell 1/2-1 tab by 7tabs G47.00 Martha Bennett, 06/12/2019 10mg Tablets mouth at PHD KAREN bedtime Tylenol 8 Hour 1 tab by mouth 180tabs Martha Bennett, 05/06/2019 Arthritis Pain twice a day as PHD KAREN 650mg needed Tablets ER Levothyroxine Sodium Take 1 Tablet 90tabs Martha Bennett, 03/11/2019 By Mouth Every PHD KAREN 75mcg Tablets Day Metoprolol Succinate Take 1/2 Tablet 90Tablet Martha Bennett, 03/02/2019 ER By Mouth Every PHD KAREN 25mg Tablets ER 24HR Morning Evening Rosuvastatin Calcium Take 1 Tablet 90Tablet Martha Bennett, 03/02/2019 5mg By Mouth Every PHD KAREN Tablets Day Baclofen Take 1 Tablet 30tabs Martha Bennett, 02/27/2019 5mg Tablets By Mouth AT PHD KAERN Bedtime as Needed Torsemide 1 tab by mouth 90tabs Martha Bennett, 02/25/2019 20mg Tablets every morning , PHD [facility] Aspirin Adult Low 1 tab by mouth 90units I25.119 Martha Bennett, Dose every day , PHD 81mg Chewtabs E11.9 Z72.0 Omeprazole Take 1 Capsule By 90Caps Martha Bennett, 02/23/2019 20mg Mouth Every Day , PHD Capsules DR Celecoxib Take 1 Capsule By 180Caps Martha Bennett, 02/23/2019 100mg Mouth Twice A Day as , PHD Capsules Needed For Pain And Swelling Alcohol Prep use every day with 100units Martha Bennett, 02/05/2019 70% Pads glucometer , PHD fingersticks 1-3 times a day Freestyle Lite Test 1-3 times a day as 100units E11.9 Martha Bennett, 09/2018 directed , PHD Strips Freestyle Lancets to test 1-3 times a 100units E11.9 Martha Bennett, 09/2018 day as directed. , PHD [facility] Freestyle [place] test 1-3 times a day 1units E11.9 Martha Bennett, 02/05 Lite as directed , PHD W/Device Kit Nitrostat 1 tab sl every 5 josé miguel 30tabs Martha Bennett, 01/13/2019 0.4mg x3 as needed for , PHD Tablets Sub chest pain. Venlafaxine HCL ER 1 by mouth every day 90caps I25.119 Martha Bennett, , PHD 150mg Caps ER 24HR F32.0 Docu Soft 1 caps by mouth 60caps K59.03 Martha Bennett MD, 01/13/2019 100mg twice a day PHD Capsules Walker Two wheeled walker 1units M19.90 Martha Bennett MD, 01/12/2019 [facility] standard size. PHD R26.81 S22.009G Brilinta take 1 tab by mouth 60tabs Martha Bennett, 12/27/2018 90mg Tablets twice daily. , PHD Oxycodone HCL 1 tab by mouth three 90tabs Martha Bennett, 12/17/2018 15mg times a day as needed , PHD Tablets Back Support Women Elastic 1units M54.6 Martha Bennett, 06/26/2018 [facility] Adjustable Shoulder , PHD Brace Waist Belt Back Support Posture Corrector,Posture Corrector, Shoulder Support Brace M54.5 S22.000D Wheelchair [facility] M54.5 Martha Bennett MD, PHD M54.6 Albuterol Sulfate Take 2.5 mg by Unknown inhalation. (2.5mg/3ML) 0.083% Nebulizer Ipratropium [place] 2 Sprays in nose. Unknown 0.03% Solution Isosorbide Mononitrate 1 by mouth every day 30tabs Martha Bennett, ER MD PHD 30mg Tablets ER 24HR Plavix 1 by mouth every day Eric Garcia 75mg Tablets R, History Medications Oxybutynin Chloride by mouth twice 60tabs R35.0 Martha Bennett, 2018 - a day , PHD 06/12/2019 5mg Tablets R30.0 [facility] Melatonin Take 1 Capsule By 90CapMartha Christie, 02/23/2019 - 10mg Mouth Every Day AT MD PHD 06/12/2019 Capsules Bedtime as Needed Trazodone HCL Take 1 Tablet By 90tabs Martha Bennett, 02/16/2019 - 100mg Mouth AT Bedtime MD PHD 06/12/2019 Tablets as Needed For Sleep Potassium Chloride 1 tab by mouth 90tabs Martha Bennett, 02/06/2019 - Virgie ER every day with , PHD 02/06/2019 10Meq furosemide Tablets ER Potassium Citrate take by mouth 90tabs Martha Bennett, 01/30/2019 - ER every morning MD PHD 01/30/2019 5Meq (540 mg) Tablets ER Melatonin 1 caps by mouth at 30caps Martha Bennett, 01/28/2019 - 10mg bedtime as needed , PHD 06/12/2019 Capsules Metoprolol 1 tab by mouth 60tabs Martha Bennett, 01/28/2019 - Succinate ER twice a day , PHD 03/02/2019 25mg Tablets ER 24HR B12 Fast Dissolve tab by mouth every 30tabs M79.606 Martha Bennett, 01/28 - day , PHD 06/12/2019 5000mcg Tablets Dispers Melatonin Plus 1 tab by mouth at 30tabs Martha Bennett, 01/26/2019 - L-Theanine bedtime as needed , PHD 01/28/2019 10-5.5mg Tablets Baclofen Take 1 Tablet By 30tabs Martha Bennett, 01/23/2019 - 5mg Mouth AT Bedtime , PHD 02/06/2019 Tablets as Needed Ondansetron take one tablet by 60tabs Martha Bennett, 01/16/2019 - 4mg mouth every 12 , PHD 06/12/2019 Tablets Dispers hours as needed for nausea with morphine Morphine Sulfate ER 1 tabs by mouth 60tabs M54.6 Martha Bennett, 2018 - twice a day , PHD 05/06/2019 15mg Tablets ER M54.5 I25.119 Methocarbamol 1 tabs by mouth 14tabs M54.5 Martha Bennett, 01/13/2019 - 500mg at bedtime , PHD 03/03/2019 Tablets M79.606 Zohydro [...] - mouth Twice 01/28/2019 25mg Tablets Daily. Magnesium Gluconate tab by mouth 60tabs M79.606 Martha Bennett, 2018 - twice a day , PHD 01/13/2019 500mg Tablets muscle spasms B12 Fast Dissolve tab by mouth 90tabs M79.606 Martha Bennett, 12/17/2018 - every day , PHD 01/13/2019 5000mcg Tablets Dispers Nac 600 1 cap by mouth 90caps F32.0 Martha Bennett, 12/17/2018 - 600mg three times a , PHD 01/13/2019 Capsules day after meals Oxybutynin Chloride by mouth twice a 60tabs Martha Bennett, 12/17/2018 - day , PHD 01/13/2019 5mg Tablets Advair HFA 1 puffs inhaled 12gm J44.9 Martha Bennett, 12/17/2018 - twice a day , PHD 01/30/2019 115-21mcg/Act Aerosol Quinapril HCL 1 tab by mouth 90tabs Martha Bennett, 12/17/2018 - 20mg every day , PHD 12/17/2018 Tablets Quinapril HCL 1 by mouth every Martha Bennett, 12/17/2018 - 10mg day , PHD 01/13/2019 Tablets Immunizations CPT Code Status Date Vaccine Lot # [id number] Given 12/17/2018 Influenza Virus Vaccine, Quadrivalent, 36 Mos+, .5ML Vital Signs Date Vital Result Comment 06/12/2019 3:08pm BP Systolic Sitting Right Arm 101 mmHg BP Diastolic Sitting Right Arm 63 mmHg Body Temperature 98.2 F Heart Rate 66 /min Height 63 inches 5'3" Weight 142.00 lb BMI (Body Mass Index) 25.2 kg/m2 BSA (Body Surface Area) 1.67 m2 [place] body weight in kilograms 52 kg O2 % BldC Oximetry 94 % ra 01/13/2019 2:42pm BP Systolic 99 mmHg BP Diastolic 62 mmHg Body Temperature 97.1 F Heart Rate 82 /min Respiratory Rate 20 /min Height 63 inches 5'3" Weight 130.00 lb BMI (Body Mass Index) 23.0 kg/m2 BSA (Body Surface Area) 1.61 m2 [place] body weight in kilograms 52 kg O2 % BldC Oximetry 99 % Results Test Acquired Date Facility Test Result H/L Range Note Laboratory test 06/12/2019 [facility] Thyroid Stim 0.35 uIU/mL Normal 0.30- 4.20 1 finding [address] [place], [place] [address] [phone] Free T4 1.18 ng/dL Normal 0.76-1.46 Vitamin D,25-Hydroxy <pending> Sedimentation Rate 3 mm/hr Normal 2-55 2 Vitamin B12 And 06/12/2019 [facility] Vitamin B12 907 pg/mL Normal 193-[address] [place], [place] [id number] [phone] Folic Acid 8.1 ng/mL Normal 3.1-17.5 Glycohemoglobin 06/12/2019 [facility] Glycohemoglobin 5.8 % Normal 4.2-6.3 3 A1c [address] [facility] (A1c) [place], [place] [id number] [phone] eAG 120 mg/dL Comprehensive 06/12/2019 [facility] Glucose 84 mg/dL Normal 74-106 Metabolic Panel [address] [place], [place] [id number] [phone] BUN 18 mg/dL Normal 7-18 Creatinine 1.0 mg/dL Normal 0.6-1.3 Glom Filtration Rate, Estimate 57 mL/min >60 If >60 mL/min >60 4 BUN/Creat 18.0 ratio Sodium 142 mmol/L Normal 136-145 Potassium 3.6 mmol/L Normal 3.5-5.1 Chloride 107 mmol/L Normal 98-107 Carbon Dioxide 32 mmol/L Normal 21-32 Anion Gap 3 mEq/L Low 8-16 Calcium 8.7 mg/dL Normal 8.5-10.1 Total Protein 7.5 g/dL Normal 6.4-8.2 Albumin 3.5 g/dL Normal 3.4-5.0 Globulin 4.0 g/dL Normal 1.9-4.3 Alb/Glob 0.9 ratio Bilirubin,Total 0.2 mg/dL Normal 0.2-1.0 5 Sgot/Ast 10 U/L Low 15-37 6 SGPT/Alt 14 U/L Normal 12-78 Alkaline Phosphatase 98 U/L Normal 45-117 Microalbumin,Random 06/12/2019 [facility] Microalbumin,Urine 6.7 < Urine [address] mg/L 20.0 [place] [address] [phone] BMP W/Egfr 01/30/2019 [facility] Sodium 142 Normal 135-2 [phone] mmol/ 45 L Potassium 3.8 mmol/L Normal 3.5-5.0 Chloride 109 mmol/L Normal 101-111 Co2 Carbon Dioxide 29 mmol/L Normal 22-32 Anion Gap 4 mmol/L Normal 2-11 Glucose 116 mg/dL High 70-100 Blood Urea Nitrogen 17 mg/dL Normal 6-24 Creatinine 0.82 mg/dL Normal 0.51-0.95 BUN/Creatinine Ratio 20.7 High 8-20 Calcium 8.9 mg/dL Normal 8.6-10.3 Egfr Non- 67.6 >60 Egfr 81.8 >60 7 Laboratory test 01/26/2019 [facility] Troponin I 0.03 ng/mL <0.04 8 finding [phone] Laboratory test 01/25/2019 [facility] Troponin I 0.03 ng/mL <0.04 9 finding [phone] B Type Natriuretic Peptide 243 pg/mL High <=100 Inr/Protime 01/25/2019 [facility] Inr 0.97 Normal 0.82-1.09 10 [phone] Laboratory test 01/25/2019 [facility] Lactic Acid 1.0 Normal 0.5-2.0 11 finding [phone] mmol/L Comp Metabolic 01/25/2019 [facility] Sodium 141 Normal 135-145 Panel [phone] mmol/L Chloride 107 mmol/L Normal 101-111 Co2 Carbon [...] Egfr Non- 65.7 >60 Egfr 79.6 >60 12 Potassium 2.6 mmol/L Critical low 3.5-5.0 13 Anion Gap 7 mmol/L Normal 2-11 Laboratory 01/06/2019 [facility] Troponin I 0.09 Critical <0.04 14 test finding [phone] ng/mL high CKMB 01/06/2019 [facility] CKMB ng/mL 1.2 Normal 0.6-6.3 [phone] ng/mL Laboratory 01/06/2019 [facility] Magnesium 1.6 Low 1.9-2.7 test finding [phone] mg/dL Creatine Kinase 24 U/L Normal 10-223 Troponin I 0.10 ng/mL Critical high <0.04 15 CBC Auto 01/06/2019 [facility] White Blood 13.3 10^3/ uL High 3.5-10.8 Diff [phone] Count Red Blood Count 4.51 10^6/uL Normal 3.70-4.87 [...] Blood Cells % 0.0 Laboratory 01/06/2019 [facility] B Type 157 pg/mL High <=100 test finding [phone] Natriuretic Peptide Inr/Protime 01/06/2019 [facility] Inr 1.01 Normal 0.82-1.0 16 [phone] Laboratory 01/06/2019 [facility] Activated 34.5 Normal 26.0-38. test finding [phone] Partial seconds 0 Thrombo Time Comp Metabolic 01/06/2019 [facility] Sodium 132 mmol/ L Low 135-145 Panel [phone] Potassium 3.4 mmol/L Low 3.5-5.0 Chloride 98 [...] Egfr Non- 33.2 >60 Egfr 40.1 >60 17 Laboratory 12/30/2018 [facility] Troponin I 2.74 Critical <0.04 18 test finding [phone] ng/mL high CBC Auto Diff 12/30/2018 [facility] White Blood 7.8 Normal 3.5-10.8 [phone] Count 10^3/uL Red Blood Count 3.98 10^6/uL [...] Nucleated Red Blood Cells % 0.0 Inr/Protime 12/30/2018 [facility] Inr 1.04 Normal 0.82-1.09 19 [phone] Laboratory test 12/30/2018 [facility] B Type 106 High <=100 finding [phone] Natriuretic pg/mL Peptide Activated Partial Thrombo Time 33.8 seconds Normal 26.0-38.0 D Dimer Quantitative 574 ng/mL High Less Than 230 20 Lactic Acid 1.0 mmol/L Normal 0.5-2.0 21 Comp Metabolic 12/30/2018 [facility] Sodium 133 mmol/ L Low 135-145 Panel [phone] Potassium 3.6 mmol/L Normal 3.5-5.0 Chloride 99 [...] Egfr Non- 39.4 >60 Egfr 47.6 >60 22 Laboratory test 12/30/2018 [facility] Troponin I 2.63 Critical <0.04 23 finding [phone] ng/mL high Creatine Kinase 59 U/L Normal 10-223 CKMB 12/30/2018 [facility] CKMB 2.3 ng/mL Normal 0.6-6.3 [phone] ng/mL Laboratory test 12/30/2018 [facility] T4 7.78 Normal 6.09-12.23 finding [phone] g/dL TSH (Thyroid Stim Horm) 10.33 mcIU/mL High 0.34-5.60 Urine Drug 12/22/2018 [facility] Urine None Detected None Detect SCR ED & [phone] Amphetamine Pain Clinic Screen Urine Barbiturates Screen None Detected None Detect Urine Benzodiazepine Screen None Detected None Detect Urine Cannabinoids Screen None Detected None Detect Urine Cocaine Screen None Detected None Detect Urine Opiates Screen Presumptive Posi <SEE NOTE> Abnormal None Detect 24 Urine Phencyclidine Screen None Detected None Detect 25 Laboratory test 12/22/2018 [facility] Urine Random 41 mmol/L finding [phone] Sodium Urine Random Creatinine 182.27 mg/dL CBC Auto 12/22/2018 [facility] White Blood 10.5 10^3/ uL Normal 3.5-10.8 Diff [phone] Count Red Blood Count 3.95 10^6/uL Normal [...] Blood Cells % 0.0 Inr/Protime 12/22/2018 [facility] Inr 0.95 Normal 0.82-1.09 26 [phone] Comp Metabolic 12/22/2018 [facility] Sodium 132 mmol/ L Low 135-145 Panel [phone] Potassium 3.4 mmol/L Low 3.5-5.0 Chloride 99 [...] Egfr Non- 18.2 >60 Egfr 22.0 >60 27 Lipid Profile 12/22/2018 [facility] Triglycerides 88 mg/dL 28 (Trig/Chol/HDL) [phone] Cholesterol 125 mg/dL 29 HDL Cholesterol 47.8 mg/dL 30 LDL Cholesterol 60 mg/dL 31 Laboratory test 12/22/2018 [facility] Magnesium 1.8 mg/dL Low 1.9-2.7 finding [phone] LDL Cholesterol Direct 71 mg/dL 32 TSH (Thyroid Stim Horm) 2.19 mcIU/mL Normal 0.34-5.60 Folate 16.29 ng/mL >3.99 Vitamin B12 > 1450 pg/mL High [phone] 33 Lyme Screen w/ Reflex to WB Negative Negative Laboratory test 12/22/2018 [facility] Troponin I 5.25 Critical <0.04 34 finding [phone] ng/mL high Lactic Acid 1.6 mmol/L Normal 0.5-2.0 35 Urinalysis Profile 12/22/2018 [facility] Urine Color [place] [phone] Urine Appearance Cloudy Urine Specific [place] 1.014 Normal 1.010-1.030 Urine pH 5.0 Normal [...] Casts Present Abnormal Absent CKMB 12/22/2018 [facility] CKMB ng/mL 6.8 ng/mL High 0.6-6.3 [phone] Laboratory test 12/22/2018 [facility] Creatine 75 U/ L Normal 10-223 finding [phone] Kinase Urine Culture And 12/22/2018 [facility] Urine SEE 36 Sensitivities [phone] Culture RESULT BELOW Laboratory test 12/22/2018 [facility] Alcohol < 10 Normal <10 finding [phone] mg/dL TSH (Thyroid Stim Horm) 1.88 mcIU/mL Normal 0.34-5.60 Vitamin B12 > 1450 pg/mL High [phone] 37 Laboratory test 12/22/2018 [facility] Vitamin D 25.3 Normal 20-50 38 finding [phone] Total 25(Oh) ng/mL CBC W/Automated 12/22/2018 [facility] White Blood 10.9 High 3.5-10.8 Diff [phone] Count 10^3/uL Red Blood Count 4.28 10^6/uL [...] Cells % 0.0 Laboratory test 12/22/2018 [facility] Hemoglobin 5.6 % Normal 4.0-5.6 39 finding [phone] A1c (Glyco HGB) Hla-B27 Disease 12/22/2018 [facility] Hla B27 Negative 40 Association [phone] Hla B27 Interp See Comment 41 Laboratory test 12/22/2018 [facility] Erythrocyte Sed 42 mm/Hr High 0-29 finding [phone] Rate Comprehensive 12/22/2018 [facility] Sodium 136 Normal 135-145 Metabolic Panel [phone] mmol/L Potassium 4.0 mmol/L Normal 3.5-5.0 Chloride [...] Egfr Non- 16.5 >60 Egfr 19.9 >60 42 Laboratory test 12/17/2018 [facility] Sedimentation Rate <pending> finding [address] [place], [place] [id number] [phone] Thyroid Stim Hormone <pending> Vitamin D,25-Hydroxy <pending> Laboratory test 12/17/2018 [facility] Magnesium <pending> finding [address] [place] [address] [phone] Laboratory test 12/17/2018 [facility] Hla-B27 Disease <pending> finding [address] [place] [address] [phone] Laboratory test 12/17/2018 [facility] Glycohemoglobin A1c <pending> finding [address] [place] [address] [phone] 1 G47.00, E55.9, E11.9, Z13.21, R53.83 2 This result was obtained with an ESR method that is not based on the standard Westergren Method. When comparing results obtained from the traditional Westergren ESR and this method it is important to refer to the reference range for each method. Method: Capillary Photometry 3 Elevated levels of HbA1c suggest the need for more aggressive treatment of glycemia. The [place] [employer] recommends that a primary goal of therapy should be a HbA1c of <7% and that physicians should re-evaluate the treatment regimen in patients with HbA1c values consistently >8%. 4 Note: Persistent reduction for 3 months or more in an eGFR <60 mL/min/1.73 m2 defines CKD. Patients with eGFR values >/=60 mL/min/1.73 m2 may also have CKD if evidence of persistent proteinuria is present. The original MDRD equation for estimated GFR is not valid for patients less than 18 years of age. Additional information may be found at www.kdoqi.org. 5 Please Note: Patients undergoing treatment with eltrombopag may have falsely elevated results with this assay method. 6 Values below the stated reference ranges of AST and ALT can be seen in normal populations. Clinical correlation is suggested. 7 Because ethnic data is not always readily [...] 15-29 5 Kidney failure <15 (or dialysis) 8 Troponin-I testing on Plasma Separator Tubes (PST) has a known false positive rate of 0.20-0.40%. All positive troponins reflex immediately to secondary confirmatory testing. Using the [employer] DxI 800 Access Immunoassay systems, the 99th percentile upper reference limit was demonstrated to be < 0.03 ng/mL. 9 Troponin-I testing on Plasma Separator Tubes (PST) has a known false positive rate of 0.20-0.40%. All positive troponins reflex immediately to secondary confirmatory testing. Using the [employer] DxI 800 Access Immunoassay systems, the 99th percentile upper reference limit was demonstrated to be < 0.03 ng/mL. 10 Standard intensity warfarin therapeutic range: 2.0-3.0 High intensity warfarin therapeutic range: 2.5-3.5 11 [facility] Severe Sepsis and Septic Shock Management Bundle Measure requires all lactic acids initially measuring >2.0 mmol/L be repeated. 12 Because ethnic data is not always readily [...] 15-29 5 Kidney failure <15 (or dialysis) 13 Critical Result K:2.6 Called to [id number] at: 23:59:03 by:[id number] Read back by:[id number] 14 Result TnIDx:0.09 Called to [id number] at: 18:50:37 by:[id number] Read back by: [id number] Troponin-I testing on Plasma Separator Tubes (PST) has a known false positive rate of 0.20-0.40%. All positive troponins reflex immediately to secondary confirmatory testing. Using the [employer] DxI 800 Access Immunoassay systems, the 99th percentile upper reference limit was demonstrated to be < 0.03 ng/mL. 15 Result TnIDx:0.10 Called to [id number] at: 15:43:47 by:[id number] Read back by: [id number] Troponin-I testing on Plasma Separator Tubes (PST) has a known false positive rate of 0.20-0.40%. All positive troponins reflex immediately to secondary confirmatory testing. Using the [employer] DxI 800 Access Immunoassay systems, the 99th percentile upper reference limit was demonstrated to be < 0.03 ng/mL. 16 Standard intensity warfarin therapeutic range: 2.0-3.0 High intensity warfarin therapeutic range: 2.5-3.5 17 Because ethnic data is not always [...] 5 Kidney failure <15 (or dialysis) 18 Result TnIDx:2.74 Called to [id number] at: 22:41:06 by:[id number] Read back by: [id number] Troponin-I testing on Plasma Separator Tubes (PST) has a known false positive rate of 0.20-0.40%. All positive troponins reflex immediately to secondary confirmatory testing. Using the [employer] DxI 800 Access Immunoassay systems, the 99th percentile upper reference limit was demonstrated to be < 0.03 ng/mL. 19 Standard intensity warfarin therapeutic range: 2.0-3.0 High intensity warfarin therapeutic range: 2.5-3.5 20 Please note: The following may produce a false positive D Dimer test: - Rheumatoid factor greater than 60 IU/ml - Plasma hemoglobin greater than 0.05 gm/dl - Bilirubin greater than 50 mg/dl - Lipids greater than 1000 mg/dl - FDP greater than 20 ug/ml 21 [facility] Severe Sepsis and Septic Shock Management Bundle Measure requires all lactic acids initially measuring >2.0 mmol/L be repeated. 22 Because ethnic data is not always readily [...] 15-29 5 Kidney failure <15 (or dialysis) 23 Result TnIDx:2.63 Called to [id number] at: 19:31:55 by:[id number] Read back by: [id number] Troponin-I testing on Plasma Separator Tubes (PST) has a known false positive rate of 0.20-0.40%. All positive troponins reflex immediately to secondary confirmatory testing. Using the [employer] 800 Access Immunoassay systems, the 99th percentile upper reference limit was demonstrated to be < 0.03 ng/mL. 24 Presumptive Positive Presumptive positive results are unconfirmed. 25 The urine specimen was tested at the listed cutoffs: Drug class test level (ng/mL) Amphetamines 500 Barbiturates 200 Benzodiazepine metabolites 200 Cocaine metabolites 150 Cannabinoids 50 Opiates 300 Pcp 25 Specimen was received without chain of custody. Results should be used for medical purposes only. 26 Standard intensity warfarin therapeutic range: 2.0-3.0 High intensity warfarin therapeutic range: 2.5-3.5 27 Because ethnic data is not always readily [...] 15-29 5 Kidney failure <15 (or dialysis) 28 Desirable: <150 Borderline High: 150-199 High: 200-499 Very High: >500 29 Desirable: <200 Borderline High: 200-239 High: >239 30 Low: <40 Desirable: 40-60 High: >60 31 Desirable: <100 Near Optimal: 100-129 Borderline High: 130-159 High: 160-189 Very High: >189 32 Desirable: <100 Near Optimal: 100-129 Borderline High: 130-159 High: 160-189 Very High: >189 33 Normal Range 180 to 914 Indeterminate Range 145 to 180 Deficient Range <145 34 Result TnIDx:5.25 Called to [id number] at: 15:06:21 by:[id number] Read back by: [id number] Troponin-I testing on Plasma Separator Tubes (PST) has a known false positive rate of 0.20-0.40%. All positive troponins reflex immediately to secondary confirmatory testing. Using the [employer] DxI 800 Access Immunoassay systems, the 99th percentile upper reference limit was demonstrated to be < 0.03 ng/mL. 35 [facility] Severe Sepsis and Septic Shock Management Bundle Measure requires all lactic acids initially measuring >2.0 mmol/L be repeated. 36 SEE RESULT BELOW Name: SHU MORRIS : [address]: Romy Moreno MD Acct: [id number] Unit: [id number] AGE: 78 Location: [place] [address] Re12/22/18 SEX: F Status: ADM IN SPEC: [id number] SHERRIE: 12/22/181507 [facility] DR: Sergei Silverman MD REQ: [id number] RECD: 12/22/18 STATUS: [facility] DR: Martha Bennett MD _ [facility]: Urine Culture Procedure Result Reported Site Urine Culture Final 12/23/18- 1217 ML No growth of clinically significant organisms * ML - Main Lab . END OF REPORT DEPARTMENT OF PATHOLOGY, [address] [place] [address] Rojelio Cullen M.D. Director [facility] # [id number] 37 Normal Range 180 to 914 Indeterminate Range 145 to 180 Deficient Range <145 38 Total 25-Hydroxyvitamin D2 and D3 (25-OH-VitD) <10 ng/mL (severe deficiency) 10-19 ng/mL (mild to moderate deficiency) 20-50 ng/mL (optimum levels) 51-80 ng/mL (increased risk of hypercalciuria) >80 ng/mL (toxicity possible) 39 Therapeutic target for the treatment of diabetes mellitus patients is <7% HBA1C, and in selective patients <6.0%. Please refer to [place] [employer] diabetic care guidelines for further information. 40 REFERENCE VALUE Not Applicable 41 RESULT: HLA-B27 antigen was not detected. ADDITIONAL INFORMATION Method: Flow Cytometry Test Performed by: [facility] - [address] [address] Relationship Assoc: Ezra Chawla M.D. Ph.D.; 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 R53.83 Other fatigue I95.89 Other hypotension E11.9 Type 2 diabetes mellitus without complications M54.6 Pain in thoracic spine J44.9 Chronic obstructive pulmonary disease, unspecified E03.9 Hypothyroidism, unspecified E55.9 Vitamin D deficiency, unspecified Z13.21 Encounter for screening for nutritional disorder Office Visit 01/13/2019 2:45p Family Martha Lobo, I25.119 Athscl heart Stevie Ann MD, PHD disease of [place] cor art w uns ang pctrs R53.83 Other fatigue I95.89 Other hypotension E11.9 Type 2 diabetes mellitus without complications M54.6 Pain in thoracic spine M54.5 Low back pain F32.0 Major depressive disorder, single episode, mild R05 Cough K59.03 Drug induced constipation Office Visit 12/17/2018 10:00a Family Medicine Sabrina, M79.606 Pain in leg , [place] MD Martha, unspecified PHD E11.9 Type 2 diabetes mellitus without complications J44.9 Chronic obstructive pulmonary disease, unspecified Z72.0 Tobacco use F32.0 Major depressive disorder, single episode, mild K21.9 Gastro-esophageal reflux disease without esophagitis M54.5 Low back pain Z23 Encounter for immunization E03.9 Hypothyroidism, unspecified I25.10 Athscl heart disease of [place] coronary artery w/o ang pctrs I10 Essential (primary) hypertension Z59.8 Other problems related to housing and economic circumstances M54.6 Pain in thoracic spine R53.83 Other fatigue Z13.21 Encounter for screening for nutritional disorder M19.90 Unspecified osteoarthritis, unspecified site R35.0 Frequency of micturition R30.0 Dysuria I73.9 Peripheral vascular disease, unspecified R01.1 Cardiac murmur, unspecified Assessments Date Code Description Provider 06/12/2019 G47.00 Insomnia, unspecified Martha Bennett MD, PHD 06/12/2019 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, 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 06/12/2019 R53.83 Other fatigue Martha Bennett MD, PHD 06/12/2019 I95.89 Other hypotension Martha Bennett MD, PHD 06/12/2019 E11.9 Type 2 diabetes mellitus without Martha Bennett MD, PHD complications 06/12/2019 M54.6 Pain in thoracic spine Martha Bennett MD, PHD 06/12/2019 J44.9 Chronic obstructive pulmonary disease, Martha Bennett MD , PHD unspecified 06/12/2019 E03.9 Hypothyroidism, unspecified Martha Bennett MD, PHD 06/12/2019 E55.9 Vitamin D deficiency, unspecified Martha Bennett MD, PHD 06/12/2019 Z13.21 Encounter for screening for nutritional Martha Bennett MD, PHD disorder 01/13/2019 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, PHD coronary artery with [...] PHD 12/17/2018 I25.10 Atherosclerotic heart disease of [place] Martha Bennett MD, PHD coronary artery without [...] Cardiac murmur, unspecified Martha Bennett MD, PHD Plan of Treatment Future Appointment(s):09/14/2019 2:00 pm - Martha Bennett MD, PHD at [facility] Main Functional Status Functional Condition Comment Date Status Independent with all ADL's Active Mental Status Description No Information Available Referrals Description No Information Available
--- OUTSIDE RECORDS SUMMARY | 2019-07-14 13:52 | XMS REPORT | Continuity of Care Document ---
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 , PHD [facility] Fre[place] test 1-3 times a day 1units E11.9 [...] walker 1units M19.90 Martha Bennett MD, 01/12/2019 [facility] standard size. PHD R26.81 S22.009G Brilinta take 1 tab by mouth 60tabs Martha Bennett, 12/27/2018 90mg Tablets twice daily. , PHD Oxycodone HCL 1 tab by mouth three 90tabs Martha Bennett, 12/17/2018 15mg times a day as needed , PHD Tablets Back Support Women Elastic 1units M54.6 Martha Bennett, 06/26/2018 [facility] Adjustable Shoulder , PHD Brace Waist Belt Back Support Posture Corrector,Posture Corrector, Shoulder Support Brace M54.5 S22.000D Wheelchair [facility] M54.5 Martha Bennett MD, PHD M54.6 Albuterol Sulfate Take 2.5 mg by Unknown inhalation. (2.5mg/3ML) 0.083% Nebulizer Ipratropium [place] 2 Sprays in nose. Unknown 0.03% Solution [...] CPT Code Status Date Vaccine Lot # [id number] Given 12/17/2018 Influenza Virus Vaccine, Quadrivalent, 36 Mos+, .5ML Vital Signs Date Vital Result Comment 06/12/2019 3:08pm BP Systolic Sitting Right Arm 101 mmHg BP Diastolic Sitting Right Arm 63 mmHg Body Temperature 98.2 F Heart Rate 66 /min Height 63 inches 5'3" Weight 142.00 lb BMI (Body Mass Index) 25.2 kg/m2 BSA (Body Surface Area) 1.67 m2 [place] body weight in kilograms 52 kg O2 % BldC Oximetry 94 % ra 01/13/2019 2:42pm BP Systolic 99 mmHg BP Diastolic 62 mmHg Body Temperature 97.1 F Heart Rate 82 /min Respiratory Rate 20 /min Height 63 inches 5'3" Weight 130.00 lb BMI (Body Mass Index) 23.0 kg/m2 BSA (Body Surface Area) 1.61 m2 [place] body weight in kilograms 52 kg O2 % BldC Oximetry 99 % Results Test Acquired Date Facility Test Result H/L Range Note BMP W/Egfr 01/30/2019 [facility] Sodium 142 mmol/L Normal 135-145 [phone] Potassium 3.8 mmol/L Normal 3.5-5.0 Chloride 109 mmol/L Normal 101-111 Co2 Carbon Dioxide 29 mmol/L Normal 22-32 Anion Gap 4 mmol/L Normal 2-11 Glucose 116 mg/dL High 70-100 Blood Urea Nitrogen 17 mg/dL Normal 6-24 Creatinine 0.82 mg/dL Normal 0.51-0.95 BUN/Creatinine Ratio 20.7 High 8-20 Calcium 8.9 mg/dL Normal 8.6-10.3 Egfr Non- 67.6 >60 Egfr 81.8 >60 1 Laboratory test 01/26/2019 [facility] Troponin I 0.03 ng/mL <0.04 2 finding [phone] Laboratory test 01/25/2019 [facility] Troponin I 0.03 ng/mL <0.04 3 finding [phone] B Type Natriuretic Peptide 243 pg/mL High <=100 Inr/Protime 01/25/2019 [facility] Inr 0.97 Normal 0.82-1.09 4 [phone] Laboratory test 01/25/2019 [facility] Lactic Acid 1.0 Normal 0.5-2.0 5 finding [phone] mmol/L Comp Metabolic 01/25/2019 [facility] Sodium 141 Normal 135-145 Panel [phone] mmol/L Chloride 107 mmol/L Normal 101-111 Co2 [...] Egfr Non- 65.7 >60 Egfr 79.6 >60 6 Potassium 2.6 mmol/L Critical low 3.5-5.0 7 Anion Gap 7 mmol/L Normal 2-11 Laboratory 01/06/2019 [facility] Troponin I 0.09 Critical <0.04 8 test finding [phone] ng/mL high CKMB 01/06/2019 [facility] CKMB ng/mL 1.2 ng/mL Normal 0.6-6.3 [phone] Laboratory 01/06/2019 [facility] Magnesium 1.6 mg/dL Low 1.9-2.7 test finding [phone] Creatine Kinase 24 U/L Normal 10-223 Troponin I 0.10 ng/mL Critical high <0.04 9 CBC Auto 01/06/2019 [facility] White Blood 13.3 10^3/ uL High 3.5-10.8 Diff [phone] Count Red Blood Count 4.51 10^6/uL Normal [...] Red Blood Cells % 0.0 Laboratory 01/06/2019 [facility] B Type 157 pg/mL High <=100 test finding [phone] Natriuretic Peptide Inr/Protime 01/06/2019 [facility] Inr 1.01 Normal 0.82-1.0 10 [phone] 9 Laboratory 01/06/2019 [facility] Activated 34.5 Normal 26.0-38. test finding [phone] Partial seconds 0 Thrombo Time Comp Metabolic 01/06/2019 [facility] Sodium 132 mmol/ L Low 135-145 Panel [phone] Potassium 3.4 mmol/L Low 3.5-5.0 Chloride 98 [...] Egfr Non- 33.2 >60 Egfr 40.1 >60 11 Laboratory 12/30/2018 [facility] Troponin I 2.74 Critical <0.04 12 test finding [phone] ng/mL high CBC Auto Diff 12/30/2018 [facility] White Blood 7.8 Normal 3.5-10.8 [phone] Count 10^3/uL Red Blood Count 3.98 10^6/uL [...] Red Blood Cells % 0.0 Inr/Protime 12/30/2018 [facility] Inr 1.04 Normal 0.82-1.09 13 [phone] Laboratory test 12/30/2018 [facility] B Type 106 High <=100 finding [phone] Natriuretic pg/mL Peptide Activated Partial Thrombo Time 33.8 seconds Normal 26.0-38.0 D Dimer Quantitative 574 ng/mL High Less Than 230 14 Lactic Acid 1.0 mmol/L Normal 0.5-2.0 15 Comp Metabolic 12/30/2018 [facility] Sodium 133 mmol/ L Low 135-145 Panel [phone] Potassium 3.6 mmol/L Normal 3.5-5.0 Chloride 99 [...] Egfr Non- 39.4 >60 Egfr 47.6 >60 16 Laboratory test 12/30/2018 [facility] Troponin I 2.63 Critical <0.04 17 finding [phone] ng/mL high Creatine Kinase 59 U/L Normal 10-223 CKMB 12/30/2018 [facility] CKMB 2.3 ng/mL Normal 0.6-6.3 [phone] ng/mL Laboratory test 12/30/2018 [facility] T4 7.78 Normal 6.09-12.23 finding [phone] g/dL TSH (Thyroid Stim Horm) 10.33 mcIU/mL High 0.34-5.60 Urine Drug 12/22/2018 [facility] Urine None Detected None Detect SCR ED & [phone] Amphetamine Pain Clinic Screen Urine Barbiturates Screen None Detected None Detect Urine Benzodiazepine Screen None Detected None Detect Urine Cannabinoids Screen None Detected None Detect Urine Cocaine Screen None Detected None Detect Urine Opiates Screen Presumptive Posi <SEE NOTE> Abnormal None Detect 18 Urine Phencyclidine Screen None Detected None Detect 19 Laboratory test 12/22/2018 [facility] Urine Random 41 mmol/L finding [phone] Sodium Urine Random Creatinine 182.27 mg/dL CBC Auto 12/22/2018 [facility] White Blood 10.5 10^3/ uL Normal 3.5-10.8 Diff [phone] Count Red Blood Count 3.95 10^6/uL Normal [...] Red Blood Cells % 0.0 Inr/Protime 12/22/2018 [facility] Inr 0.95 Normal 0.82-1.09 20 [phone] Comp Metabolic 12/22/2018 [facility] Sodium 132 mmol/ L Low 135-145 Panel [phone] Potassium 3.4 mmol/L Low 3.5-5.0 Chloride 99 [...] Egfr Non- 18.2 >60 Egfr 22.0 >60 21 Lipid Profile 12/22/2018 [facility] Triglycerides 88 mg/dL 22 (Trig/Chol/HDL) [phone] Cholesterol 125 mg/dL 23 HDL Cholesterol 47.8 mg/dL 24 LDL Cholesterol 60 mg/dL 25 Laboratory test 12/22/2018 [facility] Magnesium 1.8 mg/dL Low 1.9-2.7 finding [phone] LDL Cholesterol Direct 71 mg/dL 26 TSH (Thyroid Stim Horm) 2.19 mcIU/mL Normal 0.34-5.60 Folate 16.29 ng/mL >3.99 Vitamin B12 > 1450 pg/mL High 180-914 27 Lyme Screen w/ Reflex to WB Negative Negative Laboratory test 12/22/2018 [facility] Troponin I 5.25 Critical <0.04 28 finding [phone] [phone] high Lactic Acid 1.6 mmol/L Normal 0.5-2.0 29 Urinalysis Profile 12/22/2018 [facility] Urine Color [place] [phone] Urine Appearance Cloudy Urine Specific [place] 1.014 Normal 1.010-1.030 Urine pH 5.0 Normal [...] Hyaline Casts Present Abnormal Absent CKMB 12/22/2018 [facility] CKMB ng/mL 6.8 ng/mL High 0.6-6.3 [phone] Laboratory test 12/22/2018 [facility] Creatine 75 U/ L Normal 10-223 finding [phone] Kinase Urine Culture And 12/22/2018 [facility] Urine SEE 30 Sensitivities [phone] Culture RESULT BELOW Laboratory test 12/22/2018 [facility] Alcohol < 10 Normal <10 finding [phone] mg/dL TSH (Thyroid Stim Horm) 1.88 mcIU/mL Normal 0.34-5.60 Vitamin B12 > 1450 pg/mL High 180-914 31 Laboratory test 12/22/2018 [facility] Vitamin D 25.3 Normal 20-50 32 finding [phone] Total 25(Oh) ng/mL CBC W/Automated 12/22/2018 [facility] White Blood 10.9 High 3.5-10.8 Diff [phone] Count 10^3/uL Red Blood Count 4.28 10^6/uL [...] Blood Cells % 0.0 Laboratory test 12/22/2018 [facility] Hemoglobin 5.6 % Normal 4.0-5.6 33 finding [phone] A1c (Glyco HGB) Hla-B27 Disease 12/22/2018 [facility] Hla B27 Negative 34 Association [phone] Hla B27 Interp See Comment 35 Laboratory test 12/22/2018 [facility] Erythrocyte Sed 42 mm/Hr High 0-29 finding [phone] Rate Comprehensive 12/22/2018 [facility] Sodium 136 Normal 135-145 Metabolic Panel [phone] mmol/L Potassium 4.0 mmol/L Normal 3.5-5.0 Chloride [...] Egfr Non- 16.5 >60 Egfr 19.9 >60 36 Laboratory test 12/17/2018 [facility] Sedimentation Rate <pending> finding [address] [place] [address] [phone] Thyroid Stim Hormone <pending> Vitamin D,25-Hydroxy <pending> Laboratory test 12/17/2018 [facility] Magnesium <pending> finding [address] [place] [address] [phone] Laboratory test 12/17/2018 [facility] Hla-B27 Disease <pending> finding [address] [place] [address] [phone] Laboratory test 12/17/2018 [facility] Glycohemoglobin A1c <pending> finding [address] [place] [address] [phone] 1 Because ethnic data is not always [...] immediately to secondary confirmatory testing. Using the [employer] DxI 800 Access Immunoassay systems, the 99th percentile upper reference limit was demonstrated to be < 0.03 ng/mL. 3 Troponin-I testing on Plasma Separator Tubes (PST) has a known false positive rate of 0.20-0.40%. All positive troponins reflex immediately to secondary confirmatory testing. Using the [employer] DxI 800 Access Immunoassay systems, the 99th percentile upper reference limit was demonstrated to be < 0.03 ng/mL. 4 Standard intensity warfarin therapeutic range: 2.0-3.0 High intensity warfarin therapeutic range: 2.5-3.5 5 [facility] Severe Sepsis and Septic Shock Management Bundle Measure requires all lactic acids initially measuring >2.0 mmol/L be repeated. 6 Because ethnic data is not always [...] 5 Kidney failure <15 (or dialysis) 7 Critical Result K:2.6 Called to [id number] at: 23:59:03 by:[id number] Read back by:[id number] 8 Result TnIDx:0.09 Called to [id number] at: 18:50:37 by:[id number] Read back by: [id number] Troponin-I testing on Plasma Separator Tubes (PST) has a known false positive rate of 0.20-0.40%. All positive troponins reflex immediately to secondary confirmatory testing. Using the [employer] DxI 800 Access Immunoassay systems, the 99th percentile upper reference limit was demonstrated to be < 0.03 ng/mL. 9 Result TnIDx:0.10 Called to [id number] at: 15:43:47 by:[id number] Read back by: [id number] Troponin-I testing on Plasma Separator Tubes (PST) has a known false positive rate of 0.20-0.40%. All positive troponins reflex immediately to secondary confirmatory testing. Using the [employer] DxI 800 Access Immunoassay systems, the 99th percentile upper reference limit was demonstrated to be < 0.03 ng/mL. 10 Standard intensity warfarin therapeutic range: 2.0-3.0 High intensity warfarin therapeutic range: 2.5-3.5 11 Because ethnic data is not always [...] 5 Kidney failure <15 (or dialysis) 12 Result TnIDx:2.74 Called to [id number] at: 22:41:06 by:[id number] Read back by: [id number] Troponin-I testing on Plasma Separator Tubes (PST) has a known false positive rate of 0.20-0.40%. All positive troponins reflex immediately to secondary confirmatory testing. Using the [employer] DxI 800 Access Immunoassay systems, the 99th percentile upper reference limit was demonstrated to be < 0.03 ng/mL. 13 Standard intensity warfarin therapeutic range: 2.0-3.0 High intensity warfarin therapeutic range: 2.5-3.5 14 Please note: The following may produce a false positive D Dimer test: - Rheumatoid factor greater than 60 IU/ml - Plasma hemoglobin greater than 0.05 gm/dl - Bilirubin greater than 50 mg/dl - Lipids greater than 1000 mg/dl - FDP greater than 20 ug/ml 15 [facility] Severe Sepsis and Septic Shock Management Bundle Measure requires all lactic acids initially measuring >2.0 mmol/L be repeated. 16 Because ethnic data is not always readily [...] 15-29 5 Kidney failure <15 (or dialysis) 17 Result TnIDx:2.63 Called to [id number] at: 19:31:55 by:[id number] Read back by: [id number] Troponin-I testing on Plasma Separator Tubes (PST) has a known false positive rate of 0.20-0.40%. All positive troponins reflex immediately to secondary confirmatory testing. Using the [employer] DxI 800 Access Immunoassay systems, the 99th percentile upper reference limit was demonstrated to be < 0.03 ng/mL. 18 Presumptive Positive Presumptive positive results are unconfirmed. 19 The urine specimen was tested at the listed cutoffs: Drug class test level (ng/mL) Amphetamines 500 Barbiturates 200 Benzodiazepine metabolites 200 Cocaine metabolites 150 Cannabinoids 50 Opiates 300 Pcp 25 Specimen was received without chain of custody. Results should be used for medical purposes only. 20 Standard intensity warfarin therapeutic range: 2.0-3.0 High intensity warfarin therapeutic range: 2.5-3.5 21 Because ethnic data is not always readily [...] 15-29 5 Kidney failure <15 (or dialysis) 22 Desirable: <150 Borderline High: 150-199 High: 200-499 Very High: >500 23 Desirable: <200 Borderline High: 200-239 High: >239 24 Low: <40 Desirable: 40-60 High: >60 25 Desirable: <100 Near Optimal: 100-129 Borderline High: 130-159 High: 160-189 Very High: >189 26 Desirable: <100 Near Optimal: 100-129 Borderline High: 130-159 High: 160-189 Very High: >189 27 Normal Range 180 to 914 Indeterminate Range 145 to 180 Deficient Range <145 28 Result TnIDx:5.25 Called to [id number] at: 15:06:21 by:[id number] Read back by: [id number] Troponin-I testing on Plasma Separator Tubes (PST) has a known false positive rate of 0.20-0.40%. All positive troponins reflex immediately to secondary confirmatory testing. Using the [employer] DxI 800 Access Immunoassay systems, the 99th percentile upper reference limit was demonstrated to be < 0.03 ng/mL. 29 [facility] Severe Sepsis and Septic Shock Management Bundle Measure requires all lactic acids initially measuring >2.0 mmol/L be repeated. 30 SEE RESULT BELOW Name: ALEXANDRAAugust : [address]: Romy Moreno MD Acct: [id number] Unit: [id number] AGE: 78 Location: [place] [address] Re12/22/18 SEX: F Status: ADM IN SPEC: [id number] SHERRIE: 12/22/18-1507 [facility] DR: Sergei Silverman MD REQ: [id number] RECD: 12/22/18152 STATUS: COMP CHRISTENHR DR: Martha Bennett MD _ SOURCE: URINE SPDESC: ORDERED: Urine Culture Procedure Result Reported Site Urine Culture Final 12/23/18- 1217 ML No growth of clinically significant organisms * ML - Main Lab . END OF REPORT DEPARTMENT OF PATHOLOGY, [address] [place] [address] Rojelio Cullen M.D. Director [facility] # [id number] 31 Normal Range 180 to 914 Indeterminate Range 145 to 180 Deficient Range <145 32 Total 25-Hydroxyvitamin D2 and D3 (25-OH-VitD) <10 ng/mL (severe deficiency) 10-19 ng/mL (mild to moderate deficiency) 20-50 ng/mL (optimum levels) 51-80 ng/mL (increased risk of hypercalciuria) >80 ng/mL (toxicity possible) 33 Therapeutic target for the treatment of diabetes mellitus patients is <7% HBA1C, and in selective patients <6.0%. Please refer to [place] [employer] diabetic care guidelines for further information. 34 REFERENCE VALUE Not Applicable 35 RESULT: HLA-B27 antigen was not detected. ADDITIONAL INFORMATION Method: Flow Cytometry Test Performed by: [facility] [place] [address] Applicator Sprayer: Ezra Chawla M.D. Ph.D.; [place]# [id number] 36 Because ethnic data is not always readily [...] dialysis) Procedures Date Code Description Status 01/13/2019 85741 Brief Emotional/Behav Assessment W/ Scoring Doc Per Completed Standard Inst 04/01/2017 [id number] Mammogram Completed Medical Devices Description No Information Available Encounters Type Date Location Provider Dx Diagnosis Office Visit 06/12/2019 Family Medicine Martha Bennett, G47.00 Insomnia, 3:00p Stevie Ann MD, PHD unspecified I25.119 Athscl heart disease of [place] [facility] R[facility].83 Other fatigue I95.89 Other hypotension E11.9 Type 2 diabetes mellitus without complications M54.6 Pain in thoracic spine J44.9 Chronic obstructive pulmonary disease, unspecified E03.9 Hypothyroidism, unspecified E55.9 Vitamin D deficiency, unspecified Z13.21 Encounter for screening for nutritional disorder Office Visit 01/13/2019 2:45p Family Medicine Martha Bennett, I25.119 Athscl heart Stevie Ann MD, PHD disease of [place] [facility] R53.83 Other fatigue I95.89 Other hypotension E11.9 Type 2 diabetes mellitus without complications M54.6 Pain in thoracic spine M54.5 Low back pain F32.0 Major depressive disorder, single episode, mild R05 Cough K59.03 Drug induced constipation Office Visit 12/17/2018 10:00a Family Medicine Sabrina, M79.606 Pain in leg , [facility] MD Martha, unspecified PHD E11.9 Type 2 diabetes mellitus without complications J44.9 Chronic obstructive pulmonary disease, unspecified Z72.0 Tobacco use F32.0 Major depressive disorder, single episode, mild K21.9 Gastro-esophageal reflux disease without esophagitis M54.5 Low back pain Z23 Encounter for immunization E03.9 Hypothyroidism, unspecified I25.10 Athscl heart disease of [place] coronary artery w/o [facility] pctrs I10 Essential (primary) hypertension Z59.8 Other [...] PHD 06/12/2019 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[place] Martha Bennett MD, PHD coronary artery with [...] disorder 01/13/2019 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[place] Martha Bennett MD, PHD coronary artery with [...] PHD 12/17/2018 I25.10 Atherosclerotic heart disease of [place] Martha Bennett MD, PHD coronary artery without [...] Martha Bennett MD, PHD Plan of Treatment No Information Available Functional Status Functional Condition Comment Date Status Independent with all ADL's Active Mental Status Description No Information Available Referrals Description No Information Available
--- OUTSIDE RECORDS SUMMARY | 2019-07-14 13:52 | XMS REPORT | Summary of Care ---
:1940 Author Organization [facility] Address [address] [address] Care Team Providers Name Role Phone Martha Bennett MD Primary Care Provider Reason for Referral MRI/CAT/PET Scan (Routine) Status Reason Specialty Diagnoses / Procedures Referred By Referred To Contact Contact Authorized Diagnoses PAD (peripheral artery disease) (HCC) Vascular claudication (HCC) Chris Gamble NP Procedures CT UPPER EXTREMITY ANGIOGRAPHY LEFT [address] [address] MRI/CAT/PET Scan (Routine) Status Reason Specialty Diagnoses / Procedures Referred By Referred To Contact Contact Authorized Diagnoses Vascular claudication (HCC) Chris Gamble NP Procedures CT ABDOMEN PELVIS ANGIOGRAPHY RUNOFF [address] [address] Reason for Visit Reason Comments Peripheral Vascular Disease Refer to Department Only (Routine) Status Reason Specialty Diagnoses / Referred By Referred To Procedures Contact Contact Closed Vascular Surgery Diagnoses Claudication of both lower extremities (HCC) PAD (peripheral artery disease) (HCC) Eric Garcia MD [address] [address] Encounter Details Date Type Department Care Team Description 06/16/2019 Office Visit [place] [facility] PAD (peripheral artery disease) (HCC) (Primary Dx); Surgery MD Cesar Claudication of both lower extremities (HCC); [address] [facility] Vascular claudication ([facility]) [place] [address] [address] [address] [phone] Allergies Active Allergy Reactions Severity Noted Date Comments Oxycontin Unknown Reaction 01/27/2018 Sulfa Antibiotics Rash 06/16/2012 Skin burning and itching documented as of this encounter (statuses as of 06/21/2019) Medications Medication Sig Dispensed Refills Start Date End Date Status venlafaxine (EFFEXOR XR) Take 150 mg by 0 Active 150 MG Oral CAPSULE SR mouth EVERY 24 HR TWENTY-FOUR HOURS. albuterol (PROVENTIL, Take 2.5 mg by 0 Active VENTOLIN) (2.5 MG/3ML) inhalation. 0.083% Inhalation Nebu Soln ipratropium (ATROVENT) [place] 2 Sprays 0 Active 0.03 % Nasal Solution in nose. oxycodone, immediate Take 15 mg by 0 Active release, (OXY-IR) 15 MG mouth EVERY FOUR Oral Tab HOURS NEEDED. aspirin 81 MG Oral Tab Take 1 Tab by 30 Tab 0 12/28/2018 Active EC mouth DAILY. Omeprazole delayed rel Take 20 mg by 0 Active cap 20 MG Oral CAPSULE mouth DAILY. DELAYED RELEASE TRAZODONE HCL PO Take 100 mg by 0 Active mouth EVERY BEDTIME NEEDED. levothyroxine Take 1 Tab by 30 Tab 0 01/02/2019 Active (SYNTHROID) 75 MCG Oral mouth BEFORE Tab BREAKFAST. Rosuvastatin Calcium TAKE 1 TABLET BY 90 Tab 3 01/02/2019 Active (CRESTOR) 40 MG Oral Tab MOUTH DAILY Docusate Sodium 100 MG Take 1 Tab by 0 Active Oral Tab mouth TWICE DAILY. celeCOXIB (CELEBREX) 100 Take 100 mg by 0 Active MG Oral Cap mouth TWICE DAILY. Baclofen 5 MG Oral Tab Take 1 Tab by 0 Active mouth EVERY BEDTIME NEEDED. isosorbide MONOnitrate Take 1 Tab by 90 Tab 3 02/25/2019 Active (IMDUR) 30 MG Oral mouth DAILY. TABLET SR 24 HRIndications: Coronary artery disease of [place] artery of [place] heart with stable angina pectoris ([facility]) torsemide (DEMADEX) 20 Take 1 Tab by 90 Tab 3 02/25/2019 Active MG Oral TabIndications: mouth DAILY. Rheumatic mitral stenosis clopidogrel (PLAVIX) 75 Take 1 Tab by 90 Tab 3 03/30/2019 Active MG Oral Tab mouth DAILY. Cyanocobalamin (B-12 PO) Take 5,000 mcg 0 Active by mouth DAILY. metoprolol (LOPRESSOR) Take 0.5 Tabs by 90 Tab 0 06/10/2019 Active 25 MG Oral mouth TWICE TabIndications: DAILY. Rheumatic mitral stenosis cilostazol (PLETAL) 50 Take 1 Tab by 180 Tab 0 06/16/2019 Active MG Oral Tab mouth TWICE DAILY. 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 Trochanteric bursitis of both hips 03/07/2018 Overview: Added automatically from request for surgery [id number] Spondylosis of lumbar region without myelopathy or radiculopathy 01/27/2018 Spondylosis of cervical region without myelopathy or radiculopathy 01/27/2018 Other and combined forms of senile cataract 01/09/2005 documented as of this encounter (statuses as of 06/21/2019) Social History Tobacco Use Types Packs/Day Years Used Date Former Smoker Cigarettes 1.5 49 Quit: 02/09/2019 Smokeless Tobacco: Never Used Alcohol Use Drinks/Week oz/Week Comments No Sex Assigned at Date Recorded Not on file documented as of this encounter Last Filed Vital Signs Vital Sign Reading Time Taken Comments Blood Pressure 130/72 06/16/2019 2:03 PM EDT Pulse 56 06/16/2019 2:03 PM EDT Temperature 36.9 06/16/2019 2:03 PM EDT C (98.4 F) Respiratory Rate - - Oxygen Saturation - - Inhaled Oxygen Concentration - - Weight 64.4 kg (142 lb) 06/16/2019 2:03 PM EDT Height 162.6 cm (5' 4") 06/16/2019 2:03 PM EDT Body Mass Index 24.37 06/16/2019 2:03 PM EDT documented in this encounter Progress Notes Chris Gamble NP - 06/16/2019 2:20 PM EDT PATIENT: Shu Nagy : 1940 DATE OF SERVICE: 06/16/2019 REFERRING PRACTITIONER: Eric Garcia PRIMARY CARE PROVIDER: Martha Bennett CHIEF COMPLAINT: Chief Complaint Patient presents with ? Peripheral Vascular Disease Subjective HISTORY OF PRESENT ILLNESS: Shu Nagy is a 79-y.o. female who presents for a consultation. Shu presents for evaluation of left leg pain, back and bilateral arm and should pain with arm numbness with use. Reports she is unable to walk through a store without sitting down several times. She is unable to lie flat without back , shoulder and arm pain. She denies any arm or leg swelling, denies any open wounds or ulcers, no discoloration. Onset was gradual, began about 3-4 months ago. Symptoms have been gradually worsening. Exacerbated by or brought on by walking and arm use. Alleviated by rest within 5 minutes and then able to continue as before The patient's risk factors for atherosclerosis include hypertension, atherosclerotic heart disease. There is a history of a cardiovascular disease in the patient's family. The patient denies a history of smoking, cerebral vascular disease. The patient has a previous history of MYOCARDIAL INFARCTION with cardiac stenting X 3. PREVIOUS DIAGNOSTICS: 12/26/2019 IMPRESSIONS: PVD ? PVRs of the right thigh, calf, ankle and metatarsal are normal and moderate in the digit. ? Doppler of the right DPA is biphasic and triphasic in the NURSING PROGRAM MANAGER. ? Rt VERENICE 0.97 ? PVRs of the left thigh are normal, moderate in the calf and ankle, severe in the metatarsal and absent in the digit. ? Doppler of the left NURSING PROGRAM MANAGER is biphasic and absent in the DPA. ? Lt VERENICE 0.49 ? VERENICE Value: Over 1.3 (Noncompressible), 0.90-1.3 (Normal, 0.89 - 0.60 (Mild), 0.59-0.40 (Moderate), Under 0.40 (Severe) ? There is no previous study available for comparison IMPRESSIONS: pre-op CABG Duplex imaging of the right internal carotid artery indicates a 0-49% stenosis with minimal plaque visualized in the right bulb and internal carotid artery. ? Duplex imaging of the left internal carotid artery indicates a 50-69% stenosis with moderate plaque visualized in the left bulb and internal carotid artery. ? Rt ICA 122/33cm/sec Lt ICA 173/34cm/sec ? The bilateral vertebral arteries show antegrade flow. There is no previous available for comparison. Past Medical History: Diagnosis Date ? Allergic rhinitis ? Chronic pharyngitis ? Diabetes mellitus (HCC) ? GERD (gastroesophageal reflux disease) ? Headache disorder ? NSTEMI (non-ST elevated myocardial infarction) ([facility]) 12/25/2018 ? 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 Problems with hearing ? Spondylosis of lumbar region without myelopathy or radiculopathy 2017 ? Unspecified otitis media Past Surgical History: Procedure Laterality Date ? ANGIOPLASTY STENT CORONARY N/A 12/26/2018 Procedure: ANGIOPLASTY STENT CORONARY; Surgeon: Champ Fuentes MD; Location: [facility] CCL ? CATHETERIZATION HEART LEFT N/A 01/01/2019 Procedure: CATHETERIZATION HEART LEFT; Surgeon: Champ Fuentes MD; Location: [facility] CCL ? ECHO, TRANS ESOPHOGEAL N/A 12/26/2018 Procedure: ECHO, TRANS ESOPHOGEAL; Surgeon: Paco Bradley MD; Location: [facility] CCL ? DE I&D, POST SPINE, LUMB/SACR/LUMBOSAC ? DE REMOVE TONSILS/ADENOIDS,12+ Y/O History reviewed. No pertinent family history. Current Outpatient Medications Medication Sig ? albuterol (PROVENTIL, VENTOLIN) (2.5 MG/3ML) 0.083% Inhalation Nebu Soln Take 2.5 mg by inhalation. ? aspirin 81 MG Oral Tab EC Take 1 Tab by mouth DAILY. ? Baclofen 5 MG Oral Tab Take 1 Tab by mouth EVERY BEDTIME NEEDED. ? celeCOXIB (CELEBREX) 100 MG Oral Cap Take 100 mg by mouth TWICE DAILY. ? cilostazol (PLETAL) 50 MG Oral Tab Take 1 Tab by mouth TWICE DAILY. ? clopidogrel (PLAVIX) 75 MG Oral Tab Take 1 Tab by mouth DAILY. ? Cyanocobalamin (B-12 PO) Take 5,000 mcg by mouth DAILY. ? Docusate Sodium 100 MG Oral Tab Take 1 Tab by mouth TWICE DAILY. ? ipratropium (ATROVENT) 0.03 % Nasal Solution [place] 2 Sprays in nose. ? isosorbide MONOnitrate [...] No current facility-administered medications for this visit. Allergies Allergen Reactions ? Oxycontin Unknown Reaction ? Sulfa Antibiotics Rash Skin burning and itching Social History Socioeconomic History ? Marital status: [...] file Gets together: Not on file Attends pentecostalism service: Not on file Active member of [...] Social History Narrative ? Not on file REVIEW OF SYSTEMS: as per history of present illness Objective PHYSICAL EXAMINATION: VITALS: BP 130/72 (BP Location: Left arm, Patient Position: Sitting) | Pulse 56 | Temp 98.4 F(36.9 C) (Tympanic) | Ht 5' 4" (1.626 m) | Wt 142 lb (64.4 kg) | BMI 24.37 kg/m GENERAL: awake, alert, oriented. HEENT: pupils equal, round, reactive to light, extraocular movement intact. NECK: no mass, no adenopathy, no thyromegaly. ABDOMEN: soft, non tender, without masses or organomegaly. NEUROLOGICAL: Oriented X 3, muscle strength 5/5 throughout. PULSES: left radial +2 normal, right radial +2 normal, left dorsalis not palpable, right dorsalis +2 normal, left posterior tibialis not palpable and right posterior tibialis +2 normal. LEFT FOOT: warm, good capillary filling, no ulceration, no discoloration. RIGHT FOOT: warm, good capillary filling, no ulceration, no discoloration. Plan ASSESSMENT and PLAN: Lifestyle limiting claudication. Last VERENICE Right 0.97 Dopplers DPA biphasic and NURSING PROGRAM MANAGER triphasic PVR normal and moderate in the digit, Left 0.49 Dopplers DPA absent and NURSING PROGRAM MANAGER biphasic PVR thigh normal, calfand ankle moderate, metatarsal severe, and digit absent. ICD-9-CM ICD-10-CM 1. PAD (peripheral artery disease) ([facility]) 443.9 I73.[address] UPPER EXTREMITY ANGIOGRAPHY LEFT 2. Claudication of both lower extremities ([facility]) 443.9 I73.9 REFER TO VASCULAR SURGERY BASIC METABOLIC PANEL 3. Vascular claudication ([facility]) [address] ABDOMEN PELVIS ANGIOGRAPHY RUNOFF CT UPPER EXTREMITY ANGIOGRAPHY LEFT BASIC METABOLIC PANEL Patient seen with Dr. Tom. Recommend CTA abdomen, pelvis with runoff and bilateral upper extremities. This will be scheduled in 4-6 weeks due to current COVID 19 restrictions. Patient will have BMP prior to CTA. Patient denies any history of CHF. Script for Pletal 50 mg BID sent. Patient's questions answered. Patient agrees with treatment plan. Follow up with Vascular Surgery in 6 weeks to review CTA or sooner with problems. Author: Chris Gamble NP 06/16/2019 14:14 Associated attestation - Cesar Tom MD - [facility] Supervising MD Documentation Date of Service: 06/11/2019 B# [id number] I saw and evaluated the patient. Discussed with resident and agree with the resident's findings andplan as documented in the resident's note. Additional Comments: Lifestyle limiting left lower extremity claudication, current smoker. Not motivated to quit. Will start patient on Pletal Follow up with Computerized Tomographic angiography with femoral run off Cesar Tom MD Supervising Physiciandocumented in this encounter Plan of Treatment Date Type Specialty Care Team Description 06/24/2019 Nurse/Clinical Support Internal Medicine 07/28/2019 Ancillary Procedure Radiology 07/28/2019 Ancillary Procedure Radiology 07/28/2019 Office Visit Vascular Surgery Cesar Tom MD [address] [address] 09/07/2019 Office Visit Cardiology Joselin Man PA [address] [address] Name Type Priority Associated Diagnoses Order Schedule CT ABDOMEN PELVIS Imaging Routine Vascular claudication Expected: ANGIOGRAPHY RUNOFF ([facility]) 06/17/2019, Expires: 06/16/2020 CT UPPER EXTREMITY Imaging Routine PAD (peripheral artery Expected: ANGIOGRAPHY LEFT disease) ([facility]) 06/17/2019, Expires: Vascular claudication 06/16/[address] ([facility]) BASIC METABOLIC PANEL Lab Routine Claudication of both Expected: 06/17/2019 lower extremities ([facility]) (Approximate), Vascular claudication Expires: 06/16/[address] ([facility]) Health Maintenance Due Date Last Done Comments [...] of this encounter Implants Implanted Type Area Record Changer Assembler Device Shelf Model / Identifier Expiration Serial / Lot Date 2.75 X 40 Orsiro N/A: [id number] / Implanted: Qty: 1 on 12/26/2018 by Champ Fuentes MD at [facility] / [id number] 2.5 X 13 Orsiro N/A: Diagonal [id number] / Implanted: Qty: 1 on 12/26/2018 by Champ Fuentes MD at [facility] / [id number] 3.0 X 15 Orsiro N/A: [id number] / Implanted: Qty: 1 on 12/26/2018 by Champ Fuentes MD at [facility] / [id number] documented as of this encounter Results Not on filedocumented in this encounter Visit Diagnoses Diagnosis Claudication of both lower extremities (HCC) PAD (peripheral artery disease) (HCC) Peripheral vascular disease, unspecified Vascular claudication (HCC) Peripheral vascular disease, unspecified documented in this encounter Insurance Payer Benefit Plan / Subscriber ID Effective Dates Phone Address Type Group MEDICARE MEDICARE PART A [id number] 2006-Present Medicare & B MEDICAID [facility] [id number] 2016-Present Medicaid [place] (Home) [place], [place] [phone] [id number] (Work) documented as of this encounter Advance [...]
== END 2019-07-14 14:00 | disposition home or self-care (01) ==
LOC: UCEAST 13:09
DX: S82.831A Other fracture of upper and lower end of right fibula, initial encounter for closed fracture (principal); S80.811A Abrasion, right lower leg, initial encounter; W13.8XXA Fall from, out of or through other building or structure, initial encounter; Y93.89 Activity, other specified; Y92.009 Unspecified place in unspecified non-institutional (private) residence as the place of occurrence of the external cause; M85.861 Other specified disorders of bone density and structure, right lower leg; E11.9 Type 2 diabetes mellitus without complications; E78.5 Hyperlipidemia, unspecified; I10 Essential (primary) hypertension; I48.91 Unspecified atrial fibrillation; J44.9 Chronic obstructive pulmonary disease, unspecified; Z79.02 Long term (current) use of antithrombotics/antiplatelets; Z79.82 Long term (current) use of aspirin; Z79.899 Other long term (current) drug therapy; Z95.5 Presence of coronary angioplasty implant and graft; Z88.5 Allergy status to narcotic agent; Z88.2 Allergy status to sulfonamides; Z87.891 Personal history of nicotine dependence
CPT/HCPCS: 99213; G0463

== ENCOUNTER 2020-01-07 12:50 | Inpatient (IN) ==
[2020-01-07] MEDS ORDERED: Morphine 4 MG/ML VIAL (1 ml) IV ONE (12:58)
[2020-01-07 13:45] LABS: ABS Eosinophils 0.3 10^3/ul (0-0.6); ABS Lymphocytes 1.1 10^3/ul (1.0-4.8); ABS Monocytes 0.4 10^3/ul (0-0.8); ABS Neutrophils 5.6 10^3/ul (1.5-7.7); Eosinophil % 3.8 %; Hematocrit 39 % (35-47); Lymphocyte % 14.3 %; Mean Corpuscular HGB Conc 34 g/dL (31-36); Mean Corpuscular Hemoglobin 30 pg (27-31); Mean Corpuscular Volume 90 fL (80-97); Platelet Count 239 10^3/uL (150-450); Red Blood Count 4.32 10^6 /uL (3.70-4.87); Red Cell Distribution Width 15 % (10-15); White Blood Count 7.4 10^3/uL (3.5-10.8)
[2020-01-07 13:54] LABS: INR 1.13 (0.82-1.09)
[2020-01-07 14:31] LABS: Albumin 3.6 g/dL (3.2-5.2); Calcium 9.3 mg/dL (8.6-10.3); Potassium 2.9 mmol/L (3.5-5.0); Total Bilirubin 0.8 mg/dL (0.2-1.0)
[2020-01-07 14:37] LABS: BUN/Creatinine Ratio 15.5 (8-20); EGFR African American 54.7 (>60); EGFR Non-African American 45.2 (>60); Globulin 3.5 g/dL (2-4); Total Protein 7.1 g/dL (6.4-8.9)
[2020-01-07] MEDS ORDERED: Morphine 2 MG/ML SYRINGE IV PRN (14:41)
[2020-01-07] MEDS ORDERED: Ondansetron 4 mg VIAL 2 MG/ML 2 ml VIAL IV PRN (14:41)
[2020-01-07] MEDS ORDERED: Al Hydrox/Mg Hydrox/Simet LIQ 30 ML UDC PO PRN (14:41)
[2020-01-07] MEDS ORDERED: Albuterol 2.5mg/3 ml (0.083%) NEB.SOLN INH PRN (14:41)
[2020-01-07 15:37] LABS: TSH Ultra Thyroid Stim Horm 0.91 mcIU/mL (0.34-5.60)
[2020-01-07 15:41] LABS: Urine Appearance Clear; Urine Bilirubin Negative (Negative); Urine Blood 1+ (Negative); Urine Color Straw; Urine Glucose Negative (Negative); Urine Ketones Negative (Negative); Urine Nitrite Negative (Negative); Urine Protein Negative (Negative); Urine Specific Gravity 1.006 (1.010-1.030); Urine Urobilinogen Negative (Negative)
[2020-01-07] MEDS ORDERED: Potassium Chlor 20 meq TAB.ER PO ONE (15:44)
[2020-01-07 15:49] LABS: Urine Bacteria Absent (Absent); Urine Red Blood Cell Trace(0-2/hpf) (Absent); Urine Squamous Epithelial Cell Present (Absent); Urine White Blood Cell Trace(0-5/hpf) (Absent)
[2020-01-07 15:50] LABS: Vitamin D Total 25(OH) 26.5 ng/mL (20-50)
[2020-01-07] MEDS ORDERED: Ipratropium HFA INHALER(NF) (ALTERNATIVE = NEBS) INH PRN (16:07)
[2020-01-07] MEDS ORDERED: Albuterol/Ipratropium NEB.SOL (2.5/0.5 MG) 3 ML NEB.SOLN INH PRN (16:22)
[2020-01-07] MEDS ORDERED: Albuterol HFA INHALER 8 gm MDI INH PRN (16:22)
[2020-01-07] MEDS ORDERED: Dextrose 50% Syringe 50 ml 25 GM/50 ML SYRINGE IV PUSH PRN (16:25)
[2020-01-07 16:32] LABS: Magnesium 1.8 mg/dL (1.9-2.7)
[2020-01-07 16:33] LABS: Troponin I 0.01 ng/mL (<0.03)
[2020-01-07] MEDS: oxyCODONE/Acetamin 5/325 mg TAB PO PRN ×2 (17:01→22:01)
[2020-01-07] MEDS: Heparin 5000 UNITS/ML 1 mL VIAL SUBCUT SCH (22:02)
[2020-01-07] MEDS: Senna TAB 8.6 mg TAB PO SCH (22:06)
[2020-01-08] MEDS: Heparin 5000 UNITS/ML 1 mL VIAL SUBCUT SCH ×3 (07:38→22:32)
[2020-01-08 07:51] LABS: ABS Basophils 0.1 10^3/ul (0-0.2); ABS Eosinophils 0.4 10^3/ul (0-0.6); ABS Lymphocytes 1.2 10^3/ul (1.0-4.8); ABS Monocytes 0.6 10^3/ul (0-0.8); Eosinophil % 4.9 %; Hematocrit 38 % (35-47); Hemoglobin 12.8 g/dL (12.0-16.0); Lymphocyte % 16.5 %; Mean Corpuscular HGB Conc 34 g/dL (31-36); Mean Corpuscular Hemoglobin 31 pg (27-31); Mean Corpuscular Volume 90 fL (80-97); Mean Platelet Volume 7.9 fL (7.4-10.4); Nucleated Red Blood Cells % 0.1; Platelet Count 218 10^3/uL (150-450); Red Blood Count 4.16 10^6 /uL (3.70-4.87); Red Cell Distribution Width 15 % (10-15); White Blood Count 7.3 10^3/uL (3.5-10.8)
[2020-01-08 08:13] LABS: BUN/Creatinine Ratio 19.8 (8-20); EGFR African American 57.5 (>60); EGFR Non-African American 47.5 (>60); Magnesium 1.8 mg/dL (1.9-2.7); Potassium 3.6 mmol/L (3.5-5.0)
[2020-01-08] MEDS: Aspirin EC 81 mg TAB.EC (enteric coated) PO SCH ×2 (08:37→15:33)
[2020-01-08] MEDS: Senna TAB 8.6 mg TAB PO SCH ×3 (08:38→22:40)
[2020-01-08] MEDS: Venlafaxine XR 75 mg PO SCH ×2 (08:38→15:33)
[2020-01-08] MEDS: oxyCODONE/Acetamin 5/325 mg TAB PO PRN ×2 (15:21→19:54)
[2020-01-08] MEDS ORDERED: NS 0.9% 500 ml BAG 500 ML IV ONE (15:55)
[2020-01-08] MEDS ORDERED: NS 0.9% 1000 ml BAG 1,000 ML IV ONE (22:10)
[2020-01-09] MEDS: Heparin 5000 UNITS/ML 1 mL VIAL SUBCUT SCH ×5 (05:26→22:13)
[2020-01-09] MEDS: oxyCODONE/Acetamin 5/325 mg TAB PO PRN ×2 (05:26→12:27)
[2020-01-09] MEDS: Senna TAB 8.6 mg TAB PO SCH ×4 (09:56→22:11)
[2020-01-09] MEDS: Venlafaxine XR 75 mg PO SCH (09:57)
[2020-01-09] MEDS: Aspirin EC 81 mg TAB.EC (enteric coated) PO SCH (09:57)
[2020-01-09 14:22] LABS: ABS Basophils 0.1 10^3/ul (0-0.2); ABS Eosinophils 0.3 10^3/ul (0-0.6); ABS Lymphocytes 1.4 10^3/ul (1.0-4.8); ABS Monocytes 0.8 10^3/ul (0-0.8); ABS Neutrophils 5.1 10^3/ul (1.5-7.7); Eosinophil % 3.6 %; Hematocrit 38 % (35-47); Hemoglobin 12.6 g/dL (12.0-16.0); Mean Corpuscular HGB Conc 33 g/dL (31-36); Mean Corpuscular Hemoglobin 30 pg (27-31); Mean Corpuscular Volume 92 fL (80-97); Mean Platelet Volume 8.5 fL (7.4-10.4); Platelet Count 231 10^3/uL (150-450); Red Blood Count 4.15 10^6 /uL (3.70-4.87); Red Cell Distribution Width 15 % (10-15); White Blood Count 7.6 10^3/uL (3.5-10.8)
[2020-01-09 14:51] LABS: C Reactive Protein 73.98 mg/L (<8.01); Calcium 9.2 mg/dL (8.6-10.3); EGFR African American 73.3 (>60); EGFR Non-African American 60.6 (>60); Magnesium 1.7 mg/dL (1.9-2.7); Potassium 3.3 mmol/L (3.5-5.0)
[2020-01-09] MEDS ORDERED: Magnesium Sulfate 2 gm BAG 2 GM/50 ML BAG IVPB ONE (15:33)
[2020-01-09] MEDS ORDERED: Potassium Chlor 20 meq TAB.ER PO ONE (15:33)
[2020-01-10 05:33] LABS: BUN/Creatinine Ratio 20.2 (8-20); Calcium 9.1 mg/dL (8.6-10.3); EGFR African American 79.3 (>60); EGFR Non-African American 65.6 (>60)
[2020-01-10] MEDS: Heparin 5000 UNITS/ML 1 mL VIAL SUBCUT SCH (06:21)
[2020-01-10] MEDS: Enoxaparin 40 MG/0.4 ML SYR SUBCUT SCH (09:20)
[2020-01-10] MEDS: Aspirin EC 81 mg TAB.EC (enteric coated) PO SCH (09:21)
[2020-01-10] MEDS: Venlafaxine XR 75 mg PO SCH (09:21)
[2020-01-10] MEDS: Senna TAB 8.6 mg TAB PO SCH ×2 (09:22→23:37)
[2020-01-10] MEDS: Isosorbide Mononit ER 30mg TAB PO SCH (10:15)
[2020-01-10 10:42] LABS: C Reactive Protein 64.61 mg/L (<8.01)
[2020-01-11] MEDS: Enoxaparin 40 MG/0.4 ML SYR SUBCUT SCH (09:58)
[2020-01-11] MEDS: Isosorbide Mononit ER 30mg TAB PO SCH (09:59)
[2020-01-11] MEDS: Senna TAB 8.6 mg TAB PO SCH ×2 (10:00→21:28)
[2020-01-11] MEDS: Aspirin EC 81 mg TAB.EC (enteric coated) PO SCH (10:03)
[2020-01-11] MEDS: Venlafaxine XR 75 mg PO SCH (10:03)
[2020-01-12] MEDS: Venlafaxine XR 75 mg PO SCH (08:24)
[2020-01-12] MEDS: Isosorbide Mononit ER 30mg TAB PO SCH (08:24)
[2020-01-12] MEDS: Enoxaparin 40 MG/0.4 ML SYR SUBCUT SCH (08:25)
[2020-01-12] MEDS: Senna TAB 8.6 mg TAB PO SCH ×2 (08:25→21:18)
[2020-01-13] MEDS: Senna TAB 8.6 mg TAB PO SCH ×2 (08:31→21:15)
[2020-01-13] MEDS: Venlafaxine XR 75 mg PO SCH (08:37)
[2020-01-13] MEDS: Isosorbide Mononit ER 30mg TAB PO SCH (08:37)
[2020-01-13] MEDS: Enoxaparin 40 MG/0.4 ML SYR SUBCUT SCH (08:38)
[2020-01-14] MEDS: oxyCODONE/Acetamin 5/325 mg TAB PO PRN (00:53)
[2020-01-14] MEDS: Venlafaxine XR 75 mg PO SCH (09:46)
[2020-01-14] MEDS: Isosorbide Mononit ER 30mg TAB PO SCH (09:47)
[2020-01-14] MEDS: Enoxaparin 40 MG/0.4 ML SYR SUBCUT SCH (09:47)
[2020-01-14] MEDS: Senna TAB 8.6 mg TAB PO SCH (09:47)
[2020-01-14 11:22] VITALS: BP 113/54
== END 2020-01-14 13:20 | DRG 536 ==
LOC: ED 12:50 → SSU 14:41
PROVIDERS: ADMIT Pediatrics; ATTEND Hospitalist

== ENCOUNTER 2020-01-16 15:39 | Inpatient (IN) ==
[2020-01-16] MEDS ORDERED: Morphine 4 MG/ML VIAL (1 ml) IV ONE ×3 (15:49→22:32)
[2020-01-16] MEDS ORDERED: Ondansetron 4 mg VIAL 2 MG/ML 2 ml VIAL IV ONE (16:03)
[2020-01-16 17:11] LABS: ABS Basophils 0.1 10^3/ul (0-0.2); ABS Eosinophils 0.3 10^3/ul (0-0.6); ABS Lymphocytes 1.6 10^3/ul (1.0-4.8); ABS Monocytes 0.8 10^3/ul (0-0.8); ABS Neutrophils 8.2 10^3/ul (1.5-7.7); Eosinophil % 3.1 %; Hematocrit 35 % (35-47); Hemoglobin 11.7 g/dL (12.0-16.0); Lymphocyte % 14.3 %; Mean Corpuscular HGB Conc 33 g/dL (31-36); Mean Corpuscular Hemoglobin 30 pg (27-31); Mean Corpuscular Volume 90 fL (80-97); Mean Platelet Volume 7.8 fL (7.4-10.4); Platelet Count 436 10^3/uL (150-450); Red Blood Count 3.91 10^6 /uL (3.70-4.87); Red Cell Distribution Width 15 % (10-15); White Blood Count 11.1 10^3/uL (3.5-10.8)
[2020-01-16 17:27] LABS: INR 1.1 (0.82-1.09)
[2020-01-16 17:29] LABS: Albumin 3.6 g/dL (3.2-5.2); BUN/Creatinine Ratio 25.6 (8-20); Calcium 9.7 mg/dL (8.6-10.3); EGFR African American 81.6 (>60); EGFR Non-African American 67.4 (>60); Globulin 3.7 g/dL (2-4); Potassium 3.6 mmol/L (3.5-5.0); Total Bilirubin 0.5 mg/dL (0.2-1.0); Total Protein 7.3 g/dL (6.4-8.9)
[2020-01-16] MEDS ORDERED: NS 0.9% 1000 ml BAG 1,000 ML IV SCH (22:30)
[2020-01-16] MEDS: Morphine 2 MG/ML SYRINGE IV PRN (22:48)
[2020-01-16] MEDS ORDERED: Heparin 5000 UNITS/ML 1 mL VIAL SUBCUT SCH (23:00)
[2020-01-17] MEDS: Morphine 2 MG/ML SYRINGE IV PRN ×2 (03:06→05:58)
[2020-01-17 06:03] LABS: CO2 Carbon Dioxide 21 mmol/L (22-32); Calcium 8.8 mg/dL (8.6-10.3); Chloride 104 mmol/L (101-111); Sodium 135 mmol/L (135-145)
[2020-01-17 06:06] LABS: Anion Gap 10 mmol/L (2-11)
[2020-01-17 06:09] LABS: Blood Urea Nitrogen 24 mg/dL (6-24); EGFR African American 74.2 (>60); EGFR Non-African American 61.3 (>60); Glucose 119 mg/dL (70-100)
[2020-01-17] MEDS ORDERED: Dextrose 50% Syringe 50 ml 25 GM/50 ML SYRINGE IV PUSH PRN (07:51)
[2020-01-17] MEDS ORDERED: Omeprazole 20 mg CAP (NF) PO SCH (09:00)
[2020-01-17 10:12] LABS: ABS Basophils 0.1 10^3/ul (0-0.2); ABS Eosinophils 0.3 10^3/ul (0-0.6); ABS Lymphocytes 1.6 10^3/ul (1.0-4.8); ABS Monocytes 0.9 10^3/ul (0-0.8); ABS Neutrophils 6.4 10^3/ul (1.5-7.7); Eosinophil % 2.8 %; Hematocrit 34 % (35-47); Hemoglobin 11.2 g/dL (12.0-16.0); Lymphocyte % 17.4 %; Mean Corpuscular HGB Conc 33 g/dL (31-36); Mean Corpuscular Hemoglobin 30 pg (27-31); Mean Corpuscular Volume 91 fL (80-97); Platelet Count 366 10^3/uL (150-450); Red Blood Count 3.73 10^6 /uL (3.70-4.87); Red Cell Distribution Width 15 % (10-15); White Blood Count 9.1 10^3/uL (3.5-10.8)
[2020-01-17] MEDS: Heparin 5000 UNITS/ML 1 mL VIAL SUBCUT SCH ×2 (11:26→18:10)
[2020-01-17] MEDS: Isosorbide Mononit ER 30mg TAB PO SCH (11:26)
[2020-01-17] MEDS: Venlafaxine XR 75 mg PO SCH (11:27)
[2020-01-18] MEDS: Heparin 5000 UNITS/ML 1 mL VIAL SUBCUT SCH ×3 (02:14→18:15)
[2020-01-18] MEDS: Aspirin EC 81 mg TAB.EC (enteric coated) PO SCH (08:16)
[2020-01-18] MEDS: Isosorbide Mononit ER 30mg TAB PO SCH (08:17)
[2020-01-18] MEDS: Venlafaxine XR 75 mg PO SCH (08:18)
[2020-01-18 12:41] LABS: ABS Basophils 0.1 10^3/ul (0-0.2); ABS Eosinophils 0.2 10^3/ul (0-0.6); ABS Lymphocytes 1.6 10^3/ul (1.0-4.8); ABS Monocytes 0.8 10^3/ul (0-0.8); ABS Neutrophils 7.4 10^3/ul (1.5-7.7); Eosinophil % 1.6 %; Hematocrit 34 % (35-47); Hemoglobin 11.6 g/dL (12.0-16.0); Lymphocyte % 16.2 %; Mean Corpuscular HGB Conc 34 g/dL (31-36); Mean Corpuscular Hemoglobin 31 pg (27-31); Mean Corpuscular Volume 90 fL (80-97); Mean Platelet Volume 7.8 fL (7.4-10.4); Platelet Count 390 10^3/uL (150-450); Red Blood Count 3.79 10^6 /uL (3.70-4.87); Red Cell Distribution Width 15 % (10-15); White Blood Count 10.1 10^3/uL (3.5-10.8)
[2020-01-18] MEDS: Morphine 2 MG/ML SYRINGE IV PRN (12:41)
[2020-01-18 13:01] LABS: BUN/Creatinine Ratio 24.3 (8-20); Calcium 9.2 mg/dL (8.6-10.3); EGFR African American 91.8 (>60); EGFR Non-African American 75.9 (>60); Potassium 3.4 mmol/L (3.5-5.0)
[2020-01-18] MEDS ORDERED: Potassium Chlor 20 meq TAB.ER PO ONE (17:44)
[2020-01-19] MEDS: Morphine 2 MG/ML SYRINGE IV PRN (02:07)
[2020-01-19] MEDS: Heparin 5000 UNITS/ML 1 mL VIAL SUBCUT SCH ×2 (02:07→10:25)
[2020-01-19] MEDS: Venlafaxine XR 75 mg PO SCH (08:32)
[2020-01-19] MEDS: Aspirin EC 81 mg TAB.EC (enteric coated) PO SCH (08:32)
[2020-01-19] MEDS: Isosorbide Mononit ER 30mg TAB PO SCH (08:32)
[2020-01-19 15:30] VITALS: BP 124/62
== END 2020-01-19 16:35 | DRG 562 ==
LOC: ED 15:39 → SSU 22:24
PROVIDERS: ADMIT Internal Medicine Interventional Cardiology; ATTEND Internal Medicine

== ENCOUNTER 2020-05-30 18:29 | Inpatient (IN) ==
[2020-05-30] MEDS ORDERED: NS 0.9% 1000 ml BAG 1,000 ML IV ONE (18:39)
[2020-05-30 21:38] LABS: Acetaminophen < 15 mcg/mL; Alcohol, S < 10 mg/dL (<10); Salicylate < 2.50 mg/dL (<30); Troponin I 0.01 ng/mL (<0.03)
[2020-05-30 21:49] LABS: TSH Ultra Thyroid Stim Horm 0.47 mcIU/mL (0.34-5.60)
[2020-05-30 21:55] LABS: Urine Appearance Cloudy; Urine Bilirubin Negative (Negative); Urine Blood Negative (Negative); Urine Color Yellow; Urine Glucose Negative (Negative); Urine Ketones Negative (Negative); Urine Nitrite Negative (Negative); Urine Protein 1+(30 mg/dL) (Negative); Urine Specific Gravity 1.012 (1.010-1.030); Urine Urobilinogen Negative (Negative)
[2020-05-30 22:14] LABS: Urine Bacteria Absent (Absent); Urine Red Blood Cell Absent (Absent); Urine White Blood Cell Trace(0-5/hpf) (Absent)
[2020-05-30 22:50] LABS: Urine Benzodiazepine Screen None Detected (None Detect); Urine Cannabinoids Screen None Detected (None Detect); Urine Opiates Screen Presumptive Positive (None Detect)
[2020-05-31 00:17] LABS: ABS Basophils 0.1 10^3/ul (0-0.2); ABS Eosinophils 0.3 10^3/ul (0-0.6); ABS Lymphocytes 1.7 10^3/ul (1.0-4.8); ABS Monocytes 0.6 10^3/ul (0-0.8); ABS Neutrophils 4.8 10^3/ul (1.5-7.7); Eosinophil % 3.6 %; Hematocrit 34 % (35-47); Hemoglobin 11.5 g/dL (12.0-16.0); Mean Corpuscular HGB Conc 34 g/dL (31-36); Mean Corpuscular Hemoglobin 30 pg (27-31); Mean Corpuscular Volume 89 fL (80-97); Mean Platelet Volume 8.3 fL (7.4-10.4); Platelet Count 185 10^3/uL (150-450); Red Blood Count 3.78 10^6 /uL (3.70-4.87); Red Cell Distribution Width 15 % (10-15); White Blood Count 7.4 10^3/uL (3.5-10.8)
[2020-05-31 00:26] LABS: INR 1.03 (0.82-1.09)
[2020-05-31 00:34] LABS: Albumin 3.1 g/dL (3.2-5.2); Albumin/Globulin Ratio 1.1 (1-3); Calcium 8.5 mg/dL (8.6-10.3); EGFR African American 71.3 (>60); EGFR Non-African American 58.9 (>60); Globulin 2.8 g/dL (2-4); Total Bilirubin 0.4 mg/dL (0.2-1.0); Total Protein 5.9 g/dL (6.4-8.9)
[2020-05-31 00:36] LABS: Potassium 2.7 mmol/L (3.5-5.0)
[2020-05-31] MEDS ORDERED: Potassium Chloride LIQUID 20 MEQ/15 ML LIQUID PO ONE (00:39)
[2020-05-31] MEDS ORDERED: LORazepam 2 mg VIAL 1 ml IV PUSH ONE (04:00)
[2020-05-31] MEDS ORDERED: Lorazepam PYXIS KEY PRN ×2 (04:00→04:39)
[2020-05-31] MEDS ORDERED: Lorazepam PYXIS KEY ONE (04:03)
[2020-05-31 04:13] LABS: Magnesium 1.6 mg/dL (1.9-2.7)
[2020-05-31] MEDS ORDERED: LORazepam 2 mg VIAL 1 ml IM ONE (04:39)
[2020-05-31] MEDS ORDERED: Magnesium Sulfate 2 gm BAG 2 GM/50 ML BAG IVPB ONE (06:26)
[2020-05-31] MEDS: Enoxaparin 40 MG/0.4 ML SYR SUBCUT SCH (06:36)
[2020-05-31] MEDS: KCL 20 MEQ/100 ML IVPREMIX 20 MEQ/100 ML BAG IV SCH ×2 (06:36→08:58)
[2020-05-31 07:21] LABS: BUN/Creatinine Ratio 10.8 (8-20); Calcium 8.8 mg/dL (8.6-10.3); EGFR African American 70.4 (>60); EGFR Non-African American 58.2 (>60); Potassium 3.1 mmol/L (3.5-5.0)
[2020-05-31] MEDS ORDERED: Magnesium Sulfate IV 3 GM in NS 0.9% 100 ml BAG 100 ML IVPB ONE (08:15)
[2020-05-31] MEDS ORDERED: Potassium Chlor 20 meq TAB.ER PO ONE (08:36)
[2020-05-31 09:13] LABS: Magnesium 1.7 mg/dL (1.9-2.7)
[2020-05-31] MEDS ORDERED: Albuterol HFA INHALER 8 gm MDI INH PRN (16:49)
[2020-05-31] MEDS ORDERED: Albuterol HFA INHALER 8 gm MDI INH SCH (17:00)
[2020-05-31] MEDS: Mometasone/Formoter 100/5 MDI INH SCH (20:15)
[2020-06-01 05:33] LABS: CO2 Carbon Dioxide 21 mmol/L (22-32); Calcium 9.2 mg/dL (8.6-10.3); Chloride 108 mmol/L (101-111); Magnesium 2.2 mg/dL (1.9-2.7); Sodium 138 mmol/L (135-145)
[2020-06-01 05:39] LABS: Anion Gap 9 mmol/L (2-11); BUN/Creatinine Ratio 11.4 (8-20); Blood Urea Nitrogen 9 mg/dL (6-24); EGFR African American 84.9 (>60); EGFR Non-African American 70.2 (>60); Glucose 91 mg/dL (70-100)
[2020-06-01] MEDS: Enoxaparin 40 MG/0.4 ML SYR SUBCUT SCH (06:05)
[2020-06-01] MEDS: Mometasone/Formoter 100/5 MDI INH SCH ×2 (08:29→19:39)
[2020-06-01] MEDS: Isosorbide Mononit ER 30mg TAB PO SCH ×2 (08:57→09:59)
[2020-06-01] MEDS ORDERED: Haloperidol 5 mg/ml SDV IV/IM 5 MG/ML AMP IV SLOW PU ONE (09:16)
[2020-06-01] MEDS ORDERED: Haloperidol 5 mg/ml SDV IV/IM 5 MG/ML AMP ONE (09:20)
[2020-06-01] MEDS ORDERED: POTASSIUM CITRATE 15 MEQ PO SCH (21:00)
[2020-06-02] MEDS: Enoxaparin 40 MG/0.4 ML SYR SUBCUT SCH (06:08)
[2020-06-02] MEDS: Isosorbide Mononit ER 30mg TAB PO SCH (08:05)
[2020-06-02] MEDS: Mometasone/Formoter 100/5 MDI INH SCH (08:20)
[2020-06-02] MEDS ORDERED: Venlafaxine XR 75 mg PO SCH (10:00)
[2020-06-02 16:10] VITALS: BP 120/61
== END 2020-06-02 15:51 | disposition home or self-care (01) | DRG 884 ==
LOC: ED 18:29 → MEDTELE 05-31 01:50 → SUATTDRO 05-31 01:50 → MEDTELE 05-31 06:07
PROVIDERS: ADMIT Internal Medicine; ATTEND Internal Medicine

== ENCOUNTER 2023-04-14 18:06 | Inpatient (IN) ==
[2023-04-14] MEDS ORDERED: Acetaminophen IV 1 GM/100ML 1,000 MG/100 ML BAG IV ONE (18:58)
[2023-04-14 19:27] LABS: ABS Basophils 0.1 10^3/uL (0.0-0.1); ABS Eosinophils 0.3 10^3/uL (0.0-0.5); ABS Lymphocytes 1.5 10^3/uL (1.0-4.8); ABS Monocytes 0.5 10^3/uL (0.0-0.9); ABS Neutrophils 3.7 10^3/uL (1.5-7.6); Eosinophil % 4.2 %; Hematocrit 36.1 % (35-45); Hemoglobin 12.2 g/dL (11.5-14.3); Lymphocyte % 24.2 %; Mean Corpuscular Hemoglobin 30.6 pg (27-33); Mean Corpuscular Hgb Conc 33.7 g/dL (31-36); Mean Corpuscular Volume 90.9 fL (80-97); Platelet Count 281 10^3/uL (150-450); Red Blood Count 3.97 10^6/uL (3.63-4.92); Red Cell Distribution Width 15.2 % (12-17)
[2023-04-14] MEDS ORDERED: Iodixanol (CONTRAST) 320 MG/ML 100 ML SDV IV ONE (19:31)
[2023-04-14 19:44] LABS: Albumin 3.4 g/dL (3.2-5.2); Albumin/Globulin Ratio 1.2 (1-3); Creatinine, Serum 0.93 mg/dL (0.51-0.95); Globulin 2.9 g/dL (2-4); Potassium 3.3 mmol/L (3.5-5.0); Total Bilirubin 0.3 mg/dL (0.2-1.0); Total Protein 6.3 g/dL (6.4-8.9); eGFR CKD-EPI 61.7 (>60)
[2023-04-14] MEDS ORDERED: Heparin DRIP 25,000 UNITS BAG 25,000 UNITS/250 ML BAG IV SCH (20:45)
[2023-04-14] MEDS ORDERED: Al Hydrox/Mg Hydrox/Simet LIQ 30 ML UDC PO PRN (20:48)
[2023-04-14] MEDS ORDERED: Potassium Chlor 20 meq TAB.ER PO ONE (20:52)
[2023-04-14 20:53] LABS: High Sensitivity Troponin 1 Hr 309 pg/mL (<15)
[2023-04-14] MEDS ORDERED: Heparin 5000 UNITS/ML 1 mL VIAL IV SCH (21:00)
[2023-04-14] MEDS ORDERED: Morphine 2 MG/ML SYRINGE IV PRN ×2 (22:10→23:20)
[2023-04-14] MEDS ORDERED: Acetaminophen IV 1 GM/100ML 1,000 MG/100 ML BAG IV SCH (22:15)
[2023-04-15] MEDS: Acetaminophen IV 1 GM/100ML 1,000 MG/100 ML BAG IV SCH ×4 (02:03→20:43)
[2023-04-15] MEDS: Venlafaxine XR 75 mg PO SCH (08:44)
[2023-04-15] MEDS: Aspirin EC 81 mg TAB.EC (enteric coated) PO SCH (08:44)
[2023-04-15 09:16] LABS: ABS Basophils 0.1 10^3/uL (0.0-0.1); ABS Eosinophils 0.3 10^3/uL (0.0-0.5); ABS Lymphocytes 1.7 10^3/uL (1.0-4.8); ABS Monocytes 0.6 10^3/uL (0.0-0.9); ABS Neutrophils 3.5 10^3/uL (1.5-7.6); ABS Nucleated RBC 0.01 10^3/ul; Eosinophil % 4.8 %; Hematocrit 35.5 % (35-45); Lymphocyte % 27.1 %; Mean Corpuscular Hemoglobin 30.5 pg (27-33); Mean Corpuscular Hgb Conc 33.8 g/dL (31-36); Mean Platelet Volume 8.1 fL (7.5-11.2); Nucleated Red Blood Cells % 0.2 %/100WBC (0.0-0.8); Platelet Count 269 10^3/uL (150-450); Red Blood Count 3.95 10^6/uL (3.63-4.92); Red Cell Distribution Width 14.8 % (12-17); White Blood Count 6.1 10^3/uL (3.8-11.8)
[2023-04-15 09:54] LABS: Calcium 9.3 mg/dL (8.6-10.3); Creatinine, Serum 0.84 mg/dL (0.51-0.95); Magnesium 1.8 mg/dL (1.9-2.7); Potassium 3.8 mmol/L (3.5-5.0); eGFR CKD-EPI 69.8 (>60)
[2023-04-15 10:51] LABS: Urine Appearance Clear; Urine Bilirubin Negative (Negative); Urine Blood Negative (Negative); Urine Color Yellow; Urine Glucose Negative (Negative); Urine Ketones Negative (Negative); Urine Nitrite Negative (Negative); Urine Protein Negative (Negative); Urine Specific Gravity 1.041 (1.002-1.030); Urine Urobilinogen Positive (Negative)
[2023-04-15 11:02] LABS: Urine Bacteria Absent (Absent); Urine Red Blood Cell 1+(3-5/hpf) (Absent); Urine Squamous Epithelial Cell Present (Absent); Urine White Blood Cell 1+(6-10/hpf) (Absent)
[2023-04-15] MEDS: Isosorbide Mononit ER 30mg TAB PO SCH (11:14)
[2023-04-15] MEDS ORDERED: Sulfur Hexaflouride MICROSPHR 25 MG VIAL ONE (12:31)
[2023-04-15] MEDS ORDERED: Haloperidol 5 mg/ml SDV IV/IM 5 MG/ML AMP IV SLOW PU ONE (16:49)
[2023-04-15] MEDS ORDERED: Magnesium Sulfate 2 gm BAG 2 GM/50 ML BAG IVPB ONE (19:29)
[2023-04-16] MEDS: Acetaminophen IV 1 GM/100ML 1,000 MG/100 ML BAG IV SCH ×4 (01:54→22:38)
[2023-04-16 07:04] LABS: ABS Basophils 0.1 10^3/uL (0.0-0.1); ABS Eosinophils 0.3 10^3/uL (0.0-0.5); ABS Lymphocytes 1.8 10^3/uL (1.0-4.8); ABS Monocytes 0.6 10^3/uL (0.0-0.9); ABS Neutrophils 2.7 10^3/uL (1.5-7.6); Eosinophil % 6.3 %; Hematocrit 37.7 % (35-45); Hemoglobin 12.6 g/dL (11.5-14.3); Lymphocyte % 33.4 %; Mean Corpuscular Hemoglobin 30.4 pg (27-33); Mean Corpuscular Hgb Conc 33.4 g/dL (31-36); Mean Platelet Volume 8.3 fL (7.5-11.2); Platelet Count 284 10^3/uL (150-450); Red Blood Count 4.14 10^6/uL (3.63-4.92); White Blood Count 5.5 10^3/uL (3.8-11.8)
[2023-04-16 07:18] LABS: Creatinine, Serum 0.86 mg/dL (0.51-0.95); eGFR CKD-EPI 67.8 (>60)
[2023-04-16 07:48] LABS: Calcium 9.3 mg/dL (8.6-10.3); Magnesium 2.6 mg/dL (1.9-2.7); Potassium 3.8 mmol/L (3.5-5.0)
[2023-04-16] MEDS: Venlafaxine XR 75 mg PO SCH (08:27)
[2023-04-16] MEDS: Isosorbide Mononit ER 30mg TAB PO SCH (08:28)
[2023-04-16] MEDS: Aspirin EC 81 mg TAB.EC (enteric coated) PO SCH (08:28)
[2023-04-17] MEDS: Acetaminophen IV 1 GM/100ML 1,000 MG/100 ML BAG IV SCH ×4 (04:15→19:54)
[2023-04-17] MEDS ORDERED: Senna TAB 8.6 mg TAB PO PRN (04:30)
[2023-04-17] MEDS ORDERED: Magnesium Hydroxide LIQ 30 ML UDC PO PRN (04:30)
[2023-04-17] MEDS ORDERED: Polyethylene Glycol 3350 17 GM PACKET PO PRN (04:30)
[2023-04-17] MEDS: Isosorbide Mononit ER 30mg TAB PO SCH (09:28)
[2023-04-17] MEDS: Aspirin EC 81 mg TAB.EC (enteric coated) PO SCH (09:28)
[2023-04-17] MEDS: Venlafaxine XR 75 mg PO SCH (09:29)
[2023-04-17] MEDS: Magnesium Hydroxide LIQ 30 ML UDC PO SCH ×2 (09:29→20:41)
[2023-04-17 10:34] LABS: ABS Eosinophils 0.3 10^3/uL (0.0-0.5); ABS Lymphocytes 1.8 10^3/uL (1.0-4.8); ABS Monocytes 0.5 10^3/uL (0.0-0.9); ABS Neutrophils 5.1 10^3/uL (1.5-7.6); Eosinophil % 3.7 %; Hematocrit 36.8 % (35-45); Hemoglobin 12.3 g/dL (11.5-14.3); Lymphocyte % 23.2 %; Mean Corpuscular Hemoglobin 30.4 pg (27-33); Mean Corpuscular Hgb Conc 33.3 g/dL (31-36); Mean Corpuscular Volume 91.3 fL (80-97); Mean Platelet Volume 8.3 fL (7.5-11.2); Platelet Count 286 10^3/uL (150-450); Red Blood Count 4.04 10^6/uL (3.63-4.92); Red Cell Distribution Width 14.8 % (12-17); White Blood Count 7.7 10^3/uL (3.8-11.8)
[2023-04-18] MEDS: Acetaminophen IV 1 GM/100ML 1,000 MG/100 ML BAG IV SCH ×3 (02:09→14:20)
[2023-04-18 06:09] LABS: ABS Basophils 0.1 10^3/uL (0.0-0.1); ABS Eosinophils 0.3 10^3/uL (0.0-0.5); ABS Monocytes 0.6 10^3/uL (0.0-0.9); ABS Neutrophils 4.8 10^3/uL (1.5-7.6); ABS Nucleated RBC 0.01 10^3/ul; Eosinophil % 3.8 %; Hematocrit 36.6 % (35-45); Hemoglobin 12.4 g/dL (11.5-14.3); Lymphocyte % 25.4 %; Mean Corpuscular Hemoglobin 30.8 pg (27-33); Mean Corpuscular Hgb Conc 33.8 g/dL (31-36); Mean Corpuscular Volume 91.1 fL (80-97); Mean Platelet Volume 8.4 fL (7.5-11.2); Nucleated Red Blood Cells % 0.1 %/100WBC (0.0-0.8); Platelet Count 274 10^3/uL (150-450); Red Blood Count 4.01 10^6/uL (3.63-4.92); Red Cell Distribution Width 15.3 % (12-17); White Blood Count 7.7 10^3/uL (3.8-11.8)
[2023-04-18 06:28] LABS: Creatinine, Serum 0.8 mg/dL (0.51-0.95)
[2023-04-18] MEDS: Venlafaxine XR 75 mg PO SCH (08:22)
[2023-04-18] MEDS: Isosorbide Mononit ER 30mg TAB PO SCH (08:22)
[2023-04-18] MEDS: Aspirin EC 81 mg TAB.EC (enteric coated) PO SCH (08:23)
[2023-04-18] MEDS: Magnesium Hydroxide LIQ 30 ML UDC PO SCH (08:40)
[2023-04-18 14:49] VITALS: BP 119/67
== END 2023-04-18 14:58 | disposition home or self-care (01) | DRG 183 ==
LOC: EDHOLD 18:06 → ED 18:06 → SUATTDRO 20:48 → MEDTELE 04-15 15:30 → SUATTDRO 04-16 12:36
PROVIDERS: ADMIT Internal Medicine; ATTEND Student in an Organized Health Care Education/Training Program

== ENCOUNTER 2023-12-02 12:56 | Inpatient (IN) ==
[2023-12-02 13:24] LABS: ABS Basophils 0.1 10^3/uL (0.0-0.1); ABS Eosinophils 0.3 10^3/uL (0.0-0.5); ABS Lymphocytes 1.9 10^3/uL (1.0-4.8); ABS Monocytes 0.6 10^3/uL (0.0-0.9); ABS Neutrophils 4.2 10^3/uL (1.5-7.6); ABS Nucleated RBC 0.01 10^3/ul; Eosinophil % 4.6 %; Hematocrit 19.5 % (35-45); Hemoglobin 6.1 g/dL (11.5-14.3); Lymphocyte % 26.2 %; Mean Corpuscular Hemoglobin 27.4 pg (27-33); Mean Corpuscular Volume 88.4 fL (80-97); Mean Platelet Volume 8.3 fL (7.5-11.2); Nucleated Red Blood Cells % 0.2 %/100WBC (0.0-0.8); Platelet Count 297 10^3/uL (150-450); Red Blood Count 2.21 10^6/uL (3.63-4.92); Red Cell Distribution Width 17.2 % (12-17); White Blood Count 7.1 10^3/uL (3.8-11.8)
[2023-12-02 13:45] LABS: Albumin 3.7 g/dL (3.2-5.2); Albumin/Globulin Ratio 1.3 (1-3); Calcium 8.1 mg/dL (8.6-10.3); Creatinine, Serum 0.77 mg/dL (0.51-0.95); Globulin 2.8 g/dL (2-4); Potassium 3.6 mmol/L (3.5-5.0); Total Bilirubin 0.2 mg/dL (0.2-1.0); Total Protein 6.5 g/dL (6.4-8.9)
[2023-12-02 15:00] LABS: High Sensitivity Troponin 1 Hr 11 pg/mL (<15)
[2023-12-02] MEDS: Furosemide 40 mg/4 ml IV VIAL IV ONE (15:00)
[2023-12-02] MEDS ORDERED: Sulfur Hexaflouride MICROSPHR 25 MG VIAL IV PRN (16:48)
[2023-12-02 17:46] LABS: % Iron Saturation 7 % (15-55); .Transferrin 320 mg/dL (203-362); Iron 30 ug/dL (50-212); Total Iron Binding Capacity 448 mcg/dL (250-450); Unsaturated Iron Binding 418 ug/dL
[2023-12-02] MEDS: methylPREDNISolone SOD SUCC 40 mg/ml 1 ml VIAL IV SCH (18:06)
[2023-12-02] MEDS: Furosemide 20 mg/2 ml IV VIAL IV ONE (18:06)
[2023-12-02 18:07] LABS: Ferritin 12.1 ng/mL (11-307)
[2023-12-02] MEDS: Azithromycin 500 mg/250 ml NS 500 MG/250 ML BAG IVPB SCH (18:09)
[2023-12-02 18:10] LABS: Folate > 20.00 ng/mL (5.90-24.80)
[2023-12-02 18:11] LABS: Vitamin B12 374 pg/mL (180-914)
[2023-12-02 18:38] LABS: Immature Retic Fraction 0.63
[2023-12-02 18:45] LABS: Corrected Retic Count 1.1 % (0.5-2.2); Hematocrit for Retic CNT 17.5 % (35-45); RBC Retic Count 1.95 10^6/ul (3.63-4.92)
[2023-12-02] MEDS: Albuterol/Ipratropium NEB.SOL (2.5/0.5 MG) 3 ML NEB.SOLN INH SCH (19:43)
[2023-12-02] MEDS: Pantoprazole VIAL 40 MG VIAL IV SCH (21:56)
[2023-12-03 00:35] LABS: Hematocrit 26.2 % (35-45); Hemoglobin 8.6 g/dL (11.5-14.3)
[2023-12-03 06:05] LABS: Calcium 8.5 mg/dL (8.6-10.3); Creatinine, Serum 0.75 mg/dL (0.51-0.95); Magnesium 1.6 mg/dL (1.9-2.7); Potassium 3.2 mmol/L (3.5-5.0); eGFR CKD-EPI 79.4 (>60)
[2023-12-03 06:13] LABS: Mean Corpuscular Hemoglobin 29.4 pg (27-33); Mean Corpuscular Hgb Conc 33.5 g/dL (31-36); Mean Corpuscular Volume 87.8 fL (80-97); Red Blood Count 3.07 10^6/uL (3.63-4.92); Red Cell Distribution Width 16.3 % (12-17); White Blood Count 5.7 10^3/uL (3.8-11.8)
[2023-12-03 06:37] LABS: INR 1.25 (0.85-1.14)
[2023-12-03 06:55] LABS: ABS Lymphocytes 0.9 10^3/uL (1.0-4.8); ABS Monocytes 0.2 10^3/uL (0.0-0.9); ABS Neutrophils 4.6 10^3/uL (1.5-7.6); ABS Nucleated RBC 0.01 10^3/ul; Large Platelets Present; Lymphocyte % 15.6 %; Mean Platelet Volume 8.6 fL (7.5-11.2); Nucleated Red Blood Cells % 0.2 %/100WBC (0.0-0.8); Platelet Count 272 10^3/uL (150-450)
[2023-12-03] MEDS: Venlafaxine XR 75 mg PO SCH (08:07)
[2023-12-03] MEDS: Magnesium Sulf 4 GM/100 ML IV 4,000 MG/100 ML BAG IVPB ONE (08:07)
[2023-12-03] MEDS: KCL 20 MEQ/100 ML IVPREMIX 20 MEQ/100 ML BAG IV SCH (12:04)
[2023-12-03] MEDS: Furosemide 40 mg/4 ml IV VIAL IV ONE (12:04)
[2023-12-03] MEDS: cefTRIAXone 1 gm/50 mL D5W 1 GM/50 ML BAG IV SCH (12:31)
[2023-12-03] MEDS: Ferric Gluconate IV 125 MG in NS 0.9% 100 ml BAG 100 ML IVPB ONE (14:03)
[2023-12-03] MEDS: Potassium EFFERVES 25 meq TAB PO ONE (16:21)
[2023-12-03] MEDS: Isosorbide Mononit ER 30mg TAB PO SCH (18:02)
[2023-12-04 06:48] LABS: ABS Lymphocytes 1.1 10^3/uL (1.0-4.8); ABS Monocytes 0.7 10^3/uL (0.0-0.9); ABS Neutrophils 9.4 10^3/uL (1.5-7.6); ABS Nucleated RBC 0.06 10^3/ul; Hematocrit 26.5 % (35-45); Hemoglobin 8.7 g/dL (11.5-14.3); Lymphocyte % 10.1 %; Mean Corpuscular Hemoglobin 28.6 pg (27-33); Mean Corpuscular Hgb Conc 32.9 g/dL (31-36); Mean Corpuscular Volume 86.9 fL (80-97); Mean Platelet Volume 8.8 fL (7.5-11.2); Nucleated Red Blood Cells % 0.5 %/100WBC (0.0-0.8); Platelet Count 282 10^3/uL (150-450); Red Blood Count 3.04 10^6/uL (3.63-4.92); Red Cell Distribution Width 16.3 % (12-17); White Blood Count 11.3 10^3/uL (3.8-11.8)
[2023-12-04 07:33] LABS: Calcium 8.5 mg/dL (8.6-10.3); Creatinine, Serum 0.73 mg/dL (0.51-0.95); Magnesium 2.2 mg/dL (1.9-2.7); Potassium 3.5 mmol/L (3.5-5.0); eGFR CKD-EPI 82.1 (>60)
[2023-12-04] MEDS: Furosemide 20 mg/2 ml IV VIAL IV ONE (10:23)
[2023-12-04] MEDS: Ferric Gluconate IV 250 MG in NS 0.9% 250 ml 200 ML IVPB SCH (11:00)
[2023-12-04] MEDS: PEG 3000 GI LAVAGE 1 GALLON PO ONE (17:43)
[2023-12-05] MEDS: PEG 3000 GI LAVAGE 1 GALLON PO ONE (05:06)
[2023-12-05 05:56] LABS: ABS Lymphocytes 1.7 10^3/uL (1.0-4.8); ABS Monocytes 1.1 10^3/uL (0.0-0.9); ABS Neutrophils 6.8 10^3/uL (1.5-7.6); ABS Nucleated RBC 0.03 10^3/ul; Eosinophil % 0.1 %; Hematocrit 29.6 % (35-45); Hemoglobin 9.6 g/dL (11.5-14.3); Lymphocyte % 17.4 %; Mean Corpuscular Hemoglobin 28.4 pg (27-33); Mean Corpuscular Hgb Conc 32.3 g/dL (31-36); Mean Platelet Volume 8.9 fL (7.5-11.2); Nucleated Red Blood Cells % 0.3 %/100WBC (0.0-0.8); Platelet Count 304 10^3/uL (150-450); Red Blood Count 3.37 10^6/uL (3.63-4.92); Red Cell Distribution Width 16.6 % (12-17); White Blood Count 9.6 10^3/uL (3.8-11.8)
[2023-12-05 06:11] LABS: Calcium 8.8 mg/dL (8.6-10.3); Creatinine, Serum 0.7 mg/dL (0.51-0.95); Potassium 2.9 mmol/L (3.5-5.0); eGFR CKD-EPI 86.3 (>60)
[2023-12-05] MEDS: KCL 20 MEQ/100 ML IVPREMIX 20 MEQ/100 ML BAG IV SCH (08:43)
[2023-12-05] MEDS: Potassium EFFERVES 25 meq TAB PO ONE (09:30)
[2023-12-05] MEDS ORDERED: Levalbuterol HFA INHALER MDI ONE (15:04)
[2023-12-05] MEDS: Enoxaparin 40 MG/0.4 ML SYR SUBCUT SCH (18:22)
[2023-12-06 07:07] LABS: ABS Lymphocytes 2.2 10^3/uL (1.0-4.8); ABS Monocytes 1.1 10^3/uL (0.0-0.9); ABS Nucleated RBC 0.11 10^3/ul; Eosinophil % 0.4 %; Hematocrit 29.1 % (35-45); Hemoglobin 9.2 g/dL (11.5-14.3); Lymphocyte % 26.6 %; Mean Corpuscular Hemoglobin 28.5 pg (27-33); Mean Corpuscular Hgb Conc 31.7 g/dL (31-36); Mean Corpuscular Volume 90.1 fL (80-97); Mean Platelet Volume 9.1 fL (7.5-11.2); Nucleated Red Blood Cells % 1.3 %/100WBC (0.0-0.8); Platelet Count 258 10^3/uL (150-450); Red Blood Count 3.23 10^6/uL (3.63-4.92); Red Cell Distribution Width 17.3 % (12-17); White Blood Count 8.4 10^3/uL (3.8-11.8)
[2023-12-06 07:23] LABS: Calcium 8.5 mg/dL (8.6-10.3); Creatinine, Serum 0.7 mg/dL (0.51-0.95); Magnesium 1.8 mg/dL (1.9-2.7); Potassium 3.4 mmol/L (3.5-5.0); eGFR CKD-EPI 86.3 (>60)
[2023-12-06] MEDS: Magnesium Sulfate 2 gm BAG 2 GM/50 ML BAG IVPB ONE (09:14)
[2023-12-06] MEDS: Potassium EFFERVES 25 meq TAB PO ONE (09:30)
[2023-12-06 13:29] VITALS: BP 161/61
[2023-12-06] MEDS: Influenza Vaccine *TRI* 2024-25* 0.5 ML SYRINGE IM ONE (14:01)
== END 2023-12-06 15:20 | disposition home or self-care (01) | DRG 291 ==
LOC: ED 12:56 → EDHOLD 12:56 → SUATTDRO 15:16 → MED 16:14
PROVIDERS: ADMIT Internal Medicine; ATTEND Student in an Organized Health Care Education/Training Program